=== PATIENT | female | born 1955 | race Caucasian/White ===

== ENCOUNTER 2018-02-28 07:09 | Observation (INO) | payer OTHER ==
[2018-02-28 08:32] LABS: Absolute Lymphocytes (CBC) 0.6 K/uL (0.7-4.9); Absolute Monocytes 0.5 K/uL (0.1-1.3); Absolute Neutrophil 13.1 K/uL (1.8-8.0); Basophils % 0.2 % (0-1.3); Eosinophils % 0.7 % (0-4.4); Hematocrit 32.8 % (36.0-45.0); MCH 29.2 pg (27.0-35.0); MCV 86.3 fL (80-100); MPV 8.9 fL (7.6-11.3); Monocytes % 3.3 % (3.3-12.3)
[2018-02-28] MEDS ORDERED: HYDROCODONE/APAP 10/325 TAB ONE (08:35)
[2018-02-28] MEDS ORDERED: IBUPROFEN 400 MG TAB ONE (08:35)
[2018-02-28] MEDS ORDERED: ONDANSETRON 4 MG (ODT) TAB ONE (08:35)
[2018-02-28 08:50] LABS: Potassium 3.7 mEq/L (3.6-5.0)
--- NOTE | 2018-02-28 08:51 | RAD REPORT ---
EXAM DESCRIPTION: Dasia Single View02/28/2018 7:57 am CLINICAL HISTORY: Chest pain COMPARISON: February 2017 FINDINGS: A mild patchy opacity is suspected within the mid left lung. The right lung appear clear o f acute infiltrate. The heart is normal size IMPRESSION: Mild patchy opacities suspected within the mid left lung probably indicating a mild pneu monia
[2018-02-28 08:52] LABS: Protime INR 1.06
[2018-02-28 08:56] LABS: Albumin 4.1 g/dL (3.2-5.5); Bilirubin Direct 0.2 mg/dL (0-0.2); Bilirubin Total 0.2 mg/dL (0.3-1.2); Magnesium 1.7 mg/dL (1.8-2.5); Protein, Total 7.4 g/dL (6.0-8.3)
[2018-02-28 08:59] LABS: CKMB Creatine Kinase MB 0.6 ng/ml (0.3-4.0)
[2018-02-28] MEDS ORDERED: IPRATROPIUM BROM 0.5MG/2.5ML ONE (09:20)
[2018-02-28] MEDS ORDERED: ALBUTEROL 2.5 MG/3 ML NEB SOL ONE (09:20)
[2018-02-28] MEDS ORDERED: MAGNESIUM OXIDE 400 MG TAB ONE (09:49)
[2018-02-28] MEDS ORDERED: NA CHLORIDE 0.9% 1,000 ML ONE (09:50)
[2018-02-28] MEDS ORDERED: Levofloxacin500mg IV 500 MG/100 ML BAG IV ONE (09:50)
--- NOTE | 2018-02-28 10:10 | EDPHYS ---
Physician Documentation [facility] Name: Dulce Cerna Age: 62 yrs Sex: Female : 1955 Arrival Date: 02/28/2018 Time: 07:12 Bed 17 Private MD: Brayan Valladares E ED Physician Brad Hernández HPI: 02/28 07:21 This 62 yrs old Female presents to ER via Unassigned with complaints of Fever.kav 07:34 The patient reports fever, that was measured at 103 degrees Fahrenheit, with an kav emergency department temperature of 100.6 degrees Fahrenheit. 07:35 Onset: The symptoms/episode began/occurred acutely, this morning, 4 hour(s) ago. kav Modifying factors: Recent medications: acetaminophen, 640 mg 4 hours ago. Other over the counter cough medication administered approximately 0330 am. Associated signs and symptoms: Pertinent positives: abdominal pain, backache, cough, that is dry, diarrhea, nausea. Severity of symptoms: At their worst the symptoms were mild just prior to arrival. The patient has not experienced similar symptoms in the past. The patient has not recently seen a physician. pmhx: chronic back pain, graciela's disease. 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 07:41 Patient reports back pain \T\ 1010 on physical assessment. She also c/o nausea. kav Historical: - Allergies: 07:21 Sulfa (Sulfonamide Antibiotics); rb1 07:21 PENICILLINS; rb1 - Home Meds: 07:21 amitriptyline 100 mg Oral tab 1 tab once daily [Active]; cyclobenzaprine 10 mg Oral tab rb1 as needed [Active]; fludrocortisone 0.1 mg Oral tab 1 tab once daily [Active]; liothyronine 5 mcg Oral tab 1 tab once daily [Active]; duloxetine 60 mg Oral cpDR 1 cap twice a day [Active]; aspirin 81 mg Oral TbEC 1 tab once daily [Active]; estradiol 2 mg Oral tab 1 tab once daily [Active]; hydrocortisone 10 mg Oral tab 1 tab noon [Active]; clear lax [Active]; clonazepam 2 mg Oral tab 1 tab 2 times per day [Active]; oxycodone 10 mg Oral tab 1 tab three times a day [Active]; Omeprazole Oral once daily [Active]; rosuvastatin 10 mg oral tab 1 tab once daily [Active]; zaleplon 5 mg oral cap 2 caps once daily [Active]; trazodone 50 mg Oral tab 1 tab daily [Active]; melatonin 10 mg Oral tab daily [Active]; valerian root oral oral nightly [Active]; promethazine 25 mg Oral tab 1 tab every 6 hours [Active]; - 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 - Family history:: not pertinent. - Social history:: Smoking status: Patient/guardian denies using tobacco, Patient/guardian denies using alcohol. - Hospitalizations: : No recent hospitalization is reported. - History obtained from: friend, caregiver. ROS: 07:38 Eyes: Negative for injury, pain, redness, and discharge, ENT: Negative for injury, kav pain, and discharge, Neck: Negative for injury, pain, and swelling, Cardiovascular: Negative for chest pain, palpitations, and edema, : Negative for injury, bleeding, discharge, and swelling, MS/Extremity: Negative for injury and deformity, Skin: Negative for injury, rash, and discoloration, Neuro: Negative for headache, weakness, numbness, tingling, and seizure, Psych: Negative for depression, anxiety, suicide ideation, homicidal ideation, and hallucinations, Allergy/Immunology: Negative for hives, rash, and allergies, Endocrine: Negative for neck swelling, polydipsia, polyuria, polyphagia, and marked weight changes, Hematologic/Lymphatic: Negative for swollen nodes, abnormal bleeding, and unusual bruising. 07:38 Constitutional: Positive for chills, fever. 07:38 Respiratory: Positive for cough, with no reported sputum. 07:38 Abdomen/GI: Positive for abdominal pain, of the right upper quadrant, left upper quadrant, right lower quadrant and left lower quadrant. 07:38 Back: Positive for pain at rest, pain with movement, of the lumbar area, left low back and right low back, pmhx: chronic back pain. Exam: 07:38 Head/Face: Normocephalic, atraumatic. Eyes: Pupils equal round and reactive to light, kav extra-ocular motions intact. Lids and lashes normal. Conjunctiva and sclera are non-icteric and not injected. Cornea within normal limits. Periorbital areas with no swelling, redness, or edema. ENT: Nares patent. No nasal discharge, no septal abnormalities noted. Tympanic membranes are normal and external auditory canals are clear. Oropharynx with no redness, swelling, or masses, exudates, or evidence of obstruction, uvula midline. Mucous membranes moist. Neck: Trachea midline, no thyromegaly or masses palpated, and no cervical lymphadenopathy. Supple, full range of motion without nuchal rigidity, or vertebral point tenderness. No Meningismus. Chest/axilla: Normal chest wall appearance and motion. Nontender with no deformity. No lesions are appreciated. Cardiovascular: Regular rate and rhythm with a normal S1 and S2. No gallops, murmurs, or rubs. Normal PMI, no JVD. No pulse deficits. Back: No spinal tenderness. No costovertebral tenderness. Full range of motion. Skin: Warm, dry with normal turgor. Normal color with no rashes, no lesions, and no evidence of cellulitis. MS/ Extremity: Pulses equal, no cyanosis. Neurovascular intact. Full, normal range of motion. Neuro: Awake and alert, GCS 15, oriented to person, place, time, and situation. Cranial nerves II-XII grossly intact. Motor strength 5/5 in all extremities. Sensory grossly intact. Cerebellar exam normal. Normal gait. Psych: Awake, alert, with orientation to person, place and time. Behavior, mood, and affect are within normal limits. 07:38 Constitutional: The patient appears in no acute distress, alert, awake, comfortable, non-diaphoretic, non-toxic, well developed, well hydrated, well groomed, well nourished, anxious, obese, in obvious distress, moderately distressed. 07:38 Respiratory: the patient does not display signs of respiratory distress, Respirations: normal, no acute changes, Breath sounds: decreased breath sounds, that are mild, are scattered. Vital Signs: 07:21 BP 156 / 66; Pulse 91; Resp 20; Temp 100.6(O); Pulse Ox 96% on R/A; Weight 80.29 kg; rb1 Height 5 ft. 3 in. (160.02 cm); Pain 8/10; 08:34 BP 130 / 85; Pulse 90; Resp 18; Temp 99.8(O); Pulse Ox 97% on R/A; hj 09:49 BP 137 / 70; Pulse 85; Resp 18; Pulse Ox 97% on R/A; hj 10:45 BP 127 / 89; Pulse 86; Resp 18; Pulse Ox 97% on R/A; hj 11:30 BP 96 / 39; Pulse 89; Resp 18; Temp 99.1(O); Pulse Ox 97% on R/A; hj 11:54 BP 97 / 37; Pulse 80; Resp 18; Pulse Ox 97% on R/A; hj 11:58 BP 100 / 37; Pulse 84; Resp 18; Pulse Ox 97% on R/A; hj 07:21 Body Mass Index 31.35 (80.29 kg, 160.02 cm) rb1 Procedures: 11:41 Peripheral line: by aseptic technique a peripheral line was placed in the left left mid rn bicep. MDM: 07:21 Patient medically screened. kav 07:38 Differential diagnosis: viral Infection, bacterial infection, URI, bronchitis, kav pneumonia UTI. Data reviewed: vital signs, nurses notes. 09:59 Physician consultation: Siddhartha Son MD was called at 10:00, was contacted at 10:00. ka 10:01 Physician consultation: regarding admission, and will see patient in unit. v 02/28 07:32 Order name: Amylase, Serum; Complete Time: 09:03 v 02/28 09:03 Interpretation: Within normal limits. 02/28 07:32 Order name: Blood Culture Adult (2) 02/28 07:32 Order name: BMP; Complete Time: 09:03 v 02/28 09:04 Interpretation: Normal except: NA 132; CL 97; GFR 75. 02/28 07:32 Order name: BNP; Complete Time: 09:56 v 02/28 09:58 Interpretation: Within normal limits. 02/28 07:32 Order name: CBC with Diff; Complete Time: 11:09 v 02/28 08:49 Interpretation: WBC 14.3; RBC 3.80; HGB 11.1; HCT 32.8; STIVEN% 91.8; LYM% 4.0; NEUT A kav 13.1; LYMA 0.6. 02/28 07:32 Order name: Ckmb; Complete Time: 09:03 kav 02/28 09:03 Interpretation: Within normal limits. kav 02/28 07:32 Order name: CPK; Complete Time: 09:03 kav 02/28 09:03 Interpretation: Within normal limits. kav 02/28 07:32 Order name: Hepatic Function; Complete Time: 09:03 kav 02/28 09:04 Interpretation: BILIT 0.2. kav 02/28 07:32 Order name: Lipase; Complete Time: 09:03 kav 02/28 09:04 Interpretation: Abnormal: LIP 11. kav 02/28 07:32 Order name: Magnesium; Complete Time: 09:03 kav 02/28 09:05 Interpretation: Abnormal: MG 1.7. kav 02/28 07:32 Order name: PT-INR; Complete Time: 09:03 kav 02/28 09:03 Interpretation: Within normal limits. 02/28 07:32 Order name: Ptt, Activated; Complete Time: 09:03 kav 02/28 09:03 Interpretation: Within normal limits. kav 02/28 07:32 Order name: Troponin (emerg Dept Use Only); Complete Time: 09:03 kav 02/28 09:03 Interpretation: Within normal limits. v 02/28 10:31 Order name: CBC Smear Scan; Complete Time: 10:50 EDMS 02/28 10:50 Interpretation: Normal except: Toxic gran. kav 02/28 07:32 Order name: XRAY CXR (1 view); Complete Time: 08:55 kav 02/28 08:56 Interpretation: Abnormal: Patchy apacities mid-left lung. kav 02/28 07:32 Order name: EKG; Complete Time: 07:32 kav 02/28 07:32 Order name: Cardiac monitoring; Complete Time: 07:34 kav 02/28 07:32 Order name: EKG - Nurse/Tech; Complete Time: 08:23 kav 02/28 11:59 Order name: Urine Dipstick--Ancillary (enter results) bd 02/28 07:32 Order name: Labs collected and sent; Complete Time: 08:23 kav 02/28 07:32 Order name: O2 Per Protocol; Complete Time: 07:34 kav 04/08 07:32 Order name: O2 Sat Monitoring; Complete Time: 07:34 kav Administered Medications: 07:35 Drug: Ibuprofen 800 mg Route: PO; hj 08:32 Follow up: Response: Pain is decreased hj 08:10 Drug: [place] 10 mg-325 mg 1 tabs Route: PO; hj 08:32 Follow up: Response: No adverse reaction; Pain is decreased hj 08:10 Drug: Zofran 4 mg Route: PO; hj 08:34 Follow up: Response: Nausea is decreased hj 08:11 Not Given (no iv access): NS 0.9% 1000 ml IV at 125 ml/hr continuous kav 08:11 Not Given (no iv access): Zofran 4 mg IVP once; over 2 minutes kav 08:11 Not Given (no iv access): morphine 4 mg IVP once kav 08:57 Drug: DuoNeb (3:1) (2.5 mg - 0.5 mg) 3 ml Route: Nebulizer; hj 09:28 Follow up: Response: No adverse reaction; Wheezing diminished hj 09:28 Drug: LevaQUIN 500 mg Volume: 100 ml; Route: IVPB; Infused Over: 60 mins; Site: right hj antecubital; 09:28 Drug: Magnesium Oxide 400 mg Route: PO; hj 09:41 Follow up: Response: No adverse reaction hj 09:28 Drug: NS 0.9% 1000 ml Route: IV; Rate: 75 ml/hr; Site: right antecubital; hj 09:41 Follow up: IV Status: Infusion continued upon admission hj Disposition: 16:11 Co-signature as Attending Physician, Brad Hernández MD. rn Disposition: 02/28/18 10:09 Hospitalization ordered by Siddhartha Son for Inpatient Admission. Preliminary diagnosis is Pneumonia in diseases classified elsewhere. - Bed requested for Telemetry/MedSurg (Inpatient). - Status is Inpatient Admission. hj - Condition is Stable. - Problem is new. - Symptoms have improved. UTI on Admission? No Signatures: Dispatcher [employer] EDMS Alisa Godwin Katherine, CURTAIN FELLER BLINDSTITCH CURTAIN FELLER BLINDSTITCH Brad Pompa MD MD rn Joaquin, Henry, RN RN hj Barber, Rebecca, RN RN rb1 Corrections: (The following items were deleted from the chart) 08:49 08:49 Normal except: WBC 14.3; RBC 3.80; HGB 11.1; HCT 32.8; STIVEN% 91.8; LYM% 4.0; NEUT kav A 13.1; LYMA 0.6. adonis 09:04 09:04 Abnormal. adonis lamb
--- NOTE | 2018-02-28 10:10 | ER ---
Nurse's Notes [facility] Name: Dulce Cerna Age: 62 yrs Sex: Female : 1955 Arrival Date: 02/28/2018 Time: 07:12 Bed 17 Private MD: Brayan Valladares E Diagnosis: Pneumonia in diseases classified elsewhere Presentation: 02/28 07:21 Presenting complaint: Patient states: started running a fever at 0330 this morning and rb1 has a headache. Transition of care: patient was not received from another setting of care. Onset of symptoms was February 28, 2018 at 03:30. Care prior to arrival: Medication(s) given: Tylenol, Hydrocortisone, a total of 50 mg since 0330 this morning, and Robitussin. 07:21 Method Of Arrival: Ambulatory rb1 07:21 Acuity: TRACY 3 rb1 Triage Assessment: 07:21 General: Appears in no apparent distress. comfortable, obese, Behavior is calm, rb1 cooperative, Reports chills for fever for 12-24 hours. Pain: Complains of pain in right side of forehead Pain currently is 8 out of 10 on a pain scale. Pain began 0330 this morning. Neuro: Level of Consciousness is awake, alert, obeys commands, Oriented to person, place, time, situation. Cardiovascular: Capillary refill < 3 seconds is brisk in bilateral fingers. Respiratory: Airway is patent Respiratory effort is even, unlabored, Respiratory pattern is regular, symmetrical. GI: Reports constipation, nausea. : No signs and/or symptoms were reported regarding the genitourinary system. Derm: Skin is pink, warm \T\ dry. Musculoskeletal: Range of motion: intact in all extremities. Historical: - Allergies: 07:21 Sulfa (Sulfonamide Antibiotics); rb1 07:21 PENICILLINS; rb1 - Home Meds: 07:21 amitriptyline 100 mg Oral tab 1 tab once daily [Active]; cyclobenzaprine 10 mg Oral tab rb1 as needed [Active]; fludrocortisone 0.1 mg Oral tab 1 tab once daily [Active]; liothyronine 5 mcg Oral tab 1 tab once daily [Active]; duloxetine 60 mg Oral cpDR 1 cap twice a day [Active]; aspirin 81 mg Oral TbEC 1 tab once daily [Active]; estradiol 2 mg Oral tab 1 tab once daily [Active]; hydrocortisone 10 mg Oral tab 1 tab noon [Active]; clear lax [Active]; clonazepam 2 mg Oral tab 1 tab 2 times per day [Active]; oxycodone 10 mg Oral tab 1 tab three times a day [Active]; Omeprazole Oral once daily [Active]; rosuvastatin 10 mg oral tab 1 tab once daily [Active]; zaleplon 5 mg oral cap 2 caps once daily [Active]; trazodone 50 mg Oral tab 1 tab daily [Active]; melatonin 10 mg Oral tab daily [Active]; valerian root oral oral nightly [Active]; promethazine 25 mg Oral tab 1 tab every 6 hours [Active]; - 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 - Family history:: not pertinent. - Social history:: Smoking status: Patient/guardian denies using tobacco, Patient/guardian denies using alcohol. - Hospitalizations: : No recent hospitalization is reported. - History obtained from: friend, caregiver. Screenin:35 Abuse screen: Denies threats or abuse. Denies injuries from another. Nutritional hj screening: No deficits noted. Tuberculosis screening: No symptoms or risk factors identified. Fall Risk None identified. Assessment: 07:35 General: Appears in no apparent distress. comfortable, Behavior is calm, cooperative, hj appropriate for age. General: Appears Reports fever for since 3:30 am today. Pain: Denies pain. Neuro: Level of Consciousness is awake, alert, obeys commands, Oriented to person, place, time, situation, Appropriate for age. Cardiovascular: Capillary refill < 3 seconds Patient's skin is warm and dry. Respiratory: Airway is patent Respiratory effort is even, unlabored, Respiratory pattern is regular, symmetrical. GI: No signs and/or symptoms were reported involving the gastrointestinal system. : No signs and/or symptoms were reported regarding the genitourinary system. EENT: No signs and/or symptoms were reported regarding the EENT system. Derm: No signs and/or symptoms reported regarding the dermatologic system. Musculoskeletal: No signs and/or symptoms reported regarding the musculoskeletal system. 08:30 Reassessment: Patient and/or family updated on plan of care and expected duration. Pain hj level reassessed. Patient is alert, oriented x 3, equal unlabored respirations, skin warm/dry/pink. pending results; still to insert IV;. 09:48 Reassessment: Patient and/or family updated on plan of care and expected duration. Pain hj level reassessed. Patient is alert, oriented x 3, equal unlabored respirations, skin warm/dry/pink. awaiting POC;. 10:45 Reassessment: Patient and/or family updated on plan of care and expected duration. Pain hj level reassessed. Patient is alert, oriented x 3, equal unlabored respirations, skin warm/dry/pink. feels she has fever; still no IV line, have requested ED doc to start one;. 11:51 Reassessment: Patient and/or family updated on plan of care and expected duration. Pain hj level reassessed. Patient is alert, oriented x 3, equal unlabored respirations, skin warm/dry/pink. line is in place;. Vital Signs: 07:21 BP 156 / 66; Pulse 91; Resp 20; Temp 100.6(O); Pulse Ox 96% on R/A; Weight 80.29 kg; rb1 Height 5 ft. 3 in. (160.02 cm); Pain 8/10; 08:34 BP 130 / 85; Pulse 90; Resp 18; Temp 99.8(O); Pulse Ox 97% on R/A; hj 09:49 BP 137 / 70; Pulse 85; Resp 18; Pulse Ox 97% on R/A; hj 10:45 BP 127 / 89; Pulse 86; Resp 18; Pulse Ox 97% on R/A; hj 11:30 BP 96 / 39; Pulse 89; Resp 18; Temp 99.1(O); Pulse Ox 97% on R/A; hj 11:54 BP 97 / 37; Pulse 80; Resp 18; Pulse Ox 97% on R/A; hj 11:58 BP 100 / 37; Pulse 84; Resp 18; Pulse Ox 97% on R/A; hj 07:21 Body Mass Index 31.35 (80.29 kg, 160.02 cm) rb1 ED Course: 07:12 Patient arrived in ED. as 07:12 Brayan Valladares MD is Private Physician. as 07:21 [facility]. kav 07:21 Brad Hernández MD is Attending Physician. kav 07:35 Arm band placed on right wrist. hj 07:35 Patient has correct armband on for positive identification. Placed in gown. Bed in low hj position. Call light in reach. Side rails up X2. Adult w/ patient. 07:53 Marcia Jensen, RN is Primary Nurse. ss 07:56 X-ray completed. Portable x-ray completed in exam room. Patient tolerated procedure la2 well. 07:57 XRAY CXR (1 view) In Process Unspecified. EDMS 07:59 Triage completed. rb1 08:21 Amylase, Serum Sent. hj 08:22 Blood Culture Adult (2) Sent. hj 08:22 BMP Sent. hj 08:22 BNP Sent. hj 08:22 CBC with Diff Sent. hj 08:22 Ckmb Sent. hj 08:22 CPK Sent. hj 08:22 Hepatic Function Sent. hj 08:22 Lipase Sent. hj 08:22 Magnesium Sent. hj 08:22 PT-INR Sent. hj 08:22 Ptt, Activated Sent. hj 08:23 Troponin (emerg Dept Use Only) Sent. hj 09:28 Inserted saline lock: 18 gauge in right antecubital area, using aseptic technique. hj 10:03 Siddhartha Son MD is Hospitalizing Provider. kav 11:30 Inserted saline lock: 16 gauge in left antecubital area, using aseptic technique. hj ,using aseptic technique. Dr. Hernández. 12:17 No provider procedures requiring assistance completed. Patient admitted, IV remains in hj place. intact. Administered Medications: 07:35 Drug: Ibuprofen 800 mg Route: PO; hj 08:32 Follow up: Response: Pain is decreased hj 08:10 Drug: [place] 10 mg-325 mg 1 tabs Route: PO; hj 08:32 Follow up: Response: No adverse reaction; Pain is decreased hj 08:10 Drug: Zofran 4 mg Route: PO; hj 08:34 Follow up: Response: Nausea is decreased hj 08:11 Not Given (no iv access): NS 0.9% 1000 ml IV at 125 ml/hr continuous kav 08:11 Not Given (no iv access): Zofran 4 mg IVP once; over 2 minutes kav 08:11 Not Given (no iv access): morphine 4 mg IVP once kav 08:57 Drug: DuoNeb (3:1) (2.5 mg - 0.5 mg) 3 ml Route: Nebulizer; : Follow up: Response: No adverse reaction; Wheezing diminished hj : Drug: LevaQUIN 500 mg Volume: 100 ml; Route: IVPB; Infused Over: 60 mins; Site: right antecubital; : Drug: Magnesium Oxide 400 mg Route: PO; 09:41 Follow up: Response: No adverse reaction hj : Drug: NS 0.9% 1000 ml Route: IV; Rate: 75 ml/hr; Site: right antecubital; hj 09:41 Follow up: IV Status: Infusion continued upon admission Outcome: 10:09 Decision to Hospitalize by Provider. adonis 12:17 Admitted to Med/surg accompanied by tech, via wheelchair, room 211, with chart, Report hj called to Linsey Flores RN 12:17 Condition: stable 12:17 Instructed on the need for admit, Demonstrated understanding of instructions. 12:25 Patient left the ED. Signatures: Dispatcher [employer] EDMS Cori Cavazos, HOSPITAL CHIEF EXECUTIVE OFFICER HOSPITAL CHIEF EXECUTIVE OFFICER Jaleesa Benítez Shelby, RN RN Bill Dougherty RN RN hj Barber, Rebecca, ROYAL RN Brii Esparza Corrections: (The following items were deleted from the chart) 09:49 08:34 BP 130 / 85; Pulse 90bpm; Resp 18bpm; Pulse Ox 100% RA; Temp 99.8F Oral; [facility]
--- NOTE | 2018-02-28 10:19 | EKG ---
Test Date: 2018-02-28 Test Time: 08:28:09 Renal Medicine Specialist: DOMENICA MEASUREMENT RESULTS: Intervals: Rate: 86 NV: 166 QRSD: 86 QT: 362 QTc: 433 [place]: P: 26 NV: 166 QRS: -7 T: 79 INTERPRETIVE STATEMENTS: Normal sinus rhythm Moderate voltage criteria for LVH, may be normal variant Borderline ECG Compared to ECG 02/25/2017 18:08:14 Sinus arrhythmia no longer present Electronically Signed On 02-28-18 10:19:02 CDT by Doug Kee
[2018-02-28 10:30] LABS: Blood Morphology Comment NOT SEEN (NOT SEEN); Platelet Estimate ADEQ; Toxic Granulation PRESENT; Urine White Blood Cell Casts OK
[2018-02-28 12:35] LABS: Urine Blood NEGATIVE (NEG); Urine Glucose NEGATIVE (NEG); Urine Protein NEGATIVE (NEG)
[2018-02-28 12:55] LABS: Potassium 3.8 mEq/L (3.6-5.0)
[2018-02-28 13:16] LABS: Albumin 4.1 g/dL (3.2-5.5); Bilirubin Total 0.3 mg/dL (0.3-1.2); Protein, Total 7.6 g/dL (6.0-8.3)
--- NOTE | 2018-02-28 14:09 | P.HP ---
Certification for Inpatient Patient admitted to: Observation With expected LOS: <2 Midnights Patient will require the following post-hospital care: None Practitioner: I am a practitioner with admitting privileges, knowledge of patient current condition, hospital course, and medical plan of care. Services: Services provided to patient in accordance with Admission requirements found in Title 42 Section 412.3 of the Code of Federal Regulations Patient History Date of Service: 02/28/18 Reason for admission: High fever History of Present Illness: Patient is 62 years of age admitted with sudden onset of high fever over 103 has some chest discomfort shortness of breath and slight cough admitted to the hospital with a diagnosis of pneumonia patient has a recurrent pneumonia is in the past has never smoked and no history of any cardiac problems Allergies Penicillins Allergy (Verified 02/28/18 10:52) Anaphylaxis Sulfa (Sulfonamide Antibiotics) [Sulfa(Sulfonamide Antibiotics)] Allergy ( Verified 02/28/18 10:52) Anaphylaxis NSAIDS Adverse Reaction (Uncoded 02/28/18 10:52) Nausea/Vomiting Home Medications: Amitriptyline HCl 100 mg PO DAILY 09/07/16 Aspirin [Aspir-Low] 81 mg PO DAILY 09/07/16 Duloxetine HCl 60 mg PO BID 09/07/16 Estradiol 2 mg PO DAILY 09/07/16 Fludrocortisone [Florinef *] 0.1 mg PO DAILY 09/07/16 Liothyronine Sodium [Cytomel] 5 mcg PO DAILY 09/07/16 Clonazepam 2 mg PO BID 02/28/18 Cyclobenzaprine [Flexeril*] 10 mg PO PRN 02/28/18 Hydrocortisone [Cortef*] 10 mg PO NOON 02/28/18 Melatonin 10 mg PO BEDTIME 02/28/18 Omeprazole 10 mg PO DAILY 02/28/18 Oxycodone HCl 10 mg PO TID 02/28/18 Polyethylene Glycol 3350 [Clearlax] 17 gm PO PRN 02/28/18 Promethazine HCl 25 mg PO Q6HR 02/28/18 Rosuvastatin [Crestor*] 10 mg PO DAILY 02/28/18 Trazodone [Desyrel*] 50 mg PO DAILY 02/28/18 Valerian Root Extract [Valerian] 150 mg PO BEDTIME 02/28/18 Zaleplon 10 mg PO DAILY 02/28/18 - Past Medical/Surgical History Diabetic: No -: Addisons -: Irritable Bowel Syndrome -: Cholecystectomy -: Appy -: -: Hysterectomy - Social History Smoking Status: Former smoker Alcohol use: No CD- Drugs: No Caffeine use: No Review of Systems 10-point ROS is otherwise unremarkable General: Fever, Weakness Respiratory: Cough, Shortness of Breath Physical Examination - Vital Signs Temperature: 99.1 F Blood Pressure: 100/37 Pulse: 84 Respirations: 18 - Physical Exam General: Alert, Oriented x3 HEENT: Atraumatic Neck: Supple Respiratory: Crackles/rales (Patient has some crackles on the left side right lung is clear) Cardiovascular: No edema, Regular rate/rhythm, Normal S1 S2 Gastrointestinal: Normal bowel sounds, Soft and benign Musculoskeletal: No clubbing, No swelling Integumentary: No rashes, No breakdown Neurological: Normal speech, Normal strength at 5/5 x4 extr - Studies Laboratory Data (last 24 hrs) 02/28/18 08:07: Sodium 134 L, Potassium 3.8, BUN 8, Creatinine 0.85, Glucose 116 , Total Bilirubin 0.3, AST 43 H, ALT 28, Alkaline Phosphatase 97 02/28/18 08:07: PT 12.5, INR 1.06, APTT 30.0 02/28/18 08:07: WBC 14.3 H, Hgb 11.1 L, Hct 32.8 L, Plt Count 230 02/28/18 08:07: B-Natriuretic Peptide 28 02/28/18 08:07: Sodium 132 L, Potassium 3.7, BUN 8, Creatinine 0.78, Glucose 118 , Magnesium 1.7 L, Total Bilirubin 0.2 L, AST 42, ALT 28, Alkaline Phosphatase 97, Amylase 44, Lipase 11 L Assessment and Plan - Problems (Diagnosis) (1) Pneumonia Current Visit: Yes Status: Acute Plan: Patient is 62 years of age admitted with sudden onset of fever some chest discomfort cough she appears to have a left mid-zone infiltrate white count is mildly elevated most likely she has a pneumonia patient can be discharged home tomorrow on antibiotics for community-acquired pneumonia labs x-rays reviewed all medications reviewed patient has a slight fever resume regular diet patient has Walford's disease Qualifiers: Pneumonia type: due to unspecified organism - Advance Directives Does patient have a Living Will: No Does patient have a Durable POA for Healthcare: No
[2018-02-28] MEDS ORDERED: POLYETHYLENE GLYCOL 17 GM PO SCH (14:15)
[2018-02-28] MEDS ORDERED: clonazePAM 1 MG TAB PO SCH (15:00)
[2018-02-28] MEDS ORDERED: HYDROCORTISONE 10 MG TAB PO SCH (15:00)
[2018-02-28] MEDS ORDERED: CYCLOBENZAPRINE 10 MG TAB PO SCH (15:00)
[2018-02-28] MEDS ORDERED: PROMETHAZINE 25 MG TABLET PO PRN (15:25)
[2018-02-28 15:59] VITALS: BMI 31.3
[2018-02-28] MEDS: PROMETHAZINE 25 MG TABLET PO SCH (17:23)
[2018-02-28] MEDS ORDERED: PROMETHAZINE 25 MG TABLET PO SCH (18:00)
[2018-02-28] MEDS ORDERED: AMITRIPTYLINE HCL 100 MG PO SCH (21:00)
[2018-02-28] MEDS ORDERED: CLONAZEPAM 2 MG PO SCH (21:00)
[2018-02-28] MEDS ORDERED: ROSUVASTATIN 10 MG TAB PO SCH ×2 (21:00)
[2018-02-28] MEDS: CYCLOBENZAPRINE 10 MG TAB PO SCH (21:22)
[2018-02-28] MEDS: DULOXETINE HCL 60 MG PO SCH (21:23)
[2018-02-28] MEDS: CLONAZEPAM 2 MG PO SCH (21:25)
[2018-02-28] MEDS: OXYCODONE HCL 10 MG PO SCH (21:25)
[2018-03-01 05:09] VITALS: O2SAT 95
[2018-03-01] MEDS: PROMETHAZINE 25 MG TABLET PO SCH ×2 (05:36)
[2018-03-01] MEDS ORDERED: LIOTHYRONINE SOD 5 MCG TAB PO SCH ×2 (06:00)
[2018-03-01] MEDS ORDERED: FLUDROCORTISONE 0.1 MG TAB PO SCH ×2 (08:00)
[2018-03-01 08:06] LABS: Absolute Lymphocytes (CBC) 2.4 K/uL (0.7-4.9); Absolute Monocytes 0.6 K/uL (0.1-1.3); Absolute Neutrophil 7.4 K/uL (1.8-8.0); Basophils % 0.5 % (0-1.3); Eosinophils % 2.3 % (0-4.4); Hematocrit 32.4 % (36.0-45.0); Lymphocytes % 22.3 % (15.3-44.8); MCH 28.9 pg (27.0-35.0); MCV 88.7 fL (80-100); MPV 8.4 fL (7.6-11.3); Monocytes % 5.2 % (3.3-12.3); RBC Red Blood Cell Count 3.66 M/uL (3.86-4.86)
[2018-03-01] MEDS: DULOXETINE HCL 60 MG PO SCH (08:29)
[2018-03-01] MEDS: CYCLOBENZAPRINE 10 MG TAB PO SCH (08:31)
[2018-03-01] MEDS: CLONAZEPAM 2 MG PO SCH (08:32)
[2018-03-01] MEDS: OXYCODONE HCL 10 MG PO SCH (08:33)
[2018-03-01 08:40] VITALS: BP 130/70; TEMP 98.5
[2018-03-01] MEDS ORDERED: DULOXETINE 30 MG PO SCH (09:00)
[2018-03-01] MEDS ORDERED: ASPIRIN EC 81 MG TAB PO SCH (09:00)
[2018-03-01] MEDS ORDERED: levoFLOXacin 500 MG TAB PO SCH (09:00)
[2018-03-01] MEDS ORDERED: TRAZODONE 50 MG TABLET PO SCH ×3 (09:00→21:00)
[2018-03-01] MEDS ORDERED: HOME MED 1 EA UNK (Amitriptyline Hcl [Amitriptyline Hcl] 100 MG) PO SCH (09:00)
[2018-03-01] MEDS ORDERED: POLYETHYL GLY 3350 17 GM/DOSE PO SCH (09:00)
[2018-03-01] MEDS ORDERED: ZALEPLON 5 MG PO PRN (09:00)
[2018-03-01] MEDS ORDERED: POLYETHYL GLY 3350 17 GM/DOSE PO PRN (09:00)
--- NOTE | 2018-03-01 09:54 | P.DS ---
Admission Date: 02/28/18 Discharge Date: 03/01/18 Primary Care Provider: Dr. Valladares Disposition: ROUTINE DISCHARGE Discharge Condition: GOOD Reason for Admission: High fever - Problems (1) Hyperlipidemia Current Visit: Yes Status: Chronic Qualifiers: Hyperlipidemia type: unspecified Qualified Code(s): E78.5 - Hyperlipidemia , unspecified (2) GERD (gastroesophageal reflux disease) Current Visit: Yes Status: Chronic Qualifiers: Esophagitis presence: esophagitis presence not specified Qualified Code(s) : K21.9 - Gastro-esophageal reflux disease without esophagitis (3) Depression with anxiety Current Visit: Yes Status: Chronic (4) Irritable bowel disease Current Visit: Yes Status: Chronic Qualifiers: Irritable bowel syndrome type: unspecified Qualified Code(s): K58.9 - Irritable bowel syndrome without diarrhea (5) Chronic pain Current Visit: Yes Status: Chronic Qualifiers: Chronic pain type: chronic pain syndrome Qualified Code(s): G89.4 - Chronic pain syndrome (6) Pneumonia Current Visit: Yes Status: Acute Qualifiers: Pneumonia type: due to unspecified organism Laterality: left Lung location: lower lobe of lung Qualified Code(s): J18.1 - Lobar pneumonia, unspecified organism (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 Patient was evaluated in the emergency room. She was found to have pneumonia on the left side. Patient had mild elevation in her white count. The patient was admitted for observation. Hospital Course: Patient presented with cough and shortness of breath. Patient found to have left lobe pneumonia. Patient did well during her stay. The patient did not require any oxygen at discharge. At discharge she was without any significant shortness of breath. Oxygen saturations were above 90% on room air. At discharge patient will continue with Levaquin 500 mg 1 pill daily for 7 days. Tessalon Perles 100 mg 1 pill 3 times a day as needed for cough will be provided. Recommendation is to recheck chest x-ray in 2-4 weeks to monitor resolution. This can be done by her PCP. Patient has chronic pain. She will continue with her medication. Further adjustment can be done by her PCP. 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 She will continue with her medication. Patient has depression with anxiety. She will continue with her medication. Further adjustment can be done by her PCP. Patient has hyperlipidemia. She will continue with her medication. Patient has GERD and Irritable bowel syndrome. She will continue with her medication. Vital Signs/Physical Exam: Temp Pulse Resp BP Pulse Ox 98.5 F 78 16 130/70 94 03/01/18 08:00 03/01/18 08:00 03/01/18 08:00 03/01/18 08:00 03/01/18 08:00 General: Alert, In no apparent distress, Oriented x3, Cooperative HEENT: Atraumatic, Mucous membr. moist/pink Neck: Supple Respiratory: Clear to auscultation bilaterally, Normal air movement Cardiovascular: Normal pulses, Regular rate/rhythm Gastrointestinal: Normal bowel sounds, Soft and benign, Non-distended, No tenderness, No masses, No rebound, No guarding Musculoskeletal: No erythema, No tenderness, No warmth Integumentary: No tenderness/swelling, No erythema, No warmth, No cyanosis Neurological: Normal speech, Normal strength at 5/5 x4 extr, Normal tone, Normal affect Laboratory Data at Discharge: WBC 10.6 K/uL (4.3-10.9) D 03/01/18 07:55 Hgb 10.6 g/dL (12.0-15.0) L 03/01/18 07:55 Hct 32.4 % (36.0-45.0) L 03/01/18 07:55 Plt Count 231 K/uL (152-406) 03/01/18 07:55 PT 12.5 SECONDS (9.5-12.5) 02/28/18 08:07 INR 1.06 02/28/18 08:07 APTT 30.0 SECONDS (24.3-36.9) 02/28/18 08:07 Sodium 134 mEq/L (135-145) L 02/28/18 08:07 Potassium 3.8 mEq/L (3.6-5.0) 02/28/18 08:07 BUN 8 mg/dL (6-20) 02/28/18 08:07 Creatinine 0.85 mg/dL (0.44-1.00) 02/28/18 08:07 Glucose 116 mg/dL (65-120) 02/28/18 08:07 Magnesium 1.7 mg/dL (1.8-2.5) L 02/28/18 08:07 Total Bilirubin 0.3 mg/dL (0.3-1.2) 02/28/18 08:07 AST 43 IU/L (10-42) H 02/28/18 08:07 ALT 28 IU/L (10-60) 02/28/18 08:07 Alkaline Phosphatase 97 IU/L (42-121) 02/28/18 08:07 B-Natriuretic Peptide 28 pg/ml (<=100) 02/28/18 08:07 Amylase 44 U/L (28-100) 02/28/18 08:07 Lipase 11 U/L (22-51) L 02/28/18 08:07 Home Medications: Amitriptyline HCl 100 mg PO DAILY 09/07/16 Aspirin [Aspir-Low] 81 mg PO DAILY 09/07/16 Duloxetine HCl 60 mg PO BID 09/07/16 Estradiol 2 mg PO DAILY 09/07/16 Fludrocortisone [Florinef *] 0.1 mg PO DAILY 09/07/16 Liothyronine Sodium [Cytomel] 5 mcg PO DAILY 09/07/16 Clonazepam 2 mg PO BID 02/28/18 Cyclobenzaprine [Flexeril*] 10 mg PO PRN 02/28/18 Hydrocortisone [Cortef*] 10 mg PO NOON 02/28/18 Melatonin 10 mg PO BEDTIME 02/28/18 Omeprazole 10 mg PO DAILY 02/28/18 Oxycodone HCl 10 mg PO TID 02/28/18 Polyethylene Glycol 3350 [Clearlax] 17 gm PO PRN 02/28/18 Promethazine HCl 25 mg PO Q6HR 02/28/18 Rosuvastatin [Crestor*] 10 mg PO DAILY 02/28/18 Trazodone [Desyrel*] 50 mg PO DAILY 02/28/18 Valerian Root Extract [Valerian] 150 mg PO BEDTIME 02/28/18 Zaleplon 10 mg PO DAILY 02/28/18 Benzonatate [Tessalon Perle] 100 mg PO TID PRN #15 cap 03/01/18 Levofloxacin [Levaquin*] 500 mg PO DAILY #7 tab 03/01/18 New Medications: Benzonatate [Tessalon Perle] 100 mg PO TID PRN #15 cap PRN Reason: Cough Levofloxacin [Levaquin*] 500 mg PO DAILY #7 tab Patient Discharge Instructions: 1. Patient will need to follow up with her PCP in 1 week to follow up this hospitalization. 2. Patient presented with cough and shortness of breath. Patient found to have left lobe pneumonia. At discharge patient will continue with Levaquin 500 mg 1 pill daily for 7 days. Tessalon Perles 100 mg 1 pill 3 times a day as needed for cough will be provided. Recommendation is to recheck chest x-ray in 2-4 weeks to monitor resolution. This can be done by her PCP. 3. Patient has chronic pain. She will continue with her medication. Further adjustment can be done by her PCP. 4. 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 She will continue with her medication. 5. Patient has depression with anxiety. She will continue with her medication. Further adjustment can be done by her PCP. 6. Patient has hyperlipidemia. She will continue with her medication. 7. Patient has GERD and Irritable bowel syndrome. She will continue with her medication. Diet: AHA Activity: Fall precautions Time spent managing pt's care (in minutes): 55
[2018-03-01] MEDS ORDERED: Levofloxacin500mg IV 500 MG/100 ML BAG IV SCH (10:00)
[2018-03-01] MEDS ORDERED: HYDROCORTISONE 10 MG TAB PO SCH ×2 (12:00)
== END 2018-03-01 11:30 | disposition home or self-care (01) ==
LOC: ER 07:09 → ERHOLD 10:33 → INTOOBSV 10:33 → ERHOLD 10:34 → 2ND 12:10
PROVIDERS: ADMIT Internal Medicine Sleep Medicine; ATTEND Family Medicine
DX: J18.9 Pneumonia, unspecified organism (principal); E27.1 Primary adrenocortical insufficiency; K58.9 Irritable bowel syndrome, unspecified; E78.5 Hyperlipidemia, unspecified; K21.9 Gastro-esophageal reflux disease without esophagitis; G89.29 Other chronic pain; Z87.891 Personal history of nicotine dependence
CPT/HCPCS: 93005; 87040 ×2; 85025 ×2; 80048; 36415 ×2; 82150; 83735; 82550; 87205; 85610; 80076; 85730; 81003; 84484; 82553; 83690; 80053; 83880; 71045; 94640; 96374; 99285; J7030; G0378 ×2

== ENCOUNTER 2018-04-07 15:03 | Observation (INO) | payer OTHER ==
--- NOTE | 2018-04-07 17:14 | RAD REPORT ---
EXAM DESCRIPTION: CT - Head Brain Wo Cont - 04/07/2018 5:07 pm CLINICAL HISTORY: Syncope COMPARISON: February 2017 TECHNIQUE: Axial 5 mm thick images of the head were obtained without IV contrast. All CT scans are performed using dose optimization technique as appropriate and may include automated exposure control or mA/KV adjustment according to patient size. FINDINGS: No intracranial hemorrhage, mass, edema or shift of mid-line structures. No acute cortical based infarction. Atrophy is minimal. Moderate chronic ischemic changes are present. No abnormal ext ra-axial fluid collections. Ventricles are in proportion to any volume loss. Physiologic calcificatio ns are present. Mastoid air cells and visualized portions of the paranasal sinuses are clear. No acute bony findings. IMPRESSION: No acute intracranial finding. Minimal atrophy and more moderate chronic ischemic change present and similar to comparison.
--- NOTE | 2018-04-07 17:20 | EKG ---
Test Date: 2018-04-07 Test Time: 16:59:02 Literacy Education Professor: RAYMON MEASUREMENT RESULTS: Intervals: Rate: 70 SC: 148 QRSD: 88 QT: 400 QTc: 432 Burgess: P: 56 SC: 148 QRS: 11 T: 45 INTERPRETIVE STATEMENTS: Normal sinus rhythm Normal ECG Compared to ECG 02/28/2018 08:28:09 Left ventricular hypertrophy no longer present Electronically Signed On 04-07-18 17:19:40 CDT by Doug Kee
[2018-04-07 17:23] LABS: Urine Blood NEGATIVE (NEG); Urine Glucose NEGATIVE (NEG); Urine Protein NEGATIVE (NEG)
[2018-04-07] MEDS ORDERED: MORPHINE 4 MG/ML SYR ONE (17:29)
[2018-04-07] MEDS ORDERED: ONDANSETRON 4 MG/2 ML VIAL ONE ×2 (17:30→20:31)
--- NOTE | 2018-04-07 17:45 | RAD REPORT ---
EXAM DESCRIPTION: RAD - Chest Single View - 04/07/2018 5:15 pm CLINICAL HISTORY: Syncope, shortness of breath COMPARISON: February 28 TECHNIQUE: AP portable chest image was obtained 1710 hours . FINDINGS: Lungs are clear. Ill-defined opacification in the left midlung field on the February examinat ion has resolved. Trachea is midline. Heart and vasculature are normal. No measurable pleural effusio n and no pneumothorax. No gross bony abnormality seen. No acute aortic findings suspected. IMPRESSION: No acute cardiopulmonary process.
[2018-04-07 19:27] LABS: Absolute Lymphocytes (CBC) 1.3 K/uL (0.7-4.9); Absolute Monocytes 0.3 K/uL (0.1-1.3); Absolute Neutrophil 5.4 K/uL (1.8-8.0); Basophils % 0.3 % (0-1.3); Eosinophils % 0.8 % (0-4.4); Hematocrit 32.6 % (36.0-45.0); Lymphocytes % 18.1 % (15.3-44.8); MCH 28.1 pg (27.0-35.0); MCV 85.4 fL (80-100); MPV 8.6 fL (7.6-11.3); RBC Red Blood Cell Count 3.81 M/uL (3.86-4.86)
[2018-04-07 19:31] LABS: Protime INR 1.01
[2018-04-07 19:40] LABS: Bicarbonate 33 mEq/L (21-31); Glucose Level 101 mg/dL (65-120); Sodium Level 138 mEq/L (135-145)
[2018-04-07 19:46] LABS: ALT/SGPT 22 IU/L (10-60); AST/SGOT 23 IU/L (10-42); Albumin 3.9 g/dL (3.2-5.5); Alkaline Phosphatase 102 IU/L (42-121); BUN Blood Urea Nitrogen 9 mg/dL (6-20); Bilirubin Direct < 0.1 mg/dL (0-0.2); Bilirubin Total 0.3 mg/dL (0.3-1.2); Creatine Phosphokinase 38 IU/L (22-269); Magnesium 1.8 mg/dL (1.8-2.5); Protein, Total 7.3 g/dL (6.0-8.3)
[2018-04-07 19:48] LABS: CKMB Creatine Kinase MB 0.7 ng/ml (0.3-4.0)
--- NOTE | 2018-04-07 20:15 | ER ---
Nurse's Notes [facility] Name: Dulce Cerna Age: 62 yrs Sex: Female : 1955 Arrival Date: 04/07/2018 Time: 15:07 Bed 24 Private MD: Brayan Valladares E Diagnosis: Syncope and collapse;Weakness;Abdominal tenderness Presentation: 04/07 15:44 Presenting complaint: Presenting complaint: Patient states: Reports syncope when aj standing or moving too quickly. Patient was sent by Dr Valladares office after syncope in office. Also reports RUQ abdominal pain. Patient told she needed to come to ER to be admitted. 15:44 Transition of care: patient was not received from another setting of care. Onset of aj symptoms was April 07, 2018. Care prior to arrival: None. 15:44 Method Of Arrival: Wheelchair aj 15:44 Acuity: TRACY 3 aj 18:04 Initial Sepsis Screen: Does the patient meet any 2 criteria? No. Patient's initial tl3 sepsis screen is negative. Does the patient have a suspected source of infection? No. Patient's initial sepsis screen is negative. Triage Assessment: 15:47 General: Appears in no apparent distress. comfortable, Behavior is calm, cooperative, aj appropriate for age. Pain: Complains of pain in right upper quadrant. Neuro: Level of Consciousness is awake, alert, obeys commands, Oriented to person, place, time, situation, Appropriate for age Reports headache. Respiratory: Airway is patent Respiratory effort is even, unlabored, Respiratory pattern is regular, symmetrical. GI: Reports upper abdominal pain, nausea. Derm: Skin is intact, is healthy with good turgor, Skin is pink, warm \T\ dry. normal. Historical: - Allergies: 15:47 PENICILLINS; aj 15:47 Sulfa (Sulfonamide Antibiotics); aj - Home Meds: 15:47 aspirin 81 mg Oral TbEC 1 tab once daily [Active]; clear lax [Active]; clonazepam 2 mg aj Oral tab 1 tab 2 times per day [Active]; estradiol 2 mg Oral tab 1 tab once daily [Active]; melatonin 10 mg Oral tab daily [Active]; liothyronine 5 mcg Oral tab 1 tab once daily [Active]; oxycodone 10 mg Oral tab 1 tab three times a day [Active]; rosuvastatin 10 mg Oral tab 1 tab once daily [Active]; promethazine 25 mg Oral tab 1 tab every 6 hours [Active]; trazodone 50 mg Oral tab 1 tab daily [Active]; valerian root Oral nightly [Active]; zaleplon 5 mg Oral cap 2 caps once daily [Active]; 21:27 amitriptyline 100 mg Oral tab 1 tab once daily [Active]; cyclobenzaprine 10 mg Oral tab tl3 1 tab 2 times per day [Active]; duloxetine 90mg Oral cpDR 1 cap once daily [Active]; fludrocortisone 0.1 mg Oral tab 2 tabs once daily [Active]; hydrocortisone 10 mg Oral tab 2 tabs take two tablets in the am and one tablet at 2pm [Active]; omeprazole 40 mg oral cpDR 1 cap once daily [Active]; - PMHx: 15:47 addisons; Irritable bowel syndrome; TIA; aj - PSHx: 15:47 Hysterectomy; Appendectomy; Cholecystectomy; ; aj - Immunization history:: Adult Immunizations up to date. - Social history:: Smoking status: Patient/guardian denies using tobacco. Screenin:00 Abuse screen: Denies threats or abuse. Nutritional screening: No deficits noted. tl3 Tuberculosis screening: No symptoms or risk factors identified. Fall Risk Fall in past 12 months (25 points). Assessment: 16:00 General: Appears uncomfortable, well groomed, well developed, well nourished, Behavior tl3 is calm, cooperative, appropriate for age. Pain: Complains of pain in abdomen and right upper quadrant. Neuro: Level of Consciousness is awake, alert, obeys commands, Oriented to person, place, time, situation, Appropriate for age. Neuro: Reports dizziness, a syncopal episode. Cardiovascular: Heart tones S1 S2 present Rhythm is regular. Respiratory: Airway is patent Trachea midline Respiratory effort is even, unlabored, Respiratory pattern is regular, symmetrical, Breath sounds are clear bilaterally. GI: Abdomen is round Abdomen is tender to palpation in abdomen and right upper quadrant. : No signs and/or symptoms were reported regarding the genitourinary system. EENT: No signs and/or symptoms were reported regarding the EENT system. Derm: No signs and/or symptoms reported regarding the dermatologic system. Musculoskeletal: No signs and/or symptoms reported regarding the musculoskeletal system. 17:40 Reassessment: Patient appears in no apparent distress at this time. No changes from tl3 previously documented assessment. Patient and/or family updated on plan of care and expected duration. Pain level reassessed. Patient is alert, oriented x 3, equal unlabored respirations, skin warm/dry/pink. 17:43 Reassessment: Patient appears in no apparent distress at this time. No changes from tl3 previously documented assessment. Patient and/or family updated on plan of care and expected duration. Pain level reassessed. Patient is alert, oriented x 3, equal unlabored respirations, skin warm/dry/pink. ROYAL Trujillo placed IV, not able to draw blood. 18:05 Reassessment:. tl3 18:54 Reassessment: Patient appears in no apparent distress at this time. No changes from tl3 previously documented assessment. Patient and/or family updated on plan of care and expected duration. Pain level reassessed. Patient is alert, oriented x 3, equal unlabored respirations, skin warm/dry/pink. pt stuck multiple times for blood by RN's and twice by Lab unsuccessfully, Ultra sound requested. 21:16 Reassessment: pt in radiology for CT and ultra sound. tl3 21:30 Reassessment: Patient appears in no apparent distress at this time. No changes from tl3 previously documented assessment. Patient and/or family updated on plan of care and expected duration. Pain level reassessed. Patient is alert, oriented x 3, equal unlabored respirations, skin warm/dry/pink. Vital Signs: 15:47 BP 134 / 78; Pulse 76; Resp 18; Temp 97.8; Pulse Ox 96% on R/A; Weight 79.38 kg; Height aj 5 ft. 3 in. (160.02 cm); 18:54 BP 125 / 65; Pulse 68; Resp 18; Pulse Ox 100% on 2 lpm NC; tl3 21:30 BP 136 / 102; Pulse 68; Resp 18; Temp 97.7(O); Pulse Ox 97% on R/A; tl3 23:16 BP 166 / 89; Pulse 64; Resp 18; Pulse Ox 99% on R/A; tl3 15:47 Body Mass Index 31.00 (79.38 kg, 160.02 cm) ED Course: 15:07 Patient arrived in ED. rg4 15:07 Brayan Valladares MD is Private Physician. rg4 15:15 Jesus Butt MD is Attending Physician. kdr 15:46 Triage completed. aj 15:47 Arm band placed on right wrist. Patient placed in an exam room. aj 16:00 Aubree Guerra, RN is Primary Nurse. tl3 16:00 Patient has correct armband on for positive identification. Placed in gown. Bed in low tl3 position. Call light in reach. Side rails up X2. Pulse ox on. NIBP on. 16:00 No provider procedures requiring assistance completed. tl3 16:59 EKG done, by dialysis biomed technician. reviewed by Jesus Butt MD. at1 17:07 CT Head Brain wo Cont In Process Unspecified. EDMS 17:12 X-ray completed. Portable x-ray completed in exam room. Patient tolerated procedure bb2 well. 17:13 XRAY Chest (1 view) In Process Unspecified. EDMS 17:40 Inserted saline lock: 24 gauge in right forearm, using aseptic technique. tl3 19:53 Attending Physician role handed off by Jesus Butt MD christ 19:53 Fletcher Pruitt MD is Attending Physician. christ 20:08 Alicia Esquivel MD is Hospitalizing Provider. christ 20:25 Radiology exam delayed due to patient getting meds before coming to CT. nj 20:[address] via stretcher. nj 20:51 to ultrasound. nj 20:53 CT completed. Patient tolerated procedure well. nj 21:20 Ultrasound completed. Patient tolerated well. cy 23:39 Patient admitted, IV remains in place. tl3 04/08 14:28 Basic Metabolic Panel Sent. tl3 14:28 BNP Sent. tl3 14:28 CBC with Diff Sent. tl3 Administered Medications: 04/07 20:45 Drug: morphine 4 mg Route: IVP; Site: left antecubital; bb 21:16 Follow up: Response: No adverse reaction; Pain is decreased tl3 20:45 Drug: Zofran 4 mg Route: IVP; Site: left antecubital; bb 21:16 Follow up: Response: No adverse reaction; Nausea is decreased tl3 20:46 Not Given (Other Intervention Used): Pepcid 20 mg IVP once bb 20:46 Drug: Solu-CORTEF 100 mg Route: IVP; Site: left antecubital; bb 04/08 14:27 Follow up: Response: No adverse reaction tl3 04/07 21:36 Drug: ProTONIX 40 mg Route: IVP; Infused Over: 3 mins; Site: left antecubital; tl3 22:14 Follow up: Response: No adverse reaction tl3 Point of Care Testing: Blood Glucose: 23:20 Blood Glucose: 101 mg/dL; tl3 Ranges: Outcome: 20:14 Decision to Hospitalize by Provider. christ 23:39 Admitted to Med/surg accompanied by tech, via stretcher, with chart, Report called to tl3 Hallie PAIGE 23:39 Condition: stable 23:39 Instructed on the need for admit, Demonstrated understanding of instructions. 04/08 00:16 Patient left the ED. tl3 Signatures: Dispatcher [employer] EDElodia Murillo RN Fletcher Interiano MD MD cha Rittger, Kevin, MD MD kdr Ballard, Brenda, RN RN bb gonzales, Amanda, shroudman EKG Tat1 Noemy Rucker rg4 Efren Davis Brittany bb2 Saira Parsons Tammy, RN RN tl3 Corrections: (The following items were deleted from the chart) 04/07 15:46 15:44 Presenting [facility]: [facility] 15:47 Home Meds: amitriptyline 100 mg Oral tab 1 tab once daily; [facility] 15:47 Home Meds: cyclobenzaprine 10 mg Oral tab as needed; [facility] 15:47 Home Meds: duloxetine 60 mg Oral cpDR 1 cap twice a day; [facility] 15:47 Home Meds: fludrocortisone 0.1 mg Oral tab 1 tab once daily; [facility] 15:47 Home Meds: hydrocortisone 10 mg Oral tab 1 tab Noon; 2 tabs in the morning; [email or web address] 15:47 Home Meds: Omeprazole Oral once daily; [facility]
--- NOTE | 2018-04-07 20:15 | EDPHYS ---
Physician Documentation [facility] Name: Dulce Cerna Age: 62 yrs Sex: Female : 1955 Arrival Date: 04/07/2018 Time: 15:07 Bed 24 Private MD: Brayan Valladares E ED Physician Fletcher Pruitt HPI: 04/07 18:24 This 62 yrs old Female presents to ER via Wheelchair with complaints of kdr Syncope. 18:24 The patient has experienced syncope, became unresponsive, collapsed, lost kdr consciousness. Onset: The symptoms/episode began/occurred suddenly, The patient has been having intermittent episodes for the last 1 - 2 weeks. States that sometimes when she gets up and walks a few steps, she will become faint and collapse to the floor. She indicates that she has a history of falling but the fainting is new. She believes that she is only out for a few seconds. Today, she had an episode when entering Dr. Tarango office and was then sent to the ED for eval and possible admission. Duration: The patient has had multiple episodes, that last an unknown period of time. The patient presents to the emergency department with weakness of the difficulty standing, Stands and then falls. Context: occurred at home, at an office, occurred while the patient was standing, Stood then walked a few feet and then fell. Associated signs and symptoms: The patient has no apparent associated signs or symptoms. Severity of symptoms: At their worst the symptoms were mild just prior to arrival, in the emergency department the symptoms have resolved. Context: the episode(s) was witnessed, by a bystander, occurred at home, at an office, occurred while the patient was standing, Just prior to the episode the patient experienced dizziness, weakness. Patient's baseline: Neuro: alert and fully oriented, Motor: no deficits, Ambulation: walks without assistance, Speech: normal, The patient has a previous history of vertigo, Chronic back pain. Current symptoms: Currently, the patient is not experiencing any symptoms, the patient feels back to baseline. Associated injury: The patient did not suffer any apparent associated injury. Associated signs and symptoms: The patient has no apparent associated signs or symptoms, Pertinent positives: The patient has been having multiple falls and contusions with exacerbation of her chronic back pain. The patient has experienced similar episodes in the past, a few times. The patient has been recently seen by a physician: the patient's primary care provider. Historical: - Allergies: 15:47 PENICILLINS; aj 15:47 Sulfa (Sulfonamide Antibiotics); aj - Home Meds: 15:47 aspirin 81 mg Oral TbEC 1 tab once daily [Active]; clear lax [Active]; clonazepam 2 mg aj Oral tab 1 tab 2 times per day [Active]; estradiol 2 mg Oral tab 1 tab once daily [Active]; melatonin 10 mg Oral tab daily [Active]; liothyronine 5 mcg Oral tab 1 tab once daily [Active]; oxycodone 10 mg Oral tab 1 tab three times a day [Active]; rosuvastatin 10 mg Oral tab 1 tab once daily [Active]; promethazine 25 mg Oral tab 1 tab every 6 hours [Active]; trazodone 50 mg Oral tab 1 tab daily [Active]; valerian root Oral nightly [Active]; zaleplon 5 mg Oral cap 2 caps once daily [Active]; 21:27 amitriptyline 100 mg Oral tab 1 tab once daily [Active]; cyclobenzaprine 10 mg Oral tab tl3 1 tab 2 times per day [Active]; duloxetine 90mg Oral cpDR 1 cap once daily [Active]; fludrocortisone 0.1 mg Oral tab 2 tabs once daily [Active]; hydrocortisone 10 mg Oral tab 2 tabs take two tablets in the am and one tablet at 2pm [Active]; omeprazole 40 mg oral cpDR 1 cap once daily [Active]; - PMHx: 15:47 addisons; Irritable bowel syndrome; TIA; aj - PSHx: 15:47 Hysterectomy; Appendectomy; Cholecystectomy; ; aj - Immunization history:: Adult Immunizations up to date. - Social history:: Smoking status: Patient/guardian denies using tobacco. ROS: 18:24 Constitutional: Negative for fever, chills, and weight loss, Eyes: Negative for injury, kdr pain, redness, and discharge, Neck: Negative for injury, pain, and swelling, Cardiovascular: Negative for chest pain, palpitations, and edema, Respiratory: Negative for shortness of breath, cough, wheezing, and pleuritic chest pain, Abdomen/GI: Negative for abdominal pain, nausea, vomiting, diarrhea, and constipation, : Negative for injury, bleeding, discharge, and swelling, MS/Extremity: Negative for injury and deformity, Skin: Negative for injury, rash, and discoloration, Psych: Negative for depression, anxiety, suicide ideation, homicidal ideation, and hallucinations, Allergy/Immunology: Negative for hives, rash, and allergies, Endocrine: Negative for neck swelling, polydipsia, polyuria, polyphagia, and marked weight changes, Hematologic/Lymphatic: Negative for swollen nodes, abnormal bleeding, and unusual bruising. 18:24 Back: Positive for decreased range of motion, pain at rest, pain with movement, Negative for injury or acute deformity, radiated pain. 18:24 Neuro: Positive for syncope, near syncope, weakness. Exam: 18:24 Constitutional: This is a well developed, well nourished patient who is awake, alert, kdr and in no acute distress. Head/Face: Normocephalic, atraumatic. Eyes: Pupils equal round and reactive to light, extra-ocular motions intact. Lids and lashes normal. Conjunctiva and sclera are non-icteric and not injected. Cornea within normal limits. Periorbital areas with no swelling, redness, or edema. Neck: Trachea midline, no thyromegaly or masses palpated, and no cervical lymphadenopathy. Supple, full range of motion without nuchal rigidity, or vertebral point tenderness. No Meningismus. Chest/axilla: Normal chest wall appearance and motion. Nontender with no deformity. No lesions are appreciated. Cardiovascular: Regular rate and rhythm with a normal S1 and S2. No gallops, murmurs, or rubs. Normal PMI, no JVD. No pulse deficits. Respiratory: Lungs have equal breath sounds bilaterally, clear to auscultation and percussion. No rales, rhonchi or wheezes noted. No increased work of breathing, no retractions or nasal flaring. Abdomen/GI: Soft, non-tender, with normal bowel sounds. No distension or tympany. No guarding or rebound. No evidence of tenderness throughout. Skin: Warm, dry with normal turgor. Normal color with no rashes, no lesions, and no evidence of cellulitis. MS/ Extremity: Pulses equal, no cyanosis. Neurovascular intact. Full, normal range of motion. Neuro: Awake and alert, GCS 15, oriented to person, place, time, and situation. Cranial nerves II-XII grossly intact. Motor strength 5/5 in all extremities. Sensory grossly intact. Cerebellar exam normal. Normal gait. Psych: Awake, alert, with orientation to person, place and time. Behavior, mood, and affect are within normal limits. 18:24 Back: pain, that is mild, of the lumbar area, ROM is painful, with all movement, normal spinal alignment noted, CVA tenderness, is absent, vertebral tenderness, is appreciated at T12, L1, L2, L3 and L4. Vital Signs: 15:47 BP 134 / 78; Pulse 76; Resp 18; Temp 97.8; Pulse Ox 96% on R/A; Weight 79.38 kg; Height aj 5 ft. 3 in. (160.02 cm); 18:54 BP 125 / 65; Pulse 68; Resp 18; Pulse Ox 100% on 2 lpm NC; tl3 21:30 BP 136 / 102; Pulse 68; Resp 18; Temp 97.7(O); Pulse Ox 97% on R/A; tl3 23:16 BP 166 / 89; Pulse 64; Resp 18; Pulse Ox 99% on R/A; tl3 15:47 Body Mass Index 31.00 (79.38 kg, 160.02 cm) aj MDM: 18:24 Data reviewed: vital signs, nurses notes. kdr 19:53 Patient medically screened. christ 04/07 16:31 Order name: Basic Metabolic Panel kdr 04/07 16:31 Order name: BNP kdr 04/07 16:31 Order name: CBC with Diff kdr 04/07 16:31 Order name: Ckmb; Complete Time: 20:05 [facility] 04/07 16:31 Order name: CPK; Complete Time: 20:05 [facility] 04/07 16:31 Order name: LFT's; Complete Time: 20:05 [facility] 04/07 16:31 Order name: Magnesium; Complete Time: 20:05 kdr 04/07 16:31 Order name: PT-INR; Complete Time: 20:05 [facility] 04/07 16:31 Order name: Ptt, Activated; Complete Time: 20:05 [facility] 04/07 16:31 Order name: Troponin (emerg Dept Use Only); Complete Time: 20:05 kdr 04/07 16:31 Order name: Basic Metabolic Panel; Complete Time: 20:05 EDMS 04/07 16:31 Order name: BNP B-Type Natriuretic Peptide; Complete Time: 20:05 EDMS 04/07 16:31 Order name: CBC with Automated Diff; Complete Time: 20:05 EDMS 04/07 16:54 Order name: Urine Dipstick--Ancillary (enter results); Complete Time: 18:07 em1 04/07 16:31 Order name: XRAY Chest (1 view); Complete Time: 18:07 kdr 04/07 16:31 Order name: EKG; Complete Time: 16:31 kdr 04/07 16:31 Order name: Cardiac monitoring; Complete Time: 17:54 kdr 04/07 16:31 Order name: EKG - Nurse/Tech; Complete Time: 19:13 kdr 04/07 16:45 Order name: CT Head Brain wo Cont; Complete Time: 18:07 kdr 04/07 20:08 Order name: CT Abd/Pelvis - W/Contrast: no oral christ 04/07 20:21 Order name: Echo with Doppler EDMS 04/07 20:21 Order name: Carotid Artery Bilateral; Complete Time: 12:11 EDMS 04/07 21:08 Order name: CT; Complete Time: 12:11 EDMS 04/07 23:18 Order name: Amylase Level; Complete Time: 12:11 EDMS 04/07 23:18 Order name: Lipase; Complete Time: 12:11 EDMS 04/07 16:31 Order name: IV Saline Lock; Complete Time: 17:54 kdr 04/07 16:31 Order name: Labs collected and sent; Complete Time: 19:13 kdr 04/07 16:31 Order name: O2 Per Protocol; Complete Time: 17:54 kdr 04/07 16:31 Order name: O2 Sat Monitoring; Complete Time: 17:54 kdr 04/07 16:31 Order name: Urine Dipstick-Ancillary (obtain specimen); Complete Time: 16:53 kdr 04/07 16:45 Order name: Orthostatic Blood Pressure; Complete Time: 14:27 kdr Administered Medications: 20:45 Drug: morphine 4 mg Route: IVP; Site: left antecubital; bb 21:16 Follow up: Response: No adverse reaction; Pain is decreased tl3 20:45 Drug: Zofran 4 mg Route: IVP; Site: left antecubital; bb 21:16 Follow up: Response: No adverse reaction; Nausea is decreased tl3 20:46 Not Given (Other Intervention Used): Pepcid 20 mg IVP once bb 20:46 Drug: Solu-CORTEF 100 mg Route: IVP; Site: left antecubital; bb 04/08 14:27 Follow up: Response: No adverse reaction tl3 04/07 21:36 Drug: ProTONIX 40 mg Route: IVP; Infused Over: 3 mins; Site: left antecubital; tl3 22:14 Follow up: Response: No adverse reaction tl3 Point of Care Testing: Blood Glucose: 23:20 Blood Glucose: 101 mg/dL; tl3 Ranges: Critical Glucose Levels:Adult <50 mg/dl or >400 mg/dl <40 mg/dl or >180 mg/dl Disposition: 04/07/18 20:14 Hospitalization ordered by Alicia Esquivel for Observation. Preliminary diagnosis are Syncope and collapse, Weakness, Abdominal tenderness. - Bed requested for Telemetry/MedSurg (observation). - Status is Observation. tl3 - Condition is Fair. - Problem is new. - Symptoms have improved. UTI on Admission? No Signatures: Dispatcher [employer] EDNasreen Chadwick RN RN kl Myers, Amanda, RN RN aj Anderson, Corey, MD MD cha Rittger, Kevin, MD MD kdr Ballard, Brenda, RN RN bb Lowrey, Tammy, RN RN tl3 Corrections: (The following items were deleted from the chart) 21:30 15:47 Home Meds: amitriptyline 100 mg Oral tab 1 tab once daily; [facility] 21:30 15:47 Home Meds: cyclobenzaprine 10 mg Oral tab as needed; [facility] 21:30 15:47 Home Meds: duloxetine 60 mg Oral cpDR 1 cap twice a day; [facility] 21:30 15:47 Home Meds: fludrocortisone 0.1 mg Oral tab 1 tab once daily; [facility] 21:30 15:47 Home Meds: hydrocortisone 10 mg Oral tab 1 tab Noon; 2 tabs in the morning; [facility] 21:30 15:47 Home Meds: Omeprazole Oral once daily; [facility] 22:43 20:14 Hospitalization Ordered by Alicia Esquivel MD for Observation. Preliminary kl diagnosis is Syncope and collapse; Weakness; Abdominal tenderness. Bed requested for Telemetry/MedSurg (observation). Status is Observation. Condition is Fair. Problem is new. Symptoms have improved. UTI on Admission? No. christ 04/08 00:16 04/07 22:43 04/07/2018 20:14 Hospitalization Ordered by Alicia Esquivel MD for tl3 Observation. Preliminary diagnosis is Syncope and collapse; Weakness; Abdominal tenderness. Bed requested for Telemetry/MedSurg (observation). Status is Observation. Condition is Fair. Problem is new. Symptoms have improved. UTI on Admission? No. kl
[2018-04-07] MEDS ORDERED: HYDROCORTISONE SUC 100 MG INJ ONE (20:31)
[2018-04-07] MEDS ORDERED: Morphine 2 MG/2 ML SYR ONE (20:33)
[2018-04-07] MEDS ORDERED: WATER FOR INJ,STERILE 10 ML ONE (20:35)
--- NOTE | 2018-04-07 21:08 | RAD REPORT ---
EXAM DESCRIPTION: CT - Abdomen Pelvis W Contrast - 04/07/2018 8:54 pm CLINICAL HISTORY: Abdominal pain. Right upper quadrant pain COMPARISON: December 2016 TECHNIQUE: Computed axial tomography of the abdomen and pelvis was obtained. 100 cc Isovue-300 is ad ministered intravenously. Oral contrast was given. All CT scans are performed using dose optimization technique as appropriate and may include automated exposure control or mA/KV adjustment according to patient size. FINDINGS: The gallbladder has been removed. Chronic pneumobilia is unchanged. Prominence of the biliary tree is stable Otherwise the liver is unremarkable. The spleen, adrenals and left kidney are unremarkable. 18 millimeter right renal calculus is present. There is no hydronephrosis. Minimal stranding is present adjacent to pancreatic head. There is no evidence of diverticulitis. A moderate amount of stool is present within the transverse a nd right colon. A hysterectomy has been performed IMPRESSION: Minimal stranding adjacent to the pancreatic head may indicate a minimal pancreatitis Moderate amount of stool within the transverse and right colon Nonobstructing right renal calculus
[2018-04-07] MEDS ORDERED: PANTOPRAZOLE 40 MG INJ ONE (21:33)
--- NOTE | 2018-04-07 22:40 | RAD REPORT ---
EXAM DESCRIPTION: VASCarotid Artery Bilateral04/07/2018 9:19 pm CLINICAL HISTORY: Syncope COMPARISON: None FINDINGS: The velocity of the right internal carotid artery equals 117 cm/sec. The right ICA/CCA rat io 2.4. The velocity of the left internal carotid artery equals 91 cm/sec. The left ICA/CCA ratio 1.1 Mild plaque is present within the carotid arteries. The vertebral arteries demonstrate antegrade flow IMPRESSION: Mild plaque within the carotid arteries without evidence of a hemodynamically significan t stenosis
--- NOTE | 2018-04-07 22:46 | P.HP ---
Certification for Inpatient Patient admitted to: Observation With expected LOS: <2 Midnights Practitioner: I am a practitioner with admitting privileges, knowledge of patient current condition, hospital course, and medical plan of care. Services: Services provided to patient in accordance with Admission requirements found in Title 42 Section 412.3 of the Code of Federal Regulations Patient History Date of Service: 04/07/18 Reason for admission: syncope History of Present Illness: Ms Cerna is a 62 years old woman with multiple medical problems including addisons disease, IBS, TIA, who complaint of weakness and RUQ pain for the last week. For that reason, she went to see her PCP today. While she was in her PCP office, had a syncopal episode. Once she recover, was transfer to the hospital and was told that she needs to be admitted. No history of fever or chills. She states that has had nausea but is not new, but denied vomiting or diarrhea. The patient said that before past out, she start feeling lightheadedness. Denied any chest pain, SOB or palpitations prior syncope. In ED she is in non-distress , BP WNL, WBC normal, no fever. Allergies Penicillins Allergy (Verified 02/28/18 10:52) Anaphylaxis Sulfa (Sulfonamide Antibiotics) [Sulfa(Sulfonamide Antibiotics)] Allergy ( Verified 02/28/18 10:52) Anaphylaxis NSAIDS Adverse Reaction (Uncoded 02/28/18 10:52) Nausea/Vomiting Home Medications: Amitriptyline HCl 100 mg PO DAILY 09/07/16 Aspirin [Aspir-Low] 81 mg PO DAILY 09/07/16 Duloxetine HCl 60 mg PO BID 09/07/16 Estradiol 2 mg PO DAILY 09/07/16 Fludrocortisone [Florinef *] 0.1 mg PO DAILY 09/07/16 Liothyronine Sodium [Cytomel] 5 mcg PO DAILY 09/07/16 Clonazepam 2 mg PO BID 02/28/18 Cyclobenzaprine [Flexeril*] 10 mg PO PRN 02/28/18 Hydrocortisone [Cortef*] 10 mg PO NOON 02/28/18 Melatonin 10 mg PO BEDTIME 02/28/18 Omeprazole 10 mg PO DAILY 02/28/18 Oxycodone HCl 10 mg PO TID 02/28/18 Polyethylene Glycol 3350 [Clearlax] 17 gm PO PRN 02/28/18 Promethazine HCl 25 mg PO Q6HR 02/28/18 Rosuvastatin [Crestor*] 10 mg PO DAILY 02/28/18 Trazodone [Desyrel*] 50 mg PO DAILY 02/28/18 Valerian Root Extract [Valerian] 150 mg PO BEDTIME 02/28/18 Zaleplon 10 mg PO DAILY 02/28/18 Benzonatate [Tessalon Perle] 100 mg PO TID PRN #15 cap 03/01/18 Levofloxacin [Levaquin*] 500 mg PO DAILY #7 tab 03/01/18 - Past Medical/Surgical History Diabetic: No -: Addisons -: Irritable Bowel Syndrome -: TIA -: Cholecystectomy -: Appy -: -: Hysterectomy - Family History Family History: Reviewed- Non-Contributory - Social History Smoking Status: Never smoker Alcohol use: No CD- Drugs: No Caffeine use: No Place of Residence: Home Review of Systems 10-point ROS is otherwise unremarkable Physical Examination - Physical Exam General: Alert, In no apparent distress HEENT: Atraumatic, PERRLA, Mucous membr. moist/pink, EOMI, Sclerae nonicteric Neck: Supple, 2+ carotid pulse no bruit, No LAD, Without JVD or thyroid abnormality Respiratory: Clear to auscultation bilaterally, Normal air movement Cardiovascular: Regular rate/rhythm, Normal S1 S2 Gastrointestinal: Normal bowel sounds, Tenderness (diffuse with palpation.) Musculoskeletal: No tenderness Integumentary: No rashes Neurological: Normal speech, Normal strength at 5/5 x4 extr, Normal tone, Normal affect Lymphatics: No axilla or inguinal lymphadenopathy - Studies Laboratory Data (last 24 hrs) 04/07/18 19:10: PT 11.9, INR 1.01, APTT 29.3 04/07/18 19:10: WBC 7.0, Hgb 10.7 L, Hct 32.6 L, Plt Count 285 04/07/18 19:10: B-Natriuretic Peptide 38 04/07/18 19:10: Sodium 138, Potassium 4.0, BUN 9, Creatinine 0.77, Glucose 101, Magnesium 1.8, Total Bilirubin 0.3, AST 23, ALT 22, Alkaline Phosphatase 102 Assessment and Plan - Problems (Diagnosis) (1) Syncope Current Visit: Yes Status: Acute Qualifiers: Syncope type: unspecified Qualified Code(s): R55 - Syncope and collapse (2) [place] disease Onset Date: 09/08/16 Current Visit: No Status: Chronic (3) Irritable bowel disease Current Visit: No Status: Chronic Qualifiers: Irritable bowel syndrome type: unspecified Qualified Code(s): K58.9 - Irritable bowel syndrome without diarrhea - Plan Ms Cerna will be admitted to the hospital under observation due to syncopal episode. CT head unremarkable. EKG normal SR without ST-T abnormalities. She had also a CT abd/pelvis due to abdominal beebe and shows some stranding around pancreatic head suggesting pancreatitis. No lipase or amylase done, will order them now. Check orthostatic vital signs. - Advance Directives Does patient have a Living Will: Yes Does patient have a Durable POA for Healthcare: No - Code Status/Comfort Care Code Status Assessed: Yes Code Status: Full Code
[2018-04-07 23:18] LABS: Amylase Level 30 U/L (28-100); Lipase 17 U/L (22-51)
[2018-04-08 00:30] VITALS: BMI 30.4
[2018-04-08] MEDS: TRAMADOL HCL 50 MG TAB PO PRN ×4 (01:51→21:28)
[2018-04-08] MEDS: NA CHLORIDE 0.9% 1,000 ML IV SCH ×3 (01:51→20:30)
[2018-04-08 05:26] LABS: Absolute Monocytes 0.3 K/uL (0.1-1.3); Absolute Neutrophil 8.3 K/uL (1.8-8.0); Basophils % 0.4 % (0-1.3); Eosinophils % 0.1 % (0-4.4); Hematocrit 32.5 % (36.0-45.0); Lymphocytes % 10.4 % (15.3-44.8); MCH 28.3 pg (27.0-35.0); MCV 85.9 fL (80-100); MPV 8.8 fL (7.6-11.3); Monocytes % 2.8 % (3.3-12.3); RBC Red Blood Cell Count 3.79 M/uL (3.86-4.86)
[2018-04-08 05:54] LABS: Potassium 3.9 mEq/L (3.6-5.0)
[2018-04-08] MEDS ORDERED: POTASSIUM CL SA 10 MEQ TAB PO ONE (07:00)
[2018-04-08 07:23] LABS: Blood Morphology Comment NOT SEEN (NOT SEEN); Platelet Estimate ADEQ; Platelets, Giant FEW
[2018-04-08] MEDS ORDERED: HOME MED 1 EA UNK (Duloxetine Hcl [Duloxetine Hcl] 60 MG) PO SCH (09:00)
[2018-04-08] MEDS: FLUDROCORTISONE 0.1 MG TAB PO SCH (09:00)
[2018-04-08] MEDS ORDERED: LIOTHYRONINE SOD 5 MCG TAB PO SCH (09:00)
[2018-04-08] MEDS ORDERED: MELATONIN 5 MG TABLET PO PRN (09:15)
[2018-04-08] MEDS: ENOXAPARIN 40 MG/0.4 ML SQ SCH (10:52)
[2018-04-08] MEDS: DULOXETINE 30 MG CAP PO SCH (10:52)
[2018-04-08] MEDS: POLYETHYL GLY 3350 17 GM/DOSE PO SCH (10:52)
[2018-04-08] MEDS: ASPIRIN EC 81 MG TAB PO SCH (10:52)
[2018-04-08] MEDS: HYDROCORTISONE 10 MG TAB PO SCH ×2 (11:27)
[2018-04-08] MEDS: ONDANSETRON 4 MG/2 ML VIAL IV PRN ×2 (12:22→17:55)
--- NOTE | 2018-04-08 12:37 | ECHO ---
HEIGHT: 5 ft 3 in WEIGHT: 171 lb 14.4 oz DATE OF STUDY: 04/08/[address]: Fletcher Pruitt MD 2-DIMENSIONAL: YES M.MODE: YES DOPPLER: YES COLOR FLOW: YES TDS: NO PORTABLE: NO DEFINITY: NO BUBBLE STUDY: NO DIAGNOSIS: SYNCOPE CARDIAC HISTORY: CATHERIZATION: NO SURGERY: NO PROSTHETIC VALVE: NO PACEMAKER: NO MEASUREMENTS (cm) DIASTOLIC (NORMALS) SYSTOLIC (NORMALS) IVSd 1.0 (0.6-1.2) LA Diam 3.8 (1.9-4.0) LVEF 66% LVIDd 3.8 (3.5-5.7) LVIDs 2.5 (2.0-3.5) %FS 36% LVPWd 1.0 (0.6-1.2) Ao Diam 2.6 (2.0-3.7) 2 DIMENSIONAL ASSESSMENT: RIGHT ATRIUM: NORMAL LEFT ATRIUM: NORMAL RIGHT VENTRICLE: NORMAL LEFT VENTRICLE: NORMAL TRICUSPID VALVE: NORMAL MITRAL VALVE: NORMAL PULMONIC VALVE: NORMAL AORTIC VALVE: NORMAL PERICARDIAL EFFUSION: NONE AORTIC ROOT: NORMAL LEFT VENTRICULAR WALL MOTION: NORMAL. DOPPLER/COLOR FLOW: MILD TRICUSPID REGURGITATION AND MITRAL REGURGITATION. MILD PULMONARY HYPERTENSION. ESTIMATED RIGHT VENTRICULAR SYSTOLIC PRESSURE 40mmHg. COMMENTS: NORMAL 2D ECHO. MILD MITRAL AND TRICUSPID REGURGITATION. MILD PULMONARY HYPERTENSION. TECHNOLOGIST: MEGHNA CRUZ
--- NOTE | 2018-04-08 14:32 | PN ---
Date of Progress Note: 04/08/2018 Subjective: The patient is seen and examined. Chart reviewed and case discussed with RN. The patie nt states she feels better. Has not had any further syncopal episodes. Review of Systems: Negative except as above. Medications: Reviewed. Physical Examination: Vital Signs: Temperature 98.3, heart rate 59, blood pressure 140/67, respirations 16, O2 96% on room air. General: Awake, alert, oriented x3. Elderly female, obese, BMI 30. CV: S1, S2. No murmurs. Peripheral pulses present. Regular rate and rhythm. Respiratory: Clear to auscultation bilaterally. No wheezing. No stridor. No use of accessory musc les. Gastrointestinal: Abdomen is soft, nontender, nondistended. Positive bowel sounds. Extremities: No clubbing, cyanosis, or edema. Neuro: Nonfocal. Laboratory Data: Sodium 137, potassium 3.9, chloride 99, CO2 30, BUN 10, creatinine 0.74, glucose 15 6, and calcium 9.2. WBC 9.6, H and H 10.7 and 32.5, platelets 274, neutrophils 86%. Echocardiogram shows EF of 66%, mild pulmonary hypertension, right ventricular systolic pressure is 40, mild tricusp id and mitral regurg. Assessment And Plan: A 62-year-old female with: 1.Syncopal episode, may be neurogenic versus cardiogenic in nature. We will obtain orthostatic wanda l signs. Consult Neurology. No arrhythmias noted on telemetry. Echocardiogram is normal. 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 We will resume home medications. 3.Irritable bowel syndrome without diarrhea. 4.Mild pulmonary hypertension. 5.Chronic pain syndrome. The patient is on multiple sedated medications, which have been held. The patient takes promethazine every 6 hours as needed, is on Flexeril 10 mg as needed, trazodone at bed time, takes 2 mg of clonazepam twice a day, is on 10 mg 3 times a day of oxycodone and takes Zaleplon 10 mg at bedtime for sleep. All the sedative medications have been held to see if there is any impr ovement in her condition. The patient has been counseled. She needs to have her medications re-eval uated. At this time, we will discontinue benzos and sleep aids at night. Use of Flexeril only as ne eded. The patient to go back to PCP or chronic pain specialist for adjustment in her narcotics, whic h are high dose. The patient at risk for overdose. /[email or web address] Voice ID: [id number] Report ID: [id number]
[2018-04-08] MEDS ORDERED: ESTRADIOL 2 MG PO SCH (21:00)
[2018-04-08] MEDS ORDERED: ROSUVASTATIN 10 MG TAB PO SCH (21:00)
[2018-04-08] MEDS ORDERED: AMITRIPTYLINE 50 MG TAB PO SCH (21:00)
[2018-04-09] MEDS: ACETAMINOPHEN 500 MG TAB PO PRN ×2 (00:27→14:22)
[2018-04-09 01:32] VITALS: O2SAT 95
[2018-04-09 05:28] LABS: Potassium 3.6 mEq/L (3.6-5.0)
[2018-04-09 05:36] VITALS: TEMP 98.2
[2018-04-09] MEDS: NA CHLORIDE 0.9% 1,000 ML IV SCH ×2 (05:42→15:16)
[2018-04-09] MEDS ORDERED: LIOTHYRONINE SOD 5 MCG TAB PO SCH (06:30)
[2018-04-09] MEDS ORDERED: PANTOPRAZOLE 40MG TABLET PO SCH (06:30)
[2018-04-09] MEDS ORDERED: POTASSIUM CL SA 10 MEQ TAB PO ONE (07:30)
[2018-04-09 08:55] VITALS: BP 156/76
[2018-04-09] MEDS: DULOXETINE 30 MG CAP PO SCH (09:01)
[2018-04-09] MEDS: FLUDROCORTISONE 0.1 MG TAB PO SCH (09:01)
[2018-04-09] MEDS: HYDROCORTISONE 10 MG TAB PO SCH ×2 (09:02→13:14)
[2018-04-09] MEDS: ENOXAPARIN 40 MG/0.4 ML SQ SCH (09:02)
[2018-04-09] MEDS: ASPIRIN EC 81 MG TAB PO SCH (09:02)
[2018-04-09] MEDS: TRAMADOL HCL 50 MG TAB PO PRN (09:02)
[2018-04-09] MEDS: POLYETHYL GLY 3350 17 GM/DOSE PO SCH (09:02)
--- NOTE | 2018-04-09 15:37 | DS ---
Date of Discharge: 04/09/2018 Consultants: Dr. Gallo, Neurology. Admitting Diagnoses: 1.Syncopal episode. 2.Bruce's disease. 3.Irritable bowel disease. Discharge Diagnoses: 1.Syncopal episode, likely related to sedative medication side effect. 2.Bruce's disease, stable. 3.Irritable bowel syndrome without diarrhea. 4.Mild pulmonary hypertension. 5.Chronic pain syndrome on multiple sedative medications, medications adjusted. 6.Obesity, body mass index 30. Hospital Course: The patient is a 62-year-old female, who came in with syncopal episode at her PCP's office. She was sent to the hospital for further workup and evaluation. CT scan of the head was do ne, which was negative for any acute changes. Did show some mild atrophy and moderate chronic ischem ic change present and similar to comparison. CT abdomen and pelvis was done, which did not show any acute changes, showed some mild stranding adjacent to the pancreatic head, may indicate a minimal beebe creatitis. Nonobstructing right renal calculus. The patient had no abdominal pain or symptoms consi stent with pancreatitis. The patient otherwise did well. Echocardiogram was done, which showed EF o f 66%, did show mild pulmonary hypertension and mild tricuspid and mitral regurg. The patient did no t have any further syncopal episode. This was thought to be due to her sedative medications, the valencia ority of which were held. The patient is on promethazine, Flexeril, trazodone, clonazepam, oxycodone , zaleplon, which were all held due to the patient's somnolence. Orthostatic vital signs were also o btained. The patient was then seen by Neurology, Dr. Gallo. EEG was done. The patient was then cleared for discharge and was sent home in a stable condition. Activity: Fall precautions. Medications: As per medication reconciliation list. The patient was informed that she is on multipl e sedative medications, which needs to be adjusted. For now, we will hold her sedative medications. The patient needs to go back to her PCP and have her doses reduced or completely stopped. The patie nt is at risk for possible overdose. Explained the risks to the patient. She voiced understanding. Willing to speak to her primary doctor. Understand that she needs to stop these medications for now . Physical Examination: General: Awake, alert, oriented, no acute distress CV: S1, S2. No murmurs. Respiratory: Moving air well bilaterally. No wheezing. Gastrointestinal: Abdomen is soft, nontender, nondistended. Positive bowel sounds. Extremities: No clubbing, cyanosis, or edema. Neurologic: Nonfocal. Diet: Heart healthy. Followup: 1.Follow up with primary care physician in 2-3 days. 2.Follow up with neurologist, Dr. Gallo in 1 week. Return to ER for worsening condition. /RUPALI Voice ID: [id number] Report ID: [id number]
--- NOTE | 2018-04-12 08:59 | CON ---
Reason For Consultation: Consultation called because of syncope. History Of Present Illness: Ms. Cerna is a 62-year-old patient, whom I have seen in clinic for mild cognitive impairment 1 month previously and who was admitted with syncope. The patient has had multiple near syncopal episodes, which typically occur after she gets up and ambulates for a short distance. The event that precipitated this admission occurred in Dr. Israel's office on the 07 of April. While in the office, she apparently got up, walk a few steps and collapsed to the floor. The patient reports that she was out only for a few seconds and then came back to awareness. She was sent over to [facility] for further evaluation. During the event, she did not have tonic or clonic activity, tongue biting, or loss of urine control. She did not have head deviation to one side or the other. Then only remained unresponsive for short period, perhaps several seconds. She was sent [facility] as indicated in emergency room, head CT scan was negative for any acute ischemic or hemorrhagic change. She was seen in my office a few weeks earlier and had already brain MRI which showed small vessel ischemic disease with moderate brain atrophy with no focal abnormalities. She did have a carotid artery ultrasound, which showed no evidence of hemodynamically significant stenosis, but mild plaque in the carotid arteries. She also had an echocardiogram, which showed an ejection fraction of 66%, essentially an unremarkable study. Blood work was not remarkable. Her complete blood count with differential showed a mild anemia of 10.7, and otherwise essentially unremarkable. She had a mildly elevated neutrophil count with normal white blood cell count. Coagulation panel is normal. Chemistries essentially unremarkable except for mildly low chloride of 97, slightly elevated carbon dioxide of 33. She did have repeat blood work which did show that there was some fluid. Her calcium which was normal at 9.5 at admission, it was earlier today 8.2. Liver function studies were normal. Urinalysis unremarkable. Since hospitalization, she has not had additional syncopal episodes. She did have an EEG done earlier. The study is not complete yet and the evaluation initial review shows the study to be normal. Past Medical History: Irritable bowel syndrome, [place] disease, transient ischemic attacks, and syncopal episode. Past Surgical History: Hysterectomy, appendectomy, cholecystectomy, . Allergies: PENICILLIN AND SULFA DRUGS. Medications: At home, aspirin 81 mg daily, clonazepam 2 mg one tablet twice daily as needed, estradiol 2 mg daily, melatonin 10 mg at bedtime, liothyronine 5 mcg daily, oxycodone 10 mg 3 times a day, promethazine 25 mg every 6 hours as needed, trazodone 50 mg at night, valerian root nightly, zaleplon 5 mg two tablets once daily, amitriptyline 100 mg daily, cyclobenzaprine 10 mg twice daily, duloxetine 90 mg daily, fludrocortisone 0.1 mg daily, hydrocortisone 10 mg two tablets in the morning and one in the 2 p.m., omeprazole 40 mg daily. Family History: Noncontributory. Review of Systems: She denies any recent fevers, chills, nausea, vomiting, weight loss, weight gain , myalgias, arthralgias, headache, weight change, rash. No cardiovascular issues. No pulmonary issues. No genitourinary issues. No gastrointestinal issues. No dermatological issues. Otherwise negative on a 10-point systems review. Physical Examination: Vital Signs: Blood pressure 156/76, pulse 71, respiratory rate 18, temperature 98.2, oxygen saturation 95% room air, weight 171 pounds, height 5 feet 3 inches , BMI 30.5. General: Ms. Cerna is resting comfortably in bed. She is in no acute distress. HEENT: She is normocephalic and atraumatic. Sclerae anicteric. Oropharynx is pink and moist. Neck: Supple. Chest: Clear. Heart: Regular. Extremities: Show no edema, cyanosis or clubbing. Neurologic: She is alert and oriented to person, place, and situation. She has no expressive or receptive aphasias. Cranial nerves 2 thorough 12 are intact by exam. Motor examination in the arms and legs, 5/5 strength proximally and distally with normal tone and bulk. Reflexes 1+ upper and lower extremities symmetrically. Sensation intact to light touch temperature in arms and legs. Coordination intact in upper and lower extremities. Gait good stance , right arm swing. Assessment: Ms. Cerna is a 62-year-old patient with multiple syncopal episodes of unclear etiology. She has no focal neurologic deficits. Her head CT scan is unremarkable except for small-vessel disease. Her cardiovascular workup has been negative. Plan: After discharge the patient should have prolonged monitoring by ambulatory video EEG evaluation to rule out the possibility of an epileptic reason for her events. She may be discharged home and maintain a diary of events. No other neurological workup is required prior to discharge. DIANE Voice ID: [id number] Report ID: [id number] JOHN
== END 2018-04-09 15:52 | disposition home or self-care (01) ==
LOC: ER 15:03 → ERHOLD 20:18 → 2ND 22:51
PROVIDERS: ADMIT Internal Medicine; ATTEND Internal Medicine
DX: R55 Syncope and collapse (principal); E27.1 Primary adrenocortical insufficiency; K58.9 Irritable bowel syndrome, unspecified; I27.20 Pulmonary hypertension, unspecified; G89.4 Chronic pain syndrome; E66.9 Obesity, unspecified; Z68.30 Body mass index [BMI] 30.0-30.9, adult; Z88.0 Allergy status to penicillin; Z88.2 Allergy status to sulfonamides; Z86.73 Personal history of transient ischemic attack (TIA), and cerebral infarction without residual deficits
CPT/HCPCS: 36415 ×2; 70450; 71045; 74177; 80048 ×3; 80076; 81003; 82150; 82550; 82553; 83690; 83735; 83880; 84484; 85025 ×2; 85610; 85730; 93005; 93306; 93880; 96374; 96375; 99285; C9113; G0378 ×2; J1650 ×2; J1720; J2270; J2405 ×4; J7030 ×4; Q9966

== ENCOUNTER 2018-08-28 11:04 | Emergency (ER) | payer OTHER ==
[2018-08-28] MEDS ORDERED: ONDANSETRON 4 MG/2 ML VIAL ONE (13:13)
[2018-08-28 14:23] LABS: Absolute Lymphocytes (CBC) 1.3 K/uL (0.7-4.9); Absolute Monocytes 0.4 K/uL (0.1-1.3); Absolute Neutrophil 9.7 K/uL (1.8-8.0); Basophils % 0.8 % (0-1.3); Hematocrit 33.7 % (36.0-45.0); Lymphocytes % 10.9 % (15.3-44.8); MCH 28.5 pg (27.0-35.0); MCV 84.4 fL (80-100); MPV 9.2 fL (7.6-11.3)
[2018-08-28 14:54] LABS: Blood Morphology Comment NOT SEEN (NOT SEEN); Platelet Estimate ADEQ; Urine White Blood Cell Casts OK
--- NOTE | 2018-08-28 15:39 | RAD REPORT ---
EXAM DESCRIPTION: CT - Abdomen Pelvis Wo Contrast - 08/28/2018 2:57 pm CLINICAL HISTORY: Abdominal pain vomiting for 1 week COMPARISON: March 2018 TECHNIQUE: Computed axial tomography of the abdomen and pelvis was obtained. IV contrast was not req uested. Oral contrast was given. All CT scans are performed using dose optimization technique as appropriate and may include automated exposure control or mA/KV adjustment according to patient size. FINDINGS: The evaluation of solid organs, and vessels is limited secondary to the lack of contrast administration. The gallbladder has been removed. Chronic pneumobilia is seen. Liver, pancreas, adrenals and left kidney appear grossly normal 20 millimeter nonobstructing right renal calculus is seen. Moderate amount of stool is present within the colon. Right and transverse colon measure up to 7 cent imeters. There is no evidence of diverticulitis. IMPRESSION: Nonobstructing right renal calculus Moderate amount of stool within the colon. Mild dilatation of transverse and right colon
[2018-08-28] MEDS ORDERED: FLEET ENEMA ADULT PR ONE (15:57)
[2018-08-28 16:23] LABS: Albumin 3.5 g/dL (3.4-5.0); Bilirubin Direct 0.1 mg/dL (0-0.2); Bilirubin Total 0.2 mg/dL (0.2-1.0); Potassium 4.4 mmol/L (3.5-5.1); Protein, Total 7.5 g/dL (6.4-8.2)
--- NOTE | 2018-08-28 17:40 | EDPHYS ---
Physician Documentation [facility] Name: Dulce Cerna Age: 62 yrs Sex: Female : 1955 Arrival Date: 08/28/2018 Time: 11:05 Bed 17 Private MD: Brayan Valladares E ED Physician Brad Hernández HPI: 08/28 12:50 This 62 yrs old Female presents to ER via Ambulatory with complaints of jmm Constipation. 12:50 The patient presents with abdominal distention. Onset: The symptoms/episode jmm began/occurred 3 week(s) ago. The symptoms do not radiate. Associated signs and symptoms: Pertinent positives: constipation. Modifying factors: The symptoms are alleviated by nothing, the symptoms are aggravated by. This is a 62 year old female with a history of Mobile's disease that presents to the ED with abdominal distension and constipation for the past 3 weeks. Patient denies pain. States she has taken Miralax and magnesium citrate with no relief. . Historical: - Allergies: 11:23 PENICILLINS; aa5 11:23 Sulfa (Sulfonamide Antibiotics); aa5 - Home Meds: 11:23 amitriptyline 100 mg Oral tab 1 tab once daily [Active]; aspirin 81 mg Oral TbEC 1 tab aa5 once daily [Active]; clear lax [Active]; clonazepam 2 mg Oral tab 1 tab 2 times per day [Active]; cyclobenzaprine 10 mg Oral tab 1 tab 2 times per day [Active]; duloxetine 90mg Oral cpDR 1 cap once daily [Active]; 11:23 estradiol 2 mg Oral tab 1 tab once daily [Active]; fludrocortisone 0.1 mg Oral tab 2 aa5 tabs once daily [Active]; hydrocortisone 10 mg Oral tab 2 tabs take two tablets in the am and one tablet at 2pm [Active]; liothyronine 5 mcg Oral tab 1 tab once daily [Active]; melatonin 10 mg Oral tab daily [Active]; omeprazole 40 mg Oral cpDR 1 cap once daily [Active]; oxycodone 10 mg Oral tab 1 tab three times a day [Active]; promethazine 25 mg Oral tab 1 tab every 6 hours [Active]; rosuvastatin 10 mg Oral tab 1 tab once daily [Active]; trazodone 50 mg Oral tab 1 tab daily [Active]; valerian root Oral nightly [Active]; zaleplon 5 mg Oral cap 2 caps once daily [Active]; - 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 - Social history:: Smoking status: Patient/guardian denies using tobacco. - Ebola Screening: : No symptoms or risks identified at this time. ROS: 12:50 Constitutional: Negative for fever, chills, and weight loss, Cardiovascular: Negative jmm for chest pain, palpitations, and edema, Respiratory: Negative for shortness of breath, cough, wheezing, and pleuritic chest pain. 12:50 Back: Negative for injury and pain, : Negative for injury, bleeding, discharge, and swelling, MS/Extremity: Negative for injury and deformity, Skin: Negative for injury, rash, and discoloration, Neuro: Negative for headache, weakness, numbness, tingling, and seizure, Psych: Negative for depression, anxiety, suicide ideation, homicidal ideation, and hallucinations. 12:50 Abdomen/GI: Positive for constipation. 12:50 All other systems are negative. Exam: 12:50 Head/Face: atraumatic. Chest/axilla: Normal chest wall appearance and motion. jmm Cardiovascular: Regular rate and rhythm. No edema appreciated Respiratory: Normal respirations, no respiratory distress appreciated 12:50 Constitutional: The patient appears in no acute distress, alert, awake. 12:50 Abdomen/GI: Inspection: distension, that is moderate, Palpation: abdomen is soft and non-tender, in all quadrants. 12:50 Skin: Appearance: Color: normal in color. 12:50 Neuro: Orientation: is normal, Mentation: is normal, Memory: is normal. 12:50 Psych: Behavior/mood is pleasant, cooperative. Vital Signs: 11:22 BP 125 / 64; Pulse 86; Resp 18 S; Temp 98.3(TE); Pulse Ox 96% on R/A; Weight 79.83 kg aa5 (R); Height 5 ft. 2 in. (157.48 cm) (R); Pain 9/10; 13:10 BP 122 / 77; Pulse 77; Resp 18; Pulse Ox 100% on R/A; Pain 9/10; em 14:30 BP 128 / 84; Pulse 77; Resp 18; Pulse Ox 100% on R/A; em 15:20 BP 118 / 57; Pulse 76; Resp 16; Pulse Ox 98% on R/A; em 16:30 BP 118 / 67; Pulse 73; Resp 15; Pulse Ox 99% on R/A; Pain 9/10; em 17:28 BP 131 / 80; Pulse 80; Resp 18; Temp 97.8(O); Pulse Ox 99% on R/A; Pain 7/10; em 11:22 Body Mass Index 32.19 (79.83 kg, 157.48 cm) aa5 MDM: 12:44 Patient medically screened. [facility] 17:38 Data reviewed: vital signs, nurses notes. Counseling: I had a detailed discussion with [facility] the patient and/or guardian regarding: the historical points, exam findings, and any diagnostic results supporting the discharge/admit diagnosis, radiology results, the need for outpatient follow up, to return to the emergency department if symptoms worsen or persist or if there are any questions or concerns that arise at home. 17:38 Data reviewed: lab test result(s), radiologic studies, CT scan. [facility] 17:38 ED course: The patient had a large bowel movement in the ED. Patient states feeling [facility] much better. Patient is advised to follow up with GI for further evaluation. Patient otherwise given strict return precautions. Labs/CT imaging reveal no acute findings. . 08/28 12:45 Order name: Basic Metabolic Panel; Complete Time: 16:29 [facility] 08/28 12:45 Order name: CBC with Diff; Complete Time: 15:44 [facility] 08/28 12:45 Order name: Creatinine for Radiology; Complete Time: 16:29 [facility] 08/28 12:45 Order name: Hepatic Function; Complete Time: 16:29 [facility] 08/28 12:45 Order name: Lipase; Complete Time: 16:29 [facility] 08/28 14:32 Order name: CBC Smear Scan; Complete Time: 15:44 [facility] 08/28 12:45 Order name: IV Saline Lock; Complete Time: 15:24 [facility] 08/28 12:45 Order name: Labs collected and sent; Complete Time: 14:35 [facility] 08/28 14:42 Order name: Abdomen ; Complete Time: 15:44 [facility] 08/28 14:43 Order name: Labs - recollect needed; Complete Time: 15:24 Administered Medications: 15:27 Drug: Zofran 4 mg Route: PO; hb 16:22 Follow up: Response: No adverse reaction; Nausea is decreased em 16:03 Drug: Fleet Enema 133 ml Route: AR; em 16:15 Follow up: Response: No adverse reaction; No change in condition em 16:20 Drug: Fleet Enema 133 ml Route: AR; em 17:59 Follow up: Response: Marked relief of symptoms em Disposition: 18:52 Co-signature as Attending Physician, Brad Hernández MD. rn Disposition: 08/28/18 17:39 Discharged to Home. Impression: Constipation, unspecified. - Condition is Stable. - Discharge Instructions: Constipation, Adult. - Medication Reconciliation Form, Thank You Letter, Antibiotic Education, Prescription Opioid Use form. - Follow up: Brayan Mitchell MD; When: 2 - 3 days; Reason: Recheck today's complaints, Continuance of care, Re-evaluation by your physician. Signatures: Dispatcher [employer] [facility] Alex Jason PA PA [facility] Enrique Younger, [employer] Brad Boo MD MD rn Calderon, Audri, RN RN aa5 Humaira King RN RN Kayce Hernandez Corrections: (The following items were deleted from the chart) 14:42 12:45 Abdomen Pelvis W Con+CT.RAD.BRZ ordered. [facility] 18:03 17:39 08/28/2018 17:39 Discharged to Home. Impression: Constipation, unspecified. em Condition is Stable. Forms are Medication Reconciliation Form, Thank You Letter, Antibiotic Education, Prescription Opioid Use. Follow up: Brayan Mitchell; When: 2 - 3 days; Reason: Recheck today's complaints, Continuance of care, Re-evaluation by your physician. ozize
--- NOTE | 2018-08-28 17:40 | ER ---
Nurse's Notes [facility] Name: Dulce Cerna Age: 62 yrs Sex: Female : 1955 Arrival Date: 08/28/2018 Time: 11:05 Bed 17 Private MD: Brayan Valladares E Diagnosis: Constipation, unspecified Presentation: 08/28 11:17 Presenting complaint: Patient states: abd pain, nausea, and vomiting x 1 week ago. Pt aa5 states "My last bowel movement was about 2 1/2 weeks ago". Transition of care: patient was not received from another setting of care. Onset of symptoms was July 2018. Risk Assessment: Do you want to hurt yourself or someone else? Patient reports no desire to harm self or others. Initial Sepsis Screen: Does the patient meet any 2 criteria? No. Patient's initial sepsis screen is negative. Does the patient have a suspected source of infection? No. Patient's initial sepsis screen is negative. Care prior to arrival: None. 11:17 Method Of Arrival: Ambulatory aa5 11:17 Acuity: TRACY 3 aa5 Historical: - Allergies: 11:23 PENICILLINS; aa5 11:23 Sulfa (Sulfonamide Antibiotics); aa5 - Home Meds: 11:23 amitriptyline 100 mg Oral tab 1 tab once daily [Active]; aspirin 81 mg Oral TbEC 1 tab aa5 once daily [Active]; clear lax [Active]; clonazepam 2 mg Oral tab 1 tab 2 times per day [Active]; cyclobenzaprine 10 mg Oral tab 1 tab 2 times per day [Active]; duloxetine 90mg Oral cpDR 1 cap once daily [Active]; 11:23 estradiol 2 mg Oral tab 1 tab once daily [Active]; fludrocortisone 0.1 mg Oral tab 2 aa5 tabs once daily [Active]; hydrocortisone 10 mg Oral tab 2 tabs take two tablets in the am and one tablet at 2pm [Active]; liothyronine 5 mcg Oral tab 1 tab once daily [Active]; melatonin 10 mg Oral tab daily [Active]; omeprazole 40 mg Oral cpDR 1 cap once daily [Active]; oxycodone 10 mg Oral tab 1 tab three times a day [Active]; promethazine 25 mg Oral tab 1 tab every 6 hours [Active]; rosuvastatin 10 mg Oral tab 1 tab once daily [Active]; trazodone 50 mg Oral tab 1 tab daily [Active]; valerian root Oral nightly [Active]; zaleplon 5 mg Oral cap 2 caps once daily [Active]; - 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 - Social history:: Smoking status: Patient/guardian denies using tobacco. - Ebola Screening: : No symptoms or risks identified at this time. Screenin:20 Abuse screen: Denies threats or abuse. Nutritional screening: No deficits noted. em Tuberculosis screening: No symptoms or risk factors identified. Fall Risk None identified. Assessment: 13:10 General: Appears in no apparent distress. uncomfortable, Behavior is calm, cooperative. em Pain: Complains of pain in abdomen Pain currently is 9 out of 10 on a pain scale. Pain began 3 weeks ago. Neuro: Level of Consciousness is awake, alert, obeys commands, Oriented to person, place, time, situation. Cardiovascular: Denies chest pain, Capillary refill < 3 seconds Patient's skin is warm and dry. Respiratory: Airway is patent Respiratory effort is even, unlabored, Respiratory pattern is regular, symmetrical, Breath sounds are clear bilaterally. GI: Abdomen is distended, Last BM was August 07, 2018. Bowel sounds present X 4 quads. Abd is rigid X 4 quads. Reports constipation, since 3 weeks. : No signs and/or symptoms were reported regarding the genitourinary system. EENT: No signs and/or symptoms were reported regarding the EENT system. Derm: Skin is intact, Skin is pink, warm \\T\\ dry. Musculoskeletal: Range of motion: intact in all extremities. 13:20 Reassessment: I agree with previous assessment. 14:10 Reassessment: Patient appears in no apparent distress at this time. 2 unsuccessful em ultrasound guided IV attempts, pt has no IV access at this time, provider notified. 14:53 Reassessment: Patient appears in no apparent distress at this time. Patient and/or em family updated on plan of care and expected duration. Pain level reassessed. Patient is alert, oriented x 3, equal unlabored respirations, skin warm/dry/pink. pt has no IV access at this time, provider notified, lab will attempt to recollect labs. 16:04 Reassessment: Patient appears in no apparent distress at this time. Patient and/or em family updated on plan of care and expected duration. Pain level reassessed. Patient is alert, oriented x 3, equal unlabored respirations, skin warm/dry/pink. 16:55 Reassessment: Patient appears in no apparent distress at this time. Patient and/or em family updated on plan of care and expected duration. Pain level reassessed. Patient is alert, oriented x 3, equal unlabored respirations, skin warm/dry/pink. given two fleet enemas, pt on bedside commode, minimal stool noted, provide notified. 17:28 Reassessment: Patient appears in no apparent distress at this time. Patient and/or em family updated on plan of care and expected duration. Pain level reassessed. Patient is alert, oriented x 3, equal unlabored respirations, skin warm/dry/pink. passed some mild stool, provider at bedside. Vital Signs: 11:22 BP 125 / 64; Pulse 86; Resp 18 S; Temp 98.3(TE); Pulse Ox 96% on R/A; Weight 79.83 kg aa5 (R); Height 5 ft. 2 in. (157.48 cm) (R); Pain 9/10; 13:10 BP 122 / 77; Pulse 77; Resp 18; Pulse Ox 100% on R/A; Pain 9/10; em 14:30 BP 128 / 84; Pulse 77; Resp 18; Pulse Ox 100% on R/A; em 15:20 BP 118 / 57; Pulse 76; Resp 16; Pulse Ox 98% on R/A; em 16:30 BP 118 / 67; Pulse 73; Resp 15; Pulse Ox 99% on R/A; Pain 9/10; em 17:28 BP 131 / 80; Pulse 80; Resp 18; Temp 97.8(O); Pulse Ox 99% on R/A; Pain 7/10; em 11:22 Body Mass Index 32.19 (79.83 kg, 157.48 cm) aa5 ED Course: 11:05 Patient arrived in ED. sb2 11:05 Brayan Valladares MD is Private Physician. sb2 11:18 Triage completed. aa5 11:19 Arm band placed on. aa5 12:34 Alex Jason PA is PHCP. [facility] 12:34 Brad Hernández MD is Attending Physician. [facility] 12:46 Enrique Younger LVN is Primary Nurse. em 14:20 Patient has correct armband on for positive identification. Bed in low position. Call em light in reach. Side rails up X2. 14:57 Abdomen In Process Unspecified. EDMS 14:58 CT completed. Patient tolerated procedure well. Patient moved back from CT. bq 15:15 Missed attempt(s): 24 gauge in right hand. Bleeding controlled, band aid applied, dh3 catheter tip intact. 15:23 Initial lab(s) drawn, by me, sent to lab. Inserted saline lock: 24 gauge in right dh3 wrist, using aseptic technique. Blood collected. 17:39 Brayan Mitchell MD is Referral Physician. [facility] 18:01 No provider procedures requiring assistance completed. IV discontinued, intact, em bleeding controlled, No redness/swelling at site. Pressure dressing applied. Administered Medications: 15:27 Drug: Zofran 4 mg Route: PO; hb 16:22 Follow up: Response: No adverse reaction; Nausea is decreased em 16:03 Drug: Fleet Enema 133 ml Route: ND; em 16:15 Follow up: Response: No adverse reaction; No change in condition em 16:20 Drug: Fleet Enema 133 ml Route: ND; em 17:59 Follow up: Response: Marked relief of symptoms em Outcome: 17:39 Discharge ordered by MD. [facility] 18:01 Discharged to home ambulatory. em 18:01 Condition: good 18:01 Discharge instructions given to patient, Instructed on discharge instructions, follow up and referral plans. Demonstrated understanding of instructions, follow-up care. 18:03 Patient left the ED. em Signatures: Dispatcher [employer] EDMS Alex Jason PA PA jmm Quilty, Betty bq Munoz, Edgar, LVN LVN em Cherise Trevino, RN RN 5 Humaira King, ROYAL RN Mei Mora [facility] Nay Giles [facility]
[2018-08-28 18:19] VITALS: O2SAT 99
[2018-08-28 18:21] VITALS: BP 131/80; TEMP 97.8
== END 2018-08-28 18:03 | disposition home or self-care (01) ==
LOC: ER 11:04
DX: K59.00 Constipation, unspecified (principal); Z79.82 Long term (current) use of aspirin; Z86.73 Personal history of transient ischemic attack (TIA), and cerebral infarction without residual deficits; Z88.0 Allergy status to penicillin; Z88.2 Allergy status to sulfonamides
CPT/HCPCS: 36415; 74176; 80048; 80076; 83690; 85025; 99284; J2405

== ENCOUNTER 2018-09-12 12:43 | Emergency (ER) | payer OTHER ==
[2018-09-12] MEDS ORDERED: HYDROCODONE/APAP 10/325 TAB ONE (14:33)
[2018-09-12] MEDS ORDERED: ONDANSETRON 4 MG/2 ML VIAL ONE (14:38)
[2018-09-12] MEDS ORDERED: MEPERIDINE HCL 50 MG/ML AMP ONE (14:38)
[2018-09-12] MEDS ORDERED: ONDANSETRON 4 MG (ODT) TAB ONE (14:47)
--- NOTE | 2018-09-12 15:43 | EDPHYS ---
Physician Documentation [facility] Name: Dulce Cerna Age: 62 yrs Sex: Female : 1955 Arrival Date: 09/12/2018 Time: 12:55 Bed 14 Private MD: ED Physician Jesus Butt HPI: 09/12 14:32 This 62 yrs old Female presents to ER via EMS with complaints of Fall Injury. jr8 14:32 Details of fall: The patient fell from an upright position, while standing. Onset: The jr8 symptoms/episode began/occurred acutely, today. Associated injuries: The patient sustained injury to the low back, pain, pain with movement, tenderness. Severity of symptoms: At their worst the symptoms were moderate, in the emergency department the symptoms are unchanged. The patient has not experienced similar symptoms in the past. The patient has not recently seen a physician. stated that while at the gym exercising. Got her foot caught causing her to fall to buttocks. Hit back of head but denies LOC. Currently without head or neck pain. Only complaint is low back . Historical: - Allergies: 12:45 PENICILLINS; rb1 12:45 Sulfa (Sulfonamide Antibiotics); rb1 - Home Meds: 12:45 amitriptyline 100 mg Oral tab 1 tab once daily [Active]; aspirin 81 mg Oral TbEC 1 tab rb1 once daily [Active]; clear lax [Active]; clonazepam 2 mg Oral tab 1 tab 2 times per day [Active]; fludrocortisone 0.1 mg Oral tab 1 tab once daily [Active]; liothyronine 5 mcg Oral tab 1 tab once daily [Active]; duloxetine 90mg Oral cpDR 1 cap once daily [Active]; hydrocortisone 10 mg Oral tab 2 tabs take two tablets in the am and one tablet at 2pm [Active]; oxycodone 10 mg Oral tab 1 tab three times a day [Active]; omeprazole 40 mg Oral cpDR 1 cap once daily [Active]; rosuvastatin 10 mg Oral tab 1 tab once daily [Active]; estradiol 2 mg Oral tab 1 tab once daily [Active]; zaleplon 5 mg Oral cap 2 caps once daily [Active]; trazodone 50 mg Oral tab 1 tab daily [Active]; melatonin 10 mg Oral tab daily [Active]; valerian root Oral nightly [Active]; cyclobenzaprine 10 mg Oral tab 1 tab 2 times per day [Active]; promethazine 25 mg Oral tab 1 tab every 6 hours [Active]; - 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 - Social history:: Smoking status: Patient/guardian denies using tobacco. - Ebola Screening: : Patient negative for fever greater than or equal to 101.5 degrees Fahrenheit, and additional compatible Ebola Virus Disease symptoms. ROS: 14:32 Eyes: Negative for injury, pain, redness, and discharge, ENT: Negative for injury, jr8 pain, and discharge, Neck: Negative for injury, pain, and swelling, Cardiovascular: Negative for chest pain, palpitations, and edema, Respiratory: Negative for shortness of breath, cough, wheezing, and pleuritic chest pain, Abdomen/GI: Negative for abdominal pain, nausea, vomiting, diarrhea, and constipation, MS/Extremity: Negative for injury and deformity, Skin: Negative for injury, rash, and discoloration, Neuro: Negative for headache, weakness, numbness, tingling, and seizure. 14:32 Back: Positive for pain at rest, pain with movement, of the low back area. Exam: 14:32 Head/Face: Normocephalic, atraumatic. Eyes: Pupils equal round and reactive to light, jr8 extra-ocular motions intact. Lids and lashes normal. Conjunctiva and sclera are non-icteric and not injected. Cornea within normal limits. Periorbital areas with no swelling, redness, or edema. ENT: Nares patent. No nasal discharge, no septal abnormalities noted. Tympanic membranes are normal and external auditory canals are clear. Oropharynx with no redness, swelling, or masses, exudates, or evidence of obstruction, uvula midline. Mucous membranes moist. Chest/axilla: Normal chest wall appearance and motion. Nontender with no deformity. No lesions are appreciated. Cardiovascular: Regular rate and rhythm with a normal S1 and S2. No gallops, murmurs, or rubs. Normal PMI, no JVD. No pulse deficits. Respiratory: Lungs have equal breath sounds bilaterally, clear to auscultation and percussion. No rales, rhonchi or wheezes noted. No increased work of breathing, no retractions or nasal flaring. Abdomen/GI: Soft, non-tender, with normal bowel sounds. No distension or tympany. No guarding or rebound. No evidence of tenderness throughout. Skin: Warm, dry with normal turgor. Normal color with no rashes, no lesions, and no evidence of cellulitis. MS/ Extremity: Pulses equal, no cyanosis. Neurovascular intact. Full, normal range of motion. Neuro: Awake and alert, GCS 15, oriented to person, place, time, and situation. Cranial nerves II-XII grossly intact. Motor strength 5/5 in all extremities. Sensory grossly intact. 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 Nexus Criteria: there is no tenderness to the posterior midline, the patient is not clinically intoxicated, the patient displays normal alertness, no focal neurologic deficit is appreciated, no distracting injury is present, Nexus criteria: no cervical midline tenderness, patient is not intoxicated, mental status is normal, no focal/neurologic deficits, and no painful distracting injuries are present, vertebral tenderness, is not appreciated, crepitus, is not appreciated, Thyroid: appears normal, Trachea: is midline with no obvious abnormalities, ROM/movement: is normal, is supple, without pain, no range of motions limitations, Lymph nodes: no appreciated lymphadenopathy. 14:32 Back: pain, that is moderate, of the low back area, ROM is painful, normal spinal alignment noted, CVA tenderness, is absent, vertebral tenderness, is appreciated at L4 and L5. Vital Signs: 12:45 BP 141 / 79; Pulse 81; Resp 20; Temp 98.1(O); Pulse Ox 98% on R/A; Weight 80.29 kg (R); rb1 Height 5 ft. 2 in. (157.48 cm) (R); Pain 10/10; 13:30 BP 123 / 91; Pulse 77; Resp 19; Pulse Ox 98% on R/A; rb1 14:27 BP 125 / 78; Pulse 81; Resp 19; Pulse Ox 99% on R/A; rb1 15:27 BP 121 / 60; Pulse 76; Resp 18; Pulse Ox 100% on R/A; rb1 16:10 BP 107 / 93; Pulse 72; Resp 17; Pulse Ox 100% on R/A; rb1 12:45 Body Mass Index 32.37 (80.29 kg, 157.48 cm) rb1 MDM: 12:55 Patient medically screened. jr8 15:41 Data reviewed: vital signs, nurses notes, radiologic studies, plain films, and as a jr8 result, I will discharge patient. Data interpreted: Pulse oximetry: on room air is 100 %. Interpretation: normal. 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 09/12 13:55 Order name: XRAY Pelvis jr8 09/12 13:55 Order name: XRAY Lumbar Spine (3 Views) jr8 Administered Medications: 14:32 Not Given (Provider changed order): [place] 10 mg-325 mg 1 tabs PO once rb1 14:50 Drug: Demerol 50 mg Route: IM; Site: right deltoid; rb1 15:10 Follow up: Response: No adverse reaction; Pain is decreased rb1 14:56 Drug: Zofran 4 mg Route: PO; rb1 15:20 Follow up: Response: No adverse reaction rb1 Disposition: 16:48 Co-signature as Attending Physician, Jesus Butt MD I agree with the assessment and kdr plan of care. Disposition: 09/12/18 15:42 Discharged to Home. Impression: Low back pain. - Condition is Stable. - Discharge Instructions: Back Pain, Adult, Musculoskeletal Pain, Heat Therapy. - Medication Reconciliation Form, Thank You Letter, Antibiotic Education, Prescription Opioid Use form. - Follow up: Private Physician; When: 2 - 3 days; Reason: Recheck today's complaints, Continuance of care, Re-evaluation by your physician. - Problem is new. - Symptoms have improved. Signatures: Dispatcher [employer] EDMS Jesus Butt MD MD kdr Roszak, Josh, PA PA jr8 Sara Ann RN RN rb1 Corrections: (The following items were deleted from the chart) 16:11 15:42 09/12/2018 15:42 Discharged to Home. Impression: Low back pain. Condition is rb1 Stable. Forms are Medication Reconciliation Form, Thank You Letter, Antibiotic Education, Prescription Opioid Use. Follow up: Private Physician; When: 2 - 3 days; Reason: Recheck today's complaints, Continuance of care, Re-evaluation by your physician. Problem is new. Symptoms have improved. jr8
--- NOTE | 2018-09-12 15:43 | ER ---
Nurse's Notes [facility] Name: Dulce Cerna Age: 62 yrs Sex: Female : 1955 Arrival Date: 09/12/2018 Time: 12:55 Bed 14 Private MD: Diagnosis: Low back pain Presentation: 09/12 12:45 Presenting complaint: EMS states: Pt. is A \T\ O x 4, was at the gym when she feel and rb1 hit her head on a machine, denies LOC. Pt. normally wears a back brace but was not wearing it. C/o pain on the top of her head, bilateral hips, and lower back, Pain 09/01. BS 102, BP 138/77, 140/70. History of Bruce's and back pain. Sister will bring a list of medications. Allergy to PCN and Sulfa. Pt. arrived with C-collar in place and on a back board. Transition of care: patient was not received from another setting of care. Onset of symptoms was September 12, 2018 at 12:20. Risk Assessment: Do you want to hurt yourself or someone else? Patient reports no desire to harm self or others. Initial Sepsis Screen: Does the patient meet any 2 criteria? No. Patient's initial sepsis screen is negative. Does the patient have a suspected source of infection? No. Patient's initial sepsis screen is negative. Care prior to arrival: None. 12:45 Method Of Arrival: EMS: [facility] rb1 12:45 Acuity: TRCAY 3 rb1 Triage Assessment: 12:45 General: See nurses notes. rb1 Historical: - Allergies: 12:45 PENICILLINS; rb1 12:45 Sulfa (Sulfonamide Antibiotics); rb1 - Home Meds: 12:45 amitriptyline 100 mg Oral tab 1 tab once daily [Active]; aspirin 81 mg Oral TbEC 1 tab rb1 once daily [Active]; clear lax [Active]; clonazepam 2 mg Oral tab 1 tab 2 times per day [Active]; fludrocortisone 0.1 mg Oral tab 1 tab once daily [Active]; liothyronine 5 mcg Oral tab 1 tab once daily [Active]; duloxetine 90mg Oral cpDR 1 cap once daily [Active]; hydrocortisone 10 mg Oral tab 2 tabs take two tablets in the am and one tablet at 2pm [Active]; oxycodone 10 mg Oral tab 1 tab three times a day [Active]; omeprazole 40 mg Oral cpDR 1 cap once daily [Active]; rosuvastatin 10 mg Oral tab 1 tab once daily [Active]; estradiol 2 mg Oral tab 1 tab once daily [Active]; zaleplon 5 mg Oral cap 2 caps once daily [Active]; trazodone 50 mg Oral tab 1 tab daily [Active]; melatonin 10 mg Oral tab daily [Active]; valerian root Oral nightly [Active]; cyclobenzaprine 10 mg Oral tab 1 tab 2 times per day [Active]; promethazine 25 mg Oral tab 1 tab every 6 hours [Active]; - 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 - Social history:: Smoking status: Patient/guardian denies using tobacco. - Ebola Screening: : Patient negative for fever greater than or equal to 101.5 degrees Fahrenheit, and additional compatible Ebola Virus Disease symptoms. Screenin:45 Abuse screen: Denies threats or abuse. Nutritional screening: No deficits noted. rb1 Tuberculosis screening: No symptoms or risk factors identified. Fall Risk Fall in past 12 months (25 points). No secondary diagnosis (0 pts). No IV (0 pts). Ambulatory Aid- None/Bed Rest/Nurse Assist (0 pts). Gait- Normal/Bed Rest/Wheelchair (0 pts) Mental Status- Oriented to own ability (0 pts). Total Vásquez Fall Scale indicates Low Risk Score (25-44 pts). Fall prevention measures have been instituted. Side Rails Up X 2 Placed close to Nursing Station 1:1 attendant Assigned to Pt. Frequent Obs/Assesments occuring As available Patient and Family Educated on Fall Prevention Program and strategies. Assessment: 12:45 General: Appears uncomfortable, Behavior is calm, cooperative. Pain: Complains of pain rb1 in Top of head, lower back, bilateral hips Pain currently is 10 out of 10 on a pain scale. Neuro: Level of Consciousness is awake, alert, obeys commands, Oriented to person, place, time, situation. Cardiovascular: Capillary refill < 3 seconds is brisk in bilateral fingers. Respiratory: Airway is patent Respiratory effort is even, unlabored, Respiratory pattern is regular, symmetrical. GI: No signs and/or symptoms were reported involving the gastrointestinal system. : No signs and/or symptoms were reported regarding the genitourinary system. Derm: Skin is pink, warm \T\ dry. Musculoskeletal: Range of motion: intact in all extremities. 13:40 Reassessment: Patient appears in no apparent distress at this time. No changes from rb1 previously documented assessment. 14:38 Reassessment: Patient appears in no apparent distress at this time. Patient and/or rb1 family updated on plan of care and expected duration. Pain level reassessed. Patient is alert, oriented x 3, equal unlabored respirations, skin warm/dry/pink. 15:30 Reassessment: Patient appears in no apparent distress at this time. Patient and/or rb1 family updated on plan of care and expected duration. Pain level reassessed. Patient is alert, oriented x 3, equal unlabored respirations, skin warm/dry/pink. Pain 6/10. 16:00 Reassessment: Patient appears in no apparent distress at this time. No changes from rb1 previously documented assessment. Vital Signs: 12:45 BP 141 / 79; Pulse 81; Resp 20; Temp 98.1(O); Pulse Ox 98% on R/A; Weight 80.29 kg (R); rb1 Height 5 ft. 2 in. (157.48 cm) (R); Pain 10/10; 13:30 BP 123 / 91; Pulse 77; Resp 19; Pulse Ox 98% on R/A; rb1 14:27 BP 125 / 78; Pulse 81; Resp 19; Pulse Ox 99% on R/A; rb1 15:27 BP 121 / 60; Pulse 76; Resp 18; Pulse Ox 100% on R/A; rb1 16:10 BP 107 / 93; Pulse 72; Resp 17; Pulse Ox 100% on R/A; rb1 12:45 Body Mass Index 32.37 (80.29 kg, 157.48 cm) rb1 ED Course: 12:45 Arm band placed on right wrist. rb1 12:45 Patient has correct armband on for positive identification. Bed in low position. Call rb1 light in reach. Side rails up X2. Pulse ox on. NIBP on. Warm blanket given. 12:55 Patient arrived in ED. rb1 12:55 Kaushal Camarena PA is PHCP. jr8 12:55 Jesus Butt MD is Attending Physician. jr8 12:56 Sara Ann, RN is Primary Nurse. rb1 13:04 Triage completed. rb1 14:49 XRAY Pelvis In Process Unspecified. EDMS 14:49 XRAY Lumbar Spine (3 Views) In Process Unspecified. EDMS 16:11 No provider procedures requiring assistance completed. Patient did not have IV access rb1 during this emergency room visit. Administered Medications: 14:32 Not Given (Provider changed order): [place] 10 mg-325 mg 1 tabs PO once rb1 14:50 Drug: Demerol 50 mg Route: IM; Site: right deltoid; rb1 15:10 Follow up: Response: No adverse reaction; Pain is decreased rb1 14:56 Drug: Zofran 4 mg Route: PO; rb1 15:20 Follow up: Response: No adverse reaction rb1 Outcome: 15:42 Discharge ordered by MD. jr8 16:11 Patient left the ED. rb1 16:11 Discharged to home ambulatory, with family. rb1 16:11 Condition: stable 16:11 Discharge instructions given to patient, Instructed on discharge instructions, follow up and referral plans. Demonstrated understanding of instructions, follow-up care. Signatures: Dispatcher [employer] EDPR Kaushal Camarena PA PA jr8 Sara Ann, RN RN rb1
[2018-09-12 16:17] VITALS: TEMP 98.1
[2018-09-12 16:20] VITALS: BP 121/60; O2SAT 100
--- NOTE | 2018-09-12 18:18 | RAD REPORT ---
EXAM DESCRIPTION: RAD - Lumbar Spine 3 Views - 09/12/2018 2:49 pm CLINICAL HISTORY: Back pain COMPARISON: February 2017 FINDINGS: A three-view lumbar spine examination was performed. Lumbar bodies are normal in height an d normal in AP alignment. Left lateral tilt of the lower thoracic and upper lumbar spine may be posit ional. This was not present the prior study. No compression fracture or acute vertebral body finding. Lower lumbar facet joint degenerative changes are present most pronounced at L5-S1. No disc space na rrowing. No pars defects identified. Arterial tree calcifications are present. IMPRESSION: No compression fracture or acute lumbar finding. Lower lumbar facet degenerative change not substantially different from comparison.
--- NOTE | 2018-09-12 18:19 | RAD REPORT ---
EXAM DESCRIPTION: RAD - Pelvis - 09/12/2018 2:49 pm CLINICAL HISTORY: Fall, pelvic pain COMPARISON: None. TECHNIQUE: AP imaging of the pelvis was obtained. FINDINGS: No fracture of the bony pelvis. No fracture, dislocation or other acute hip joint finding. No significant SI joint findings. No joint effusion or periarticular soft tissue abnormality. Benign calcifications seen in the lateral soft tissues. IMPRESSION: Negative pelvis for acute or significant findings.
== END 2018-09-12 16:11 | disposition home or self-care (01) ==
LOC: ER 12:43
DX: M54.5 Low back pain (principal); W18.30XA Fall on same level, unspecified, initial encounter; Y93.9 Activity, unspecified; Y92.39 Other specified sports and athletic area as the place of occurrence of the external cause; Y99.8 Other external cause status; Z88.0 Allergy status to penicillin; Z88.2 Allergy status to sulfonamides
CPT/HCPCS: 72100; 72170; 96372; 99284; J2175; J2405

== ENCOUNTER 2018-10-31 11:38 | Observation (INO) | payer OTHER ==
--- NOTE | 2018-10-31 13:13 | RAD REPORT ---
EXAM DESCRIPTION: RAD - Chest Pa And Lat (2 Views) - 10/31/2018 1:07 pm CLINICAL HISTORY: COUGH Chest pain. COMPARISON: Chest Single View dated 04/07/2018; Chest Single View dated 02/28/2018; Chest Single View d ated 02/25/2017; Chest Pa And Lat (2 Views) dated 10/14/2016 FINDINGS: Linear opacities are present in the lingula, likely representing developing pneumonia. The heart is normal in size. No displaced fractures. IMPRESSION: Developing lingular pneumonia.
[2018-10-31] MEDS ORDERED: Levofloxacin500mg IV 500 MG/100 ML BAG IV ONE (14:09)
[2018-10-31 14:18] LABS: Urine Bacteria >50 /HPF (<20); Urine Culture Reflex Order REFLEXED; Urine RBC NONE SEEN /HPF (NONE SEEN)
[2018-10-31 14:54] LABS: Absolute Monocytes 0.5 K/uL (0.1-1.3); Basophils % 0.3 % (0-1.3); Eosinophils % 0.2 % (0-4.4); Hematocrit 31.4 % (36.0-45.0); Lymphocytes % 6.6 % (15.3-44.8); MCH 28.1 pg (27.0-35.0); MPV 8.3 fL (7.6-11.3); Monocytes % 3.2 % (3.3-12.3); RBC Red Blood Cell Count 3.73 M/uL (3.86-4.86)
[2018-10-31 14:56] LABS: Protime INR 1.04
[2018-10-31 15:01] LABS: Albumin 3.4 g/dL (3.4-5.0); Bilirubin Direct 0.1 mg/dL (0-0.2); Bilirubin Total 0.3 mg/dL (0.2-1.0); Protein, Total 7.2 g/dL (6.4-8.2)
[2018-10-31 15:32] LABS: Urine Blood TRACE (NEG); Urine Glucose NEGATIVE (NEG); Urine Protein NEGATIVE (NEG); Urine pH 5.5 (5.0-7.0)
--- NOTE | 2018-10-31 15:37 | ER ---
Nurse's Notes [facility] Name: Dulce Cerna Age: 62 yrs Sex: Female : 1955 Arrival Date: 10/31/2018 Time: 11:41 Bed 16 Private MD: Brayan Valladares E Diagnosis: Pneumonia, unspecified organism;Urinary tract infection, site not specified Presentation: 10/31 11:47 Presenting complaint: Patient states: Cough and fever that started last night. Report aj taking Tylenol at 0730 this AM. Transition of care: patient was not received from another setting of care. Onset of symptoms was October 31, 2018. Risk Assessment: Do you want to hurt yourself or someone else? Patient reports no desire to harm self or others. Initial Sepsis Screen: Does the patient meet any 2 criteria? No. Patient's initial sepsis screen is negative. Does the patient have a suspected source of infection? No. Patient's initial sepsis screen is negative. Care prior to arrival: None. 11:47 Method Of Arrival: Ambulatory aj 11:47 Acuity: TRACY 3 aj Triage Assessment: 11:50 General: Appears in no apparent distress. comfortable, Behavior is calm, cooperative, aj appropriate for age. Pain: Denies pain. Neuro: Level of Consciousness is awake, alert, obeys commands, Oriented to person, place, time, situation, Appropriate for age. Respiratory: Reports shortness of breath cough that is pain with cough. Derm: Skin is intact, is healthy with good turgor, Skin is pink, warm \\T\\ dry. normal. Historical: - Allergies: 11:50 PENICILLINS; aj 11:50 Sulfa (Sulfonamide Antibiotics); aj - Home Meds: 11:50 amitriptyline 100 mg Oral tab 1 tab once daily [Active]; aspirin 81 mg Oral TbEC 1 tab aj once daily [Active]; clonazepam 2 mg Oral tab 1 tab 2 times per day [Active]; cyclobenzaprine 10 mg Oral tab 1 tab 2 times per day [Active]; duloxetine 90mg Oral cpDR 1 cap once daily [Active]; estradiol 2 mg Oral tab 1 tab once daily [Active]; fludrocortisone 0.1 mg Oral tab 1 tab once daily [Active]; hydrocortisone 10 mg Oral tab 2 tabs take two tablets in the am and one tablet at 2pm [Active]; melatonin 10 mg Oral tab daily [Active]; liothyronine 5 mcg Oral tab 1 tab once daily [Active]; omeprazole 40 mg Oral cpDR 1 cap once daily [Active]; oxycodone 10 mg Oral tab 1 tab three times a day [Active]; promethazine 25 mg Oral tab 1 tab every 6 hours [Active]; rosuvastatin 10 mg Oral tab 1 tab once daily [Active]; trazodone 50 mg Oral tab 1 tab daily [Active]; valerian root Oral nightly [Active]; clear lax [Active]; zaleplon 5 mg Oral cap 2 caps once daily [Active]; - PMHx: 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 - Social history:: Smoking status: Patient/guardian denies using tobacco. - Ebola Screening: : Patient negative for fever greater than or equal to 101.5 degrees Fahrenheit, and additional compatible Ebola Virus Disease symptoms Patient denies exposure to infectious person Patient denies travel to an Ebola-affected area in the 21 days before illness onset No symptoms or risks identified at this time. Screenin:42 Abuse screen: Denies threats or abuse. Denies injuries from another. Nutritional jl7 screening: No deficits noted. Tuberculosis screening: No symptoms or risk factors identified. Fall Risk None identified. Assessment: 12:42 General: Appears in no apparent distress. uncomfortable, Behavior is calm, cooperative, jl7 appropriate for age. Pain: Denies pain. Neuro: Level of Consciousness is awake, alert, obeys commands, Oriented to person, place, time, situation. Cardiovascular: Heart tones S1 S2 present Patient's skin is warm and dry. Respiratory: Airway is patent Respiratory effort is even, unlabored, Respiratory pattern is regular, symmetrical, Breath sounds are clear bilaterally. GI: No signs and/or symptoms were reported involving the gastrointestinal system. : No signs and/or symptoms were reported regarding the genitourinary system. EENT: No signs and/or symptoms were reported regarding the EENT system. Derm: Skin is pink, warm \\T\\ dry. 14:00 Reassessment: Patient appears in no apparent distress at this time. Patient and/or jl7 family updated on plan of care and expected duration. Pain level reassessed. Patient is alert, oriented x 3, equal unlabored respirations, skin warm/dry/pink. 15:30 Reassessment: Patient appears in no apparent distress at this time. No changes from jl7 previously documented assessment. Patient and/or family updated on plan of care and expected duration. Pain level reassessed. Patient is alert, oriented x 3, equal unlabored respirations, skin warm/dry/pink. 17:45 Reassessment: Pt c/o nausea, reports "I take Phenergan at home." ERP notified, see MAR jl7 for orders. 19:40 Reassessment: Patient appears in no apparent distress at this time. No changes from jd3 previously documented assessment. Patient and/or family updated on plan of care and expected duration. Pain level reassessed. Patient is alert, oriented x 3, equal unlabored respirations, skin warm/dry/pink. Vital Signs: 11:50 BP 118 / 69; Pulse 58; Resp 22; Temp 98.8(O); Pulse Ox 97% on R/A; Weight 80.29 kg; aj Height 5 ft. 2 in. (157.48 cm); 13:30 BP 120 / 70; Pulse 60; Resp 16 S; Pulse Ox 98% on R/A; jl7 16:45 BP 141 / 73; Pulse 75; Resp 16 S; Pulse Ox 98% on R/A; jl7 18:07 BP 150 / 80; Pulse 89; Resp 16 S; Temp 99(O); Pulse Ox 98% on R/A; Pain 0/10; jl7 19:04 BP 128 / 77; Pulse 85; Resp 16 S; Pulse Ox 97% on R/A; jl7 11:50 Body Mass Index 32.37 (80.29 kg, 157.48 cm) aj ED Course: 11:41 Patient arrived in ED. as 11:41 Brayan Valladares MD is Private Physician. as 11:48 Triage completed. aj 11:50 Arm band placed on left wrist. Patient placed in waiting room, Patient notified of wait aj time. Labs ordered per protocol. Drawn by ED staff. X-ray ordered. 12:14 José Wilson NP is PHCP. pm1 12:14 Fletcher Pruitt MD is Attending Physician. pm1 12:17 Renetta Padilla, RN is Primary Nurse. jl7 12:42 Patient has correct armband on for positive identification. Placed in gown. Bed in low jl7 position. Call light in reach. Side rails up X 1. senior mechanical estimator on. Pulse ox on. NIBP on. 13:03 X-ray completed. Patient tolerated procedure well. la2 13:04 Chest Pa And Lat (2 Views) XRAY In Process Unspecified. EDMS 15:21 Flu Sent. jl7 15:21 EKG done, by ED staff, reviewed by Fletcher Pruitt MD. em 15:35 Cecilia Vital MD is Hospitalizing Provider. pm1 19:03 No provider procedures requiring assistance completed. Inserted saline lock: 18 gauge ak1 in left EJ, using aseptic technique. ,using aseptic technique. placed by Elodia Piper RN Patient admitted, IV remains in place. Administered Medications: 14:30 Drug: LevaQUIN 500 mg Volume: 100 ml; Route: IVPB; Infused Over: 60 mins; Site: left jl7 jugular; 15:30 Follow up: Response: No adverse reaction; IV Status: Completed infusion jl7 17:57 Drug: Phenergan 25 mg Route: PO; jl7 18:45 Follow up: Response: No adverse reaction; Nausea is decreased jl7 19:05 Follow up: Response: No adverse reaction ak1 Outcome: 15:36 Decision to Hospitalize by Provider. pm1 19:03 Condition: stable ak1 19:03 Instructed on the need for admit. 19:33 Admitted to Med/surg accompanied by tech, via wheelchair, room 402, with chart, Report ak1 called to kevin 19:42 Patient left the ED. jd3 Signatures: Dispatcher [employer] EDElodia Murillo, RN Enrique Rocha, RESEARCH AND DEVELOPMENT ENGINEER RESEARCH AND DEVELOPMENT ENGINEER Jaleesa Richmond Amber, RN RN ak1 José Wilson, HVAC PROJECT ENGINEER HVAC PROJECT ENGINEER pm1 Renetta Padilla, ROYAL RN jl7 Brii Willett la2 Waqas Sutton RN RN jd3
--- NOTE | 2018-10-31 15:38 | EDPHYS ---
Physician Documentation [facility] Name: Dulce Cerna Age: 62 yrs Sex: Female : 1955 Arrival Date: 10/31/2018 Time: 11:41 Bed 16 Private MD: Brayan Valladares E ED Physician Fletcher Pruitt HPI: 10/31 13:30 This 62 yrs old Female presents to ER via Ambulatory with complaints of pm1 Fever, Cough, Congestion. 13:30 The patient or guardian reports cough, with no sputum, Feels congested. Onset: The pm1 symptoms/episode began/occurred last night. Severity of symptoms: in the emergency department the symptoms are actually worse. Modifying factors: The symptoms are alleviated by Fever improved with Tylenol this AM the symptoms are aggravated by. Associated signs and symptoms: Pertinent positives: chest pain, with cough, fever, sore throat, Sinus congestion, Pertinent negatives: diarrhea, ear ache, vomiting. The patient has experienced similar episodes in the past, a few times, today's symptoms are similar, to previous Pneumonia and sepsis. The patient has not recently seen a physician, the patient's primary care provider is Dr. Valladares. Historical: - Allergies: 11:50 PENICILLINS; aj 11:50 Sulfa (Sulfonamide Antibiotics); aj - Home Meds: 11:50 amitriptyline 100 mg Oral tab 1 tab once daily [Active]; aspirin 81 mg Oral TbEC 1 tab aj once daily [Active]; clonazepam 2 mg Oral tab 1 tab 2 times per day [Active]; cyclobenzaprine 10 mg Oral tab 1 tab 2 times per day [Active]; duloxetine 90mg Oral cpDR 1 cap once daily [Active]; estradiol 2 mg Oral tab 1 tab once daily [Active]; fludrocortisone 0.1 mg Oral tab 1 tab once daily [Active]; hydrocortisone 10 mg Oral tab 2 tabs take two tablets in the am and one tablet at 2pm [Active]; melatonin 10 mg Oral tab daily [Active]; liothyronine 5 mcg Oral tab 1 tab once daily [Active]; omeprazole 40 mg Oral cpDR 1 cap once daily [Active]; oxycodone 10 mg Oral tab 1 tab three times a day [Active]; promethazine 25 mg Oral tab 1 tab every 6 hours [Active]; rosuvastatin 10 mg Oral tab 1 tab once daily [Active]; trazodone 50 mg Oral tab 1 tab daily [Active]; valerian root Oral nightly [Active]; clear lax [Active]; zaleplon 5 mg Oral cap 2 caps once daily [Active]; - PMHx: 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 - Social history:: Smoking status: Patient/guardian denies using tobacco. - Ebola Screening: : Patient negative for fever greater than or equal to 101.5 degrees Fahrenheit, and additional compatible Ebola Virus Disease symptoms Patient denies exposure to infectious person Patient denies travel to an Ebola-affected area in the 21 days before illness onset No symptoms or risks identified at this time. ROS: 13:30 Eyes: Negative for injury, pain, redness, and discharge, ENT: Negative for injury, pm1 pain, and discharge, Neck: Negative for injury, pain, and swelling, Cardiovascular: Negative for chest pain, palpitations, and edema. 13:30 Abdomen/GI: Negative for abdominal pain, nausea, vomiting, diarrhea, and constipation, Back: Negative for injury and pain, : Negative for injury, bleeding, discharge, and swelling, MS/Extremity: Negative for injury and deformity, Skin: Negative for injury, rash, and discoloration, Neuro: Negative for headache, weakness, numbness, tingling, and seizure. 13:30 Constitutional: Positive for fever. 13:30 Respiratory: Positive for cough, Negative for shortness of breath, sputum production, wheezing. Exam: 13:30 Constitutional: This is a well developed, well nourished patient who is awake, alert, pm1 and in no acute distress. Eyes: Pupils equal round and reactive to light, extra-ocular motions intact. Lids and lashes normal. Conjunctiva and sclera are non-icteric and not injected. Cornea within normal limits. Periorbital areas with no swelling, redness, or edema. ENT: Nares patent. No nasal discharge, no septal abnormalities noted. Tympanic membranes are normal and external auditory canals are clear. Oropharynx with no redness, swelling, or masses, exudates, or evidence of obstruction, uvula midline. Mucous membranes moist. Neck: Trachea midline, no thyromegaly or masses palpated, and no cervical lymphadenopathy. Supple, full range of motion without nuchal rigidity, or vertebral point tenderness. No Meningismus. Chest/axilla: Normal chest wall appearance and motion. Nontender with no deformity. No lesions are appreciated. Cardiovascular: Regular rate and rhythm with a normal S1 and S2. No gallops, murmurs, or rubs. Normal PMI, no JVD. No pulse deficits. Respiratory: Lungs have equal breath sounds bilaterally, clear to auscultation and percussion. No rales, rhonchi or wheezes noted. No increased work of breathing, no retractions or nasal flaring. Abdomen/GI: Soft, non-tender, with normal bowel sounds. No distension or tympany. No guarding or rebound. No evidence of tenderness throughout. Back: No spinal tenderness. No costovertebral tenderness. Full range of motion. Skin: Warm, dry with normal turgor. Normal color with no rashes, no lesions, and no evidence of cellulitis. MS/ Extremity: Pulses equal, no cyanosis. Neurovascular intact. Full, normal range of motion. 13:30 Head/face: Sinus tenderness, that is moderate, is located over the right frontal sinus and left frontal sinus. 13:30 Neuro: Orientation: is normal, Motor: is normal, moves all fours. Vital Signs: 11:50 BP 118 / 69; Pulse 58; Resp 22; Temp 98.8(O); Pulse Ox 97% on R/A; Weight 80.29 kg; aj Height 5 ft. 2 in. (157.48 cm); 13:30 BP 120 / 70; Pulse 60; Resp 16 S; Pulse Ox 98% on R/A; jl7 16:45 BP 141 / 73; Pulse 75; Resp 16 S; Pulse Ox 98% on R/A; jl7 18:07 BP 150 / 80; Pulse 89; Resp 16 S; Temp 99(O); Pulse Ox 98% on R/A; Pain 0/10; jl7 19:04 BP 128 / 77; Pulse 85; Resp 16 S; Pulse Ox 97% on R/A; jl7 11:50 Body Mass Index 32.37 (80.29 kg, 157.48 cm) MDM: 12:14 Patient medically screened. christ 13:30 ED course: Reaction to PCN and sulfa is respiratory distress. Levaquin ordered. pm1 15:04 Data reviewed: vital signs. Data interpreted: Pulse oximetry: on room air is 97 %. pm1 Interpretation: normal. Counseling: I had a detailed discussion with the patient and/or guardian regarding: the historical points, exam findings, and any diagnostic results supporting the discharge/admit diagnosis, lab results, radiology results, the need for further work-up and treatment in the hospital. 15:34 Physician consultation: Cecilia Vital MD was contacted at 15:34, regarding admission, pm1 patient's condition, and will see patient in ED, in the emergency department to see patient at 15:34. 10/31 11:52 Order name: Flu; Complete Time: 12:49 snw 10/31 11:52 Order name: Strep; Complete Time: 12:21 aj 10/31 11:52 Order name: Flu aj 10/31 12:22 Order name: Throat Culture EDRI 10/31 12:55 Order name: Basic Metabolic Panel; Complete Time: 15:03 pm1 10/31 12:55 Order name: Blood Culture Adult (2) pm1 10/31 12:55 Order name: CBC with Diff; Complete Time: 18:09 pm1 10/31 12:55 Order name: Lactate; Complete Time: 15:03 pm1 10/31 12:55 Order name: LFT's; Complete Time: 15:03 pm1 10/31 12:55 Order name: Lipase; Complete Time: 15:03 pm1 10/31 12:55 Order name: Procalcitonin; Complete Time: 16:32 pm1 10/31 12:55 Order name: Protime (+inr); Complete Time: 15:06 pm1 10/31 12:55 Order name: Ptt, Activated; Complete Time: 15:06 pm1 10/31 12:55 Order name: Urine Microscopic Only; Complete Time: 14:32 pm1 10/31 11:52 Order name: Chest Pa And Lat (2 Views) XRAY; Complete Time: 13:14 aj 10/31 13:23 Order name: Ckmb pm1 10/31 13:23 Order name: CPK pm1 10/31 13:23 Order name: Troponin (emerg Dept Use Only) pm1 10/31 14:11 Order name: Urine Dipstick--Ancillary (enter results); Complete Time: 15:37 bd 10/31 14:20 Order name: Urine Culture EDMS 10/31 16:02 Order name: CBC with Automated Diff EDMS 10/31 16:02 Order name: CBC with Automated Diff EDMS 10/31 16:02 Order name: CBC with Automated Diff EDMS 10/31 16:02 Order name: CBC with Automated Diff EDMS 10/31 16:02 Order name: Comprehensive Metabolic Panel EDMS 10/31 16:02 Order name: Comprehensive Metabolic Panel EDMS 10/31 16:02 Order name: Comprehensive Metabolic Panel EDMS 10/31 16:02 Order name: Comprehensive Metabolic Panel EDMS 10/31 17:34 Order name: CBC Smear Scan; Complete Time: 18:09 EDMS 10/31 12:55 Order name: IV Saline Lock - Large Bore; Complete Time: 15:07 pm1 10/31 12:55 Order name: Labs collected and sent; Complete Time: 15:07 pm1 10/31 12:55 Order name: O2 Per Protocol; Complete Time: 14:04 pm1 10/31 12:55 Order name: O2 Sat Monitoring; Complete Time: 14:04 pm1 10/31 12:55 Order name: Urine Dipstick-Ancillary (obtain specimen); Complete Time: 15:21 pm1 10/31 13:23 Order name: Cardiac monitoring; Complete Time: 15:21 pm1 10/31 13:23 Order name: EKG - Nurse/Tech; Complete Time: 15:20 pm1 10/31 16:02 Order name: Heart Healthy EDMS Administered Medications: 14:30 Drug: LevaQUIN 500 mg Volume: 100 ml; Route: IVPB; Infused Over: 60 mins; Site: left jl7 jugular; 15:30 Follow up: Response: No adverse reaction; IV Status: Completed infusion jl7 17:57 Drug: Phenergan 25 mg Route: PO; jl7 18:45 Follow up: Response: No adverse reaction; Nausea is decreased jl7 19:05 Follow up: Response: No adverse reaction ak1 Disposition: 11/01 06:42 Co-signature as Attending Physician, Fletcher Pruitt MD I agree with the assessment and christ plan of care. Disposition: 10/31/18 15:36 Hospitalization ordered by Cecilia Vital for Observation. Preliminary diagnosis are Pneumonia, unspecified organism, Urinary tract infection, site not specified. - Bed requested for Telemetry/MedSurg (observation). - Status is Observation. jd3 - Condition is Stable. - Problem is new. - Symptoms have improved. UTI on Admission? Yes Signatures: Dispatcher [employer] EDMS Elodia Stovall, RN RN Fletcher Gonzales MD MD cha Garcia, Cindy RN RN cg José Wilson, PORTER LUGGAGE PORTER LUGGAGE pm1 Renetta Padilla RN RN jl7 Waqas Sutton RN RN jd3 Jenae Harley RN ak1 Corrections: (The following items were deleted from the chart) 10/31 18:48 15:36 Hospitalization Ordered by Cecilia Vital MD for Observation. Preliminary cg diagnosis is Pneumonia, unspecified organism; Urinary tract infection, site not specified. Bed requested for Telemetry/MedSurg (observation). Status is Observation. Condition is Stable. Problem is new. Symptoms have improved. UTI on Admission? Yes. pm1 19:42 18:48 10/31/2018 15:36 Hospitalization Ordered by Cecilia Vital MD for Observation. jd3 Preliminary diagnosis is Pneumonia, unspecified organism; Urinary tract infection, site not specified. Bed requested for Telemetry/MedSurg (observation). Status is Observation. Condition is Stable. Problem is new. Symptoms have improved. UTI on Admission? Yes. cg
[2018-10-31] MEDS ORDERED: ACETAMINOPHEN 500 MG TAB PO PRN (15:55)
[2018-10-31 17:33] LABS: Blood Morphology Comment NOT SEEN (NOT SEEN); Platelet Estimate ADEQ; Urine White Blood Cell Casts OK
[2018-10-31] MEDS ORDERED: PROMETHAZINE 25 MG TABLET ONE (17:57)
[2018-10-31 20:11] LABS: CKMB Creatine Kinase MB < 1.0 ng/mL (0.3-3.6); Creatine Phosphokinase 28 U/L (26-192); Troponin (Emerg Dept Use Only) < 0.02 ng/mL (0.0-0.045)
[2018-10-31 20:27] VITALS: BMI 32.3
[2018-10-31] MEDS: NA CHLORIDE 0.9% 1,000 ML IV SCH (21:34)
[2018-10-31] MEDS: ONDANSETRON 4 MG/2 ML VIAL IV PRN (21:35)
[2018-11-01] MEDS ORDERED: [UNRECOGNIZED DRUG - OTHER] PO PRN (01:28)
--- NOTE | 2018-11-01 01:36 | P.HP ---
Certification for Inpatient Patient admitted to: Inpatient Patient will require the following post-hospital care: None Practitioner: I am a practitioner with admitting privileges, knowledge of patient current condition, hospital course, and medical plan of care. Services: Services provided to patient in accordance with Admission requirements found in Title 42 Section 412.3 of the Code of Federal Regulations Patient History Date of Service: 10/31/18 Reason for admission: UTI/Pneumonia History of Present Illness: Patient is a 62yo who was admitted to the hospital with lingular pneumonia and a UTI. Patient has been having fever, shakes, and chills. Patient states she has not been feeling like herself. She has been run down and feeling lethargic. She came into the ER for further evaluation. Her workup in the emergency room revealed a pneumonia along with urinary tract infection. Patient was started on antibiotics and IV hydration. Patient will be admitted to the hospital for further evaluation. Allergies Penicillins Allergy (Verified 10/31/18 22:01) Shortness of breath Sulfa (Sulfonamide Antibiotics) [Sulfa(Sulfonamide Antibiotics)] Allergy ( Verified 10/31/18 22:01) Shortness of breath NSAIDS Adverse Reaction (Uncoded 10/31/18 22:01) Shortness of breath Home Medications: Amitriptyline HCl 100 mg PO BEDTIME 09/07/16 Aspirin [Aspir-Low] 81 mg PO DAILY 09/07/16 Duloxetine HCl 30 mg PO DAILY 09/07/16 Estradiol 2 mg PO BEDTIME 09/07/16 Fludrocortisone [Florinef *] 0.1 mg PO DAILY 09/07/16 Hydrocortisone [Cortef*] 10 mg PO NOON 02/28/18 Melatonin 10 mg PO BEDTIME 02/28/18 Oxycodone HCl 10 mg PO TID 02/28/18 Polyethylene Glycol 3350 [Clearlax] 17 gm PO DAILY 02/28/18 Rosuvastatin [Crestor*] 10 mg PO BEDTIME 02/28/18 Valerian Root Extract [Valerian] 150 mg PO PRN PRN 02/28/18 Duloxetine [Cymbalta *] 60 mg PO DAILY 04/08/18 Hydrocortisone [Cortef*] 20 mg PO DAILY 04/08/18 Omeprazole [Prilosec] 40 mg PO DAILY 04/08/18 Promethazine HCl 1 tab PO Q6H PRN 10/31/18 Zaleplon 2 cap PO BEDTIME 10/31/18 clonazePAM [Clonazepam] 1 tab PO BID 10/31/18 Trazodone [Desyrel*] 1 tab PO BEDTIME 11/01/18 - Past Medical/Surgical History Has patient received pneumonia vaccine in the past: No Diabetic: No -: Cleveland's -: Irritable Bowel Syndrome -: TIA -: Chronic back pain -: Cholecystectomy -: Appy -: -: Hysterectomy - Family History Mother History Unknown: Yes Medical History: Other (see notes) Notes: asthma - Social History Smoking Status: Never smoker Alcohol use: No CD- Drugs: No Caffeine use: Yes Place of Residence: Home Review of Systems 10-point ROS is otherwise unremarkable Physical Examination - Vital Signs Temperature: 98 F Blood Pressure: 121/56 Pulse: 88 Respirations: 19 Pulse Ox (%): 95 - Physical Exam General: Alert, In no apparent distress, Oriented x3 HEENT: Atraumatic, PERRLA, Mucous membr. moist/pink, EOMI, Sclerae nonicteric Neck: Supple, 2+ carotid pulse no bruit, No LAD, Without JVD or thyroid abnormality Respiratory: Clear to auscultation bilaterally, Normal air movement Cardiovascular: Regular rate/rhythm, Normal S1 S2, No murmurs Gastrointestinal: Normal bowel sounds, Soft and benign, Non-distended, No tenderness Musculoskeletal: No clubbing, No swelling, No tenderness Integumentary: No rashes Neurological: Normal gait, Normal speech, Normal strength at 5/5 x4 extr, Normal tone, Sensation intact, Cranial nerves 3-12 intact, Normal affect Lymphatics: No axilla or inguinal lymphadenopathy - Studies Laboratory Data (last 24 hrs) 10/31/18 14:30: PT 12.3, INR 1.04, APTT 32.9 10/31/18 14:30: WBC 15.7 H D, Hgb 10.5 L, Hct 31.4 L, Plt Count 282 D 10/31/18 14:30: Sodium 139, Potassium 4.0, BUN 10, Creatinine 0.80, Glucose 104 , Total Bilirubin 0.3, AST 12 L, ALT 24, Alkaline Phosphatase 100, Lipase 46 L Microbiology Data (last 24 hrs): 10/31/18 11:46 Nasopharnyx Influenza Type A Antigen Screen - Final 10/31/18 11:46 Nasopharnyx Influenza Type B Antigen Screen - Final 10/31/18 11:46 Throat Group A Streptococcus Rapid Screen - Final Assessment & Plan - Problems (Diagnosis) (1) Fever Onset Date: 09/08/16 Current Visit: No Status: Acute Qualifiers: Fever type: drug-induced Qualified Code(s): R50.2 - Drug induced fever (2) LLL pneumonia Onset Date: 09/08/16 Current Visit: No Status: Acute Qualifiers: (3) UTI (urinary tract infection) Current Visit: No Status: Acute Qualifiers: (4) Weakness Onset Date: 09/08/16 Current Visit: No Status: Acute (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 Continue with IV antibiotics 2. Awaiting culture results 3. Repeat chest x-ray 4. Will proceed with CT scan of the chest 5. Continue with nebs as needed 6. O2 per protocol 7. Continue with gentle hydration 8. Repeat labs including CBC and renal function in a.m. 9. Patient on multiple anxiolytics and pain medication. Will continue 10. GI and DVT prophylaxis - Advance Directives Does patient have a Living Will: Yes Does patient have a Durable POA for Healthcare: Yes - Code Status/Comfort Care Code Status Assessed: Yes Code Status: Full Code Critical Care: No Time Spent Managing PTS Care (In Minutes): 50
[2018-11-01] MEDS: OXYCODONE HCL 5 MG TAB PO PRN ×3 (02:26→18:22)
[2018-11-01] MEDS: NA CHLORIDE 0.9% 1,000 ML IV SCH ×3 (02:27→20:00)
[2018-11-01] MEDS: AMITRIPTYLINE 50 MG TAB PO SCH ×2 (02:27→20:00)
[2018-11-01 05:51] LABS: Absolute Lymphocytes (CBC) 1.7 K/uL (0.7-4.9); Absolute Monocytes 0.8 K/uL (0.1-1.3); Absolute Neutrophil 10.6 K/uL (1.8-8.0); Basophils % 0.5 % (0-1.3); Eosinophils % 1.7 % (0-4.4); Hematocrit 28.7 % (36.0-45.0); Lymphocytes % 12.7 % (15.3-44.8); MCH 28.1 pg (27.0-35.0); MCV 84.3 fL (80-100); MPV 8.3 fL (7.6-11.3); Monocytes % 6.2 % (3.3-12.3)
[2018-11-01] MEDS: ZALEPLON PO SCH ×2 (06:00→21:00)
[2018-11-01 06:06] LABS: Bilirubin Total 0.3 mg/dL (0.2-1.0); Magnesium 2.2 mg/dL (1.8-2.4); Phosphorus 3.1 mg/dL (2.5-4.9); Potassium 4.3 mmol/L (3.5-5.1); Protein, Total 6.6 g/dL (6.4-8.2)
[2018-11-01] MEDS: PANTOPRAZOLE 40MG TABLET PO SCH (06:23)
[2018-11-01] MEDS: DULOXETINE 30 MG CAP PO SCH (09:06)
[2018-11-01] MEDS: ASPIRIN EC 81 MG TAB PO SCH (09:06)
[2018-11-01] MEDS: Levofloxacin 750mg IV 750 MG/150 ML BAG IV SCH (09:07)
[2018-11-01] MEDS: POLYETHYL GLY 3350 17 GM/DOSE PO SCH (09:07)
[2018-11-01] MEDS: clonazePAM 1 MG TAB PO SCH ×2 (09:07→20:00)
[2018-11-01] MEDS: FLUDROCORTISONE 0.1 MG TAB PO SCH (09:17)
[2018-11-01] MEDS: HYDROCORTISONE 10 MG TAB PO SCH ×2 (09:20→12:54)
--- NOTE | 2018-11-01 11:36 | EKG ---
Test Date: 2018-10-31 Test Time: 15:15:17 Sas Analyst: VANNESA MEASUREMENT RESULTS: Intervals: Rate: 78 NE: 168 QRSD: 88 QT: 382 QTc: 435 [place]: P: 42 NE: 168 QRS: -5 T: 66 INTERPRETIVE STATEMENTS: Normal sinus rhythm Moderate voltage criteria for LVH, may be normal variant Borderline ECG Compared to ECG 04/07/2018 16:59:02 Left ventricular hypertrophy now present Electronically Signed On 11-01-18 11:35:14 MANAGER [employer] by Doug Kee
--- NOTE | 2018-11-01 13:28 | P.PN ---
Subjective Date of Service: 11/01/18 Chief Complaint: UTI/Pneumonia Patient seen and examined at bedside with RN. Chart reviewed. Patient is doing much better than before. Assisted patient to get out of bed and sit on the chair. Did well overall. Pending urine culture at this time. Review of Systems 10-point ROS is otherwise unremarkable Physical Examination - Vital Signs Temperature: 99.8 F Blood Pressure: 131/62 Pulse: 82 Respirations: 16 Pulse Ox (%): 91 - Physical Exam General: Alert, In no apparent distress HEENT: Atraumatic, PERRLA, EOMI Neck: Supple, JVD not distended Respiratory: Clear to auscultation bilaterally, Normal air movement Cardiovascular: Regular rate/rhythm, Normal S1 S2 Gastrointestinal: Normal bowel sounds, No tenderness Musculoskeletal: No tenderness Integumentary: No rashes Neurological: Normal speech, Normal tone, Normal affect Lymphatics: No axilla or inguinal lymphadenopathy - Studies Laboratory Data (last 24 hrs) 10/31/18 14:30: PT 12.3, INR 1.04, APTT 32.9 10/31/18 14:30: WBC 15.7 H D, Hgb 10.5 L, Hct 31.4 L, Plt Count 282 D 10/31/18 14:30: Sodium 139, Potassium 4.0, BUN 10, Creatinine 0.80, Glucose 104 , Total Bilirubin 0.3, AST 12 L, ALT 24, Alkaline Phosphatase 100, Lipase 46 L Microbiology Data (last 24 hrs): 10/31/18 11:46 Nasopharnyx Influenza Type A Antigen Screen - Final 10/31/18 11:46 Nasopharnyx Influenza Type B Antigen Screen - Final 10/31/18 11:46 Throat Group A Streptococcus Rapid Screen - Final Medications List Reviewed: Yes Assessment And Plan - Current Problems (Diagnosis) (1) LLL pneumonia Onset Date: 11/01/18 Current Visit: Yes Status: Acute Plan: LLL PNA on xray -On IV Levaquin -Will continue -Sputum culture and Blood culture pending Qualifiers: Pneumonia type: due to unspecified organism Qualified Code(s): J18.1 - Lobar pneumonia, unspecified organism (2) UTI (urinary tract infection) Onset Date: 11/01/18 Current Visit: Yes Status: Acute Plan: Acute cystitis. 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 Does appear to have generalized weakness. Urine cultures pending as well. Will follow up with culture and PT recommendations at this time. Discharge Plan: Home Plan to discharge in: 48 Hours - Code Status/Comfort Care Code Status Assessed: Yes Critical Care: No
[2018-11-01] MEDS: PROMETHAZINE 25 MG TABLET PO PRN (18:21)
[2018-11-01] MEDS ORDERED: ESTRADIOL 2 MG PO SCH (21:00)
[2018-11-01] MEDS ORDERED: MELATONIN 5 MG TABLET PO SCH (21:00)
[2018-11-01] MEDS ORDERED: ROSUVASTATIN 10 MG TAB PO SCH (21:00)
[2018-11-01] MEDS: CALCIUM CARBONATE CHEW 500MG TAB PO PRN (21:58)
[2018-11-02] MEDS: OXYCODONE HCL 5 MG TAB PO PRN ×2 (03:24→09:45)
[2018-11-02] MEDS: ONDANSETRON 4 MG/2 ML VIAL IV PRN (03:24)
[2018-11-02] MEDS: CALCIUM CARBONATE CHEW 500MG TAB PO PRN (03:24)
[2018-11-02 06:28] LABS: Absolute Lymphocytes (CBC) 1.5 K/uL (0.7-4.9); Absolute Monocytes 0.5 K/uL (0.1-1.3); Absolute Neutrophil 7.2 K/uL (1.8-8.0); Basophils % 0.4 % (0-1.3); Eosinophils % 2.8 % (0-4.4); Hematocrit 36.8 % (36.0-45.0); Lymphocytes % 15.7 % (15.3-44.8); MCH 28.6 pg (27.0-35.0); MCV 85.6 fL (80-100); MPV 8.3 fL (7.6-11.3); Monocytes % 5.3 % (3.3-12.3)
[2018-11-02 06:43] LABS: Albumin 2.9 g/dL (3.4-5.0); Bilirubin Total 0.3 mg/dL (0.2-1.0); Potassium 3.8 mmol/L (3.5-5.1); Protein, Total 6.7 g/dL (6.4-8.2)
[2018-11-02] MEDS ORDERED: POTASSIUM CL SA 10 MEQ TAB PO ONE (06:49)
[2018-11-02] MEDS: PANTOPRAZOLE 40MG TABLET PO SCH (06:57)
[2018-11-02] MEDS: NA CHLORIDE 0.9% 1,000 ML IV SCH (08:00)
[2018-11-02] MEDS: Levofloxacin 750mg IV 750 MG/150 ML BAG IV SCH (09:00)
--- NOTE | 2018-11-02 09:16 | RAD REPORT ---
EXAM DESCRIPTION: Dasia Pa And Lat (2 Views)11/02/2018 6:47 am CLINICAL HISTORY: Cough COMPARISON: October 31 FINDINGS: No change in mild lingular opacities. A few areas of subsegmental atelectasis have develo ped within right base. The heart is normal size IMPRESSION: No change in a mild lingular pneumonia
[2018-11-02] MEDS ORDERED: POLYETHYL GLY 3350 17 GM/DOSE PO ONE (09:21)
[2018-11-02] MEDS: FLUDROCORTISONE 0.1 MG TAB PO SCH (09:47)
[2018-11-02] MEDS: ASPIRIN EC 81 MG TAB PO SCH (09:47)
[2018-11-02] MEDS: clonazePAM 1 MG TAB PO SCH (09:47)
[2018-11-02] MEDS: HYDROCORTISONE 10 MG TAB PO SCH ×2 (09:47→12:59)
[2018-11-02] MEDS: POLYETHYL GLY 3350 17 GM/DOSE PO SCH (09:47)
[2018-11-02] MEDS: DULOXETINE 30 MG CAP PO SCH (09:48)
[2018-11-02] MEDS ORDERED: NITROFURAN MACRO 100 MG CAP PO SCH (11:30)
--- NOTE | 2018-11-02 11:35 | RAD REPORT ---
EXAM DESCRIPTION: RAD - Abdomen 1 View (KUB) - 11/02/2018 11:18 am CLINICAL HISTORY: Abdominal pain, constipation COMPARISON: CT study October 20, KUB August 2014 FINDINGS: Similar to the CT study, the patient has a large stool volume distending the colon. This e xtends from cecum to the proximal sigmoid colon. Rectum and cecum are not distended. On the CT study there is an abrupt transition between the distended colon and the decompressed colon without mass raji ntifiable. A stricture at this site is possible. Stool volume in the descending colon appears to be d iminished somewhat from October 20. No small bowel dilatation. No free air or pneumatosis. No suspicious calcifications. No significant bony findings IMPRESSION: Large stool volume in the colon from cecum through descending colon. Descending colon st ool volume appears to have decreased since October 20 CT study. No abnormal rectum or sigmoid stool volume on this study. This matches the CT study. On the CT imagin g there was no mass or focal abnormality at the transition point between stool distended descending c olon and the decompressed sigmoid colon. No free air, pneumatosis or surgically emergent finding.
[2018-11-02 12:01] VITALS: O2SAT 92
[2018-11-02 12:52] VITALS: BP 110/49; TEMP 97.9
--- NOTE | 2018-11-02 14:39 | P.DS ---
Admission Date: 10/31/18 Discharge Date: 11/02/18 Primary Care Provider: Dr. Valladares; GI-Dr. Mitchell Disposition: ROUTINE DISCHARGE Discharge Condition: GOOD Reason for Admission: UTI/Pneumonia Consultations: None Procedures: CXR: COMPARISON: October 31 FINDINGS: No change in mild lingular opacities. A few areas of subsegmental atelectasis have developed within right base. The heart is normal size IMPRESSION: No change in a mild lingular pneumonia KUB: COMPARISON: CT study October 20, KUB August 2014 FINDINGS: Similar to the CT study, the patient has a large stool volume distending the colon. This extends from cecum to the proximal sigmoid colon. Rectum and cecum are not distended. On the CT study there is an abrupt transition between the distended colon and the decompressed colon without mass identifiable. A stricture at this site is possible. Stool volume in the descending colon appears to be diminished somewhat from October 20. No small bowel dilatation. No free air or pneumatosis. No suspicious calcifications. No significant bony findings IMPRESSION: Large stool volume in the colon from cecum through descending colon. Descending colon stool volume appears to have decreased since October 20 CT study. No abnormal rectum or sigmoid stool volume on this study. This matches the CT study. On the CT imaging there was no mass or focal abnormality at the transition point between stool distended descending colon and the decompressed sigmoid colon. No free air, pneumatosis or surgically emergent finding. Medical problem list: Left lingular pneumonia UTI, urine culture positive for E coli Chronic constipation Shoshone's disease Depression GERD Hyperlipidemia Urinary incontinence Chronic pain Chronic insomnia Brief History of Present Illness: 62-year-old female presented emergency room with shortness of breath. Patient found to have pneumonia. She was also identified to having a UTI. Patient was admitted for treatment. Hospital Course: Patient presented with shortness of breath. Patient found to have left lingular pneumonia. Patient was admitted for treatment. Patient did well in her stay. Patient did not require oxygen at discharge. At discharge she will continue with Levaquin 500 mg daily for 7 days. Recommendation to recheck chest x-ray in 2-4 weeks to monitor resolution. Patient also identified in having UTI. Urine culture positive for E coli. Patient with multiple allergies. At discharge she will continue with Macrobid 100 mg 1 pill twice daily for 7 days. UTI prevention will be provided. Patient has Bruce's disease. At discharge she will continue with her medication including Florinef 0.1 mg daily, Cortef 10 mg at noon and 10 mg daily. Recommendation is to follow up with her specialist. Patient has depression. Patient will continue with her medications including Cymbalta 60 mg daily and clonazepam 2 mg 1 pill twice daily. Further adjustment can be done by her PCP. Patient with chronic insomnia. Patient will continue with her medication. Patient with chronic pain 10 mg 1 pill 3 times a day. Patient will follow up with her chronic pain specialist to further monitor and address. Patient has GERD. Patient will continue with Prilosec 40 mg daily. Patient has hyperlipidemia. Patient will continue with Crestor 10 mg daily. Patient with chronic constipation. She is on a medication regimen of Miralax and docusate. KUB xray shows improvement from recent CT scan. Recommendation to follow up with her GI specialist to further monitor and address. Patient with chronic constipation likely related to her chronic pain medication. Vital Signs/Physical Exam: Temp Pulse Resp BP Pulse Ox 97.9 F 69 16 110/49 L 90 L 11/02/18 12:00 11/02/18 12:11/02/18 12:00 11/02/18 12:00 11/02/18 12:00 General: Alert, In no apparent distress, Cooperative HEENT: Atraumatic, Mucous membr. moist/pink Neck: Supple Respiratory: Clear to auscultation bilaterally, Normal air movement Cardiovascular: Normal pulses, Regular rate/rhythm Gastrointestinal: Normal bowel sounds, Soft and benign, No masses, No rebound, No guarding, Other (Patient with chronic constipation), Distended (Mild distention but soft without tenderness) Musculoskeletal: No erythema, No tenderness, No warmth Integumentary: No erythema, No warmth, No cyanosis Neurological: Normal speech, Normal strength at 5/5 x4 extr, Normal tone, Normal affect Laboratory Data at Discharge: WBC 9.5 K/uL (4.3-10.9) D 11/02/18 06:02 Hgb 12.3 g/dL (12.0-15.0) D 11/02/18 06:02 Hct 36.8 % (36.0-45.0) D 11/02/18 06:02 Plt Count 223 K/uL (152-406) 11/02/18 06:02 PT 12.3 SECONDS (9.5-12.5) 10/31/18 14:30 INR 1.04 10/31/18 14:30 APTT 32.9 SECONDS (24.3-36.9) 10/31/18 14:30 Sodium 140 mmol/L (136-145) 11/02/18 06:02 Potassium 3.8 mmol/L (3.5-5.1) 11/02/18 06:02 BUN 8 mg/dL (7-18) 11/02/18 06:02 Creatinine 0.70 mg/dL (0.55-1.3) 11/02/18 06:02 Glucose 76 mg/dL (74-106) 11/02/18 06:02 Phosphorus 3.1 mg/dL (2.5-4.9) 11/01/18 05:28 Magnesium 2.2 mg/dL (1.8-2.4) 11/01/18 05:28 Total Bilirubin 0.3 mg/dL (0.2-1.0) 11/02/18 06:02 AST 16 U/L (15-37) 11/02/18 06:02 ALT 20 U/L (12-78) 11/02/18 06:02 Alkaline Phosphatase 101 U/L (45-117) 11/02/18 06:02 Lipase 46 U/L (73-393) L 10/31/18 14:30 Home Medications: Amitriptyline HCl 100 mg PO BEDTIME 09/07/16 Aspirin [Aspir-Low] 81 mg PO DAILY 09/07/16 Estradiol 2 mg PO BEDTIME 09/07/16 Fludrocortisone [Florinef *] 0.1 mg PO DAILY 09/07/16 Hydrocortisone [Cortef*] 10 mg PO NOON 02/28/18 Melatonin 10 mg PO BEDTIME 02/28/18 Oxycodone HCl 10 mg PO TID 02/28/18 Polyethylene Glycol 3350 [Clearlax] 17 gm PO DAILY 02/28/18 Rosuvastatin [Crestor*] 10 mg PO BEDTIME 02/28/18 Valerian Root Extract [Valerian] 150 mg PO PRN PRN 02/28/18 Duloxetine [Cymbalta *] 60 mg PO DAILY 04/08/18 Hydrocortisone [Cortef*] 20 mg PO DAILY 04/08/18 Omeprazole [Prilosec] 40 mg PO DAILY 04/08/18 Promethazine HCl 1 tab PO Q6H PRN 10/31/18 Zaleplon 2 cap PO BEDTIME 10/31/18 clonazePAM [Clonazepam] 1 tab PO BID 10/31/18 Levofloxacin [Levaquin] 500 mg PO DAILY #7 tablet 11/02/18 Nitrofuran Macro [Macrobid*] 100 mg PO BID #14 cap 11/02/18 New Medications: Levofloxacin [Levaquin] 500 mg PO DAILY #7 tablet Nitrofuran Macro [Macrobid*] 100 mg PO BID #14 cap Patient Discharge Instructions: 1. Follow up with PCP in one week to followup this hospitalization. 2. Patient presented with shortness of breath. Patient found to have left lingular pneumonia. Patient was admitted for treatment. Patient did well in her stay. Patient did not require oxygen at discharge. At discharge she will continue with Levaquin 500 mg daily for 7 days. Recommendation to recheck chest x-ray in 2-4 weeks to monitor resolution. 3. Patient also identified in having UTI. Urine culture positive for E coli. Patient with multiple allergies. At discharge she will continue with Macrobid 100 mg 1 pill twice daily for 7 days. UTI prevention will be provided. 4. Patient has Shoshone's disease. At discharge she will continue with her medication including Florinef 0.1 mg daily, Cortef 10 mg at noon and 10 mg daily. Recommendation is to follow up with her specialist. 5. Patient has depression. Patient will continue with her medications including Cymbalta 60 mg daily and clonazepam 2 mg 1 pill twice daily. Further adjustment can be done by her PCP. 6. Patient with chronic insomnia. Patient will continue with her medication. 7. Patient with chronic pain 10 mg 1 pill 3 times a day. Patient will follow up with her chronic pain specialist to further monitor and address. 8. Patient has GERD. Patient will continue with Prilosec 40 mg daily. 9. Patient has hyperlipidemia. Patient will continue with Crestor 10 mg daily. 10. Patient with chronic constipation. She is on a medication regimen of Miralax and docusate. KUB xray shows improvement from recent CT scan. Recommendation to follow up with her GI specialist to further monitor and address. Patient with chronic constipation likely related to her chronic pain medication. Diet: AHA Activity: Ad hossein Time spent managing pt's care (in minutes): 55
[2018-11-02] MEDS: PROMETHAZINE 25 MG TABLET PO PRN (15:06)
[2018-11-03] MEDS ORDERED: DOCUSATE NA 100 MG CAP PO SCH (09:00)
== END 2018-11-02 16:48 | disposition home or self-care (01) ==
LOC: ER 11:38 → ERHOLD 15:56 → 4TH 19:37
PROVIDERS: ADMIT Family Medicine; ATTEND Hospitalist
DX: J18.9 Pneumonia, unspecified organism (principal); N39.0 Urinary tract infection, site not specified; B96.20 Unspecified Escherichia coli [E. coli] as the cause of diseases classified elsewhere; E27.1 Primary adrenocortical insufficiency; F32.9 Major depressive disorder, single episode, unspecified; F51.04 Psychophysiologic insomnia; K21.9 Gastro-esophageal reflux disease without esophagitis; G89.29 Other chronic pain; E78.5 Hyperlipidemia, unspecified; K59.09 Other constipation; Z88.0 Allergy status to penicillin; Z88.2 Allergy status to sulfonamides
CPT/HCPCS: 36415 ×2; 71046 ×2; 74018; 80048; 80053 ×2; 80076; 82550; 82553; 83605; 83690; 83735; 84100; 84145; 84484; 85025 ×3; 85610; 85730; 87040 ×2; 87070; 87077; 87081; 87086; 87088; 87186; 87804 ×2; 93005; 94760 ×3; 96365; 97162; 99285; G0378 ×2; J2405 ×3; J7030 ×4; 81003; 81015

== ENCOUNTER 2019-01-17 17:03 | Emergency (ER) | payer OTHER ==
--- OUTSIDE RECORDS SUMMARY | 2019-01-17 17:05 | XMS REPORT ---
:1955 [facility] Address [address] [place]hu [address] [place] [id number] Care Team Providers Name Role Phone Unavailable Unavailable Unavailable Problems This patient has no known problems. Allergies, Adverse Reactions, Alerts This patient has no known allergies or adverse reactions. Medications This patient has no known medications.
--- NOTE | 2019-01-17 18:44 | ER ---
Nurse's Notes [facility] Name: Dulce Cerna Age: 63 yrs Sex: Female : 1955 Arrival Date: 01/17/2019 Time: 17:06 Bed 5 Private MD: Brayan Valladares E Diagnosis: Contusion of middle finger without damage to nail-right Presentation: 01/17 17:06 Presenting complaint: Patient states: "my middle finger got caught between the gas hook aa5 up and a truck". Pt c/o pain, bruising, and swelling to right middle finger. 17:06 Transition of care: patient was not received from another setting of care. Risk aa5 Assessment: Do you want to hurt yourself or someone else? Patient reports no desire to harm self or others. Care prior to arrival: None. 17:06 Method Of Arrival: Ambulatory aa5 17:06 Acuity: TRACY 4 aa5 17:23 Onset of symptoms was January 17, 2019 at 14:14. Initial Sepsis Screen: Does the pc1 patient meet any 2 criteria?. Initial Sepsis Screen: Does the patient have a suspected source of infection? No. Patient's initial sepsis screen is negative. Triage Assessment: 17:24 General: Appears uncomfortable, well groomed, Behavior is calm, cooperative. Injury pc1 Description: Bruise sustained to Right third didget Crush injury sustained to Right third didget. Historical: - Allergies: 17:08 PENICILLINS; aa5 17:08 Sulfa (Sulfonamide Antibiotics); aa5 - PMHx: 17:08 addisons; Chronic pain; Irritable bowel syndrome; TIA; aa5 - PSHx: 17:08 Hysterectomy; Appendectomy; Cholecystectomy; ; aa5 - Immunization history:: Adult Immunizations unknown. - Social history:: Smoking status: Patient/guardian denies using tobacco, never smoked. - Ebola Screening: : No symptoms or risks identified at this time. - Family history:: not pertinent. Screenin:23 Abuse screen: Denies threats or abuse. Denies injuries from another. Nutritional pc1 screening: No deficits noted. Tuberculosis screening: No symptoms or risk factors identified. Fall Risk None identified. Assessment: 17:21 Pain: Complains of pain in right third didget Pain does not radiate. Pain currently is pc1 6 out of 10 on a pain scale. Pain began 1 hour ago. Alleviated by rest, Aggravated by increased activity. Musculoskeletal: No deficits noted. 18:20 Reassessment: Patient and/or family updated on plan of care and expected duration. Pain hj level reassessed. Patient is alert, oriented x 3, equal unlabored respirations, skin warm/dry/pink. XRAY taken; awaiting result and POC;. Vital Signs: 17:18 BP 130 / 62; Pulse 86; Resp 17; Temp 98.1; Pulse Ox 99% on R/A; pc1 18:33 BP 128 / 60; Pulse 85; Resp 18; Pulse Ox 100% on R/A; hj ED Course: 17:06 Patient arrived in ED. mr 17:06 Brayan Valladares MD is Private Physician. mr 17:06 Arm band placed on Patient placed in an exam room, on a stretcher. aa5 17:10 Bill Dougherty, ROYAL is Primary Nurse. 17:13 Fletcher Pruitt MD is Attending Physician. [facility] 17:13 Triage completed. aa5 17:26 Patient has correct armband on for positive identification. Bed in low position. Call pc1 light in reach. Side rails up X 1. 18:05 Hand Right 3 View XRAY In Process Unspecified. EDMS 18:43 Brayan Valladares MD is Referral Physician. [facility] 18:44 Dimas Meng MD is Referral Physician. [facility] 18:51 No provider procedures requiring assistance completed. Patient did not have IV access hj during this emergency room visit. Administered Medications: No medications were administered Outcome: 18:44 Discharge ordered by . [facility] 18:51 Discharged to home ambulatory, with family. 18:51 Condition: stable 18:51 Discharge instructions given to patient, family, Instructed on discharge instructions, follow up and referral plans. medication usage, splint care Demonstrated understanding of instructions, follow-up care, splint care, Prescriptions given X 1. 18:52 Attestation : i agree with the assessment and notes of SN Adam. 18:52 Patient left the ED. Signatures: Dispatcher [employer] EDDE Fletcher Pruitt MD MD cha Rivera, Mary mr TrevinoCherise, RN RN aa5 Bill Dougherty, José Villa RN [facility]
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
--- NOTE | 2019-01-17 18:55 | RAD REPORT ---
EXAM DESCRIPTION: RAD - Hand Right 3 View - 01/17/2019 6:05 pm CLINICAL HISTORY: Hand pain primarily middle finger COMPARISON: None. FINDINGS: No fracture is identified. There is no dislocation or periosteal reaction noted. Mild elia nt space narrowing at the first MCP joint. The remaining MCP joints and IP joints show no significant joint space narrowing, spurring or erosion change. Radiocarpal joint space is minimally narrowed. No air or foreign body in the soft tissues. No soft tissue abnormality at the third digit. IMPRESSION: Mild degenerative change as detailed. No acute bone or soft tissue finding seen.
[2019-01-17 19:00] VITALS: TEMP 98.1
[2019-01-17 19:02] VITALS: BP 128/60; O2SAT 100
== END 2019-01-17 18:52 | disposition home or self-care (01) ==
LOC: ER 17:03
DX: S60.031A Contusion of right middle finger without damage to nail, initial encounter (principal); X58.XXXA Exposure to other specified factors, initial encounter; Y93.9 Activity, unspecified; Y92.9 Unspecified place or not applicable; Z88.0 Allergy status to penicillin; Z88.2 Allergy status to sulfonamides
CPT/HCPCS: 99283

== ENCOUNTER 2019-03-16 17:06 | Observation (INO) | payer OTHER ==
--- OUTSIDE RECORDS SUMMARY | 2019-03-16 17:09 | XMS REPORT ---
:1955 [facility] Address [address] [place] [place] [id number] Care Team Providers Name Role Phone Unavailable Unavailable Unavailable Problems This patient has no known problems. Allergies, Adverse Reactions, Alerts This patient has no known allergies or adverse reactions. Medications This patient has no known medications.
--- NOTE | 2019-03-16 18:37 | RAD REPORT ---
EXAM DESCRIPTION: RAD - Chest Single View - 03/16/2019 6:26 pm CLINICAL HISTORY: Cough COMPARISON: October 2018 TECHNIQUE: AP portable chest image was obtained 1824 hours . FINDINGS: Lungs are clear. Heart and vasculature are normal. No measurable pleural effusion and no p neumothorax. No acute bony abnormality seen. No acute aortic findings suspected. IMPRESSION: No acute cardiopulmonary process.
[2019-03-16 18:58] LABS: Absolute Lymphocytes (CBC) 1.7 K/uL (0.7-4.9); Absolute Monocytes 0.5 K/uL (0.1-1.3); Absolute Neutrophil 6.5 K/uL (1.8-8.0); Basophils % 0.6 % (0-1.3); Eosinophils % 4.2 % (0-4.4); Hematocrit 31.1 % (36.0-45.0); Lymphocytes % 18.8 % (15.3-44.8); MPV 8.6 fL (7.6-11.3); Monocytes % 5.1 % (3.3-12.3); RBC Red Blood Cell Count 3.69 M/uL (3.86-4.86)
[2019-03-16 19:02] LABS: Protime INR 1.05
[2019-03-16 19:17] LABS: ALT/SGPT 22 U/L (12-78); AST/SGOT 16 U/L (15-37); Albumin 3.1 g/dL (3.4-5.0); Alkaline Phosphatase 106 U/L (45-117); BUN Blood Urea Nitrogen 7 mg/dL (7-18); Bicarbonate 29 mmol/L (21-32); Bilirubin Direct 0.1 mg/dL (0-0.2); Bilirubin Total 0.3 mg/dL (0.2-1.0); Glucose Level 66 mg/dL (74-106); Lipase 46 U/L (73-393); Magnesium 1.8 mg/dL (1.8-2.4); NT PRO-BNP 32 pg/mL (<125); Potassium 3.4 mmol/L (3.5-5.1); Protein, Total 6.8 g/dL (6.4-8.2); Sodium Level 142 mmol/L (136-145); Troponin (Emerg Dept Use Only) < 0.02 ng/mL (0.0-0.045)
[2019-03-16] MEDS ORDERED: FAMOTIDINE 20 MG/2 ML VIAL IV ONE (19:31)
[2019-03-16] MEDS ORDERED: NA CHLORIDE 0.9% 1,000 ML ONE (19:31)
[2019-03-16] MEDS ORDERED: HYDROCORTISONE SUC 100 MG INJ ONE (19:31)
[2019-03-16] MEDS ORDERED: ONDANSETRON 4 MG/2 ML VIAL ONE ×2 (19:49→22:32)
--- NOTE | 2019-03-16 20:55 | RAD REPORT ---
EXAM DESCRIPTION: CT - Abdomen Pelvis W Contrast - 03/16/2019 8:31 pm CLINICAL HISTORY: Abdominal pain. COMPARISON: None. TECHNIQUE: Computed axial tomography of the abdomen and pelvis was obtained. 100 cc Isovue-300 is ad ministered intravenously. Oral contrast was given. All CT scans are performed using dose optimization technique as appropriate and may include automated exposure control or mA/KV adjustment according to patient size. FINDINGS: Cholecystectomy. Chronic pneumobilia. The liver, spleen, pancreas, adrenals and left kidney appear unremarkable. Nonobstructing 17 millimet er right renal calculus. Small umbilical hernia contains fat The wall of portions of the transverse, descending and sigmoid colon are mildly to moderately thicken ed consistent with colitis. Pneumatosis intestinalis is not seen. IMPRESSION: Mild to moderate colitis
--- NOTE | 2019-03-16 21:15 | ER ---
Nurse's Notes [facility] Name: Dulce Cerna Age: 63 yrs Sex: Female : 1955 Arrival Date: 03/16/2019 Time: 17:11 Bed 7 Private MD: Diagnosis: Dehydration;Colitis;Adrenal Insufficiency Presentation: 03/16 17:12 Presenting complaint: Patient states: Shakiness, sore throat, confusion and upper abd ss pressure that began at approximately 0800 this morning. PT states that this has happened multiple times in the past, but is unsure what it was. "I believe it's my [place]'s." EMS reports that patient did not take any of her medications besides one steroid tablet today. Transition of care: patient was not received from another setting of care. Onset of symptoms was March 16, 2019. Risk Assessment: Do you want to hurt yourself or someone else? Patient reports no desire to harm self or others. Initial Sepsis Screen: Does the patient meet any 2 criteria? No. Patient's initial sepsis screen is negative. Does the patient have a suspected source of infection? No. Patient's initial sepsis screen is negative. Care prior to arrival: None. 17:12 Method Of Arrival: EMS: [facility] ss 17:12 Acuity: TRACY 3 ss Historical: - Allergies: 17:20 PENICILLINS; ss 17:20 Sulfa (Sulfonamide Antibiotics); ss - Home Meds: 17:20 fludrocort 0.1 mg 1 tab DAILY [Active]; omeprazole 40 mg Oral cpDR 1 cap once daily ss [Active]; rosuvastatin 10 mg oral tab 1 tab once daily [Active]; estradiol 2 mg Oral tab 1 tab once daily [Active]; clonazepam 1 mg Oral tab 1 tab BID PRN [Active]; promethazine 25 mg Oral tab 1 tab BID PRN [Active]; duloxetine DR 60 mg PO in the AM [Active]; amitriptyline 100 mg Oral tab 1 tab "1 or 2 tablets at bedtime" [Active]; zaleplon 5 mg oral cap 1 cap "1 or 2 tablets at bedtime." [Active]; oxycodone 10 mg Oral tab 1 tab three times a day [Active]; tizanidine 2 mg oral tab twice a day [Active]; - PMHx: 17:20 addisons; Chronic pain; Irritable bowel syndrome; TIA; ss - PSHx: 17:20 Hysterectomy; Appendectomy; Cholecystectomy; ; ss - Social history:: Smoking status: Patient/guardian denies using tobacco. - Ebola Screening: : No symptoms or risks identified at this time. Screenin:30 Abuse screen: Denies threats or abuse. Denies injuries from another. Nutritional ph screening: No deficits noted. Tuberculosis screening: No symptoms or risk factors identified. Fall Risk None identified. Assessment: 17:45 General: Appears in no apparent distress. uncomfortable, Behavior is calm, cooperative, ph appropriate for age, Denies fever. Pain: Complains of pain in epigastric area and left upper quadrant and right upper quadrant. Neuro: Level of Consciousness is awake, alert, obeys commands, Oriented to person, place, time, situation, Reports weakness "shakiness". Cardiovascular: Capillary refill < 3 seconds in bilateral fingers Patient's skin is warm and dry. Respiratory: Airway is patent Respiratory effort is even, unlabored, Respiratory pattern is regular, symmetrical, Breath sounds are clear bilaterally. GI: Abdomen is round Bowel sounds present X 4 quads. Abdomen is tender to palpation in epigastric area, right upper quadrant and left upper quadrant Reports nausea, Patient currently denies diarrhea, vomiting. EENT: Throat is reddened has enlarged tonsils Reports pain when swallowing. Derm: Skin is intact, is healthy with good turgor, Skin is pink, warm \\T\\ dry. Musculoskeletal: Circulation, motion, and sensation intact. Range of motion: intact in all extremities. 19:48 General: Appears in no apparent distress. Behavior is calm, cooperative, appropriate ea for age. Pain: Complains of pain in epigastric area. Neuro: Level of Consciousness is awake, alert, obeys commands, Oriented to person, place, time, situation. Cardiovascular: Patient's skin is warm and dry. Respiratory: Airway is patent Respiratory effort is even, unlabored, Respiratory pattern is regular, symmetrical, Breath sounds are clear bilaterally. Derm: Skin is pink, warm \\T\\ dry. Musculoskeletal: Circulation, motion, and sensation intact. 20:30 Reassessment: Patient and/or family updated on plan of care and expected duration. Pain ea level reassessed. Patient is alert, oriented x 3, equal unlabored respirations, skin warm/dry/pink. 21:00 Reassessment: Patient and/or family updated on plan of care and expected duration. Pain ea level reassessed. Patient is alert, oriented x 3, equal unlabored respirations, skin warm/dry/pink. 23:00 Reassessment: Patient and/or family updated on plan of care and expected duration. Pain ea level reassessed. Patient is alert, oriented x 3, equal unlabored respirations, skin warm/dry/pink. 23:13 Reassessment: Report given to Matthew PAIGE on second floor. ea Vital Signs: 17:20 BP 143 / 55; Pulse 79; Resp 19; Temp 98.6(O); Pulse Ox 98% on R/A; Weight 81.65 kg; ss Height 5 ft. 2 in. (157.48 cm); Pain 08/10; 18:20 BP 147 / 57; Pulse 76; Resp 18; Pulse Ox 99% on R/A; ph 19:28 BP 154 / 65; Pulse 70; Resp 18; Pulse Ox 98% on R/A; ph 20:00 BP 129 / 61; Pulse 70; Resp 18; Pulse Ox 97% on R/A; ea 21:00 BP 135 / 66; Pulse 68; Resp 18; Pulse Ox 97% on R/A; ea 22:50 BP 143 / 70; Pulse 66; Resp 18; Pulse Ox 99% on R/A; ea 17:20 Body Mass Index 32.92 (81.65 kg, 157.48 cm) ED Course: 17:11 Patient arrived in ED. ss 17:13 Triage completed. ss 17:16 Cyn Pitts, ROYAL is Primary Nurse. ph 17:20 Arm band placed on right wrist. ss 17:21 Fletcher Pruitt MD is Attending Physician. christ 18:24 XRAY Chest (1 view) In Process Unspecified. EDMS 18:55 Inserted saline lock: 20 gauge in left EJ, using aseptic technique. ,using aseptic ss technique. insertion by CARLYN Erazo Blood collected. Patient maintains SpO2 saturation greater than 95% on room air. 19:31 Patient has correct armband on for positive identification. Bed in low position. Call ph light in reach. Side rails up X 1. Pulse ox on. NIBP on. Warm blanket given. 19:52 Kaushal Camarena PA is PHCP. jr8 20:30 CT Abd/Pelvis - W/Contrast In Process Unspecified. EDMS 21:13 Estella Mcdonnell MD is Hospitalizing Provider. jr8 23:13 Patient admitted, IV remains in place. ea 23:23 No provider procedures requiring assistance completed. ea Administered Medications: 19:26 Drug: Solu-CORTEF 100 mg Route: IVP; Site: left jugular; ph 19:48 Follow up: Response: No adverse reaction ea 20:00 Follow up: Response: No adverse reaction ea 19:27 Drug: Pepcid 20 mg Route: IVP; Site: left jugular; ph 19:47 Follow up: Response: No adverse reaction ea 20:00 Follow up: Response: No adverse reaction ea 19:28 Drug: NS 0.9% 1000 ml Route: IV; Rate: 125 ml/hr; Site: left jugular; ph 23:17 Follow up: IV Status: Infusion continued upon admission; IV Intake: 425ml ea 19:46 Drug: Zofran 4 mg {Note: left EJ.} Route: IVP; Site: Other; ea 20:00 Follow up: Response: No adverse reaction; Marked relief of symptoms ea 20:10 Follow up: Response: No adverse reaction; Nausea is decreased ea 21:36 Drug: Potassium Chloride 20 mEq Route: PO; ea 22:37 Follow up: Response: No adverse reaction ea 21:37 Drug: Cipro 400 mg {Note: left EJ.} Volume: 200 ml; Route: IVPB; Infused Over: 60 mins; ea Site: Other; 22:37 Follow up: Response: No adverse reaction; IV Status: Completed infusion; IV Intake: ea 100ml 21:40 Drug: Flagyl 500 mg {Note: left EJ.} Volume: 100 ml; Route: IVPB; Rate: 200 ml/hr; ea Infused Over: 30 mins; Site: Other; 22:20 Follow up: Response: No adverse reaction; IV Status: Completed infusion; IV Intake: ea 100ml 22:32 Drug: morphine 4 mg {Note: left EJ.} Route: IVP; Site: Other; ea 23:00 Follow up: Response: No adverse reaction; Marked relief of symptoms ea 22:34 Drug: Zofran 4 mg {Note: left EJ.} Route: IVP; Site: Other; ea 23:00 Follow up: Response: No adverse reaction; Marked relief of symptoms ea Point of Care Testing: Blood Glucose: 20:09 Blood Glucose: 78 mg/dL; ea Ranges: Intake: 22:20 IV: 100ml; Total: 100ml. ea 22:37 IV: 100ml; Total: 200ml. ea 23:17 IV: 425ml; Total: 625ml. ea Outcome: 21:14 Decision to Hospitalize by Provider. yobany 21:35 Instructed on the need for admit. ea 23:23 Admitted to Med/surg accompanied by tech, room 209, with chart, Report called to Landon killian RN 23:24 Condition: stable ea 23:25 Patient left the ED. ea Signatures: Dispatcher [employer] EDMS Fletcher Pruitt MD MD cha Smirch, Shelby, RN RN Kaushal Claros PA PA jr8 Hall, Patricia, RN RN Quynh Hale RN RN ea Corrections: (The following items were deleted from the chart) 17:21 17:20 BP 143 / 55; Pulse 79bpm; Resp 19bpm; Pulse Ox 98% RA; 81.65 kg; Height 5 ft. 2 ss in.; BMI: 32.9; Pain 08/10; ss
--- NOTE | 2019-03-16 21:15 | EDPHYS ---
Physician Documentation [facility] Name: Dulce Cerna Age: 63 yrs Sex: Female : 1955 Arrival Date: 03/16/2019 Time: 17:11 Bed 7 Private MD: ED Physician Fletcher Pruitt HPI: 03/16 17:58 This 63 yrs old Female presents to ER via EMS with complaints of Sore Throat, christ SHAKINESS/ CONFUSION. 17:58 The patient presents with sore throat. christ Historical: - Allergies: 17:20 PENICILLINS; ss 17:20 Sulfa (Sulfonamide Antibiotics); ss - Home Meds: 17:20 fludrocort 0.1 mg 1 tab DAILY [Active]; omeprazole 40 mg Oral cpDR 1 cap once daily ss [Active]; rosuvastatin 10 mg oral tab 1 tab once daily [Active]; estradiol 2 mg Oral tab 1 tab once daily [Active]; clonazepam 1 mg Oral tab 1 tab BID PRN [Active]; promethazine 25 mg Oral tab 1 tab BID PRN [Active]; duloxetine DR 60 mg PO in the AM [Active]; amitriptyline 100 mg Oral tab 1 tab "1 or 2 tablets at bedtime" [Active]; zaleplon 5 mg oral cap 1 cap "1 or 2 tablets at bedtime." [Active]; oxycodone 10 mg Oral tab 1 tab three times a day [Active]; tizanidine 2 mg oral tab twice a day [Active]; - PMHx: 17:20 addisons; Chronic pain; Irritable bowel syndrome; TIA; ss - PSHx: 17:20 Hysterectomy; Appendectomy; Cholecystectomy; ; ss - Social history:: Smoking status: Patient/guardian denies using tobacco. - Ebola Screening: : No symptoms or risks identified at this time. ROS: 17:59 Constitutional: Negative for fever, chills, and weight loss, Eyes: Negative for injury, christ pain, redness, and discharge, Neck: Negative for injury, pain, and swelling, Cardiovascular: Negative for chest pain, palpitations, and edema, Respiratory: Negative for shortness of breath, cough, wheezing, and pleuritic chest pain, Back: Negative for injury and pain, : Negative for injury, bleeding, discharge, and swelling, MS/Extremity: Negative for injury and deformity, Neuro: Negative for headache, weakness, numbness, tingling, and seizure, Psych: Negative for depression, anxiety, suicide ideation, homicidal ideation, and hallucinations, Allergy/Immunology: Negative for hives, rash, and allergies, Endocrine: Negative for neck swelling, polydipsia, polyuria, polyphagia, and marked weight changes, Hematologic/Lymphatic: Negative for swollen nodes, abnormal bleeding, and unusual bruising. 17:59 ENT: Positive for sore throat. 17:59 Abdomen/GI: Positive for abdominal pain, of the right upper quadrant and left upper quadrant. Exam: 17:59 Constitutional: This is a well developed, well nourished patient who is awake, alert, christ and in no acute distress. Head/Face: Normocephalic, atraumatic. Eyes: Pupils equal round and reactive to light, extra-ocular motions intact. Lids and lashes normal. Conjunctiva and sclera are non-icteric and not injected. Cornea within normal limits. Periorbital areas with no swelling, redness, or edema. Neck: Trachea midline, no thyromegaly or masses palpated, and no cervical lymphadenopathy. Supple, full range of motion without nuchal rigidity, or vertebral point tenderness. No Meningismus. Chest/axilla: Normal chest wall appearance and motion. Nontender with no deformity. No lesions are appreciated. Cardiovascular: Regular rate and rhythm with a normal S1 and S2. No gallops, murmurs, or rubs. Normal PMI, no JVD. No pulse deficits. Respiratory: Lungs have equal breath sounds bilaterally, clear to auscultation and percussion. No rales, rhonchi or wheezes noted. No increased work of breathing, no retractions or nasal flaring. Back: No spinal tenderness. No costovertebral tenderness. Full range of motion. Female : Normal external genitalia. MS/ Extremity: Pulses equal, no cyanosis. Neurovascular intact. Full, normal range of motion. Neuro: Awake and alert, GCS 15, oriented to person, place, time, and situation. Cranial nerves II-XII grossly intact. Motor strength 5/5 in all extremities. Sensory grossly intact. Cerebellar exam normal. Normal gait. Psych: Awake, alert, with orientation to person, place and time. Behavior, mood, and affect are within normal limits. 17:59 ENT: Posterior pharynx: Airway: normal, no evidence of obstruction, Tonsils: are normal in appearance, Uvula: normal, midline. 17:59 Abdomen/GI: Inspection: distension, Bowel sounds: normal, Palpation: mild abdominal tenderness, in the epigastric area, right upper quadrant and left upper quadrant, Liver: no appreciated palpable abnormalities, Hernia: not appreciated. Vital Signs: 17:20 BP 143 / 55; Pulse 79; Resp 19; Temp 98.6(O); Pulse Ox 98% on R/A; Weight 81.65 kg; ss Height 5 ft. 2 in. (157.48 cm); Pain 08/10; 18:20 BP 147 / 57; Pulse 76; Resp 18; Pulse Ox 99% on R/A; ph 19:28 BP 154 / 65; Pulse 70; Resp 18; Pulse Ox 98% on R/A; ph 20:00 BP 129 / 61; Pulse 70; Resp 18; Pulse Ox 97% on R/A; ea 21:00 BP 135 / 66; Pulse 68; Resp 18; Pulse Ox 97% on R/A; ea 22:50 BP 143 / 70; Pulse 66; Resp 18; Pulse Ox 99% on R/A; ea 17:20 Body Mass Index 32.92 (81.65 kg, 157.48 cm) MDM: 17:21 Patient medically screened. [facility] 18:03 Data reviewed: vital signs, nurses notes, lab test result(s), EKG, radiologic studies, [facility] CT scan, plain films. 19:52 Data interpreted: Pulse oximetry: on room air is 98 %. Interpretation: normal. [facility] 21:09 Counseling: I had a detailed discussion with the patient and/or guardian regarding: the [facility] historical points, exam findings, and any diagnostic results supporting the discharge/admit diagnosis, lab results, radiology results, the need for further work-up and treatment in the hospital. Response to treatment: the patient's symptoms have mildly improved after treatment. 21:13 Physician consultation: Estella Mcdonnell MD was called at 21:13, was contacted at 21:13, [facility] regarding admission, to the medical/surgical unit. consult, patient's condition, and will see patient. 03/16 17:53 Order name: Basic Metabolic Panel [facility] 03/16 17:53 Order name: CBC with Diff [facility] 03/16 17:53 Order name: LFT's [facility] 03/16 17:53 Order name: Magnesium [facility] 03/16 17:53 Order name: NT PRO-BNP [facility] 03/16 17:53 Order name: PT-INR; Complete Time: 19:18 [facility] 03/16 17:53 Order name: Troponin (emerg Dept Use Only); Complete Time: 19:53 [facility] 03/16 17:53 Order name: Lipase; Complete Time: 19:53 [facility] 03/16 17:53 Order name: Urine Culture [facility] 03/16 17:53 Order name: Type And Screen; Complete Time: 19:53 [facility] 03/16 17:54 Order name: Basic Metabolic Panel; Complete Time: 19:53 [facility] 03/16 17:54 Order name: CBC with Automated Diff; Complete Time: 19:18 [facility] 03/16 17:54 Order name: Liver (Hepatic) Function; Complete Time: 19:53 [facility] 03/16 17:54 Order name: Magnesium; Complete Time: 19:53 [facility] 03/16 17:53 Order name: XRAY Chest (1 view); Complete Time: 19:18 [facility] 03/16 17:54 Order name: NT PRO-BNP; Complete Time: 19:53 [facility] 03/16 17:58 Order name: Strep; Complete Time: 19:18 [facility] 03/16 18:04 Order name: CT Abd/Pelvis - W/Contrast; Complete Time: 20:59 [facility] 03/16 19:07 Order name: Throat Culture [facility] 03/16 22:45 Order name: CBC with Automated Diff [facility] 03/16 22:45 Order name: CBC with Automated Diff [facility] 03/16 22:45 Order name: Comprehensive Metabolic Panel [facility] 03/16 22:45 Order name: Comprehensive Metabolic Panel [facility] 03/16 23:11 Order name: Urine Dipstick--Ancillary (enter results) [facility] 03/16 17:53 Order name: EKG; Complete Time: 17:54 [facility] 03/16 17:53 Order name: Cardiac monitoring; Complete Time: 19:04 [facility] 03/16 17:53 Order name: EKG - Nurse/Tech; Complete Time: 19:04 [facility] 03/16 17:53 Order name: IV Saline Lock; Complete Time: 19:04 [facility] 03/16 17:53 Order name: Labs collected and sent; Complete Time: 19:04 [facility] 03/16 17:53 Order name: O2 Per Protocol; Complete Time: 19:04 [facility] 03/16 17:53 Order name: O2 Sat Monitoring; Complete Time: 19:04 [facility] 03/16 17:53 Order name: Urine Dipstick-Ancillary (obtain specimen); Complete Time: 23:17 [facility] 03/16 19:53 Order name: Glucose Level; Complete Time: 20:08 jr8 03/16 22:45 Order name: CONS Pharmacy Consult [facility] 03/16 22:45 Order name: CONS Physician Consult [facility] 03/16 22:45 Order name: Clear Liquid EDMS Administered Medications: 19:26 Drug: Solu-CORTEF 100 mg Route: IVP; Site: left jugular; ph 19:48 Follow up: Response: No adverse reaction ea 20:00 Follow up: Response: No adverse reaction ea 19:27 Drug: Pepcid 20 mg Route: IVP; Site: left jugular; ph 19:47 Follow up: Response: No adverse reaction ea 20:00 Follow up: Response: No adverse reaction ea 19:28 Drug: NS 0.9% 1000 ml Route: IV; Rate: 125 ml/hr; Site: left jugular; ph 23:17 Follow up: IV Status: Infusion continued upon admission; IV Intake: 425ml ea 19:46 Drug: Zofran 4 mg {Note: left EJ.} Route: IVP; Site: Other; ea 20:00 Follow up: Response: No adverse reaction; Marked relief of symptoms ea 20:10 Follow up: Response: No adverse reaction; Nausea is decreased ea 21:36 Drug: Potassium Chloride 20 mEq Route: PO; ea 22:37 Follow up: Response: No adverse reaction ea 21:37 Drug: Cipro 400 mg {Note: left EJ.} Volume: 200 ml; Route: IVPB; Infused Over: 60 mins; ea Site: Other; 22:37 Follow up: Response: No adverse reaction; IV Status: Completed infusion; IV Intake: ea 100ml 21:40 Drug: Flagyl 500 mg {Note: left EJ.} Volume: 100 ml; Route: IVPB; Rate: 200 ml/hr; ea Infused Over: 30 mins; Site: Other; 22:20 Follow up: Response: No adverse reaction; IV Status: Completed infusion; IV Intake: ea 100ml 22:32 Drug: morphine 4 mg {Note: left EJ.} Route: IVP; Site: Other; ea 23:00 Follow up: Response: No adverse reaction; Marked relief of symptoms ea 22:34 Drug: Zofran 4 mg {Note: left EJ.} Route: IVP; Site: Other; ea 23:00 Follow up: Response: No adverse reaction; Marked relief of symptoms ea Point of Care Testing: Blood Glucose: 20:09 Blood Glucose: 78 mg/dL; ea Ranges: Critical Glucose Levels:Adult <50 mg/dl or >400 mg/dl <40 mg/dl or >180 mg/dl Disposition: 03/16/19 21:14 Hospitalization ordered by Estella Mcdonnell for Inpatient Admission. Preliminary diagnosis are Dehydration, Colitis, Adrenal Insufficiency. - Bed requested for Telemetry/MedSurg (Inpatient). - Status is Inpatient Admission. ea - Condition is Stable. - Problem is new. - Symptoms have improved. UTI on Admission? No Addendum: 03/23/2019 06:18 Co-signature as Attending Physician, Fletcher Pruitt MD I agree with the assessment and c garibay plan of care. Signatures: Dispatcher [employer] EDAL Brenda Arias RN RN mw Anderson, Corey, MD MD cha Smirch, Shelby, RN RN ss Roszak, Josh, PA PA [id number] Cyn Pitts RN RN ph Antunez, Elena, RN RN ea Corrections: (The following items were deleted from the chart) 03/16 22:47 21:14 Hospitalization Ordered by Estella Mcdonnell MD for Inpatient Admission. Preliminary diagnosis is Dehydration; Colitis; Adrenal Insufficiency. Bed requested for Telemetry/MedSurg (Inpatient). Status is Inpatient Admission. Condition is Stable. Problem is new. Symptoms have improved. UTI on Admission? No. [email or web address] 23:25 22:47 03/16/2019 21:14 Hospitalization Ordered by Estella Mcdonnell MD for Inpatient ea Admission. Preliminary diagnosis is Dehydration; Colitis; Adrenal Insufficiency. Bed requested for Telemetry/MedSurg (Inpatient). Status is Inpatient Admission. Condition is Stable. Problem is new. Symptoms have improved. UTI on Admission? No. jenni
[2019-03-16] MEDS ORDERED: CIPROFLOXACIN 400mg IV 400 MG/200 ML BAG IV ONE (21:34)
[2019-03-16] MEDS ORDERED: POTASSIUM CL SA 10 MEQ TAB PO ONE (21:34)
[2019-03-16] MEDS ORDERED: METRONIDAZOLE 500mg IVPB 500 MG/100 ML BAG IV ONE (21:35)
[2019-03-16] MEDS ORDERED: MORPHINE 4 MG/ML SYR ONE (22:32)
[2019-03-16] MEDS ORDERED: ACETAMINOPHEN 500 MG TAB PO PRN (22:41)
[2019-03-16] MEDS: NA CHLORIDE 0.9% 1,000 ML IV SCH (23:00)
[2019-03-16 23:18] LABS: Urine Blood NEGATIVE (NEG); Urine Glucose NEGATIVE (NEG); Urine Protein NEGATIVE (NEG)
[2019-03-16 23:41] VITALS: BMI 30.3
[2019-03-17] MEDS ORDERED: AMITRIPTYLINE 50 MG TAB PO PRN (02:04)
[2019-03-17] MEDS: ONDANSETRON 4 MG/2 ML VIAL IV PRN ×3 (03:36→20:05)
[2019-03-17] MEDS: MORPHINE 2 MG/ML SYR IV PRN ×2 (03:36→08:26)
[2019-03-17] MEDS: NA CHLORIDE 0.9% 1,000 ML IV SCH ×2 (05:35→20:07)
[2019-03-17 06:19] LABS: Absolute Lymphocytes (CBC) 1.7 K/uL (0.7-4.9); Absolute Monocytes 0.4 K/uL (0.1-1.3); Basophils % 0.9 % (0-1.3); Eosinophils % 0.8 % (0-4.4); Hematocrit 29.8 % (36.0-45.0); Lymphocytes % 16.5 % (15.3-44.8); MPV 9.1 fL (7.6-11.3); Monocytes % 4.1 % (3.3-12.3); RBC Red Blood Cell Count 3.56 M/uL (3.86-4.86)
[2019-03-17 06:28] LABS: Bilirubin Total 0.2 mg/dL (0.2-1.0); Potassium 3.8 mmol/L (3.5-5.1); Protein, Total 6.6 g/dL (6.4-8.2)
[2019-03-17 07:00] LABS: Blood Morphology Comment NOT SEEN (NOT SEEN); Platelet Estimate ADEQ; Urine White Blood Cell Casts OK
[2019-03-17] MEDS: Levofloxacin500mg IV 500 MG/100 ML BAG IV SCH (08:24)
[2019-03-17] MEDS: METRONIDAZOLE 500mg IVPB 500 MG/100 ML BAG IV SCH ×2 (08:25→16:44)
--- NOTE | 2019-03-17 10:44 | P.PN ---
Subjective Date of Service: 03/17/19 Subjective: Tolerating diet (Liquid Diet for now), Ambulating, Improving, Working w/ PT, Doing well Review of Systems 10-point ROS is otherwise unremarkable Physical Examination - Vital Signs Temperature: 97.6 F Blood Pressure: 137/65 Pulse: 63 Respirations: 18 Pulse Ox (%): 95 - Physical Exam General: Alert, In no apparent distress HEENT: Atraumatic, PERRLA, EOMI Neck: Supple, JVD not distended Respiratory: Clear to auscultation bilaterally, Normal air movement Cardiovascular: Regular rate/rhythm, Normal S1 S2 Gastrointestinal: Normal bowel sounds, Tenderness (Generalized tenderness worse on the LLQ ) Musculoskeletal: No tenderness Integumentary: No rashes Neurological: Normal speech, Normal tone, Normal affect Lymphatics: No axilla or inguinal lymphadenopathy - Studies Laboratory Data (last 24 hrs) 03/16/19 18:47: PT 12.4, INR 1.05 03/16/19 18:47: WBC 9.1, Hgb 10.3 L, Hct 31.1 L, Plt Count 238 03/16/19 18:47: Sodium 142, Potassium 3.4 L, BUN 7, Creatinine 0.65, Glucose 66 L, Magnesium 1.8, Total Bilirubin 0.3, AST 16, ALT 22, Alkaline Phosphatase 106 , Lipase 46 L Microbiology Data (last 24 hrs): 03/16/19 18:47 Throat Group A Streptococcus Rapid Screen - Final Medications List Reviewed: Yes Assessment And Plan - Current Problems (Diagnosis) (1) Colitis Current Visit: Yes Status: Acute Plan: Pt with abdominal Pain and Nausea. Abd CT with Colitis. Pt with H.o IBS -IV levaquin and flagyl for now -GI consulted. Awaiting reccs -Continue IV abx for next 24hrs and then switch to PO -FLD advance as directed (2) [place] disease Onset Date: 09/08/16 Current Visit: No Status: Chronic Plan: Restarted on home medication of Flurocortisone and steriods (3) GERD (gastroesophageal reflux disease) Current Visit: No Status: Chronic Qualifiers: Esophagitis presence: without esophagitis Qualified Code(s): K21.9 - Gastro -esophageal reflux disease without esophagitis (4) Hyperlipidemia Onset Date: 11/01/18 Current Visit: No Status: Chronic Qualifiers: Hyperlipidemia type: mixed hyperlipidemia Qualified Code(s): E78.2 - Mixed hyperlipidemia - Plan Pending Clinical Improvement and GI consultation. continue with IV abx for now Discharge Plan: Home Plan to discharge in: 24 Hours - Code Status/Comfort Care Code Status Assessed: Yes Critical Care: No
--- NOTE | 2019-03-17 11:05 | P.HP ---
Certification for Inpatient Patient admitted to: Inpatient With expected LOS: >2 Midnights Practitioner: I am a practitioner with admitting privileges, knowledge of patient current condition, hospital course, and medical plan of care. Services: Services provided to patient in accordance with Admission requirements found in Title 42 Section 412.3 of the Code of Federal Regulations Patient History Date of Service: 03/16/19 Reason for admission: abdominal pain History of Present Illness: Patient is a 63-year-old female who came to the hospital with abdominal pain. Patient has been having nausea and vomiting for the last 24 hr. Patient states her symptoms started with severe abdominal discomfort. Pain was mainly in the lower abdominal quadrants. Her patient had a large bowel movement which was purely diarrhea about 24 hr ago. Shortly after this her abdominal symptoms started. She has not had any other diarrhea since that time. She does have a history of irritable bowel syndrome. She had a colonoscopy done a couple years ago which did not reveal any abnormality except a colon polyp. She has been having fever. At this time will keep her NPO and reassess her in a.m.. She follows up with Gastroenterology, Dr. Mitchell who will be consulted. She will be admitted to the hospital for further workup. Allergies Penicillins Allergy (Verified 03/16/19 23:40) Shortness of breath Sulfa (Sulfonamide Antibiotics) [Sulfa(Sulfonamide Antibiotics)] Allergy ( Verified 03/16/19 23:40) Shortness of breath NSAIDS Adverse Reaction (Uncoded 03/16/19 23:40) Kidney Problems Home Medications: Amitriptyline [Elavil] 100 mg PO BEDTIME 03/17/19 Duloxetine HCl [Cymbalta] 90 mg PO DAILY 03/17/19 Estradiol [Estrace] 2 mg PO BEDTIME 03/17/19 Fludrocortisone [Florinef] 0.1 mg PO DAILY 03/17/19 Hydrocortisone [Cortef] 20 mg PO BIDL 03/17/19 Omeprazole [Prilosec] 40 mg PO DAILY 03/17/19 Oxycodone HCl [Oxycodone HCl ER] 10 mg PO TID 03/17/19 Promethazine HCl 25 mg PO BIDP PRN 03/17/19 Rosuvastatin [Crestor] 10 mg PO BEDTIME 03/17/19 Tizanidine HCl 2 mg PO BIDP PRN 03/17/19 Zaleplon 10 mg PO BEDTIME 03/17/19 clonazePAM [Clonazepam] 1 mg PO BIDP PRN 03/17/19 - Past Medical/Surgical History Has patient received pneumonia vaccine in the past: Yes Diabetic: No -: [place]'s -: Irritable Bowel Syndrome -: TIA -: Chronic back pain -: Cholecystectomy -: Appy -: -: Hysterectomy -: Explore Lap - Family History Mother Medical History: Cancer, Other (see notes) Notes: Asthma. Rheumatoid Arthritis - Social History Smoking Status: Former smoker Alcohol use: No CD- Drugs: Yes Caffeine use: No Place of Residence: Home Review of Systems 10-point ROS is otherwise unremarkable Physical Examination - Vital Signs Temperature: 97.6 F Blood Pressure: 137/65 Pulse: 63 Respirations: 18 Pulse Ox (%): 95 - Physical Exam General: Alert, In no apparent distress, Oriented x3 HEENT: Atraumatic, PERRLA, Mucous membr. moist/pink, EOMI, Sclerae nonicteric Neck: Supple, 2+ carotid pulse no bruit, No LAD, Without JVD or thyroid abnormality Respiratory: Clear to auscultation bilaterally, Normal air movement Cardiovascular: Regular rate/rhythm, Normal S1 S2, No murmurs Gastrointestinal: Normal bowel sounds, Soft and benign, No rebound, No guarding , Distended, Tenderness Musculoskeletal: No clubbing, No swelling, No tenderness Integumentary: No rashes Neurological: Normal gait, Normal speech, Normal strength at 5/5 x4 extr, Normal tone, Sensation intact, Cranial nerves 3-12 intact, Normal affect Lymphatics: No axilla or inguinal lymphadenopathy - Studies Laboratory Data (last 24 hrs) 03/16/19 18:47: PT 12.4, INR 1.05 03/16/19 18:47: WBC 9.1, Hgb 10.3 L, Hct 31.1 L, Plt Count 238 03/16/19 18:47: Sodium 142, Potassium 3.4 L, BUN 7, Creatinine 0.65, Glucose 66 L, Magnesium 1.8, Total Bilirubin 0.3, AST 16, ALT 22, Alkaline Phosphatase 106 , Lipase 46 L Microbiology Data (last 24 hrs): 03/16/19 18:47 Throat Group A Streptococcus Rapid Screen - Final Assessment & Plan - Problems (Diagnosis) (1) Colitis Current Visit: Yes Status: Acute (2) [place] disease Onset Date: 09/08/16 Current Visit: No Status: Chronic (3) Chronic pain Onset Date: 11/01/18 Current Visit: No Status: Chronic Qualifiers: (4) Depression with anxiety Current Visit: No Status: Chronic (5) GERD (gastroesophageal reflux disease) Current Visit: No Status: Chronic Qualifiers: Esophagitis presence: without esophagitis Qualified Code(s): K21.9 - Gastro -esophageal reflux disease without esophagitis (6) Hyperlipidemia Onset Date: 11/01/18 Current Visit: No Status: Chronic Qualifiers: Hyperlipidemia type: mixed hyperlipidemia Qualified Code(s): E78.2 - Mixed hyperlipidemia (7) Irritable bowel disease Onset Date: 04/08/18 Current Visit: No Status: Chronic Qualifiers: - Plan Plan: 1. IV fluids and IV antibiotics 2. Stool studies 3. GI consultation 4. Pain control 5. Outpatient colonoscopy 6. Repeat abdominal film if pain worsens 7. GI and DVT prophylaxis Discharge Plan: Home Plan to discharge in: Greater than 2 days - Advance Directives Does patient have a Living Will: Yes Does patient have a Durable POA for Healthcare: Yes - Code Status/Comfort Care Code Status Assessed: Yes Code Status: Full Code Critical Care: No Time Spent Managing PTS Care (In Minutes): 45
[2019-03-17] MEDS: HYDROCORTISONE 10 MG TAB PO SCH (16:42)
[2019-03-17] MEDS ORDERED: TRAMADOL HCL 50 MG TAB PO ONE (19:00)
[2019-03-17] MEDS ORDERED: ROSUVASTATIN 10 MG TAB PO SCH (21:00)
[2019-03-17] MEDS ORDERED: ESTRADIOL 2 MG PO SCH (21:00)
[2019-03-17] MEDS ORDERED: AMITRIPTYLINE 50 MG TAB PO SCH (21:00)
[2019-03-17 23:58] VITALS: O2SAT 94
[2019-03-18] MEDS: METRONIDAZOLE 500mg IVPB 500 MG/100 ML BAG IV SCH ×2 (00:51→09:03)
[2019-03-18] MEDS: ONDANSETRON 4 MG/2 ML VIAL IV PRN ×2 (04:45→11:46)
[2019-03-18] MEDS: NA CHLORIDE 0.9% 1,000 ML IV SCH (04:47)
[2019-03-18] MEDS ORDERED: clonazePAM 1 MG TAB PO PRN (05:28)
[2019-03-18] MEDS ORDERED: OXYCODONE *CR* 10 MG TAB PO PRN (05:29)
[2019-03-18] MEDS ORDERED: OXYCODONE *CR* 10 MG TAB PO SCH ×2 (07:00→09:00)
[2019-03-18] MEDS ORDERED: DULOXETINE 30 MG CAP PO SCH (09:00)
[2019-03-18] MEDS ORDERED: FLUDROCORTISONE 0.1 MG TAB PO SCH (09:00)
[2019-03-18] MEDS: HYDROCORTISONE 10 MG TAB PO SCH (09:04)
[2019-03-18 09:15] VITALS: BP 160/74; TEMP 98.2
[2019-03-18] MEDS: Levofloxacin500mg IV 500 MG/100 ML BAG IV SCH (10:15)
--- NOTE | 2019-03-18 12:42 | P.SSS ---
Patient History Date of Service: 03/18/19 Reason for admission: abdominal pain History of Present Illness: Patient is a 63-year-old female who came to the hospital with abdominal pain. Patient has been having nausea and vomiting for the last 24 hr. Patient states her symptoms started with severe abdominal discomfort. Pain was mainly in the lower abdominal quadrants. Her patient had a large bowel movement which was purely diarrhea about 24 hr ago. Shortly after this her abdominal symptoms started. She has not had any other diarrhea since that time. She does have a history of irritable bowel syndrome. She had a colonoscopy done a couple years ago which did not reveal any abnormality except a colon polyp. She has been having fever. At this time will keep her NPO and reassess her in a.m.. She follows up with Gastroenterology, Dr. Mitchell who will be consulted. She will be admitted to the hospital for further workup. Allergies Penicillins Allergy (Verified 03/16/19 23:40) Shortness of breath Sulfa (Sulfonamide Antibiotics) [Sulfa(Sulfonamide Antibiotics)] Allergy ( Verified 03/16/19 23:40) Shortness of breath NSAIDS Adverse Reaction (Uncoded 03/16/19 23:40) Kidney Problems Home Medications: Amitriptyline [Elavil*] 100 mg PO BEDTIME 03/17/19 Duloxetine HCl [Cymbalta] 90 mg PO DAILY 03/17/19 Estradiol [Estrace] 2 mg PO BEDTIME 03/17/19 Fludrocortisone [Florinef *] 0.1 mg PO DAILY 03/17/19 Hydrocortisone [Cortef*] 20 mg PO BIDL 03/17/19 Omeprazole [Prilosec] 40 mg PO DAILY 03/17/19 Promethazine HCl 25 mg PO BIDP PRN 03/17/19 Rosuvastatin [Crestor*] 10 mg PO BEDTIME 03/17/19 Tizanidine HCl 2 mg PO BIDP PRN 03/17/19 Zaleplon 10 mg PO BEDTIME 03/17/19 clonazePAM [Clonazepam] 1 mg PO BIDP PRN 03/17/19 Ciprofloxacin/Ciprofloxa HCl [Ciprofloxacin 500 mg ER Tablet] 500 mg PO DAILY # 10 tbmp.24hr 03/18/19 metroNIDAZOLE [Flagyl] 500 mg PO Q6H #40 tablet 03/18/19 - Past Medical/Surgical History Has patient received pneumonia vaccine in the past: Yes 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 Rheumatoid Arthritis - Social History Smoking Status: Former smoker Alcohol use: No CD- Drugs: Yes Caffeine use: No Place of Residence: Home Review of Systems 10-point ROS is otherwise unremarkable Physical Examination - Vital Signs Temperature: 98.2 F Blood Pressure: 160/74 Pulse: 70 Respirations: 17 Pulse Ox (%): 96 - Physical Exam General: Alert, In no apparent distress HEENT: Atraumatic, PERRLA, Mucous membr. moist/pink, EOMI, Sclerae nonicteric Neck: Supple, 2+ carotid pulse no bruit, No LAD, Without JVD or thyroid abnormality Respiratory: Clear to auscultation bilaterally, Normal air movement Cardiovascular: Regular rate/rhythm, Normal S1 S2 Gastrointestinal: Normal bowel sounds, No tenderness Musculoskeletal: No tenderness Integumentary: No rashes Neurological: Normal gait, Normal speech, Normal strength at 5/5 x4 extr, Normal tone, Normal affect Lymphatics: No axilla or inguinal lymphadenopathy - Studies Microbiology Data (last 24 hrs): 03/16/19 18:47 Throat Culture & Sensitivity - Final 03/16/19 22:55 Clean Catch Urine Overton Count - Final 03/16/19 22:55 Clean Catch Urine - Final - Diagnosis (Problem(s)) (1) Colitis Current Visit: Yes Status: Acute (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 Patient was started on IV antibiotics with Cipro and Flagyl and had marked improvement in her symptoms in 1st 24 hr. The patient does have history recurrent colitis secondary to IBS. Patient does follow up with GI outpatient. GI was consulted here in the hospital who agreed with the plan. Patient initially was kept NPO and was eventually advanced to a clear liquid diet and then to GI soft. Both of which patient tolerated well without having any abdominal pain, nausea or vomiting. At that time patient was then discharged home under stable condition was switched over to oral antibiotics to be continued at home. Patient was asked to take Cipro and Flagyl for a total of 10 days after discharge and to follow up with GI primary care doctor in about 1-2 days post discharge. Patient a misunderstanding and this was discharged home under stable condition - Disposition Disposition: ROUTINE DISCHARGE Condition: GOOD Diet: Regular Activity: Ad hossein
== END 2019-03-18 13:50 | disposition home or self-care (01) ==
LOC: ER 17:06 → INTOOBSV 23:13 → ERHOLD 23:13 → 2ND 23:14
PROVIDERS: ADMIT Hospitalist; ATTEND Hospitalist
DX: K52.9 Noninfective gastroenteritis and colitis, unspecified (principal); E27.1 Primary adrenocortical insufficiency; F41.8 Other specified anxiety disorders; K58.9 Irritable bowel syndrome, unspecified; K21.9 Gastro-esophageal reflux disease without esophagitis; E78.5 Hyperlipidemia, unspecified; Z88.0 Allergy status to penicillin; Z88.2 Allergy status to sulfonamides; Z86.73 Personal history of transient ischemic attack (TIA), and cerebral infarction without residual deficits
CPT/HCPCS: 36415; 71045; 74177; 80048; 80053; 80076; 81003; 82962; 83690; 83735; 83880; 84484; 85025; 85610; 86850; 86900; 86901; 87070; 87081; 87086; 87088; 97116; 97163; 97530; 99285; G0378; J0744; J1720; J2270; J2405; J7030; Q9967

== ENCOUNTER 2019-03-19 09:52 | Inpatient (IN) | payer OTHER ==
--- OUTSIDE RECORDS SUMMARY | 2019-03-19 09:53 | XMS REPORT ---
:1955 [facility] Address [address] Sidhu [address] [place] [id number] Care Team Providers Name Role Phone Unavailable Unavailable Unavailable Problems This patient has no known problems. Allergies, Adverse Reactions, Alerts This patient has no known allergies or adverse reactions. Medications This patient has no known medications.
[2019-03-19] MEDS ORDERED: IBUPROFEN 400 MG TAB ONE (10:46)
[2019-03-19] MEDS ORDERED: IBUPROFEN 200 MG TAB PO ONE (10:46)
[2019-03-19 11:15] LABS: Absolute Lymphocytes (CBC) 0.6 K/uL (0.7-4.9); Absolute Monocytes 0.5 K/uL (0.1-1.3); Absolute Neutrophil 14.1 K/uL (1.8-8.0); Basophils % 0.2 % (0-1.3); Eosinophils % 1.2 % (0-4.4); Hematocrit 32.6 % (36.0-45.0); Lymphocytes % 3.7 % (15.3-44.8); MPV 8.7 fL (7.6-11.3); Monocytes % 3.3 % (3.3-12.3); RBC Red Blood Cell Count 3.84 M/uL (3.86-4.86)
[2019-03-19] MEDS ORDERED: NA CHLORIDE 0.9% 1,000 ML ONE (11:20)
[2019-03-19 11:29] LABS: Potassium 3.2 mmol/L (3.5-5.1)
[2019-03-19 12:11] LABS: Blood Morphology Comment NOT SEEN (NOT SEEN); Platelet Estimate ADEQ; Urine White Blood Cell Casts OK
[2019-03-19 12:32] LABS: Urine Blood NEGATIVE (NEG); Urine Glucose NEGATIVE (NEG); Urine Protein NEGATIVE (NEG); Urine Specific Gravity 1.015 (1.005-1.030)
[2019-03-19] MEDS ORDERED: ONDANSETRON 4 MG/2 ML VIAL ONE (13:00)
[2019-03-19] MEDS ORDERED: MORPHINE 4 MG/ML SYR ONE (13:00)
--- NOTE | 2019-03-19 13:29 | RAD REPORT ---
EXAM DESCRIPTION: CT - Abdomen Pelvis Wo Contrast - 03/19/2019 1:14 pm CLINICAL HISTORY: Abdominal pain COMPARISON: March 16, 2019 TECHNIQUE: Computed axial tomography of the abdomen and pelvis was obtained. IV was not requested. O ral contrast was given. Coronal reconstructions performed. All CT scans are performed using dose optimization technique as appropriate and may include automated exposure control or mA/KV adjustment according to patient size. FINDINGS: The evaluation of solid organs and vessels is limited secondary to the lack of contrast a dministration. Mild to moderate tree-in-bud opacities have developed within the lower lobes Mild thickening of portions of the descending colon wall. Sigmoid colonic wall normal caliber. No other significant change IMPRESSION: Mild to moderate tree-in-bud opacities within the lower lobes may indicate an atypical i nfection Improvement in the colitis which is now mild
--- NOTE | 2019-03-19 13:44 | ER ---
Nurse's Notes [facility] Name: Dulce Cerna Age: 63 yrs Sex: Female : 1955 Arrival Date: 03/19/2019 Time: 09:52 Bed 7 Private MD: Brayan Valladares E Diagnosis: Pneumonia, unspecified organism Presentation: 03/19 10:11 Presenting complaint: Significant other states: d/c from hospital yesterday, dx with iw colitis and was prescribed with antibiotics, started running fever this morning, also wa more disoriented and weak this morning, increased epigastric and abd pain this morning. Transition of care: patient was not received from another setting of care. Onset of symptoms was March 19, 2019. Risk Assessment: Do you want to hurt yourself or someone else? Patient reports no desire to harm self or others. Initial Sepsis Screen: Does the patient meet any 2 criteria? RR > 20 per min. Temp <36.0*C (96.8*F)) or > 38.3*C (100.9*F). Yes Does the patient have a suspected source of infection? No. Patient's initial sepsis screen is negative. Care prior to arrival: Medication(s) given: Tylenol, 1000 mg, at 0830. 10:11 Method Of Arrival: Wheelchair iw 10:11 Acuity: TRACY 2 iw Triage Assessment: 10:20 General: Appears in no apparent distress. uncomfortable, obese, Behavior is bp cooperative, appropriate for age, anxious. Pain: Complains of pain in abdomen diffusely. EENT: No deficits noted. Neuro: Reports headache. Cardiovascular: Rhythm is sinus rhythm. Respiratory: Airway is patent Respiratory effort is even, unlabored, Respiratory pattern is regular, symmetrical. GI: Reports lower abdominal pain, upper abdominal pain. : No signs and/or symptoms were reported regarding the genitourinary system. Derm: No deficits noted. Musculoskeletal: Circulation, motion, and sensation intact. Range of motion: intact in all extremities. Historical: - Allergies: 10:19 PENICILLINS; iw 10:19 Sulfa (Sulfonamide Antibiotics); iw - Home Meds: 10:19 amitriptyline 100 mg Oral tab 1 tab "1 or 2 tablets at bedtime" [Active]; clonazepam 1 iw mg Oral tab 1 tab BID PRN [Active]; duloxetine DR 60 mg PO in the AM [Active]; estradiol 2 mg Oral tab 1 tab once daily [Active]; fludrocort 0.1 mg 1 tab DAILY [Active]; omeprazole 40 mg Oral cpDR 1 cap once daily [Active]; oxycodone 10 mg Oral tab 1 tab three times a day [Active]; promethazine 25 mg Oral tab 1 tab BID PRN [Active]; rosuvastatin 10 mg Oral tab 1 tab once daily [Active]; tizanidine 2 mg Oral tab twice a day [Active]; zaleplon 5 mg Oral tab 1 cap "1 or 2 tablets at bedtime." [Active]; - PMHx: 10:19 addisons; Chronic pain; Irritable bowel syndrome; TIA; iw - PSHx: 10:19 Hysterectomy; Appendectomy; Cholecystectomy; ; iw - Immunization history:: Adult Immunizations up to date. - Ebola Screening: : Patient negative for fever greater than or equal to 101.5 degrees Fahrenheit, and additional compatible Ebola Virus Disease symptoms Patient denies exposure to infectious person Patient denies travel to an Ebola-affected area in the 21 days before illness onset No symptoms or risks identified at this time. - Social history:: Smoking status: Patient/guardian denies using tobacco. Screenin:45 Abuse screen: Denies threats or abuse. Denies injuries from another. Nutritional bp screening: No deficits noted. Tuberculosis screening: No symptoms or risk factors identified. Fall Risk None identified. Assessment: 10:20 General: SEE TRIAGE NOTE. bp 11:19 Reassessment: PT DRINKING PO CONTRAST. bp 11:52 Reassessment: PO CONTRAST COMPLETE, CT NOTIFIED. bp 12:53 Reassessment: CT PENDING, PT OUT OF BED TO B/S COMMODE. bp Vital Signs: 10:10 BP 104 / 84; Pulse 98; Resp 22 S; Temp 103.2(O); Pulse Ox 91% on R/A; Weight 81.65 kg; iw Height 5 ft. 2 in. (157.48 cm); Pain 9/10; 11:15 BP 126 / 54; Pulse 86; Resp 18; Temp 100(O); Pulse Ox 92% ; bp 11:53 BP 129 / 50; Pulse 87; Resp 18; Pulse Ox 92% ; bp 12:53 BP 122 / 52; Pulse 87; Resp 14; Pulse Ox 90% ; bp 10:10 Body Mass Index 32.92 (81.65 kg, 157.48 cm) iw ED Course: 09:52 Patient arrived in ED. as 09:52 Brayan Valladares MD is Private Physician. as 09:55 Jillian Banda FNP-C [facility]. kb 09:55 Brad Hernández MD is Attending Physician. kb 10:12 Moustapha Gomez, ROYAL is Primary Nurse. bp 10:15 Arm band placed on. bp 10:18 Triage completed. iw 10:27 Radiology exam delayed due to lab results not completed at this time. bq 10:45 Patient has correct armband on for positive identification. Bed in low position. Call bp light in reach. Side rails up X2. Adult w/ patient. 11:15 Inserted saline lock: 18 gauge in right EJ, using aseptic technique. Blood collected. bp 13:[address] mw3 13:12 CT completed. Patient tolerated procedure well. Patient moved back from CT. mw3 13:14 CT Abd/Pelvis - Without Cont In Process Unspecified. EDMS 13:43 Cecilia Vital MD is Hospitalizing Provider. kb 13:55 No provider procedures requiring assistance completed. Patient admitted, IV remains in bp place. 14:00 CT completed. Patient tolerated procedure well. Patient moved to CT. kw1 14:10 Patient moved back from CT. kw1 Administered Medications: 10:36 Drug: Ibuprofen 600 mg Route: PO; hj 11:21 Follow up: Response: Temperature is decreased bp 11:15 Drug: NS 0.9% 1000 ml Route: IV; Rate: 1000 ml; Site: right jugular; bp 13:36 Follow up: IV Status: Completed infusion; IV Intake: 1000ml bp 12:47 Drug: morphine 4 mg Route: IVP; Site: right jugular; bp 13:35 Follow up: Response: Pain is decreased bp 12:47 Drug: Zofran 4 mg Route: IVP; Site: right jugular; bp 13:35 Follow up: Response: Pain is decreased bp 14:36 Drug: Rocephin 1 grams Route: IV; Rate: calculated rate; Site: right jugular; bp 15:24 Follow up: IV Status: Completed infusion; IV Intake: 20ml bp Intake: 13:36 IV: 1000ml; Total: 1000ml. bp 15:24 IV: 20ml; Total: 1020ml. bp Outcome: 13:43 Decision to Hospitalize by Provider. kb 15:23 Admitted to Med/surg accompanied by tech, via wheelchair, room 207, with chart, Report bp called to SAMARA RN 15:23 Condition: stable 15:23 Instructed on the need for admit. 15:25 Patient left the ED. bp Signatures: Dispatcher [employer] EDMS Jillian Banda, KALEB-Kd LABORATORY MECHANICAL TECHNICIAN-Cely Blanchard Amelia as Williams, Irene, RN RN iw Bill Dougherty RN RN hj Peltier, Brian, ROYAL RN bp Nasreen Rangel kw1 Jesusita Foster mw3 Corrections: (The following items were deleted from the chart) 11:16 11:15 Temp 100F Oral; hj bp
--- NOTE | 2019-03-19 13:44 | EDPHYS ---
Physician Documentation [facility] Name: Dulce Cerna Age: 63 yrs Sex: Female : 1955 Arrival Date: 03/19/2019 Time: 09:52 Bed 7 Private MD: Brayan Valladares E ED Physician Brad Hernández HPI: 03/19 11:18 This 63 yrs old Female presents to ER via Wheelchair with complaints of Fever.kb 11:18 The patient reports fever, that was measured at 102 degrees Fahrenheit, with an kb emergency department temperature of 103.2 degrees Fahrenheit. Onset: The symptoms/episode began/occurred this morning. Modifying factors: there are no obvious modifying factors. Associated signs and symptoms: Pertinent positives: abdominal pain. Severity of symptoms: At their worst the symptoms were moderate in the emergency department the symptoms are unchanged. The patient has not experienced similar symptoms in the past. The patient has been recently been admitted at [facility], was discharged yesterday, for similar complaints. Pt reports she was admitted for colitis and discharged yesterday. States she felt great yesterday, but this morning woke up with fever. Pt had not had fever prior to now. 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 Denies cough, congestion, chest pain, shortness of breath. . Historical: - Allergies: 10:19 PENICILLINS; iw 10:19 Sulfa (Sulfonamide Antibiotics); iw - Home Meds: 10:19 amitriptyline 100 mg Oral tab 1 tab "1 or 2 tablets at bedtime" [Active]; clonazepam 1 iw mg Oral tab 1 tab BID PRN [Active]; duloxetine DR 60 mg PO in the AM [Active]; estradiol 2 mg Oral tab 1 tab once daily [Active]; fludrocort 0.1 mg 1 tab DAILY [Active]; omeprazole 40 mg Oral cpDR 1 cap once daily [Active]; oxycodone 10 mg Oral tab 1 tab three times a day [Active]; promethazine 25 mg Oral tab 1 tab BID PRN [Active]; rosuvastatin 10 mg Oral tab 1 tab once daily [Active]; tizanidine 2 mg Oral tab twice a day [Active]; zaleplon 5 mg Oral tab 1 cap "1 or 2 tablets at bedtime." [Active]; - PMHx: 10:19 addisons; Chronic pain; Irritable bowel syndrome; TIA; iw - PSHx: 10:19 Hysterectomy; Appendectomy; Cholecystectomy; ; iw - Immunization history:: Adult Immunizations up to date. - Ebola Screening: : Patient negative for fever greater than or equal to 101.5 degrees Fahrenheit, and additional compatible Ebola Virus Disease symptoms Patient denies exposure to infectious person Patient denies travel to an Ebola-affected area in the 21 days before illness onset No symptoms or risks identified at this time. - Social history:: Smoking status: Patient/guardian denies using tobacco. ROS: 11:14 ENT: Negative for injury, pain, and discharge, Neck: Negative for injury, pain, and kb swelling, Cardiovascular: Negative for chest pain, palpitations, and edema, Respiratory: Negative for shortness of breath, cough, wheezing, and pleuritic chest pain, Back: Negative for injury and pain, MS/Extremity: Negative for injury and deformity, Skin: Negative for injury, rash, and discoloration, Neuro: Negative for headache, weakness, numbness, tingling, and seizure. 11:14 Constitutional: Positive for fever, Negative for body aches, chills, fatigue, malaise, poor PO intake, weight loss. 11:14 Abdomen/GI: Positive for abdominal pain, abdominal distension. Exam: 11:17 Constitutional: This is a well developed, well nourished patient who is awake, alert, kb and in no acute distress. Head/Face: Normocephalic, atraumatic. ENT: Nares patent. No nasal discharge, no septal abnormalities noted. Tympanic membranes are normal and external auditory canals are clear. Oropharynx with no redness, swelling, or masses, exudates, or evidence of obstruction, uvula midline. Mucous membranes moist. Neck: Trachea midline, no thyromegaly or masses palpated, and no cervical lymphadenopathy. Supple, full range of motion without nuchal rigidity, or vertebral point tenderness. No Meningismus. Chest/axilla: Normal chest wall appearance and motion. Nontender with no deformity. No lesions are appreciated. Cardiovascular: Regular rate and rhythm with a normal S1 and S2. No gallops, murmurs, or rubs. Normal PMI, no JVD. No pulse deficits. Respiratory: Lungs have equal breath sounds bilaterally, clear to auscultation and percussion. No rales, rhonchi or wheezes noted. No increased work of breathing, no retractions or nasal flaring. Skin: Warm, dry with normal turgor. Normal color with no rashes, no lesions, and no evidence of cellulitis. MS/ Extremity: Pulses equal, no cyanosis. Neurovascular intact. Full, normal range of motion. Neuro: Awake and alert, GCS 15, oriented to person, place, time, and situation. Cranial nerves II-XII grossly intact. Motor strength 5/5 in all extremities. Sensory grossly intact. Cerebellar exam normal. Normal gait. 11:17 Abdomen/GI: Inspection: distension, that is moderate, in the abdomen diffusely, Bowel sounds: normal, in all quadrants, Palpation: soft, in all quadrants, mild abdominal tenderness, in all quadrants. Vital Signs: 10:10 BP 104 / 84; Pulse 98; Resp 22 S; Temp 103.2(O); Pulse Ox 91% on R/A; Weight 81.65 kg; iw Height 5 ft. 2 in. (157.48 cm); Pain 9/10; 11:15 BP 126 / 54; Pulse 86; Resp 18; Temp 100(O); Pulse Ox 92% ; bp 11:53 BP 129 / 50; Pulse 87; Resp 18; Pulse Ox 92% ; bp 12:53 BP 122 / 52; Pulse 87; Resp 14; Pulse Ox 90% ; bp 10:10 Body Mass Index 32.92 (81.65 kg, 157.48 cm) iw MDM: 10:20 Patient medically screened. kb 11:13 Data reviewed: vital signs, nurses notes. kb 11:17 Data interpreted: Pulse oximetry: on room air is 93 %. Interpretation: borderline. kb 13:42 Counseling: I had a detailed discussion with the patient and/or guardian regarding: the kb historical points, exam findings, and any diagnostic results supporting the discharge/admit diagnosis, lab results, radiology results, the need for further work-up and treatment in the hospital. Physician consultation: Cecilia Vital MD was contacted at 13:42, regarding admission, to the telemetry unit. patient's condition, and will see patient shortly, razas alejandrina and zithromax started. 03/19 10:18 Order name: Basic Metabolic Panel bp 03/19 10:19 Order name: CBC with Diff; Complete Time: 12:12 kb 03/19 10:19 Order name: Basic Metabolic Panel; Complete Time: 11:30 kb 03/19 10:19 Order name: Flu; Complete Time: 11:30 kb 03/19 10:19 Order name: Lactate; Complete Time: 11:51 kb 03/19 10:19 Order name: Procalcitonin; Complete Time: 11:51 kb 03/19 11:01 Order name: CT Abd/Pelvis - Without Cont; Complete Time: 13:34 kb 03/19 11:25 Order name: CBC Smear Scan; Complete Time: 12:12 EDWV 03/19 11:46 Order name: Urine Dipstick--Ancillary (enter results); Complete Time: 12:38 eb 03/19 13:47 Order name: Thorax Wo Con; Complete Time: 14:28 EDWV 03/19 13:49 Order name: Blood Culture EDWV 03/19 13:49 Order name: Influenza Screen (A EDWV 03/19 14:12 Order name: Blood Culture Adult (2) kb 03/19 15:02 Order name: Lactate Sepsis 2 HR Follow-up; Complete Time: 15:03 EDWV 03/19 10:19 Order name: Urine Dipstick-Ancillary (obtain specimen); Complete Time: 11:54 kb 03/19 10:19 Order name: IV Start; Complete Time: 11:54 kb 03/19 13:43 Order name: Heart Healthy EDMS Administered Medications: 10:36 Drug: Ibuprofen 600 mg Route: PO; hj 11:21 Follow up: Response: Temperature is decreased bp 11:15 Drug: NS 0.9% 1000 ml Route: IV; Rate: 1000 ml; Site: right jugular; bp 13:36 Follow up: IV Status: Completed infusion; IV Intake: 1000ml bp 12:47 Drug: morphine 4 mg Route: IVP; Site: right jugular; bp 13:35 Follow up: Response: Pain is decreased bp 12:47 Drug: Zofran 4 mg Route: IVP; Site: right jugular; bp 13:35 Follow up: Response: Pain is decreased bp 14:36 Drug: Rocephin 1 grams Route: IV; Rate: calculated rate; Site: right jugular; bp 15:24 Follow up: IV Status: Completed infusion; IV Intake: 20ml bp Disposition: 16:55 Co-signature as Attending Physician, Brad Hernández MD. rn Disposition: 03/19/19 13:43 Hospitalization ordered by Cecilia Vital for Inpatient Admission. Preliminary diagnosis is Pneumonia, unspecified organism. - Bed requested for Telemetry/MedSurg (Inpatient). - Status is Inpatient Admission. bp - Condition is Stable. - Problem is new. - Symptoms are unchanged. UTI on Admission? No Signatures: Dispatcher [employer] EDWV Jillian Banda, PANEL LAY UP WORKER-C PANEL LAY UP WORKER-CkSimona Vila, RN Cassandra Mijares RN RN iw Nieto, Roman, MD MD rn Joaquin, Henry, RN RN hj Peltier, Brian, ROYAL RN bp Corrections: (The following items were deleted from the chart) 10:22 10:18 Cardiac monitoring ordered. bp bp 10:22 10:18 EKG - Nurse/Tech ordered. bp bp 10:22 10:18 Urine Dipstick-Ancillary ordered. bp bp 10:23 10:18 IV Saline Lock - Large Bore ordered. bp bp 10:23 10:18 Labs collected and sent ordered. bp bp 10:23 10:18 Oxygen Per Protocol ordered. bp bp 10:23 10:18 O2 Sat Monitoring ordered. bp bp 10:38 10:19 Chest Single View+RAD.RAD.BRZ ordered. [facility] EDMS 11:16 10:19 CBC+H.LAB.BRZ ordered. EDWV EDWV 11:17 10:19 Basic Metabolic Panel ordered. [facility] EDWV 11:17 10:19 CKMB+C.LAB.BRZ ordered. [facility] EDMS 11:17 10:19 CREATINE PHOSPHOKINASE+C.LAB.BRZ ordered. ED[facility] EDMS 11:17 10:19 HEPATIC FUNCTION+C.LAB.BRZ ordered. [facility] EDMS 11:17 10:19 LIPASE+C.LAB.BRZ ordered. [facility] EDMS 11:17 10:19 Procalcitonin+C.LAB.BRZ ordered. [facility] EDMS 11:17 10:19 PROTIME (+INR)+COAG.LAB.BRZ ordered. [facility] EDMS 11:17 10:19 PTT, ACTIVATED+COAG.LAB.BRZ ordered. EDWV EDMS 11:17 10:19 TROPONIN (EMERG DEPT USE ONLY)+C.LAB.BRZ ordered. EDMS EDMS 11:18 10:19 BLOOD CULTURE*+BA.LAB.BRZ ordered. EDWV EDMS 11:18 10:19 LACTATE+C.LAB.BRZ ordered. [facility] EDMS 11:19 10:19 UA MICROSCOPIC+U.LAB.BRZ ordered. EDWV EDMS 11:31 10:19 Abdomen Pelvis W Con+CT.RAD.BRZ ordered. EDWV EDWV 13:54 13:43 Hospitalization Ordered by Cecilia Vital MD for Inpatient Admission. Preliminary dw diagnosis is Pneumonia, unspecified organism. Bed requested for Telemetry/MedSurg (Inpatient). Status is Inpatient Admission. Condition is Stable. Problem is new. Symptoms are unchanged. UTI on Admission? No. kb 15:25 13:54 03/19/2019 13:43 Hospitalization Ordered by Cecilia Vital MD for Inpatient bp Admission. Preliminary diagnosis is Pneumonia, unspecified organism. Bed requested for Telemetry/MedSurg (Inpatient). Status is Inpatient Admission. Condition is Stable. Problem is new. Symptoms are unchanged. UTI on Admission? No. dw
--- NOTE | 2019-03-19 13:55 | P.HP ---
Certification for Inpatient Patient admitted to: Inpatient With expected LOS: >2 Midnights Patient will require the following post-hospital care: None Practitioner: I am a practitioner with admitting privileges, knowledge of patient current condition, hospital course, and medical plan of care. Services: Services provided to patient in accordance with Admission requirements found in Title 42 Section 412.3 of the Code of Federal Regulations Patient History Date of Service: 03/19/19 Primary Care Provider: Dr Valladares Reason for admission: Fever and Chills History of Present Illness: 63 y/o F with Pmhx of TIA, Addisons, IBS and Depression presented to the ER with c/o of abdominal Pain, N.V and fever. Pt was recently DC from the hospital after being treated with colitis. Pt states when she went home she was doing well until this AM when she wokeup and started having fever, abd pain along with n/v. Temp at home was 100.6 and thus patient decided to come to the ER. Pt denies cough, congestion, CP or SOB. In the ER pt was seen and evaluated. lab work and imaging was done. Pt was found to have sepsis most likely 2.2 to PNA and thus was admitted to the hospital for further care. Allergies Penicillins Allergy (Verified 03/16/19 23:40) Shortness of breath Sulfa (Sulfonamide Antibiotics) [Sulfa(Sulfonamide Antibiotics)] Allergy ( Verified 03/16/19 23:40) Shortness of breath NSAIDS Adverse Reaction (Uncoded 03/16/19 23:40) Kidney Problems Home Medications: Amitriptyline [Elavil*] 100 mg PO BEDTIME 03/17/19 Duloxetine HCl [Cymbalta] 90 mg PO DAILY 03/17/19 Estradiol [Estrace] 2 mg PO BEDTIME 03/17/19 Fludrocortisone [Florinef *] 0.1 mg PO DAILY 03/17/19 Hydrocortisone [Cortef*] 20 mg PO BIDL 03/17/19 Omeprazole [Prilosec] 40 mg PO DAILY 03/17/19 Promethazine HCl 25 mg PO BIDP PRN 03/17/19 Rosuvastatin [Crestor*] 10 mg PO BEDTIME 03/17/19 Tizanidine HCl 2 mg PO BIDP PRN 03/17/19 Zaleplon 10 mg PO BEDTIME 03/17/19 clonazePAM [Clonazepam] 1 mg PO BIDP PRN 03/17/19 Ciprofloxacin/Ciprofloxa HCl [Ciprofloxacin 500 mg ER Tablet] 500 mg PO DAILY # 10 tbmp.24hr 03/18/19 metroNIDAZOLE [Flagyl] 500 mg PO Q6H #40 tablet 03/18/19 - Past Medical/Surgical History Diabetic: No -: Fentress's -: Irritable Bowel Syndrome -: TIA -: Chronic back pain -: Cholecystectomy -: Appy -: -: Hysterectomy -: Explore Lap - Family History Mother -: Cancer, Other (see notes) Notes: Asthma. Rheumatoid Arthritis - Social History Alcohol use: No CD- Drugs: Yes Caffeine use: No Review of Systems 10-point ROS is otherwise unremarkable Physical Examination - Physical Exam General: Mild distress, Other (Lethargic ) HEENT: PERRLA Neck: Supple, 2+ carotid pulse no bruit, No LAD, Without JVD or thyroid abnormality Respiratory: Normal air movement, Crackles/rales, Rhonchi/gurgles Cardiovascular: Regular rate/rhythm, Normal S1 S2 Gastrointestinal: Normal bowel sounds, No tenderness Musculoskeletal: No tenderness Integumentary: No rashes Neurological: Normal speech, Normal tone, Abnormal strength Lymphatics: No axilla or inguinal lymphadenopathy - Studies Laboratory Data (last 24 hrs) 03/19/19 11:00: Sodium 142, Potassium 3.2 L, BUN 5 L, Creatinine 0.87, Glucose 118 H 03/19/19 11:00: WBC 15.4 H D, Hgb 10.4 L, Hct 32.6 L, Plt Count 237 03/19/19 10:18: PT Cancelled, INR Cancelled, APTT Cancelled 03/19/19 10:18: WBC Cancelled, Hgb Cancelled, Hct Cancelled, Plt Count Cancelled 03/19/19 10:18: Sodium Cancelled, Potassium Cancelled, BUN Cancelled, Creatinine Cancelled, Glucose Cancelled, Total Bilirubin Cancelled, AST Cancelled, ALT Cancelled, Alkaline Phosphatase Cancelled, Lipase Cancelled Microbiology Data (last 24 hrs): 03/19/19 11:00 Nasopharnyx Influenza Type A Antigen Screen - Final 03/19/19 11:00 Nasopharnyx Influenza Type B Antigen Screen - Final Assessment and Plan - Problems (Diagnosis) (1) Toxic encephalitis Current Visit: Yes Status: Acute Plan: Most Likely secondary to Sepsis. -Currently AAOx2 but does appear to be lethargic. -Will monitor closely, If no change then will get Head CT (2) Sepsis Current Visit: No Status: Acute Plan: Sepsis with unknown Etiology possibly BL LL PNA. -LA elevated with WBC. CT chest pending. Ct abd with BL LL PNA and improvement in Colitis -Will order Blood, Urine and sputum culture. Influenza panel ordered as well -Started on Azithromycin and rocephin at this time -Started on IV fluids as well. 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 Advice to bring the bottle to verify and restart here in hospital Qualifiers: Chronic pain type: chronic pain syndrome Qualified Code(s): G89.4 - Chronic pain syndrome (5) Depression with anxiety Current Visit: No Status: Chronic Plan: Stable for now. Restart home medication (6) GERD (gastroesophageal reflux disease) Current Visit: No Status: Chronic Plan: Protonix 40mg BID Qualifiers: Esophagitis presence: without esophagitis Qualified Code(s): K21.9 - Gastro -esophageal reflux disease without esophagitis (7) Hyperlipidemia Onset Date: 11/01/18 Current Visit: No Status: Chronic Plan: Restart home medication Qualifiers: Hyperlipidemia type: mixed hyperlipidemia Qualified Code(s): E78.2 - Mixed hyperlipidemia - Plan Admit to Med surg for Sepsis. F.u with Culture and Started on IV fluids and abx. - Advance Directives Does patient have a Living Will: Yes Does patient have a Durable POA for Healthcare: Yes
[2019-03-19] MEDS ORDERED: CEFTRIAXONE/SWI 1gm 1 GM/10 ML SYR ONE (14:06)
--- NOTE | 2019-03-19 14:24 | RAD REPORT ---
EXAM DESCRIPTION: CT - Thorax Wo Con - 03/19/2019 2:04 pm CLINICAL HISTORY: sob COMPARISON: March 16, 2019 TECHNIQUE: Computed axial tomography of the chest was obtained. Contrast was not requested. All CT scans are performed using dose optimization technique as appropriate and may include automated exposure control or mA/KV adjustment according to patient size. FINDINGS: The evaluation of mediastinum, yen and vessels is limited secondary to lack of IV contras t administration. Moderate patchy alveolar and tree-in-bud opacities right lung. Mild tree-in-bud opacities left lung. No mediastinal or hilar lymphadenopathy is seen. A pleural effusion is not present. IMPRESSION: Bilateral alveolar and tree-in-bud opacities consistent with pneumonia
[2019-03-19 16:10] VITALS: BMI 32.0
[2019-03-19] MEDS ORDERED: TRAMADOL HCL 50 MG TAB PO ONE (16:44)
[2019-03-19] MEDS: AZITHROMYCIN IV 500 MG in NA CHLORIDE 0.9% 250 ML IVPB SCH (17:16)
[2019-03-19] MEDS: NA CHLORIDE 0.9% 1,000 ML IV SCH (17:16)
[2019-03-19 18:41] LABS: Urine Appearance CLEAR; Urine Bilirubin NEGATIVE (NEG); Urine Blood NEGATIVE (NEG); Urine Color YELLOW; Urine Glucose NEGATIVE (NEG); Urine Protein NEGATIVE (NEG); Urine Specific Gravity <=1.005 (1.005-1.030); Urine Urobilinogen 0.2 mg/dL (0.2-1.0)
[2019-03-19 18:43] LABS: Urine Microscopic Reflex NO UMIC
[2019-03-19] MEDS: MORPHINE 2 MG/ML SYR IV PRN (20:52)
[2019-03-19] MEDS: ONDANSETRON 4 MG/2 ML VIAL IV PRN (20:52)
[2019-03-19] MEDS ORDERED: POTASSIUM 25 MEQ EFFERV TAB PO ONE (21:00)
[2019-03-19] MEDS ORDERED: PROMETHAZINE 25 MG TABLET PO PRN (23:04)
[2019-03-19] MEDS ORDERED: OXYCODONE *CR* 10 MG TAB PO PRN (23:04)
[2019-03-19] MEDS ORDERED: HYDROCORTISONE SUC 100 MG INJ IV ONE (23:07)
[2019-03-19] MEDS ORDERED: ALBUTEROL 2.5 MG/3 ML NEB SOL NEB ONE (23:07)
[2019-03-19] MEDS ORDERED: FUROSEMIDE 20 MG/ 2ML VIAL IV ONE (23:10)
[2019-03-19] MEDS: AMITRIPTYLINE 50 MG TAB PO SCH (23:50)
[2019-03-20] MEDS: ONDANSETRON 4 MG/2 ML VIAL IV PRN ×3 (01:09→17:43)
[2019-03-20] MEDS: MORPHINE 2 MG/ML SYR IV PRN ×4 (01:09→15:50)
[2019-03-20] MEDS: NA CHLORIDE 0.9% 1,000 ML IV SCH ×5 (04:05→20:00)
[2019-03-20] MEDS: PANTOPRAZOLE 40MG TABLET PO SCH (05:33)
[2019-03-20 05:47] LABS: ALT/SGPT 23 U/L (12-78); AST/SGOT 19 U/L (15-37); Albumin 2.9 g/dL (3.4-5.0); Alkaline Phosphatase 100 U/L (45-117); BUN Blood Urea Nitrogen 5 mg/dL (7-18); Bicarbonate 30 mmol/L (21-32); Bilirubin Total 0.2 mg/dL (0.2-1.0); Glucose Level 115 mg/dL (74-106); Magnesium 1.6 mg/dL (1.8-2.4); Phosphorus 2.2 mg/dL (2.5-4.9); Potassium 3.4 mmol/L (3.5-5.1); Protein, Total 6.5 g/dL (6.4-8.2); Sodium Level 143 mmol/L (136-145)
[2019-03-20 06:13] LABS: Absolute Lymphocytes (CBC) 0.7 K/uL (0.7-4.9); Absolute Monocytes 0.3 K/uL (0.1-1.3); Absolute Neutrophil 14.3 K/uL (1.8-8.0); Eosinophils % 0.4 % (0-4.4); Hematocrit 31.5 % (36.0-45.0); Lymphocytes % 4.3 % (15.3-44.8); MPV 9.1 fL (7.6-11.3); Monocytes % 1.9 % (3.3-12.3); RBC Red Blood Cell Count 3.74 M/uL (3.86-4.86)
[2019-03-20] MEDS ORDERED: POTASSIUM CL SA 10 MEQ TAB PO ONE (06:18)
[2019-03-20] MEDS: ALBUTEROL 2.5 MG/3 ML NEB SOL NEB SCH ×4 (07:30→19:43)
[2019-03-20] MEDS: DULOXETINE 30 MG CAP PO SCH (08:13)
[2019-03-20] MEDS: HYDROCORTISONE 10 MG TAB PO SCH ×2 (08:14→15:51)
[2019-03-20] MEDS: POTASS/SODIUM PHOSPHATE 1 PKT POWD.PACK PO SCH ×3 (08:14→10:56)
[2019-03-20] MEDS: CEFTRIAXONE/SWI 1gm 1 GM/10 ML SYR IV SCH (08:14)
[2019-03-20] MEDS: FLUDROCORTISONE 0.1 MG TAB PO SCH (08:15)
[2019-03-20] MEDS: OXYCODONE IR 10 MG PO PRN ×2 (08:15→20:45)
[2019-03-20] MEDS: clonazePAM 1 MG TAB PO PRN ×2 (08:15→17:42)
[2019-03-20] MEDS ORDERED: MAGNESIUM SULFATE 1 gm IVPB 1 GM/100 ML BAG IV ONE (09:00)
--- NOTE | 2019-03-20 09:43 | P.PN ---
Subjective Date of Service: 03/20/19 Primary Care Provider: Dr Valladares Chief Complaint: Fever and Chills Subjective: Tolerating diet, Ambulating, Improving, Working w/ PT, Doing well, Other (Denies having Fever, chills, N/V or SOB. States feels much better than before) Review of Systems 10-point ROS is otherwise unremarkable Physical Examination - Vital Signs Temperature: 98.4 F Blood Pressure: 140/65 Pulse: 77 Respirations: 20 Pulse Ox (%): 95 - Physical Exam General: Alert, In no apparent distress HEENT: Atraumatic, PERRLA, EOMI Neck: Supple, JVD not distended Respiratory: Normal air movement, Crackles/rales, Rhonchi/gurgles Cardiovascular: Regular rate/rhythm, Normal S1 S2 Gastrointestinal: Normal bowel sounds, No tenderness Musculoskeletal: No tenderness Integumentary: No rashes Neurological: Normal speech, Normal tone, Normal affect Lymphatics: No axilla or inguinal lymphadenopathy - Studies Laboratory Data (last 24 hrs) 03/19/19 11:00: Sodium 142, Potassium 3.2 L, BUN 5 L, Creatinine 0.87, Glucose 118 H 03/19/19 11:00: WBC 15.4 H D, Hgb 10.4 L, Hct 32.6 L, Plt Count 237 03/19/19 10:18: PT Cancelled, INR Cancelled, APTT Cancelled 03/19/19 10:18: WBC Cancelled, Hgb Cancelled, Hct Cancelled, Plt Count Cancelled 03/19/19 10:18: Sodium Cancelled, Potassium Cancelled, BUN Cancelled, Creatinine Cancelled, Glucose Cancelled, Total Bilirubin Cancelled, AST Cancelled, ALT Cancelled, Alkaline Phosphatase Cancelled, Lipase Cancelled Microbiology Data (last 24 hrs): 03/19/19 11:00 Nasopharnyx Influenza Type A Antigen Screen - Final 03/19/19 11:00 Nasopharnyx Influenza Type B Antigen Screen - Final Medications List Reviewed: Yes Assessment And Plan - Current Problems (Diagnosis) (1) Toxic encephalitis Current Visit: Yes Status: Acute Plan: Most Likely secondary to Sepsis. Now resolved -Currently AAOx3 (2) Sepsis Current Visit: No Status: Acute Plan: Sepsis 2.2 to possible BL LL PNA. -CT chest with PNA. LA WNL now and WBC trending down -Blood culture and sputum culture pending. 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 Advice to bring the bottle to verify and restart here in hospital Qualifiers: Chronic pain type: chronic pain syndrome Qualified Code(s): G89.4 - Chronic pain syndrome (5) Depression with anxiety Current Visit: No Status: Chronic Plan: Stable for now. Restart home medication (6) GERD (gastroesophageal reflux disease) Current Visit: No Status: Chronic Plan: Protonix 40mg BID Qualifiers: Esophagitis presence: without esophagitis Qualified Code(s): K21.9 - Gastro -esophageal reflux disease without esophagitis (7) Hyperlipidemia Onset Date: 11/01/18 Current Visit: No Status: Chronic Plan: Restart home medication Qualifiers: Hyperlipidemia type: mixed hyperlipidemia Qualified Code(s): E78.2 - Mixed hyperlipidemia - Plan Pending Clinical Improvement. F.u with Culture. Continue with IV abx. Discharge Plan: Home Plan to discharge in: 24 Hours - Code Status/Comfort Care Code Status Assessed: Yes Critical Care: No
--- NOTE | 2019-03-20 10:48 | RAD REPORT ---
EXAM DESCRIPTION: RAD - Chest Pa And Lat (2 Views) - 03/20/2019 10:42 am CLINICAL HISTORY: SOB Chest pain. COMPARISON: Chest Single View dated 03/16/2019; Abdomen 1 View (KUB) dated 11/02/2018; Chest Pa And L at (2 Views) dated 11/02/2018; Chest Pa And Lat (2 Views) dated 10/31/2018; Thorax Wo Con dated 019 FINDINGS: Bibasilar lung opacities are present, greatest in both medial lung bases and on the left, likely representing pneumonia. The heart is normal in size. No displaced fractures. IMPRESSION: Moderate bibasilar pneumonia pattern is seen, greater on the left.
[2019-03-20] MEDS: AZITHROMYCIN IV 500 MG in NA CHLORIDE 0.9% 250 ML IVPB SCH (15:56)
[2019-03-20] MEDS ORDERED: POLYETHYL GLY 3350 17 GM/DOSE PO ONE (18:03)
[2019-03-20] MEDS: AMITRIPTYLINE 50 MG TAB PO SCH (20:44)
[2019-03-20] MEDS ORDERED: HOME MED 1 EA UNK (Zaleplon [Zaleplon] 10 MG) PO SCH (21:00)
[2019-03-20] MEDS ORDERED: ROSUVASTATIN 10 MG TAB PO SCH (21:00)
[2019-03-20] MEDS ORDERED: ESTRADIOL 2 MG PO SCH (21:00)
[2019-03-20] MEDS: BENZONATATE 100 MG CAP PO PRN (21:40)
[2019-03-20] MEDS: NACHLORIDE 0.45% 1,000 ML IV SCH (21:41)
[2019-03-21] MEDS: ALBUTEROL 2.5 MG/3 ML NEB SOL NEB SCH ×2 (02:00→08:30)
[2019-03-21] MEDS: MORPHINE 2 MG/ML SYR IV PRN (04:43)
[2019-03-21] MEDS: ONDANSETRON 4 MG/2 ML VIAL IV PRN ×2 (04:44→11:36)
[2019-03-21] MEDS: BENZONATATE 100 MG CAP PO PRN (04:44)
[2019-03-21] MEDS: PANTOPRAZOLE 40MG TABLET PO SCH (06:00)
[2019-03-21 06:11] LABS: Absolute Monocytes 0.5 K/uL (0.1-1.3); Absolute Neutrophil 8.1 K/uL (1.8-8.0); Basophils % 0.3 % (0-1.3); Eosinophils % 2.4 % (0-4.4); Hematocrit 27.6 % (36.0-45.0); Lymphocytes % 18.1 % (15.3-44.8); MPV 8.9 fL (7.6-11.3); Monocytes % 4.8 % (3.3-12.3); RBC Red Blood Cell Count 3.26 M/uL (3.86-4.86)
[2019-03-21 06:23] LABS: ALT/SGPT 21 U/L (12-78); AST/SGOT 15 U/L (15-37); Albumin 2.7 g/dL (3.4-5.0); Alkaline Phosphatase 97 U/L (45-117); BUN Blood Urea Nitrogen 4 mg/dL (7-18); Bicarbonate 30 mmol/L (21-32); Bilirubin Total 0.2 mg/dL (0.2-1.0); Glucose Level 99 mg/dL (74-106); Phosphorus 2.1 mg/dL (2.5-4.9); Potassium 3.1 mmol/L (3.5-5.1); Protein, Total 6.3 g/dL (6.4-8.2); Sodium Level 144 mmol/L (136-145)
[2019-03-21] MEDS ORDERED: POTASSIUM PHOS IN 0.9 % NACL 15 MMOL/250 ML BAG IV ONE (07:48)
[2019-03-21] MEDS ORDERED: POTASSIUM CL SA 10 MEQ TAB PO ONE (07:48)
[2019-03-21] MEDS: CEFTRIAXONE/SWI 1gm 1 GM/10 ML SYR IV SCH (08:33)
[2019-03-21] MEDS: DULOXETINE 30 MG CAP PO SCH (08:34)
[2019-03-21] MEDS: FLUDROCORTISONE 0.1 MG TAB PO SCH (08:34)
[2019-03-21] MEDS: HYDROCORTISONE 10 MG TAB PO SCH (08:34)
[2019-03-21] MEDS: OXYCODONE IR 10 MG PO PRN (08:34)
[2019-03-21] MEDS: NACHLORIDE 0.45% 1,000 ML IV SCH (10:16)
--- NOTE | 2019-03-21 11:47 | P.DS ---
Admission Date: 03/19/19 Discharge Date: 03/21/19 Primary Care Provider: Dr. Valladares Disposition: ROUTINE DISCHARGE Discharge Condition: GOOD Reason for Admission: Fever and Chills Consultations: none Procedures: CT scan AB: COMPARISON: March 16, 2019 TECHNIQUE: Computed axial tomography of the abdomen and pelvis was obtained. IV was not requested. Oral contrast was given. Coronal reconstructions performed. All CT scans are performed using dose optimization technique as appropriate and may include automated exposure control or mA/KV adjustment according to patient size. FINDINGS: The evaluation of solid organs and vessels is limited secondary to the lack of contrast administration. Mild to moderate tree-in-bud opacities have developed within the lower lobes Mild thickening of portions of the descending colon wall. Sigmoid colonic wall normal caliber. No other significant change IMPRESSION: Mild to moderate tree-in-bud opacities within the lower lobes may indicate an atypical infection Improvement in the colitis which is now mild CT chest: COMPARISON: March 16, 2019 TECHNIQUE: Computed axial tomography of the chest was obtained. Contrast was not requested. All CT scans are performed using dose optimization technique as appropriate and may include automated exposure control or mA/KV adjustment according to patient size. FINDINGS: The evaluation of mediastinum, yen and vessels is limited secondary to lack of IV contrast administration. Moderate patchy alveolar and tree-in-bud opacities right lung. Mild tree-in-bud opacities left lung. No mediastinal or hilar lymphadenopathy is seen. A pleural effusion is not present. IMPRESSION: Bilateral alveolar and tree-in-bud opacities consistent with pneumonia CXR: COMPARISON: Chest Single View dated 03/16/2019; Abdomen 1 View (KUB) dated 11/02; Chest Pa And Lat (2 Views) dated 11/02/2018; Chest Pa And Lat (2 Views) dated 10/31/2018; Thorax Wo Con dated 03/19/2019 FINDINGS: Bibasilar lung opacities are present, greatest in both medial lung bases and on the left, likely representing pneumonia. The heart is normal in size. No displaced fractures. IMPRESSION: Moderate bibasilar pneumonia pattern is seen, greater on the left. Medical Problem List: Sepsis secondary to bilateral lower lobe pneumonia Pondera's disease Chronic pain Depression with anxiety GERD Hyperlipidemia Recent colitis Brief History of Present Illness: 63-year-old female presented to the emergency room with fever. She was recently hospitalized for colitis. Patient was evaluated in the emergency room. She was found to have sepsis with bilateral pneumonia. Patient was admitted for treatment. Hospital Course: Patient presented with sepsis secondary to bilateral lower lobe pneumonia. During the course of her stay her condition improved. At discharge she is without any significant shortness of breath. Room-air saturations within normal range. White count within normal range. Pro calcitonin negative. X- ray shows mild improvement. At discharge she will continue with Levaquin 500 mg 1 pill daily for 7 days. Patient will also continue with Pro air 2 puffs 3 times a day as needed for shortness of breath, Tessalon Perles 100 mg 3 times a day as needed for cough and Mucinex 600 mg 1 pill twice daily for congestion. Recommend to recheck lab-BMP, CBC and chest x-ray in 2-4 weeks to monitor resolution. Recommend to follow up with PCP within 1 week. Patient with history of Bruce's disease. Patient will continue with her medication of Florinef 0.1 mg daily and Cortef 20 mg 1 pill twice daily. Patient with hyperlipidemia. Patient will continue with Crestor 10 mg daily. Patient with depression and anxiety. Patient will continue with Elavil 10 mg at bedtime, Cymbalta 90 mg 1 pill daily, and clonazepam 1 mg 1 pill twice daily as needed for anxiety. Patient with chronic pain. Patient will continue with her chronic pain medication. Recommend to follow up with chronic pain management to further monitor and address. Patient with GERD. Patient will continue with Prilosec 20 mg daily. Patient with recent colitis. CT scan showed improvement. No significant abdominal pain noted at discharge. Vital Signs/Physical Exam: Temp Pulse Resp BP Pulse Ox 97.3 F 80 18 128/60 90 L 03/21/19 08:00 03/21/19 08:00 03/21/19 08:00 03/21/19 08:00 03/21/19 08:00 General: Alert, In no apparent distress, Oriented x3, Cooperative HEENT: Atraumatic Neck: Supple Respiratory: Clear to auscultation bilaterally, Normal air movement Cardiovascular: Normal pulses, Regular rate/rhythm Gastrointestinal: Normal bowel sounds, Soft and benign, Non-distended, No masses , No rebound, No guarding Musculoskeletal: No erythema, No tenderness, No warmth Integumentary: No tenderness/swelling, No erythema, No warmth, No cyanosis Neurological: Normal speech, Normal strength at 5/5 x4 extr, Normal tone, Normal affect Laboratory Data at Discharge: WBC 10.9 K/uL (4.3-10.9) D 03/21/19 05:28 Hgb 9.4 g/dL (12.0-15.0) L 03/21/19 05:28 Hct 27.6 % (36.0-45.0) L 03/21/19 05:28 Plt Count 212 K/uL (152-406) 03/21/19 05:28 PT Cancelled 03/19/19 10:18 INR Cancelled 03/19/19 10:18 APTT Cancelled 03/19/19 10:18 Sodium 144 mmol/L (136-145) 03/21/19 05:28 Potassium 3.1 mmol/L (3.5-5.1) L 03/21/19 05:28 BUN 4 mg/dL (7-18) L 03/21/19 05:28 Creatinine 0.61 mg/dL (0.55-1.3) 03/21/19 05:28 Glucose 99 mg/dL (74-106) 03/21/19 05:28 Phosphorus 2.1 mg/dL (2.5-4.9) L 03/21/19 05:28 Magnesium 2.0 mg/dL (1.8-2.4) 03/21/19 05:28 Total Bilirubin 0.2 mg/dL (0.2-1.0) 03/21/19 05:28 AST 15 U/L (15-37) 03/21/19 05:28 ALT 21 U/L (12-78) 03/21/19 05:28 Alkaline Phosphatase 97 U/L (45-117) 03/21/19 05:28 Lipase Cancelled 03/19/19 10:18 Home Medications: Amitriptyline [Elavil*] 100 mg PO BEDTIME 03/17/19 Duloxetine HCl [Cymbalta] 90 mg PO DAILY 03/17/19 Estradiol [Estrace] 2 mg PO BEDTIME 03/17/19 Fludrocortisone [Florinef *] 0.1 mg PO DAILY 03/17/19 Hydrocortisone [Cortef*] 20 mg PO BIDL 03/17/19 Omeprazole [Prilosec] 40 mg PO DAILY 03/17/19 Promethazine HCl 25 mg PO BIDP PRN 03/17/19 Rosuvastatin [Crestor*] 10 mg PO BEDTIME 03/17/19 Zaleplon 10 mg PO BEDTIME 03/17/19 clonazePAM [Clonazepam] 1 mg PO BIDP PRN 03/17/19 Oxycodone HCl [Oxyir] 10 mg PO TID PRN 03/20/19 Albuterol Sulfate [Proair Hfa] 8.5 gm IH TID PRN #1 hfa.aer.ad 03/21/19 Benzonatate [Tessalon Perle*] 200 mg PO TID PRN #15 cap 03/21/19 Guaifenesin [Mucinex] 600 mg PO BID #15 tab.er.12h 03/21/19 Levofloxacin [Levaquin] 500 mg PO DAILY #7 tablet 03/21/19 New Medications: Albuterol Sulfate [Proair Hfa] 8.5 gm IH TID PRN #1 hfa.aer.ad PRN Reason: Shortness Of Breath Benzonatate [Tessalon Perle*] 200 mg PO TID PRN #15 cap PRN Reason: Cough Guaifenesin [Mucinex] 600 mg PO BID #15 tab.er.12h Levofloxacin [Levaquin] 500 mg PO DAILY #7 tablet Patient Discharge Instructions: 1. Recommend to follow up with her PCP within 1 week to follow up this hospitalization. 2. Patient presented with sepsis secondary to bilateral lower lobe pneumonia. During the course of her stay her condition improved. At discharge she is without any significant shortness of breath. Room-air saturations within normal range. White count within normal range. Pro calcitonin negative. X-ray shows mild improvement. At discharge she will continue with Levaquin 500 mg 1 pill daily for 7 days. Patient will also continue with Pro air 2 puffs 3 times a day as needed for shortness of breath, Tessalon Perles 100 mg 3 times a day as needed for cough and Mucinex 600 mg 1 pill twice daily for congestion. Recommend to recheck lab-BMP, CBC and chest x-ray in 2-4 weeks to monitor resolution. Recommend to follow up with PCP within 1 week. 3. Patient with history of Pondera's disease. Patient will continue with her medication of Florinef 0.1 mg daily and Cortef 20 mg 1 pill twice daily. 4. Patient with hyperlipidemia. Patient will continue with Crestor 10 mg daily. 5. Patient with depression and anxiety. Patient will continue with Elavil 10 mg at bedtime, Cymbalta 90 mg 1 pill daily , and clonazepam 1 mg 1 pill twice daily as needed for anxiety. 6. Patient with chronic pain. Patient will continue with her chronic pain medication. Recommend to follow up with chronic pain management to further monitor and address. 7. Patient with GERD. Patient will continue with Prilosec 20 mg daily. 8. Patient with recent colitis. CT scan showed improvement. No significant abdominal pain noted at discharge. Diet: AHA Activity: Fall precautions Time spent managing pt's care (in minutes): 55
[2019-03-21 13:02] VITALS: BP 136/63; TEMP 98.2
[2019-03-21 13:31] VITALS: O2SAT 92
== END 2019-03-21 15:00 | disposition home or self-care (01) | DRG 871 ==
LOC: ER 09:52 → ERHOLD 13:42 → 2ND 15:18
PROVIDERS: ADMIT Family Medicine; ATTEND Family Medicine
DX: A41.9 Sepsis, unspecified organism (principal); J18.9 Pneumonia, unspecified organism; G92 Toxic encephalopathy; E27.1 Primary adrenocortical insufficiency; K58.9 Irritable bowel syndrome, unspecified; F41.8 Other specified anxiety disorders; G89.4 Chronic pain syndrome; K21.9 Gastro-esophageal reflux disease without esophagitis; E78.5 Hyperlipidemia, unspecified; Z88.6 Allergy status to analgesic agent; Z88.0 Allergy status to penicillin; Z88.2 Allergy status to sulfonamides
CPT/HCPCS: 36415; 71045; 71046; 71250; 74176; 74177; 80048; 80053; 80076; 81003; 82962; 83605; 83690; 83735; 83880; 84100; 84132; 84145; 84484; 85025; 85610; 86850; 86900; 86901; 87040; 87070; 87081; 87086; 87088; 87804; 96361; 96365; 96375; 97116; 97163; 97530; 99285; G0378; J0456; J0696; J0744; J1720; J1940; J2270; J2405; J3475; J7030; Q9967

== ENCOUNTER 2019-05-08 19:35 | Observation (INO) | payer OTHER ==
--- OUTSIDE RECORDS SUMMARY | 2019-05-08 19:37 | XMS REPORT ---
:1955 [facility] Address [address] [place] [address] Dr. Sidhu [address] [place] [id number] Care Team Providers Name Role Phone Unavailable Unavailable Unavailable Problems This patient has no known problems. Allergies, Adverse Reactions, Alerts This patient has no known allergies or adverse reactions. Medications This patient has no known medications.
[2019-05-08 20:40] LABS: Absolute Lymphocytes (CBC) 1.3 K/uL (0.7-4.9); Basophils % 0.4 % (0-1.3); Eosinophils % 1.3 % (0-4.4); Hematocrit 34.5 % (36.0-45.0); Lymphocytes % 17.9 % (15.3-44.8); MPV 8.4 fL (7.6-11.3); Monocytes % 4.9 % (3.3-12.3); RBC Red Blood Cell Count 4.07 M/uL (3.86-4.86)
[2019-05-08 20:47] LABS: Protime INR 1.02
--- NOTE | 2019-05-08 20:51 | RAD REPORT ---
EXAM DESCRIPTION: CT - Ct Stroke Brain Wo Cont - 05/08/2019 8:39 pm CLINICAL HISTORY: expressive aphasia unable to walk COMPARISON: March 2018 TECHNIQUE: Computed axial tomography of the head was obtained. All CT scans are performed using dose optimization technique as appropriate and may include automated exposure control or mA/KV adjustment according to patient size. FINDINGS: An intracranial bleed is not seen . The ventricles are normal in caliber. No extra-axial fluid collection is noted. Mild to moderate low-density within periventricular, deep and subcortical white matter likely ischemi c changes secondary to small vessel disease Fluid within the sinuses/ mastoids is not seen. IMPRESSION: No acute intracranial abnormality is seen. If patient's symptoms persist MRI of the bra in would be recommended. José of the emergency room was notified 845PM. May 08, 2019
[2019-05-08 20:54] LABS: Potassium 3.4 mmol/L (3.5-5.1)
--- NOTE | 2019-05-08 21:57 | RAD REPORT ---
EXAM DESCRIPTION: Dasia Single View05/08/2019 9:20 pm CLINICAL HISTORY: Chest pain COMPARISON: March 2019 FINDINGS: The lungs appear clear of acute infiltrate. The heart is normal size IMPRESSION: No acute abnormalities displayed
[2019-05-08 22:40] LABS: Urine Blood TRACE (NEG); Urine Glucose NEGATIVE (NEG); Urine Protein NEGATIVE (NEG); Urine pH 7.5 (5.0-7.0)
[2019-05-08] MEDS ORDERED: HYDROCORTISONE SUC 100 MG INJ ONE (23:11)
--- NOTE | 2019-05-08 23:29 | ER ---
Nurse's Notes [facility] Name: Dulce Cerna Age: 63 yrs Sex: Female : 1955 Arrival Date: 05/08/2019 Time: 19:39 Bed 28 Private MD: Brayan Valladares E Diagnosis: Weakness-non ambulatory;Addisonian crisis-history;Hypokalemia Presentation: 05/08 20:15 Presenting complaint: Patient's sister said "She have difficulty walking since an hour cc3 ago. And I noticed that she has difficulty expressing what she has to say, she's been like that before but today's worst" Patient denies arm weakness but noticed to have shakiness on her bilateral upper extremities, patient's sister said she's been like that since before but today's worst. No visual disturbance, no neglect but noticed to have expressive aphasia. Transition of care: patient was not received from another setting of care. Onset of symptoms was May 08, 2019. Risk Assessment: Do you want to hurt yourself or someone else? Patient reports no desire to harm self or others. Initial Sepsis Screen: Does the patient meet any 2 criteria? No. Patient's initial sepsis screen is negative. Does the patient have a suspected source of infection? No. Patient's initial sepsis screen is negative. Care prior to arrival: None. 20:15 Method Of Arrival: Wheelchair cc3 20:15 Acuity: TRACY 2 cc3 20:15 An acute neurological deficit is present. The charge nurse has been notified. cc3 Pre-hospital glucose is not applicable to this patient. Triage Assessment: 20:15 General: Appears in no apparent distress. uncomfortable, Behavior is calm, cooperative, cc3 appropriate for age. Pain: Denies pain. EENT: No signs and/or symptoms were reported regarding the EENT system. Neuro: Level of Consciousness is awake, alert, obeys commands, Oriented to person, place, time, situation, Appropriate for age Knurling Machine Operator are equal bilaterally Moves all extremities. Gait is patient states she has difficulty walking that started an hour ago. Speech with expressive aphasia noted, Facial symmetry appears normal, Pupils are PERRLA, Intact Denies blurred vision dizziness, difficulty swallowing, paresthesias numbness headache photophobia diplopia. Cardiovascular: Denies chest pain, Patient's skin is warm and dry. Respiratory: Airway is patent Trachea midline Respiratory effort is even, unlabored, Respiratory pattern is regular, symmetrical. GI: Abdomen is round non-distended. : No signs and/or symptoms were reported regarding the genitourinary system. Derm: Skin is intact, is healthy with good turgor, Skin is pink, warm \\T\\ dry. normal. Musculoskeletal: Range of motion: intact in all extremities, patient states she suddenly have difficulty walking started an hour ago. 20:15 The onset of the patients symptoms was less than three hours ago. Neuro: Reports cc3 difficulty walking and expressive aphasia. 20:15 The onset of the patients symptoms was May 08, 2019 at 18:00. cc3 Stroke Activation: Symptom onset < 3 hours Physician: Stroke Attending; Name: ; Notified At: 20:17; Arrived At: Physician: Chief Stroke Resident; Name: ; Notified At: 20:17; Arrived At: Physician: Stroke Resident; Name: ; Notified At: 20:17; Arrived At: Physician: ED Attending; Name: Fletcher Pruitt; Notified At: 20:17; Arrived At: 20:17 Physician: ED Resident; Name: ; Notified At: 20:17; Arrived At: Historical: - Allergies: 20:00 PENICILLINS; cc3 20:00 Sulfa (Sulfonamide Antibiotics); cc3 - Home Meds: 20:00 amitriptyline 100 mg Oral tab 1 tab "1 or 2 tablets at bedtime" [Active]; clonazepam 1 cc3 mg Oral tab 1 tab BID PRN [Active]; duloxetine DR 60 mg PO in the AM [Active]; estradiol 2 mg Oral tab 1 tab once daily [Active]; fludrocort 0.1 mg 1 tab DAILY [Active]; omeprazole 40 mg Oral cpDR 1 cap once daily [Active]; oxycodone 10 mg Oral tab 1 tab three times a day [Active]; promethazine 25 mg Oral tab 1 tab BID PRN [Active]; rosuvastatin 10 mg Oral tab 1 tab once daily [Active]; tizanidine 2 mg Oral tab twice a day [Active]; zaleplon 5 mg Oral tab 1 cap "1 or 2 tablets at bedtime." [Active]; - PMHx: 20:00 addisons; Chronic pain; Irritable bowel syndrome; TIA; cc3 - PSHx: 20:00 Hysterectomy; Cholecystectomy; cc3 - Immunization history:: Adult Immunizations up to date. - Social history:: Smoking status: Patient/guardian denies using tobacco, but has a distant history of tobacco abuse. - Ebola Screening: : No symptoms or risks identified at this time. - Family history:: not pertinent. Screenin:20 Abuse screen: Denies threats or abuse. Denies injuries from another. Nutritional cc3 screening: No deficits noted. Tuberculosis screening: No symptoms or risk factors identified. Patient has been NPO before screening. The patient is alert, able to follow commands. The patient does not exhibit slurred or garbled speech can speak but has difficulty expressing all of what she has to say The patient does not exhibit difficulty understanding words. The patient is able to swallow own secretions with no drooling or need for suction. Patient tolerated one teaspoon of water. No drooling, immediate coughing, gurgling, or clearing of the throat was noted. The patient tolerated 90mL of water. No drooling, immediate coughing, gurgling, or clearing of the throat was noted. The patient passed the bedside swallow screening. Oral medications may be given as ordered. Contact Physician for further diet orders. Provider notified of bedside swallow screening results: Fletcher Pruitt MD. Fall Risk Ambulatory Aid- None/Bed Rest/Nurse Assist (0 pts). Gait- Weak (10 pts.). Mental Status- Oriented to own ability (0 pts). Assessment: 20:15 VAN Scoring: Arm Drift: Patients demonstrates NO arm weakness. Patient is VAN Negative. cc3 Visual Disturbance: No visual disturbance noted. Aphasia: Expressive aphasia noted. Provider notified of +VAN scoring. Neglect: No neglect noted. 20:20 Patient has been NPO before screening. The patient is alert, and able to follow cc3 commands. The patient does not exhibit slurred or garbled speech. patient can speak but has difficulty telling all she wants to say The patient does not exhibit difficulty understanding words. The patient is able to swallow own secretions with no drooling or need for suction. Patient tolerated one teaspoon of water. No drooling, immediate coughing, gurgling, or clearing of the throat was noted. The patient tolerated 90mL of water. No drooling, immediate coughing, gurgling, or clearing of the throat was noted. The patient passed the bedside swallow screening. Oral medications may be given as ordered. Contact Physician for further diet orders. Provider notified of bedside swallow screening results: Fletcher Pruitt MD. 20:25 Reassessment: Patient moved to CT department for CT scan stroke procedure by stretcher. cc3 20:45 T-PA (Activase) Screening: Contraindications: Other: CT scan result. cc3 20:45 Reassessment: Informed Dr. Pruitt that patient is difficult to cannulate he said [facility] he'll try to do an external jugular vein IV access. Charge nurse Tawny informed as well. 21:18 Reassessment: Patient appears in no apparent distress at this time. Patient and/or cc3 family updated on plan of care and expected duration. Pain level reassessed. Patient is alert, oriented x 3, equal unlabored respirations, skin warm/dry/pink. 21:40 Reassessment: Dr. Pruitt said he'll not do an external jugular vein IV access on the cc3 patient, logistics tech Yaima tried to cannulate the patient but missed it, charge nurse Tawny informed that patient still needs an IV access she said she'll do it ultrasound guided. 22:12 Reassessment: Patient appears in no apparent distress at this time. Patient and/or cc3 family updated on plan of care and expected duration. Pain level reassessed. Patient is alert, oriented x 3, equal unlabored respirations, skin warm/dry/pink. 23:28 Reassessment: Patient appears in no apparent distress at this time. Patient and/or cc3 family updated on plan of care and expected duration. Pain level reassessed. Patient is alert, oriented x 3, equal unlabored respirations, skin warm/dry/pink. Patient for admission, awaiting admission orders. 05/09 00:30 Reassessment: Patient appears in no apparent distress at this time. Patient and/or cc3 family updated on plan of care and expected duration. Pain level reassessed. Patient is alert, oriented x 3, equal unlabored respirations, skin warm/dry/pink. Dr. Esquivel at bedside assessing the patient. Patient denies pain at this time. Patient states feeling better. 01:18 Reassessment: Patient appears in no apparent distress at this time. Patient and/or cc3 family updated on plan of care and expected duration. Pain level reassessed. Patient is alert, oriented x 3, equal unlabored respirations, skin warm/dry/pink. 02:20 Reassessment: Patient appears in no apparent distress at this time. Patient and/or cc3 family updated on plan of care and expected duration. Pain level reassessed. Patient is alert, oriented x 3, equal unlabored respirations, skin warm/dry/pink. 03:30 Reassessment: Patient appears in no apparent distress at this time. Patient and/or cc3 family updated on plan of care and expected duration. Pain level reassessed. Patient is alert, oriented x 3, equal unlabored respirations, skin warm/dry/pink. Patient's on ER hold, [facility] Transferred the patient to room 28 and handed over to ROYAL Gama for continuity of care. Patient denies pain at this time. Patient states feeling better. Vital Signs: 05/08 20:01 BP 161 / 82; Pulse 80; Resp 22; Temp 99.1; Pulse Ox 98% on R/A; Weight 76.2 kg; Height mw2 5 ft. 3 in. (160.02 cm); 21:16 BP 154 / 73; Pulse 70; Resp 15 S; Pulse Ox 97% on R/A; cc3 22:15 BP 100 / 63; Pulse 72; Resp 16 S; Pulse Ox 97% on R/A; cc3 23:00 BP 157 / 74; Pulse 75; Resp 13 S; Pulse Ox 96% on R/A; cc3 06 00:30 BP 151 / 84; Pulse 71; Resp 15 S; Pulse Ox 97% on R/A; cc3 01:15 BP 153 / 93; Pulse 71; Resp 14 S; Pulse Ox 96% on R/A; cc3 02:45 BP 157 / 81; Pulse 71; Resp 20 S; Pulse Ox 95% on R/A; cc3 03:15 BP 166 / 83; Pulse 71; Resp 16 S; Pulse Ox 96% on R/A; cc3 04:19 BP 127 / 69; Pulse 68; Resp 11; Temp 98.4; Pulse Ox 97% on R/A; 2 05/08 20:01 Body Mass Index 29.76 (76.20 kg, 160.02 cm) 2 NIH Stroke Scale Scores: 05/08 20:15 NIHSS Score: 1 cc3 ED Course: 19:39 Patient arrived in ED. am2 19:39 Brayan Valladares MD is Private Physician. am2 20:15 Patient has correct armband on for positive identification. Placed in gown. Bed in low cc3 position. Call light in reach. Side rails up X2. equipment monitor phototypesetting on. Pulse ox on. NIBP on. 20:15 Arm band placed on right wrist. EKG completed in triage. Results shown to MD. cc3 20:23 Shelly Cunningham is Primary Nurse. cc3 20:39 CT completed. Patient tolerated procedure well. Patient moved back from CT. mw3 20:39 CT Stroke Brain w/o Contrast In Process Unspecified. EDMS 20:54 Fletcher Pruitt MD is Attending Physician. christ 21:01 Triage completed. cc3 21:21 Stroke CXR 1 View In Process Unspecified. EDMS 21:22 X-ray completed. Portable x-ray completed in exam room. Patient tolerated procedure mh1 well. 23:26 Alicia Esquivel MD is Hospitalizing Provider. [facility] 23:40 Inserted saline lock: 20 gauge in right antecubital area, using aseptic technique. 05/09 03:30 Report given to ROYAL Gama. cc3 Administered Medications: 05/08 23:42 Drug: Solu-CORTEF 100 mg Route: IVP; Site: right antecubital; 05/09 00:00 Follow up: Response: No adverse reaction cc3 00:00 Drug: Potassium Effervescent Tablet 25 mEq Route: PO; cc3 01:30 Follow up: Response: No adverse reaction cc3 02:25 Drug: Zofran 4 mg Route: IVP; Site: right antecubital; cc3 03:02 Follow up: Response: No adverse reaction; Nausea is decreased cc3 Point of Care Testing: Blood Glucose: 05/08 20:33 Blood Glucose: 83 mg/dL; cc3 Ranges: Outcome: 23:28 Decision to Hospitalize by Provider. [facility] 05/09 07:59 Patient left the ED. bd NIH Stroke Scale - NIH Stroke Score Date: 05/08/2019 Time: 20:15 Total Score = 1 1a. Level of Consciousness (LOC) - 0(Alert) 1b. Level of Consciousness (LOC) (Year \\T\\ Age) - 0(Both) 1c. LOC Commands (Open \\T\\ Closes Eyes/Combination Saw Operator) - 0(Both) 2. Best Gaze (Lateral Gaze Paresis) - 0(Normal) 3. Visual Field Loss - 0(No visual loss) 4. Facial Palsy - 0(Normal) 5a. Left Arm: Motor (10-second hold) - 0(No drift) 5b. Right Arm: Motor (10-second hold) - 0(No drift) 6a. Left Leg: Motor (5-second hold - always test supine) - 0(No drift) 6b. Right Leg: Motor (5-second hold - always test supine) - 0(No drift) 7. Limb Ataxia (finger/nose \\T\\ heel/castillo - test with eyes open) - 0(Absent) 8. Sensory Loss (pinprick arms/legs/face) - 0(Normal) 9. Best Language: Aphasia (description/naming/reading) - 1(Mild to moderate aphasia) 10. Dysarthria (speech clarity - read or repeat words) - 0(Normal) 11. Extinction and Inattention (visual/tactile/auditory/spatial/personal) - 0(No abnormality) Initials: cc3 Signatures: Dispatcher [employer] Alisa Pierre Corey, MD MD cha Harvey, Martha 1 Tawny Worley RN RN Elodia Harrell am2 Katharine Ha mw2 Jesusita Foster mw3 Shelly Cunningham cc3 Corrections: (The following items were deleted from the chart) 05/08 23: 20:00 General: Appears in no apparent distress. uncomfortable, Behavior is cc3 calm, cooperative, appropriate for age, cc3 23: 20:00 Pain: Denies pain. cc3 cc3 23: 20:00 EENT: No signs and/or symptoms were reported regarding the EENT system. cc3 cc3 23: 20:00 Neuro: Level of Consciousness is awake, alert, obeys commands, Oriented cc3 to person, place, time, situation, Appropriate for age Knurling Machine Operator are equal bilaterally Moves all extremities. Gait is patient states she has difficulty walking that started an hour ago. Speech with expressive aphasia noted, Facial symmetry appears normal, Pupils are PERRLA, Intact Denies blurred vision dizziness, difficulty swallowing, paresthesias numbness headache photophobia diplopia, cc3 : 20:00 Cardiovascular: Denies chest pain, Patient's skin is warm and dry. cc3 cc3 : 20:00 Respiratory: Airway is patent Trachea midline Respiratory effort is even, cc3 unlabored, Respiratory pattern is regular, symmetrical, 3 : 20:00 GI: Abdomen is round non-distended, cc3 cc3 : 20:00 : No signs and/or symptoms were reported regarding the genitourinary cc3 system. 3 : 20:00 Derm: Skin is intact, is healthy with good turgor, Skin is pink, warm \\T\\ cc3 dry. normal, 3 : 20:00 Musculoskeletal: Range of motion: intact in all extremities, patient cc3 states she suddenly have difficulty walking started an hour ago 3 05/09 03:02 05/08 20:15 T-PA (Activase) Screening: Contraindications: cc3 cc3 05/09 03:15 06/ 20:15 Presenting complaint: Patient's sister said "She have difficulty cc3 walking since an hour ago. And I noticed that she has difficulty expressing what she has to say, she's been like that before but today's worst" Patient denies weakness but noticed to have shakiness on her bilateral upper extremities, patient's sister said she's been like that since before but today's worst. No visual disturbance, no neglect but noticed to have expressive aphasia. 3 05/09 03:32 05/08 21:40 Reassessment: Dr. Pruitt said he'll not do an external jugular cc3 vein IV access on the patient, logistics techkeely Erwin tried to cannulate the patient but missed it, charge nurse Tawny informed that patient still needs an IV access. cc3
--- NOTE | 2019-05-08 23:29 | EDPHYS ---
Physician Documentation [facility] Name: Dulce Cerna Age: 63 yrs Sex: Female : 1955 Arrival Date: 05/08/2019 Time: 19:39 Bed 28 Private MD: Brayan Valladares E ED Physician Fletcher Pruitt HPI: 05/08 21:11 This 63 yrs old Female presents to ER via Wheelchair with complaints of Can't christ walk, decreased motor skills. 21:11 The patient's problem is reported as difficulty walking, off balance, weakness, that is christ generalized. Onset: The symptoms/episode began/occurred just prior to arrival. Duration: This was a single incident, The episode is continuous. Context: the episode(s) was witnessed, by family. The symptoms are alleviated by nothing. The symptoms are aggravated by nothing. Associated signs and symptoms: The patient has no apparent associated signs or symptoms. Severity of symptoms: At their worst the symptoms were mild. Patient's baseline: Neuro: alert and fully oriented. The patient has not experienced similar symptoms in the past. Historical: - Allergies: 20:00 PENICILLINS; cc3 20:00 Sulfa (Sulfonamide Antibiotics); cc3 - Home Meds: 20:00 amitriptyline 100 mg Oral tab 1 tab "1 or 2 tablets at bedtime" [Active]; clonazepam 1 cc3 mg Oral tab 1 tab BID PRN [Active]; duloxetine DR 60 mg PO in the AM [Active]; estradiol 2 mg Oral tab 1 tab once daily [Active]; fludrocort 0.1 mg 1 tab DAILY [Active]; omeprazole 40 mg Oral cpDR 1 cap once daily [Active]; oxycodone 10 mg Oral tab 1 tab three times a day [Active]; promethazine 25 mg Oral tab 1 tab BID PRN [Active]; rosuvastatin 10 mg Oral tab 1 tab once daily [Active]; tizanidine 2 mg Oral tab twice a day [Active]; zaleplon 5 mg Oral tab 1 cap "1 or 2 tablets at bedtime." [Active]; - PMHx: 20:00 addisons; Chronic pain; Irritable bowel syndrome; TIA; cc3 - PSHx: 20:00 Hysterectomy; Cholecystectomy; cc3 - Immunization history:: Adult Immunizations up to date. - Social history:: Smoking status: Patient/guardian denies using tobacco, but has a distant history of tobacco abuse. - Ebola Screening: : No symptoms or risks identified at this time. - Family history:: not pertinent. ROS: 21:11 Constitutional: Negative for fever, chills, and weight loss, Eyes: Negative for injury, christ pain, redness, and discharge, ENT: Negative for injury, pain, and discharge, Neck: Negative for injury, pain, and swelling, Cardiovascular: Negative for chest pain, palpitations, and edema, Respiratory: Negative for shortness of breath, cough, wheezing, and pleuritic chest pain, Abdomen/GI: Negative for abdominal pain, nausea, vomiting, diarrhea, and constipation, Back: Negative for injury and pain, : Negative for injury, bleeding, discharge, and swelling, MS/Extremity: Negative for injury and deformity, Skin: Negative for injury, rash, and discoloration, Psych: Negative for depression, anxiety, suicide ideation, homicidal ideation, and hallucinations, Allergy/Immunology: Negative for hives, rash, and allergies, Endocrine: Negative for neck swelling, polydipsia, polyuria, polyphagia, and marked weight changes, Hematologic/Lymphatic: Negative for swollen nodes, abnormal bleeding, and unusual bruising. 21:11 Neuro: Positive for weakness, of the right leg and left leg. Exam: 21:11 Constitutional: This is a well developed, well nourished patient who is awake, alert, christ and in no acute distress. Head/Face: Normocephalic, atraumatic. Eyes: Pupils equal round and reactive to light, extra-ocular motions intact. Lids and lashes normal. Conjunctiva and sclera are non-icteric and not injected. Cornea within normal limits. Periorbital areas with no swelling, redness, or edema. ENT: Nares patent. No nasal discharge, no septal abnormalities noted. Tympanic membranes are normal and external auditory canals are clear. Oropharynx with no redness, swelling, or masses, exudates, or evidence of obstruction, uvula midline. Mucous membranes moist. Neck: Trachea midline, no thyromegaly or masses palpated, and no cervical lymphadenopathy. Supple, full range of motion without nuchal rigidity, or vertebral point tenderness. No Meningismus. Chest/axilla: Normal chest wall appearance and motion. Nontender with no deformity. No lesions are appreciated. Cardiovascular: Regular rate and rhythm with a normal S1 and S2. No gallops, murmurs, or rubs. Normal PMI, no JVD. No pulse deficits. Respiratory: Lungs have equal breath sounds bilaterally, clear to auscultation and percussion. No rales, rhonchi or wheezes noted. No increased work of breathing, no retractions or nasal flaring. Abdomen/GI: Soft, non-tender, with normal bowel sounds. No distension or tympany. No guarding or rebound. No evidence of tenderness throughout. Back: No spinal tenderness. No costovertebral tenderness. Full range of motion. Female : Normal external genitalia. Skin: Warm, dry with normal turgor. Normal color with no rashes, no lesions, and no evidence of cellulitis. MS/ Extremity: Pulses equal, no cyanosis. Neurovascular intact. Full, normal range of motion. Neuro: Awake and alert, GCS 15, oriented to person, place, time, and situation. Cranial nerves II-XII grossly intact. Motor strength 5/5 in all extremities. Sensory grossly intact. Cerebellar exam normal. Normal gait. Psych: Awake, alert, with orientation to person, place and time. Behavior, mood, and affect are within normal limits. 23:29 Radiologist reports: neg, nad christ Vital Signs: 20:01 BP 161 / 82; Pulse 80; Resp 22; Temp 99.1; Pulse Ox 98% on R/A; Weight 76.2 kg; Height mw2 5 ft. 3 in. (160.02 cm); 21:16 BP 154 / 73; Pulse 70; Resp 15 S; Pulse Ox 97% on R/A; cc3 22:15 BP 100 / 63; Pulse 72; Resp 16 S; Pulse Ox 97% on R/A; cc3 23:00 BP 157 / 74; Pulse 75; Resp 13 S; Pulse Ox 96% on R/A; cc3 06 00:30 BP 151 / 84; Pulse 71; Resp 15 S; Pulse Ox 97% on R/A; cc3 01:15 BP 153 / 93; Pulse 71; Resp 14 S; Pulse Ox 96% on R/A; cc3 02:45 BP 157 / 81; Pulse 71; Resp 20 S; Pulse Ox 95% on R/A; cc3 03:15 BP 166 / 83; Pulse 71; Resp 16 S; Pulse Ox 96% on R/A; 3 04:19 BP 127 / 69; Pulse 68; Resp 11; Temp 98.4; Pulse Ox 97% on R/A; [facility] 05/08 20:01 Body Mass Index 29.76 (76.20 kg, 160.02 cm) [facility] NIH Stroke Scale Scores: 05/08 20:15 NIHSS Score: 1 3 MDM: 20:54 Patient medically screened. [facility] 23:29 Data reviewed: vital signs, nurses notes, lab test result(s), EKG, radiologic studies, [facility] CT scan, plain films. 05/08 20:30 Order name: Basic Metabolic Panel [facility] 05/08 20:30 Order name: CBC with Diff; Complete Time: 21:12 [facility] 05/08 20:30 Order name: Glucose, Ancillary Testing; Complete Time: 21:12 [facility] 05/08 20:30 Order name: Protime (+inr); Complete Time: 21:12 [facility] 05/08 20:30 Order name: Ptt, Activated; Complete Time: 21:12 [facility] 05/08 20:31 Order name: Basic Metabolic Panel; Complete Time: 21:12 [facility] 05/08 20:30 Order name: CT Stroke Brain w/o Contrast; Complete Time: 21:12 [facility] 05/08 20:30 Order name: Stroke CXR 1 View; Complete Time: 23:25 [facility] 05/08 21:11 Order name: Urine Culture [facility] 05/08 22:36 Order name: Urine Dipstick--Ancillary (enter results); Complete Time: 23:25 ar5 05/09 06:11 Order name: CBC with Automated Diff [facility] 05/09 06:19 Order name: Basic Metabolic Panel [facility] 05/09 06:30 Order name: Magnesium [facility] 05/09 07:16 Order name: CBC Smear Scan [facility] 05/08 20:30 Order name: EKG; Complete Time: 20:32 [facility] 05/08 20:30 Order name: Accucheck; Complete Time: 20:30 [facility] 05/08 20:30 Order name: Cardiac monitoring; Complete Time: 20:30 [facility] 05/08 20:30 Order name: EKG - Nurse/Tech; Complete Time: 21:05 [facility] 05/08 20:30 Order name: IV Saline Lock; Complete Time: 20:30 3 05/08 20:30 Order name: Labs collected and sent; Complete Time: 21:05 3 05/08 20:30 Order name: NPO; Complete Time: 20:31 3 05/08 20:30 Order name: O2 Per Protocol; Complete Time: 20:31 3 05/08 20:30 Order name: O2 Sat Monitoring; Complete Time: 20:30 [facility] 05/08 20:30 Order name: Stroke Swallow Screen; Complete Time: 21:09 3 05/08 21:11 Order name: Urine Dipstick-Ancillary (obtain specimen); Complete Time: 22:52 christ Administered Medications: 23:42 Drug: Solu-CORTEF 100 mg Route: IVP; Site: right antecubital; bb 05/09 00:00 Follow up: Response: No adverse reaction cc3 00:00 Drug: Potassium Effervescent Tablet 25 mEq Route: PO; cc3 01:30 Follow up: Response: No adverse reaction cc3 02:25 Drug: Zofran 4 mg Route: IVP; Site: right antecubital; cc3 03:02 Follow up: Response: No adverse reaction; Nausea is decreased cc3 Point of Care Testing: Blood Glucose: 05/08 20:33 Blood Glucose: 83 mg/dL; cc3 Ranges: Critical Glucose Levels:Adult <50 mg/dl or >400 mg/dl <40 mg/dl or >180 mg/dl Disposition: 05/08/19 23:28 Hospitalization ordered by Alicia Esquivel for Inpatient Admission. Preliminary diagnosis are Weakness - non ambulatory, Addisonian crisis - history, Hypokalemia. - Bed requested for Telemetry/MedSurg (Inpatient). - Status is Inpatient Admission. bd - Condition is Fair. - Problem is new. - Symptoms have improved. UTI on Admission? No NIH Stroke Scale - NIH Stroke Score Date: 05/08/2019 Time: 20:15 Total Score = 1 1a. Level of Consciousness (LOC) - 0(Alert) 1b. Level of Consciousness (LOC) (Year \\T\\ Age) - 0(Both) 1c. LOC Commands (Open \\T\\ Closes Eyes/Health Promoter) - 0(Both) 2. Best Gaze (Lateral Gaze Paresis) - 0(Normal) 3. Visual Field Loss - 0(No visual loss) 4. Facial Palsy - 0(Normal) 5a. Left Arm: Motor (10-second hold) - 0(No drift) 5b. Right Arm: Motor (10-second hold) - 0(No drift) 6a. Left Leg: Motor (5-second hold - always test supine) - 0(No drift) 6b. Right Leg: Motor (5-second hold - always test supine) - 0(No drift) 7. Limb Ataxia (finger/nose \\T\\ heel/castillo - test with eyes open) - 0(Absent) 8. Sensory Loss (pinprick arms/legs/face) - 0(Normal) 9. Best Language: Aphasia (description/naming/reading) - 1(Mild to moderate aphasia) 10. Dysarthria (speech clarity - read or repeat words) - 0(Normal) 11. Extinction and Inattention (visual/tactile/auditory/spatial/personal) - 0(No abnormality) Initials: cc3 Signatures: Dispatcher [employer] EDMS Alisa Godwin Corey, MD MD cha Sanford, Demi ds1 Tawny Worley, RN RN Dawn Calabrese RN RN Shelly Roth cc3 Corrections: (The following items were deleted from the chart) 05/09 03:43 05/08 23:28 Hospitalization Ordered by Alicia Esquivel MD for Inpatient ds1 Admission. Preliminary diagnosis is Weakness - non ambulatory; Addisonian crisis - history; Hypokalemia. Bed requested for Telemetry/MedSurg (Inpatient). Status is Inpatient Admission. Condition is Fair. Problem is new. Symptoms have improved. UTI on Admission? No. christ 05/09 03:44 03:43 05/08/2019 23:28 Hospitalization Ordered by Alicia Esquivel MD for ds1 Inpatient Admission. Preliminary diagnosis is Weakness - non ambulatory; Addisonian crisis - history; Hypokalemia. Bed requested for [facility] ER HOLD. Status is Inpatient Admission. Condition is Fair. Problem is new. Symptoms have improved. UTI on Admission? No. ds1 06:10 03:44 05/08/2019 23:28 Hospitalization Ordered by Alicia Esquivel MD for cg Inpatient Admission. Preliminary diagnosis is Weakness - non ambulatory; Addisonian crisis - history; Hypokalemia. Bed requested for [facility] ER HOLD. Status is Inpatient Admission. Condition is Fair. Problem is new. Symptoms have improved. UTI on Admission? No. ds1 07:59 06:10 05/08/2019 23:28 Hospitalization Ordered by Alicia Esquivel MD for bd Inpatient Admission. Preliminary diagnosis is Weakness - non ambulatory; Addisonian crisis - history; Hypokalemia. Bed requested for Telemetry/MedSurg (Inpatient). Status is Inpatient Admission. Condition is Fair. Problem is new. Symptoms have improved. UTI on Admission? No. cg
[2019-05-09] MEDS ORDERED: POTASSIUM 25 MEQ EFFERV TAB ONE (00:19)
--- NOTE | 2019-05-09 01:24 | P.HP ---
Certification for Inpatient Patient admitted to: Observation With expected LOS: <2 Midnights Practitioner: I am a practitioner with admitting privileges, knowledge of patient current condition, hospital course, and medical plan of care. Services: Services provided to patient in accordance with Admission requirements found in Title 42 Section 412.3 of the Code of Federal Regulations Patient History Date of Service: 05/09/19 Reason for admission: addisonina crisis History of Present Illness: Ms Cerna is a 63 years old woman with history of Davie's disease, IBS, chronic pain, who start last evening with progressive generalized weakness. The patient states that she was not able to stand up or walk. No history of fever, chills, nausea, vomiting or diarrhea. Lab work shows normal WBC count. CT brain no acute abnormalities. The patient is afebrile, BP 151/70. She states that has been feeling like that previously when she had addisonina crisis. She usually take extra hydrocortisone pills when she feels weak, but did not take it today. Allergies Penicillins Allergy (Verified 03/16/19 23:40) Shortness of breath Sulfa (Sulfonamide Antibiotics) [Sulfa(Sulfonamide Antibiotics)] Allergy ( Verified 03/16/19 23:40) Shortness of breath NSAIDS Adverse Reaction (Uncoded 03/16/19 23:40) Kidney Problems Home medications list reviewed: Yes Home Medications: Amitriptyline [Elavil*] 100 mg PO BEDTIME 03/17/19 Duloxetine HCl [Cymbalta] 90 mg PO DAILY 03/17/19 Estradiol [Estrace] 2 mg PO BEDTIME 03/17/19 Fludrocortisone [Florinef *] 0.1 mg PO DAILY 03/17/19 Hydrocortisone [Cortef*] 20 mg PO BIDL 03/17/19 Omeprazole [Prilosec] 40 mg PO DAILY 03/17/19 Promethazine HCl 25 mg PO BIDP PRN 03/17/19 Rosuvastatin [Crestor*] 10 mg PO BEDTIME 03/17/19 Zaleplon 10 mg PO BEDTIME 03/17/19 clonazePAM [Clonazepam] 1 mg PO BIDP PRN 03/17/19 Oxycodone HCl [Oxyir] 10 mg PO TID PRN 03/20/19 Albuterol Sulfate [Proair Hfa] 8.5 gm IH TID PRN #1 hfa.aer.ad 03/21/19 Benzonatate [Tessalon Perle*] 200 mg PO TID PRN #15 cap 03/21/19 Guaifenesin [Mucinex] 600 mg PO BID #15 tab.er.12h 03/21/19 Levofloxacin [Levaquin] 500 mg PO DAILY #7 tablet 03/21/19 - Past Medical/Surgical History Diabetic: No -: Davie's -: Irritable Bowel Syndrome -: TIA -: Chronic back pain -: Cholecystectomy -: Appy -: -: Hysterectomy -: Explore Lap - Family History Mother -: Cancer, Other (see notes) Notes: Asthma. Rheumatoid Arthritis - Social History Smoking Status: Never smoker Alcohol use: No CD- Drugs: Yes Caffeine use: No Place of Residence: Home Review of Systems 10-point ROS is otherwise unremarkable Physical Examination - Physical Exam General: Alert, In no apparent distress HEENT: Atraumatic, PERRLA, Mucous membr. moist/pink, EOMI, Sclerae nonicteric Neck: Supple, 2+ carotid pulse no bruit, No LAD, Without JVD or thyroid abnormality Respiratory: Clear to auscultation bilaterally, Normal air movement Cardiovascular: Regular rate/rhythm, Normal S1 S2 Gastrointestinal: Normal bowel sounds, No tenderness Musculoskeletal: No tenderness Integumentary: No rashes Neurological: Normal speech, Normal tone, Normal affect Lymphatics: No axilla or inguinal lymphadenopathy - Studies Laboratory Data (last 24 hrs) 05/08/19 20:31: PT 12.0, INR 1.02, APTT 33.8 05/08/19 20:31: WBC 7.3, Hgb 11.1 L, Hct 34.5 L, Plt Count 255 05/08/19 20:31: Sodium 141, Potassium 3.4 L, BUN 11, Creatinine 0.73, Glucose 77 Assessment and Plan - Problems (Diagnosis) (1) Addisonian crisis Current Visit: Yes Status: Acute (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 Will continue with IV hydrocortisone. Will try to contact Dr Lund in AM for evaluation and recommendations. - Advance Directives Does patient have a Living Will: Yes Does patient have a Durable POA for Healthcare: Yes - Code Status/Comfort Care Code Status Assessed: Yes Code Status: Full Code
[2019-05-09] MEDS ORDERED: ONDANSETRON 4 MG/2 ML VIAL ONE (02:37)
[2019-05-09 05:43] VITALS: BMI 27.4
[2019-05-09 06:07] LABS: Absolute Lymphocytes (CBC) 0.8 K/uL (0.7-4.9); Basophils % 0.5 % (0-1.3); Eosinophils % 0.2 % (0-4.4); Hematocrit 32.3 % (36.0-45.0); Lymphocytes % 10.3 % (15.3-44.8); MPV 8.6 fL (7.6-11.3); Monocytes % 1.8 % (3.3-12.3); RBC Red Blood Cell Count 3.86 M/uL (3.86-4.86)
[2019-05-09 06:18] LABS: Potassium 3.7 mmol/L (3.5-5.1)
[2019-05-09 06:30] LABS: Magnesium 2.1 mg/dL (1.8-2.4)
[2019-05-09 07:12] LABS: Blood Morphology Comment NOT SEEN (NOT SEEN); Platelet Estimate ADEQ; Urine White Blood Cell Casts OK
[2019-05-09] MEDS ORDERED: POTASSIUM CL SA 10 MEQ TAB PO ONE (09:00)
[2019-05-09] MEDS ORDERED: HYDROCORTISONE SUC 100 MG INJ IV ONE (09:00)
--- NOTE | 2019-05-09 09:08 | EKG ---
Test Date: 2019-05-08 Test Time: 20:56:13 Instrument Fitter: SHABNAM MEASUREMENT RESULTS: Intervals: Rate: 73 RI: 148 QRSD: 88 QT: 426 QTc: 469 Sheldon: P: 51 RI: 148 QRS: -10 T: 78 INTERPRETIVE STATEMENTS: Normal sinus rhythm Left ventricular hypertrophy with repolarization abnormality Abnormal ECG Compared to ECG 10/31/2018 15:15:17 Early repolarization now present Electronically Signed On 05-09-19 09:07:22 CDT by Doug Kee
[2019-05-09] MEDS: ENOXAPARIN 40 MG/0.4 ML SQ SCH (09:24)
[2019-05-09] MEDS: ONDANSETRON 4 MG/2 ML VIAL IV PRN ×3 (09:24→20:28)
--- NOTE | 2019-05-09 11:07 | RAD REPORT ---
EXAM DESCRIPTION: MRI - Brain Wo Cont - 05/09/2019 10:24 am CLINICAL HISTORY: AMS Headache, drowsiness, CVA symptomology COMPARISON: Ct Stroke Brain Wo Cont dated 05/08/2019 TECHNIQUE: Multi-sequence, multiplanar MR imaging of the brain was performed without contrast. FINDINGS: No intracranial hemorrhage, hydrocephalus or extra-axial fluid collections.Moderate conflu ent T2/FLAIR hyperintensity in the periventricular and deep white matter is present compatible with c hronic microvascular ischemic changes. No edema or shift of midline structures. No findings to suspec t brain mass. DWI is negative for acute CVA. Midline structures are normally formed. Mastoid air cells and paranasal sinuses are clear. IMPRESSION: No acute or concerning intracranial abnormalities.
[2019-05-09] MEDS: OXYCODONE HCL 5 MG TAB PO PRN ×2 (15:07→22:08)
[2019-05-09] MEDS ORDERED: AMITRIPTYLINE 50 MG TAB PO SCH (21:00)
[2019-05-09] MEDS ORDERED: ESTRADIOL 2 MG PO SCH (21:00)
[2019-05-09] MEDS ORDERED: ROSUVASTATIN 10 MG TAB PO SCH (21:00)
[2019-05-10] MEDS ORDERED: TRAMADOL HCL 50 MG TAB PO ONE (02:14)
[2019-05-10 04:55] LABS: Absolute Lymphocytes (CBC) 2.5 K/uL (0.7-4.9); Basophils % 0.4 % (0-1.3); Hematocrit 31.7 % (36.0-45.0); Lymphocytes % 30.4 % (15.3-44.8); MPV 8.4 fL (7.6-11.3); Monocytes % 7.6 % (3.3-12.3); RBC Red Blood Cell Count 3.75 M/uL (3.86-4.86)
[2019-05-10 05:15] LABS: Potassium 3.6 mmol/L (3.5-5.1)
[2019-05-10 05:52] VITALS: O2SAT 97
[2019-05-10] MEDS ORDERED: POTASSIUM CL SA 10 MEQ TAB PO ONE (06:11)
[2019-05-10] MEDS: OXYCODONE HCL 5 MG TAB PO PRN (06:27)
[2019-05-10] MEDS ORDERED: PANTOPRAZOLE 40MG TABLET PO SCH (06:30)
[2019-05-10] MEDS: ONDANSETRON 4 MG/2 ML VIAL IV PRN (06:52)
[2019-05-10] MEDS ORDERED: DULOXETINE 30 MG CAP PO SCH (09:00)
[2019-05-10] MEDS ORDERED: FLUDROCORTISONE 0.1 MG TAB PO SCH (09:00)
[2019-05-10] MEDS: ENOXAPARIN 40 MG/0.4 ML SQ SCH (09:13)
[2019-05-10 10:30] VITALS: BP 140/79; TEMP 97.7
--- NOTE | 2019-05-10 10:57 | P.SSS ---
Patient History Date of Service: 05/10/19 Reason for admission: addisonina crisis History of Present Illness: Ms Cerna is a 63 years old woman with history of Bruce's disease, IBS, chronic pain, who start last evening with progressive generalized weakness. The patient states that she was not able to stand up or walk. No history of fever, chills, nausea, vomiting or diarrhea. Lab work shows normal WBC count. CT brain no acute abnormalities. The patient is afebrile, BP 151/70. She states that has been feeling like that previously when she had addisonina crisis. She usually take extra hydrocortisone pills when she feels weak, but did not take it today. Allergies Penicillins Allergy (Verified 03/16/19 23:40) Shortness of breath Sulfa (Sulfonamide Antibiotics) [Sulfa(Sulfonamide Antibiotics)] Allergy ( Verified 03/16/19 23:40) Shortness of breath NSAIDS Adverse Reaction (Uncoded 03/16/19 23:40) Kidney Problems Home Medications: Amitriptyline [Elavil*] 200 mg PO BEDTIME 03/17/19 Estradiol [Estrace] 2 mg PO BEDTIME 03/17/19 Fludrocortisone [Florinef *] 0.1 mg PO DAILY 03/17/19 Hydrocortisone [Cortef*] 20 mg PO DAILY 03/17/19 Omeprazole [Prilosec] 40 mg PO DAILY 03/17/19 Promethazine HCl 25 mg PO BIDP PRN 03/17/19 Rosuvastatin [Crestor*] 10 mg PO BEDTIME 03/17/19 Zaleplon 10 mg PO BEDTIME 03/17/19 clonazePAM [Clonazepam] 1 mg PO BIDP PRN 03/17/19 Oxycodone HCl [Oxyir] 10 mg PO TID PRN 03/20/19 Duloxetine HCl [Cymbalta] 90 mg PO DAILY 05/09/19 Hydrocortisone [Cortef*] 10 mg PO DAILY 05/09/19 - Past Medical/Surgical History Has patient received pneumonia vaccine in the past: Yes 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 Rheumatoid Arthritis - Social History Smoking Status: Former smoker Alcohol use: No CD- Drugs: No Caffeine use: Yes Place of Residence: Home Review of Systems 10-point ROS is otherwise unremarkable Physical Examination - Vital Signs Temperature: 97.7 F Blood Pressure: 140/79 Pulse: 66 Respirations: 18 Pulse Ox (%): 93 - Physical Exam General: Alert, In no apparent distress HEENT: Atraumatic, PERRLA, Mucous membr. moist/pink, EOMI, Sclerae nonicteric Neck: Supple, 2+ carotid pulse no bruit, No LAD, Without JVD or thyroid abnormality Respiratory: Clear to auscultation bilaterally, Normal air movement Cardiovascular: Regular rate/rhythm, Normal S1 S2 Gastrointestinal: Normal bowel sounds, No tenderness Musculoskeletal: No tenderness Integumentary: No rashes Neurological: Normal gait, Normal speech, Normal strength at 5/5 x4 extr, Normal tone, Normal affect Lymphatics: No axilla or inguinal lymphadenopathy - Diagnosis (Problem(s)) (1) Addisonian crisis Current Visit: Yes Status: Resolved Plan: Crisis resolved after IV steroids here in the hospital and monitoring for 24 hr. 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2 - Mixed hyperlipidemia (7) Irritable bowel disease Onset Date: 04/08/18 Current Visit: No Status: Chronic Qualifiers: Irritable bowel syndrome type: unspecified Treatment Summary: Patient initially started on IV steroids here in the hospital for Brogue crisis. Did well overall. And thus discharged home under stable condition - Disposition Disposition: ROUTINE DISCHARGE Condition: GOOD Diet: Regular Activity: Ad hossein
== END 2019-05-10 11:29 | disposition home or self-care (01) ==
LOC: ER 19:35 → ERHOLD 05-09 01:33 → 4TH 05-09 07:46
PROVIDERS: ADMIT Internal Medicine; ATTEND Internal Medicine
DX: E27.2 Addisonian crisis (principal); K58.9 Irritable bowel syndrome, unspecified; G89.4 Chronic pain syndrome; F41.8 Other specified anxiety disorders; K21.9 Gastro-esophageal reflux disease without esophagitis; E78.2 Mixed hyperlipidemia; Z88.0 Allergy status to penicillin; Z88.2 Allergy status to sulfonamides; Z86.73 Personal history of transient ischemic attack (TIA), and cerebral infarction without residual deficits
CPT/HCPCS: 93005; 87088; 85025 ×3; 87086; 80048 ×3; 36415 ×2; 83735; 85610; 82962; 85730; 81003; 70450; 71045; 70551; 97161; 96375; 96374; 99285; J1650 ×2; J1720 ×2; J2405 ×4; G0378 ×2

== ENCOUNTER 2019-05-23 19:09 | Observation (INO) | payer OTHER ==
--- OUTSIDE RECORDS SUMMARY | 2019-05-23 19:12 | XMS REPORT ---
:1955 [facility] Address [address] Sidhu [address] [place] [id number] Care Team Providers Name Role Phone Unavailable Unavailable Unavailable Problems This patient has no known problems. Allergies, Adverse Reactions, Alerts This patient has no known allergies or adverse reactions. Medications This patient has no known medications.
--- NOTE | 2019-05-23 19:43 | ER ---
Nurse's Notes [facility] Name: Dulce Cerna Age: 63 yrs Sex: Female : 1955 Arrival Date: 05/23/2019 Time: 19:11 Bed 7 Private MD: Diagnosis: Fall due to bumping against object;Weakness;Abdominal tenderness;Other chronic pain;Altered mental status, unspecified;Addisonian crisis;Anemia, unspecified;Multiple fractures of ribs, left side-7 and 8, anterior Presentation: 05/23 19:12 Presenting complaint: EMS states: Patient fell today from standing and family was aj unable to get her up. Family requested patient be transported to ER as they did not feel they would be able to pick the patient up the next time she falls. No LOC denies pain. Care prior to arrival: None. Mechanism of Injury: Fall from standing position. Trauma event details: Injury occurred in the [facility], Injury occurred: at home. Injury occurred: May 23, 2019 Injury occurred at: 18:50. 19:12 Method Of Arrival: EMS: [facility] aj 19:12 Acuity: TRACY 3 aj 19:17 Transition of care: patient was not received from another setting of care. Onset of aj symptoms was May 23, 2019 at 18:50. Risk Assessment: Do you want to hurt yourself or someone else? Patient reports no desire to harm self or others. Initial Sepsis Screen: Does the patient meet any 2 criteria? No. Patient's initial sepsis screen is negative. Does the patient have a suspected source of infection? No. Patient's initial sepsis screen is negative. Trauma Activation: Not Applicable Physician: ED Physician; Name: ; Notified At: ; Arrived At: Physician: General Surgeon; Name: ; Notified At: ; Arrived At: Physician: Radiology; Name: ; Notified At: ; Arrived At: Physician: Respiratory; Name: ; Notified At: ; Arrived At: Physician: Lab; Name: ; Notified At: ; Arrived At: Historical: - Allergies: 19:20 PENICILLINS; aj 19:20 Sulfa (Sulfonamide Antibiotics); aj 19:20 "Pain Pills"; aj - Home Meds: 19:20 amitriptyline 100 mg Oral tab 1 tab "1 or 2 tablets at bedtime" [Active]; clonazepam 1 aj mg Oral tab 1 tab BID PRN [Active]; duloxetine DR 60 mg PO in the AM [Active]; estradiol 2 mg Oral tab 1 tab once daily [Active]; fludrocort 0.1 mg 1 tab DAILY [Active]; omeprazole 40 mg Oral cpDR 1 cap once daily [Active]; oxycodone 10 mg Oral tab 1 tab three times a day [Active]; promethazine 25 mg Oral tab 1 tab BID PRN [Active]; rosuvastatin 10 mg Oral tab 1 tab once daily [Active]; tizanidine 2 mg Oral tab twice a day [Active]; zaleplon 5 mg Oral tab 1 cap "1 or 2 tablets at bedtime." [Active]; - PMHx: 19:20 addisons; Chronic pain; Irritable bowel syndrome; TIA; aj - PSHx: 19:20 Hysterectomy; Cholecystectomy; aj - Immunization history: Last tetanus immunization: - up to date. - Social history:: Smoking status: Patient/guardian denies using tobacco. - Ebola Screening: : Patient negative for fever greater than or equal to 101.5 degrees Fahrenheit, and additional compatible Ebola Virus Disease symptoms Patient denies exposure to infectious person Patient denies travel to an Ebola-affected area in the 21 days before illness onset No symptoms or risks identified at this time. Screenin:12 Abuse screen: Denies threats or abuse. Denies injuries from another. Tuberculosis aj screening: No symptoms or risk factors identified. 19:30 Nutritional screening: No deficits noted. Fall Risk Fall in past 12 months (25 points). tl2 IV access (20 points). Mental Status- Overestimates/Forgets Limitations (15 pts.). Primary Survey: 19:12 NO uncontrolled hemorrhage observed. Breathing/Chest: Respiratory pattern: regular, aj Respiratory effort: spontaneous, unlabored. Circulation: Skin color: pink, Skin temperature: warm, dry. Disability Alert. Exposure/Environment: All clothing and personal items were removed. Forensic evidence collection is not deemed to be indicated at this time. Items placed in patient belonging bag. 20:00 Reassessment Airway Airway Patent Oxygen No O2 Breathing/Chest Respiratory pattern tl2 Regular Respiratory effort Spontaneous Unlabored Breath sounds Clear Chest inspection Symmetrical Circulation Heart rhythm Sinus rhythm Disability Verbal stimuli. Assessment: 19:12 General: Appears in no apparent distress. comfortable, Behavior is calm, cooperative, aj drowsy. Pain: Denies pain. Neuro: Level of Consciousness is obeys commands, obtunded, Patient responds to verbal stimuli. Oriented to person, place, time, situation. Respiratory: Airway is patent Respiratory effort is even, unlabored, Respiratory pattern is regular, symmetrical. Derm: Skin is intact, is healthy with good turgor, Skin is pink, warm \\T\\ dry. normal. 19:30 General: Appears in no apparent distress. comfortable, Behavior is drowsy, listless. tl2 Pain: Denies pain. Neuro: Level of Consciousness is obeys commands, lethargic, listless, responds to voice. Oriented to person, place, time, situation. Cardiovascular: Denies chest pain. Respiratory: Airway is patent Respiratory effort is even, unlabored, Respiratory pattern is regular, symmetrical. GI: No signs and/or symptoms were reported involving the gastrointestinal system. : No signs and/or symptoms were reported regarding the genitourinary system. Derm: Skin is pale. 20:30 Reassessment: Patient appears in no apparent distress at this time. Patient and/or tl2 family updated on plan of care and expected duration. Pain level reassessed. pt continues to remain drowsy and falls asleep easily. Vitals are stable. 22:00 Reassessment: Patient appears in no apparent distress at this time. pt sleeping, RR tl2 even and unlabored. VSS. 23:30 Reassessment: pt stable for transport to floor. tl2 Vital Signs: 19:12 BP 138 / 71; Pulse 76; Resp 14; Temp 99.0(O); Pulse Ox 96% ; Weight 77.11 kg; Height 5 aj ft. 2 in. (157.48 cm); 20:00 BP 152 / 81; Pulse 70; Resp 14; Pulse Ox 94% on R/A; tl2 21:00 BP 132 / 83; Pulse 72; Resp 14; Pulse Ox 95% on R/A; tl2 22:24 BP 174 / 84; Pulse 66; Resp 13; Pulse Ox 94% on R/A; tl2 23:00 BP 154 / 93; Pulse 64; Resp 14; Pulse Ox 96% on R/A; tl2 05/24 00:00 BP 173 / 86; Pulse 64; Resp 14; Pulse Ox 96% on R/A; tl2 05/23 19:12 Body Mass Index 31.09 (77.11 kg, 157.48 cm) aj Fisk Coma Score: 05/23 19:12 Eye Response: spontaneous(4). Verbal Response: oriented(5). Motor Response: obeys aj commands(6). Total: 15. 20:00 Eye Response: spontaneous(4). Verbal Response: oriented(5). Motor Response: obeys tl2 commands(6). Total: 15. Trauma Score (Adult): 19:12 Eye Response: spontaneous(1); Verbal Response: oriented(1); Motor Response: obeys aj commands(2); Systolic BP: > 89 mm Hg(4); Respiratory Rate: 10 to 29 per min(4); Fisk Score: 15; Trauma Score: 12 20:00 Eye Response: spontaneous(1); Verbal Response: oriented(1); Motor Response: obeys tl2 commands(2); Systolic BP: > 89 mm Hg(4); Respiratory Rate: 10 to 29 per min(4); Mariana Score: 15; Trauma Score: 12 ED Course: 19:11 Patient arrived in ED. aj 19:12 Patient has correct armband on for positive identification. aj 19:12 Patient maintains SpO2 saturation greater than 95% on room air. aj 19:14 Triage completed. aj 19:20 Arm band placed on left wrist. Patient placed in an exam room, on a stretcher, on pulse aj oximetry. 19:23 Fletcher Pruitt MD is Attending Physician. christ 19:41 Estella Mcdonnell MD is Hospitalizing Provider. christ 20:00 Thermoregulation: warm blanket given to patient. tl2 20:10 Initial lab(s) drawn, by me, sent to lab. First set of blood cultures drawn by me. fc Inserted 18 gauge 10 cm midline to right upper brachial vein on first attempt. Line with good blood return and flushes well. Blood collected. 20:18 Kaleigh Coon, ROYAL is Primary Nurse. tl2 20:40 XRAY Chest (1 view) In Process Unspecified. EDMS 20:46 CT Traumagram (Head C Spine CAP wo con) In Process Unspecified. EDMS 21:56 Straight cath inserted, using sterile technique, 18 Fr. Specimen obtained. Returned tl2 clear yellow urine. Patient tolerated well. 05/24 00:00 No provider procedures requiring assistance completed. Patient admitted, IV remains in tl2 place. Administered Medications: 05/23 20:22 Drug: NS 0.9% 250 ml Route: IV; Rate: bolus; Site: right upper arm; tl2 23:00 Follow up: IV Status: Completed infusion; IV Intake: 250ml tl2 20:23 Drug: NS 0.9% 1000 ml Route: IV; Rate: 125 ml/hr; Site: right upper arm; tl2 05/24 00:09 Follow up: IV Status: Infusion continued upon admission tl2 05/23 20:27 Drug: Pepcid 20 mg Route: IVP; Site: right upper arm; tl2 05/24 00:09 Follow up: Response: No adverse reaction tl2 05/23 20:28 Drug: Solu-CORTEF 100 mg Route: IVP; Site: right upper arm; tl2 05/24 00:09 Follow up: Response: No adverse reaction tl2 05/23 21:23 Drug: ProTONIX 40 mg Route: IVP; Site: right upper arm; tl2 05/24 00:08 Follow up: Response: No adverse reaction tl2 Intake: 05/23 23:00 IV: 250ml; Total: 250ml. tl2 05/24 00:07 IV: 300ml (IV Fluid); Total: 550ml. tl2 Output: 00:07 Urine: 500ml (Straight Cath); Total: 500ml. tl2 Outcome: 05/23 19:42 Decision to Hospitalize by Provider. christ 05/24 00:00 Admitted to Tele accompanied by [facility], via stretcher, room 402, with chart, Report tl2 called to ROYAL Zabala Condition: stable Discharge instructions given to family, Instructed on the need for admit. 00:07 Patient's length of stay in the Emergency Department was greater than 2 hours. tl2 00:10 Patient left the ED. tl2 Signatures: Dispatcher [employer] EDElodia Murillo RN RN aj Anderson, Corey, MD MD cha Chretien, Felicia, RN RN fc Knox, Taylor, RN RN tl2 Corrections: (The following items were deleted from the chart) 05/23 22:27 21:56 Straight cath inserted, using sterile technique, 16 Fr. Specimen obtained. tl2 Returned clear yellow urine. Patient tolerated well. valerie
--- NOTE | 2019-05-23 19:44 | EDPHYS ---
Physician Documentation [facility] Name: Dulce Cerna Age: 63 yrs Sex: Female : 1955 Arrival Date: 05/23/2019 Time: 19:11 Bed 7 Private MD: ED Physician Fletcher Pruitt HPI: 05/23 19:37 This 63 yrs old Female presents to ER via EMS with complaints of Fall Injury. christ 19:37 Details of fall: The patient fell from an upright position, while standing, while christ walking. Onset: The symptoms/episode began/occurred. Associated injuries: The patient sustained injury to the abdomen. Severity of symptoms: At their worst the symptoms were mild, moderate, in the emergency department the symptoms are unchanged. The patient has not experienced similar symptoms in the past. Historical: - Allergies: 19:20 PENICILLINS; aj 19:20 Sulfa (Sulfonamide Antibiotics); aj 19:20 "Pain Pills"; aj - Home Meds: 19:20 amitriptyline 100 mg Oral tab 1 tab "1 or 2 tablets at bedtime" [Active]; clonazepam 1 aj mg Oral tab 1 tab BID PRN [Active]; duloxetine DR 60 mg PO in the AM [Active]; estradiol 2 mg Oral tab 1 tab once daily [Active]; fludrocort 0.1 mg 1 tab DAILY [Active]; omeprazole 40 mg Oral cpDR 1 cap once daily [Active]; oxycodone 10 mg Oral tab 1 tab three times a day [Active]; promethazine 25 mg Oral tab 1 tab BID PRN [Active]; rosuvastatin 10 mg Oral tab 1 tab once daily [Active]; tizanidine 2 mg Oral tab twice a day [Active]; zaleplon 5 mg Oral tab 1 cap "1 or 2 tablets at bedtime." [Active]; - PMHx: 19:20 addisons; Chronic pain; Irritable bowel syndrome; TIA; aj - PSHx: 19:20 Hysterectomy; Cholecystectomy; aj - Immunization history: Last tetanus immunization: - up to date. - Social history:: Smoking status: Patient/guardian denies using tobacco. - Ebola Screening: : Patient negative for fever greater than or equal to 101.5 degrees Fahrenheit, and additional compatible Ebola Virus Disease symptoms Patient denies exposure to infectious person Patient denies travel to an Ebola-affected area in the 21 days before illness onset No symptoms or risks identified at this time. ROS: 19:38 Constitutional: Negative for fever, chills, and weight loss, Eyes: Negative for injury, christ pain, redness, and discharge, ENT: Negative for injury, pain, and discharge, Neck: Negative for injury, pain, and swelling, Cardiovascular: Negative for chest pain, palpitations, and edema, Respiratory: Negative for shortness of breath, cough, wheezing, and pleuritic chest pain, Back: Negative for injury and pain, : Negative for injury, bleeding, discharge, and swelling, MS/Extremity: Negative for injury and deformity, Skin: Negative for injury, rash, and discoloration, Psych: Negative for depression, anxiety, suicide ideation, homicidal ideation, and hallucinations, Allergy/Immunology: Negative for hives, rash, and allergies, Endocrine: Negative for neck swelling, polydipsia, polyuria, polyphagia, and marked weight changes, Hematologic/Lymphatic: Negative for swollen nodes, abnormal bleeding, and unusual bruising. 19:38 Abdomen/GI: Positive for abdominal pain. 19:38 Skin: Positive for pallor. 19:38 Neuro: Positive for weakness. Exam: 19:39 Constitutional: This is a well developed, well nourished patient who is awake, alert, christ and in no acute distress. Head/Face: Normocephalic, atraumatic. Eyes: Pupils equal round and reactive to light, extra-ocular motions intact. Lids and lashes normal. Conjunctiva and sclera are non-icteric and not injected. Cornea within normal limits. Periorbital areas with no swelling, redness, or edema. ENT: Nares patent. No nasal discharge, no septal abnormalities noted. Tympanic membranes are normal and external auditory canals are clear. Oropharynx with no redness, swelling, or masses, exudates, or evidence of obstruction, uvula midline. Mucous membranes moist. Neck: Trachea midline, no thyromegaly or masses palpated, and no cervical lymphadenopathy. Supple, full range of motion without nuchal rigidity, or vertebral point tenderness. No Meningismus. Chest/axilla: Normal chest wall appearance and motion. Nontender with no deformity. No lesions are appreciated. Cardiovascular: Regular rate and rhythm with a normal S1 and S2. No gallops, murmurs, or rubs. Normal PMI, no JVD. No pulse deficits. Respiratory: Lungs have equal breath sounds bilaterally, clear to auscultation and percussion. No rales, rhonchi or wheezes noted. No increased work of breathing, no retractions or nasal flaring. Back: No spinal tenderness. No costovertebral tenderness. Full range of motion. Female : Normal external genitalia. Skin: Warm, dry with normal turgor. Normal color with no rashes, no lesions, and no evidence of cellulitis. Psych: Awake, alert, with orientation to person, place and time. Behavior, mood, and affect are within normal limits. 19:39 Abdomen/GI: Inspection: distension, Bowel sounds: normal, Palpation: mild abdominal tenderness, in all quadrants, Liver: no appreciated palpable abnormalities, Hernia: not appreciated. Vital Signs: 19:12 BP 138 / 71; Pulse 76; Resp 14; Temp 99.0(O); Pulse Ox 96% ; Weight 77.11 kg; Height 5 aj ft. 2 in. (157.48 cm); 20:00 BP 152 / 81; Pulse 70; Resp 14; Pulse Ox 94% on R/A; tl2 21:00 BP 132 / 83; Pulse 72; Resp 14; Pulse Ox 95% on R/A; tl2 22:24 BP 174 / 84; Pulse 66; Resp 13; Pulse Ox 94% on R/A; tl2 23:00 BP 154 / 93; Pulse 64; Resp 14; Pulse Ox 96% on R/A; tl2 05/24 00:00 BP 173 / 86; Pulse 64; Resp 14; Pulse Ox 96% on R/A; tl2 05/23 19:12 Body Mass Index 31.09 (77.11 kg, 157.48 cm) aj Mariana Coma Score: 05/23 19:12 Eye Response: spontaneous(4). Verbal Response: oriented(5). Motor Response: obeys aj commands(6). Total: 15. 20:00 Eye Response: spontaneous(4). Verbal Response: oriented(5). Motor Response: obeys tl2 commands(6). Total: 15. Trauma Score (Adult): 19:12 Eye Response: spontaneous(1); Verbal Response: oriented(1); Motor Response: obeys aj commands(2); Systolic BP: > 89 mm Hg(4); Respiratory Rate: 10 to 29 per min(4); Mariana Score: 15; Trauma Score: 12 20:00 Eye Response: spontaneous(1); Verbal Response: oriented(1); Motor Response: obeys tl2 commands(2); Systolic BP: > 89 mm Hg(4); Respiratory Rate: 10 to 29 per min(4); Mariana Score: 15; Trauma Score: 12 MDM: 19:23 Patient medically screened. [facility] 19:40 Data reviewed: vital signs, nurses notes, lab test result(s), EKG, radiologic studies, [facility] CT scan, plain films. 05/23 19:37 Order name: Basic Metabolic Panel [facility] 05/23 19:37 Order name: CBC with Diff [facility] 05/23 19:37 Order name: LFT's [facility] 05/23 19:37 Order name: Magnesium [facility] 05/23 19:37 Order name: NT PRO-BNP [facility] 05/23 19:37 Order name: PT-INR [facility] 05/23 19:37 Order name: Troponin (emerg Dept Use Only) [facility] 05/23 19:37 Order name: Blood Culture Adult (2) [facility] 05/23 19:37 Order name: Procalcitonin [facility] 05/23 19:37 Order name: Lactate [facility] 05/23 19:37 Order name: Urine Culture [facility] 05/23 19:37 Order name: Acetaminophen [facility] 05/23 19:37 Order name: ETOH Level; Complete Time: 22:33 [facility] 05/23 19:37 Order name: Ptt, Activated; Complete Time: 20:39 [facility] 05/23 19:37 Order name: Salicylate; Complete Time: 22:33 [facility] 05/23 19:37 Order name: Urine Drug Screen; Complete Time: 22:33 [facility] 05/23 19:38 Order name: Basic Metabolic Panel; Complete Time: 22:33 EDCT 05/23 19:39 Order name: CBC with Automated Diff [facility] 05/23 19:39 Order name: Liver (Hepatic) Function; Complete Time: 22:33 EDCT 05/23 19:39 Order name: Magnesium; Complete Time: 22:33 EDCT 05/23 19:39 Order name: NT PRO-BNP; Complete Time: 22:33 EDCT 05/23 19:39 Order name: Protime (+INR); Complete Time: 20:39 EDMS 05/23 19:39 Order name: Troponin (Emerg Dept Use Only); Complete Time: 22:33 [facility] 05/23 19:39 Order name: Blood Culture [facility] 05/23 19:39 Order name: Procalcitonin; Complete Time: 22:33 [facility] 05/23 19:39 Order name: Lactate; Complete Time: 22:33 [facility] 05/23 19:39 Order name: Urine Culture [facility] 05/23 19:39 Order name: Acetaminophen Level; Complete Time: 22:33 [facility] 05/23 20:39 Order name: Type And Screen; Complete Time: 22:33 [facility] 05/23 20:40 Order name: Manual Differential [facility] 05/23 19:37 Order name: XRAY Chest (1 view); Complete Time: 22:33 [facility] 05/23 19:37 Order name: EKG; Complete Time: 19:40 [facility] 05/23 19:37 Order name: Cardiac monitoring; Complete Time: 19:49 [facility] 05/23 19:37 Order name: EKG - Nurse/Tech; Complete Time: 19:46 [facility] 05/23 19:37 Order name: IV Saline Lock; Complete Time: 20:19 [facility] 05/23 19:37 Order name: Labs collected and sent; Complete Time: 20:19 [facility] 05/23 19:37 Order name: O2 Per Protocol; Complete Time: 19:49 [facility] 05/23 19:37 Order name: O2 Sat Monitoring; Complete Time: 19:49 [facility] 05/23 19:37 Order name: Urine Dipstick-Ancillary (obtain specimen); Complete Time: 21:54 [facility] 05/23 19:37 Order name: CT Traumagram (Head C Spine CAP wo con) [facility] 05/23 20:41 Order name: CBC w/o diff; Complete Time: 22:33 [facility] 05/23 21:05 Order name: Troponin I [facility] 05/23 21:55 Order name: Straight Cath; Complete Time: 21:56 05/23 22:00 Order name: Urine Dipstick--Ancillary (enter results) [facility] 05/23 22:07 Order name: Urine Dipstick-Ancillary; Complete Time: 22:33 [facility] 05/23 22:32 Order name: INCENTIVE SPIROMETRY [facility] Administered Medications: 20:22 Drug: NS 0.9% 250 ml Route: IV; Rate: bolus; Site: right upper arm; tl2 23:00 Follow up: IV Status: Completed infusion; IV Intake: 250ml tl2 20:23 Drug: NS 0.9% 1000 ml Route: IV; Rate: 125 ml/hr; Site: right upper arm; tl2 05/24 00:09 Follow up: IV Status: Infusion continued upon admission tl2 05/23 20:27 Drug: Pepcid 20 mg Route: IVP; Site: right upper arm; tl2 05/24 00:09 Follow up: Response: No adverse reaction tl2 05/23 20:28 Drug: Solu-CORTEF 100 mg Route: IVP; Site: right upper arm; tl2 05/24 00:09 Follow up: Response: No adverse reaction 2 05/23 21:23 Drug: ProTONIX 40 mg Route: IVP; Site: right upper arm; tl2 05/24 00:08 Follow up: Response: No adverse reaction 2 Disposition: 05/23/19 19:42 Hospitalization ordered by Estella Mcdonnell for Inpatient Admission. Preliminary diagnosis are Fall due to bumping against object, Weakness, Abdominal tenderness, Other chronic pain, Altered mental status, unspecified, Addisonian crisis, Anemia, unspecified, Multiple fractures of ribs, left side - 7 and 8, anterior. - Bed requested for Telemetry/MedSurg (Inpatient). - Status is Inpatient Admission. tl2 - Condition is Fair. - Problem is new. - Symptoms have improved. UTI on Admission? No Signatures: Dispatcher [employer] EDMS Elodia Stovall RN RN aj Anderson, Corey, MD MD cha Garcia, Cindy, RN RN Kaleigh Coon RN RN tl2 Corrections: (The following items were deleted from the chart) 05/23 20:41 19:42 Hospitalization Ordered by Estella Mcdonnell MD for Inpatient Admission. Preliminary christ diagnosis is Fall due to bumping against object; Weakness; Abdominal tenderness; Other chronic pain; Altered mental status, unspecified; Addisonian crisis. Bed requested for Telemetry/MedSurg (Inpatient). Status is Inpatient Admission. Condition is Fair. Problem is new. Symptoms have improved. UTI on Admission? No. christ 21:13 20:41 05/23/2019 19:42 Hospitalization Ordered by Estella Mcdonnell MD for Inpatient cg Admission. Preliminary diagnosis is Fall due to bumping against object; Weakness; Abdominal tenderness; Other chronic pain; Altered mental status, unspecified; Addisonian crisis; Anemia, unspecified. Bed requested for Telemetry/MedSurg (Inpatient). Status is Inpatient Admission. Condition is Fair. Problem is new. Symptoms have improved. UTI on Admission? No. christ 22:35 21:13 05/23/2019 19:42 Hospitalization Ordered by Estella Mcdonnell MD for Inpatient christ Admission. Preliminary diagnosis is Fall due to bumping against object; Weakness; Abdominal tenderness; Other chronic pain; Altered mental status, unspecified; Addisonian crisis; Anemia, unspecified. Bed requested for Telemetry/MedSurg (Inpatient). Status is Inpatient Admission. Condition is Fair. Problem is new. Symptoms have improved. UTI on Admission? No. cg 05/24 00:10 05/23 22:35 05/23/2019 19:42 Hospitalization Ordered by Estella Mcdonnell MD for Inpatient tl2 Admission. Preliminary diagnosis is Fall due to bumping against object; Weakness; Abdominal tenderness; Other chronic pain; Altered mental status, unspecified; Addisonian crisis; Anemia, unspecified; Multiple fractures of ribs, left side - 7 and 8, anterior. Bed requested for Telemetry/MedSurg (Inpatient). Status is Inpatient Admission. Condition is Fair. Problem is new. Symptoms have improved. UTI on Admission? No. christ
[2019-05-23] MEDS ORDERED: FAMOTIDINE 20 MG/2 ML VIAL IV ONE (20:08)
[2019-05-23] MEDS ORDERED: HYDROCORTISONE SUC 100 MG INJ ONE (20:08)
[2019-05-23] MEDS ORDERED: NA CHLORIDE 0.9% 1,000 ML ONE (20:08)
[2019-05-23 20:33] LABS: Basophils % 0.3 % (0-1.3); Eosinophils % 0.6 % (0-4.4); Hematocrit 23.3 % (36.0-45.0); Lymphocytes % 8.8 % (15.3-44.8); MPV 9.1 fL (7.6-11.3); Monocytes % 4.7 % (3.3-12.3); RBC Red Blood Cell Count 2.78 M/uL (3.86-4.86)
[2019-05-23 20:34] LABS: Protime INR 1.01
[2019-05-23 20:44] LABS: ALT/SGPT 23 U/L (12-78); AST/SGOT 18 U/L (15-37); Albumin 3.2 g/dL (3.4-5.0); Alkaline Phosphatase 102 U/L (45-117); BUN Blood Urea Nitrogen 15 mg/dL (7-18); Bicarbonate 33 mmol/L (21-32); Bilirubin Direct < 0.1 mg/dL (0-0.2); Bilirubin Total 0.2 mg/dL (0.2-1.0); Glucose Level 103 mg/dL (74-106); Magnesium 2.1 mg/dL (1.8-2.4); NT PRO-BNP 98 pg/mL (<125); Potassium 3.8 mmol/L (3.5-5.1); Protein, Total 6.9 g/dL (6.4-8.2); Sodium Level 142 mmol/L (136-145); Troponin (Emerg Dept Use Only) < 0.02 ng/mL (0.0-0.045)
--- NOTE | 2019-05-23 20:46 | RAD REPORT ---
EXAM DESCRIPTION: Dasia Single View05/23/2019 8:39 pm CLINICAL HISTORY: Chest pain COMPARISON: May 08, 2019 FINDINGS: The lungs appear clear of acute infiltrate. The heart is normal size IMPRESSION: No acute abnormalities displayed
[2019-05-23] MEDS ORDERED: ACETAMINOPHEN 500 MG TAB PO PRN (20:57)
[2019-05-23] MEDS ORDERED: ALBUTEROL 2.5 MG/3 ML NEB SOL NEB PRN (20:57)
[2019-05-23] MEDS ORDERED: ONDANSETRON 4 MG/2 ML VIAL IV PRN (20:57)
[2019-05-23] MEDS ORDERED: IPRATROPIUM BROM 0.5MG/2.5ML NEB PRN (20:57)
[2019-05-23] MEDS ORDERED: ALPRAZOLAM 0.25 MG TABLET PO PRN (20:57)
[2019-05-23 21:01] LABS: Blood Morphology Comment NOT SEEN (NOT SEEN); Platelet Estimate ADEQ
[2019-05-23] MEDS ORDERED: PANTOPRAZOLE 40 MG INJ ONE (21:07)
[2019-05-23 21:16] LABS: MPV 9.1 fL (7.6-11.3); RBC Red Blood Cell Count 3.65 M/uL (3.86-4.86)
[2019-05-23 22:05] LABS: Barbiturates NEGATIVE (NEGATIVE); Benzodiazepines NEGATIVE (NEGATIVE); Cocaine NEGATIVE (NEGATIVE); METHAMPHETAM NEGATIVE (NEGATIVE); Methadone NEGATIVE (NEGATIVE); Opiates NEGATIVE (NEGATIVE); Phencyclidine NEGATIVE (NEGATIVE); THC Cannibis NEGATIVE (NEGATIVE)
[2019-05-23 22:06] LABS: Urine Blood NEGATIVE (NEG); Urine Glucose NEGATIVE (NEG); Urine Protein NEGATIVE (NEG); Urine Specific Gravity 1.015 (1.005-1.030); Urine pH 8.5 (5.0-7.0)
[2019-05-24] MEDS: NA CHLORIDE 0.9% 1,000 ML IV SCH ×2 (00:43→10:20)
[2019-05-24] MEDS: MORPHINE 4 MG/ML SYR IV PRN ×2 (04:14→13:26)
[2019-05-24 05:23] LABS: Absolute Lymphocytes (CBC) 0.8 K/uL (0.7-4.9); Basophils % 0.1 % (0-1.3); Eosinophils % 0.1 % (0-4.4); Hematocrit 31.2 % (36.0-45.0); Lymphocytes % 9.9 % (15.3-44.8); MPV 8.7 fL (7.6-11.3); RBC Red Blood Cell Count 3.71 M/uL (3.86-4.86)
[2019-05-24 05:34] LABS: Protime INR 1.04
[2019-05-24 05:44] LABS: Albumin 3.1 g/dL (3.4-5.0); Bilirubin Total 0.2 mg/dL (0.2-1.0); Magnesium 1.9 mg/dL (1.8-2.4); Potassium 3.4 mmol/L (3.5-5.1)
[2019-05-24] MEDS ORDERED: clonazePAM 1 MG TAB PO PRN (06:03)
[2019-05-24] MEDS ORDERED: HYDROCORTISONE SUC 100 MG INJ IV ONE (07:30)
[2019-05-24] MEDS ORDERED: POTASSIUM 25 MEQ EFFERV TAB PO ONE (08:34)
[2019-05-24] MEDS ORDERED: HYDROCORTISONE 10 MG TAB PO SCH ×3 (09:00→17:00)
[2019-05-24] MEDS ORDERED: ENOXAPARIN 40 MG/0.4 ML SQ SCH (09:00)
[2019-05-24] MEDS ORDERED: FLUDROCORTISONE 0.1 MG TAB PO SCH (09:00)
[2019-05-24] MEDS ORDERED: OXYCODONE HCL 5 MG TAB PO PRN (09:00)
--- NOTE | 2019-05-24 10:58 | EKG ---
Test Date: 2019-05-23 Test Time: 19:42:51 Buckle Stringer: AG3 MEASUREMENT RESULTS: Intervals: Rate: 72 WY: 158 QRSD: 92 QT: 376 QTc: 411 [place]: P: 58 WY: 158 QRS: 12 T: 58 INTERPRETIVE STATEMENTS: Normal sinus rhythm Minimal voltage criteria for LVH, may be normal variant Borderline ECG Compared to ECG 05/08/2019 20:56:13 Early repolarization no longer present Electronically Signed On 05-24-19 10:55:05 CDT by Michael Chávez
--- NOTE | 2019-05-24 11:38 | RAD REPORT ---
EXAM DESCRIPTION: Head C Spine Cap Wo Con ADDENDUM #1 EXAM: CT Chest Without Intravenous Contrast. CT Abdomen and Pelvis Without Intravenous Contrast. CLINICAL HISTORY: 63 years old and is Female; Pain;Weakness TECHNIQUE: Axial computed tomography images of the chest, abdomen and pelvis without intravenous con trast. Sagittal and coronal reformatted images were created and reviewed. This CT exam was perfor med using one or more of the following dose reduction techniques: automated exposure control, adjus tment of the mA and/or kV according to patient size, and/or use of iterative reconstruction technique . Coronal and sagittal reformatted images were created and reviewed. COMPARISON: No relevant prior studies available. FINDINGS: Limitations: There is a history of trauma, assessment is limited in the absence of IV co ntrast. CHEST: Lungs: Mild bilateral atelectasis present. Pleural space: Trace left pleural effusion. No pneumothorax. Heart: Unremarkable. No cardiomegaly. No significant pericardial effusion. ABDOMEN: Liver: Unremarkable. Gallbladder and bile ducts: Cholecystectomy. Postoperative pneumobilia present. No ductal dilation. Pancreas: Unremarkable. No ductal dilation. Spleen: Unremarkable. No splenomegaly. Adrenals: Unremarkable. No mass. Kidneys and ureters: There is a 1.8 x 0.8 2.0 cm nonobstructing right kidney stone. Stomach and bowel: The colon is redundant particularly the transverse segment. Large amounts of stool noted in the right and proximal half of the transverse colon. No obstruction. No mucosal thickening. PELVIS: Appendix: No findings to suggest acute appendicitis. Bladder: The bladder is slightly distended. No stones. Reproductive: Hysterectomy. CHEST, ABDOMEN and PELVIS: Intraperitoneal space: Unremarkable. No significant fluid collection. No free air. Bones/joints: There are nondisplaced fractures of the anterior left seventh and eighth ribs. Soft tissues: Unremarkable. Vasculature: Mild atherosclerosis of the aorta and branches. No aneurysm. Lymph nodes: Unremarkable. No enlarged lymph nodes. IMPRESSION: 1. There are nondisplaced fractures of the anterior left seventh and eighth ribs. 2. Suboptimal assessment if there is a history of trauma. No aortic or intra-abdominal and pelvic org an abnormality is identified. 3. Nonobstructing right kidney stone. Electronically signed by: Alisa Hung MD 05/23/2019 10:03 PM CDT End of Addendum EXAM DESCRIPTION: CT Head Without Intravenous Contrast. CT Cervical Spine Without Intravenous Cont rast. CLINICAL HISTORY: 63 years old and is Female; Pain;Weakness TECHNIQUE: Axial computed tomography images of the head/brain and cervical spine without intravenous contrast. Sagittal and coronal reformatted images were created and reviewed. This CT exam was pe rformed using one or more of the following dose reduction techniques: automated exposure control, a djustment of the mA and/or kV according to patient size, and/or use of iterative reconstruction techn ique. COMPARISON: No relevant prior studies available. FINDINGS: Limitations: None. Brain: There is age related cortical atrophy and periventricular white matter hypodensity most c onsistent with chronic small ischemic change. No acute infarct, hemorrhage or mass. Ventricles: Unremarkable. No ventriculomegaly. Skull: There is very minimal facet hypertrophic change. No acute fracture. Sinuses: Trace chronic maxillary sinus thickening noted. Mastoid air cells: Unremarkable as visualized. No mastoid effusion. Vertebrae: Vertebral body heights maintained. Discs/spinal canal/neural foramina: No significant abnormality noted. No spinal canal stenosis . Soft tissues: Unremarkable. IMPRESSION: CT head and cervical spine without acute change. Electronically signed by: Alisa Hung MD 05/23/2019 9:13 PM CDT Due to temporary technical issues with the PACS/Fluency reporting system, reports are being signed by the in house radiologist as a courtesy to ensure prompt reporting. The interpreting radiologist is f ully responsible for the content of the report.
--- NOTE | 2019-05-24 11:49 | P.SSS ---
Patient History Date of Service: 05/24/19 Reason for admission: Fall History of Present Illness: 63-year-old female with significant past medical history of Barrington's disease presented to the ED complaining of having a fall x2 at home. Stated that her legs gave out and she just fell to the ground. Was admitted to the hospital for PT evaluation and observation. Allergies Penicillins Allergy (Verified 03/16/19 23:40) Shortness of breath Sulfa (Sulfonamide Antibiotics) [Sulfa(Sulfonamide Antibiotics)] Allergy ( Verified 03/16/19 23:40) Shortness of breath NSAIDS Adverse Reaction (Uncoded 03/16/19 23:40) Kidney Problems Home Medications: Amitriptyline [Elavil*] 200 mg PO BEDTIME 03/17/19 Estradiol [Estrace] 2 mg PO BEDTIME 03/17/19 Fludrocortisone [Florinef *] 0.1 mg PO DAILY 03/17/19 Hydrocortisone [Cortef*] 20 mg PO DAILY 03/17/19 Omeprazole [Prilosec] 40 mg PO DAILY 03/17/19 Promethazine HCl 25 mg PO BIDP PRN 03/17/19 Rosuvastatin [Crestor*] 10 mg PO BEDTIME 03/17/19 Zaleplon 10 mg PO BEDTIME 03/17/19 clonazePAM [Clonazepam] 1 mg PO BIDP PRN 03/17/19 Oxycodone HCl [Oxyir] 10 mg PO TID PRN 03/20/19 Duloxetine HCl [Cymbalta] 90 mg PO DAILY 05/09/19 Hydrocortisone [Cortef*] 10 mg PO DAILY 05/09/19 - Past Medical/Surgical History 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 Rheumatoid Arthritis - Social History Smoking Status: Former smoker Alcohol use: No CD- Drugs: No Caffeine use: Yes Place of Residence: Home Review of Systems 10-point ROS is otherwise unremarkable Physical Examination - Vital Signs Temperature: 97.5 F Blood Pressure: 164/78 Pulse: 71 Respirations: 17 Pulse Ox (%): 96 - Physical Exam General: Alert, In no apparent distress HEENT: Atraumatic, PERRLA, Mucous membr. moist/pink, EOMI, Sclerae nonicteric Neck: Supple, 2+ carotid pulse no bruit, No LAD, Without JVD or thyroid abnormality Respiratory: Clear to auscultation bilaterally, Normal air movement Cardiovascular: Regular rate/rhythm, Normal S1 S2 Gastrointestinal: Normal bowel sounds, No tenderness Musculoskeletal: No tenderness Integumentary: No rashes Neurological: Normal gait, Normal speech, Normal strength at 5/5 x4 extr, Normal tone, Normal affect Lymphatics: No axilla or inguinal lymphadenopathy - Studies Laboratory Data (last 24 hrs) 05/23/19 20:10: PT 11.9, INR 1.01, APTT 29.1 05/23/19 20:10: WBC 11.4 H D, Hgb 7.9 L*, Hct 23.3 L D, Plt Count 305 05/23/19 20:10: Sodium 142, Potassium 3.8, BUN 15, Creatinine 0.90, Glucose 103 , Magnesium 2.1, Total Bilirubin 0.2, AST 18, ALT 23, Alkaline Phosphatase 102 - Diagnosis (Problem(s)) (1) Fall Current Visit: Yes Status: Chronic Qualifiers: Encounter type: subsequent encounter Qualified Code(s): W19.XXXD - Unspecified fall, subsequent encounter (2) Bruce disease Onset Date: 09/08/16 Current Visit: No Status: Chronic (3) Chronic pain Onset Date: 11/01/18 Current Visit: No Status: Chronic Qualifiers: Chronic pain type: chronic pain syndrome Qualified Code(s): G89.4 - Chronic pain syndrome (4) Depression with anxiety Current Visit: No Status: Chronic (5) GERD (gastroesophageal reflux disease) Current Visit: No Status: Chronic Qualifiers: Esophagitis presence: without esophagitis Qualified Code(s): K21.9 - Gastro -esophageal reflux disease without esophagitis (6) Hyperlipidemia Onset Date: 11/01/18 Current Visit: No Status: Chronic Qualifiers: Hyperlipidemia type: mixed hyperlipidemia Qualified Code(s): E78.2 - Mixed hyperlipidemia Treatment Summary: Overall during the hospital stay patient main stable Patient was initially admitted to the hospital for fall. Patient has history of Bruce's disease and chronic pain. Patient does take a lot of pain medications at home after which she noted that she was having falls at the house. Patient was advised to not take pain medication and only take pain medication as prescribed by her PCP for pain management doctor. Patient was also asked to be compliant with her Barrington's disease overall was set up with physical therapy for her at the house. Once patient was feeling better and ambulating well with physical therapy here in the hospital patient was discharged home under stable condition. - Disposition Disposition: ROUTINE DISCHARGE Condition: FAIR Diet: Regular Activity: Ad hossein
--- NOTE | 2019-05-24 13:56 | P.HP ---
Certification for Inpatient Patient admitted to: Observation With expected LOS: <2 Midnights Patient will require the following post-hospital care: Home Health Services Practitioner: I am a practitioner with admitting privileges, knowledge of patient current condition, hospital course, and medical plan of care. Services: Services provided to patient in accordance with Admission requirements found in Title 42 Section 412.3 of the Code of Federal Regulations Patient History Date of Service: 05/23/19 Reason for admission: Fall History of Present Illness: Patient is female who came to the hospital after multiple falls. She fell on 2 different occasions and then when her sister was trying to lift her back up she fell again. Patient has been gradually feeling weaker over the last few months. He has a history of Platte's disease but she has been on the same dose of hydrocortisone as well as fludrocortisone. Otherwise, she has not gone to see a physician. She does have some muscle weakness with some myopathy. Will give her increased dose of hydrocortisone at this time will see how she responds. Patient is a high fall risk at this time and she will at least need home health with physical therapy and nursing care going forward. She will need at least 24-48 hours of hospitalization to see if we can get her strength built up so she will be safe to go home. Patient also has some confusion according to the sister. This has improved. Patient has some abdominal pain and back pain as well after falling. We will see how she does with physical therapy and proceed from there. Allergies Penicillins Allergy (Verified 03/16/19 23:40) Shortness of breath Sulfa (Sulfonamide Antibiotics) [Sulfa(Sulfonamide Antibiotics)] Allergy ( Verified 03/16/19 23:40) Shortness of breath NSAIDS Adverse Reaction (Uncoded 03/16/19 23:40) Kidney Problems Home Medications: Amitriptyline [Elavil*] 200 mg PO BEDTIME 03/17/19 Estradiol [Estrace] 2 mg PO BEDTIME 03/17/19 Fludrocortisone [Florinef *] 0.1 mg PO DAILY 03/17/19 Hydrocortisone [Cortef*] 20 mg PO DAILY 03/17/19 Omeprazole [Prilosec] 40 mg PO DAILY 03/17/19 Promethazine HCl 25 mg PO BIDP PRN 03/17/19 Rosuvastatin [Crestor*] 10 mg PO BEDTIME 03/17/19 Zaleplon 10 mg PO BEDTIME 03/17/19 clonazePAM [Clonazepam] 1 mg PO BIDP PRN 03/17/19 Oxycodone HCl [Oxyir] 10 mg PO TID PRN 03/20/19 Duloxetine HCl [Cymbalta] 90 mg PO DAILY 05/09/19 Hydrocortisone [Cortef*] 10 mg PO DAILY 05/09/19 - Past Medical/Surgical History Diabetic: No -: Bruce's -: Irritable Bowel Syndrome -: TIA -: Chronic back pain -: Cholecystectomy -: Appy -: -: Hysterectomy -: Explore Lap - Family History Mother Medical History: Cancer, Other (see notes) Notes: Asthma. Rheumatoid Arthritis - Social History Smoking Status: Former smoker Alcohol use: No CD- Drugs: No Caffeine use: Yes Place of Residence: Home Review of Systems 10-point ROS is otherwise unremarkable Physical Examination - Vital Signs Temperature: 96.6 F Blood Pressure: 165/70 Pulse: 77 Respirations: 17 Pulse Ox (%): 97 - Physical Exam General: Alert, In no apparent distress, Oriented x3 HEENT: Atraumatic, PERRLA, Mucous membr. moist/pink, EOMI, Sclerae nonicteric Neck: Supple, 2+ carotid pulse no bruit, No LAD, Without JVD or thyroid abnormality Respiratory: Clear to auscultation bilaterally, Normal air movement Cardiovascular: Regular rate/rhythm, Normal S1 S2, No murmurs Gastrointestinal: Normal bowel sounds, Soft and benign, Non-distended, No tenderness Musculoskeletal: No clubbing, No swelling, No tenderness Integumentary: No rashes Neurological: Normal gait, Normal speech, Normal strength at 5/5 x4 extr, Normal tone, Sensation intact, Cranial nerves 3-12 intact, Normal affect Lymphatics: No axilla or inguinal lymphadenopathy - Studies Laboratory Data (last 24 hrs) 05/23/19 20:10: PT 11.9, INR 1.01, APTT 29.1 05/23/19 20:10: WBC 11.4 H D, Hgb 7.9 L*, Hct 23.3 L D, Plt Count 305 05/23/19 20:10: Sodium 142, Potassium 3.8, BUN 15, Creatinine 0.90, Glucose 103 , Magnesium 2.1, Total Bilirubin 0.2, AST 18, ALT 23, Alkaline Phosphatase 102 Assessment & Plan - Problems (Diagnosis) (1) Fall Current Visit: Yes Status: Chronic Qualifiers: Encounter type: subsequent encounter Qualified Code(s): W19.XXXD - Unspecified fall, subsequent encounter (2) Near syncope Current Visit: Yes Status: Acute (3) Abdominal pain Current Visit: Yes Status: Acute (4) Altered mental status Current Visit: Yes Status: Acute (5) Generalized weakness Current Visit: Yes Status: Acute (6) Myopathy Current Visit: Yes Status: Acute (7) Addisonian crisis Current Visit: No Status: Resolved - Plan Plan: 1. Physical therapy evaluation 2. Out of bed and ambulate 3. Diet as tolerated 4. Monitor labs and electrolytes 5. May need other lab testing including CPK and aldolase level and his strength continues to worsen will need further workup 6. GI and DVT prophylaxis Discharge Plan: Home Plan to discharge in: 48 Hours - Advance Directives Does patient have a Living Will: Yes Does patient have a Durable POA for Healthcare: No - Code Status/Comfort Care Code Status Assessed: Yes Code Status: Full Code Critical Care: No Time Spent Managing PTS Care (In Minutes): 45
[2019-05-24] MEDS ORDERED: ZOLPIDEM TARTRATE 5 MG TABLET PO PRN (14:25)
[2019-05-24] MEDS ORDERED: ESTRADIOL 2 MG PO SCH (21:00)
[2019-05-24] MEDS ORDERED: AMITRIPTYLINE 50 MG TAB PO SCH (21:00)
[2019-05-24] MEDS ORDERED: HOME MED 1 EA UNK (Zaleplon [Zaleplon] 10 MG) PO SCH (21:00)
[2019-05-25 18:09] VITALS: BP 165/70; TEMP 96.6; O2SAT 96; BMI 31.1
== END 2019-05-24 15:25 | disposition home health service (06) ==
LOC: ER 19:09 → INTOOBSV 20:57 → ERHOLD 20:57 → 4TH 23:26
PROVIDERS: ADMIT Hospitalist; ATTEND Hospitalist
DX: R55 Syncope and collapse (principal); R10.9 Unspecified abdominal pain; R41.82 Altered mental status, unspecified; E27.1 Primary adrenocortical insufficiency; R53.1 Weakness; F41.8 Other specified anxiety disorders; E78.2 Mixed hyperlipidemia; G72.9 Myopathy, unspecified; G89.29 Other chronic pain; K21.9 Gastro-esophageal reflux disease without esophagitis; Z88.0 Allergy status to penicillin; Z88.2 Allergy status to sulfonamides; Z86.73 Personal history of transient ischemic attack (TIA), and cerebral infarction without residual deficits; Z87.891 Personal history of nicotine dependence; Z91.81 History of falling
CPT/HCPCS: 96365; 96361; 93005; 87040 ×2; 87088; 85025 ×2; 80048; 36415; 80320; 86900; 83735 ×2; 86850; 80329 ×2; 84100; 85610 ×2; 80061; 86901; 80076; 80307 ×8; 83605 ×2; 85730 ×2; 81003; 85027; 84484 ×3; 80053; 84145; 83880 ×2; 70450; 71250; 72125; 71045; 97161; 51702; 96375; 99285; 96366; C9113; J1650; J7030 ×2; J1720; J2405; G0378 ×2; 87086

== ENCOUNTER 2019-06-24 18:16 | Emergency (ER) | payer OTHER ==
--- OUTSIDE RECORDS SUMMARY | 2019-06-24 18:18 | XMS REPORT ---
:1955 [facility] Address [address] [place] [id number] Care Team Providers Name Role Phone Unavailable Unavailable Unavailable Problems This patient has no known problems. Allergies, Adverse Reactions, Alerts This patient has no known allergies or adverse reactions. Medications This patient has no known medications.
[2019-06-24 19:41] LABS: Urine Blood NEGATIVE (NEG); Urine Glucose NEGATIVE (NEG); Urine Protein NEGATIVE (NEG); Urine Specific Gravity 1.015 (1.005-1.030)
[2019-06-24 19:52] LABS: Absolute Lymphocytes (CBC) 0.6 K/uL (0.7-4.9); Basophils % 0.6 % (0-1.3); Hematocrit 29.8 % (36.0-45.0); Lymphocytes % 5.1 % (15.3-44.8); MPV 9.2 fL (7.6-11.3)
[2019-06-24 20:00] LABS: Urine Bacteria NONE SEEN /HPF (<20); Urine Culture Reflex Order NOT NEEDED; Urine RBC NONE SEEN /HPF (NONE SEEN)
--- NOTE | 2019-06-24 20:10 | RAD REPORT ---
EXAM DESCRIPTION: CT - [id number] - 06/24/2019 7:46 pm CLINICAL HISTORY: Fall, head and neck injury COMPARISON: None. TECHNIQUE: Axial 5 mm thick images of the head were obtained. Axial 2 mm thick images of the cervic al spine were obtained with sagittal and coronal reconstruction images generated and reviewed. All CT scans are performed using dose optimization technique as appropriate and may include automated exposure control or mA/KV adjustment according to patient size. FINDINGS: No intracranial hemorrhage, mass, edema or acute intracranial finding. No acute cortical based infarc tion. No cortical edema or sulcal effacement. Atrophy changes are minimal. Moderate chronic ischemic change present. No extra-axial fluid collections. Mastoid air cells and paranasal sinuses are clear. No globe or orbit abnormality seen. Cervical body height and alignment are normal. No disk space narrowing. No fracture or acute bony abn ormality. Central canal detail is inherently limited. No paraspinal mass or hematoma. IMPRESSION: No hemorrhage, edema or acute intracranial finding. Patient has minimal atrophy change w ith moderate chronic ischemic change. Negative CT cervical spine examination for acute or significant finding.
[2019-06-24 20:12] LABS: ALT/SGPT 12 U/L (12-78); AST/SGOT 9 U/L (15-37); Albumin 3.6 g/dL (3.4-5.0); Alkaline Phosphatase 91 U/L (45-117); BUN Blood Urea Nitrogen 16 mg/dL (7-18); Bicarbonate 30 mmol/L (21-32); Bilirubin Direct < 0.1 mg/dL (0-0.2); Bilirubin Total 0.3 mg/dL (0.2-1.0); Glucose Level 143 mg/dL (74-106); Magnesium 2.2 mg/dL (1.8-2.4); NT PRO-BNP 118 pg/mL (<125); Potassium 3.6 mmol/L (3.5-5.1); Protein, Total 7.4 g/dL (6.4-8.2); Sodium Level 141 mmol/L (136-145); Troponin (Emerg Dept Use Only) < 0.02 ng/mL (0.0-0.045)
[2019-06-24] MEDS ORDERED: HYDROCORTISONE SUC 100 MG INJ ONE (20:39)
[2019-06-24 20:59] LABS: Protime INR 0.99
[2019-06-24] MEDS ORDERED: KETOROLAC 30 MG/ML INJ ONE (21:08)
[2019-06-24 21:22] LABS: Platelet Estimate ADEQ; Urine White Blood Cell Casts OK
[2019-06-24 21:23] LABS: Anisocytosis 1+; Blood Morphology Comment NOTED (NOT SEEN)
--- NOTE | 2019-06-24 22:58 | EDPHYS ---
Physician Documentation [facility] Name: Dulce Cerna Age: 63 yrs Sex: Female : 1955 Arrival Date: 06/24/2019 Time: 18:23 Bed 6 Private MD: Fletcher Bright HPI: 06/24 19:25 This 63 yrs old Female presents to ER via Wheelchair with complaints of Fall cp Injury, Weakness, Confusion. 19:25 Details of fall: The patient fell from an upright position, while walking. Onset: The cp symptoms/episode began/occurred today. 19:25 Associated injuries: The patient sustained injury to the low back, pain. cp 19:25 Patient reports 2 episodes of losing her balance today while walking. Patient reports cp falling to ground each time but denies LOC. Patient c/o general weakness and being confused earlier today. Historical: - Allergies: 18:32 Sulfa (Sulfonamide Antibiotics); bp 18:32 PENICILLINS; bp 18:32 "pain pills"; bp - Home Meds: 18:32 amitriptyline 100 mg Oral tab 1 tab "1 or 2 tablets at bedtime" [Active]; clonazepam 1 bp mg Oral tab 1 tab BID PRN [Active]; duloxetine DR 60 mg PO in the AM [Active]; estradiol 2 mg Oral tab 1 tab once daily [Active]; fludrocort 0.1 mg 1 tab DAILY [Active]; omeprazole 40 mg Oral cpDR 1 cap once daily [Active]; oxycodone 10 mg Oral tab 1 tab three times a day [Active]; zaleplon 5 mg Oral tab 1 cap "1 or 2 tablets at bedtime." [Active]; tizanidine 2 mg Oral tab twice a day [Active]; rosuvastatin 10 mg Oral tab 1 tab once daily [Active]; promethazine 25 mg Oral tab 1 tab BID PRN [Active]; - PMHx: 18:32 addisons; Chronic pain; Irritable bowel syndrome; TIA; bp - Immunization history:: Adult Immunizations up to date. - Social history:: Smoking status: Patient/guardian denies using tobacco. - Ebola Screening: : No symptoms or risks identified at this time. ROS: 19:30 Constitutional: Negative for body aches, chills, fever, poor PO intake. cp 19:30 Eyes: Negative for injury, pain, redness, and discharge. cp 19:30 ENT: Negative for drainage from ear(s), ear pain, sore throat, difficulty swallowing, difficulty handling secretions. 19:30 Cardiovascular: Negative for chest pain, edema, palpitations. 19:30 Respiratory: Negative for cough, shortness of breath, wheezing. 19:30 Abdomen/GI: Positive for abdominal pain, Negative for vomiting, diarrhea, constipation, black/tarry stool, rectal bleeding. 19:30 Back: Positive for pain at rest, pain with movement, of the low back. 19:30 : Negative for urinary symptoms. 19:30 Skin: Negative for cellulitis, rash. 19:30 Neuro: Positive for altered mental status, weakness, Negative for dizziness, headache, loss of consciousness, syncope. 19:30 All other systems are negative. Exam: 19:40 Constitutional: The patient appears in no acute distress, alert, awake, cp non-diaphoretic, non-toxic, well developed, well nourished. 19:40 Head/Face: Normocephalic, atraumatic. cp 19:40 Eyes: Periorbital structures: appear normal, Pupils: equal, round, and reactive to cp light and accomodation, Extraocular movements: intact throughout, Conjunctiva: normal, no exudate, no injection, Lids and lashes: appear normal, bilaterally. 19:40 ENT: External ear(s): are unremarkable, Ear canal(s): are normal, clear, TM's: dullness, bilaterally, Nose: is normal, Mouth: Lips: moist, Oral mucosa: pink and intact, moist, Posterior pharynx: is normal, airway is patent, no erythema, no exudate. 19:40 Neck: C-spine: vertebral tenderness, that is mild, crepitus, is not appreciated, cp ROM/movement: limited range of motion, is not appreciated, nuchal rigidity, is not appreciated. 19:40 Chest/axilla: Inspection: normal, Palpation: is normal, no crepitus, no tenderness. 19:40 Cardiovascular: Rate: normal, Rhythm: regular. 19:40 Respiratory: the patient does not display signs of respiratory distress, Respirations: normal, no use of accessory muscles, labored breathing, is not present, Breath sounds: are clear throughout, no decreased breath sounds, no stridor, no wheezing. 19:40 Abdomen/GI: Inspection: abdomen appears normal, Bowel sounds: active, all quadrants, Palpation: soft, in all quadrants, mild abdominal tenderness, in the right lower quadrant and left lower quadrant. 19:40 Back: pain, that is mild, of the lumbar area, ROM is painful. 19:40 Musculoskeletal/extremity: Exam is negative for decreased range of motion, deformity, injury. 19:40 Neuro: Orientation: to person, place, situation, Not oriented to time, Mentation: slow to respond, Cerebellar function: Romberg testing is negative, normal finger to nose testing, heel to castillo testing is normal, Motor: moves all fours, strength is normal, Sensation: no obvious gross deficits. 20:05 ECG was reviewed by the Attending Physician. cp Vital Signs: 18:30 BP 159 / 79; Pulse 72; Resp 16 S; Temp 98.3(O); Pulse Ox 98% on R/A; Pain 9/10; aa5 20:56 BP 163 / 79; Pulse 77; Resp 15; Pulse Ox 96% on R/A; aj 22:16 BP 164 / 63; Pulse 63; Resp 13; Pulse Ox 97% on R/A; aj 23:19 BP 168 / 80; Pulse 66; Resp 14 S; Pulse Ox 96% on R/A; Pain 0/10; jd3 MDM: 19:12 Patient medically screened. cp 22:00 Data reviewed: vital signs, nurses notes, lab test result(s), EKG, radiologic studies, cp CT scan, plain films. 22:00 Test interpretation: by ED physician or midlevel provider: ECG. cp 23:35 ED course: VSS. Patient evaluated by DR Mcdonnell after request for admission. Dr Mcdonnell cp recommends discharge to home after patient declined admission for transfer to rehab or log-term care facility. Patient felt to be at baseline. Recommend increasing steroids to double for next 5 days. 06/24 19:13 Order name: Urine Dipstick--Ancillary (enter results); Complete Time: 19:44 cm6 06/24 19:29 Order name: Basic Metabolic Panel cp 06/24 19:29 Order name: CBC with Diff cp 06/24 19:29 Order name: LFT's; Complete Time: 20:13 cp 06/24 21:16 Interpretation: Normal except: AST 9; GLOB 3.8; A/G 0.9. / 19:29 Order name: Magnesium; Complete Time: 20:59 cp / 19:29 Order name: NT PRO-BNP; Complete Time: 20:13 cp 08/ 19:29 Order name: PT-INR; Complete Time: 21:15 / 19:29 Order name: Troponin (emerg Dept Use Only); Complete Time: 20:13 06/24 19:29 Order name: Urine Microscopic Only; Complete Time: 20:13 cp / 19:29 Order name: Lactate; Complete Time: 21:15 cp / 19:29 Order name: Procalcitonin; Complete Time: 20:59 / 19:29 Order name: Blood Culture Adult (2) / 19:30 Order name: Basic Metabolic Panel; Complete Time: 20:13 EDFL 08 21:16 Interpretation: Normal except: GLUC 143; GFR 74. 06/24 19:30 Order name: CBC with Automated Diff; Complete Time: 21:28 EDFL 08/ 20:14 Interpretation: Normal except: WBC 10.9; RBC 3.60; HGB 10.1; HCT 29.8; RDW 17.0; STIVEN% cp 91.8; LYM% 5.1; MN% 2.4; NEUT A 10.0; LYMA 0.6. 06/24 19:29 Order name: EKG; Complete Time: 19:30 06/24 19:29 Order name: Cardiac monitoring; Complete Time: 20:21 06/24 19:29 Order name: EKG - Nurse/Tech; Complete Time: 21:34 / 19:29 Order name: IV Saline Lock; Complete Time: 20:21 06/24 19:29 Order name: Labs collected and sent; Complete Time: 20:21 06/24 19:29 Order name: O2 Per Protocol; Complete Time: 20:22 cp / 19:29 Order name: O2 Sat Monitoring; Complete Time: 20:22 cp 06/24 19:29 Order name: Urine Dipstick-Ancillary (obtain specimen); Complete Time: 19:48 06/24 19:29 Order name: CT Head C Spine; Complete Time: 20:13 cp 08/02 19:55 Order name: CBC Smear Scan; Complete Time: 21:28 EDFL 06/24 21:31 Order name: CT Chest, Abdomen, Pelvis - W/Contrast: fall cp EC:05 Rate is 70 beats/min. Rhythm is regular. NV interval is normal. QRS interval is normal. cp QT interval is normal. T waves are Flattened in lead aVL. Interpreted by me. Reviewed by me. Administered Medications: 20:50 Drug: Solu-CORTEF 100 mg Route: IVP; Site: right antecubital; aj 22:00 Follow up: Response: No adverse reaction jd3 21:16 Drug: TORadol - Ketorolac 15 mg Route: IVP; Site: right antecubital; aj 22:00 Follow up: Response: No adverse reaction jd3 Disposition: 06/24/19 23:39 Discharged to Home. Impression: Fall on same level from slipping, tripping and stumbling, Weakness - general. - Condition is Stable. - Discharge Instructions: Fall Prevention in the Home, Weakness. - Medication Reconciliation Form, Thank You Letter, Antibiotic Education, Prescription Opioid Use form. - Follow up: Private Physician; When: 2 - 3 days; Reason: Recheck today's complaints. - Problem is an ongoing problem. - Symptoms have improved. - Notes: Increase oral steroids to twice prescribed dosage for next 5 days and resume regular prescribed dosage Addendum: 06/27/2019 09:19 Co-signature as Attending Physician, Fletcher Pruitt MD I agree with the assessment and c garibay plan of care. Signatures: Dispatcher [employer] [facility] Elodia Stovall RN RN aj Anderson, Corey, MD MD cha Page, Corey, PA PA Waqas Sutton RN RN jMoustapha Ludwig RN RN bp Roque, Raymond RN RN rr5 Corrections: (The following items were deleted from the chart) 06/24 19:48 19:29 Gonzales ordered. [facility] 23:10 22:56 Hospitalization Ordered by Estella Mcdonnell MD for Observation. Preliminary rr5 diagnosis is Fall on same level from slipping, tripping and stumbling; Altered mental status, unspecified; Weakness; Addisonian crisis. Bed requested for Telemetry/MedSurg (observation). Status is Observation. Condition is Stable. Problem is an acute exacerbation. Symptoms have improved. UTI on Admission? No. cp 23:37 23:10 06/24/2019 22:56 Hospitalization Ordered by Estella Mcdonnell MD for Observation. cp Preliminary diagnosis is Fall on same level from slipping, tripping and stumbling; Altered mental status, unspecified; Weakness; Addisonian crisis. Bed requested for Telemetry/MedSurg (observation). Status is Observation. Condition is Stable. Problem is an acute exacerbation. Symptoms have improved. UTI on Admission? No. rr5 06/25 00:07 06/24 23:39 06/24/2019 23:39 Discharged to Home. Impression: Fall on same level from jd3 slipping, tripping and stumbling; Weakness - general. Condition is Stable. Forms are Medication Reconciliation Form, Thank You Letter, Antibiotic Education, Prescription Opioid Use. Follow up: Private Physician; When: 2 - 3 days; Reason: Recheck today's complaints. Problem is an ongoing problem. Symptoms have improved. cp
--- NOTE | 2019-06-24 22:58 | ER ---
Nurse's Notes [facility] Name: Dulce Cerna Age: 63 yrs Sex: Female : 1955 Arrival Date: 06/24/2019 Time: 18:23 Bed 6 Private MD: Diagnosis: Fall on same level from slipping, tripping and stumbling;Weakness-general Presentation: 06/24 18:30 Presenting complaint: Patient states: "I fell twice today and one of the times I hit my aa5 head on the coffee table". Denies LOC. Pt also states "I think I am sick with addisons again because I was talking nonsense to my sister and I do that whenever I am sick". Pt also c/o nausea and lower abd pain, pt states "I know my stomach hurts because I am constipated". 18:30 Transition of care: patient was not received from another setting of care. Onset of aa5 symptoms was June 24, 2019. Risk Assessment: Do you want to hurt yourself or someone else? Patient reports no desire to harm self or others. Initial Sepsis Screen: Does the patient meet any 2 criteria? No. Patient's initial sepsis screen is negative. Does the patient have a suspected source of infection? No. Patient's initial sepsis screen is negative. Care prior to arrival: None. 18:30 Acuity: TRACY 3 aa5 18:30 Method Of Arrival: Wheelchair aa5 Triage Assessment: 18:32 General: Appears in no apparent distress. comfortable, obese, Behavior is cooperative, bp appropriate for age, anxious. Pain: Denies pain. EENT: No deficits noted. Neuro: Level of Consciousness is awake, alert, obeys commands, Oriented to person, place, time, situation, Appropriate for age. Cardiovascular: No deficits noted. Respiratory: No deficits noted. GI: Reports constipation. : No signs and/or symptoms were reported regarding the genitourinary system. Derm: No deficits noted. Musculoskeletal: No deficits noted. Historical: - Allergies: 18:32 Sulfa (Sulfonamide Antibiotics); bp 18:32 PENICILLINS; bp 18:32 "pain pills"; bp - Home Meds: 18:32 amitriptyline 100 mg Oral tab 1 tab "1 or 2 tablets at bedtime" [Active]; clonazepam 1 bp mg Oral tab 1 tab BID PRN [Active]; duloxetine DR 60 mg PO in the AM [Active]; estradiol 2 mg Oral tab 1 tab once daily [Active]; fludrocort 0.1 mg 1 tab DAILY [Active]; omeprazole 40 mg Oral cpDR 1 cap once daily [Active]; oxycodone 10 mg Oral tab 1 tab three times a day [Active]; zaleplon 5 mg Oral tab 1 cap "1 or 2 tablets at bedtime." [Active]; tizanidine 2 mg Oral tab twice a day [Active]; rosuvastatin 10 mg Oral tab 1 tab once daily [Active]; promethazine 25 mg Oral tab 1 tab BID PRN [Active]; - PMHx: 18:32 addisons; Chronic pain; Irritable bowel syndrome; TIA; bp - Immunization history:: Adult Immunizations up to date. - Social history:: Smoking status: Patient/guardian denies using tobacco. - Ebola Screening: : No symptoms or risks identified at this time. Screenin:34 Abuse screen: Denies threats or abuse. Denies injuries from another. Nutritional bp screening: No deficits noted. Tuberculosis screening: No symptoms or risk factors identified. Fall Risk Fall in past 12 months (25 points). Secondary diagnosis (15 points) TIA, No IV (0 pts). Ambulatory Aid- None/Bed Rest/Nurse Assist (0 pts). Gait- Normal/Bed Rest/Wheelchair (0 pts) Mental Status- Oriented to own ability (0 pts). Total Vásquez Fall Scale indicates Low Risk Score (25-44 pts). Fall prevention measures have been instituted. Side Rails Up X 2 Placed close to Nursing Station Frequent Obs/Assesments occuring As available Patient and Family Educated on Fall Prevention Program and strategies. Assessment: 18:34 General: SEE TRIAGE NOTE. bp 19:01 General: Appears in no apparent distress. comfortable, Behavior is calm, cooperative, aj appropriate for age. Pain: Complains of pain in right lower quadrant and left lower quadrant. Neuro: Level of Consciousness is awake, alert, obeys commands, Oriented to person, place, time, situation, Appropriate for age. Respiratory: Airway is patent Respiratory effort is even, unlabored, Respiratory pattern is regular, symmetrical. GI: Reports lower abdominal pain. Derm: Skin is intact, is healthy with good turgor, Skin is pink, warm \\T\\ dry. normal. Musculoskeletal: Reports weakness in general. 22:20 General: Appears in no apparent distress. comfortable, Behavior is calm, cooperative, jd3 appropriate for age. Pain: Denies pain. Neuro: Level of Consciousness is awake, alert, obeys commands, Oriented to person, place, time, situation. Cardiovascular: Capillary refill < 3 seconds Patient's skin is warm and dry. Respiratory: Airway is patent Respiratory effort is even, unlabored, Respiratory pattern is regular, symmetrical. GI: Abdomen is round Abd is soft and non tender X 4 quads. : No signs and/or symptoms were reported regarding the genitourinary system. EENT: No signs and/or symptoms were reported regarding the EENT system. Derm: Skin is intact, Skin is dry, Skin is normal, Skin temperature is warm. Musculoskeletal: Reports continued general weakness. 23:19 Reassessment: Patient appears in no apparent distress at this time. No changes from jd3 previously documented assessment. Patient and/or family updated on plan of care and expected duration. Pain level reassessed. Patient is alert, oriented x 3, equal unlabored respirations, skin warm/dry/pink. 06/25 00:06 Reassessment: Patient appears in no apparent distress at this time. Patient and/or jd3 family updated on plan of care and expected duration. Pain level reassessed. Patient is alert, oriented x 3, equal unlabored respirations, skin warm/dry/pink. pt reported understanding of discharge instructions. Vital Signs: 06/24 18:30 BP 159 / 79; Pulse 72; Resp 16 S; Temp 98.3(O); Pulse Ox 98% on R/A; Pain 9/10; aa5 20:56 BP 163 / 79; Pulse 77; Resp 15; Pulse Ox 96% on R/A; aj 22:16 BP 164 / 63; Pulse 63; Resp 13; Pulse Ox 97% on R/A; aj 23:19 BP 168 / 80; Pulse 66; Resp 14 S; Pulse Ox 96% on R/A; Pain 0/10; jd3 ED Course: 18:23 Patient arrived in ED. rg4 18:29 Moustapha Gomez, RN is Primary Nurse. bp 18:30 Arm band placed on Patient placed in an exam room, on a stretcher. aa5 18:34 Patient has correct armband on for positive identification. Placed in gown. Bed in low bp position. Call light in reach. Side rails up X2. 18:36 Triage completed. aa5 18:49 Primary Nurse role handed off by Moustapha Gomez RN aj 18:49 Elodia Stovall, RN is Primary Nurse. aj 19:11 Fletcher Lerma PA is PHCP. cp 19:11 Jesus Butt MD is Attending Physician. cp 19:22 Fletcher Pruitt MD is Attending Physician. cp 19:45 Missed attempt(s): 24 gauge in right antecubital area. Bleeding controlled, band aid aj applied, catheter tip intact. 19:46 CT Head C Spine In Process Unspecified. EDMS 20:40 Inserted 18 gauge 10 cm midline to right upper brachial vein on first attempt. Line fc with good blood return and flushes well. 22:[address] via stretcher. nj 22:06 CT completed. Patient tolerated procedure well. Patient moved back from CT. nj 22:21 CT Chest, Abdomen, Pelvis - W/Contrast: fall In Process Unspecified. EDMS 22:55 Estella Mcdonnell MD is Hospitalizing Provider. cp 23:24 No provider procedures requiring assistance completed. IV discontinued, intact, jd3 bleeding controlled, No redness/swelling at site. Pressure dressing applied. Administered Medications: 20:50 Drug: Solu-CORTEF 100 mg Route: IVP; Site: right antecubital; aj 22:00 Follow up: Response: No adverse reaction jd3 21:16 Drug: TORadol - Ketorolac 15 mg Route: IVP; Site: right antecubital; aj 22:00 Follow up: Response: No adverse reaction jd3 Outcome: 22:56 Decision to Hospitalize by Provider. cp 23:35 Condition: stable jd3 23:39 Discharge ordered by . cp 06/25 00:06 Discharged to home via wheelchair, with family. jd3 Discharge instructions given to patient, family, Instructed on discharge instructions, follow up and referral plans. Demonstrated understanding of instructions, follow-up care. 00:07 Patient left the ED. jd3 Signatures: Dispatcher [employer] [facility] Elodia Stovall, Angy Frank RN, RN RN Cherise Trevino RN RN aa Fletcher Lerma PA PA cp Garcia, Rubi rg4 Efren Davis Jonathon, RN RN Moustapha Haddad RN RN bp Corrections: (The following items were deleted from the chart) 00:06/24 23:24 Patient admitted, IV remains in place. francisco singh 06/25 00:06/24 23:35 Admitted to Med/surg accompanied by tech, via stretcher, room 401, with francisco chart, Report called to Tavia singh 06/25 00:06/24 23:35 Instructed on the need for admit, Demonstrated understanding of jlisseth instructions, francisco
[2019-06-25 01:42] VITALS: TEMP 98.3
[2019-06-25 01:46] VITALS: BP 168/80; O2SAT 96
--- NOTE | 2019-06-25 06:47 | EKG ---
Test Date: 2019-06-24 Test Time: 19:54:37 Learning Developer: RIKY MEASUREMENT RESULTS: Intervals: Rate: 70 CT: 158 QRSD: 88 QT: 420 QTc: 453 [place]: P: 62 CT: 158 QRS: 12 T: 42 INTERPRETIVE STATEMENTS: Normal sinus rhythm Minimal voltage criteria for LVH, may be normal variant Nonspecific ST and T wave abnormality Abnormal ECG Compared to ECG 05/23/2019 19:42:51 ST (T wave) deviation now present Electronically Signed On 06-25-19 06:46:03 CDT by Michael Chávez
--- NOTE | 2019-06-27 14:15 | RAD REPORT ---
EXAM DESCRIPTION: CT - Chest Abdomen Pelvis W Cont - 06/25/2019 3:39 am CLINICAL HISTORY: Fall with pain. TECHNIQUE: CT scan of the chest, abdomen and pelvis was performed with intravenous contrast. 5 mm arterial phase axial images of the thorax and abdomen were obtained along with coronal and sagit kayy reformatted images. 5 mm venous phase axial images of the abdomen and pelvis were obtained along with coronal and sagitta l reformatted images. DOSE OPTIMIZATION: This facility uses dose optimization techniques as appropriate to perform exams, including at least one of the following techniques: 1. Automated exposure control. 2. Adjustment of the mA and/or kV according to patient size (this includes techniques or standardized protocols for targeted exams where dose is matched to the indication/reason for exam, i.e. extremiti es or head). 3. Use of iterative reconstructive technique. INTRAVENOUS CONTRAST: Not documented. Please refer to medical record. COMPARISON: None. FINDINGS: Lung Hoffman: Normal. Mediastinal Structures: No acute abnormalities. There is very mild atherosclerosis about the aortic arch. Pleural Space: Normal. Axillae: Normal. Chest Wall: Normal. Liver: There is a moderate amount of intrahepatic and extra hepatic biliary ductal gas likely seconda ry to sphincter of Oddi manipulation. Spleen: Normal. Pancreas: Normal. Gallbladder: Surgically absent. Adrenal Glands: Normal. Kidneys: There is a large staghorn calculus in the upper pole of the right kidney which is nonobstructing. This measures 0.9 x 2.0 cm. There are small bilateral cortical renal cysts. The largest cyst is in the lower pole the right kidney measuring 0.6 x 0.6 cm. Retroperitoneal Structures: There is moderately severe atherosclerotic disease about the abdominal ao rta. Bowel Survey: There is a large amount of residual stool identified within the ascending and the transverse colon. The transverse colon. Redundant extending into the pelvis to just superior to the urinary bladder. These portions of the colon are distended measuring 6 cm in AP diameter. Fecal impaction should be considered. The distal ileum is unremarkable. Of The appendix is not identified. Uterus and Adnexa: Absent Urinary Bladder: Normal. Peritoneal Cavity: Normal. Mesenteric Structures: Normal. Abdominal Wall: There is a small umbilical hernia containing fat. Bony Structures: No suspicious lesions. There are old fractures identified involving the left fifth through eighth ribs anteriorly. IMPRESSION: 1. Large amount residual stool within the ascending and transverse colon suspicious for fecal impaction. 2. The transverse colon is redundant extending into the pelvis. 3. There is a large staghorn calculus in the upper pole right kidney which is nonobstructing. Electronically signed by: Carlos Marmolejo MD 06/24/2019 10:59 PM CDT Due to temporary technical issues with the PACS/Fluency reporting system, reports are being signed by the in house radiologist as a courtesy to ensure prompt reporting. The interpreting radiologist is f ully responsible for the content of the report.
== END 2019-06-25 00:07 | disposition home or self-care (01) ==
LOC: ER 18:16
DX: R53.1 Weakness (principal); W01.0XXA Fall on same level from slipping, tripping and stumbling without subsequent striking against object, initial encounter; Y93.01 Activity, walking, marching and hiking; Y92.9 Unspecified place or not applicable; Z88.0 Allergy status to penicillin; Z88.2 Allergy status to sulfonamides; Z88.6 Allergy status to analgesic agent; Z86.73 Personal history of transient ischemic attack (TIA), and cerebral infarction without residual deficits
CPT/HCPCS: 93005; 87040 ×2; 85025; 80048; 36415; 83735; 87205; 85610; 80076; 83605; 84484; 84145; 83880; 70450; 72125; 71260; 74177; 96375; 96374; 99284; Q9967; J1720; 81003; 81015

== ENCOUNTER 2019-08-02 12:00 | Emergency (ER) | payer OTHER ==
--- OUTSIDE RECORDS SUMMARY | 2019-08-02 12:03 | XMS REPORT ---
:1955 [facility] Address [address] Sidhu [address] [place] [id number] Care Team Providers Name Role Phone Unavailable Unavailable Unavailable Problems This patient has no known problems. Allergies, Adverse Reactions, Alerts This patient has no known allergies or adverse reactions. Medications This patient has no known medications.
--- OUTSIDE RECORDS SUMMARY | 2019-08-02 12:03 | XMS REPORT | Summary of Care ---
:1955 Author Organization [facility] - Health Address [address] [place] [address] Care Team Providers Name Role Phone Gianluca Wolfe Primary Care Provider Encounter Details Date Type Department Care Team Description 07/26/2019 Orders Only [facility] Doctor Unassigned, No [address] [facility] Name [place] [id number] [address] [place] [address] Allergies Active Allergy Reactions Severity Noted Date Comments Penicillins Anaphylaxis 09/21/2007 Sulfa (Sulfonamide Antibiotics) Anaphylaxis 09/21/2007 documented as of this encounter (statuses as of 07/26/2019) Medications Medication Sig Dispensed Refills Start Date End Date Status omeprazole 20 mg capsule Take 20 mg by 0 05/07/2017 Active mouth daily. cyclobenzaprine 10 mg Take 10 mg by 0 05/23/2017 Active tablet mouth as needed. amitriptyline 100 mg Take 200 mg by 0 05/23/2017 Active tablet mouth at bedtime. proMETHazine 25 mg Take 25 mg by 0 06/04/2017 Active tablet mouth every 6 (six) hours. meclizine 25 mg tablet Take 25 mg by 0 05/07/2017 Active mouth every 6 (six) hours. ALPRAZolam 1 mg tablet Take 1 mg by 0 03/17/2017 Active mouth daily. fludrocortisone 0.1 mg One tablet 45 tablet 3 06/09/2017 Active tabletIndications: three times a [place] disease week Oxycodone 10 mg Tab 0 12/31/2017 Active traZODONE 50 mg tablet 50 mg at 0 12/25/2017 Active bedtime. zaleplon 5 mg capsule 0 12/03/2017 Active azithromycin 250 mg One tablet once 4 tablet 0 01/12/2018 Active tablet daily BABY ASPIRIN ORAL Take 81 mg by 0 Active mouth. rosuvastatin 10 mg Take 10 mg by 0 Active tablet mouth at bedtime. DULoxetine 60 mg capsule Take 60 mg by 0 Active mouth daily. estradiol 2 mg tablet Take 2 mg by 0 Active mouth daily. melatonin 10 mg Tab Take 10 mg by 0 Active mouth. clonazePAM 2 mg tablet Take 2 mg by 0 Active mouth 3 (three) times daily. VALERIAN ROOT ORAL Take by mouth. 0 Active fludrocortisone 0.1 mg Take 1 tablet 30 tablet 0 02/03/2019 Active tablet by mouth daily. 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 documented as of this encounter Last Filed Vital Signs Not on filedocumented in this encounter Plan of Treatment Date Type Specialty Care Team Description 07/26/2019 Office Visit Endocrinology Diabetes & Chasidy Schmitz MD Metabolism [address] [place] [address] [phone] 12/06/2019 Record Keeper Visit Endocrinology Diabetes & Joyce Irizarry RD Metabolism [address] [place] [address] [phone] Health Maintenance Due Date Last Done Comments DTaP,Tdap,and Td Vaccines (1 - 1975 Tdap) PAP SMEAR 1977 MAMMOGRAM 1996 COLONOSCOPY 2006 Zoster Recombinant Vaccine 2006 (SHINGRIX) (1 of 2) LUNG CANCER SCREEN: Recommended 2011 for age 55-80 with 30 + pack year history INFLUENZA VACCINE (#1) 2019 01/12/2018 HEPATITIS C (HCV) SCREEN Completed 07/30/2006 PNEUMOCOCCAL 0-64 YEARS COMBINED Aged Out No longer eligible based on SERIES patient's age to complete this topic documented as of this encounter Procedures Procedure Name Priority Date/Time Associated Diagnosis Comments ASSIGNMENT OF BENEFITS Routine 07/26/2019 1:12 PM CDT documented in this encounter Results Not on filedocumented in this encounter Insurance Payer Benefit Plan / Subscriber ID Effective Phone Address Type Group Dates [employer] MEDICARE [id number] 2019-Prese Medicare Adv HEALTHCARE COMPLETE nt PPO MEDICARE CHOICE ADVANTAGE documented as of this encounter
--- OUTSIDE RECORDS SUMMARY | 2019-08-02 12:04 | XMS REPORT | Summary of Care ---
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 Abnormal thyroid blood test; Professional Office [place], [place] Osteopenia of hip, unspecified laterality; [place] [phone] Drug-induced Debbie's syndrome [address] [place] [address] [address] [place] [address] Allergies Active Allergy Reactions Severity Noted Date Comments Penicillins Anaphylaxis 09/21/2007 Sulfa (Sulfonamide Antibiotics) Anaphylaxis 09/21/2007 documented as of this encounter (statuses as of 07/26/2019) Medications Medication Sig Dispensed Refills Start Date End Date Status omeprazole 20 mg Take 20 mg by 0 05/07/2017 Active capsule mouth daily. cyclobenzaprine 10 mg Take 10 mg by 0 05/23/2017 Active tablet mouth as needed. amitriptyline 100 mg Take 200 mg 0 05/23/2017 Active tablet by mouth at bedtime. proMETHazine 25 mg Take 25 mg by 0 06/04/2017 Active tablet mouth every 6 (six) hours. meclizine 25 mg Take 25 mg by 0 05/07/2017 Active tablet mouth every 6 (six) hours. ALPRAZolam 1 mg Take 1 mg by 0 03/17/2017 Active tablet mouth daily. fludrocortisone 0.1 One tablet 45 tablet 3 06/09/2017 Active mg tabletIndications: three times a Graciela disease week Oxycodone 10 mg Tab 0 12/31/2017 Active traZODONE 50 mg 50 mg at 0 12/25/2017 Active tablet bedtime. zaleplon 5 mg capsule 0 12/03/2017 Active azithromycin 250 mg One tablet 4 tablet 0 01/12/2018 Active tablet once daily BABY ASPIRIN ORAL Take 81 mg by 0 Active mouth. rosuvastatin 10 mg Take 10 mg by 0 Active tablet mouth at bedtime. DULoxetine 60 mg Take 60 mg by 0 Active capsule mouth daily. estradiol 2 mg tablet Take 2 mg by 0 Active mouth daily. melatonin 10 mg Tab Take 10 mg by 0 Active mouth. clonazePAM 2 mg Take 2 mg by 0 Active tablet mouth 3 (three) times daily. VALERIAN ROOT ORAL Take by 0 Active mouth. fludrocortisone 0.1 Take 1 tablet 30 tablet 0 02/03/2019 Active mg tablet by mouth daily. 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 Chest pain 01/11/2018 Obesity (BMI 30-39.9) 01/11/2018 Elevated alkaline phosphatase level 06/09/2017 Abnormal thyroid blood test 06/09/2017 Graciela disease 06/09/2017 documented as of this encounter [...] of this encounter Last Filed Vital Signs Vital Sign Reading Time Taken Comments Blood Pressure 135/78 07/26/2019 1:21 PM CDT Pulse 81 07/26/2019 1:21 PM CDT Temperature - - Respiratory Rate 18 07/26/2019 1:21 PM CDT Oxygen Saturation - - Inhaled Oxygen Concentration - - Weight 77.1 kg (170 lb) 07/26/2019 1:21 PM CDT Height 158.8 cm (5' 2.5") 07/26/2019 1:21 PM CDT Body Mass Index 30.6 07/26/2019 1:21 PM CDT documented in this encounter Progress Notes Chasidy Schmitz MD - 07/26/2019 1:30 PM CDT chief complaint: Graciela disease, Positive TPO AB- follow up HPI Patient is a 63 year old /White female here for graciela disease. 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 H/o ? Hypothyroidism: Cytomel 5 mcg bid on her list but had not been taking that. TPO AB were elevated however TFT's at goal. Normal pituitary on MRI [address] adrenals No h/o steroids or oral thrush. H/o asthma- not on treatment. Denies chronic steroid use prior to adrenal insufficiency diagnosis H/o IBS ( on medications), excess sleep, nausea ( takes medications). 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 Peak coprtisol at 5. Current medications: Hydrocortisone 20 mg in morning and 10 mg at 2 PM. Florinef 0.1 mg 3 times a week Medical alert: No, was advised Sick day rules: Patient aware and following instruction TPO AB positive:TFT's have been normal. Dr Valladares started Cytomel 5 mcg that was stopped in 06/2018 Osteopenia: FRAX not high as below Last vit D normal 12/2018 Patient reports worsening fatigue in last 2-3 months. She had nutrition visit in 05/2019 and reportscompliance with diet instruction. She achieved 9lbs weight loss since HISTORY Past Medical History: Diagnosis Date [place]'s disease 2010 Sepsis 11/2016 Past Surgical History: Procedure Laterality Date APPENDECTOMY CHOLECYSTECTOMY EGD (ENDO) HYSTERECTOMY Total Family History Problem Relation Age of Onset Thyroid Mother Thyroid Daughter Social History Socioeconomic History Marital status: Spouse name: Not on file Number of children: Not on file Years of education: Not on file Highest education level: Not on file Occupational History Not on file Social Needs Financial resource strain: Not on file Food insecurity: Worry: Not on file Inability: Not on file Transportation needs: Medical: Not on file Non-medical: Not on file Tobacco Use Smoking status: Former Smoker Substance and Sexual Activity Alcohol use: Not on file Drug use: Not on file Sexual activity: Not on file Lifestyle Physical activity: Days per week: Not on file Minutes per session: Not on file Stress: Not on file Relationships Social connections: Talks on phone: Not on file Gets together: Not on file Attends adventist service: Not on file Active member of club or organization: Not on file Attends meetings of clubs or organizations: Not on file Relationship status: Not on file Intimate partner violence: Fear of current or ex partner: Not on file Emotionally abused: Not on file Physically abused: Not on file Forced sexual activity: Not on file Other Topics Concern Not on file Social History Narrative Not on file REVIEW OF SYSTEMS Constitutional: + weight loss- 9 Lb, + fatigue Eyes: denies blurry vision, denies decreased vision and denies diplopia. Nose/Sinuses: denies congestion and denies rhinorrhea . Mouth/Throat: denies dysphagia and denies hoarseness. Cardiovascular: denies chest pain and denies palpitations. Respiratory: denies chest congestion and denies shortness of breath. Gastrointestinal: denies abdominal pain,+ chronic constipation ( IBS), denies diarrhea and + chronicnausea. Genitourinary: denies dysuria. Musculoskeletal: Denies myalgias Skin:no pigmentation or rashes Psych: + feels depressed. NO suicidal ideations Neuro: denies headache and denies tremor. Endocrine: Denies intolerance to cold or heat PHYSICAL EXAM No results found for: POCGLU CREATININE (MG/DL) Date Value 09/21/2007 0.78 CREATININE-Q (mg/dL) Date Value 01/12/2019 0.81 HEMOGLOBIN A1c-Q (% of total Hgb) Date Value 01/12/2019 5.6 BP 135/78 | Pulse 81 | Resp 18 | Ht 5' 2.5" (1.588 m) | Wt 170 lb (77.1 kg) | BMI 30.60 kg/m General: alert, oriented times three, no apparent distress, appearing age appropriate. Skin: skin color and turgor are normal, no hyperpigmentation Head: normocephalic, no masses, lesions, tenderness or abnormalities. Eyes: anicteric sclera, pupils are equally round and reactive to light. Neck: No acanthosis nigricans Thyroid: normal size and consistency to palaption Lungs: good diaphragmatic excursion, lungs clear to auscultation bilaterally. Heart: regular rate and rhythm, no murmurs, gallops or rubs. Abdomen: abdomen soft, non-tender, normal active bowel sounds, + obese. Neuro: unremarkable without focal findings. Extremities/Musculoskeletal: no cyanosis, no edema . Component Latest Ref Rng & Units 06/09/2017 06/09/2017 06/09/2017 10:25 AM 10:25 AM 10:25 AM TPO Ab 0.0 - 100.0 WHO Units 294.8 (H) Component Latest Ref Rng & Units 02/23/2019 06/09/2017 11:42 AM 10:25 AM TSH 0.45 - 4.70 mIU/L 1.60 1.85 Component Latest Ref Rng & Units 02/23/2019 06/09/2017 11:42 AM 10:25 AM FREE T4 0.78 - 2.20 ng/dL 1.01 0.94 Component Latest Ref Rng & Units 08/13/2018 08/13/2018 08/13/2018 08/13/2018 9:30 AM 9:00 AM 8:28 AM 8:28 AM DANNY 0 4.5 - 23.0 ug/dL 2.2 (L) DANNY 30 ug/dL 5.2 DANNY 60 ug/dL 5.9 ACTH 6 - 58 pg/mL 12 Component Latest Ref Rng & Units 01/12/2019 12:06 PM VITAMIN D, 25-OH, TOTAL-Q 30 - 100 ng/mL 47 ASSESSMENT Graciela disease Comment: stable and compliance with steroid replacement Sick day rules discussed again Medical alert advised again Plan: Patient needs IV Hydrocortisone - stress doses 100 mg q 8 when acutely ill or hospitalized Continue Florinef to 0.1 mg 3 times a week ( patient's preference). BP normal Continue HC 20 mg am and 10 mg at 2 PM - COMP. METABOLIC PANEL (25025); Future - ADRENOCORTICOTROPIC HORMONE; Future - THYROID STIMULATING HORMONE; Future - T4 FREE; Future - FREE T3; Future - DEXA AXIAL (HIP AND SPINE); Future - hydrocortisone 10 mg tablet; TAKE TWO TABLETS BY MOUTH IN THE MORNING AND ONE TABLET AT 2:00PM, take extra on sick days Dispense: 140 tablet; Refill: 6 2. Anti-TPO antibodies present 3. Abnormal thyroid blood test At risk for hypothyroid. Reports worsening fatigue Plan repeat TFTs for screening - THYROID STIMULATING HORMONE; Future - T4 FREE; Future - FREE T3; Future 4. Osteopenia of hip, unspecified laterality 5. Drug-induced Munson's syndrome Comment: FRAX not high and VITAMIN D, 25-OH was normal. However, she has risk factor of chronic steroid use Plan Repeat DEXA now - DEXA AXIAL (HIP AND SPINE); Future Leilani Parada RN - 07/26/2019 1:30 PM CDT Dulce Cerna is a 63 year old female seen for a follow up visit for thyroid; Patient Active Problem List Diagnosis Elevated alkaline phosphatase level Abnormal thyroid blood test Graciela disease Anti-TPO antibodies present Chest pain Obesity (BMI 30-39.9) Current Outpatient Medications on File Prior to Visit Medication Sig Dispense Refill hydrocortisone 10 mg tablet TAKE TWO TABLETS BY MOUTH IN THE MORNING AND ONE TABLET AT 2:00PM, take extra on sick days 140 tablet 3 fludrocortisone 0.1 mg tablet Take 1 tablet by mouth daily. 30 tablet 0 BABY ASPIRIN ORAL Take 81 mg by mouth. clonazePAM 2 mg tablet Take 2 mg by mouth 3 (three) times daily. DULoxetine 60 mg capsule Take 60 mg by mouth daily. estradiol 2 mg tablet Take 2 mg by mouth daily. melatonin 10 mg Tab Take 10 mg by mouth. rosuvastatin 10 mg tablet Take 10 mg by mouth at bedtime. VALERIAN ROOT ORAL Take by mouth. azithromycin 250 mg tablet One tablet once daily 4 tablet 0 Oxycodone 10 mg Tab traZODONE 50 mg tablet 50 mg at bedtime. zaleplon 5 mg capsule ALPRAZolam 1 mg tablet Take 1 mg by mouth daily. amitriptyline 100 mg tablet Take 200 mg by mouth at bedtime. cyclobenzaprine 10 mg tablet Take 10 mg by mouth as needed. fludrocortisone 0.1 mg tablet One tablet three times a week 45 tablet 3 meclizine 25 mg tablet Take 25 mg by mouth every 6 (six) hours. omeprazole 20 mg capsule Take 20 mg by mouth daily. proMETHazine 25 mg tablet Take 25 mg by mouth every 6 (six) hours. No current facility-administered medications on file prior to visit. Level of pain is 7 out of 10 Location of pain is back, right leg and right hip Appearance: healthy,alert,cooperative. This patient is accompanied in the office by her self. Medications and allergies reviewed with patient by ROYAL Dong. documented in this encounter Plan of Treatment Date Type Specialty Care Team Description 12/06/2019 Skimmer Visit Endocrinology Diabetes & Joyce Irizarry RD Metabolism [address] [place] [address] [phone] 01/24/2020 Office Visit Endocrinology Diabetes & Chasidy Schmitz MD Metabolism [address] [place] [address] [phone] Name Type Priority Associated Diagnoses Order Schedule COMP. METABOLIC PANEL LAB Routine [place] disease 1 Occurrences (58750) starting 07/26/2019 until 09/25/2019 ADRENOCORTICOTROPIC HORMONE LAB Routine [place] disease 1 Occurrences starting 07/26/2019 until 09/25/2019 THYROID STIMULATING HORMONE LAB Routine Graciela disease 1 Occurrences Anti-TPO antibodies starting 07/26/2019 present until 09/25/2019 T4 FREE LAB Routine Graciela disease 1 Occurrences Anti-TPO antibodies starting 07/26/2019 present until 09/25/2019 FREE T3 LAB Routine [place] disease 1 Occurrences Anti-TPO antibodies starting 07/26/2019 present until 09/25/2019 DEXA AXIAL (HIP AND SPINE) IMAGING Routine Drug-induced Expected: Munson's syndrome 07/26/2019, Expires: Graciela disease 07/26/2020 Osteopenia of hip, unspecified laterality Health Maintenance Due Date Last Done Comments [...] this topic documented as of this encounter Results Not on filedocumented in this encounter Visit Diagnoses Diagnosis [place] disease - Primary Glucocorticoid deficiency Anti-TPO antibodies present Other and unspecified nonspecific immunological findings Abnormal thyroid blood test Nonspecific abnormal results of thyroid function study Osteopenia of hip, unspecified laterality Drug-induced Munson's syndrome Debbie's syndrome documented in this encounter Insurance Payer Benefit Plan / Subscriber ID Effective Phone Address Type Group Dates [employer] MEDICARE [id number] 2019-Prese Medicare Adv HEALTHCARE COMPLETE nt PPO MEDICARE CHOICE ADVANTAGE documented as of this encounter
--- OUTSIDE RECORDS SUMMARY | 2019-08-02 12:04 | XMS REPORT | Summary of Care ---
:1955 Author Organization [facility] - [facility] Address [address] [place] [address] Care Team Providers Name Role Phone Gianluca Wolfe Primary Care Provider Reason for Referral Radiology Services (Routine) Status Reason Specialty Diagnoses / Referred By Referred To Procedures Contact Contact New Request Diagnostic Diagnoses Drug-induced [place]'s syndrome [place] disease Osteopenia of hip, unspecified laterality Chasidy Schmitz, Radiology Procedures DEXA AXIAL (HIP AND SPINE) [facility] [place] [address] Reason for Visit Reason Comments Follow-up Thyroid Problem Encounter Details Date Type Department Care Team Description 07/26/2019 Office Visit [facility] Chasidy Schmitz MD Graciela disease (Primary Dx); Endocrinology- [address] [place] [address] Anti-TPO antibodies present; [facility] Abnormal thyroid blood test; Professional Office [place], [place] Osteopenia of hip, unspecified laterality; [place] [phone] Drug-induced Debbie's syndrome [address] [place] [address] [address] [place] [address] Allergies Active Allergy Reactions Severity [...] tablet 6 07/26/2019 Active tabletIndications: TABLETS BY [place] disease MOUTH IN THE MORNING AND ONE [...] since HISTORY Past Medical History: Diagnosis Date [place]an[place]'s disease 2010 Sepsis 11/2016 Past Surgical History: [...] file Gets together: Not on file Attends voodoo service: Not on file Active member of [...] at 2 PM - COMP. METABOLIC PANEL (17213); Future - ADRENOCORTICOTROPIC HORMONE; Future - THYROID [...] Osteopenia of hip, unspecified laterality 5. 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 METABOLIC PANEL LAB Routine [place] disease 1 Occurrences (27797) starting 07/26/2019 until 09/25/2019 ADRENOCORTICOTROPIC HORMONE LAB Routine [place] disease 1 Occurrences starting 07/26/2019 until 09/25/2019 THYROID STIMULATING HORMONE LAB Routine Graciela disease 1 Occurrences Anti-TPO antibodies starting 07/26/2019 present until 09/25/2019 T4 FREE LAB Routine Graciela disease 1 Occurrences Anti-TPO antibodies starting 07/26/2019 present until 09/25/2019 FREE T3 LAB Routine [place] disease 1 Occurrences Anti-TPO antibodies starting 07/26/2019 present until 09/25/2019 DEXA AXIAL (HIP AND SPINE) IMAGING Routine Drug-induced Expected: [place]'s syndrome 07/26/2019, Expires: Graciela disease 07/26/2020 Osteopenia [...] filedocumented in this encounter Visit Diagnoses Diagnosis [place]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
--- NOTE | 2019-08-02 13:42 | RAD REPORT ---
EXAM DESCRIPTION: RAD - Chest Single View - 08/02/2019 1:32 pm CLINICAL HISTORY: Fall, chest pain COMPARISON: May 23 TECHNIQUE: AP portable chest image was obtained 1311 hours . FINDINGS: Lungs are clear. Heart and vasculature are normal. No measurable pleural effusion and no p neumothorax. No acute bony abnormality seen. No acute aortic findings suspected. IMPRESSION: No acute cardiopulmonary process. No significant change from comparison.
[2019-08-02 13:48] LABS: Urine Blood NEGATIVE (NEG); Urine Glucose NEGATIVE (NEG); Urine Protein NEGATIVE (NEG)
[2019-08-02 14:02] LABS: Urine RBC <5 /HPF (NONE SEEN)
[2019-08-02 14:03] LABS: Urine Bacteria <20 /HPF (<20); Urine Culture Reflex Order NOT NEEDED
[2019-08-02] MEDS ORDERED: HYDROCORTISONE SUC 100 MG INJ ONE (14:23)
[2019-08-02] MEDS ORDERED: NA CHLORIDE 0.9% 1,000 ML ONE (14:27)
[2019-08-02 14:32] LABS: Absolute Lymphocytes (CBC) 0.6 K/uL (0.7-4.9); Basophils % 0.6 % (0-1.3); Lymphocytes % 6.6 % (15.3-44.8); RBC Red Blood Cell Count 3.78 M/uL (3.86-4.86)
[2019-08-02 14:50] LABS: Potassium 5.4 mmol/L (3.5-5.1)
[2019-08-02 14:51] LABS: Blood Morphology Comment NOT SEEN (NOT SEEN); Platelet Estimate ADEQ; Urine White Blood Cell Casts OK
--- NOTE | 2019-08-02 16:07 | RAD REPORT ---
EXAM DESCRIPTION: CT - Abdomen Pelvis W Contrast - 08/02/2019 3:26 pm CLINICAL HISTORY: Abdominal pain . COMPARISON: June 2019 TECHNIQUE: Computed axial tomography of the abdomen pelvis was obtained. 100 cc Isovue-300 was admin istered intravenously. Oral contrast was not requested which limits evaluation of bowel. All CT scans are performed using dose optimization technique as appropriate and may include automated exposure control or mA/KV adjustment according to patient size. FINDINGS: Pneumobilia unchanged. Liver is otherwise unremarkable. Spleen, pancreas, adrenals left kidney are unremarkable [place]aghorn right renal calculus unchanged. No hydronephrosis. Cholecystectomy Mild dilatation of the transverse and right colon is present. Large amount of stool is present within the transverse and right colon as well. IMPRESSION: Mild dilatation of the transverse and right colon is present. Large amount of stool is p resent within the transverse and right colon as well.
--- NOTE | 2019-08-02 17:34 | ER ---
Nurse's Notes [facility] Name: Dulce Cerna Age: 63 yrs Sex: Female : 1955 Arrival Date: 08/02/2019 Time: 12:03 Bed 3 Private MD: Brayan Valladares E Diagnosis: Dehydration;Weakness Presentation: 08/02 12:17 Presenting complaint: Patient states: Last night I slid off the bed and hit my but on la1 the floor. I am very shaky and have a history of Addisons. Transition of care: patient was not received from another setting of care. Onset of symptoms was August 02, 2019. Risk Assessment: Do you want to hurt yourself or someone else? Patient reports no desire to harm self or others. Initial Sepsis Screen: Does the patient meet any 2 criteria? No. Patient's initial sepsis screen is negative. Does the patient have a suspected source of infection? No. Patient's initial sepsis screen is negative. Care prior to arrival: None. 12:17 Method Of Arrival: Wheelchair la1 12:17 Acuity: TRACY 3 la1 Historical: - Allergies: 12:16 "pain pills"; la1 12:16 PENICILLINS; la1 12:16 Sulfa (Sulfonamide Antibiotics); la1 - PMHx: 12:16 addisons; Chronic pain; Irritable bowel syndrome; TIA; la1 - Immunization history:: Adult Immunizations up to date. - Social history:: Smoking status: Patient/guardian denies using tobacco. - Ebola Screening: : No symptoms or risks identified at this time. - Family history:: not pertinent. - Hospitalizations: : No recent hospitalization is reported. Screenin:57 Abuse screen: Denies threats or abuse. Denies injuries from another. Nutritional rv screening: No deficits noted. Tuberculosis screening: No symptoms or risk factors identified. Fall Risk None identified. Assessment: 12:10 General: Appears in no apparent distress. comfortable, Behavior is calm, cooperative, aj1 appropriate for age. Pain: Complains of pain in back Pain currently is 8 out of 10 on a pain scale. Neuro: Level of Consciousness is awake, alert, obeys commands, Oriented to person, place, time, situation, Speech is normal, Facial symmetry appears normal, Reports feeling shaky and generalized weakness. Cardiovascular: Heart tones S1 S2 present Patient's skin is warm and dry. Respiratory: Airway is patent Respiratory effort is even, unlabored, Respiratory pattern is regular, symmetrical, Breath sounds are clear bilaterally. GI: Abdomen is non-distended, Reports poor appetite\\E\\ Patient currently denies diarrhea, nausea, vomiting. : No signs and/or symptoms were reported regarding the genitourinary system. EENT: No signs and/or symptoms were reported regarding the EENT system. Derm: No signs and/or symptoms reported regarding the dermatologic system. Skin is pink, warm \\T\\ dry. normal. Musculoskeletal: No signs and/or symptoms reported regarding the musculoskeletal system. Circulation, motion, and sensation intact. 13:10 Reassessment: Patient appears in no apparent distress at this time. No changes from aj1 previously documented assessment. Patient and/or family updated on plan of care and expected duration. Pain level reassessed. Patient is alert, oriented x 3, equal unlabored respirations, skin warm/dry/pink. 14:10 Reassessment: Patient appears in no apparent distress at this time. No changes from aj1 previously documented assessment. Patient and/or family updated on plan of care and expected duration. Pain level reassessed. Patient is alert, oriented x 3, equal unlabored respirations, skin warm/dry/pink. 14:56 General: Appears in no apparent distress. comfortable, Behavior is calm, cooperative. rv Pain: Denies pain. Neuro: Level of Consciousness is awake, alert, obeys commands, Oriented to person, place, time, situation. Cardiovascular: Patient's skin is warm and dry. Respiratory: Airway is patent. GI: No signs and/or symptoms were reported involving the gastrointestinal system. : No signs and/or symptoms were reported regarding the genitourinary system. EENT: No signs and/or symptoms were reported regarding the EENT system. Derm: Skin is intact. Musculoskeletal: No signs and/or symptoms reported regarding the musculoskeletal system. 15:06 Reassessment: AWAITING MANUFACTURING SYSTEMS ENGINEER TO GET ADDITIONAL BLOOD WORKS. rv 16:55 Reassessment: valet attendant got the blood from the right foot. specimen sent to lab. rv awaiting result. Vital Signs: 12:16 BP 130 / 106; Pulse 88; Resp 16; Temp 97.7; Pulse Ox 98% on R/A; Weight 63.5 kg; Height la1 5 ft. 3 in. (160.02 cm); 15:03 BP 150 / 77; Pulse 68; Resp 10; Pulse Ox 95% on R/A; rv 16:54 BP 171 / 82; Pulse 64; Resp 17; Pulse Ox 99% on R/A; rv 17:50 BP 146 / 86; Pulse 66; Resp 15; Pulse Ox 98% on R/A; rv 12:16 Body Mass Index 24.80 (63.50 kg, 160.02 cm) la1 ED Course: 12:03 Patient arrived in ED. rg4 12:03 Brayan Valladares MD is Private Physician. rg4 12:15 Arm band placed on right wrist. la1 12:18 Triage completed. la1 12:38 Brad Hernández MD is Attending Physician. rn 12:39 Pat Chen RN is Primary Nurse. aj1 13:31 X-ray completed. Portable x-ray completed in exam room. Patient tolerated procedure jb2 well. 13:48 EKG done, by automotive exhaust emissions technician. reviewed by Brad Hernández MD. tc 14:15 Report given to ROYAL Hutton. aj1 14:20 Inserted saline lock: 24 gauge in right forearm, using aseptic technique. Blood rv collected. 14:57 Patient has correct armband on for positive identification. Placed in gown. Bed in low rv position. Call light in reach. Side rails up X 1. Pulse ox on. NIBP on. 15:53 CT Abd/Pelvis - IV Contrast Only In Process Unspecified. EDMS 17:51 No provider procedures requiring assistance completed. IV discontinued, intact, rv bleeding controlled, No redness/swelling at site. Pressure dressing applied. Administered Medications: 14:28 Drug: HydroCORTISONE 100 mg Route: IVP; Site: right forearm; rv 14:32 Drug: NS 0.9% 1000 ml Route: IV; Rate: 1000 ml; Site: right antecubital; rv Outcome: 17:33 Discharge ordered by . rn 17:51 Discharged to home via wheelchair, with family. rv 17:51 Condition: improved 17:51 Discharge instructions given to patient, Instructed on discharge instructions, follow up and referral plans. Demonstrated understanding of instructions, follow-up care. 17:51 Patient left the ED. rv Signatures: Dispatcher [employer] EDMS Pat Chen RN RN aj1 Antonino Yang2 Brad Hernández MD MD rn Callis, Tiffany, industrial relations worker EKG Ttc Donte Abdalla RN RN [email or web address] Noemy Rucker 4 Jah Alfredo, RN RN rv
--- NOTE | 2019-08-02 17:35 | EDPHYS ---
Physician Documentation [facility] Name: Dulce Cerna Age: 63 yrs Sex: Female : 1955 Arrival Date: 08/02/2019 Time: 12:03 Bed 3 Private MD: Brayan Valladares E ED Physician Brad Hernández HPI: 08/02 13:17 This 63 yrs old Female presents to ER via Wheelchair with complaints of rn Weakness. 13:17 The patient presents to the emergency department with weakness of the entire body, rn generalized weakness. Onset: The symptoms/episode began/occurred yesterday. Associated signs and symptoms: Pertinent positives: weakness, Pertinent negatives: altered mental status, fever, neck stiffness, paresthesias, seizure, syncope, blurred vision, double vision, visual field changes, loss of vision. Severity of symptoms: At their worst the symptoms were moderate in the emergency department the symptoms are unchanged. Current symptoms:. The patient has experienced similar episodes in the past. Reports generalized weakness, began yesterday, decreased PO intake lately, no headache/syncope/cough/sob/vomiting/diarrhea. + vague abd pain. NO blood in stool. Reports took extra dose of steroids this AM because has graciela's. NO urinary symptoms. . Historical: - Allergies: 12:16 "pain pills"; la1 12:16 PENICILLINS; la1 12:16 Sulfa (Sulfonamide Antibiotics); la1 - PMHx: 12:16 addisons; Chronic pain; Irritable bowel syndrome; TIA; la1 - Immunization history:: Adult Immunizations up to date. - Social history:: Smoking status: Patient/guardian denies using tobacco. - Ebola Screening: : No symptoms or risks identified at this time. - Family history:: not pertinent. - Hospitalizations: : No recent hospitalization is reported. ROS: 13:17 Constitutional: Negative for fever, and weight loss, Eyes: Negative for injury, pain, rn redness, and discharge, Neck: Negative for injury, pain, and swelling, Cardiovascular: Negative for chest pain, palpitations, and edema, Respiratory: Negative for shortness of breath, cough, wheezing, and pleuritic chest pain, Abdomen/GI: Negative for nausea, vomiting, diarrhea, and constipation, MS/Extremity: Negative for injury and deformity, Skin: Negative for injury, rash, and discoloration, Neuro: Negative for headache, numbness, tingling, and seizure. Exam: 13:17 Constitutional: This is a well developed, well nourished patient who is awake, alert, rn tremulous Head/Face: Normocephalic, atraumatic. Eyes: Pupils equal round and reactive to light, extra-ocular motions intact. Lids and lashes normal. Conjunctiva and sclera are non-icteric and not injected. Cornea within normal limits. Periorbital areas with no swelling, redness, or edema. ENT: dry MM Neck: Trachea midline, no thyromegaly or masses palpated, and no cervical lymphadenopathy. Supple, full range of motion without nuchal rigidity, or vertebral point tenderness. No Meningismus. Cardiovascular: Regular rate and rhythm. No pulse deficits. Respiratory: Lungs have equal breath sounds bilaterally, clear to auscultation. No increased work of breathing, no retractions or nasal flaring. Abdomen/GI: soft, mild left sided tenderness, no rebound MS/ Extremity: Pulses equal, no cyanosis. Neurovascular intact. Full, normal range of motion. Equal circumference. Neuro: Awake and alert, GCS 15. Cranial nerves II-XII grossly intact. Motor strength 4/5, with tremors, able to ambulate to bed with minor assistance. Vital Signs: 12:16 BP 130 / 106; Pulse 88; Resp 16; Temp 97.7; Pulse Ox 98% on R/A; Weight 63.5 kg; Height la1 5 ft. 3 in. (160.02 cm); 15:03 BP 150 / 77; Pulse 68; Resp 10; Pulse Ox 95% on R/A; rv 16:54 BP 171 / 82; Pulse 64; Resp 17; Pulse Ox 99% on R/A; rv 17:50 BP 146 / 86; Pulse 66; Resp 15; Pulse Ox 98% on R/A; rv 12:16 Body Mass Index 24.80 (63.50 kg, 160.02 cm) la1 MDM: 12:38 Patient medically screened. rn 17:30 Data reviewed: vital signs, nurses notes, lab test result(s), EKG, radiologic studies, rn CT scan, plain films, and as a result, I will discharge patient. Counseling: I had a detailed discussion with the patient and/or guardian regarding: the historical points, exam findings, and any diagnostic results supporting the discharge/admit diagnosis, lab results, radiology results, the need for outpatient follow up, to return to the emergency department if symptoms worsen or persist or if there are any questions or concerns that arise at home. Response to treatment: the patient's symptoms have markedly improved after treatment, sleeping comfortably, not shaking as much, normal HR. . Special discussion: I discussed with the patient/guardian in detail that at this point there is no indication for admission to the hospital. It is understood, however, that if the symptoms persist or worsen the patient needs to return immediately for re-evaluation. 17:31 ED course: Cortisol level good, is not hypotensive, feels better and family member rn states looks better, neg UA, neg cxr, no acute findings on CT, just constipation likely due to dehydration and chronic pain meds. Recommend dc home with hydration and pcp f/u. Return precautions given and understood.. 08/02 12:54 Order name: CBC with Diff; Complete Time: 15:17 08/02 12:54 Order name: Basic Metabolic Panel; Complete Time: 15:17 08/02 12:54 Order name: Urine Microscopic Only; Complete Time: 14:35 08/02 12:54 Order name: Flu; Complete Time: 15:17 08/02 12:54 Order name: Crook Screen Profile; Complete Time: 17:20 08/02 12:54 Order name: Cortisol; Complete Time: 17:20 08/02 12:54 Order name: XRAY Chest (1 view) 08/02 12:55 Order name: CT Abd/Pelvis - IV Contrast Only; Complete Time: 17:20 08/02 13:43 Order name: Urine Dipstick--Ancillary (enter results) 08/02 13:50 Order name: Urine Dipstick-Ancillary; Complete Time: 14:05 EDSC 08/02 14:54 Order name: CBC Smear Scan; Complete Time: 15:17 EDSC 08/02 15:41 Order name: RAD; Complete Time: 16:29 EDSC 08/02 12:54 Order name: IV Start; Complete Time: 14:33 rn 08/02 12:54 Order name: Urine Dipstick-Ancillary (obtain specimen); Complete Time: 16:56 08/02 12:54 Order name: EKG; Complete Time: 12:57 rn 08/02 12:54 Order name: EKG - Nurse/Tech; Complete Time: 14:59 rn Administered Medications: 14:28 Drug: HydroCORTISONE 100 mg Route: IVP; Site: right forearm; rv 14:32 Drug: NS 0.9% 1000 ml Route: IV; Rate: 1000 ml; Site: right antecubital; rv Disposition: 08/02/19 17:33 Discharged to Home. Impression: Dehydration, Weakness. - Condition is Stable. - Discharge Instructions: Dehydration, Adult, Weakness. - Medication Reconciliation Form, Thank You Letter, Antibiotic Education, Prescription Opioid Use form. - Follow up: Private Physician; When: As needed; Reason: Recheck today's complaints, Re-evaluation by your physician. - Problem is new. - Symptoms have improved. Signatures: Dispatcher [employer] EDMS Brad Hernández MD MD rn Attema, Lee, RN RN la1 Jah Alfredo RN RN rv Corrections: (The following items were deleted from the chart) 17:51 17:33 08/02/2019 17:33 Discharged to Home. Impression: Dehydration; Weakness. Condition rv is Stable. Forms are Medication Reconciliation Form, Thank You Letter, Antibiotic Education, Prescription Opioid Use. Follow up: Private Physician; When: As needed; Reason: Recheck today's complaints, Re-evaluation by your physician. Problem is new. Symptoms have improved. rn
[2019-08-02 18:28] VITALS: TEMP 97.7
--- NOTE | 2019-08-02 18:31 | EKG ---
Test Date: 2019-08-02 Test Time: 13:23:58 Cena: ZOE MEASUREMENT RESULTS: Intervals: Rate: 74 WV: 152 QRSD: 90 QT: 438 QTc: 486 Keller: P: 47 WV: 152 QRS: -2 T: 91 INTERPRETIVE STATEMENTS: Normal sinus rhythm with sinus arrhythmia Left ventricular hypertrophy with repolarization abnormality Abnormal ECG Compared to ECG 06/24/2019 19:54:37 Early repolarization now present ST (T wave) deviation no longer present Electronically Signed On 08-02-19 18:29:25 CDT by Michael Chávez
[2019-08-02 18:32] VITALS: BP 146/86; O2SAT 98
== END 2019-08-02 17:51 | disposition home or self-care (01) ==
LOC: ER 12:00
DX: E86.0 Dehydration (principal); K58.9 Irritable bowel syndrome, unspecified; Z88.0 Allergy status to penicillin; Z88.2 Allergy status to sulfonamides; Z88.6 Allergy status to analgesic agent
CPT/HCPCS: 93005; 85025; 80048; 36415; 86308; 82533; 87804 ×2; 74177; 71045; Q9967; J7030; J1720; 81003; 81015; 96374; 99284

== ENCOUNTER 2020-03-04 21:25 | Inpatient (IN) | payer OTHER ==
--- OUTSIDE RECORDS SUMMARY | 2020-03-04 21:27 | XMS REPORT ---
:1955 Author Organization [facility] t Address [address] Sidhu [address] [place] [address] Care Team Providers Name Role Phone Unavailable Unavailable Unavailable Problems This patient has no known problems. Allergies, Adverse Reactions, Alerts This patient has no known allergies or adverse reactions. Medications This patient has no known medications.
--- OUTSIDE RECORDS SUMMARY | 2020-03-04 21:30 | XMS REPORT | Summary of Care ---
:1955 Author Organization [facility] Address [address] [place] [id number] Care Team Providers Name Role Phone Yaneth Primary Care Provider Reason for Visit Reason Comments Refill Request Encounter Details Date Type Department Care Team Description 08/02/[address] [facility] Endocrinology- Marychuy Mcdonnell MD Refill Request [place] [facility] [address] [place] [address] Allergies Active Allergy Reactions Severity Noted Date Comments Penicillins Anaphylaxis 09/21/2007 Sulfa (Sulfonamide Antibiotics) Anaphylaxis 7 documented as of this encounter (statuses as of 08/02/2019) Medications Medication Sig Dispensed Refills Start Date [...] 3 06/09/2017 Active tabletIndications: three times a [place] disease week Oxycodone 10 mg Tab 0 [...] 0 02/03/2019 Active tablet by mouth daily. 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 Chest pain 01/11/2018 Obesity (BMI 30-39.9) 01/11/2018 Elevated alkaline phosphatase level 06/09/2017 Abnormal thyroid blood test 06/09/2017 [place] disease 06/09/2017 documented as of this encounter (statuses as of 08/02/2019) Immunizations Name Administration Dates Next Due Influenza [...] Treatment Date Type Specialty Care Team Description 08/03/2019 Appointment Radiology Chasidy Schmitz MD [address] [place] [address] [phone] 12/06/2019 Superintendent Operations Division Visit Endocrinology Diabetes & Joyce Irizarry, HANK Metabolism [address] [place] [address] [phone] 01/24/2020 Office Visit Endocrinology Diabetes & Schmitz, Wiliam salinas MD Metabolism [address] [place] [address] [phone] Health Maintenance Due Date Last Done Comments [...] filedocumented in this encounter 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
--- OUTSIDE RECORDS SUMMARY | 2020-03-04 21:30 | XMS REPORT | Summary of Care ---
:1955 Author Organization [facility] Address [address] [place] [address] Care Team Providers Name Role Phone Yaneth Primary Care Provider Reason for Visit Reason Comments Refill Request Encounter Details Date Type Department Care Team Description 02/28/2020 Refill [facility] Endocrinology- Chasidy Schmitz MD Refill Request [address] Professional Office [address] [place] [address] Allergies Active Allergy Reactions Severity Noted Date Comments Penicillins Anaphylaxis 09/21/2007 Sulfa (Sulfonamide Antibiotics) Anaphylaxis 7 documented as of this encounter (statuses as of 02/28/2020) Medications Medication Sig Dispensed Refills Start Date End Date Status omeprazole 20 mg capsule Take 20 mg by 0 05/07/2017 Active mouth daily. cyclobenzaprine 10 mg Take 10 mg by 0 05/23/2017 Active tablet mouth as needed. amitriptyline 100 mg Take 200 mg by 0 05/23/2017 Active tablet mouth at bedtime. proMETHazine 25 mg tablet Take 25 mg by 0 06/04/2017 Active mouth every 6 (six) hours. ALPRAZolam 1 mg tablet Take 1 mg by 0 03/17/2017 Active mouth daily. fludrocortisone 0.1 mg One tablet 45 tablet 3 06/09/2017 Active tabletIndications: three times a [place] disease week Additional information Patient taking differently: 0.2 mg DAILY, One tablet three times a week, Reported on 09/28/2019 1:26 PM Oxycodone 10 mg Tab 0 12/31/2017 Active zaleplon 5 mg capsule 0 12/03/2017 Active azithromycin 250 mg tablet One tablet once daily 4 tablet 0 0 01/12/2018 Active BABY ASPIRIN ORAL Take 81 mg by mouth. 0 Active rosuvastatin 10 mg tablet Take 10 mg by mouth at 0 Active bedtime. DULoxetine 60 mg capsule Take 60 mg by mouth 0 Active daily. estradiol 2 mg tablet Take 2 mg by mouth 0 Active daily. melatonin 10 mg Tab Take 10 mg by mouth. 0 Active clonazePAM 2 mg tablet Take 2 mg by mouth 3 0 Active (three) times daily. VALERIAN ROOT ORAL Take by mouth. 0 Active tiZANidine 2 mg tablet 0 06/10/2019 Active hydrocortisone 10 mg TAKE TWO TABLETS BY 140 tablet 6 07/26/20 Active tabletIndications: [place] MOUTH IN THE MORNING disease AND ONE TABLET AT 2:00PM, take extra on sick days levothyroxine 25 mcg Take 1 tablet by mouth 90 tablet 1 2018 Active tabletIndications: Subclinical every morning. 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 Chest pain 01/11/2018 Obesity (BMI 30-39.9) 01/11/2018 Elevated alkaline phosphatase level 06/09/2017 Abnormal thyroid blood test 06/09/2017 [place] disease 06/09/2017 documented as of this encounter (statuses as of 02/28/2020) Immunizations Name Administration Dates Next Due Influenza [...] filedocumented in this encounter Plan of Treatment Health Maintenance Due Date Last Done Comments DTaP,Tdap,and Td Vaccines (1 - 1967 Tdap) PAP SMEAR 1977 Breast Cancer Screening 1996 (MAMMOGRAM) COLONOSCOPY 2006 Zoster Recombinant Vaccine 2006 (SHINGRIX) [...] filedocumented in this encounter Visit Diagnoses Diagnosis Subclinical hypothyroidism Other specified acquired hypothyroidism documented in this encounter Insurance Payer Benefit Plan / Subscriber ID Effective Phone Address T ype Group Dates [facility] MEDICARE [id number] 2019-Silke velazquez [facility] HEALTHCARE COMPLETE nt PPO MEDICARE CHOICE ADVANTAGE documented as of this encounter
--- OUTSIDE RECORDS SUMMARY | 2020-03-04 21:30 | XMS REPORT | Summary of Care ---
:1955 Author Organization [facility] Address [address] [place] [address] Care Team Providers Name Role Phone Yaneth Primary Care Provider Reason for Visit Reason Comments Follow-up Encounter Details Date Type Department Care Team Description 01/24/2020 Office Visit [facility] Chasidy Schmitz MD ERRONEOUS Endocrinology- [facility] R--DISREGARD [facility] (Primary Dx) Professional Office [address] [place] [address] Allergies Active Allergy Reactions Severity Noted Date Comments Penicillins Anaphylaxis 09/21/2007 Sulfa (Sulfonamide Antibiotics) Anaphylaxis 7 documented as of this encounter (statuses as of 02/07/2020) Medications Medication Sig Dispensed Refills Start Date [...] 3 06/09/2017 Active tabletIndications: three times a Bruce disease week Additional information Patient taking differently: [...] TWO TABLETS BY 140 tablet 6 07/26/20 19 Active tabletIndications: [place] MOUTH IN THE MORNING disease AND ONE TABLET AT 2:00PM, take extra on sick days levothyroxine 25 mcg Take 1 tablet by mouth 90 tablet 1 2018 Active tabletIndications: Subclinical every morning. 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 documented as of this encounter (statuses as of 02/07/2020) Immunizations Name Administration Dates Next Due Influenza [...] Signs Not on filedocumented in this encounter Progress Notes Chasidy Schmitz MD - 01/24/2020 11:00 AM CSTNo show documented in this encounter Plan of Treatment Health [...] filedocumented in this encounter Visit Diagnoses Diagnosis ERRONEOUS ENCOUNTER--DISREGARD - Primary documented in this encounter Insurance Payer Benefit Plan / Subscriber ID Effective Phone Address T ype Group Dates [facility] MEDICARE [id number] 2019-Silke velazquez Adv HEALTHCARE COMPLETE nt PPO MEDICARE CHOICE ADVANTAGE documented as of this encounter
--- OUTSIDE RECORDS SUMMARY | 2020-03-04 21:30 | XMS REPORT | Summary of Care ---
:1955 Author Organization [facility] Address [address] [place] [address] Care Team Providers Name Role Phone Yaneth Primary Care Provider Reason for Visit Reason Comments Follow-up Encounter Details Date Type Department Care Team Description 01/24/2020 Office Visit [facility] Chasidy Schmitz MD ERRONEOUS Endocrinology- [facility] R--DISREGARD [facility] (Primary Dx) Professional Office [address] [place] [address] Allergies Active Allergy Reactions Severity [...] 140 tablet 6 07/26/20 19 Active tabletIndications: [place] MOUTH IN THE MORNING disease AND ONE [...] level 06/09/2017 Abnormal thyroid blood test 06/09/2017 [place] disease 06/09/2017 documented as of this encounter [...] Effective Phone Address T ype Group Dates [facility] MEDICARE [id number] 2019-Silke velazquez Adv HEALTHCARE COMPLETE nt PPO MEDICARE CHOICE ADVANTAGE documented as of this encounter
[2020-03-04] MEDS ORDERED: NA CHLORIDE 0.9% 1,000 ML ONE (21:55)
[2020-03-04] MEDS ORDERED: ACETAMINOPHEN 500 MG TAB ONE (21:55)
--- NOTE | 2020-03-04 23:02 | RAD REPORT ---
EXAM DESCRIPTION: Dasia Single View03/04/2020 10:21 pm CLINICAL HISTORY: cough COMPARISON: 2019 FINDINGS: Moderate alveolar opacities left lung. Right lung appears clear of acute infiltrate The heart is normal size IMPRESSION: Moderate left pneumonia
[2020-03-04] MEDS ORDERED: AZITHROMYCIN 500 MG INJ IVPB ONE (23:47)
[2020-03-04] MEDS ORDERED: Levofloxacin 750mg IV 750 MG/150 ML BAG IV ONE (23:47)
[2020-03-04] MEDS ORDERED: NA CHLORIDE 0.9% 250 ML ONE (23:47)
[2020-03-05 00:11] LABS: Absolute Lymphocytes (CBC) 1.3 K/uL (0.7-4.9)
[2020-03-05 00:14] LABS: Basophils % 0.2 % (0-1.3); Hematocrit 33.8 % (36.0-45.0); Lymphocytes % 10.3 % (15.3-44.8); MPV 9.4 fL (7.6-11.3); RBC Red Blood Cell Count 3.95 M/uL (3.86-4.86)
[2020-03-05] MEDS ORDERED: KETOROLAC 30 MG/ML INJ ONE (00:29)
[2020-03-05] MEDS ORDERED: LEVALBUTEROL 1.25 MG/3 ML NEB ONE (00:29)
[2020-03-05 00:33] LABS: ALT/SGPT 31 U/L (12-78); AST/SGOT 46 U/L (15-37); Alkaline Phosphatase 89 U/L (45-117); Amylase Level 29 U/L (25-115); BUN Blood Urea Nitrogen 17 mg/dL (7-18); Bicarbonate 31 mmol/L (21-32); Bilirubin Direct 0.2 mg/dL (0-0.2); Bilirubin Total 0.3 mg/dL (0.2-1.0); CKMB Creatine Kinase MB 1.7 ng/mL (0.3-3.6); Creatine Phosphokinase 579 U/L (26-192); Glucose Level 67 mg/dL (74-106); Lipase 44 U/L (73-393); Potassium 3.5 mmol/L (3.5-5.1); Protein, Total 6.7 g/dL (6.4-8.2); Protime INR 0.95; Sodium Level 141 mmol/L (136-145); Troponin (Emerg Dept Use Only) < 0.02 ng/mL (0.0-0.045)
[2020-03-05] MEDS ORDERED: MORPHINE 2 MG/ML SYR ONE (02:13)
[2020-03-05] MEDS ORDERED: NA CHLORIDE 0.9% 500 ML ONE (02:14)
--- NOTE | 2020-03-05 02:30 | ER ---
Nurse's Notes [facility] Name: Dulce Cerna Age: 64 yrs Sex: Female : 1955 Arrival Date: 03/04/2020 Time: 21:26 Bed 30 Private MD: Diagnosis: Pneumonia, unspecified organism;Streptococcal pharyngitis Presentation: 03/04 21:27 Chief complaint: EMS states: Called for patient with shortness of breath, fever, lp1 chills, cough, generalized abdominal pain that began at 1500 today; Temp of 100.8 per EMS, O2 in 80's on RA, improved with NRB. Coronavirus screen: Patient reports a cough. Patient reports shortness of breath or difficulty breathing. Patient reports a measured and/or subjective temperature greater than 100.4F. Patient denies travel on a cruise ship or to a country the [facility] currently lists as an affected area. Patient denies contact with known and/or suspected case of COVID-19. Ebola Screen: No symptoms or risks identified at this time. Initial Sepsis Screen: Does the patient meet any 2 criteria? RR > 20 per min. HR > 90 bpm. Does the patient have a suspected source of infection? Yes: Other: unknown. Risk Assessment: Do you want to hurt yourself or someone else? Patient reports no desire to harm self or others. Onset of symptoms was March 04, 2020. Care prior to arrival: Oxygen administered. via a non-rebreather mask. 21:27 Method Of Arrival: EMS: [facility] lp1 21:27 Acuity: TRACY 2 lp1 Historical: - Allergies: 21:31 "pain pills"; lp1 21:31 PENICILLINS; lp1 21:31 Sulfa (Sulfonamide Antibiotics); lp1 - Home Meds: 22:10 Oxycodone HCl Oral [Active]; duloxetine oral oral [Active]; Hydrocortisone Oral lp1 [Active]; aspirin 81 mg Oral TbEC 1 tab once daily [Active]; Crestor oral oral [Active]; Amitriptyline Oral [Active]; Estradiol Oral [Active]; Miralax Oral [Active]; - PMHx: 21:31 addisons; Chronic pain; Irritable bowel syndrome; TIA; lp1 22:10 early dementia; Hyperlipidemia; Depression; lp1 - PSHx: 22:10 Cholecystectomy; Hysterectomy; Appendectomy; lp1 - Immunization history:: Adult Immunizations unknown. - Social history:: Smoking status: Patient denies any tobacco usage or history of. Screenin:38 Abuse screen: Denies threats or abuse. Denies injuries from another. Nutritional rv screening: No deficits noted. Tuberculosis screening: No symptoms or risk factors identified. Fall Risk None identified. Assessment: 21:35 Reassessment: Spoke with patient's sister, Yashira Buitrago, for patient history; number lp1 given for any concerns or updates [phone]. 22:36 General: Appears in no apparent distress. Behavior is restless. Pain: Complains of pain rv in abdomen. Neuro: Level of Consciousness is confused. Cardiovascular: Patient's skin is warm and dry. Respiratory: Airway is patent Breath sounds are clear bilaterally. GI: Abdomen is round non-distended, Abdomen is tender to palpation in left upper quadrant and left lower quadrant. Derm: Skin is intact. 23:14 Reassessment: missed midline attempt to RUE, a pressure dressing has been applied, see sg IV insertion/missed attempt documentation, ERP notified no IV access established at this tamia. 03/05 08:57 Reassessment: [facility]# [id number]. iw Vital Signs: 03/04 21:20 BP 139 / 77; Pulse 102; Resp 21; Pulse Ox 87% on R/A; rv 21:27 BP 139 / 77; Pulse 104; Resp 24; Temp 103.2(O); Pulse Ox 90% on R/A; Weight 74.84 kg lp1 (R); 21:30 BP 137 / 84; Pulse 100; Resp 21; Pulse Ox 90% on 2 lpm NC; rv 22:30 BP 120 / 109; Pulse 96; Resp 21; Pulse Ox 91% on 2 lpm NC; rv 03/05 00:00 BP 95 / 52; Pulse 90; Resp 19; Pulse Ox 96% on 2 lpm NC; rv 00:30 BP 102 / 81; Pulse 89; Resp 20; Pulse Ox 97% on 2 lpm NC; rv 01:00 BP 108 / 57; Pulse 88; Resp 22; Temp 100.9(O); Pulse Ox 97% on 2 lpm NC; rv 02:00 BP 136 / 56; Pulse 85; Resp 19; Pulse Ox 99% on 2 lpm NC; rv 02:30 BP 147 / 69; Pulse 88; Resp 21; Temp 99.7(O); Pulse Ox 96% on 2 lpm NC; rv 03:00 BP 129 / 52; Pulse 84; Resp 20; Pulse Ox 99% on 2 lpm NC; rv ED Course: 03/04 21:26 Patient arrived in ED. lp1 21:28 José Wilson NP is PHCP. pm1 21:28 Eliceo Fox MD is Attending Physician. pm1 21:30 Triage completed. lp1 21:30 Arm band placed on. lp1 21:32 Patient has correct armband on for positive identification. Placed in gown. Side rails lp1 up X2. quality assurance monitor chassis on. Pulse ox on. NIBP on. 21:33 Airborne precautions initiated. Patient placed in negative pressure room. Droplet lp1 isolation initiated. 22:22 Chest Single View XRAY In Process Unspecified. EDMS 22:36 Jah Alfredo RN is Primary Nurse. rv 22:39 Missed attempt(s): 20 gauge in left antecubital area. rv 23:14 Missed attempt(s): 20 gauge in right upper arm. Bleeding controlled, band aid applied, sg catheter tip intact. 23:50 Inserted saline lock: 22 gauge in right ,using aseptic technique. shoulder Blood ll1 collected. 04 00:14 Missed attempt(s): 22 gauge in left shoulder. Bleeding controlled, band aid applied, ll1 catheter tip intact. 00:59 Notified Nurse Practitioner and/or Physician Blending Operator of a critical lab result(s), lp1 Lactate 2.2. 01:49 Abdomen In Process Unspecified. EDMS 02:29 Estella Mcdonnell MD is Hospitalizing Provider. pm1 03:36 No provider procedures requiring assistance completed. IV is patent, with fluids rv infusing freely, Patient admitted, IV remains in place. Administered Medications: 03/04 22:15 Drug: Tylenol 1000 mg Route: PO; rv 03/05 01:05 Follow up: Response: No adverse reaction; Temperature is decreased rv 00:00 Drug: NS 0.9% 1000 ml Route: IV; Rate: 1000 ml; Site: right upper arm; rv 01:05 Follow up: IV Status: Completed infusion; IV Intake: 1000ml rv 00:00 Drug: AZITHromycin 500 mg Route: IVPB; Infused Over: 1 hrs; Site: right upper arm; rv 01:04 Follow up: IV Status: Completed infusion; IV Intake: 250ml rv 01:00 Drug: TORadol - Ketorolac 15 mg Route: IVP; Site: right upper arm; rv 03:00 Follow up: Response: No adverse reaction rv 01:04 Drug: LevaQUIN 750 mg Volume: 150 ml; Route: IVPB; Infused Over: 90 mins; Site: right rv upper arm; 03:00 Follow up: IV Status: Completed infusion; IV Intake: 150ml rv 01:42 CANCELLED (Physician Discretion): morphine 4 mg IVP once; RASS on ADMIN: Combtv4, Very pm1 Agttd3, Agttd2, Rstlss1, AlertClm0, Drwsy-1, Lt Sdtn-2, Mod Sdtn-3, Dp Sdtn-4, UnArsble-5 02:30 Drug: Zofran (Ondansetron) 4 mg Route: IVP; Site: right upper arm; rv 03:01 Follow up: Response: No adverse reaction rv 02:30 Drug: morphine 2 mg Route: IVP; Site: right upper arm; rv 03:01 Follow up: Response: No adverse reaction; Marked relief of symptoms; Pain is decreased; rv RASS: Alert and Calm (0) 03:00 Drug: HydroCORTISONE 100 mg Route: IVP; Site: right upper arm; rv Intake: 01:04 IV: 250ml; Total: 250ml. rv 01:05 IV: 1000ml; Total: 1250ml. rv 03:00 IV: 150ml; Total: 1400ml. rv Outcome: 02:29 Decision to Hospitalize by Provider. pm1 03:37 Admitted to Tele accompanied by nurse, via stretcher, room 412, with oxygen, Report rv called to BA PAIGE 03:37 Condition: stable 03:37 Instructed on the need for admit, Demonstrated understanding of instructions. 03:38 Patient left the ED. rv Signatures: Dispatcher [employer] EDMS Avery Guevara RN RN sg Williams, Irene, RN RN iw Lupe Myrick RN RN lp1 José Wilson, OUTSIDE SOLAR SALES CONSULTANT OUTSIDE SOLAR SALES CONSULTANT pm1 Jah Alfredo RN RN rv Epifanio, Lynsay, RN RN ll1 Corrections: (The following items were deleted from the chart) 03/04 21:32 21:27 BP 139 / 77; Pulse 104bpm; Resp 24bpm; Pulse Ox 90% RA; 74.84 kg Reported; lp1 lp1 21:48 21:31 Allergies: Tylenol; lp1 lp1 23:41 23:14 Missed attempt(s): 20 gauge in right upper arm. Bleeding controlled, band aid sg applied, catheter tip intact. sg
--- NOTE | 2020-03-05 02:30 | EDPHYS ---
Physician Documentation [facility] Name: Dulce Cerna Age: 64 yrs Sex: Female : 1955 Arrival Date: 03/04/2020 Time: 21:26 Bed 30 Private MD: ED Physician Eliceo Fox HPI: 03/04 21:56 This 64 yrs old Female presents to ER via EMS with complaints of Fever, pm1 Shortness Of Breath, Cough. 21:56 The patient or guardian reports cough, with no sputum, shortness of breath and fever pm1 that started today. Abdominal pain onset 1 week ago. Severity of symptoms: in the emergency department the symptoms are actually worse. Modifying factors: The symptoms are alleviated by nothing, the symptoms are aggravated by nothing. Associated signs and symptoms: Pertinent positives: fever, sore throat, Pertinent negatives: chest pain, diarrhea, ear ache, rhinorrhea, vomiting. The patient has experienced similar episodes in the past, multiple times, and the symptoms today are exactly the same, to previous pneumonia. 21:56 Patient with O2 saturation in the 80s on EMS arrival. pm1 Historical: - Allergies: 21:31 "pain pills"; lp1 21:31 PENICILLINS; lp1 21:31 Sulfa (Sulfonamide Antibiotics); lp1 - Home Meds: 22:10 Oxycodone HCl Oral [Active]; duloxetine oral oral [Active]; Hydrocortisone Oral lp1 [Active]; aspirin 81 mg Oral TbEC 1 tab once daily [Active]; Crestor oral oral [Active]; Amitriptyline Oral [Active]; Estradiol Oral [Active]; Miralax Oral [Active]; - PMHx: 21:31 addisons; Chronic pain; Irritable bowel syndrome; TIA; lp1 22:10 early dementia; Hyperlipidemia; Depression; lp1 - PSHx: 22:10 Cholecystectomy; Hysterectomy; Appendectomy; lp1 - Immunization history:: Adult Immunizations unknown. - Social history:: Smoking status: Patient denies any tobacco usage or history of. ROS: 21:56 Cardiovascular: Negative for chest pain, palpitations, and edema. pm1 21:56 Back: Negative for injury and pain, : Negative for injury, bleeding, discharge, and swelling, MS/Extremity: Negative for injury and deformity, Skin: Negative for injury, rash, and discoloration, Neuro: Negative for headache, weakness, numbness, tingling, and seizure. 21:56 Constitutional: Positive for fever. 21:56 ENT: Positive for sore throat. 21:56 Respiratory: Positive for cough, shortness of breath, Negative for sputum production. 21:56 Abdomen/GI: Positive for abdominal pain, Negative for nausea, vomiting, and diarrhea, constipation. 21:56 All other systems are negative. Exam: 21:56 Constitutional: This is a well developed, well nourished patient who is awake, alert, pm1 and in no acute distress. Head/Face: Normocephalic, atraumatic. 21:56 Chest/axilla: Normal chest wall appearance and motion. Nontender with no deformity. No lesions are appreciated. Cardiovascular: Regular rate and rhythm with a normal S1 and S2. No gallops, murmurs, or rubs. Normal PMI, no JVD. No pulse deficits. 21:56 Back: No spinal tenderness. No costovertebral tenderness. Full range of motion. Skin: Warm, dry with normal turgor. Normal color with no rashes, no lesions, and no evidence of cellulitis. MS/ Extremity: Pulses equal, no cyanosis. Neurovascular intact. Full, normal range of motion. 21:56 ENT: External ear(s): are unremarkable, Ear canal(s): are normal, TM's: are normal. 21:56 Respiratory: the patient does not display signs of respiratory distress, Respirations: tachypnea, that is mild. 21:56 Abdomen/GI: Inspection: obese Palpation: abdomen is soft and non-tender, in all quadrants, mass, is not appreciated, rebound tenderness, is not appreciated. 21:56 Neuro: Exam negative for acute changes, Orientation: is normal, Mentation: is normal, Motor: moves all fours. Vital Signs: 21:20 BP 139 / 77; Pulse 102; Resp 21; Pulse Ox 87% on R/A; rv 21:27 BP 139 / 77; Pulse 104; Resp 24; Temp 103.2(O); Pulse Ox 90% on R/A; Weight 74.84 kg lp1 (R); 21:30 BP 137 / 84; Pulse 100; Resp 21; Pulse Ox 90% on 2 lpm NC; rv 22:30 BP 120 / 109; Pulse 96; Resp 21; Pulse Ox 91% on 2 lpm NC; rv 03/05 00:00 BP 95 / 52; Pulse 90; Resp 19; Pulse Ox 96% on 2 lpm NC; rv 00:30 BP 102 / 81; Pulse 89; Resp 20; Pulse Ox 97% on 2 lpm NC; rv 01:00 BP 108 / 57; Pulse 88; Resp 22; Temp 100.9(O); Pulse Ox 97% on 2 lpm NC; rv 02:00 BP 136 / 56; Pulse 85; Resp 19; Pulse Ox 99% on 2 lpm NC; rv 02:30 BP 147 / 69; Pulse 88; Resp 21; Temp 99.7(O); Pulse Ox 96% on 2 lpm NC; rv 03:00 BP 129 / 52; Pulse 84; Resp 20; Pulse Ox 99% on 2 lpm NC; rv MDM: 03/04 21:28 Patient medically screened. pm1 22:37 ED course: Patient reports respiratory problems with PCN. Will give macrolide for strep pm1 pharyngitis. 03/05 00:01 Data reviewed: vital signs. Data interpreted: Pulse oximetry: on 2L(s) per nasal pm1 canula, is 90 %. 00:06 Counseling: I had a detailed discussion with the patient and/or guardian regarding: the pm1 historical points, exam findings, and any diagnostic results supporting the discharge/admit diagnosis, lab results, radiology results, the need for further work-up and treatment in the hospital. 02:28 Physician consultation: Estella Mcdonnell MD was contacted at 02:28, regarding admission, pm1 patient's condition, and will see patient in ED. 03/04 21:46 Order name: Amylase, Serum; Complete Time: 00:46 pm1 03/04 21:46 Order name: Basic Metabolic Panel; Complete Time: 00:46 pm1 03/04 21:46 Order name: Blood Culture Adult (2) pm1 03/04 21:46 Order name: CBC with Diff; Complete Time: 00:27 pm1 03/04 21:46 Order name: Ckmb; Complete Time: 00:46 pm1 03/04 21:46 Order name: CPK; Complete Time: 00:46 pm1 03/04 21:46 Order name: Lactate; Complete Time: 01:04 pm1 03/04 21:46 Order name: LFT's; Complete Time: 00:46 pm03/04 21:46 Order name: Lipase; Complete Time: 00:46 pm03/04 21:46 Order name: Procalcitonin; Complete Time: 00:46 pm03/04 21:46 Order name: Protime (+inr); Complete Time: 00:46 pm03/04 21:46 Order name: Troponin (emerg Dept Use Only); Complete Time: 00:46 pm03/04 21:46 Order name: Urine Microscopic Only 03/04 21:46 Order name: Strep; Complete Time: 22:33 pm03/04 21:46 Order name: Flu; Complete Time: 22:33 pm03/04 21:46 Order name: COVID-19 pm03/04 21:47 Order name: UDS pm03/05 03:22 Order name: CBC with Automated Diff EDMS 03/05 03:22 Order name: CBC with Automated Diff EDMS 03/05 03:22 Order name: Comprehensive Metabolic Panel EDMS 03/05 03:22 Order name: Comprehensive Metabolic Panel EDMS 03/05 03:22 Order name: Lactate EDMS 03/05 03:22 Order name: Lactate EDMS 03/05 03:22 Order name: Lipid Profile EDMS 03/05 03:22 Order name: Lipid Profile EDMS 03/05 03:22 Order name: Magnesium EDMS 03/05 03:22 Order name: Magnesium EDMS 03/05 03:22 Order name: NT PRO-BNP EDMS 03/05 03:22 Order name: NT PRO-BNP EDMS 03/04 21:46 Order name: Chest Single View XRAY; Complete Time: 23:07 pm03/04 21:46 Order name: Accucheck; Complete Time: 22:40 pm03/04 21:46 Order name: Cardiac monitoring; Complete Time: 22:13 pm03/04 21:46 Order name: EKG - Nurse/Tech; Complete Time: 22:13 pm03/04 21:46 Order name: IV Saline Lock - Large Bore; Complete Time: 00:19 pm03/04 21:46 Order name: Labs collected and sent; Complete Time: 00:19 pm03/04 21:46 Order name: O2 Per Protocol; Complete Time: 22:13 pm1 03/04 21:46 Order name: O2 Sat Monitoring; Complete Time: 22:13 pm1 03/05 00:38 Order name: Abdomen EDMS 03/05 03:22 Order name: Regular EDMS 03/05 03:22 Order name: Phosphorus EDMS 03/05 03:22 Order name: Phosphorus EDMS Administered Medications: 03/04 22:15 Drug: Tylenol 1000 mg Route: PO; rv 03/05 01:05 Follow up: Response: No adverse reaction; Temperature is decreased rv 00:00 Drug: NS 0.9% 1000 ml Route: IV; Rate: 1000 ml; Site: right upper arm; rv 01:05 Follow up: IV Status: Completed infusion; IV Intake: 1000ml rv 00:00 Drug: AZITHromycin 500 mg Route: IVPB; Infused Over: 1 hrs; Site: right upper arm; rv 01:04 Follow up: IV Status: Completed infusion; IV Intake: 250ml rv 01:00 Drug: TORadol - Ketorolac 15 mg Route: IVP; Site: right upper arm; rv 03:00 Follow up: Response: No adverse reaction rv 01:04 Drug: LevaQUIN 750 mg Volume: 150 ml; Route: IVPB; Infused Over: 90 mins; Site: right rv upper arm; 03:00 Follow up: IV Status: Completed infusion; IV Intake: 150ml rv 01:42 CANCELLED (Physician Discretion): morphine 4 mg IVP once; RASS on ADMIN: Combtv4, Very pm1 Agttd3, Agttd2, Rstlss1, AlertClm0, Drwsy-1, Lt Sdtn-2, Mod Sdtn-3, Dp Sdtn-4, UnArsble-5 02:30 Drug: Zofran (Ondansetron) 4 mg Route: IVP; Site: right upper arm; rv 03:01 Follow up: Response: No adverse reaction rv 02:30 Drug: morphine 2 mg Route: IVP; Site: right upper arm; rv 03:01 Follow up: Response: No adverse reaction; Marked relief of symptoms; Pain is decreased; rv RASS: Alert and Calm (0) 03:00 Drug: HydroCORTISONE 100 mg Route: IVP; Site: right upper arm; rv Disposition: 03:45 Co-signature as Attending Physician, Eliceo Fox MD. pkl Disposition: 04/13/20 02:29 Hospitalization ordered by Estella Mcdonnell for Inpatient Admission. Preliminary diagnosis are Pneumonia, unspecified organism, Streptococcal pharyngitis. - Bed requested for Telemetry/MedSurg (Inpatient). - Status is Inpatient Admission. rv - Condition is Stable. - Problem is new. - Symptoms have improved. Signatures: Dispatcher [employer] EDRI Eliceo Fox MD MD pkl Lupe Myrick, RN RN lp1 José Wilson, GPS NAVIGATION INSTALLER GPS NAVIGATION INSTALLER pm1 Jah Alfredo, RN RN rv Corrections: (The following items were deleted from the chart) 04 21:48 21:31 Allergies: Tylenol; lp1 lp1 22:13 21:47 Urine Test ordered. pm1 lp 03/05 00:33 04 21:47 PTT, ACTIVATED+COAG.LAB.[facility]. [facility] 00:38 03/04 21:47 Abdomen Pelvis W Con+CT.RAD.BRZ ordered. [facility] 03/05 01:42 01:42 morphine 4 mg IVP once; RASS on ADMIN: Combtv4, Very Agttd3, Agttd2, Rstlss1, pm1 AlertClm0, Drwsy-1, Lt Sdtn-2, Mod Sdtn-3, Dp Sdtn-4, UnArsble-5 ordered. pm1 03:09 02:29 Hospitalization Ordered by Estella Mcdonnell MD for Inpatient Admission. Preliminary rv diagnosis is Pneumonia, unspecified organism; Streptococcal pharyngitis. Bed requested for Telemetry/MedSurg (Inpatient). Status is Inpatient Admission. Condition is Stable. Problem is new. Symptoms have improved. pm1 03:38 03:09 03/05/2020 02:29 Hospitalization Ordered by Estella Mcdonnell MD for Inpatient rv Admission. Preliminary diagnosis is Pneumonia, unspecified organism; Streptococcal pharyngitis. Bed requested for Telemetry/MedSurg (Inpatient). Status is Inpatient Admission. Condition is Stable. Problem is new. Symptoms have improved. rv
[2020-03-05] MEDS ORDERED: HYDROCORTISONE SUC 100 MG INJ ONE (02:56)
[2020-03-05] MEDS ORDERED: ALBUTEROL INHALER 60 PUFF/8 GM IH PRN (03:21)
[2020-03-05 04:46] VITALS: BMI 29.9
[2020-03-05] MEDS: clonazePAM 1 MG TAB PO PRN ×2 (05:42→20:11)
[2020-03-05] MEDS: NA CHLORIDE 0.9% 1,000 ML IV SCH ×2 (05:53→12:38)
[2020-03-05 06:11] LABS: Barbiturates NEGATIVE (NEGATIVE); Benzodiazepines NEGATIVE (NEGATIVE); Cocaine NEGATIVE (NEGATIVE); METHAMPHETAM NEGATIVE (NEGATIVE); Methadone NEGATIVE (NEGATIVE); Opiates NEGATIVE (NEGATIVE); Phencyclidine NEGATIVE (NEGATIVE); THC Cannibis NEGATIVE (NEGATIVE)
[2020-03-05 06:50] LABS: Urine Appearance CLEAR; Urine Bilirubin NEGATIVE (NEG); Urine Blood NEGATIVE (NEG); Urine Color YELLOW; Urine Glucose NEGATIVE (NEG); Urine Protein NEGATIVE (NEG); Urine Urobilinogen 0.2 mg/dL (0.2-1.0)
[2020-03-05 06:54] LABS: Urine Microscopic Reflex NO UMIC
--- NOTE | 2020-03-05 07:01 | P.HP ---
Certification for Inpatient Patient admitted to: Inpatient With expected LOS: >2 Midnights Patient will require the following post-hospital care: None Practitioner: I am a practitioner with admitting privileges, knowledge of patient current condition, hospital course, and medical plan of care. Services: Services provided to patient in accordance with Admission requirements found in Title 42 Section 412.3 of the Code of Federal Regulations Patient History Date of Service: 03/05/20 Reason for admission: pneumonia History of Present Illness: Patient is a 64-year-old female who came to the hospital with fever and congestion. She had a temperature of a 103 in the emergency room. She has been little short of breath and not feeling like herself so she finally decided to come into the hospital further evaluation. In the emergency room she had extensive workup performed on her which revealed that she had a pneumonia in the lower bases. She also had a leukocytosis. Patient also was hypoxic with O2 sats in the 80's on RA. Patient had a test swab performed as well for influenza the and strep. The patient has strep screen was positive. Patient was started on antibiotics to cover the pneumonia as well as a strep. At this time patient denies any sick contacts. Will admit patient to the hospital for further evaluation. Allergies Penicillins Allergy (Verified 03/16/19 23:40) Shortness of breath Sulfa (Sulfonamide Antibiotics) [Sulfa(Sulfonamide Antibiotics)] Allergy (Verified 03/16/19 23:40) Shortness of breath NSAIDS Adverse Reaction (Uncoded 03/16/19 23:40) Kidney Problems Home Medications: Amitriptyline [Elavil*] 200 mg PO BEDTIME 03/17/19 Estradiol [Estrace] 2 mg PO BEDTIME 03/17/19 Fludrocortisone [Florinef *] 0.1 mg PO DAILY 03/17/19 Hydrocortisone [Cortef*] 20 mg PO DAILY 03/17/19 Omeprazole [Prilosec] 40 mg PO DAILY 03/17/19 Promethazine HCl 25 mg PO BIDP PRN 03/17/19 Rosuvastatin [Crestor*] 10 mg PO BEDTIME 03/17/19 Zaleplon 10 mg PO BEDTIME 03/17/19 clonazePAM [Clonazepam] 1 mg PO BIDP PRN 03/17/19 Oxycodone HCl [Oxyir] 10 mg PO TID PRN 03/20/19 Duloxetine HCl [Cymbalta] 90 mg PO DAILY 05/09/19 Hydrocortisone [Cortef*] 10 mg PO DAILY 05/09/19 - Past Medical/Surgical History Has patient received pneumonia vaccine in the past: Yes 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 Rheumatoid Arthritis - Social History Smoking Status: Former smoker Alcohol use: No CD- Drugs: No Caffeine use: Yes Place of Residence: Home Review of Systems 10-point ROS is otherwise unremarkable Physical Examination - Vital Signs Temperature: 103 F Blood Pressure: 156/68 Pulse: 85 Respirations: 21 Pulse Ox (%): 98 - Physical Exam General: Alert, In no apparent distress, Oriented x3 HEENT: Atraumatic, PERRLA, Mucous membr. moist/pink, EOMI, Sclerae nonicteric Neck: Supple, 2+ carotid pulse no bruit, No LAD, Without JVD or thyroid abnormality Respiratory: Diminished, Rhonchi/gurgles Cardiovascular: Regular rate/rhythm, Normal S1 S2, No murmurs Gastrointestinal: Normal bowel sounds, Soft and benign, Non-distended, No tenderness Musculoskeletal: No clubbing, No swelling, No tenderness Integumentary: No rashes Neurological: Normal gait, Normal speech, Normal strength at 5/5 x4 extr, Normal tone, Sensation intact, Cranial nerves 3-12 intact, Normal affect Lymphatics: No axilla or inguinal lymphadenopathy - Studies Laboratory Data (last 24 hrs) 03/04/20 23:50: PT 11.2, INR 0.95, APTT Cancelled 03/04/20 23:50: WBC 12.6 H, Hgb 10.8 L, Hct 33.8 L, Plt Count 206 03/04/20 23:50: Sodium 141, Potassium 3.5, BUN 17, Creatinine 1.07, Glucose 67 L, Total Bilirubin 0.3, AST 46 H, ALT 31, Alkaline Phosphatase 89, Amylase 29, Lipase 44 L Microbiology Data (last 24 hrs): 03/04/20 05:25 Blood - Blood Anaerobic Blood Culture - Final 03/04/20 21:45 Nasopharnyx Influenza Type A Antigen Screen - Final 03/04/20 21:45 Nasopharnyx Influenza Type B Antigen Screen - Final 03/04/20 21:45 Throat Group A Streptococcus Rapid Screen - Final Assessment & Plan - Problems (Diagnosis) (1) Fever Onset Date: 11/01/18 Current Visit: No Status: Acute (2) Generalized weakness Current Visit: No Status: Acute (3) LLL pneumonia Onset Date: 09/08/16 Current Visit: No Status: Acute Qualifiers: (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 (5) Depression with anxiety Current Visit: No Status: Chronic (6) GERD (gastroesophageal reflux disease) Current Visit: No Status: Chronic Qualifiers: Esophagitis presence: without esophagitis Qualified Code(s): K21.9 - Gastro-esophageal reflux disease without esophagitis (7) Hyperlipidemia Onset Date: 11/01/18 Current Visit: No Status: Chronic Qualifiers: Hyperlipidemia type: mixed hyperlipidemia Qualified Code(s): E78.2 - Mixed hyperlipidemia (8) Irritable bowel disease Onset Date: 04/08/18 Current Visit: No Status: Chronic Qualifiers: Irritable bowel syndrome type: unspecified (9) Hypoxemia Current Visit: Yes Status: Acute - Plan Plan: 1. Continue with IV antibiotics 2. Awaiting sputum and blood culture; procalcitonin level; COVID-19 testing 3. Repeat chest x-ray in AM 4. Respiratory isolation 5. Continue with MDI as needed 6. O2 per protocol 7. Continue with gentle hydration 8. Repeat labs including CBC and renal function in a.m. 9. Outpt follow-up with Pulmonary 10. GI and DVT prophylaxis Discharge Plan: Home Plan to discharge in: Greater than 2 days - Advance Directives Does patient have a Living Will: Yes Does patient have a Durable POA for Healthcare: No - Code Status/Comfort Care Code Status Assessed: Yes Code Status: Full Code Critical Care: No Time Spent Managing PTS Care (In Minutes): 45
[2020-03-05] MEDS: CEFTRIAXONE/SWI 1gm 1 GM/10 ML SYR IV SCH ×2 (07:24→20:12)
[2020-03-05] MEDS: ENOXAPARIN 40 MG/0.4 ML SQ SCH (07:24)
[2020-03-05] MEDS: HYDROCORTISONE SUC 100 MG INJ IV SCH ×2 (07:25→20:12)
[2020-03-05] MEDS: DULOXETINE 30 MG CAP PO SCH (07:25)
[2020-03-05] MEDS: OXYCODONE HCL 5 MG TAB PO PRN ×2 (07:59→16:05)
--- NOTE | 2020-03-05 10:11 | RAD REPORT ---
EXAM DESCRIPTION: RAD - Chest Single View - 03/05/2020 6:53 am CLINICAL HISTORY: The patient is 64 years old and is Female; S/P PICC Insertion TECHNIQUE: Frontal view of the chest. COMPARISON: No relevant prior studies available. FINDINGS: LUNGS: Patchy opacity within the left lower lobe and lingula is present. The right lung is tess ar. PLEURAL SPACE: Unremarkable. No pneumothorax. HEART: Unremarkable. No cardiomegaly. MEDIASTINUM: Unremarkable. BONES/JOINTS: Unremarkable. TUBES, LINES AND DEVICES: A right upper extremity PICC is present with the tip in the SVC. IMPRESSION: 1. A right upper extremity PICC is present with the tip in the SVC. 2. Left-sided pneumonia. Electronically signed by: Katherine Leyva MD 03/05/2020 6:29 AM CDT Due to temporary technical issues with the PACS/Fluency reporting system, reports are being signed by the in house radiologist as a courtesy to ensure prompt reporting. The interpreting radiologist is f ully responsible for the content of the report.
--- NOTE | 2020-03-05 10:21 | RAD REPORT ---
EXAM DESCRIPTION: CT - Abdomen Pelvis Wo Contrast - 03/05/2020 1:48 am CLINICAL HISTORY: ABD PAIN TECHNIQUE: Contiguous axial images obtained through the abdomen and pelvis without IV contrast. Pilo nal and sagittal reformatted images were provided. This exam was performed according to our departmental dose-optimization program, which includes autom ated exposure control, adjustment of the mA and/or kV according to patient size and/or use of iterati ve reconstruction technique. COMPARISON: 08/02/2019 FINDINGS: Lung bases: Lingular and left lower lobe and to a lesser extent right lower lobe reticular nodular and patchy opacification. Liver: The liver is enlarged. Gallbladder and biliary system: Prior cholecystectomy. Pneumobilia again demonstrated. Pancreas: Moderate pancreatic parenchymal atrophy again demonstrated. Spleen: Grossly unremarkable Adrenals: Unremarkable Kidneys: 2.1 cm staghorn calculus again demonstrated on the right. Punctate left renal calculus. Subc entimeter exophytic hypodensity which is too small to characterize. No hydronephrosis. Bowel: Copious stool throughout the majority of the large bowel. No obstruction. Appendix: There has been an appendectomy. Urinary bladder: The urinary bladder is distended. Reproductive: There has been a hysterectomy. No adnexal cysts or masses are identified. Lymph nodes: No pathologically enlarged lymph nodes. Peritoneum: No focal fluid collection. No free air. Vessels: Mild to moderate atherosclerotic disease. No abdominal aortic aneurysm. Abdominal wall: Small fat-containing umbilical hernia. Bones: Mild multilevel spondylosis. No acute fracture. IMPRESSION: 1. Copious stool. No obstruction. 2. Lingular and left lower lobe and to a lesser extent right lower lobe infiltrates. 3. Other findings as above. Electronically signed by: Sunil Manuel MD 03/05/2020 2:02 AM CDT Due to temporary technical issues with the PACS/Fluency reporting system, reports are being signed by the in house radiologist as a courtesy to ensure prompt reporting. The interpreting radiologist is f ully responsible for the content of the report.
[2020-03-05 10:46] LABS: Absolute Lymphocytes (CBC) 0.5 K/uL (0.7-4.9); Basophils % 0.2 % (0-1.3); Hematocrit 32.4 % (36.0-45.0); Lymphocytes % 3.2 % (15.3-44.8); MPV 9.1 fL (7.6-11.3); RBC Red Blood Cell Count 3.79 M/uL (3.86-4.86)
[2020-03-05 10:56] LABS: Magnesium 1.6 mg/dL (1.8-2.4); Potassium 3.3 mmol/L (3.5-5.1)
[2020-03-05 11:03] LABS: Blood Morphology Comment NOT SEEN (NOT SEEN); Platelet Estimate ADEQ; Platelets, Giant FEW
[2020-03-05] MEDS ORDERED: POTASSIUM CL SA 10 MEQ TAB PO ONE (11:26)
[2020-03-05] MEDS ORDERED: MAGNESIUM SULFATE 1 gm IVPB 1 GM/100 ML BAG IV ONE (11:27)
[2020-03-05] MEDS: AMITRIPTYLINE 50 MG TAB PO SCH (20:11)
[2020-03-05] MEDS: GUAIFENESIN 600 MG SA TAB PO SCH (20:11)
[2020-03-05] MEDS: AZITHROMYCIN IV 500 MG in NA CHLORIDE 0.9% 250 ML IVPB SCH (20:12)
[2020-03-05] MEDS: ONDANSETRON 4 MG/2 ML VIAL IV PRN (21:58)
[2020-03-06] MEDS: NA CHLORIDE 0.9% 1,000 ML IV SCH ×3 (00:19→18:15)
[2020-03-06] MEDS: CEPACOL LOZENGES PO PRN ×3 (00:20→20:34)
[2020-03-06 04:28] LABS: Absolute Lymphocytes (CBC) 0.9 K/uL (0.7-4.9); Basophils % 0.2 % (0-1.3); Lymphocytes % 6.9 % (15.3-44.8); MPV 9.1 fL (7.6-11.3); RBC Red Blood Cell Count 2.97 M/uL (3.86-4.86)
[2020-03-06 04:32] LABS: ALT/SGPT 23 U/L (12-78); AST/SGOT 22 U/L (15-37); Albumin 2.1 g/dL (3.4-5.0); Alkaline Phosphatase 77 U/L (45-117); BUN Blood Urea Nitrogen 9 mg/dL (7-18); Bicarbonate 28 mmol/L (21-32); Bilirubin Total 0.2 mg/dL (0.2-1.0); Glucose Level 95 mg/dL (74-106); HDL Cholesterol 83 mg/dL (40-60); LDL Cholesterol, Calculated 36 (<130); Magnesium 1.8 mg/dL (1.8-2.4); NT PRO-BNP 1049 pg/mL (<125); Phosphorus 1.9 mg/dL (2.5-4.9); Potassium 3.2 mmol/L (3.5-5.1); Protein, Total 5.4 g/dL (6.4-8.2); Sodium Level 145 mmol/L (136-145)
[2020-03-06] MEDS ORDERED: MAGNESIUM SULFATE 1 gm IVPB 1 GM/100 ML BAG IV ONE (05:08)
[2020-03-06] MEDS ORDERED: POTASSIUM PHOS IN 0.9 % NACL 15 MMOL/250 ML BAG IV ONE (05:09)
[2020-03-06] MEDS: ONDANSETRON 4 MG/2 ML VIAL IV PRN (05:50)
[2020-03-06] MEDS: OXYCODONE HCL 5 MG TAB PO PRN ×2 (05:50→18:00)
[2020-03-06] MEDS: CEFTRIAXONE/SWI 1gm 1 GM/10 ML SYR IV SCH ×2 (08:26→20:36)
[2020-03-06] MEDS: DULOXETINE 30 MG CAP PO SCH (08:26)
[2020-03-06] MEDS: ENOXAPARIN 40 MG/0.4 ML SQ SCH (08:26)
[2020-03-06] MEDS: HYDROCORTISONE SUC 100 MG INJ IV SCH (08:26)
[2020-03-06] MEDS: GUAIFENESIN 600 MG SA TAB PO SCH ×2 (08:27→20:35)
[2020-03-06] MEDS: clonazePAM 1 MG TAB PO PRN ×2 (09:59→20:35)
[2020-03-06] MEDS ORDERED: POTASSIUM CL SA 10 MEQ TAB PO ONE (16:00)
[2020-03-06] MEDS ORDERED: POLYETHYL GLY 3350 17 GM/DOSE PO PRN (16:28)
[2020-03-06] MEDS: ACETAMINOPHEN 500 MG TAB PO PRN (16:32)
[2020-03-06] MEDS: AZITHROMYCIN IV 500 MG in NA CHLORIDE 0.9% 250 ML IVPB SCH (20:35)
[2020-03-06] MEDS: AMITRIPTYLINE 50 MG TAB PO SCH (20:35)
[2020-03-06] MEDS: ENSURE HIGH PROTEIN 237 ML CAN PO SCH (20:39)
--- NOTE | 2020-03-06 21:54 | PN ---
Date of Progress Note: 03/06/2020 Subjective: Patient states that she is feeling better than yesterday. Case discussed with RN. All questions answered. Patient encounter was done via secured interactive real-time audio and video based on the current COVID-19 outbreak, current CDC state, local, and [facility] guidance for social distancing and self isolation of at-risk persons have identified the need for tele health service for Dulce Cerna, date of 1955, . [facility] has offered the patient tele health medicine services. The risks, benefits, and alternatives to the virtually video visit were explained to the patient and the patient consented to this modality of care. Visit was carried out on a secured line and all parties in the room were identified and approved by the patient prior to the consult. No technical issues were experienced. Level of care equivalent in-person care was achieved. The patient's location is [place], [place]. Provider location is also [place], [place]. Visit type is secured interactive real-time video. Medications: List reviewed. Physical Examination:Direct physical exam was deferred due to concern for COVID to minimize exposure and spread of the virus and preserve PPE. General: Patient does not appear to be in any acute distress. No respiratory distress. Mildly ill-appearing. Respiratory: Patient does not seem to be in any distress. There is no visible use of accessory muscles. Extremities: Patient is able to move all 4 extremities. Neurologic: Speech is normal. Psych: Cooperative normal affect. Laboratory Data: Sodium 145, potassium 3.2, chloride 110, CO2 of 28, BUN 9, creatinine 0.52, glucose 95, lactate 0.6, calcium 7.1, phosphorus 1.9, magnesium 1.8, AST 22, ALT 23, BNP 1049, albumin 2.1, repeat potassium is 3.6. WBC 12.7, H and H 8.5 and 26, platelets 145, neutrophils 89%, lymphocytes 0.9. Group A strep screen is positive. Blood cultures, no growth to date. Chest x-ray shows right upper extremity PICC line present with tip in the SVC, left-sided pneumonia, personally reviewed. Assessment: 1. Fever, likely secondary to streptococcus pneumoniae. 2. Left lower lobe pneumonia. White count is trending down. Continue with IV antibiotics. 3. Streptococcus pharyngitis infection. We will continue antibiotics. 4. Generalized weakness, improving. 5. Bruce disease. We will switch back to patient's p.o. dose of hydrocortisone and switch from IV in a.m. 6. Person under investigation for COVID-19. Patient does have fever, pneumonia, generalized weakness, may be related to coronavirus disease 2018. Testing is still currently pending. 7. Gastroesophageal reflux disease without esophagitis. We will continue PPI. 8. Mixed hyperlipidemia. We will hold statin due to possible coronavirus disease. 9. Hypoxemia. The supplemental oxygen. Likely secondary to pneumonia 10. Irritable bowel disease. 11. Depression with anxiety, stable. Continue SSRI Plan: We will continue with deep venous thrombosis prophylaxis. Repeat labs in a.m. Monitor electrolytes and replace as needed. Continue weaning off O2, currently on 1 L. Continue inhalers and respiratory isolation. Likely discharge home in a.m. if continues to improve and weaned off O2. Patient seen virtually. The above assessment and plan is based on chart review history of present illness and physical exam findings virtually during this encounter. Every effort has been made to make this encounter comprehensive to the best of our abilities ABBEY Voice ID: [id number] Report ID: [id number] JOHN
[2020-03-07 05:16] LABS: BUN Blood Urea Nitrogen 8 mg/dL (7-18); Bicarbonate 31 mmol/L (21-32); Glucose Level 87 mg/dL (74-106); Magnesium 2.2 mg/dL (1.8-2.4); Phosphorus 1.2 mg/dL (2.5-4.9); Potassium 3.8 mmol/L (3.5-5.1); Sodium Level 144 mmol/L (136-145)
[2020-03-07] MEDS: OXYCODONE HCL 5 MG TAB PO PRN ×2 (05:18→21:32)
[2020-03-07] MEDS: CEPACOL LOZENGES PO PRN ×2 (05:21→12:16)
[2020-03-07] MEDS: NA CHLORIDE 0.9% 1,000 ML IV SCH (05:22)
[2020-03-07] MEDS ORDERED: HOME MED 1 EA UNK (Omeprazole [Prilosec] 40 MG) PO SCH (09:00)
[2020-03-07] MEDS ORDERED: POTASSIUM PHOS IN 0.9 % NACL 15 MMOL/250 ML BAG IV ONE (09:00)
[2020-03-07] MEDS: ENSURE HIGH PROTEIN 237 ML CAN PO SCH ×2 (09:00→21:35)
[2020-03-07] MEDS: ENOXAPARIN 40 MG/0.4 ML SQ SCH (09:27)
[2020-03-07] MEDS: FLUDROCORTISONE 0.1 MG TAB PO SCH (09:28)
[2020-03-07] MEDS: ASPIRIN 81 MG CHEWABLE TABLET PO SCH (09:28)
[2020-03-07] MEDS: PANTOPRAZOLE 40MG TABLET PO SCH (09:28)
[2020-03-07] MEDS: HYDROCORTISONE 10 MG TAB PO SCH ×2 (09:28→12:13)
[2020-03-07] MEDS: DULOXETINE 30 MG CAP PO SCH (09:28)
[2020-03-07] MEDS: GUAIFENESIN 600 MG SA TAB PO SCH ×2 (09:28→21:32)
[2020-03-07] MEDS: CEFTRIAXONE/SWI 1gm 1 GM/10 ML SYR IV SCH (09:29)
[2020-03-07] MEDS: clonazePAM 1 MG TAB PO PRN (09:32)
[2020-03-07] MEDS: ONDANSETRON 4 MG/2 ML VIAL IV PRN (10:20)
[2020-03-07] MEDS: ACETAMINOPHEN 500 MG TAB PO PRN (13:18)
[2020-03-07] MEDS: ALBUTEROL 2.5 MG/3 ML NEB SOL NEB PRN (13:46)
--- NOTE | 2020-03-07 16:09 | P.PN ---
Subjective Date of Service: 03/07/20 Chief Complaint: pneumonia Subjective: Improving Still reports some shortness of breath Review of Systems 10-point ROS is otherwise unremarkable Respiratory: As per HPI Physical Examination - Vital Signs Temperature: 99.1 F Blood Pressure: 143/65 Pulse: 86 Respirations: 20 Pulse Ox (%): 96 - Physical Exam General: Alert, Oriented x3, Mild distress, Obese, Other (Ill-appearing female) HEENT: Atraumatic, PERRLA, EOMI Neck: Supple, JVD not distended Respiratory: Diminished, Other (Left base. No wheezing or stridor no use of accessory muscles) Cardiovascular: No edema, Normal pulses, Regular rate/rhythm, Normal S1 S2 Gastrointestinal: Normal bowel sounds, Soft and benign, Non-distended, No tenderness Musculoskeletal: No tenderness Integumentary: No rashes, No erythema Neurological: Normal speech, Normal strength at 5/5 x4 extr, Normal tone, Normal affect - Studies Laboratory Last Values WBC 12.6 K/uL (4.3-10.9) H 03/04/20 23:50 RBC 3.95 M/uL (3.86-4.86) 03/04/20 23:50 Hgb 10.8 g/dL (12.0-15.0) L 03/04/20 23:50 Hct 33.8 % (36.0-45.0) L 03/04/20 23:50 MCV 85.6 fL (80-100) D 03/04/20 23:50 MCH 27.5 pg (27.0-35.0) 03/04/20 23:50 MCHC 32.1 g/dL (32.0-36.0) 03/04/20 23:50 RDW 17.4 % (12.1-15.2) H 03/04/20 23:50 Plt Count 206 K/uL (152-406) 03/04/20 23:50 MPV 9.4 fL (7.6-11.3) 03/04/20 23:50 Neutrophils % 84.9 % (41.7-73.7) H 03/04/20 23:50 Lymphocytes % 10.3 % (15.3-44.8) L 03/04/20 23:50 Monocytes % 4.4 % (3.3-12.3) 03/04/20 23:50 Eosinophils % 0.2 % (0-4.4) 03/04/20 23:50 Basophils % 0.2 % (0-1.3) 03/04/20 23:50 Absolute Neutrophils 10.7 K/uL (1.8-8.0) H 03/04/20 23:50 Absolute Lymphocytes 1.3 K/uL (0.7-4.9) 03/04/20 23:50 Absolute Monocytes 0.6 K/uL (0.1-1.3) 03/04/20 23:50 Absolute Eosinophils 0.0 K/uL (0-0.5) 03/04/20 23:50 Absolute Basophils 0.0 K/uL (0-0.5) 03/04/20 23:50 PT 11.2 SECONDS (9.5-12.5) 03/04/20 23:50 INR 0.95 03/04/20 23:50 APTT Cancelled 03/04/20 23:50 Sodium 141 mmol/L (136-145) 03/04/20 23:50 Potassium 3.5 mmol/L (3.5-5.1) 03/04/20 23:50 Chloride 100 mmol/L (98-107) 03/04/20 23:50 Carbon Dioxide 31 mmol/L (21-32) 03/04/20 23:50 BUN 17 mg/dL (7-18) 03/04/20 23:50 Creatinine 1.07 mg/dL (0.55-1.3) 03/04/20 23:50 Estimated GFR 52 mL/min (=/>90) L 03/04/20 23:50 Glucose 67 mg/dL (74-106) L 03/04/20 23:50 POC Glucose 103 mg/dl (65-120) 03/04/20 22:29 Lactic Acid 1.2 mmol/L (0.4-2.0) 03/05/20 04:20 Calcium 8.7 mg/dL (8.5-10.1) 03/04/20 23:50 Total Bilirubin 0.3 mg/dL (0.2-1.0) 03/04/20 23:50 Direct Bilirubin 0.2 mg/dL (0-0.2) 03/04/20 23:50 AST 46 U/L (15-37) H 03/04/20 23:50 ALT 31 U/L (12-78) 03/04/20 23:50 Alkaline Phosphatase 89 U/L (45-117) 03/04/20 23:50 Creatine Kinase 579 U/L (26-192) H 03/04/20 23:50 CK-MB (CK-2) 1.7 ng/mL (0.3-3.6) 03/04/20 23:50 Rapid Troponin I < 0.02 ng/mL (0.0-0.045) 03/04/20 23:50 Serum Total Protein 6.7 g/dL (6.4-8.2) 03/04/20 23:50 Albumin 3.0 g/dL (3.4-5.0) L 03/04/20 23:50 Globulin 3.7 g/dL (2.3-3.5) H 03/04/20 23:50 Albumin/Globulin Ratio 0.8 (1.1-1.8) L 03/04/20 23:50 Amylase 29 U/L (25-115) 03/04/20 23:50 Lipase 44 U/L (73-393) L 03/04/20 23:50 Procalcitonin 1.72 ng/mL (<0.50) H 03/04/20 23:50 Urine Color Yellow 03/05/20 05:30 Urine Appearance Clear 03/05/20 05:30 Urine pH 7.0 (5.0-7.0) 03/05/20 05:30 Ur Specific [place] 1.010 (1.005-1.030) 03/05/20 05:30 Glucose (UA)(Auto) Negative (NEG) 03/05/20 05:30 Urine Ketones Negative (NEG) 03/05/20 05:30 Urine Blood Negative (NEG) 03/05/20 05:30 Urine Nitrite Negative (NEG) 03/05/20 05:30 Urine Bilirubin Negative (NEG) 03/05/20 05:30 Urine Urobilinogen 0.2 mg/dL (0.2-1.0) 03/05/20 05:30 Ur Leukocyte Esterase Negative (NEG) 03/05/20 05:30 Urine RBC Cancelled 03/05/20 05:30 Urine WBC Cancelled 03/05/20 05:30 Ur Squamous Epith Cells Cancelled 03/05/20 05:30 Ur Urothelial Cells Cancelled 03/05/20 05:30 Calcium Oxalate Crystal Cancelled 03/05/20 05:30 Uric Acid Crystals Cancelled 03/05/20 05:30 Triple Phos Crystals Cancelled 03/05/20 05:30 Other Crystals Cancelled 03/05/20 05:30 Amorphous Sediment Cancelled 03/05/20 05:30 Glitter Cells Cancelled 03/05/20 05:30 Urine Bacteria Cancelled 03/05/20 05:30 Hyaline Casts Cancelled 03/05/20 05:30 Fine Granular Casts Cancelled 03/05/20 05:30 Coarse Granular Casts Cancelled 03/05/20 05:30 Waxy Casts Cancelled 03/05/20 05:30 RBC Casts Cancelled 03/05/20 05:30 WBC Casts Cancelled 03/05/20 05:30 Urine Mucus Cancelled 03/05/20 05:30 Urine Other Cancelled 03/05/20 05:30 Urine Trichomonas Cancelled 03/05/20 05:30 Urine Yeast Cancelled 03/05/20 05:30 Ur Yeast w Hyphae Cancelled 03/05/20 05:30 Urine Yeast (Budding) Cancelled 03/05/20 05:30 Urine Sperm Cancelled 03/05/20 05:30 Urine Culture Reflexed Cancelled 03/05/20 05:30 Urine Total Volume Cancelled 03/05/20 05:30 Urine Total Protein Negative (NEG) 03/05/20 05:30 Opiates Screen Negative (NEGATIVE) 03/05/20 05:30 Methadone Screen Negative (NEGATIVE) 03/05/20 05:30 Ur Barbiturates Screen Negative (NEGATIVE) 03/05/20 05:30 Ur Phencyclidine Scrn Negative (NEGATIVE) 03/05/20 05:30 Amphetamines Screen Negative (NEGATIVE) 03/05/20 05:30 Benzodiazepines Screen Negative (NEGATIVE) 03/05/20 05:30 Cocaine Screen Negative (NEGATIVE) 03/05/20 05:30 Ur THC Screen Negative (NEGATIVE) 03/05/20 05:30 Microbiology Data (last 24 hrs): 03/04/20 05:25 Blood - Blood Anaerobic Blood Culture - Final Medications List Reviewed: Yes Assessment And Plan - Plan 1. Fever, likely secondary to streptococcus pneumoniae. Improving currently afebrile for greater than 24 hr.COVID- 19 has been ruled out. 2. Left lower lobe pneumonia. White count is trending down. Continue with IV antibiotics. Repeat CBC in a.m. follow up on culture results. Consult pulmonology. Patient is still hypoxic requiring 2 L of oxygen. 3. Streptococcus infection. We will continue antibiotics. 4. Person under investigation for COVID19. Patient does have fever, pneumonia, generalized weakness, hypoxia. Testing came back negative. 5. Upson disease. Back on p.o. dose of hydrocortisone. 6. Hypophosphatemia. Replace and monitor 7. Gastroesophageal reflux disease without esophagitis. We will continue PPI. 8. Mixed hyperlipidemia. We will hold statin due to possible coronavirus disease. 9. Hypoxemia. 10. Irritable bowel disease. 11. Generalized weakness, improving. 12. Depression with anxiety, stable. DVT prophylaxis addressed
[2020-03-07] MEDS ORDERED: METOPROLOL TARTRATE 5 MG/5 ML INJ IV STA (16:24)
[2020-03-07] MEDS ORDERED: clonazePAM 1 MG TAB PO ONE (16:25)
[2020-03-07] MEDS ORDERED: METOPROLOL TARTRATE 5 MG/5 ML INJ IV ONE (16:30)
[2020-03-07] MEDS: POLYETHYL GLY 3350 17 GM/DOSE PO SCH (16:57)
[2020-03-07] MEDS: DOCUSATE NA 100 MG CAP PO SCH ×2 (16:57→21:32)
[2020-03-07] MEDS: METOPROLOL TAR 50 MG TAB PO SCH (17:52)
[2020-03-07] MEDS ORDERED: METOPROLOL TAR 25 MG TAB PO SCH (18:00)
[2020-03-07] MEDS ORDERED: VANCOMYCIN 2 GM in NA CHLORIDE 0.9% 500 ML IVPB ONE (18:00)
[2020-03-07] MEDS: POTASS/SODIUM PHOSPHATE 1 PKT POWD.PACK PO SCH ×3 (21:32→23:55)
[2020-03-07] MEDS: AMITRIPTYLINE 50 MG TAB PO SCH (21:32)
[2020-03-08] MEDS: clonazePAM 1 MG TAB PO PRN ×3 (00:29→20:20)
[2020-03-08 04:53] LABS: Absolute Lymphocytes (CBC) 1.7 K/uL (0.7-4.9); Basophils % 0.4 % (0-1.3); Hematocrit 25.7 % (36.0-45.0); Lymphocytes % 17.5 % (15.3-44.8); RBC Red Blood Cell Count 2.94 M/uL (3.86-4.86)
[2020-03-08 05:07] LABS: BUN Blood Urea Nitrogen 6 mg/dL (7-18); Bicarbonate 32 mmol/L (21-32); Glucose Level 82 mg/dL (74-106); Phosphorus 2.3 mg/dL (2.5-4.9); Sodium Level 141 mmol/L (136-145)
[2020-03-08] MEDS: METOPROLOL TAR 50 MG TAB PO SCH ×2 (06:44→17:43)
[2020-03-08] MEDS: VANCOMYCIN 1.25 GM in NA CHLORIDE 0.9% 250 ML IVPB SCH ×2 (06:44→17:44)
[2020-03-08] MEDS: PANTOPRAZOLE 40MG TABLET PO SCH (07:47)
[2020-03-08] MEDS: DOCUSATE NA 100 MG CAP PO SCH ×2 (07:47→20:19)
[2020-03-08] MEDS: GUAIFENESIN 600 MG SA TAB PO SCH ×2 (07:47→20:19)
[2020-03-08] MEDS: POLYETHYL GLY 3350 17 GM/DOSE PO SCH (07:47)
[2020-03-08] MEDS: HYDROCORTISONE 10 MG TAB PO SCH ×2 (07:47→12:09)
[2020-03-08] MEDS: ASPIRIN 81 MG CHEWABLE TABLET PO SCH (07:47)
[2020-03-08] MEDS: ENOXAPARIN 40 MG/0.4 ML SQ SCH (07:48)
[2020-03-08] MEDS: FLUDROCORTISONE 0.1 MG TAB PO SCH (07:48)
[2020-03-08] MEDS: DULOXETINE 30 MG CAP PO SCH (07:48)
[2020-03-08] MEDS: POTASS/SODIUM PHOSPHATE 1 PKT POWD.PACK PO SCH ×3 (07:52→10:27)
[2020-03-08] MEDS: ENSURE HIGH PROTEIN 237 ML CAN PO SCH ×2 (07:53→20:21)
[2020-03-08] MEDS: FUROSEMIDE 20 MG/ 2ML VIAL IV SCH (08:20)
--- NOTE | 2020-03-08 08:29 | CON ---
Date of Consultation: 03/07/2020 Patient admitted on 03/05/[address] Andino. I saw the patient on 03/07/2020. Reason For Consultation: New onset atrial fibrillation. History Of Present Illness: Ms. Cerna is a 64-year-old white woman, has a history of dementia, depre ssion, dyslipidemia, irritable bowel syndrome, previous TIAs, and history of Roosevelt disorder. She c dolores in with pneumonia on 03/05/2020, elevated D-dimer at 1940 with negative CTA. Her creatinine was normal. Hemoglobin was 8.5. She had a white count of 13,000. While she was being treated for her p neumonia, she developed a rapid atrial fibrillation, rate of 140. Dr. Andino had initiated IV Lopress or. I increased her metoprolol to 50 b.i.d. She was not symptomatic with her atrial fibrillation. She denied any chest pain. Denied PND, orthopnea, pedal edema. She did have some palpitations. Den ied any fever or chills. Her potassium was 3.8 and her phosphate was 1.2 and both of those were bein g supplemented. Her magnesium was 2.2. Past Medical History: As stated above. Allergies: SULFA, PENICILLIN, AND PAIN PILLS. Review of Systems: Negative. Social History: Negative. Family History: Negative. Medications: At home include Elavil, aspirin, and Crestor. Physical Examination: General: She was pleasant, in no acute distress. Vital Signs: Stable. Afebrile. Atrial fibrillation, rate of 140. HEENT: Negative. Neck: Supple. No bruits. Chest: Crackles at both bases. Cardiac: Atrial fibrillation. Abdomen: Benign. EXTREMITIES: No clubbing, cyanosis. She had trace edema. Diagnostic Data: As stated earlier. Also included was in 2018, she had a normal EKG, normal carotid Doppler, and normal echocardiogram. Impression And Plan: New onset atrial fibrillation, may be secondary to low phosphate and low potass ium and pneumonia. I think we need to repeat an echocardiogram, check a TSH, continue beta-blockers, continue Lovenox. If she does not convert, we will consider Betapace or direct current cardioversio n. We will see what her echocardiogram shows tomorrow. Rest of her problems appear to be stable at this point. I will discuss the case further with Dr. Andino. YOANDY/RUPALI Voice ID: [id number] Report ID: [id number]
--- NOTE | 2020-03-08 08:47 | PN ---
Date of Progress Note: 03/08/2020 Ms. Cerna was seen yesterday for new onset atrial fibrillation, rapid ventricular response, rate in t he 140s with palpitations. No other symptoms. She has been in the hospital, being treated for pneum onia. She has other issues including history of TIA, dyslipidemia, dementia. Yesterday, her electro lytes included a low potassium and phosphate both of those were supplemented. She received IV Lopres sor. She was placed on metoprolol 50 b.i.d., and Lovenox. Today, she is in normal sinus rhythm. TS H is normal continued and we will continue the beta-blockers and Lovenox for now. We will see what t he echocardiogram shows, decide whether to put her on anticoagulants or just aspirin. I will discuss the case further with Dr. Andino after the echocardiogram. YOANDY/RUPALI Voice ID: [id number] Report ID: [id number]
[2020-03-08] MEDS ORDERED: POTASSIUM 25 MEQ EFFERV TAB PO ONE ×2 (09:00→17:00)
[2020-03-08] MEDS: ACETAMINOPHEN 500 MG TAB PO PRN (10:28)
--- NOTE | 2020-03-08 11:21 | RAD REPORT ---
EXAM DESCRIPTION: RAD - Chest Pa And Lat (2 Views) - 03/08/2020 9:53 am CLINICAL HISTORY: pneumonia Chest pain. COMPARISON: Chest Single View dated 03/05/2020; Chest Single View dated 03/04/2020; Chest Single View dated 08/02/2019; Chest Single View dated 05/23/2019 FINDINGS: Since 03/05/2020 there has been significant improvement in left-sided pneumonia. Mild infi ltrate with trace left pleural effusion persists in the region. The heart is normal in size. Right PI CC line is unchanged with tip in SVC. IMPRESSION: Significant improvement in left-sided pneumonia since comparative study. Mild infiltrate persists.
--- NOTE | 2020-03-08 12:30 | P.CNS ---
Date of Consult: 03/08/20 Reason for Consult: Abnormal chest x-ray Chief Complaint: pneumonia History of Present Illness: Patient is 64 years of age admitted with sudden onset of fever and sick for the past 2 or 3 days some left-sided chest pain dry cough coronal why rest test is negative he has had dyspnea for quite some time has never smoked abnormal chest x-ray left-sided infiltrate patient has no fever now Allergies Penicillins Allergy (Verified 03/16/19 23:40) Shortness of breath Sulfa (Sulfonamide Antibiotics) [Sulfa(Sulfonamide Antibiotics)] Allergy (Verified 03/16/19 23:40) Shortness of breath NSAIDS Adverse Reaction (Uncoded 03/16/19 23:40) Kidney Problems Home Medications: Amitriptyline [Elavil*] 100 mg PO BEDTIME 03/17/19 Estradiol [Estrace] 2 mg PO BEDTIME 03/17/19 Fludrocortisone [Florinef *] 2 mg PO DAILY 03/17/19 Hydrocortisone [Cortef*] 20 mg PO DAILY 03/17/19 Omeprazole [Prilosec] 40 mg PO DAILY 03/17/19 Promethazine HCl 25 mg PO BIDP PRN 03/17/19 Rosuvastatin [Crestor*] 10 mg PO BEDTIME 03/17/19 clonazePAM [Clonazepam] 1 mg PO BIDP PRN 03/17/19 Oxycodone HCl [Oxyir] 10 mg PO TID PRN 03/20/19 Duloxetine HCl [Cymbalta] 120 mg PO DAILY 05/09/19 Hydrocortisone [Cortef*] 10 mg PO LUNCH 05/09/19 Aspirin Chewable [Aspirin Chewable*] 1 tab PO DAILY 03/05/20 Polyethylene Glycol 3350 [Clearlax] 1 fred PO DAILY 03/05/20 Tizanidine [Zanaflex*] 2 mg PO BIDP PRN 03/05/20 Zaleplon [Sonata] 1 tab PO BEDTIME 03/05/20 - Past Medical/Surgical History Diabetic: No -: [place] -: Irritable Bowel Syndrome -: TIA -: Chronic back pain -: hyperlipidemia -: CVA -: hypothyroidism -: Cholecystectomy -: Appy -: -: Hysterectomy -: Explore Lap - Family History Mother Medical History: Cancer, Other (see notes) Notes: Asthma. Rheumatoid Arthritis - Social History Smoking Status: Former smoker Alcohol use: No CD- Drugs: No Caffeine use: Yes Place of Residence: Home Review of Systems Unremarkable Physical Examination Temp Pulse Resp BP Pulse Ox 96.9 F 65 20 139/63 95 03/08/20 12:00 03/08/20 12:00 03/08/20 12:00 03/08/20 12:00 03/08/20 12:00 General: Alert, Oriented x3 Neck: Supple Respiratory: Clear to auscultation bilaterally Cardiovascular: No edema Gastrointestinal: Normal bowel sounds, Soft and benign - Problems (1) Abnormal chest x-ray Current Visit: Yes Status: Acute Plan: Patient is 64 years of age admitted with fever mildly elevated white count pro calcitonin patient is now afebrile blood cultures sotalol for hemolytic strep possible contaminant patient's saturation is satisfactory start her on some Lasix the BNP was very elevated may have underlying heart failure symptoms are atypical of pneumonia await 2D echo possible discharge tomorrow on levofloxacin for now the patient has never smoked history of [place]'s disease chest x-ray shows a significant improvement today
[2020-03-08] MEDS: OXYCODONE HCL 5 MG TAB PO PRN ×2 (14:53→20:20)
[2020-03-08] MEDS ORDERED: Levofloxacin500mg IV 500 MG/100 ML BAG IV SCH (17:00)
--- NOTE | 2020-03-08 17:03 | P.PN ---
Subjective Date of Service: 03/08/20 Chief Complaint: pneumonia Subjective: Improving Patient seen and examined chart reviewed and case discussed with RN and Dr. Chávez. Still reports some shortness of breath. Was able to be weaned off of oxygen. Chest x-ray significantly better today. Has remained in sinus rhythm Review of Systems 10-point ROS is otherwise unremarkable Respiratory: As per HPI Physical Examination - Vital Signs Temperature: 97.5 F Blood Pressure: 161/74 Pulse: 69 Respirations: 20 Pulse Ox (%): 93 - Physical Exam General: Alert, Oriented x3, Mild distress, Obese, Other (Ill-appearing female) HEENT: Atraumatic, PERRLA, EOMI Neck: Supple, JVD not distended Respiratory: Diminished (Left base), Other (No wheezing or stridor. No use of a ccessory muscles) Cardiovascular: No edema, Normal pulses, Regular rate/rhythm, Normal S1 S2 Gastrointestinal: Normal bowel sounds, Soft and benign, Non-distended, No tenderness Musculoskeletal: No tenderness Integumentary: No rashes Neurological: Normal speech, Normal tone, Normal affect Lymphatics: No axilla or inguinal lymphadenopathy - Studies Laboratory Last Values WBC 12.6 K/uL (4.3-10.9) H 03/04/20 23:50 RBC 3.95 M/uL (3.86-4.86) 03/04/20 23:50 Hgb 10.8 g/dL (12.0-15.0) L 03/04/20 23:50 Hct 33.8 % (36.0-45.0) L 03/04/20 23:50 MCV 85.6 fL (80-100) D 03/04/20 23:50 MCH 27.5 pg (27.0-35.0) 03/04/20 23:50 MCHC 32.1 g/dL (32.0-36.0) 03/04/20 23:50 RDW 17.4 % (12.1-15.2) H 03/04/20 23:50 Plt Count 206 K/uL (152-406) 03/04/20 23:50 MPV 9.4 fL (7.6-11.3) 03/04/20 23:50 Neutrophils % 84.9 % (41.7-73.7) H 03/04/20 23:50 Lymphocytes % 10.3 % (15.3-44.8) L 03/04/20 23:50 Monocytes % 4.4 % (3.3-12.3) 03/04/20 23:50 Eosinophils % 0.2 % (0-4.4) 03/04/20 23:50 Basophils % 0.2 % (0-1.3) 03/04/20 23:50 Absolute Neutrophils 10.7 K/uL (1.8-8.0) H 03/04/20 23:50 Absolute Lymphocytes 1.3 K/uL (0.7-4.9) 03/04/20 23:50 Absolute Monocytes 0.6 K/uL (0.1-1.3) 03/04/20 23:50 Absolute Eosinophils 0.0 K/uL (0-0.5) 03/04/20 23:50 Absolute Basophils 0.0 K/uL (0-0.5) 03/04/20 23:50 PT 11.2 SECONDS (9.5-12.5) 03/04/20 23:50 INR 0.95 03/04/20 23:50 APTT Cancelled 03/04/20 23:50 Sodium 141 mmol/L (136-145) 03/04/20 23:50 Potassium 3.5 mmol/L (3.5-5.1) 03/04/20 23:50 Chloride 100 mmol/L (98-107) 03/04/20 23:50 Carbon Dioxide 31 mmol/L (21-32) 03/04/20 23:50 BUN 17 mg/dL (7-18) 03/04/20 23:50 Creatinine 1.07 mg/dL (0.55-1.3) 03/04/20 23:50 Estimated GFR 52 mL/min (=/>90) L 03/04/20 23:50 Glucose 67 mg/dL (74-106) L 03/04/20 23:50 POC Glucose 103 mg/dl (65-120) 03/04/20 22:29 Lactic Acid 1.2 mmol/L (0.4-2.0) 03/05/20 04:20 Calcium 8.7 mg/dL (8.5-10.1) 03/04/20 23:50 Total Bilirubin 0.3 mg/dL (0.2-1.0) 03/04/20 23:50 Direct Bilirubin 0.2 mg/dL (0-0.2) 03/04/20 23:50 AST 46 U/L (15-37) H 03/04/20 23:50 ALT 31 U/L (12-78) 03/04/20 23:50 Alkaline Phosphatase 89 U/L (45-117) 03/04/20 23:50 Creatine Kinase 579 U/L (26-192) H 03/04/20 23:50 CK-MB (CK-2) 1.7 ng/mL (0.3-3.6) 03/04/20 23:50 Rapid Troponin I < 0.02 ng/mL (0.0-0.045) 03/04/20 23:50 Serum Total Protein 6.7 g/dL (6.4-8.2) 03/04/20 23:50 Albumin 3.0 g/dL (3.4-5.0) L 03/04/20 23:50 Globulin 3.7 g/dL (2.3-3.5) H 03/04/20 23:50 Albumin/Globulin Ratio 0.8 (1.1-1.8) L 03/04/20 23:50 Amylase 29 U/L (25-115) 03/04/20 23:50 Lipase 44 U/L (73-393) L 03/04/20 23:50 Procalcitonin 1.72 ng/mL (<0.50) H 03/04/20 23:50 Urine Color Yellow 03/05/20 05:30 Urine Appearance Clear 03/05/20 05:30 Urine pH 7.0 (5.0-7.0) 03/05/20 05:30 Ur Specific [employer] 1.010 (1.005-1.030) 03/05/20 05:30 Glucose (UA)(Auto) Negative (NEG) 03/05/20 05:30 Urine Ketones Negative (NEG) 03/05/20 05:30 Urine Blood Negative (NEG) 03/05/20 05:30 Urine Nitrite Negative (NEG) 03/05/20 05:30 Urine Bilirubin Negative (NEG) 03/05/20 05:30 Urine Urobilinogen 0.2 mg/dL (0.2-1.0) 03/05/20 05:30 Ur Leukocyte Esterase Negative (NEG) 03/05/20 05:30 Urine RBC Cancelled 03/05/20 05:30 Urine WBC Cancelled 03/05/20 05:30 Ur Squamous Epith Cells Cancelled 03/05/20 05:30 Ur Urothelial Cells Cancelled 03/05/20 05:30 Calcium Oxalate Crystal Cancelled 03/05/20 05:30 Uric Acid Crystals Cancelled 03/05/20 05:30 Triple Phos Crystals Cancelled 03/05/20 05:30 Other Crystals Cancelled 03/05/20 05:30 Amorphous Sediment Cancelled 03/05/20 05:30 Glitter Cells Cancelled 03/05/20 05:30 Urine Bacteria Cancelled 03/05/20 05:30 Hyaline Casts Cancelled 03/05/20 05:30 Fine Granular Casts Cancelled 03/05/20 05:30 Coarse Granular Casts Cancelled 03/05/20 05:30 Waxy Casts Cancelled 03/05/20 05:30 RBC Casts Cancelled 03/05/20 05:30 WBC Casts Cancelled 03/05/20 05:30 Urine Mucus Cancelled 03/05/20 05:30 Urine Other Cancelled 03/05/20 05:30 Urine Trichomonas Cancelled 03/05/20 05:30 Urine Yeast Cancelled 03/05/20 05:30 Ur Yeast w Hyphae Cancelled 03/05/20 05:30 Urine Yeast (Budding) Cancelled 03/05/20 05:30 Urine Sperm Cancelled 03/05/20 05:30 Urine Culture Reflexed Cancelled 03/05/20 05:30 Urine Total Volume Cancelled 03/05/20 05:30 Urine Total Protein Negative (NEG) 03/05/20 05:30 Opiates Screen Negative (NEGATIVE) 03/05/20 05:30 Methadone Screen Negative (NEGATIVE) 03/05/20 05:30 Ur Barbiturates Screen Negative (NEGATIVE) 03/05/20 05:30 Ur Phencyclidine Scrn Negative (NEGATIVE) 03/05/20 05:30 Amphetamines Screen Negative (NEGATIVE) 03/05/20 05:30 Benzodiazepines Screen Negative (NEGATIVE) 03/05/20 05:30 Cocaine Screen Negative (NEGATIVE) 03/05/20 05:30 Ur THC Screen Negative (NEGATIVE) 03/05/20 05:30 Microbiology Data (last 24 hrs): 03/04/20 05:25 Blood - Blood Aerobic Blood Culture - Final 03/04/20 05:25 Blood - Blood Blood Culture Gram Stain - Final 03/04/20 05:25 Blood - Blood Anaerobic Blood Culture - Final Imagings Data: IMPRESSION: Significant improvement in left-sided pneumonia since comparative study. Mild infiltrate persists. Medications List Reviewed: Yes Assessment And Plan - Plan 1. Fever, likely secondary to streptococcus pneumoniae. Improving currently afebrile for greater than 48 hr.COVID- 19 has been ruled out. 2. Left lower lobe pneumonia. White count is trending down. Continue with IV antibiotics. WBC count normalized. No growth blood culture. Appreciate pulmonology input. 3. Streptococcus infection. We will continue antibiotics. 4. Atrial fibrillation with rapid ventricular rate. Patient is on beta blocke rs and full-dose Lovenox, aspirin. Echo pending. Appreciate cardiology input. 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 6. Hypophosphatemia. Replace and monitor. Improved now at 2.3 7. Gastroesophageal reflux disease without esophagitis. We will continue PPI. 8. Mixed hyperlipidemia. We will hold statin due to possible coronavirus disease. 9. Hypoxemia. Secondary to pneumonia and possible CHF. Echocardiogram has been obtained. Started on Lasix 10. Irritable bowel disease. 11. Generalized weakness, improving. 12. Depression with anxiety, stable. 13. Person under investigation for COVID19. Patient does have fever, pneumonia, generalized weakness, hypoxia. Testing came back negative. DVT prophylaxis addressed. Discharge Plan: Home Plan to discharge in: 24 Hours
[2020-03-08] MEDS: CEPACOL LOZENGES PO PRN (20:18)
[2020-03-08] MEDS: AMITRIPTYLINE 50 MG TAB PO SCH (20:19)
[2020-03-08] MEDS: ENOXAPARIN 80 MG/0.8 ML SQ SCH (20:20)
[2020-03-08] MEDS: ALBUTEROL 2.5 MG/3 ML NEB SOL NEB PRN (21:15)
[2020-03-09] MEDS: ACETAMINOPHEN 500 MG TAB PO PRN ×2 (00:46→11:02)
[2020-03-09] MEDS: KCL 20 MEQ/100 mL IVPB 20 MEQ/100 ML BAG IV SCH ×3 (03:05→08:58)
[2020-03-09] MEDS ORDERED: ONDANSETRON 4 MG/2 ML VIAL IV PRN (04:57)
[2020-03-09] MEDS: METOPROLOL TAR 50 MG TAB PO SCH (05:08)
[2020-03-09 05:17] LABS: Absolute Lymphocytes (CBC) 2.4 K/uL (0.7-4.9); Basophils % 0.7 % (0-1.3); Hematocrit 26.5 % (36.0-45.0); Lymphocytes % 24.8 % (15.3-44.8); RBC Red Blood Cell Count 3.11 M/uL (3.86-4.86)
[2020-03-09 05:58] LABS: ALT/SGPT 21 U/L (12-78); AST/SGOT 18 U/L (15-37); Albumin 2.5 g/dL (3.4-5.0); Alkaline Phosphatase 93 U/L (45-117); BUN Blood Urea Nitrogen 8 mg/dL (7-18); Bicarbonate 34 mmol/L (21-32); Bilirubin Total 0.2 mg/dL (0.2-1.0); Glucose Level 85 mg/dL (74-106); Magnesium 1.7 mg/dL (1.8-2.4); Phosphorus 2.3 mg/dL (2.5-4.9); Potassium 3.1 mmol/L (3.5-5.1); Protein, Total 6.4 g/dL (6.4-8.2); Sodium Level 143 mmol/L (136-145)
[2020-03-09] MEDS: VANCOMYCIN 1.25 GM in NA CHLORIDE 0.9% 250 ML IVPB SCH (06:09)
[2020-03-09] MEDS: POTASS/SODIUM PHOSPHATE 1 PKT POWD.PACK PO SCH ×3 (07:14→11:03)
--- NOTE | 2020-03-09 08:37 | P.DS ---
Admission Date: 03/05/20 Discharge Date: 03/09/20 Disposition: ROUTINE DISCHARGE Discharge Condition: FAIR Reason for Admission: pneumonia Consultations: Pulmonology Dr Son Cardiology Dr. Chávez Brief History of Present Illness: From H and P Patient is a 64-year-old female who came to the hospital with fever and congestion. She had a temperature of a 103 in the emergency room. She has been little short of breath and not feeling like herself so she finally decided to come into the hospital further evaluation. In the emergency room she had extensive workup performed on her which revealed that she had a pneumonia in the lower bases. She also had a leukocytosis. Patient also was hypoxic with O2 sats in the 80's on RA. Patient had a test swab performed as well for influenza the and strep. The patient has strep screen was positive. Patient was started on antibiotics to cover the pneumonia as well as a strep. At this time patient denies any sick contacts. Will admit patient to the hospital for further evaluation. Hospital Course: Patient is a 64-year-old female with past medical history of Creswell's disease hyperlipidemia comes in with high fever shortness of breath Looking like sepsis due to pneumonia. Patient was admitted to the COVID unit and testing was sent out to the health department. Her [place] virus testing came back negative. She will step down to the regular floor. Patient had left lower lobe pneumonia which was treated with IV antibiotics. Her white blood cell count improved she was positive for strep throat. Patient has multiple electrolyte abnormalities which were corrected she [place] developed atrial fibrillation. She started on anti coagulation echocardiogram was also done and cardiology was consulted. Patient went back into sinus rhythm was all in atrial fibrillation for a very brief period of time. She did well on beta-blockers. Patient overall did well over the course of hospital stay. She was seen by pulmonology. Her oxygen was weaned off. Patient was then cleared for discharge and was sent home in a stable condition. She will finish up a course of antibiotics with Levaquin. She will need to have close followup with cardiology for her atrial fibrillation. Patient also has some chronic nephrolithiasis which needs to be addressed by neurology as an outpatient. 1. Fever, likely secondary to streptococcus pneumoniae. Improving currently afebrile for greater than 48 hr.COVID- 19 has been ruled out. 2. Left lower lobe pneumonia. White count is trending down. Continue with IV antibiotics. WBC count normalized. No growth blood culture. Appreciate pulmonology input. 3. Streptococcus infection. We will continue antibiotics. 4. Atrial fibrillation with rapid ventricular rate. Patient is on beta blockers and full-dose Lovenox, aspirin. Echo pending. Appreciate cardiology input. 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 6. Hypophosphatemia. Replace and monitor. Improved now at 2.3 7. Gastroesophageal reflux disease without esophagitis. We will continue PPI. 8. Mixed hyperlipidemia. We will hold statin due to possible coronavirus disease. 9. Hypoxemia. Secondary to pneumonia and possible CHF. Echocardiogram has been obtained. Started on Lasix 10. Irritable bowel disease. 11. Generalized weakness, improving. 12. Depression with anxiety, stable. 13. Person under investigation for COVID19. Patient does have fever, pneumonia, generalized weakness, hypoxia. Testing came back negative. Vital Signs/Physical Exam: Temp Pulse Resp BP Pulse Ox 97.1 F 64 18 160/80 H 96 03/09/20 04:00 03/09/20 05:08 03/09/20 04:00 03/09/20 05:08 03/09/20 04:00 General: Alert, In no apparent distress, Oriented x3, Obese HEENT: Atraumatic, PERRLA, EOMI Neck: Supple, JVD not distended Respiratory: Clear to auscultation bilaterally, Normal air movement Cardiovascular: No edema, Normal pulses, Regular rate/rhythm, Normal S1 S2 Gastrointestinal: Normal bowel sounds, Soft and benign, Non-distended, No tenderness Musculoskeletal: No tenderness Integumentary: No rashes Neurological: Normal speech, Normal strength at 5/5 x4 extr, Normal tone, Normal affect Laboratory Data at Discharge: WBC 9.7 K/uL (4.3-10.9) 03/09/20 04:35 Hgb 8.9 g/dL (12.0-15.0) L 03/09/20 04:35 Hct 26.5 % (36.0-45.0) L 03/09/20 04:35 Plt Count 194 K/uL (152-406) 03/09/20 04:35 PT 11.2 SECONDS (9.5-12.5) 03/04/20 23:50 INR 0.95 03/04/20 23:50 APTT Cancelled 03/04/20 23:50 Sodium Cancelled 03/09/20 Unknown Potassium Cancelled 03/09/20 Unknown BUN Cancelled 03/09/20 Unknown Creatinine Cancelled 03/09/20 Unknown Glucose Cancelled 03/09/20 Unknown Phosphorus Cancelled 03/09/20 Unknown Magnesium Cancelled 03/09/20 Unknown Total Bilirubin 0.2 mg/dL (0.2-1.0) 03/09/20 04:35 AST 18 U/L (15-37) 03/09/20 04:35 ALT 21 U/L (12-78) 03/09/20 04:35 Alkaline Phosphatase 93 U/L (45-117) 03/09/20 04:35 Triglycerides 80 mg/dL (<150) 03/06/20 04:00 Cholesterol 135 mg/dL (<200) 03/06/20 04:00 HDL Cholesterol 83 mg/dL (40-60) H 03/06/20 04:00 Cholesterol/HDL Ratio 1.63 03/06/20 04:00 Amylase 29 U/L (25-115) 03/04/20 23:50 Lipase 44 U/L (73-393) L 03/04/20 23:50 Home Medications: Amitriptyline [Elavil*] 100 mg PO BEDTIME 03/17/19 Estradiol [Estrace] 2 mg PO BEDTIME 03/17/19 Fludrocortisone [Florinef *] 2 mg PO DAILY 03/17/19 Hydrocortisone [Cortef*] 20 mg PO DAILY 03/17/19 Omeprazole [Prilosec] 40 mg PO DAILY 03/17/19 Promethazine HCl 25 mg PO BIDP PRN 03/17/19 Rosuvastatin [Crestor*] 10 mg PO BEDTIME 03/17/19 clonazePAM [Clonazepam] 1 mg PO BIDP PRN 03/17/19 Oxycodone HCl [Oxyir] 10 mg PO TID PRN 03/20/19 Duloxetine HCl [Cymbalta] 120 mg PO DAILY 05/09/19 Hydrocortisone [Cortef*] 10 mg PO LUNCH 05/09/19 Aspirin Chewable [Aspirin Chewable*] 1 tab PO DAILY 03/05/20 Polyethylene Glycol 3350 [Clearlax] 1 fred PO DAILY 03/05/20 Zaleplon [Sonata] 1 tab PO BEDTIME 03/05/20 Metoprolol Tartrate [Lopressor*] 50 mg PO BID 6AM 6PM #60 tab 03/09/20 Spironolactone 12.5 mg PO DAILY #30 tablet 03/09/20 levoFLOXacin [Levaquin] 500 mg PO DAILY #5 tab 03/09/20 New Medications: levoFLOXacin [Levaquin] 500 mg PO DAILY #5 tab Metoprolol Tartrate [Lopressor*] 50 mg PO BID 6AM 6PM #60 tab Spironolactone 12.5 mg PO DAILY #30 tablet Patient Discharge Instructions: Follow up with primary care physician in 1 week. Follow up with certified maintenance welder Dr. Chávez in 2 weeks. Follow up with desk lieutenant Dr. Son in 2 weeks. Return to ER for worsening condition Diet: AHA Activity: Ad hossein Time spent managing pt's care (in minutes): 37
[2020-03-09] MEDS: PANTOPRAZOLE 40MG TABLET PO SCH (08:59)
[2020-03-09] MEDS: GUAIFENESIN 600 MG SA TAB PO SCH (08:59)
[2020-03-09] MEDS: HYDROCORTISONE 10 MG TAB PO SCH ×2 (08:59→12:00)
[2020-03-09] MEDS: DULOXETINE 30 MG CAP PO SCH (08:59)
[2020-03-09] MEDS: DOCUSATE NA 100 MG CAP PO SCH (08:59)
[2020-03-09] MEDS: ASPIRIN 81 MG CHEWABLE TABLET PO SCH (09:00)
[2020-03-09] MEDS: POLYETHYL GLY 3350 17 GM/DOSE PO SCH (09:00)
[2020-03-09] MEDS ORDERED: MAGNESIUM SULFATE 1 gm IVPB 1 GM/100 ML BAG IV ONE (09:00)
[2020-03-09] MEDS: ENOXAPARIN 80 MG/0.8 ML SQ SCH (09:00)
[2020-03-09] MEDS: FUROSEMIDE 20 MG/ 2ML VIAL IV SCH (09:00)
[2020-03-09] MEDS: ENSURE HIGH PROTEIN 237 ML CAN PO SCH (09:02)
[2020-03-09] MEDS: OXYCODONE HCL 5 MG TAB PO PRN (09:21)
--- NOTE | 2020-03-09 09:53 | RAD REPORT ---
EXAM DESCRIPTION: RAD - Chest Single View - 03/09/2020 9:35 am CLINICAL HISTORY: pneumonia Chest pain. COMPARISON: Chest Pa And Lat (2 Views) dated 03/08/2020; Chest Single View dated 03/05/2020; Chest Sin gle View dated 03/04/2020; Chest Single View dated 08/02/2019 FINDINGS: Portable technique limits examination quality. No significant change is seen in the mild left-sided infiltrate pattern since 03/08/2020. Right upper lobe mild infiltrate appears slightly more prominent relative to comparative study. The heart is nor mal in size. Right PICC line is unchanged in position.
[2020-03-09] MEDS: FLUDROCORTISONE 0.1 MG TAB PO SCH (11:03)
[2020-03-09 12:02] VITALS: BP 157/73; TEMP 98.4
--- NOTE | 2020-03-09 12:07 | EKG ---
Test Date: 2020-03-07 Test Time: 16:36:10 Construction Safety Manager: JENNIFER MEASUREMENT RESULTS: Intervals: Rate: 147 DE: QRSD: 94 QT: 266 QTc: 416 [place]: P: DE: QRS: 8 T: 202 INTERPRETIVE STATEMENTS: Atrial fibrillation with rapid ventricular response with premature ventricular or aberrantly conducted complexes ST & T wave abnormality, consider inferolateral ischemia or digitalis effect Abnormal ECG Compared to ECG 08/02/2019 13:23:58 Ventricular premature complex(es) now present ST (T wave) deviation now present Possible ischemia now present Sinus rhythm no longer present Sinus arrhythmia no longer present Left ventricular hypertrophy no longer present Early repolarization no longer present Electronically Signed On 03-09-20 12:03:23 CDT by Michael Chávez
--- NOTE | 2020-03-09 12:31 | ECHO ---
HEIGHT: 5 ft 3 in WEIGHT: 169 lb 6.4 oz DATE OF STUDY: 03/08/[address]: Dheeraj Andino MD 2-DIMENSIONAL: YES M.MODE: YES DOPPLER: YES COLOR FLOW: YES TDS: NO PORTABLE: NO DEFINITY: NO BUBBLE STUDY: NO DIAGNOSIS: ATRIAL FIBRILLATION/ CHEST PAIN CARDIAC HISTORY: CATHERIZATION: NO SURGERY: NO PROSTHETIC VALVE: NO PACEMAKER: NO MEASUREMENTS (cm) DIASTOLIC (NORMALS) SYSTOLIC (NORMALS) IVSd 1.0 (0.6-1.2) LA Diam 3.8 (1.9-4.0) LVEF 71% LVIDd 4.4 (3.5-5.7) LVIDs 2.6 (2.0-3.5) %FS 40% LVPWd 1.1 (0.6-1.2) Ao Diam 2.7 (2.0-3.7) 2 DIMENSIONAL ASSESSMENT: RIGHT ATRIUM: NORMAL LEFT ATRIUM: NORMAL RIGHT VENTRICLE: NORMAL LEFT VENTRICLE: NORMAL TRICUSPID VALVE: NORMAL MITRAL VALVE: NORMAL PULMONIC VALVE: NORMAL AORTIC VALVE: NORMAL PERICARDIAL EFFUSION: NONE AORTIC ROOT: NORMAL LEFT VENTRICULAR WALL MOTION: NORMAL. DOPPLER/COLOR FLOW: NORMAL. COMMENTS: NORMAL LEFT VENTRICULAR SIZE AND FUNCTION. NORMAL LEFT VENTRICULAR SIZE. NO WALL MOTION ABNORMALITY. NO THROMBUS. TECHNOLOGIST: CHRISTELLE BARROS
[2020-03-09 13:03] VITALS: O2SAT 92
--- NOTE | 2020-03-09 16:37 | PN ---
Date of Progress Note: 03/09/2020 Ms. Cerna had came in with pneumonia, has a history of TIA, dementia, and hypercholesterolemia. Tony loped atrial fibrillation since she has been in the hospital. She is on beta-blockers and Lovenox no w. She is still having paroxysmal atrial fibrillation. Her magnesium was 1.7, potassium is 2.9, bot h of those need to be supplemented. Her hemoglobin is 8.9. Echocardiogram which was done yesterday showed normal ejection fraction without any wall motion abnormalities. No effusion. I still think s he is at high risk for CVA from atrial fibrillation and when she is ready to go home, she needs to be on a beta-chelo and she needs to be on Eliquis or Xarelto. I leave that up to Dr. Andino. We will follow up with her in the office in the next week or 2. YOANDY/RUPALI Voice ID: [id number] Report ID: [id number]
== END 2020-03-09 14:16 | disposition home or self-care (01) | DRG 871 ==
LOC: ER 21:25 → 4TH 03-05 03:29 → OBSVTOIN 03-05 08:16 → 2ND 03-06 19:16 → UNDODISIN 03-09 12:35
PROVIDERS: ADMIT Hospitalist; ATTEND Family Medicine
PROC: 02HV33Z Insertion of Infusion Device into Superior Vena Cava, Percutaneous Approach (ICD-10-PCS; principal; 2020-03-05)
DX: A41.9 Sepsis, unspecified organism (principal); J13 Pneumonia due to Streptococcus pneumoniae; E27.1 Primary adrenocortical insufficiency; I48.0 Paroxysmal atrial fibrillation; N20.0 Calculus of kidney; E83.39 Other disorders of phosphorus metabolism; K21.9 Gastro-esophageal reflux disease without esophagitis; E78.2 Mixed hyperlipidemia; F41.8 Other specified anxiety disorders; I50.9 Heart failure, unspecified; Z79.82 Long term (current) use of aspirin; Z79.899 Other long term (current) drug therapy; Z88.1 Allergy status to other antibiotic agents; Z88.0 Allergy status to penicillin; Z90.49 Acquired absence of other specified parts of digestive tract; Z90.710 Acquired absence of both cervix and uterus; Z87.891 Personal history of nicotine dependence; E66.9 Obesity, unspecified; Z68.29 Body mass index [BMI] 29.0-29.9, adult; K58.9 Irritable bowel syndrome, unspecified; R06.02 Shortness of breath; R50.9 Fever, unspecified; R09.02 Hypoxemia; Z86.73 Personal history of transient ischemic attack (TIA), and cerebral infarction without residual deficits
CPT/HCPCS: 36415; 36569; 71045; 71046; 74176; 80048; 80053; 80061; 80076; 80202; 80307; 81003; 82150; 82550; 82553; 82947; 83605; 83690; 83735; 83880; 84100; 84132; 84145; 84443; 84484; 85025; 85379; 85610; 87040; 87081; 87205; 87804; 93005; 93306; 94640; 94760; 96365; 96366; 96367; 96375; 99285; G0378; J0456; J0696; J1650; J1720; J1940; J2270; J2405; J3475; J7030; J7040; U0001

== ENCOUNTER 2020-06-25 05:20 | Inpatient (IN) | payer OTHER ==
--- OUTSIDE RECORDS SUMMARY | 2020-06-25 05:23 | XMS REPORT | Summary of Care ---
:1955 Author Organization [facility] Address [address] [place] [id number] Care Team Providers Name Role Phone Yaneth Primary Care Provider Reason for Visit Reason Comments Refill Request Encounter Details Date Type Department Care Team Description 06/15/2020 Refill [facility] Endocrinology- Jesus Fox MD Refill Request [address] [address] [address] [place] [address] [place] [address] [phone] Allergies Active Allergy Reactions Severity Noted Date Comments Penicillins Anaphylaxis 09/21/2007 Sulfa (Sulfonamide Antibiotics) Anaphylaxis 7 documented as of this encounter (statuses as of 06/15/2020) Medications Medication Sig Dispensed Refills Start Date [...] 3 06/09/2017 Active tabletIndications: three times a Lander disease week Additional information Patient taking differently: [...] 2 mg Take 2 mg by 0 A ctive tablet mouth 3 (three) times daily. [place] ORAL Take by 0 A ctive mouth. tiZANidine 2 mg 0 06/10/2019 Act christiana tablet LEVOTHYROXINE 25 mcg TAKE 1 TABLET 90 tablet 1 03/26/2020 Active tabletIndications: BY MOUTH EVERY Subclinical MORNING hypothyroidism hydrocortisone 10 mg TAKE TWO 140 tablet 5 06/15/2020 Active tabletIndications: TABLETS BY Lander disease MOUTH IN THE MORNING AND ONE TABLET AT 2:00PM, take extra on sick days hydrocortisone 10 mg TAKE TWO 140 tablet 6 07/26/2019 Discontinued tabletIndications: TABLETS BY 020 (Reorder) Lander disease MOUTH IN THE MORNING AND ONE TABLET AT 2:00PM, take extra on sick days documented as of this encounter (statuses as of 06/15/2020) Active Problems Problem Noted Date 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 Chest pain 01/11/2018 Obesity (BMI 30-39.9) 01/11/2018 Elevated alkaline phosphatase level 06/09/2017 Abnormal thyroid blood test 06/09/2017 Lander disease 06/09/2017 documented as of this encounter (statuses as of 06/15/2020) Immunizations Name Administration Dates Next Due Influenza [...] Treatment Date Type Specialty Care Team Description 09/28/2020 Office Visit Endocrinology Diabetes & Tia tran, Jesus Jolly MD Metabolism [address] [id number] [phone] Health Maintenance Due Date Last Done Comments DTaP,Tdap,and Td Vaccines (1 - 1967 Tdap) PAP SMEAR 1977 Breast Cancer Screening 1996 (MAMMOGRAM) COLONOSCOPY 2006 Zoster Recombinant Vaccine 2006 (SHINGRIX) (1 of 2) LUNG CANCER SCREEN: Recommended 2011 for age 55-80 with 30 + pack year history INFLUENZA VACCINE (#1) 2020 01/12/2018 Depression Screening 09/28/2020 09/28/2019 HEPATITIS C (HCV) SCREEN Completed 07/30/2006 PNEUMOCOCCAL 0-64 YEARS COMBINED Aged Out No longer eligible based on SERIES patient's age to complete this topic documented as of this encounter Results Not on filedocumented in this encounter Visit Diagnoses Diagnosis Lander disease Glucocorticoid deficiency documented in this encounter Insurance Payer Benefit Plan / Subscriber ID Effective Phone Address T ype Group Dates [facility] MEDICARE [id number] 2019-Silke velazquez [facility] HEALTHCARE COMPLETE nt PPO MEDICARE CHOICE ADVANTAGE documented as of this encounter
--- OUTSIDE RECORDS SUMMARY | 2020-06-25 05:23 | XMS REPORT | Continuity of Care Document ---
:1955 Author Organization [facility] t Address [address] [place] [address] Care Team Providers Name Role Phone Jeanne TREADWELL, H Attending Clinician Nadir TREADWELL Attending Clinician Problems This patient has no known problems. Allergies, Adverse Reactions, Alerts This patient has no known allergies or adverse reactions. Medications This patient has no known medications. Procedures This patient has no known procedures. Encounters Start End Encounter Admission Attending Care Care Encounter Source Date/Time Date/Time Type Type Clinicians Facility Department ID 2020-06-15 2020-06-15 CARLENE Rodriguez [id number] 00:00:00 00:00:00 Jesus Segal [id number] [facility] [id number] [facility] [phone] nal 220 Building 2020-03-25 2020-03-25 CARLENE Amos [id number] 00:00:00 00:00:00 Chasidy Segal [id number] [place] [id number] Professio [phone] nal 220 [facility] Results This patient has no known results.
[2020-06-25] MEDS ORDERED: RSI MEDICATION KIT IV ONE (05:49)
[2020-06-25] MEDS ORDERED: propofoL 1,000 MG/100 ML VIAL IV ONE ×3 (05:50→19:56)
[2020-06-25] MEDS ORDERED: NA CHLORIDE 0.9% 1,000 ML ONE ×3 (05:50→21:27)
--- NOTE | 2020-06-25 06:20 | EDPHYS ---
Physician Documentation [facility] Name: Dulce Cerna Age: 64 yrs Sex: Female : 1955 Arrival Date: 06/25/2020 Time: 05:23 Bed 9 Private MD: ED Physician HPI: 06/25 06:25 This 64 yrs old Female presents to ER via EMS with complaints of Covid. tw4 06:25 The patient has shortness of breath at rest. Onset: The symptoms/episode began/occurred tw4 this morning. Duration: The symptoms are continuous, and are steadily getting worse. The patient's shortness of breath has no apparent modifying factors. Associated signs and symptoms: The patient has no apparent associated signs or symptoms. Severity of symptoms: At their worst the symptoms were moderate in the emergency department the symptoms are unchanged. The patient has not experienced similar symptoms in the past. Historical: - Allergies: 06:28 "pain pills"; wh 06:28 PENICILLINS; 06:28 Sulfa (Sulfonamide Antibiotics); wh - PMHx: 06:28 addisons; Chronic pain; Depression; Early Dementia; Hyperlipidemia; Irritable bowel wh syndrome; TIA; - Immunization history:: Adult Immunizations unknown. - Social history:: Smoking status: Patient/guardian denies using. ROS: 06:25 Constitutional: Negative for fever, chills, and weight loss, Eyes: Negative for injury, tw4 pain, redness, and discharge, Cardiovascular: Negative for chest pain, palpitations, and edema, Abdomen/GI: Negative for abdominal pain, nausea, vomiting, diarrhea, and constipation, Back: Negative for injury and pain, MS/Extremity: Negative for injury and deformity, Skin: Negative for injury, rash, and discoloration, Neuro: Negative for headache, weakness, numbness, tingling, and seizure. 06:25 Respiratory: Positive for shortness of breath. Exam: 06:25 Head/Face: Normocephalic, atraumatic. Chest/axilla: Normal chest wall appearance and tw4 motion. Nontender with no deformity. No lesions are appreciated. Cardiovascular: Regular rate and rhythm with a normal S1 and S2. No gallops, murmurs, or rubs. Normal PMI, no JVD. No pulse deficits. 06:25 Abdomen/GI: Soft, non-tender, with normal bowel sounds. No distension or tympany. No guarding or rebound. No evidence of tenderness throughout. 06:25 Constitutional: The patient appears anxious, diaphoretic, lethargic, listless, in obvious distress, severely distressed, obviously ill. 06:25 Head/face: Noted is 06:25 Respiratory: moderate respiratory distress is noted, Respirations: labored breathing, that is moderate, accessory muscle usage, that is moderate. 06:25 Skin: Appearance: Color: dusky, pale. 06:25 Neuro: Orientation: Mentation: slow to respond. Vital Signs: 05:30 BP 173 / 115; Pulse 87; Resp 24; Pulse Ox 92% 15 lpm ; Weight 80 kg; wh 06:00 BP 176 / 96; Pulse 88; Resp 24; Temp 104; Pulse Ox 95% on 100% FiO2 ETT vent; wh 06:09 BP 148 / 115; Pulse 111; Resp 16; Pulse Ox 99% on 100% FiO2 ETT vent; wh 06:30 BP 191 / 78; Pulse 86; Resp 16; Pulse Ox 97% on 100% FiO2 ETT vent; wh 07:00 BP 200 / 81; Pulse 106; Resp 26; Temp 103.8(C); Pulse Ox 99% on ETT vent; sv 08:05 BP 150 / 68; Pulse 85; Resp 26; Temp 102.6(C); Pulse Ox 100% on ETT vent; sv 09:02 BP 145 / 61; Pulse 81; Resp 18; Temp 100.8(C); Pulse Ox 100% on 60% FiO2 ETT vent; sv 10:02 Height 5 ft. 3 in. (160.02 cm); sv 10:02 BP 139 / 68; Pulse 76; Resp 16; Temp 100.8; Pulse Ox 100% on 60% FiO2 ETT vent; sv 10:02 Body Mass Index 31.24 (80.00 kg, 160.02 cm) sv Mariana Coma Score: 05:35 Eye Response: spontaneous(4). Verbal Response: oriented(5). Motor Response: obeys commands(6). Total: 15. 06:30 Eye Response: none(1). Verbal Response: none(1). Motor Response: none(1). Modifying wh Factors: Intubated. Total: 3. Procedures: 06:27 Intubation: Ventilated with 100% NRB prior to procedure. O2 saturation prior to tw4 procedure was 88 %. Intubated orally using # 4 Claire blade with 7.5 mm ETT. was successful on first attempt. Ventilated with Ambu bag. Tube secured with tape with ETT rodriguez Placement verified by CXR, CO2 detector with (+) color change, auscultating bilateral breath sounds, Patient tolerated well. Peripheral line: by aseptic technique a peripheral line was placed in the left external jugular vein. 08:06 Central Line: the site was prepped with Betadine, in sterile fashion, a triple lumen christ catheter was inserted, in the right femoral vein, in 1 attempts. placement was verified, by blood return, the site was dressed with Tegaderm, using sterile technique, the patient tolerated the procedure, well. MDM: 06:19 Patient medically screened. tw4 06:28 Data reviewed: vital signs, nurses notes. tw4 06:41 Data interpreted: Pulse oximetry:. ED course: adjusted ETT pulled back 2cm. 06/26 03:48 ED course: Called to room by nurse, patient had already self-extubated, holding O2 sats rn 97%, RT called for suctioning and further care, will continue to monitor. Is coughing and does not seem to be in respiratory distress. . 06/25 05:31 Order name: Blood Culture Adult (2) 06/25 05:31 Order name: BMP; Complete Time: 15:11 06/25 05:31 Order name: C-Reactive Protein; Complete Time: 15:11 06/25 05:31 Order name: CBC with Diff; Complete Time: 07:24 06/25 05:31 Order name: COVID-19; Complete Time: 15:11 06/25 05:31 Order name: D-Dimer; Complete Time: 15:11 06/25 05:31 Order name: Ferritin; Complete Time: 15:11 06/25 05:31 Order name: Flu; Complete Time: 15:11 06/25 05:31 Order name: Lactate; Complete Time: 07:24 06/25 05:31 Order name: LFT's; Complete Time: 15:11 06/25 05:32 Order name: Lipase; Complete Time: 15:11 03 05:32 Order name: Procalcitonin; Complete Time: 07:24 tw4 06/25 05:32 Order name: PT-INR; Complete Time: 15:11 tw4 06/25 05:32 Order name: Ptt, Activated; Complete Time: 15:11 tw4 06/25 05:32 Order name: Strep; Complete Time: 15:11 tw4 06/25 05:32 Order name: Troponin (emerg Dept Use Only); Complete Time: 15:11 tw4 06/25 07:05 Order name: ABG Arterial Blood Gas; Complete Time: 07:24 EDMS 06/25 08:43 Order name: CBC with Automated Diff EDMS 06/25 08:43 Order name: CBC with Automated Diff; Complete Time: 15:11 EDMS 06/25 08:43 Order name: Comprehensive Metabolic Panel EDMS 06/25 08:43 Order name: Comprehensive Metabolic Panel; Complete Time: 15:11 EDMS 06/25 08:43 Order name: Lactate EDMS 06/25 08:43 Order name: Lactate; Complete Time: 15:11 EDMS 06/25 08:43 Order name: Magnesium EDMS 06/25 08:43 Order name: Magnesium; Complete Time: 15:11 EDMS 06/25 08:43 Order name: NT PRO-BNP EDMS 06/25 08:43 Order name: NT PRO-BNP; Complete Time: 15:11 EDMS 06/25 08:43 Order name: Phosphorus EDMS 06/25 08:43 Order name: Phosphorus; Complete Time: 15:11 EDMS 06/25 09:20 Order name: Lactate Sepsis 2 HR Follow-up; Complete Time: 15:11 EDMS 06/25 05:32 Order name: CXR XRAY; Complete Time: 07:24 tw4 06/25 06:29 Order name: CXR XRAY; Complete Time: 07:24 tw4 06/25 09:26 Order name: LAB Add On sv 06/25 09:40 Order name: Phosphorus; Complete Time: 15:11 EDMS 06/25 09:51 Order name: Glucose, Ancillary Testing; Complete Time: 15:11 EDMS 06/25 10:07 Order name: Urine Dipstick--Ancillary (enter results) bd 06/25 10:56 Order name: Urine Dipstick-Ancillary; Complete Time: 15:11 EDMS 06/25 16:54 Order name: Potassium; Complete Time: 15:11 EDMS 06/26 09:50 Order name: Throat Culture EDMS 06/26 09:55 Order name: Phosphorus; Complete Time: 15:11 EDMS 06/26 09:55 Order name: Magnesium; Complete Time: 15:11 EDMS 06/26 10:13 Order name: CBC Smear Scan; Complete Time: 15:11 EDMS 06/26 10:53 Order name: Lactate Sepsis 2 HR Follow-up; Complete Time: 15:11 EDMS 06/26 14:10 Order name: CT; Complete Time: 15:11 EDMS 06/26 16:43 Order name: Glucose, Ancillary Testing EDMS 06/25 05:32 Order name: EKG; Complete Time: 05:33 tw4 06/25 05:32 Order name: Cardiac monitoring; Complete Time: 06:51 tw4 06/25 05:32 Order name: Document PUI#; Complete Time: 06:51 tw4 06/25 05:32 Order name: Droplet/Contact Precautions; Complete Time: 06:51 tw4 06/25 05:32 Order name: EKG - Nurse/Tech; Complete Time: 06:51 tw4 06/25 05:32 Order name: Gonzales; Complete Time: 06:51 tw4 06/25 05:32 Order name: IV Start; Complete Time: 06:51 tw4 06/25 05:32 Order name: Labs collected and sent; Complete Time: 06:51 tw4 06/25 05:32 Order name: O2 Per Protocol; Complete Time: 06:51 tw4 06/25 05:32 Order name: O2 Sat Monitoring; Complete Time: 06:51 tw4 06/25 05:32 Order name: Urine Dipstick-Ancillary (obtain specimen); Complete Time: 11:47 tw4 06/25 07:09 Order name: Labs - recollect needed: recollect ddimer; Complete Time: 07:36 bd 06/25 07:32 Order name: Central Line Kit; Complete Time: 08:17 christ 06/25 08:43 Order name: CONS Physician Consult EDIN 06/25 08:43 Order name: Dietitian Consult EDIN 06/25 08:43 Order name: Tube Feeding EDIN Administered Medications: 06/25 05:53 Drug: Etomidate 20 mg {Note: Administered by Tawny LEÓN} Route: IVP; Site: left jugular;wh 07:00 Follow up: Response: No adverse reaction sv 05:55 Drug: Succinylcholine 100 mg {Note: Administered by Tawny LEÓN} Route: IVP; Site: left wh jugular; 07:00 Follow up: Response: No adverse reaction sv 06:00 Drug: Tylenol Suppository 10 mg/kg Route: ID; rv 07:00 Follow up: Response: No adverse reaction sv 06:35 Drug: Versed 4 mg {Note: Administered by David Alfredo RN.} Route: IVP; Site: left wh jugular; 07:00 Follow up: Response: No adverse reaction sv 07:00 Drug: Decadron - Dexamethasone 10 mg Route: IVP; Site: left jugular; rv 08:00 Follow up: Response: No adverse reaction sv 07:00 Drug: Lovenox 1 mg/kg Route: Sub-Q; Site: abdomen; rv 07:30 Follow up: Response: No adverse reaction sv 07:19 Drug: AZITHromycin 500 mg Route: IVPB; Infused Over: 1 hrs; Site: left jugular; rv 09:46 Follow up: Response: No adverse reaction; IV Status: Completed infusion; IV Intake: sv 250ml 07:50 Drug: Pepcid 20 mg Route: IVP; Site: left jugular; sv 09:08 Follow up: Response: No adverse reaction sv 07:53 Drug: Solu-CORTEF 100 mg Route: IVP; Site: left jugular; sv 08:00 Follow up: Response: No adverse reaction sv 08:18 Drug: Midazolam 0.1 mg/kg/h {Note: started at 0.5 mg/hr per Dr Pruitt.} Route: IVP; sv Site: right femoral; 11:47 Follow up: Response: No adverse reaction sv 08:19 Drug: vancoMYCIN 1 grams Route: IVPB; Infused Over: 2 hrs; Site: right femoral; sv 09:46 Follow up: Response: No adverse reaction; IV Status: Completed infusion; IV Intake: sv 250ml 08:23 Drug: NS 0.9% 1000 ml Route: IV; Rate: 1000 ml; Site: right femoral; sv 09:07 Follow up: Response: No adverse reaction; IV Status: Completed infusion; IV Intake: sv 1000ml 08:23 Drug: NS 0.9% 1000 ml Route: IV; Rate: 1000 ml; Site: right femoral; sv 09:07 Follow up: Response: No adverse reaction; IV Status: Completed infusion; IV Intake: sv 1000ml 09:07 Drug: NS 0.9% 1000 ml Route: IV; Rate: 125 ml/hr; Site: right femoral; sv 11:27 Follow up: Response: No adverse reaction; IV Status: Infusion continued upon admission sv 09:26 CANCELLED (Duplicate Order): Potassium Chloride 20 mEq IV at per protocol once; sv administer over 1-2 hours 09:45 Drug: Potassium Chloride 20 mEq Route: IV; Rate: per protocol; Site: right femoral; sv 11:27 Follow up: Response: No adverse reaction; IV Status: Infusion continued upon admission sv 11:27 Not Given (to be given and documented in [employer]): Potassium Chloride 20 mEq IV at sv calculated rate once; administer over 1-2 hours 08 07:25 Drug: Metoprolol 5 mg {Note: as ordered by Dr. Valdez, Hospitalist -phone order.} mg2 Route: IVP; Site: right femoral; 07:35 Drug: Metoprolol 5 mg Route: IVP; Site: right femoral; aa5 07:55 Drug: Metoprolol 5 mg Route: IVP; Site: right femoral; Disposition: 06/25/20 06:19 Hospitalization ordered by Estella Mcdonnell for Inpatient Admission. Preliminary diagnosis are Acute and chronic respiratory failure with hypoxia, Other pneumonia, unspecified organism, Coronavirus infection, unspecified. - Bed requested for [email or web address] ER HOLD. - Status is Inpatient Admission. aa5 - Condition is Guarded. - Problem is new. - Symptoms are unchanged. Signatures: Dispatcher [employer] EDMS Alisa Godwin Stephanie RN Avery Shukla RN RN sg Fletcher Pruitt MD MD cha Waters, Shelly, FIRMWARE MANAGER-C FIRMWARE MANAGER-Csnw Brad Hernández MD MD rn Calderon, Audri, RN RN aa5 Landon Gama Terrence, MD MD tw4 Brandon Noonan RN RN mg2 Jah Alfredo RN RN rv Corrections: (The following items were deleted from the chart) 06/25 08:48 06:19 Hospitalization Ordered by Estella Mcdonnell MD for Inpatient Admission. Preliminary bd diagnosis is Acute and chronic respiratory failure with hypoxia; Other pneumonia, unspecified organism; Coronavirus infection, unspecified. Bed requested for Intensive Care Unit. Status is Inpatient Admission. Condition is Guarded. Problem is new. Symptoms are unchanged. tw4 09:26 09:26 Potassium Chloride 20 mEq IV at per protocol once; administer over 1-2 hours sv ordered. [facility] 11:47 05:32 [facility] [phone]/ ordered. tw4 sv 06/26 18:55 08 08:48 06/25/2020 06:19 Hospitalization Ordered by Estella Mcdonnell MD for Inpatient aa5 Admission. Preliminary diagnosis is Acute and chronic respiratory failure with hypoxia; Other pneumonia, unspecified organism; Coronavirus infection, unspecified. Bed requested for [facility] [[email or web address] ER HOLD. Status is Inpatient Admission. Condition is Guarded. Problem is new. Symptoms are unchanged. bd
--- NOTE | 2020-06-25 06:20 | ER ---
Nurse's Notes [facility] Adeline Name: Dulce Cerna Age: 64 yrs Sex: Female : 1955 Arrival Date: 06/25/2020 Time: 05:23 Bed 9 Private MD: Diagnosis: Acute and chronic respiratory failure with hypoxia;Other pneumonia, unspecified organism;Coronavirus infection, unspecified Presentation: 06/25 05:30 Chief complaint: EMS states: Pt toned for shortness of breath, cough and dyspnea. Pt wh was just swabbed for Covid yesterday. Per EMS Pt kim were low at home but was able to get it to 90's on 4LNC. Coronavirus screen: Client denies travel out of the [place] in the last 14 days. cough unrelated to allergies, difficulty breathing, shortness of breath, Client presents with at least one sign or symptom that may indicate coronavirus-19. Standard/surgical mask placed on the client. Provider contacted for isolation considerations. The client indicates previous COVID test results are pending. Ebola Screen: Patient negative for fever greater than or equal to 101.5 degrees Fahrenheit, and additional compatible Ebola Virus Disease symptoms Patient denies exposure to infectious person. Initial Sepsis Screen: Does the patient meet any 2 criteria? RR > 20 per min. Does the patient have a suspected source of infection? Yes: Productive cough/pneumonia. Risk Assessment: Do you want to hurt yourself or someone else? Patient reports no desire to harm self or others. Onset of symptoms is unknown. 05:30 Method Of Arrival: EMS: [facility] 05:30 Acuity: TRACY 2 wh Historical: - Allergies: 06:28 "pain pills"; 06:28 PENICILLINS; 06:28 Sulfa (Sulfonamide Antibiotics); wh - PMHx: 06:28 addisons; Chronic pain; Depression; Early Dementia; Hyperlipidemia; Irritable bowel wh syndrome; TIA; - Immunization history:: Adult Immunizations unknown. - Social history:: Smoking status: Patient/guardian denies using. Screenin:28 Abuse screen: Denies threats or abuse. Denies injuries from another. Nutritional wh screening: No deficits noted. Tuberculosis screening: No symptoms or risk factors identified. Fall Risk None identified. Assessment: 05:35 General: Appears distressed, Behavior is appropriate for age. Pain: Denies pain. Neuro: wh Level of Consciousness is awake, alert, obeys commands, Oriented to person, place, time, situation, Appropriate for age. Cardiovascular: Heart tones S1 S2 Rhythm is regular. Respiratory: Reports shortness of breath cough that is labored breathing since this morning Airway is patent Respiratory effort is labored, Respiratory pattern is tachypnea Breath sounds are diminished bilaterally. GI: Abdomen is flat, non-distended. : Genitalia appear normal. EENT: No deficits noted. Derm: Skin is intact, is healthy with good turgor, Skin is pink, warm \\T\\ dry. normal. Musculoskeletal: Circulation, motion, and sensation intact. 05:40 Reassessment: Pt was placed on NRB at 15L still dyspneic with sats at 95%, MD was wh notified and Pt was placed on room 3. 05:45 Reassessment: ABG was done, plan for intubation. 05:55 Reassessment: Etomidate 20 and Succ 100 administered. 06:00 Reassessment: Succesful Intubation done By Prasanna TREADWELL. 06:10 Reassessment: NGT and Gonzales was inserted. 06:30 Reassessment: Et tube was pulled back 2 cm from 25 now at 23. 07:00 General: Appears in no apparent distress. well developed, Behavior is restless, pt is sv intubated and sedated. Pain: Unable to use pain scale. FLACC scale score is 0 out of 10. Neuro: Level of Consciousness is unresponsive, intubated. Cardiovascular: Pulses are palpable in right radial artery and left radial artery. Respiratory: Airway via oral intubation Respiratory effort is even, unlabored, Respiratory pattern is symmetrical, tachypnea. GI: Oral gastric tube in place, to suction. : Gonzales in place to gravity drainage Criticore. Derm: Skin is normal, Skin temperature is hot Bruising that is dark purple, on left hand. Musculoskeletal: Swelling present in left hand. 07:30 Respiratory: Ventilator assessment: ET Tube: 7.5 24 teeth Ventilator Mode: Assist sv Control (AC) Tidal Volume: 440 Respiratory Rate: 16 FiO2: 60% PEEP: 5 HOB > 30 degrees. Patient repositioned to supine position. Suction provided. 07:41 Respiratory: Ventilator assessment: ET Tube:. rv 08:00 Reassessment: Patient appears in no apparent distress at this time. Pt remains sv intubated and sedated. Pt appears to be more calm at this time. Will continue to monitor. 08:55 Reassessment: Repeat lactate sent to outside lab. sv 09:02 Reassessment: Yashira Buitrago (sister) [phone]. sv 10:11 Reassessment: Patient appears in no apparent distress at this time. Pt remains sv intubated and sedated. Joy from RT switching pt's vent at this time. 10:30 Respiratory: Ventilator assessment: ET Tube: 7.5 24 teeth Ventilator Mode: Assist sv Control (AC) Tidal Volume: 420 Respiratory Rate: 14 Pressure Support: 45 HOB > 30 degrees. 04 07:25 Reassessment: pt HR remains 150 afib RVR, pt reading a book at this time, complaining sg of only a headache, pt medicated as ordered, see EMAR. 07:35 Reassessment: pt VS remain the same, pt medicated as ordered with 2nd dose of sg Metoprolol, see EMAR. 07:55 Reassessment: pt remains HR 148 afib RVR on bedside monitor, pt medicated with last sg dose of IV metoprolol, see EMAR. Vital Signs: /03 05:30 BP 173 / 115; Pulse 87; Resp 24; Pulse Ox 92% 15 lpm ; Weight 80 kg; wh 06:00 BP 176 / 96; Pulse 88; Resp 24; Temp 104; Pulse Ox 95% on 100% FiO2 ETT vent; wh 06:09 BP 148 / 115; Pulse 111; Resp 16; Pulse Ox 99% on 100% FiO2 ETT vent; wh 06:30 BP 191 / 78; Pulse 86; Resp 16; Pulse Ox 97% on 100% FiO2 ETT vent; wh 07:00 BP 200 / 81; Pulse 106; Resp 26; Temp 103.8(C); Pulse Ox 99% on ETT vent; sv 08:05 BP 150 / 68; Pulse 85; Resp 26; Temp 102.6(C); Pulse Ox 100% on ETT vent; sv 09:02 BP 145 / 61; Pulse 81; Resp 18; Temp 100.8(C); Pulse Ox 100% on 60% FiO2 ETT vent; sv 10:02 Height 5 ft. 3 in. (160.02 cm); sv 10:02 BP 139 / 68; Pulse 76; Resp 16; Temp 100.8; Pulse Ox 100% on 60% FiO2 ETT vent; sv 10:02 Body Mass Index 31.24 (80.00 kg, 160.02 cm) sv Mariana Coma Score: 05:35 Eye Response: spontaneous(4). Verbal Response: oriented(5). Motor Response: obeys commands(6). Total: 15. 06:30 Eye Response: none(1). Verbal Response: none(1). Motor Response: none(1). Modifying wh Factors: Intubated. Total: 3. ED Course: 05:23 Patient arrived in ED. cl3 05:30 Ezekiel Preston MD is Attending Physician. tw4 05:30 Arm band placed on right wrist. wh 05:30 Patient has correct armband on for positive identification. Placed in gown. Bed in low wh position. Call light in reach. Side rails up X 1. ground systems engineer on. Pulse ox on. NIBP on. 05:30 Inserted saline lock: 20 gauge in left EJ, using aseptic technique. ,using aseptic rv technique. by DR PRESTON. 05:50 EKG done, by ED staff, reviewed by Ezekiel Preston MD. wh 05:58 CXR XRAY In Process Unspecified. EDMS 06:00 Triage completed. wh 06:00 Inserted powerglide [id number] right upper arm. rv 06:00 Gonzales cath inserted, using sterile technique, 16 Fr., by wy, balloon inflated, to rv gravity drainage. 06:00 Assisted provider with intubation using via oral route. ET tube secured at 23cm at the lips. Set up intubation tray. Intubated by Ezekiel Preston MD Placement verified by CO2 detector w/ + color change, auscultating bilateral breath sounds, CXR, Patient tolerated well. 06:02 Initial lab(s) drawn, by me, sent to lab. First set of blood cultures drawn by me. wh 06:10 NGT: inserted 16 Fr. via left nare. verified placement of air over stomach, verified wh return of gastric contents, to intermittent suction. Returned gastric contents. Patient tolerated well. 06:19 Estella Mcdonnell MD is Hospitalizing Provider. tw4 06:20 Second set of blood cultures drawn by wy. wh 06:40 Notified ED physician of a critical lab result(s). Lactate elevated. 06:51 CXR XRAY In Process Unspecified. EDMS 07:34 Attending Physician role handed off by Ezekiel Preston MD [facility] 07:34 Fletcher Pruitt MD is Attending Physician. christ 07:36 Barbara Guillaume, RN is Primary Nurse. sv 08:10 Assisted provider with central line placement. Set up central line tray. Triple lumen sv line placed in right femoral. Line placed by Fletcher Pruitt MD Placement verified by blood return, Dressed with Tegaderm, Patient tolerated well. Before procedure, did Practitioner(s) obtain informed consent? No. Patient \\T\\ family education about procedure, CLABSI prevention and S/S of infection? No. Time-out/Briefing performed prior to start of procedure? Yes. Was handwashing/sanitizing done immediately prior to procedure? Yes. Was patient positioned to in a way to prevent air embolism? Yes. Was procedure site sterilized? Yes, with chlorhexidine. Was the site allowed to dry? Yes. Was local anesthetic and/or sedation utilized? Yes. During the procedure, did the Practitioner(s) maintain a sterile field? Yes. Were unused ports clamped during insertion? Yes. Was a 2nd qualified MD obtained after 3 unsuccessful insertion attempts? Yes. Was blood aspirated from each lumen? Yes. After the procedure, did the Practitioner(s) clean the site and apply a sterile dressing? Yes. 08:15 IV discontinued, intact, No redness/swelling at site. Midline to the right upper arm sv d/c'd d/t not flushing. 09:27 LAB Add On Sent. sv 10:51 Report given to Teodora PAIGE. sv 11:46 Urine Dipstick--Ancillary (enter results) Sent. sv 18:50 Primary Nurse role handed off by Barbara Guillaume, ROYAL sv 19:31 Brandon Noonan, ROYAL is Primary Nurse. mg2 Restraints: 07:15 Non-Violent Restraint: Order obtained. Initiated on June 25, 2020 at 07:15 Unable to sv provide Restraint education. Pt intubated and sedated. Not able to follow commands.. Actions/Behavior observed: Confused/disoriented, has difficulty remembering/follow instructions, has impaired decision making, has decreased level of consciousness, unable to follow instructions, repeated attempts to remove/tamper lines/tubes/IV med devices \\T\\ wound dressing, Less restrictive alternatives attempted: decrease environmental stimuli, placed near Nurse station, reoriented to location, medications evaluated, medicated for pain/anxiety, lines/tubes covered, eliminated unnecessary lines/tubes, verbal de-escalation performed, Alternative interventions: Ineffective. Clinical justification for use: airway protection, line protection, patient safety, Mental status: agitated/restless, Cognition: Unable to assess. poor judgement, poor safety awareness, impulsive, poor attention/concentration, unable to follow commands, Circulation: Within defined parameters (based on Cardiovascular assessment) Skin integrity: Within defined parameters (based on Integumentary assessment) Signs of injury related to restraint: No injuries noted. Elimination/Hygiene: with urinary catheter, Restraint status: Side rails up x 4 Started. Soft wrist restraint (Right) Started. Soft wrist restraint (Left) Started. Criteria to discontinue Restraint not met. Restraint continued. 09:15 Non-Violent Restraint: Actions/Behavior observed: Confused/disoriented, has difficulty sv remembering/follow instructions, has impaired decision making, has decreased level of consciousness, unable to follow instructions, repeated attempts to remove/tamper lines/tubes/IV med devices \\T\\ wound dressing, Less restrictive alternatives attempted: decrease environmental stimuli, placed near Nurse station, reoriented to location, medications evaluated, medicated for pain/anxiety, lines/tubes covered, eliminated unnecessary lines/tubes, verbal de-escalation performed, Alternative interventions: Ineffective. Clinical justification for use: airway protection, line protection, patient safety, Mental status: patient asleep, Cognition: Unable to assess. poor judgement, poor safety awareness, impulsive, poor attention/concentration, unable to follow commands, Circulation: Within defined parameters (based on Cardiovascular assessment) Skin integrity: Within defined parameters (based on Integumentary assessment) Signs of injury related to restraint: No injuries noted. Range of Motion (ROM): patient asleep. Hydration/Food: patient asleep. Elimination/Hygiene: Patient asleep. with urinary catheter, Restraint status: Side rails up x 4 Continued. Soft wrist restraint (Right) Continued. Soft wrist restraint (Left) Continued. Criteria to discontinue Restraint not met. Restraint continued. Administered Medications: 05:53 Drug: Etomidate 20 mg {Note: Administered by Tawny LEÓN} Route: IVP; Site: left jugular;wh 07:00 Follow up: Response: No adverse reaction sv 05:55 Drug: Succinylcholine 100 mg {Note: Administered by Tawny LEÓN} Route: IVP; Site: left wh jugular; 07:00 Follow up: Response: No adverse reaction sv 06:00 Drug: Tylenol Suppository 10 mg/kg Route: TX; rv 07:00 Follow up: Response: No adverse reaction sv 06:35 Drug: Versed 4 mg {Note: Administered by David Alfredo RN.} Route: IVP; Site: left wh jugular; 07:00 Follow up: Response: No adverse reaction sv 07:00 Drug: Decadron - Dexamethasone 10 mg Route: IVP; Site: left jugular; rv 08:00 Follow up: Response: No adverse reaction sv 07:00 Drug: Lovenox 1 mg/kg Route: Sub-Q; Site: abdomen; rv 07:30 Follow up: Response: No adverse reaction sv 07:19 Drug: AZITHromycin 500 mg Route: IVPB; Infused Over: 1 hrs; Site: left jugular; rv 09:46 Follow up: Response: No adverse reaction; IV Status: Completed infusion; IV Intake: sv 250ml 07:50 Drug: Pepcid 20 mg Route: IVP; Site: left jugular; sv 09:08 Follow up: Response: No adverse reaction sv 07:53 Drug: Solu-CORTEF 100 mg Route: IVP; Site: left jugular; sv 08:00 Follow up: Response: No adverse reaction sv 08:18 Drug: Midazolam 0.1 mg/kg/h {Note: started at 0.5 mg/hr per Dr Pruitt.} Route: IVP; sv Site: right femoral; 11:47 Follow up: Response: No adverse reaction sv 08:19 Drug: vancoMYCIN 1 grams Route: IVPB; Infused Over: 2 hrs; Site: right femoral; sv 09:46 Follow up: Response: No adverse reaction; IV Status: Completed infusion; IV Intake: sv 250ml 08:23 Drug: NS 0.9% 1000 ml Route: IV; Rate: 1000 ml; Site: right femoral; sv 09:07 Follow up: Response: No adverse reaction; IV Status: Completed infusion; IV Intake: sv 1000ml 08:23 Drug: NS 0.9% 1000 ml Route: IV; Rate: 1000 ml; Site: right femoral; sv 09:07 Follow up: Response: No adverse reaction; IV Status: Completed infusion; IV Intake: sv 1000ml 09:07 Drug: NS 0.9% 1000 ml Route: IV; Rate: 125 ml/hr; Site: right femoral; sv 11:27 Follow up: Response: No adverse reaction; IV Status: Infusion continued upon admission sv 09:26 CANCELLED (Duplicate Order): Potassium Chloride 20 mEq IV at per protocol once; sv administer over 1-2 hours 09:45 Drug: Potassium Chloride 20 mEq Route: IV; Rate: per protocol; Site: right femoral; sv 11:27 Follow up: Response: No adverse reaction; IV Status: Infusion continued upon admission sv 11:27 Not Given (to be given and documented in [facility]): Potassium Chloride 20 mEq IV at sv calculated rate once; administer over 1-2 hours 08 07:25 Drug: Metoprolol 5 mg {Note: as ordered by Dr. Valdez, Hospitalist -phone order.} mg2 Route: IVP; Site: right femoral; 07:35 Drug: Metoprolol 5 mg Route: IVP; Site: right femoral; aa5 07:55 Drug: Metoprolol 5 mg Route: IVP; Site: right femoral; sg Intake: 03 09:07 IV: 1000ml; Total: 1000ml. sv 09:07 IV: 1000ml; Total: 2000ml. sv 09:46 IV: 250ml; Total: 2250ml. sv 09:46 IV: 250ml; Total: 2500ml. sv Output: 07:30 Urine: 1300ml (Gonzales); Total: 1300ml. sv 09:47 Urine: 1700ml (Gonzales); Total: 3000ml. sv Outcome: 06:19 Decision to Hospitalize by Provider. tw4 10:51 Admitted to ER Hold. Please see [facility] for further documentation. sv 10:51 Condition: stable 10:51 Instructed on the need for admit. Signatures: Dispatcher [employer] Barbara Breaux RN RN sv Avery Guevara RN RN sg Anderson, Corey, MD MD cha Calderon, Audri, RN RN aa5 Landon Gama Terrence, MD MD tw4 Brandon Noonan, RN RN mg2 Jah Alfredo RN RN Nirav Godfrey cl3 Corrections: (The following items were deleted from the chart) 06:38 06:37 Reassessment: Pt was placed on NRB at 15L still dyspneic with sats at 95%, MD was notified and Pt was placed on room 3 06:41 06:05 Reassessment: Succesful Intubation done By Prasanna TREADWELL [facility] 06:46 06:00 BP 176 / 96; Pulse 88bpm; Resp 24bpm; Pulse Ox 95% FiO2 100% vent; [facility] 06:47 05:30 BP 173 / 115; Pulse 87bpm; Resp 24bpm; Pulse Ox 92% 15 lpm; [facility] 07:06 05:45 Reassessment: ABD was done, plan for intubation [facility] 06/26 18:58 18:55 Patient left the ED. aa5 aa5
[2020-06-25 06:22] LABS: Absolute Lymphocytes (CBC) 1.9 K/uL (0.7-4.9); Basophils % 0.5 % (0-1.3); Hematocrit 34.4 % (36.0-45.0); Lymphocytes % 13.8 % (15.3-44.8); MPV 9.3 fL (7.6-11.3); RBC Red Blood Cell Count 4.09 M/uL (3.86-4.86)
[2020-06-25] MEDS ORDERED: MIDAZOLAM HCL 2 MG/2 ML INJ ONE (06:45)
[2020-06-25] MEDS ORDERED: ACETAMINOPHEN 650MG/RECT SUPP PR ONE (06:57)
[2020-06-25] MEDS ORDERED: dexAMETHasone 10 MG/ML VIAL ONE (07:05)
[2020-06-25] MEDS ORDERED: AZITHROMYCIN 500 MG INJ IVPB ONE (07:05)
[2020-06-25] MEDS ORDERED: NA CHLORIDE 0.9% 250 ML ONE (07:05)
[2020-06-25] MEDS ORDERED: ENOXAPARIN 80 MG/0.8 ML SQ ONE (07:05)
--- NOTE | 2020-06-25 07:08 | RAD REPORT ---
EXAM DESCRIPTION: RAD - Chest Single View - 06/25/2020 5:57 am CLINICAL HISTORY: SOB, respiratory distress COMPARISON: Portable June 06, 2020 TECHNIQUE: AP portable chest image was obtained 06/25/2020 5:57 am . FINDINGS: Large masslike consolidation has developed in the lower right lung field and right perihil ar region. Lung volumes are low accentuating overall lung pattern. No cavitation identified. Minimal patchy opacification in the mid and lower left lung field is seen far less than present on the right. Heart and vasculature are normal. No measurable pleural effusion and no pneumothorax. No acute bony abnormality seen. No acute aortic findings suspected. IMPRESSION: Large masslike consolidation involving much of the mid and lower right lung field. Patch y left opacification also present. The predominately one sided rapid formation would indicate bacterial pneumonia as the most likely jerilyn ology.
[2020-06-25 07:09] LABS: Arterial Blood Carboxyhemoglob 1.3 % (0-1.5); Blood Gas Oxyhemoglobin 91.9 % (94-97); Blood O2 Saturation 93.9 % (92-98.5)
--- NOTE | 2020-06-25 07:12 | RAD REPORT ---
EXAM DESCRIPTION: RAD - Chest Single View - 06/25/2020 6:51 am CLINICAL HISTORY: POST ETT, respiratory distress COMPARISON: Portable June 25 TECHNIQUE: AP portable chest image was obtained in supine positioning 06/25/2020 6:51 am . FINDINGS: Endotracheal tube has been placed. Tip is at the aortic arch level 1-2 centimeter superior to the julieta. NG tube has been placed. Tip extends below the diaphragm, off the field of view. Right perihilar and right lower lung field masslike consolidation is present. Air bronchograms are se en. Respiratory motion degradation is present. The dense masslike consolidation in the right lung fie ld, new from June 06, is most likely bacterial pneumonia. Pattern is not the usual COVID-19 infection presentation. Heart and vasculature are normal. No measurable pleural effusion and no pneumothorax. No acute bony abnormality seen. No acute aortic findings suspected. IMPRESSION: Endotracheal tube has been placed. Tip is aortic arch level 2 cm above the julieta. NG tu be extends below the diaphragm. Masslike consolidation in the perihilar and lower lung field on the right is most likely bacterial pn eumonia. Malignant etiology is not suspected given the rapid onset. Pattern is not the most common COVID-19 pr esentation. Aspiration pneumonia is lesser in likelihood.
[2020-06-25 07:29] LABS: ALT/SGPT 25 U/L (12-78); AST/SGOT 17 U/L (15-37); Albumin 3.2 g/dL (3.4-5.0); Alkaline Phosphatase 79 U/L (45-117); BUN Blood Urea Nitrogen 14 mg/dL (7-18); Bicarbonate 32 mmol/L (21-32); Bilirubin Direct 0.1 mg/dL (0-0.2); Bilirubin Total 0.3 mg/dL (0.2-1.0); Glucose Level 142 mg/dL (74-106); Lipase 43 U/L (73-393); Protein, Total 6.9 g/dL (6.4-8.2); Sodium Level 139 mmol/L (136-145); Troponin (Emerg Dept Use Only) < 0.02 ng/mL (0.0-0.045)
[2020-06-25 07:30] LABS: Potassium 2.7 mmol/L (3.5-5.1)
[2020-06-25] MEDS ORDERED: MIDAZOLAM HCL 100 MG in NA CHLORIDE 0.9% 80 ML IV PRN (07:30)
[2020-06-25 07:37] LABS: Protime INR 1.13
[2020-06-25] MEDS ORDERED: HYDROCORTISONE SUC 100 MG INJ ONE ×2 (07:49→21:39)
[2020-06-25] MEDS ORDERED: FAMOTIDINE 20 MG/2 ML VIAL IV ONE (07:49)
[2020-06-25] MEDS ORDERED: WATER FOR INJ,STERILE 10 ML ONE (07:49)
[2020-06-25] MEDS ORDERED: VANCOMYCIN/NS 1 gm 1 GM/250 ML BAG IV ONE (08:00)
[2020-06-25] MEDS ORDERED: ONDANSETRON 4 MG/2 ML VIAL IV PRN (08:37)
[2020-06-25] MEDS ORDERED: LORazepam 2 MG/ML VIAL IV PRN (08:42)
[2020-06-25] MEDS ORDERED: FENTANYL CITR 100 MCG/2 ML IV PRN (08:42)
--- NOTE | 2020-06-25 08:50 | P.HP ---
Certification for Inpatient Patient admitted to: Inpatient With expected LOS: >2 Midnights Patient will require the following post-hospital care: None Practitioner: I am a practitioner with admitting privileges, knowledge of patient current condition, hospital course, and medical plan of care. Services: Services provided to patient in accordance with Admission requirements found in Title 42 Section 412.3 of the Code of Federal Regulations Patient History Date of Service: 06/25/20 Reason for admission: RESPIRATORY FAILURE/ RIGHT LOWER LOBE PNEUMO History of Present Illness: Patient is a 64-year-old female who came to the hospital in respiratory distress. She was hypoxic and tachypneic. In the emergency room, emergency room physician intubated the patient. Patient will be admitted to the hospital for further evaluation. Patient was in the hospital about a month ago with pneumonia as well. At that time her COVID-19 test came back negative. Her ABGs on 100% non-rebreather showed hypoxemia. Otherwise no abnormalities noted. Patient may need CT scan for further evaluation of PE. Pulmonary consultation will also be obtained. Unable to get a history from the patient as she is intubated and sedated. Allergies Penicillins Allergy (Verified 03/16/19 23:40) Shortness of breath Sulfa (Sulfonamide Antibiotics) [Sulfa(Sulfonamide Antibiotics)] Allergy (Verified 03/16/19 23:40) Shortness of breath NSAIDS Adverse Reaction (Uncoded 03/16/19 23:40) Kidney Problems Home Medications: Amitriptyline HCl 100 mg PO BEDTIME 06/25/20 Aspirin [Aspirin EC 81 MG] 81 mg PO DAILY 06/25/20 Duloxetine HCl [Cymbalta] 120 mg PO DAILY 06/25/20 Fludrocortisone [Florinef *] 0.2 mg PO DAILY 06/25/20 Hydrocortisone [Cortef*] 10 mg PO SEECOM 06/25/20 Hydrocortisone [Cortef*] 20 mg PO BREAKFAST 06/25/20 Lactobacillus Combination No.4 [Probiotic] 1 cap PO 1400 06/25/20 Levothyroxine Sodium 0.25 mg PO DAILY 06/25/20 Melatonin 10 mg PO BEDTIME PRN PRN 06/25/20 Metoprolol Tartrate [Lopressor*] 50 mg PO BID 06/25/20 Omeprazole 20 mg PO DAILY 06/25/20 Oxycodone HCl [Oxycontin] 10 mg PO TID 06/25/20 Promethazine HCl 25 mg PO BIDP PRN 06/25/20 Rivaroxaban [Xarelto] 20 mg PO 1700 06/25/20 Rosuvastatin [Crestor*] 10 mg PO DAILY 06/25/20 Tizanidine HCl [Zanaflex] 2 mg PO DAILYPRN PRN 06/25/20 Valerian Root Extract [Valerian] 150 mg PO BEDTIME 06/25/20 Zaleplon 10 mg PO BEDTIME 06/25/20 clonazePAM [Clonazepam] 1 mg PO BIDP PRN 06/25/20 estradioL [Estradiol] 2 mg PO BEDTIME 06/25/20 - Past Medical/Surgical History Diabetic: No -: Erath's -: Irritable Bowel Syndrome -: TIA -: Chronic back pain -: hyperlipidemia -: CVA -: hypothyroidism -: Cholecystectomy -: Appy -: -: Hysterectomy -: Explore Lap - Family History Mother Medical History: Stroke, Other (see notes) Notes: Asthma. Rheumatoid Arthritis - Social History Alcohol use: No CD- Drugs: No Caffeine use: Yes Review of Systems is unable to be obtained Physical Examination - Vital Signs Temperature: 99 F Blood Pressure: 140/80 Pulse: 80 Respirations: 18 Pulse Ox (%): 92 - Physical Exam General: Other ( Intubated and sedated) HEENT: Atraumatic, Normocephalic Neck: Supple, 2+ carotid pulse no bruit, JVD not distended, No Thyromegaly Respiratory: Expiratory wheezes Cardiovascular: Regular rate/rhythm, Normal S1 S2, Systolic murmur Gastrointestinal: Normal bowel sounds, Soft and benign, Non-distended, No tenderness Musculoskeletal: No clubbing, No swelling Integumentary: Other ( some bruising noted) Neurological: Other ( patient moving all extremities. Pupils are equal and reactive. Otherwise patient not really able to the follow commands as she is intubated and sedated.) - Studies Laboratory Data (last 24 hrs) 06/25/20 06:30: PT 13.3 H, INR 1.13, APTT 28.8 06/25/20 06:00: WBC 13.6 H, Hgb 11.5 L, Hct 34.4 L, Plt Count 233 06/25/20 06:00: Sodium 139, Potassium 2.7 L*, BUN 14, Creatinine 0.92, Glucose 142 H, Total Bilirubin 0.3, AST 17, ALT 25, Alkaline Phosphatase 79, Lipase 43 L Assessment & Plan - Problems (Diagnosis) (1) Right lower lobe consolidation Current Visit: Yes Status: Acute (2) Right middle lobe pneumonia Current Visit: Yes Status: Acute (3) H/O: CVA (cerebrovascular accident) Current Visit: Yes Status: Acute (4) Hyperlipidemia Current Visit: Yes Status: Acute (5) HTN (hypertension) Current Visit: Yes Status: Acute (6) 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 Continue with IV antibiotics 2. Awaiting sputum and blood culture; procalcitonin level 3. Repeat chest x-ray in AM 4. Will order CT scan of the chest 5. Respiratory isolation 6. Continue with nebs as needed 7. O2 per protocol 8. Continue with gentle hydration 9. Repeat labs including CBC and renal function in a.m. 10. Pulmonary Consultation 11. IV asteroids 10. BP control 11. GI and DVT prophylaxis Discharge Plan: Home Plan to discharge in: Greater than 2 days - Advance Directives Does patient have a Living Will: Yes Does patient have a Durable POA for Healthcare: No - Code Status/Comfort Care Code Status Assessed: Yes Code Status: Full Code Critical Care: No Time Spent Managing PTS Care (In Minutes): 60
[2020-06-25] MEDS: NA CHLORIDE 0.9% 1,000 ML IV SCH ×2 (09:00→22:20)
[2020-06-25] MEDS: ENOXAPARIN 40 MG/0.4 ML SQ SCH (09:00)
[2020-06-25] MEDS ORDERED: HYDROCORTISONE SUC 100 MG INJ IV ONE (09:02)
[2020-06-25] MEDS ORDERED: KCL 20 MEQ/100 mL IVPB 20 MEQ/100 ML BAG IV ONE ×4 (09:38→22:23)
[2020-06-25 09:40] LABS: Phosphorus 3.4 mg/dL (2.5-4.9)
[2020-06-25] MEDS ORDERED: SUCCINYLCHOLINE 20 MG/ML (10 ML) IV ONE (10:25)
[2020-06-25] MEDS ORDERED: ETOMIDATE 20 MG/10 ML VIAL IV ONE (10:25)
[2020-06-25 10:56] LABS: Urine Blood 1+ (NEG); Urine Glucose NEGATIVE (NEG); Urine Protein NEGATIVE (NEG); Urine Specific Gravity 1.015 (1.005-1.030)
[2020-06-25] MEDS ORDERED: VITAL AF 1,000 ML BOT RTH SCH (11:00)
[2020-06-25] MEDS ORDERED: KCL 20 MEQ/100 mL IVPB 20 MEQ/100 ML BAG IV SCH (11:00)
[2020-06-25] MEDS: Levofloxacin 750mg IV 750 MG/150 ML BAG IV SCH (13:00)
[2020-06-25] MEDS ORDERED: Levofloxacin 750mg IV 750 MG/150 ML BAG IV ONE (13:22)
[2020-06-25] MEDS: IPRATROPIUM BROM 0.5MG/2.5ML NEB SCH ×2 (15:50→19:28)
[2020-06-25] MEDS ORDERED: ALBUTEROL 2.5 MG/3 ML NEB SOL ONE ×2 (15:50→19:40)
[2020-06-25] MEDS ORDERED: IPRATROPIUM BROM 0.5MG/2.5ML ONE ×2 (15:50→19:39)
[2020-06-25] MEDS: ALBUTEROL 2.5 MG/3 ML NEB SOL NEB SCH ×2 (15:50→19:28)
--- NOTE | 2020-06-25 16:18 | P.CNS ---
Date of Consult: 06/25/20 Chief Complaint: RESPIRATORY FAILURE/ RIGHT LOWER LOBE PNEUMO History of Present Illness: Early this am .2 days good. W/u this am fever/ Hx of recurrent pneumonia patient has a history of recurrent ammonia was just admitted in May 26 was discharged on a course of antibiotics patient was admitted intubated Allergies Penicillins Allergy (Verified 03/16/19 23:40) Shortness of breath Sulfa (Sulfonamide Antibiotics) [Sulfa(Sulfonamide Antibiotics)] Allergy (Verified 03/16/19 23:40) Shortness of breath NSAIDS Adverse Reaction (Uncoded 03/16/19 23:40) Kidney Problems Home Medications: Amitriptyline HCl 100 mg PO BEDTIME 06/25/20 Aspirin [Aspirin EC 81 MG] 81 mg PO DAILY 06/25/20 Duloxetine HCl [Cymbalta] 120 mg PO DAILY 06/25/20 Fludrocortisone [Florinef *] 0.2 mg PO DAILY 06/25/20 Hydrocortisone [Cortef*] 10 mg PO SEECOM 06/25/20 Hydrocortisone [Cortef*] 20 mg PO BREAKFAST 06/25/20 Lactobacillus Combination No.4 [Probiotic] 1 cap PO 1400 06/25/20 Levothyroxine Sodium 0.25 mg PO DAILY 06/25/20 Metoprolol Tartrate [Lopressor*] 50 mg PO BID 06/25/20 Omeprazole 20 mg PO DAILY 06/25/20 Oxycodone HCl [Oxycontin] 10 mg PO TID 06/25/20 Rivaroxaban [Xarelto] 20 mg PO 1700 06/25/20 Rosuvastatin [Crestor*] 10 mg PO DAILY 06/25/20 clonazePAM [Clonazepam] 1 mg PO BIDP PRN 06/25/20 estradioL [Estradiol] 2 mg PO BEDTIME 06/25/20 - Past Medical/Surgical History Diabetic: No -: Cotton's -: Irritable Bowel Syndrome -: TIA -: Chronic back pain -: hyperlipidemia -: CVA -: hypothyroidism -: Cholecystectomy -: Appy -: -: Hysterectomy -: Explore Lap - Family History Mother Medical History: Stroke, Other (see notes) Notes: Asthma. Rheumatoid Arthritis - Social History Smoking Status: Former smoker Alcohol use: No CD- Drugs: No Caffeine use: Yes Place of Residence: Home Review of Systems is unable to be obtained Physical Examination Temp Pulse Resp BP Pulse Ox 99.3 F 60 14 151/66 H 100 06/25/20 15:00 06/25/20 15:00 06/25/20 15:00 06/25/20 15:00 06/25/20 15:00 General: Unresponsive Neck: Supple Respiratory: Crackles/rales (Crackles on the right side) Cardiovascular: No edema Laboratory Data (last 24 hrs) 06/25/20 06:30: PT 13.3 H, INR 1.13, APTT 28.8 06/25/20 06:00: WBC 13.6 H, Hgb 11.5 L, Hct 34.4 L, Plt Count 233 06/25/20 06:00: Sodium 139, Potassium 2.7 L*, BUN 14, Creatinine 0.92, Glucose 142 H, Phosphorus 3.4, Total Bilirubin 0.3, AST 17, ALT 25, Alkaline Phosphatase 79, Lipase 43 L - Problems (1) Respiratory failure Current Visit: Yes Status: Acute Plan: Patient is 64 years of age admitted with sudden onset of fever she was found to was significant consolidation on the right side the current history of pneumonia she has had on the left side she was recently admitted on May 26 with again right upper lobe pneumonia was discharged home on Levaquin and doxycycline according the sister was doing fine is woke up with fever patient's white count is minimally elevated pro calcitonin level has been repeatedly negative once the gandhi virus test is available will plan to do some sputum cultures patient also has some fever he appears to have a right-sided consolidation at cefepime patient is at risk for resistant infection issues recently treated with levofloxacin continue with vancomycin resume hydrocortisone patient has Cotton's disease
[2020-06-25] MEDS: KCL 20 MEQ/100 mL IVPB 20 MEQ/100 ML BAG IV SCH ×3 (18:00→22:00)
[2020-06-25] MEDS: propofoL 1,000 MG/100 ML VIAL IV PRN (20:00)
[2020-06-25] MEDS: CEFEPIME/SWI 1gm 10 ML IVP SCH (21:00)
[2020-06-25] MEDS: HYDROCORTISONE SUC 100 MG INJ IV SCH (21:00)
[2020-06-25] MEDS ORDERED: CEFEPIME 1 GM/VIAL IV SCH (21:00)
[2020-06-25] MEDS ORDERED: FENTANYL CITR 100 MCG/2 ML ONE (21:39)
[2020-06-26] MEDS: ALBUTEROL 2.5 MG/3 ML NEB SOL NEB SCH ×4 (00:36→19:58)
[2020-06-26] MEDS: IPRATROPIUM BROM 0.5MG/2.5ML NEB SCH ×4 (00:36→19:58)
[2020-06-26] MEDS ORDERED: ALBUTEROL 2.5 MG/3 ML NEB SOL ONE ×3 (00:46→20:03)
[2020-06-26] MEDS ORDERED: IPRATROPIUM BROM 0.5MG/2.5ML ONE ×3 (00:46→20:03)
[2020-06-26] MEDS: propofoL 1,000 MG/100 ML VIAL IV PRN (01:44)
[2020-06-26] MEDS ORDERED: propofoL 1,000 MG/100 ML VIAL IV ONE (01:45)
[2020-06-26 06:07] LABS: Absolute Lymphocytes (CBC) 0.7 K/uL (0.7-4.9); Basophils % 0.1 % (0-1.3); Hematocrit 26.5 % (36.0-45.0); Lymphocytes % 3.6 % (15.3-44.8); MPV 9.3 fL (7.6-11.3); RBC Red Blood Cell Count 3.18 M/uL (3.86-4.86)
[2020-06-26 07:04] LABS: Albumin 2.5 g/dL (3.4-5.0); Bilirubin Total 0.2 mg/dL (0.2-1.0); Magnesium 1.7 mg/dL (1.8-2.4); Phosphorus 1.9 mg/dL (2.5-4.9); Protein, Total 6.1 g/dL (6.4-8.2)
[2020-06-26 07:07] LABS: Potassium 2.6 mmol/L (3.5-5.1)
[2020-06-26] MEDS ORDERED: METOPROLOL TARTRATE 5 MG/5 ML INJ IV ONE (07:34)
--- NOTE | 2020-06-26 07:34 | P.PN ---
Subjective Date of Service: 06/26/20 Chief Complaint: RESPIRATORY FAILURE/ RIGHT LOWER LOBE PNEUMO Patient self extubated in the early hours of this morning. She was put on Ventimask 5% which she has been tolerating. She appear comfortable. She has no complain. Physical Examination - Vital Signs Temperature: 99 F Blood Pressure: 140/80 Pulse: 80 Respirations: 18 Pulse Ox (%): 92 - Physical Exam General: Alert, In no apparent distress, Oriented x3 HEENT: Mucous membr. moist/pink Neck: Supple, JVD not distended Respiratory: Diminished (On the right.), Crackles/rales (Right) Cardiovascular: No edema, Regular rate/rhythm, Normal S1 S2 Capillary refill: <2 Seconds Gastrointestinal: Normal bowel sounds, Soft and benign, Non-distended, No tenderness Integumentary: No rashes, No erythema Neurological: Normal strength at 5/5 x4 extr Urinary: Gonzales catheter - Studies Laboratory Data (last 24 hrs) 06/25/20 06:30: PT 13.3 H, INR 1.13, APTT 28.8 06/25/20 06:00: Sodium 139, Potassium 2.7 L*, BUN 14, Creatinine 0.92, Glucose 142 H, Phosphorus 3.4, Total Bilirubin 0.3, AST 17, ALT 25, Alkaline Phosphatase 79, Lipase 43 L Microbiology Data (last 24 hrs): 06/25/20 07:05 Nasopharnyx Coronavirus COVID-19 PCR - Final 06/25/20 07:05 Nasopharnyx Influenza Type A Antigen Screen - Final 06/25/20 07:05 Nasopharnyx Influenza Type B Antigen Screen - Final 06/25/20 07:05 Throat Group A Streptococcus Rapid Screen - Final Assessment And Plan - Current Problems (Diagnosis) (1) Acute respiratory failure with hypoxia Current Visit: Yes Status: Acute (2) Right lower lobe consolidation Current Visit: Yes Status: Acute (3) Right middle lobe pneumonia Current Visit: Yes Status: Acute (4) LLL pneumonia Onset Date: 09/08/16 Current Visit: No Status: Acute Qualifiers: (5) Sepsis Current Visit: No Status: Acute Qualifiers: Sepsis type: sepsis due to unspecified organism Qualified Code(s): A41.9 - Sepsis, unspecified organism - Plan Patient self extubated. Titrate oxygen. Pulmonary to follow Continue current antibiotics. Chest physiotherapy Patient is on IV steroid.
[2020-06-26] MEDS ORDERED: POTASSIUM CL SA 10 MEQ TAB PO ONE (07:37)
[2020-06-26] MEDS ORDERED: Ringers Lactate 1,000 ML IV ONE (07:49)
[2020-06-26] MEDS ORDERED: DILTIAZEM INJ 125 MG in NA CHLORIDE 0.9% 100 ML IVPB PRN (07:49)
[2020-06-26] MEDS ORDERED: POTASSIUM CL 40 MEQ in NA CHLORIDE 0.9% 500 ML IV SCH (08:00)
[2020-06-26 08:46] VITALS: BMI 30.9
[2020-06-26] MEDS: HYDROCORTISONE SUC 100 MG INJ IV SCH (09:00)
[2020-06-26] MEDS: ENOXAPARIN 40 MG/0.4 ML SQ SCH (09:00)
[2020-06-26] MEDS: CEFEPIME/SWI 1gm 10 ML IVP SCH ×2 (09:00→20:59)
[2020-06-26] MEDS ORDERED: POTASSIUM 25 MEQ EFFERV TAB ONE (09:11)
[2020-06-26] MEDS ORDERED: HYDROCORTISONE SUC 100 MG INJ ONE (09:11)
[2020-06-26] MEDS ORDERED: ENOXAPARIN 40 MG/0.4 ML SQ ONE (09:12)
[2020-06-26 09:55] LABS: Magnesium 1.6 mg/dL (1.8-2.4); Phosphorus 2.1 mg/dL (2.5-4.9)
[2020-06-26 10:12] LABS: Anisocytosis 1+; Blood Morphology Comment NOTED (NOT SEEN); Platelet Estimate ADEQ; Urine White Blood Cell Casts OK
--- NOTE | 2020-06-26 11:05 | EKG ---
Test Date: 2020-06-25 Test Time: 05:39:52 [facility]: MEASUREMENT RESULTS: Intervals: Rate: 102 MO: 146 QRSD: 78 QT: 390 QTc: 508 [place]: P: 48 MO: 146 QRS: 22 T: 97 INTERPRETIVE STATEMENTS: sinus rhythm,pvcLeft ventricular hypertrophy with repolarization abnormality Abnormal ECG Compared to ECG 05/24/2020 08:38:49 [facility] Electronically Signed On 06-26-20 11:03:00 CDT by Michael Chávez
[2020-06-26] MEDS ORDERED: NA CHLORIDE 0.9% 1,000 ML ONE (11:28)
[2020-06-26] MEDS: NA CHLORIDE 0.9% 1,000 ML IV SCH (11:33)
--- NOTE | 2020-06-26 12:36 | P.PN ---
Subjective Date of Service: 06/26/20 Chief Complaint: RESPIRATORY FAILURE/ RIGHT LOWER LOBE PNEUMO Subjective: Improving (Patient self-extubated she is doing well alert oriented responsive cooperative) Review of Systems General: Weakness Respiratory: Shortness of Breath Physical Examination - Vital Signs Temperature: 100.4 F Blood Pressure: 164/79 Pulse: 78 Respirations: 21 Pulse Ox (%): 97 - Physical Exam General: Alert, In no apparent distress, Oriented x3 Respiratory: Crackles/rales (Crackles on the right side) Cardiovascular: No edema, Regular rate/rhythm - Studies Microbiology Data (last 24 hrs): 06/25/20 07:05 Nasopharnyx Coronavirus COVID-19 PCR - Final 06/25/20 07:05 Nasopharnyx Influenza Type A Antigen Screen - Final 06/25/20 07:05 Nasopharnyx Influenza Type B Antigen Screen - Final 06/25/20 07:05 Throat Group A Streptococcus Rapid Screen - Final Assessment & Plan - Problems (Diagnosis) (1) Respiratory failure Current Visit: Yes Status: Acute Plan: Patient admitted with respiratory failure has a large right hilar infiltrate as not appear to have signs of sepsis she completed the course of levofloxacin and doxycycline plan to do a CT scan of the chest with contrast bronchoscopy patient's white count is mildly elevated
[2020-06-26] MEDS ORDERED: OXYCODONE HCL 5 MG TAB PO SCH (13:00)
[2020-06-26] MEDS ORDERED: MAGNESIUM SULFATE 1 gm IVPB 1 GM/100 ML BAG IV ONE ×2 (13:18→13:53)
[2020-06-26] MEDS ORDERED: POTASSIUM PHOS IN 0.9 % NACL 15 MMOL/250 ML BAG IV ONE (13:20)
[2020-06-26] MEDS: OXYCODONE *CR* 10 MG TAB PO SCH ×2 (13:46→20:58)
[2020-06-26] MEDS: OSELTAMIVIR 75 MG CAP PO SCH ×2 (13:47→20:59)
[2020-06-26] MEDS: Levofloxacin 750mg IV 750 MG/150 ML BAG IV SCH (13:47)
[2020-06-26] MEDS ORDERED: OXYCODONE *CR* 10 MG TAB PO ONE ×2 (13:53→20:22)
[2020-06-26] MEDS ORDERED: OSELTAMIVIR 75 MG CAP ONE ×2 (13:53→20:22)
[2020-06-26] MEDS ORDERED: Levofloxacin 750mg IV 750 MG/150 ML BAG IV ONE (13:54)
[2020-06-26] MEDS ORDERED: HOME MED 1 EA UNK (Oxycodone Hcl [Oxycontin] 10 MG) PO SCH (14:00)
[2020-06-26] MEDS ORDERED: KCL 20 MEQ/100 mL IVPB 20 MEQ/100 ML BAG IV SCH (14:00)
--- NOTE | 2020-06-26 14:09 | RAD REPORT ---
EXAM DESCRIPTION: CT - Thorax W/ Con - 06/26/2020 1:28 pm CLINICAL HISTORY: Chest pain COMPARISON: Chest x-rays and CT scan May 2020 TECHNIQUE: Computed axial tomography of the chest was obtained. 100 cc Isovue 300 was administered i ntravenously. All CT scans are performed using dose optimization technique as appropriate and may include automated exposure control or mA/KV adjustment according to patient size. FINDINGS: Mild ground-glass opacities left lung. Mild tree-in-bud opacities lingula Moderate ground-glass opacities right lung with mild to moderate tree-in-bud opacities right lower lo be No mediastinal or hilar lymphadenopathy is seen. Minimal right pleural effusion. . A pericardial effusion is not seen. IMPRESSION: Moderate right and mild left pulmonary opacities likely pneumonia.
[2020-06-26] MEDS: HYDROCORTISONE 10 MG TAB PO SCH (15:42)
[2020-06-26] MEDS: ACETAMINOPHEN 500 MG TAB PO PRN (17:07)
[2020-06-26] MEDS ORDERED: ACETAMINOPHEN 500 MG TAB ONE (17:16)
[2020-06-26] MEDS ORDERED: METOPROLOL TAR 50 MG TAB ONE (20:22)
[2020-06-26] MEDS ORDERED: LABETALOL 20 MG/4ML SYRINGE IV PRN (20:28)
[2020-06-26] MEDS: METOPROLOL TAR 50 MG TAB PO SCH (20:58)
[2020-06-26] MEDS: AMITRIPTYLINE 50 MG TAB PO SCH (20:59)
[2020-06-26] MEDS ORDERED: HYDROCORTISONE SUC 100 MG INJ IV SCH (21:00)
[2020-06-27] MEDS: ACETAMINOPHEN 500 MG TAB PO PRN
[2020-06-27] MEDS ORDERED: ACETAMINOPHEN 500 MG TAB ONE (00:26)
[2020-06-27] MEDS ORDERED: IPRATROPIUM BROM 0.5MG/2.5ML ONE ×3 (00:45→14:15)
[2020-06-27] MEDS ORDERED: ALBUTEROL 2.5 MG/3 ML NEB SOL ONE ×3 (00:45→14:15)
[2020-06-27] MEDS: IPRATROPIUM BROM 0.5MG/2.5ML NEB SCH ×4 (00:59→19:30)
[2020-06-27] MEDS: ALBUTEROL 2.5 MG/3 ML NEB SOL NEB SCH ×4 (00:59→19:30)
[2020-06-27] MEDS ORDERED: KCL 20 MEQ/100 mL IVPB 20 MEQ/100 ML BAG IV SCH ×3 (02:00→06:00)
[2020-06-27] MEDS ORDERED: KCL 20 MEQ/100 mL IVPB 20 MEQ/100 ML BAG IV ONE (03:43)
[2020-06-27] MEDS ORDERED: OXYCODONE *CR* 10 MG TAB PO ONE ×2 (03:44→15:04)
--- NOTE | 2020-06-27 05:11 | P.PN ---
Subjective Date of Service: 06/27/20 Chief Complaint: RESPIRATORY FAILURE/ RIGHT LOWER LOBE PNEUMO Patient states she feels much better today. She is maintained on oxygen by nasal canula. She is coughing occasionally, no hemoptysis. She has low-grade fever. Physical Examination - Vital Signs Temperature: 98.5 F Blood Pressure: 143/65 Pulse: 67 Respirations: 14 Pulse Ox (%): 93 - Physical Exam General: Alert, In no apparent distress HEENT: Mucous membr. moist/pink Respiratory: Diminished (On the right), Crackles/rales (Bilateral) Cardiovascular: No edema, Regular rate/rhythm, Normal S1 S2 Gastrointestinal: Normal bowel sounds, Soft and benign, No tenderness Musculoskeletal: No swelling, No erythema Integumentary: No rashes Neurological: Other (Nonfocal) Assessment And Plan - Current Problems (Diagnosis) (1) Acute respiratory failure with hypoxia Current Visit: Yes Status: Acute (2) Right lower lobe consolidation Current Visit: Yes Status: Acute (3) Right middle lobe pneumonia Current Visit: Yes Status: Acute (4) LLL pneumonia Onset Date: 09/08/16 Current Visit: No Status: Acute Qualifiers: (5) Sepsis Current Visit: No Status: Acute Qualifiers: Sepsis type: sepsis due to unspecified organism Qualified Code(s): A41.9 - Sepsis, unspecified organism (6) Atrial fibrillation Current Visit: Yes Status: Acute (7) HTN (hypertension) Current Visit: Yes Status: Acute - Plan Continue current antibiotics. Chest physiotherapy Patient is on steroid therapy. She is scheduled for bronchoscopy today. Pulmonary to follow. Patient is currently in sinus rhythm. Replete electrolytes as needed. Keep potassium > 4 and Magnesium > 2. Continue home antihypertensives.
[2020-06-27] MEDS: LEVOTHYROXINE SOD 0.025 MG TAB PO SCH ×2 (05:26→15:49)
[2020-06-27] MEDS: OXYCODONE *CR* 10 MG TAB PO SCH ×3 (05:26→21:06)
[2020-06-27 06:45] LABS: Absolute Lymphocytes (CBC) 2.3 K/uL (0.7-4.9); Basophils % 0.2 % (0-1.3); Hematocrit 24.7 % (36.0-45.0); Lymphocytes % 15.4 % (15.3-44.8); MPV 9.4 fL (7.6-11.3); RBC Red Blood Cell Count 2.95 M/uL (3.86-4.86)
[2020-06-27 06:52] LABS: BUN Blood Urea Nitrogen 7 mg/dL (7-18); Bicarbonate 34 mmol/L (21-32); Glucose Level 87 mg/dL (74-106); Magnesium 2.1 mg/dL (1.8-2.4); Sodium Level 143 mmol/L (136-145)
[2020-06-27 06:54] LABS: Potassium 2.6 mmol/L (3.5-5.1)
[2020-06-27] MEDS ORDERED: POTASSIUM PHOS IN 0.9 % NACL 15 MMOL/250 ML BAG IV ONE (08:00)
[2020-06-27] MEDS ORDERED: KCL 20 MEQ/100 mL IVPB 60 MEQ/300 ML BAG IV ONE (08:23)
--- NOTE | 2020-06-27 08:23 | RAD REPORT ---
EXAM DESCRIPTION: Dasia Single View06/27/2020 6:33 am CLINICAL HISTORY: Respiratory failure COMPARISON: June 26 FINDINGS: Moderate to marked improvement in right and no significant change in left pulmonary opacit ies Heart is normal size. Tubes have been removed IMPRESSION: Moderate to marked improvement in the right lung opacities may represent pulmonary jasmyne a given the rapid change
[2020-06-27] MEDS: KCL 20 MEQ/100 mL IVPB 20 MEQ/100 ML BAG IV SCH ×2 (08:53→14:49)
[2020-06-27] MEDS ORDERED: AMIODARONE HCL 200 MG TAB ONE (10:04)
[2020-06-27] MEDS ORDERED: ASPIRIN EC 81 MG TAB PO ONE (10:04)
[2020-06-27] MEDS ORDERED: HYDRALAZINE HCL 10 MG TABLET ONE (10:05)
[2020-06-27] MEDS ORDERED: LIDOCAINE 1% MPF 30 ML VIAL ONE (10:45)
[2020-06-27] MEDS ORDERED: LIDOCAINE VISCOUS 2% SOLN 15 ML UDC ONE (10:46)
[2020-06-27] MEDS: CEFEPIME/SWI 1gm 10 ML IVP SCH (11:08)
[2020-06-27] MEDS ORDERED: Ringers Lactate 1,000 ML IV ONE (11:21)
[2020-06-27] MEDS ORDERED: propofoL 200 MG/20 ML VIAL IV ONE (11:29)
[2020-06-27] MEDS ORDERED: FENTANYL CITR 100 MCG/2 ML ONE (11:29)
[2020-06-27] MEDS ORDERED: LIDOCAINE 2% MPF 5 ML VIAL ONE (11:29)
[2020-06-27] MEDS ORDERED: Phenylephrine HCl 10 MG/ML 1 ML VIAL ONE (11:41)
[2020-06-27] MEDS ORDERED: LIDOCAINE 4% TOP SOLUTION ONE (11:43)
[2020-06-27] MEDS ORDERED: GLYCOPYRROLATE 0.2 MG/ML SYR ONE (11:47)
--- NOTE | 2020-06-27 12:41 | P.OP ---
Date of Service: 06/27/20 (Bronchoscopy with bronchioalveolar lavage from the right upper in the right lower lobe) Findings and Operative Technique Patient is 64 years of age admitted with a recurrent pneumonia as a reason for bronchoscopy narrative report after obtaining informed consent from the patient she was premedicated by anesthesia. Findings normal vocal cords normal trachea normal julieta normal right a left- sided bronchial anatomy no endobronchial lesions visible there was some pus visible in the respiratory tract the both lungs specimens were sent off for Gram stain culture AFB and cytology patient tolerated the procedure very well has some minimal episodes of desaturation that corrected fairly quickly
--- NOTE | 2020-06-27 13:50 | RAD REPORT ---
EXAM DESCRIPTION: RAD - Chest Single View - 06/27/2020 1:22 pm CLINICAL HISTORY: S/P BRONCHOSCOPY; R/O PNEUMO COMPARISON: Portable June 27, CT chest June 26 TECHNIQUE: AP portable chest image was obtained 06/27/2020 1:22 pm . FINDINGS: No pneumothorax is present. Right lung field parenchymal opacification not substantially d ifferent from comparison. Left-side interstitial pattern also stable. Heart and vasculature are good l. No pleural effusions seen. No acute bony abnormality seen. No acute aortic findings suspected. IMPRESSION: No post bronchoscopy pneumothorax identifiable.
[2020-06-27] MEDS: HYDROCORTISONE 10 MG TAB PO SCH ×2 (14:00→15:51)
[2020-06-27] MEDS ORDERED: METOPROLOL TAR 50 MG TAB ONE (14:53)
[2020-06-27] MEDS ORDERED: OSELTAMIVIR 75 MG CAP ONE (14:53)
[2020-06-27] MEDS ORDERED: ENOXAPARIN 40 MG/0.4 ML SQ ONE (14:54)
[2020-06-27] MEDS: OSELTAMIVIR 75 MG CAP PO SCH ×2 (14:55→21:06)
[2020-06-27] MEDS: ENOXAPARIN 40 MG/0.4 ML SQ SCH (14:55)
[2020-06-27] MEDS: METOPROLOL TAR 50 MG TAB PO SCH ×2 (14:56→21:07)
[2020-06-27] MEDS: DULOXETINE 30 MG CAP PO SCH (15:48)
[2020-06-27] MEDS: FLUDROCORTISONE 0.1 MG TAB PO SCH (15:50)
[2020-06-27] MEDS: AMITRIPTYLINE 50 MG TAB PO SCH (21:07)
[2020-06-27] MEDS ORDERED: METOPROLOL TARTRATE 5 MG/5 ML INJ IV STA (21:43)
--- NOTE | 2020-06-27 21:48 | CON ---
Date of Consultation: 06/26/2020 The patient was admitted on 06/25/[address] Resendiz's service. I saw the patient on 06/26/2020. Reason For Consultation: Atrial fibrillation. History Of Present Illness: Ms. Cerna is a 64-year-old woman. She has been seen by us in the past. She has a history of paroxysmal atrial fibrillation, Catahoula's disease, dementia, dyslipidemia, TIA, irritable bowel syndrome, came in with what appears to be a right lower lobe bacterial pneumonia. S he was intubated on mechanical ventilation. She had come in with elevated white count and shortness of breath and hypertension. Had runs of atrial fibrillation while she was intubated, but she extubat ed herself and was sedated by the time she was seen. She had had a normal echocardiogram recently in February of 2020. There was no report of chest pain or syncope. Past Medical History: As stated above. Allergies: INCLUDE PENICILLIN AND SULFA. Review of Systems: Negative. Social History: Negative. Family History: Noncontributory. Physical Examination: General: Ms. Cerna has just been intubated. She is still sedated. O2 saturation is adequate. Vital Signs: Blood pressure is 170/60. She is in sinus rhythm now. HEENT: Negative. Neck: Supple with no bruit. Chest: Reveals crackles at the right base. Cardiac: Revealed sinus rhythm. No murmurs, gallops, or rubs. Abdomen: Obese, but benign. Extremities: Revealed no clubbing, cyanosis, or edema. Diagnostic Data: Stated earlier. Impression And Plan: 1.Paroxysmal atrial fibrillation. The patient is on metoprolol and Xarelto at home and I would cont inue that. 2.Dyslipidemia, on Crestor. 3.Hypothyroidism, on Synthroid. 4.Dementia. 5.Catahoula's. 6.Dyslipidemia. 7.History of transient ischemic attack. 8.Recent pneumonia, status post extubation. Has a right lower lobe bacterial pneumonia. She is on antibiotics. I will continue her present regimen. No cardiac workup is necessary at this point. YOANDY/MODL Voice ID: [id number] Report ID: [id number]
--- NOTE | 2020-06-27 21:54 | PN ---
Date of Progress Note: 06/27/2020 Subjective: Ms. Cerna was seen on 06/26/2020 for paroxysmal atrial fibrillation. She had come in in tubated initially and then extubated. She has right lower lobe bacterial pneumonia. She has multipl e other medical problems including Charlotte's, dementia, dyslipidemia, TIA, irritable bowel syndrome. The patient has been placed back on beta-blockers and her Xarelto, which she normally takes for her atrial fibrillation. She is in sinus rhythm this morning. Objective: Vital Signs: Stable. She is afebrile. She is feeling better. Chest: Her examination still reveals some crackles at the right base. Lungs: Clear. Heart: She is in sinus rhythm. Abdomen: Benign. Extremities: Showed no edema. Plan: I would continue her present regimen for her pneumonia. Continue Crestor for her dyslipidemia . Continue metoprolol and Xarelto for her atrial fibrillation. Continue her Synthroid. We will con tinue to follow her. No cardiac workup is recommended. She has had a normal echocardiogram in February of 2020. YOANDY/RUPALI Voice ID: [id number] Report ID: [id number]
[2020-06-27 22:42] LABS: Magnesium 1.9 mg/dL (1.8-2.4); Potassium 3.1 mmol/L (3.5-5.1)
[2020-06-27] MEDS ORDERED: POTASSIUM CL SA 10 MEQ TAB PO ONE (22:53)
[2020-06-28] MEDS: IPRATROPIUM BROM 0.5MG/2.5ML NEB SCH ×4 (00:50→20:00)
[2020-06-28] MEDS: ALBUTEROL 2.5 MG/3 ML NEB SOL NEB SCH ×4 (00:50→20:00)
[2020-06-28] MEDS ORDERED: TIZANIDINE 4 MG TABLET PO PRN (02:46)
[2020-06-28] MEDS ORDERED: clonazePAM 1 MG TAB PO PRN (02:46)
[2020-06-28] MEDS ORDERED: MELATONIN 5 MG TABLET PO PRN (03:06)
[2020-06-28] MEDS: OXYCODONE *CR* 10 MG TAB PO SCH ×3 (05:20→21:45)
[2020-06-28] MEDS: PANTOPRAZOLE 40MG TABLET PO SCH (05:20)
[2020-06-28 05:37] LABS: Absolute Lymphocytes (CBC) 1.9 K/uL (0.7-4.9); Basophils % 0.4 % (0-1.3); Hematocrit 29.6 % (36.0-45.0); Lymphocytes % 16.3 % (15.3-44.8); MPV 9.2 fL (7.6-11.3); RBC Red Blood Cell Count 3.53 M/uL (3.86-4.86)
[2020-06-28 05:59] LABS: BUN Blood Urea Nitrogen 6 mg/dL (7-18); Bicarbonate 33 mmol/L (21-32); Glucose Level 75 mg/dL (74-106); Phosphorus 2.6 mg/dL (2.5-4.9); Sodium Level 142 mmol/L (136-145); Thyroid Stimulating Hormone 0.927 uIU/mL (0.360-3.740)
--- NOTE | 2020-06-28 07:22 | RAD REPORT ---
EXAM DESCRIPTION: RAD - Chest Single View - 06/28/2020 5:55 am CLINICAL HISTORY: Pneumonia respiratory failure COMPARISON: Portable chest exams June 27, portable chest June 25 TECHNIQUE: AP portable chest image was obtained 06/28/2020 5:55 am . FINDINGS: Patchy pneumonia changes in the lung hathaway, worse on the right, are again noted and show a slight improvement. Differential change from June 27 is small. No progressive lung field finding. Heart and vasculature are normal. No measurable pleural effusion and no pneumothorax. No acute bony abnormality seen. No acute aortic findings suspected. IMPRESSION: Slight improvement in the pneumonia findings since prior day study.
--- NOTE | 2020-06-28 08:47 | P.PN ---
Subjective Date of Service: 06/28/20 Chief Complaint: Pneumonia Subjective: Improving (Patient is doing well no new complaints) Review of Systems General: Weakness Respiratory: Shortness of Breath Physical Examination - Vital Signs Temperature: 99.5 F Blood Pressure: 163/95 Pulse: 145 Respirations: 16 Pulse Ox (%): 91 - Physical Exam General: Alert, Oriented x3 Respiratory: Clear to auscultation bilaterally Cardiovascular: No edema, Normal S1 S2 - Studies Microbiology Data (last 24 hrs): 06/25/20 07:05 Throat Culture & Sensitivity - Final NORMAL UPPER RESPIRATORY KIRSTEN GROWN. Assessment & Plan - Problems (Diagnosis) (1) Respiratory failure Current Visit: Yes Status: Acute Plan: Respiratory failure has resolved bronchoscopy nondiagnostic specimen sent for cu ltures and cytology chest x-ray patient's white count is declining is mild hypokalemia recommend discharge home on levofloxacin and doxycycline I will follow her up as an outpatient so far cultures are all negative chest x-ray still shows some residual changes in the right lung patient has a history of recurrent pneumonia as unknown etiology Qualifiers: Chronicity: acute
[2020-06-28] MEDS ORDERED: POTASSIUM CL SA 10 MEQ TAB PO ONE (09:00)
[2020-06-28] MEDS ORDERED: levoFLOXacin 500 MG TAB PO SCH (09:00)
[2020-06-28] MEDS: OSELTAMIVIR 75 MG CAP PO SCH ×2 (09:13→21:45)
[2020-06-28] MEDS: SOTALOL HCL 80 MG TAB PO SCH ×2 (09:13→17:11)
[2020-06-28] MEDS: ASPIRIN EC 81 MG TAB PO SCH (09:13)
[2020-06-28] MEDS: DULOXETINE 30 MG CAP PO SCH (09:14)
[2020-06-28] MEDS: ROSUVASTATIN 10 MG TAB PO SCH (09:14)
[2020-06-28] MEDS: HYDROCORTISONE 10 MG TAB PO SCH ×2 (09:14→14:22)
--- NOTE | 2020-06-28 09:45 | P.PN ---
Subjective Date of Service: 06/28/20 Chief Complaint: Pneumonia Patient states she feels much better today. She has not been using oxygen. She states she is able to ambulate to and from bathroom without shortness of breath. She developed episodes of AFib with RVR yesterday. Cardiology evaluated her and started her on sotalol this morning. Physical Examination - Vital Signs Temperature: 99.5 F Blood Pressure: 163/95 Pulse: 145 Respirations: 16 Pulse Ox (%): 91 - Physical Exam General: Alert, In no apparent distress Neck: Supple, JVD not distended Respiratory: Diminished (On the right) Cardiovascular: No edema, Regular rate/rhythm, Normal S1 S2 Gastrointestinal: Normal bowel sounds, Soft and benign, Non-distended, No tenderness Musculoskeletal: No swelling, No erythema Integumentary: No rashes Neurological: Other (Nonfocal) - Studies Microbiology Data (last 24 hrs): 06/25/20 07:05 Throat Culture & Sensitivity - Final NORMAL UPPER RESPIRATORY KIRSTEN GROWN. Assessment And Plan - Current Problems (Diagnosis) (1) Acute respiratory failure with hypoxia Current Visit: Yes Status: Acute (2) Right lower lobe consolidation Current Visit: Yes Status: Acute (3) Right middle lobe pneumonia Current Visit: Yes Status: Acute (4) LLL pneumonia Onset Date: 09/08/16 Current Visit: No Status: Acute Qualifiers: (5) Sepsis Current Visit: No Status: Acute Qualifiers: Sepsis type: sepsis due to unspecified organism Qualified Code(s): A41.9 - Sepsis, unspecified organism (6) Atrial fibrillation Current Visit: Yes Status: Acute (7) HTN (hypertension) Current Visit: Yes Status: Acute - Plan Continue current antibiotics. Chest physiotherapy Patient is on steroid therapy. Bronchoscopy unremarkable per pulmonary. Ok to d/C per pulmonary standpoint. Patient started on sotalol by cardiology. Replete electrolytes as needed. Keep potassium > 4 and Magnesium > 2. Continue home antihypertensives. Increase activity as tolerated. Add amlodipine for blood pressure control.
[2020-06-28] MEDS: FLUDROCORTISONE 0.1 MG TAB PO SCH (09:51)
[2020-06-28 10:33] LABS: Magnesium 1.7 mg/dL (1.8-2.4)
[2020-06-28] MEDS: ACETAMINOPHEN 500 MG TAB PO PRN (11:40)
[2020-06-28] MEDS ORDERED: RIVAROXABAN 20 MG TABLET PO SCH (17:00)
--- NOTE | 2020-06-28 17:04 | PN ---
Date of Progress Note: 06/28/2020 Subjective: Ms. Cerna had come in with pneumonia, was intubated and then extubated, and had paroxysm al atrial fibrillation. She today has a heart rate of 145. She is on metoprolol and Lovenox. She d oes take Xarelto at home. Her potassium is 3, which needs to be supplemented. Her O2 saturation 88% on nasal cannula. Her white count is down to 11,000. She does feel palpitation. She has shortness of breath with it, but no chest pain. I discussed the case with Dr. Hamilton. I think we will need t o switch her to Betapace 80 mg 1 p.o. b.i.d. I would like for her to get at least 2 dosages before s he goes home and then continue that upon discharge, and then I would like to see her in the office in the next 2 to 3 weeks. YOANDY/RUPALI Voice ID: [id number] Report ID: [id number]
[2020-06-28] MEDS: AMITRIPTYLINE 50 MG TAB PO SCH (21:46)
[2020-06-29] MEDS: ACETAMINOPHEN 500 MG TAB PO PRN (01:03)
[2020-06-29] MEDS: ALBUTEROL 2.5 MG/3 ML NEB SOL NEB SCH ×2 (01:52→08:00)
[2020-06-29] MEDS: IPRATROPIUM BROM 0.5MG/2.5ML NEB SCH ×2 (01:52→08:00)
[2020-06-29] MEDS: OXYCODONE *CR* 10 MG TAB PO SCH ×2 (05:33→13:13)
[2020-06-29] MEDS: SOTALOL HCL 80 MG TAB PO SCH (05:33)
[2020-06-29] MEDS: PANTOPRAZOLE 40MG TABLET PO SCH (05:33)
[2020-06-29] MEDS: LEVOTHYROXINE SOD 0.025 MG TAB PO SCH (05:33)
[2020-06-29 06:18] LABS: Absolute Lymphocytes (CBC) 2.2 K/uL (0.7-4.9); Basophils % 0.4 % (0-1.3); Hematocrit 25.5 % (36.0-45.0); MPV 9.2 fL (7.6-11.3); RBC Red Blood Cell Count 3.03 M/uL (3.86-4.86)
[2020-06-29 06:24] LABS: Magnesium 1.8 mg/dL (1.8-2.4); Potassium 3.1 mmol/L (3.5-5.1)
[2020-06-29] MEDS ORDERED: MAGNESIUM SULFATE 1 gm IVPB 1 GM/100 ML BAG IV ONE (08:00)
[2020-06-29] MEDS ORDERED: POTASSIUM CL SA 10 MEQ TAB PO ONE (08:00)
--- NOTE | 2020-06-29 08:21 | P.DS ---
Admission Date: 06/25/20 Discharge Date: 06/29/20 Disposition: ROUTINE DISCHARGE Discharge Condition: FAIR Reason for Admission: Pneumonia - Problems (1) Acute respiratory failure with hypoxia Status: Acute (2) Right lower lobe consolidation Status: Acute (3) Right middle lobe pneumonia Status: Acute (4) LLL pneumonia Onset Date: 09/08/16 Status: Acute Qualifiers: (5) Sepsis Status: Acute Qualifiers: Sepsis type: sepsis due to unspecified organism Qualified Code(s): A41.9 - Sepsis, unspecified organism (6) Atrial fibrillation Status: Acute (7) HTN (hypertension) Status: Acute Brief History of Present Illness: 64-year-old woman with a history of proximal atrial fibrillation presented to the emergency department with respiratory distress. Patient's ABG on 100% non- rebreather mask showed hypoxemia. Patient was intubated and put on mechanical ventilation. Chest x-ray demonstrated bilateral pneumonia. She was hospitalized a month ago for pneumonia. She also met criteria for sepsis with leukocytosis and tachycardia. Patient was admitted for further management. Hospital Course: Patient admitted to the intensive care unit, treated with aggressive antibiotic therapy. Patient was seen in consultation by pulmonary-Dr. Son will planned bronchoscopy given recurrent pneumonia. She self extubated within 24 hrs of hospitalization. Patient tolerated oxygen by nasal cannula. She u nderwent bronchoscopy which was reported as unremarkable. No malignant cells identified by biopsy. Patient was eventually weaned off oxygen to room air which she tolerated. She was able to ambulate to and from bathroom without oxygen. She developed intermittent atrial fibrillation and was seen in consultation by cardiology. She has been on metoprolol for rate control which was switched to sotalol. The patient is also on chronic anticoagulation therapy with Xarelto. She is currently deemed stable for discharge. Pulmonary recommended Levaquin and doxycycline. Given multiple medication interactions of sotalol with Levaquin and amitriptyline, it was recommended to change Levaquin to Cefuroxime to reduce drug interactions. She will follow with Dr. Son and Dr. Astorga within 1-2 weeks. Vital Signs/Physical Exam: Temp Pulse Resp BP Pulse Ox 98.0 F 60 16 142/77 H 95 06/29/20 05:00 06/29/20 05:00 06/29/20 05:33 06/29/20 05:00 06/29/20 05:33 General: Alert, In no apparent distress Neck: Supple Respiratory: Clear to auscultation bilaterally, Diminished (On the right) Cardiovascular: No edema, Regular rate/rhythm, Normal S1 S2 Gastrointestinal: Normal bowel sounds, Soft and benign, Non-distended, No te nderness Musculoskeletal: No swelling, No erythema Neurological: Other (Nonfocal) Laboratory Data at Discharge: WBC 9.4 K/uL (4.3-10.9) D 06/29/20 05:34 Hgb 8.5 g/dL (12.0-15.0) L 06/29/20 05:34 Hct 25.5 % (36.0-45.0) L 06/29/20 05:34 Plt Count 237 K/uL (152-406) 06/29/20 05:34 PT 13.3 SECONDS (9.5-12.5) H 06/25/20 06:30 INR 1.13 06/25/20 06:30 APTT 28.8 SECONDS (24.3-36.9) 06/25/20 06:30 Sodium 141 mmol/L (136-145) 06/29/20 05:34 Potassium 3.1 mmol/L (3.5-5.1) L 06/29/20 05:34 BUN 15 mg/dL (7-18) 06/29/20 05:34 Creatinine 0.86 mg/dL (0.55-1.3) 06/29/20 05:34 Glucose 97 mg/dL (74-106) 06/29/20 05:34 Phosphorus 3.0 mg/dL (2.5-4.9) 06/29/20 05:34 Magnesium 1.8 mg/dL (1.8-2.4) 06/29/20 05:34 Total Bilirubin 0.2 mg/dL (0.2-1.0) 06/26/20 05:45 AST 21 U/L (15-37) 06/26/20 05:45 ALT 23 U/L (12-78) 06/26/20 05:45 Alkaline Phosphatase 64 U/L (45-117) 06/26/20 05:45 Lipase 43 U/L (73-393) L 06/25/20 06:00 Home Medications: Amitriptyline HCl 100 mg PO BEDTIME 06/25/20 Aspirin [Aspirin EC 81 MG] 81 mg PO DAILY 06/25/20 Duloxetine HCl [Cymbalta] 120 mg PO DAILY 06/25/20 Fludrocortisone [Florinef *] 0.2 mg PO DAILY 06/25/20 Hydrocortisone [Cortef*] 10 mg PO SEECOM 06/25/20 Hydrocortisone [Cortef*] 20 mg PO BREAKFAST 06/25/20 Lactobacillus Combination No.4 [Probiotic] 1 cap PO 1400 06/25/20 Levothyroxine Sodium 0.25 mg PO DAILY 06/25/20 Melatonin 10 mg PO BEDTIME PRN PRN 06/25/20 Omeprazole 20 mg PO DAILY 06/25/20 Oxycodone HCl [Oxycontin] 10 mg PO TID 06/25/20 Promethazine HCl 25 mg PO BIDP PRN 06/25/20 Rivaroxaban [Xarelto] 20 mg PO 1700 06/25/20 Rosuvastatin [Crestor*] 10 mg PO DAILY 06/25/20 Tizanidine HCl [Zanaflex] 2 mg PO DAILYPRN PRN 06/25/20 Valerian Root Extract [Valerian] 150 mg PO BEDTIME 06/25/20 Zaleplon 10 mg PO BEDTIME 06/25/20 clonazePAM [Clonazepam] 1 mg PO BIDP PRN 06/25/20 estradioL [Estradiol] 2 mg PO BEDTIME 06/25/20 Amlodipine [Norvasc*] 10 mg PO DAILY #30 tab 06/29/20 Cefuroxime Axetil [Cefuroxime] 500 mg PO BID #14 tab 06/29/20 Oseltamivir [Tamiflu*] 75 mg PO BID #10 cap 06/29/20 Sotalol HCl [Betapace*] 80 mg PO BID 6AM 6PM #60 tab 06/29/20 New Medications: Sotalol HCl [Betapace*] 80 mg PO BID 6AM 6PM #60 tab Cefuroxime Axetil [Cefuroxime] 500 mg PO BID #14 tab Amlodipine [Norvasc*] 10 mg PO DAILY #30 tab Oseltamivir [Tamiflu*] 75 mg PO BID #10 cap Diet: AHA Activity: Ad hossein Followup: Siddhartha Son MD [ACTIVE - CAN ADMIT] - 1-2 Weeks (Call to make an appointment. ) Michael Astorga MD [ACTIVE - CAN ADMIT] - 1-2 Weeks (Call to make an appointment) Time spent managing pt's care (in minutes): 40
--- NOTE | 2020-06-29 08:44 | RAD REPORT ---
EXAM DESCRIPTION: RAD - Chest Single View - 06/29/2020 5:36 am CLINICAL HISTORY: Pneumonia respiratory failure Chest pain. COMPARISON: Chest Single View dated 06/28/2020; Chest Single View dated 06/27/2020; Chest Single View da jayce 06/27/2020; Chest Single View dated 06/25/2020 FINDINGS: Portable technique limits examination quality. Moderate bilateral pulmonary opacities are present, unchanged. The heart is upper limit of normal in size. No displaced fractures. IMPRESSION: Stable chest since 06/28/2020.
[2020-06-29] MEDS ORDERED: AMLODIPINE 10 MG TAB PO SCH (09:00)
[2020-06-29 09:32] VITALS: O2SAT 90
[2020-06-29] MEDS: HYDROCORTISONE 10 MG TAB PO SCH ×2 (09:56→13:13)
[2020-06-29] MEDS: DULOXETINE 30 MG CAP PO SCH (09:56)
[2020-06-29] MEDS: ASPIRIN EC 81 MG TAB PO SCH (09:56)
[2020-06-29] MEDS: ROSUVASTATIN 10 MG TAB PO SCH (09:56)
[2020-06-29] MEDS: OSELTAMIVIR 75 MG CAP PO SCH (09:57)
[2020-06-29] MEDS: FLUDROCORTISONE 0.1 MG TAB PO SCH (09:58)
[2020-06-29 14:01] VITALS: BP 129/62; TEMP 97
== END 2020-06-29 13:40 | disposition home or self-care (01) | DRG 871 ==
LOC: ER 05:20 → ERHOLD 08:37 → 2ND 06-27 17:44
PROVIDERS: ADMIT Internal Medicine; ATTEND Internal Medicine
PROC: 5A1935Z Respiratory Ventilation, Less than 24 Consecutive Hours (ICD-10-PCS; principal; 2020-06-25)
PROC: 0BH17EZ Insertion of Endotracheal Airway into Trachea, Via Natural or Artificial Opening (ICD-10-PCS; 2020-06-25)
PROC: 8E0ZXY6 Isolation (ICD-10-PCS; 2020-06-25)
DX: A41.9 Sepsis, unspecified organism (principal); J96.01 Acute respiratory failure with hypoxia; J15.9 Unspecified bacterial pneumonia; E27.1 Primary adrenocortical insufficiency; I48.0 Paroxysmal atrial fibrillation; K58.9 Irritable bowel syndrome, unspecified; E03.9 Hypothyroidism, unspecified; E78.5 Hyperlipidemia, unspecified; I10 Essential (primary) hypertension; F03.90 Unspecified dementia, unspecified severity, without behavioral disturbance, psychotic disturbance, mood disturbance, and anxiety; R05 Cough; Z20.828 Contact with and (suspected) exposure to other viral communicable diseases; Z88.1 Allergy status to other antibiotic agents; Z88.0 Allergy status to penicillin; Z88.8 Allergy status to other drugs, medicaments and biological substances; Z79.82 Long term (current) use of aspirin; Z79.890 Hormone replacement therapy; Z79.899 Other long term (current) drug therapy; Z79.01 Long term (current) use of anticoagulants; Z86.73 Personal history of transient ischemic attack (TIA), and cerebral infarction without residual deficits; Z90.49 Acquired absence of other specified parts of digestive tract; Z90.710 Acquired absence of both cervix and uterus
CPT/HCPCS: 31500; 36415; 51702; 71045; 71260; 80048; 80053; 80076; 81003; 82728; 82805; 82947; 83605; 83690; 83735; 83880; 84100; 84132; 84145; 84443; 84484; 85025; 85379; 85610; 85730; 86140; 87040; 87070; 87081; 87804; 88108; 88305; 88312; 93005; 94002; 94003; 94640; 96365; 96366; 96367; 96368; 96372; 96375; 99285; J0330; J0456; J0692; J1100; J1650; J1720; J2250; J2370; J2704; J3010; J3370; J3475; J3480; J7030; J7040; J7050; J7120; Q9967; U0002

== ENCOUNTER 2020-07-01 06:16 | Emergency (ER) | payer OTHER ==
--- OUTSIDE RECORDS SUMMARY | 2020-07-01 06:21 | XMS REPORT | Continuity of Care Document ---
:1955 Author Organization [facility] t Address [address] [place] [address] Care Team Providers Name Role Phone Jeanne [...] Facility Department ID 2020-06-15 2020-06-15 CARLENE Rodriguez [id number] 00:00:00 00:00:00 eJsus Segal [id number] [place] [id number] Professio [phone] nal 220 Building 2020-03-25 2020-03-25 CARLENE Amos [id number] 00:00:00 00:00:00 Chasidy Segal [id number] [place] [id number] Professio [phone] nal 220 [facility] Results This patient has no known results.
[2020-07-01] MEDS ORDERED: LIDOCAINE 1% W/EPI 1:100,000 MDV 20 ML VIAL ONE (07:03)
[2020-07-01] MEDS ORDERED: Ringers Lactate 1,000 ML IV ONE (07:03)
[2020-07-01 07:40] LABS: Absolute Lymphocytes (CBC) 2.9 K/uL (0.7-4.9); Basophils % 0.6 % (0-1.3); MPV 8.6 fL (7.6-11.3); RBC Red Blood Cell Count 3.76 M/uL (3.86-4.86)
[2020-07-01 07:43] LABS: Protime INR 1.27
[2020-07-01] MEDS ORDERED: DICYCLOMINE HCL 10 MG CAP ONE (08:13)
[2020-07-01 08:26] LABS: Albumin 2.8 g/dL (3.4-5.0); Bilirubin Direct 0.1 mg/dL (0-0.2); Bilirubin Total 0.3 mg/dL (0.2-1.0); Protein, Total 6.8 g/dL (6.4-8.2)
[2020-07-01 08:30] LABS: Potassium 2.7 mmol/L (3.5-5.1)
[2020-07-01] MEDS ORDERED: HYDROCORTISONE SUC 100 MG INJ ONE (09:21)
[2020-07-01] MEDS ORDERED: FENTANYL CITR 100 MCG/2 ML ONE (09:22)
[2020-07-01] MEDS ORDERED: POTASSIUM 25 MEQ EFFERV TAB ONE (09:23)
[2020-07-01] MEDS ORDERED: NA CHLORIDE 0.9% 250 ML ONE (09:23)
[2020-07-01] MEDS ORDERED: KCL 20 MEQ/100 mL IVPB 20 MEQ/100 ML BAG IV ONE (09:23)
--- NOTE | 2020-07-01 11:05 | EDPHYS ---
Physician Documentation [facility] Name: Dulec Cerna Age: 64 yrs Sex: Female : 1955 Arrival Date: 07/01/2020 Time: 06:18 Bed 8 Private MD: Pieter Molina H ED Physician Fletcher Pruitt HPI: 07/01 07:36 This 64 yrs old Female presents to ER via EMS with complaints of Head jr8 Injury-Adult. 07:36 The patient or guardian reports a laceration, pain. The complaints affect the forehead. jr8 Onset: The symptoms/episode began/occurred acutely, today. Associated signs and symptoms: Pertinent positives: generalized weakness. Severity of symptoms: At their worst the symptoms were moderate, in the emergency department the symptoms are unchanged. The patient has not experienced similar symptoms in the past. The patient has been recently seen by a physician:. Patient recently seen and released from hospital for pneumonia. Was sent home on antibiotics. Stated that she now for the past couple of days has had a lot of diarrhea. Stated that she was getting up from the toilet and became dizzy causing her to fall and hit head. Denies LOC. Historical: - Allergies: 06:19 "pain pills"; sg 06:19 PENICILLINS; sg 06:19 Sulfa (Sulfonamide Antibiotics); sg - PMHx: 06:19 addisons; Chronic pain; Depression; Early Dementia; Hyperlipidemia; Irritable bowel sg syndrome; TIA; - Immunization history:: Adult Immunizations up to date. - Social history:: Smoking status: Patient denies any tobacco usage or history of. - Immunization history: Last tetanus immunization: - up to date. ROS: 07:36 Eyes: Negative for injury, pain, redness, and discharge, ENT: Negative for injury, jr8 pain, and discharge, Neck: Negative for injury, pain, and swelling, Cardiovascular: Negative for chest pain, palpitations, and edema, Respiratory: Negative for shortness of breath, cough, wheezing, and pleuritic chest pain, Back: Negative for injury and pain, MS/Extremity: Negative for injury and deformity. 07:36 Abdomen/GI: Positive for diarrhea, abdominal cramps. 07:36 Skin: Positive for laceration(s). 07:36 Neuro: Positive for dizziness. Exam: 07:36 Eyes: Pupils equal round and reactive to light, extra-ocular motions intact. Lids and jr8 lashes normal. Conjunctiva and sclera are non-icteric and not injected. Cornea within normal limits. Periorbital areas with no swelling, redness, or edema. ENT: Nares patent. No nasal discharge, no septal abnormalities noted. Tympanic membranes are normal and external auditory canals are clear. Oropharynx with no redness, swelling, or masses, exudates, or evidence of obstruction, uvula midline. Mucous membranes moist. Neck: Trachea midline, no thyromegaly or masses palpated, and no cervical lymphadenopathy. Supple, full range of motion without nuchal rigidity, or vertebral point tenderness. No Meningismus. Cardiovascular: Regular rate and rhythm with a normal S1 and S2. No gallops, murmurs, or rubs. Normal PMI, no JVD. No pulse deficits. Respiratory: Lungs have equal breath sounds bilaterally, clear to auscultation and percussion. No rales, rhonchi or wheezes noted. No increased work of breathing, no retractions or nasal flaring. Abdomen/GI: Soft, non-tender, with normal bowel sounds. No distension or tympany. No guarding or rebound. No evidence of tenderness throughout. Back: No spinal tenderness. No costovertebral tenderness. Full range of motion. MS/ Extremity: Pulses equal, no cyanosis. Neurovascular intact. Full, normal range of motion. Neuro: Awake and alert, GCS 15, oriented to person, place, time, and situation. Cranial nerves II-XII grossly intact. Motor strength 5/5 in all extremities. Sensory grossly intact. Cerebellar exam normal. 07:36 Skin: injury, laceration(s), the wound is approximately 2.5 cm(s), with a depth of .5 cm(s), of the forehead, that can be described as no foreign body, linear, without bleeding. Vital Signs: 06:18 BP 116 / 63; Pulse 68; Resp 18; Temp 97.8(TE); Pulse Ox 97% ; Weight 68.95 kg; Height 5 ea ft. 2 in. (157.48 cm); 08:00 BP 141 / 100; Pulse 69; Resp 15; Pulse Ox 99% ; bp 09:00 BP 147 / 82; Pulse 71; Resp 16; Pulse Ox 98% ; bp 10:30 BP 138 / 77; Pulse 73; Resp 15; Pulse Ox 94% ; bp 11:30 BP 147 / 58; Pulse 72; Resp 17; Temp 97.5; Pulse Ox 95% ; bp 06:18 Body Mass Index 27.80 (68.95 kg, 157.48 cm) ea Houston Coma Score: 06:19 Eye Response: to voice(3). Verbal Response: oriented(5). Motor Response: obeys sg commands(6). Total: 14. 06:19 Eye Response: spontaneous(4). Verbal Response: oriented(5). Motor Response: obeys ea commands(6). Total: 15. 07:36 Eye Response: spontaneous(4). Verbal Response: oriented(5). Motor Response: obeys jr8 commands(6). Total: 15. Trauma Score (Adult): 06:19 Eye Response: spontaneous(1); Verbal Response: oriented(1); Motor Response: obeys ea commands(2); Systolic BP: > 89 mm Hg(4); Respiratory Rate: 10 to 29 per min(4); Houston Score: 15; Trauma Score: 12 Procedures: 07:40 Peripheral line: by aseptic technique a peripheral line was placed in the left external jr8 jugular vein, 20G placed without complication. Verified with blood return and flushing without infiltration . Laceration: 07:36 Wound Repair of 2.5cm ( 1.0in ) subcutaneous laceration to forehead. Linear shaped.. jr8 Distal neuro/vascular/tendon intact. Anesthesia: Local anesthetic administered with 3 mls of 1% lidocaine w/ Epi. Wound prep: Moderate cleansing with betadine, Wound irrigation with saline, Wound explored extensively. Skin closed with 3 5-0 Prolene using interrupted sutures and sterile technique. Patient tolerated well. MDM: 06:34 Patient medically screened. christ 10:59 Data reviewed: vital signs, nurses notes, lab test result(s), EKG. Data interpreted: jr8 Pulse oximetry: on room air is 95 %. Interpretation: normal. Counseling: I had a detailed discussion with the patient and/or guardian regarding: the historical points, exam findings, and any diagnostic results supporting the discharge/admit diagnosis, lab results, the need for outpatient follow up, a family practitioner, to return to the emergency department if symptoms worsen or persist or if there are any questions or concerns that arise at home. Response to treatment: the patient's symptoms have markedly improved after treatment. ED course: Stopping Abx. Will start on flagyl. Patient could not give diarrhea sample. Replaced potassium as well. Patient knows to come back if worse . 07/01 06:34 Order name: Basic Metabolic Panel 07/01 06:34 Order name: CBC with Diff 07/01 06:34 Order name: Hepatic Function 07/01 06:34 Order name: Protime (+inr) 07/01 06:34 Order name: Ptt, Activated 07/01 07:43 Order name: CBC with Automated Diff; Complete Time: 07:53 EDMS 07/01 06:34 Order name: CT Head Brain wo Cont 07/01 07:44 Order name: Protime (+INR); Complete Time: 07:53 EDMS 07/01 07:44 Order name: PTT, Activated Partial Thromb; Complete Time: 07:53 EDMS 07/01 08:31 Order name: Basic Metabolic Panel; Complete Time: 08:35 EDMS 07/01 08:31 Order name: Liver (Hepatic) Function; Complete Time: 08:35 EDMS 07/01 06:34 Order name: IV Saline Lock; Complete Time: 07:33 07/01 06:34 Order name: Labs collected and sent; Complete Time: 07:33 07/01 06:34 Order name: EKG - Nurse/Tech; Complete Time: 07:41 07/01 06:35 Order name: Prolene, Sutures; Complete Time: 07:40 07/01 06:35 Order name: Dressing - Wound; Complete Time: 07:40 07/01 06:35 Order name: Gloves, Sterile; Complete Time: 07:40 07/01 06:35 Order name: Setup Suture Tray; Complete Time: 07:40 Administered Medications: 07:25 Drug: Lidocaine-Epinephrine -1%: (1:100,000) 1 vials {Note: administered by PA to aa5 forehead for laceration repair. .} Volume: 20 ml; Route: Infiltration; 07:39 Drug: Ringers - Lactated Ringers Solution 1000 ml Route: IV; Rate: bolus; Site: left aa5 jugular; 07:45 Drug: Bentyl 20 mg Route: PO; bp 08:46 Follow up: Response: No adverse reaction bp 09:00 Drug: Potassium Chloride 40 mEq Route: PO; bp 10:54 Follow up: Response: No adverse reaction bp 09:00 Drug: Potassium Chloride 20 mEq Route: IV; Rate: calculated rate; Site: left jugular; bp 11:38 Follow up: IV Status: Completed infusion; IV Intake: 100ml bp 09:00 Drug: HydroCORTISONE 50 mg Route: IVP; Site: left jugular; bp 10:55 Follow up: Response: No adverse reaction bp 09:00 Drug: fentaNYL (PF) 25 mcg Route: IVP; Site: left jugular; bp 10:55 Follow up: Response: Pain is decreased bp Disposition: 07/02 11:07 Co-signature as Attending Physician, Fletcher Pruitt MD I agree with the assessment and christ plan of care. Disposition: 07/01/20 11:03 Discharged to Home. Impression: Hypokalemia, Dehydration, Diarrhea, unspecified, Adverse effect of cephalosporins and other beta-lactam antibiotics. - Condition is Stable. - Discharge Instructions: Diarrhea, Adult, Hypokalemia. - Prescriptions for Bentyl 20 mg Oral Tablet - take 1 tablet by ORAL route every 6 hours As needed; 20 tablet. Flagyl 500 mg Oral Tablet - take 1 tablet by ORAL route every 6 hours for 10 days; 40 tablet. - Medication Reconciliation Form, Thank You Letter, Antibiotic Education, Prescription Opioid Use form. - Follow up: Pieter Molina DO; When: 2 - 3 days; Reason: Recheck today's complaints, Continuance of care, Re-evaluation by your physician. - Problem is new. - Symptoms have improved. Signatures: Dispatcher [employer] EDMS Avery Guevara RN RN sg Anderson, Corey, MD MD cha Calderon, Audri RN RN aa5 Kaushal Camarena PA PA jr8 Quynh Hale RN RN ea Peltier, Brian RN RN bp Corrections: (The following items were deleted from the chart) 07/01 11:39 11:03 07/01/2020 11:03 Discharged to Home. Impression: Hypokalemia; Dehydration; bp Diarrhea, unspecified; Adverse effect of cephalosporins and other beta-lactam antibiotics. Condition is Stable. Forms are Medication Reconciliation Form, Thank You Letter, Antibiotic Education, Prescription Opioid Use. Follow up: Pieter Molina; When: 2 - 3 days; Reason: Recheck today's complaints, Continuance of care, Re-evaluation by your physician. Problem is new. Symptoms have improved. jr8
--- NOTE | 2020-07-01 11:05 | ER ---
Nurse's Notes [facility] Name: Dulce Cerna Age: 64 yrs Sex: Female : 1955 Arrival Date: 07/01/2020 Time: 06:18 Bed 8 Private MD: Pieter Molina H Diagnosis: Hypokalemia;Dehydration;Diarrhea, unspecified;Adverse effect of cephalosporins and other beta-lactam antibiotics Presentation: 07/01 06:18 Chief complaint: EMS states: Reports she had fall while trying to go to the restroom ea and hit her head on the bathtub. Denied LOC. Laceration noted to forehead. Coronavirus screen: At this time, the client does not indicate any symptoms associated with coronavirus-19. Ebola Screen: No symptoms or risks identified at this time. 06:18 Method Of Arrival: EMS: [facility] ea 06:18 Trauma event details: Injury occurred in the [facility], Injury occurred: at home. Injury occurred: July 01, 2020 Injury occurred at: 06:19. 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 Coronavirus screen: Client denies travel out of the [place] in the last 14 days. At this time, the client does not indicate any symptoms associated with coronavirus-19. Ebola Screen: Patient negative for fever greater than or equal to 101.5 degrees Fahrenheit, and additional compatible Ebola Virus Disease symptoms Patient denies exposure to infectious person. Patient denies travel to an Ebola-affected area in the 21 days before illness onset. No symptoms or risks identified at this time. Mechanism of Injury: The problem was sustained at home, resulted from a fall, from a standing position. Initial Sepsis Screen: Does the patient meet any 2 criteria? No. Patient's initial sepsis screen is negative. Does the patient have a suspected source of infection? No. Patient's initial sepsis screen is negative. Risk Assessment: Do you want to hurt yourself or someone else? Patient reports no desire to harm self or others. Onset of symptoms was July 01, 2020. Care prior to arrival: None. Transition of care: patient was not received from another setting of care. 06:19 Method Of Arrival: EMS: [facility] sg 06:19 Acuity: TRAYC 2 sg 06:19 Care prior to arrival: None. ea 06:24 Initial Sepsis Screen: Does the patient meet any 2 criteria? No. Patient's initial ea sepsis screen is negative. Does the patient have a suspected source of infection? No. Patient's initial sepsis screen is negative. Risk Assessment: Do you want to hurt yourself or someone else? Patient reports no desire to harm self or others. Onset of symptoms was July 01, 2020. 06:24 Acuity: TRACY 3 ea Trauma Activation: Alert Physician: ED Physician; Name: ; Notified At: ; Arrived At: Physician: General Surgeon; Name: ; Notified At: ; Arrived At: Physician: Radiology; Name: ; Notified At: ; Arrived At: Physician: Respiratory; Name: ; Notified At: ; Arrived At: Physician: Lab; Name: ; Notified At: ; Arrived At: Historical: - Allergies: 06:19 "pain pills"; sg 06:19 PENICILLINS; sg 06:19 Sulfa (Sulfonamide Antibiotics); sg - PMHx: 06:19 addisons; Chronic pain; Depression; Early Dementia; Hyperlipidemia; Irritable bowel sg syndrome; TIA; - Immunization history:: Adult Immunizations up to date. - Social history:: Smoking status: Patient denies any tobacco usage or history of. - Immunization history: Last tetanus immunization: - up to date. Screenin:23 Abuse screen: Denies threats or abuse. Nutritional screening: No deficits noted. ea Tuberculosis screening: No symptoms or risk factors identified. Fall Risk None identified. Primary Survey: 06:18 NO uncontrolled hemorrhage observed. A: The patient is alert. Airway: patent. ea Breathing/Chest: Respiratory pattern: regular, Respiratory effort: spontaneous. Circulation: Skin color: pale. Disability Alert. Exposure/Environment: Obvious injury(ies) are noted at this time: laceration to forehead. 11:36 Reassessment Airway Airway Patent Breathing/Chest Respiratory pattern Regular bp Respiratory effort Spontaneous Unlabored. Assessment: 06:18 Reassessment: a trauma alert has been activated. sg 06:25 Pain: Complains of pain in forehead. Neuro: Level of Consciousness is awake, alert, ea obeys commands, Oriented to person, place, time, situation. 06:26 General: Appears in no apparent distress. Behavior is appropriate for age. ea Cardiovascular: Patient's skin is warm and dry. Respiratory: Airway is patent Respiratory effort is even, unlabored, Respiratory pattern is regular, symmetrical. Derm: Skin is pink, warm \\T\\ dry. Injury Description: Laceration sustained to forehead is jagged, was sustained less than 30 minutes ago. 07:00 Reassessment: RECD REPORT FROM NAHOMI PAIGE. 64YO WF S/P FALL, NO LOC. TRAUMA ALERT BY bp PREVIOUS SHIFT. 08:04 Reassessment: ALL CURRENT ORDERS COMPLETED, RESULTS PENDING. LAC REPAIRED, NO FURTHER bp BLEEDING. 09:00 Reassessment: LAC REPAIR COMPLETED, KCL REPLETION IN PROCESS. bp 11:00 Reassessment: ALL CURRENT ORDERS COMPLETED, AWAITING FAMILY FOR D/C HOME. bp 11:34 Reassessment: PT D/C HOME VIA W/C WITH FAMILY, DX WITH HYPOKALEMIA AND DEHYDRATION. bp Vital Signs: 06:18 BP 116 / 63; Pulse 68; Resp 18; Temp 97.8(TE); Pulse Ox 97% ; Weight 68.95 kg; Height 5 ea ft. 2 in. (157.48 cm); 08:00 BP 141 / 100; Pulse 69; Resp 15; Pulse Ox 99% ; bp 09:00 BP 147 / 82; Pulse 71; Resp 16; Pulse Ox 98% ; bp 10:30 BP 138 / 77; Pulse 73; Resp 15; Pulse Ox 94% ; bp 11:30 BP 147 / 58; Pulse 72; Resp 17; Temp 97.5; Pulse Ox 95% ; bp 06:18 Body Mass Index 27.80 (68.95 kg, 157.48 cm) ea Mariana Coma Score: 06:19 Eye Response: to voice(3). Verbal Response: oriented(5). Motor Response: obeys sg commands(6). Total: 14. 06:19 Eye Response: spontaneous(4). Verbal Response: oriented(5). Motor Response: obeys ea commands(6). Total: 15. 07:36 Eye Response: spontaneous(4). Verbal Response: oriented(5). Motor Response: obeys jr8 commands(6). Total: 15. Trauma Score (Adult): 06:19 Eye Response: spontaneous(1); Verbal Response: oriented(1); Motor Response: obeys ea commands(2); Systolic BP: > 89 mm Hg(4); Respiratory Rate: 10 to 29 per min(4); [place] Score: 15; Trauma Score: 12 ED Course: 06:18 Patient arrived in ED. sg 06:18 Pieter Molina DO is Private Physician. sg 06:18 Arm band placed on. sg 06:24 Triage completed. ea 06:25 Patient has correct armband on for positive identification. Bed in low position. Call ea light in reach. 06:30 Kaushal Camarena PA is PHCP. jr8 06:30 Fletcher Pruitt MD is Attending Physician. jr8 07:07 Patient maintains SpO2 saturation greater than 95% on room air. Thermoregulation: warm ea blanket given to patient. 07:20 Moustapha Gomez, RN is Primary Nurse. bp 07:25 Initial lab(s) drawn, by ED staff, sent to lab. Inserted saline lock: 20 gauge in left aa5 EJ, using aseptic technique. ,using aseptic technique. Inserted by CARLYN Erazo. 07:30 Assist provider with laceration repair on forehead using 3 sutures. Set up tray. aa5 Performed by Kaushal ALCOCER Patient tolerated well. 11:03 Pieter Molina DO is Referral Physician. jr8 11:30 IV discontinued, intact, bleeding controlled, No redness/swelling at site. Pressure bp dressing applied. Administered Medications: 07:25 Drug: Lidocaine-Epinephrine -1%: (1:100,000) 1 vials {Note: administered by CARLYN to aa5 forehead for laceration repair. .} Volume: 20 ml; Route: Infiltration; 07:39 Drug: Ringers - Lactated Ringers Solution 1000 ml Route: IV; Rate: bolus; Site: left aa5 jugular; 07:45 Drug: Bentyl 20 mg Route: PO; bp 08:46 Follow up: Response: No adverse reaction bp 09:00 Drug: Potassium Chloride 40 mEq Route: PO; bp 10:54 Follow up: Response: No adverse reaction bp 09:00 Drug: Potassium Chloride 20 mEq Route: IV; Rate: calculated rate; Site: left jugular; bp 11:38 Follow up: IV Status: Completed infusion; IV Intake: 100ml bp 09:00 Drug: HydroCORTISONE 50 mg Route: IVP; Site: left jugular; bp 10:55 Follow up: Response: No adverse reaction bp 09:00 Drug: fentaNYL (PF) 25 mcg Route: IVP; Site: left jugular; bp 10:55 Follow up: Response: Pain is decreased bp Intake: 11:36 IV: 350ml; Total: 350ml. bp 11:38 IV: 100ml; Total: 450ml. bp Outcome: 11:03 Discharge ordered by MD. haywood 11:30 Discharged to home ambulatory, with family. bp 11:30 Condition: stable 11:30 Discharge instructions given to patient, Instructed on discharge instructions, follow up and referral plans. medication usage, wound care, Demonstrated understanding of instructions, follow-up care, medications, wound care, Prescriptions given X 2. 11:39 Patient left the ED. bp Signatures: Avery Guevara RN Cherise Billingsley RN RN aa5 Kaushal Camarena PA PA jr8 Antunez, Elena, RN RN ea Peltier, Brian, RN RN bp Corrections: (The following items were deleted from the chart) 06:24 06:18 Chief complaint: EMS states: Reports she had fall while trying to go to the ea restroom and hit her head on the bathtub. Denied LOC ea
[2020-07-01 11:54] VITALS: BP 147/58; TEMP 97.5; O2SAT 95
--- NOTE | 2020-07-02 12:16 | RAD REPORT ---
EXAM DESCRIPTION: CT HEAD WITHOUT CONTRAST CLINICAL HISTORY: Dizziness;Trauma, hit head on bathtub. Forehead laceration. Blood thinners. COMPARISON: None. TECHNIQUE: Axial unenhanced CT imaging of the brain. Reformatted coronal and sagittal images obtaine d. This examination was performed according to our departmental dose optimization program, which include s automated exposure control, adjustment of the mA and/or kV according to patient size and/or use of iterative reconstruction technique. FINDINGS: The ventricles and extra axial fluid spaces are normal for age. There is moderate decrease d white matter attenuation due to chronic microvascular ischemic change. There is no hemorrhage. No m ass or midline shift. No acute major territorial infarction. No edema evident. The cerebellum and gilberto mis appear normal. Fourth ventricle is midline. Prepontine cisterns are not effaced. Sella is empty. Intraorbital contents appear normal. Clear paranasal sinuses. Mastoid air cells are clear. Skull base and calvarium are intact. There is left anterior frontal scalp edema. A small focus of subcutaneous emphysema over the central frontal sinuses. Small focus of hyperdense swelling over the left anterior and lateral frontal scalp soft tissues due to small hematomas. No fracture within the imaged facial bones. IMPRESSION: 1. Left frontal scalp edema with small left frontal scalp hematomas. Minimal subcutaneou s emphysema. No intracranial bleed or skull fracture. 2. Moderate senescent brain changes. Electronically signed by: Lidna Poe DO 07/01/2020 7:15 AM CDT Due to temporary technical issues with the PACS/Fluency reporting system, reports are being signed by the in house radiologist without review as a courtesy to ensure prompt reporting. The interpreting r adiologist is fully responsible for the content of the report.
== END 2020-07-01 11:39 | disposition home or self-care (01) ==
LOC: ER 06:16
PROC: 0JQ10ZZ Repair Face Subcutaneous Tissue and Fascia, Open Approach (ICD-10-PCS; principal; 2020-07-01)
PROC: 05HQ33Z Insertion of Infusion Device into Left External Jugular Vein, Percutaneous Approach (ICD-10-PCS; 2020-07-01)
DX: S01.81XA Laceration without foreign body of other part of head, initial encounter (principal); E87.6 Hypokalemia; R19.7 Diarrhea, unspecified; T36.1X5A Adverse effect of cephalosporins and other beta-lactam antibiotics, initial encounter; F03.90 Unspecified dementia, unspecified severity, without behavioral disturbance, psychotic disturbance, mood disturbance, and anxiety; W18.11XA Fall from or off toilet without subsequent striking against object, initial encounter; Y93.89 Activity, other specified; Y92.9 Unspecified place or not applicable; Z88.0 Allergy status to penicillin; Z88.2 Allergy status to sulfonamides; Z88.6 Allergy status to analgesic agent
CPT/HCPCS: 12011; 36569; 93005; 85025; 80048; 36415; 85610; 80076; 85730; 70450; J3480; J3010; J7120; J7050; J1720; 96365; 96366; 96375; 99284; G0390

== ENCOUNTER 2020-08-27 06:03 | Observation (INO) | payer OTHER ==
[2020-08-27] MEDS ORDERED: Levofloxacin500mg IV 500 MG/100 ML BAG IV ONE (07:19)
[2020-08-27] MEDS ORDERED: MORPHINE 4 MG/ML SYR ONE (07:19)
[2020-08-27] MEDS ORDERED: ACETAMINOPHEN 500 MG TAB ONE (07:19)
[2020-08-27] MEDS ORDERED: ONDANSETRON 4 MG/2 ML VIAL ONE ×2 (07:19→15:34)
[2020-08-27] MEDS ORDERED: FAMOTIDINE 20 MG/2 ML VIAL IV ONE (07:19)
[2020-08-27] MEDS ORDERED: NA CHLORIDE 0.9% 2,000 ML ONE (07:20)
[2020-08-27 07:25] LABS: Absolute Lymphocytes (CBC) 0.9 K/uL (0.7-4.9); Basophils % 0.2 % (0-1.3); Hematocrit 33.2 % (36.0-45.0); Lymphocytes % 8.8 % (15.3-44.8); MPV 8.7 fL (7.6-11.3); RBC Red Blood Cell Count 3.93 M/uL (3.86-4.86)
[2020-08-27 07:43] LABS: ALT/SGPT 19 U/L (12-78); AST/SGOT 22 U/L (15-37); Alkaline Phosphatase 86 U/L (45-117); Amylase 27 U/L (25-115); BUN Blood Urea Nitrogen 18 mg/dL (7-18); Bicarbonate 27 mmol/L (21-32); Bilirubin Direct < 0.1 mg/dL (0-0.2); Bilirubin Total 0.3 mg/dL (0.2-1.0); CKMB Creatine Kinase MB < 1.0 ng/mL (0.3-3.6); Creatine Phosphokinase 26 U/L (26-192); Glucose Level 106 mg/dL (74-106); Lipase 49 U/L (73-393); Protein, Total 6.8 g/dL (6.4-8.2); Sodium Level 138 mmol/L (136-145); Troponin (Emerg Dept Use Only) < 0.02 ng/mL (0.0-0.045)
--- NOTE | 2020-08-27 08:01 | RAD REPORT ---
EXAM DESCRIPTION: RAD - Chest Single View - 08/27/2020 7:02 am CLINICAL HISTORY: COUGH, fever COMPARISON: June 29 ; July 2019 TECHNIQUE: AP portable chest image was obtained 08/27/2020 7:02 am . FINDINGS: Lung volumes are low. Interstitial opacification is present believed to be baseline. Patte rn is less prominent than the most recent comparison and similar to a baseline appearing 2018 study. Heart and vasculature are normal. No measurable pleural effusion and no pneumothorax. No acute bony a bnormality seen. No acute aortic findings suspected. IMPRESSION: No acute cardiopulmonary process.
--- NOTE | 2020-08-27 08:51 | RAD REPORT ---
EXAM DESCRIPTION: CT - Abdomen Pelvis W Contrast - 08/27/2020 8:21 am CLINICAL HISTORY: ABD PAIN COMPARISON: Abdomen Pelvis W Contrast dated 08/02/2019 TECHNIQUE: Biphasic, helical CT imaging of the abdomen and pelvis was performed following 100 ml non -ionic IV contrast. No oral contrast given. All CT scans are performed using dose optimization technique as appropriate and may include automated exposure control or mA/KV adjustment according to patient size. FINDINGS: No suspicious findings in the lung bases. The liver, spleen, and pancreas show no suspicious findings. Cholecystectomy clips are present. Pneum obilia is present. Biliary tree dilatation is present increased over 2019 but not outside of normal r blanquita for a post cholecystectomy patient. This degree of dilatation is likely the reservoir effect trina t can be seen after a cholecystectomy. Correlation is needed with any biliary obstructive clinical or laboratory findings. Symmetric renal function is seen with no hydronephrosis or suspicious renal mass. No pyelonephritis o r acute parenchymal process. A 20 millimeter nonobstructing staghorn calculus is present upper pole o f the right kidney. Mostly contracted urinary bladder shows no suspicious findings. No adrenal abnorm alities. Fluid-filled stomach shows no wall thickening or mass. No small bowel abnormality. No findings for ap pendicitis. Patient has a very tortuous and redundant colon. There is a large amount of stool present mildly dilating the entirety of the colon from cecum through descending colon. Similar pattern was p resent in 2019. No free air, free fluid or inflammatory stranding. No hernia, mass or bulky lymphadenopathy. No suspicious bony findings. IMPRESSION: No obstruction, free air or surgically emergent finding. Biliary tree dilatation is present in this post cholecystectomy patient. This is increased from 2019 but still within normal range for a post cholecystectomy patient. Biliary tree dilatation is likely the reservoir effect that can occur after a cholecystectomy. Correl ation is needed with any clinical findings or laboratory findings for biliary obstruction. Large amount of stool filling and mildly dilating the colon from cecum to descending colon. No focal mass or wall thickening. This large stool volume finding was present on 2019 study as well.
--- NOTE | 2020-08-27 09:38 | ER ---
Nurse's Notes [facility] Name: Dulce Cerna Age: 64 yrs Sex: Female : 1955 Arrival Date: 08/27/2020 Time: 06:05 Bed 14 Private MD: Brayan Valladares E Diagnosis: Fever, unspecified;Dehydration;Dyspnea, unspecified Presentation: 08/27 06:14 Chief complaint: Patient states: Fever x 2 days now, Have headache and nausea and sg vomiting that started over night, worsening this morning. Coronavirus screen: Client denies travel out of the [place] in the last 14 days. At this time, the client does not indicate any symptoms associated with coronavirus-19. Ebola Screen: Patient negative for fever greater than or equal to 101.5 degrees Fahrenheit, and additional compatible Ebola Virus Disease symptoms Patient denies exposure to infectious person. Patient denies travel to an Ebola-affected area in the 21 days before illness onset. No symptoms or risks identified at this time. Initial Sepsis Screen: Does the patient meet any 2 criteria? No. Patient's initial sepsis screen is negative. Does the patient have a suspected source of infection? Yes:. Risk Assessment: Do you want to hurt yourself or someone else? Patient reports no desire to harm self or others. Onset of symptoms was August 27, 2020. Care prior to arrival: None. Mechanism of Injury:. Transition of care: patient was not received from another setting of care. 06:14 Method Of Arrival: Ambulatory sg 06:14 Acuity: TRACY 3 sg Triage Assessment: 06:17 General: Appears uncomfortable, Behavior is appropriate for age. ea 06:18 Neuro: Level of Consciousness is awake, alert, obeys commands. ea Historical: - Allergies: 06:16 "pain pills"; sg 06:16 PENICILLINS; sg 06:16 Sulfa (Sulfonamide Antibiotics); sg - Home Meds: 06:24 levothyroxine 25 mcg tab 1 tab once daily [Active]; fludrocortisone 0.1 mg oral tab 1 sg tab once daily for Symptomatic Orthostatic Hypotension [Active]; duloxetine 60 mg oral cpDR 2 caps once daily [Active]; hydrocortisone 10 mg Oral tab [Active]; oxycodone 10 mg Oral tab 1 tab three times a day [Active]; omeprazole 40 mg Oral cpDR 1 cap once daily [Active]; aspirin 81 mg Oral TbEC 1 tab once daily [Active]; clonazepam 1 mg Oral tab 1 tab 2 times per day [Active]; rosuvastatin 10 mg oral tab 1 tab once daily [Active]; estradiol 2 mg Oral tab 1 tab once daily [Active]; amitriptyline 100 mg Oral tab 1 tab once daily [Active]; zaleplon 5 mg oral cap 1 cap once daily [Active]; promethazine 25 mg Oral tab 1 tab 2 times per day [Active]; - PMHx: 06:16 addisons; Chronic pain; Depression; Early Dementia; Hyperlipidemia; Irritable bowel sg syndrome; TIA; - Immunization history:: Adult Immunizations up to date. - Social history:: Smoking status: Patient denies any tobacco usage or history of. Screenin:18 Abuse screen: Denies threats or abuse. Nutritional screening: No deficits noted. ea Tuberculosis screening: No symptoms or risk factors identified. Fall Risk None identified. Assessment: 07:00 General: Appears in no apparent distress. uncomfortable, ill, Behavior is cooperative, bp appropriate for age, anxious. Pain: Complains of pain in head and umbilical area and epigastric area. Neuro: No deficits noted. Cardiovascular: Rhythm is sinus tachycardia. Respiratory: No deficits noted. GI: Reports nausea, vomiting. : No signs and/or symptoms were reported regarding the genitourinary system. EENT: No deficits noted. Derm: No deficits noted. Musculoskeletal: No deficits noted. 08:33 Reassessment: PT RETURNED FROM CT. bp 10:32 Reassessment: Called Dr Mcdonnell to get admission orders placed. sv Vital Signs: 06:17 BP 141 / 87; Pulse 115; Resp 19; Temp 103.3; Pulse Ox 97% on R/A; Weight 74.84 kg; ea Height 5 ft. 2 in. (157.48 cm); 07:12 BP 113 / 76; Pulse 92; Resp 16; Pulse Ox 94% ; bp 08:47 BP 127 / 47; Pulse 91; Resp 16; Pulse Ox 97% ; bp 09:15 BP 116 / 95; Pulse 91; Resp 14; Pulse Ox 96% ; sv 10:00 BP 130 / 66; Pulse 91; Resp 18; Pulse Ox 97% ; sv 12:00 BP 124 / 68; Pulse 81; Resp 15; Pulse Ox 96% ; sv 13:00 BP 118 / 98; Pulse 79; Resp 17; Pulse Ox 96% ; sv 14:00 BP 102 / 45; Pulse 79; Resp 17; Pulse Ox 99% ; sv 14:45 BP 109 / 57; Pulse 76; Pulse Ox 96% on R/A; vg1 06:17 Body Mass Index 30.18 (74.84 kg, 157.48 cm) ea ED Course: 06:05 Patient arrived in ED. am2 06:06 Brayan Valladares MD is Private Physician. am2 06:14 Arm band placed on. sg 06:15 Triage completed. sg 06:18 Patient has correct armband on for positive identification. Bed in low position. Call ea light in reach. Side rails up X 1. Pulse ox on. NIBP on. 06:39 Gopal Joshi MD is Attending Physician. [facility] 07:03 Chest Single View XRAY In Process Unspecified. EDMS 07:03 Moustapha Gomez RN is Primary Nurse. bp 07:10 Inserted saline lock: 20 gauge in left EJ, using aseptic technique. Blood collected. bp 07:31 Attending Physician role handed off by Gopal Joshi MD rn 07:31 Brad Hernández MD is Attending Physician. rn 08:21 CT Abd/Pelvis - IV Contrast Only In Process Unspecified. EDMS 09:36 Estella Mcdonnell MD is Hospitalizing Provider. rn 10:20 Repeat lab(s) drawn. by ca, sent to lab. vg1 14:48 No provider procedures requiring assistance completed. Patient admitted, IV remains in sv place. intact. Administered Medications: 07:10 Drug: NS 0.9% (30 ml/kg) 30 ml/kg Route: IV; Rate: bolus; Site: left jugular; bp 07:10 Drug: Tylenol 1000 mg Route: PO; bp 07:10 Drug: Zofran (Ondansetron) 4 mg Route: IVP; Site: left jugular; bp 07:10 Drug: Pepcid 20 mg Route: IVP; Site: left jugular; bp 07:10 Drug: morphine 4 mg Route: IVP; Site: left jugular; bp 07:10 Drug: LevaQUIN 500 mg Volume: 100 ml; Route: IVPB; Infused Over: 60 mins; Site: left bp jugular; Outcome: 09:37 Decision to Hospitalize by Provider. rn 13:49 Patient left the ED. ll1 14:47 Admitted to ICU accompanied by tech, via stretcher, room ER #9, with chart, Report sv called to Teodora RN 14:47 Condition: stable 14:47 Instructed on the need for admit. 15:14 Patient left the ED. vg1 Signatures: Dispatcher [employer] EDMS Barbara Guillaume, RN RN Avery Vela, RN RN Brad French MD MD rn Moreno, Amanda am2 Antunez, Elena RN Moustapha Pena ea, RN RN Ana Phillip RN RN vg1 Michael Godfrey, RN RN ll1 Gopal Joshi MD MD [id number]
--- NOTE | 2020-08-27 09:38 | EDPHYS ---
Physician Documentation [facility] Name: Dulce Cerna Age: 64 yrs Sex: Female : 1955 Arrival Date: 08/27/2020 Time: 06:05 Bed 14 Private MD: Brayan Valladares E ED Physician Brad Hernández HPI: 08/27 06:43 This 64 yrs old Female presents to ER via Ambulatory with complaints of mh7 Fever, Abdominal Pain. Nausea/Vomiting. 06:54 The patient presents with abdominal pain in the upper abdomen. Onset: The mh7 symptoms/episode began/occurred last night, at 22:00. The symptoms do not radiate. Associated signs and symptoms: Pertinent positives: nausea and vomiting, fever, Pertinent negatives: anorexia, blood in stools, chest pain, constipation, diarrhea, dysuria, headache, hematuria, palpitations, shortness of breath, vaginal discharge, vomiting blood. Associated signs and symptoms: Pertinent negatives: Cough. The symptoms are described as intermittent, vague, waxing/waning. Modifying factors: The symptoms are alleviated by nothing, the symptoms are aggravated by nothing. Severity of pain: At its worst the pain was moderate last night, in the emergency department the pain is unchanged. Historical: - Allergies: 06:16 "pain pills"; sg 06:16 PENICILLINS; sg 06:16 Sulfa (Sulfonamide Antibiotics); sg - Home Meds: 06:24 levothyroxine 25 mcg tab 1 tab once daily [Active]; fludrocortisone 0.1 mg oral tab 1 sg tab once daily for Symptomatic Orthostatic Hypotension [Active]; duloxetine 60 mg oral cpDR 2 caps once daily [Active]; hydrocortisone 10 mg Oral tab [Active]; oxycodone 10 mg Oral tab 1 tab three times a day [Active]; omeprazole 40 mg Oral cpDR 1 cap once daily [Active]; aspirin 81 mg Oral TbEC 1 tab once daily [Active]; clonazepam 1 mg Oral tab 1 tab 2 times per day [Active]; rosuvastatin 10 mg oral tab 1 tab once daily [Active]; estradiol 2 mg Oral tab 1 tab once daily [Active]; amitriptyline 100 mg Oral tab 1 tab once daily [Active]; zaleplon 5 mg oral cap 1 cap once daily [Active]; promethazine 25 mg Oral tab 1 tab 2 times per day [Active]; - PMHx: 06:16 addisons; Chronic pain; Depression; Early Dementia; Hyperlipidemia; Irritable bowel sg syndrome; TIA; - Immunization history:: Adult Immunizations up to date. - Social history:: Smoking status: Patient denies any tobacco usage or history of. ROS: 06:54 Eyes: Negative for injury, pain, redness, and discharge, ENT: Negative for injury, mh7 pain, and discharge, Neck: Negative for injury, pain, and swelling, Cardiovascular: Negative for chest pain, palpitations, and edema, Back: Negative for injury and pain, : Negative for injury, bleeding, discharge, and swelling, MS/Extremity: Negative for injury and deformity, Skin: Negative for injury, rash, and discoloration, Neuro: Negative for headache, weakness, numbness, tingling, and seizure, Psych: Negative for depression, anxiety, suicide ideation, homicidal ideation, and hallucinations, Allergy/Immunology: Negative for hives, rash, and allergies, Endocrine: Negative for neck swelling, polydipsia, polyuria, polyphagia, and marked weight changes, Hematologic/Lymphatic: Negative for swollen nodes, abnormal bleeding, and unusual bruising. Exam: 06:54 Head/Face: Normocephalic, atraumatic. Eyes: Pupils equal round and reactive to light, mh7 extra-ocular motions intact. Lids and lashes normal. Conjunctiva and sclera are non-icteric and not injected. Cornea within normal limits. Periorbital areas with no swelling, redness, or edema. Neck: Trachea midline, no thyromegaly or masses palpated, and no cervical lymphadenopathy. Supple, full range of motion without nuchal rigidity, or vertebral point tenderness. No Meningismus. Chest/axilla: Normal chest wall appearance and motion. Nontender with no deformity. No lesions are appreciated. 06:54 Back: No spinal tenderness. No costovertebral tenderness. Full range of motion. Skin: Warm, dry with normal turgor. Normal color with no rashes, no lesions, and no evidence of cellulitis. MS/ Extremity: Pulses equal, no cyanosis. Neurovascular intact. Full, normal range of motion. Neuro: Awake and alert, GCS 15, oriented to person, place, time, and situation. Cranial nerves II-XII grossly intact. Motor strength 5/5 in all extremities. Sensory grossly intact. Cerebellar exam normal. Normal gait. Psych: Awake, alert, with orientation to person, place and time. Behavior, mood, and affect are within normal limits. 06:54 Constitutional: The patient appears in no acute distress, alert, awake, uncomfortable. 06:54 Cardiovascular: Rate: tachycardic, Rhythm: regular, Pulses: no pulse deficits are appreciated, Heart sounds: normal, normal S1and S2, Edema: is not appreciated, JVD: is not appreciated. 06:54 Respiratory: the patient does not display signs of respiratory distress, Respirations: normal, Breath sounds: rhonchi, that are mild, are scattered, Respiratory rate: 19 06:54 Abdomen/GI: Inspection: distension, that is mild, Bowel sounds: normal, in all quadrants, Palpation: moderate abdominal tenderness, in the epigastric area and umbilical area, Rectal exam: the exam is deferred, because of patient request, Indicators: McBurney's point is not tender, Perkins's sign is negative, Rovsing's sign is negative, Obturator sign is negative, Psoas sign is negative, Liver: no appreciated palpable abnormalities, Hernia: not appreciated. 08:10 ECG was reviewed by the Attending Physician. rn Vital Signs: 06:17 BP 141 / 87; Pulse 115; Resp 19; Temp 103.3; Pulse Ox 97% on R/A; Weight 74.84 kg; ea Height 5 ft. 2 in. (157.48 cm); 07:12 BP 113 / 76; Pulse 92; Resp 16; Pulse Ox 94% ; bp 08:47 BP 127 / 47; Pulse 91; Resp 16; Pulse Ox 97% ; bp 09:15 BP 116 / 95; Pulse 91; Resp 14; Pulse Ox 96% ; sv 10:00 BP 130 / 66; Pulse 91; Resp 18; Pulse Ox 97% ; sv 12:00 BP 124 / 68; Pulse 81; Resp 15; Pulse Ox 96% ; sv 13:00 BP 118 / 98; Pulse 79; Resp 17; Pulse Ox 96% ; sv 14:00 BP 102 / 45; Pulse 79; Resp 17; Pulse Ox 99% ; sv 14:45 BP 109 / 57; Pulse 76; Pulse Ox 96% on R/A; vg1 06:17 Body Mass Index 30.18 (74.84 kg, 157.48 cm) ea MDM: 06:44 Patient medically screened. [facility] 07:05 Differential diagnosis: bowel obstruction, diverticulitis, non-specific abd pain, mh7 pancreatitis, Peptic Ulcer Disease, Perf. Duodenal Ulcer, Perf. Gastric Ulcer, Pyelonephritis, Ureterolithiasis, urinary tract infection. Transition of care: After a detail discussion of the patient's case, care is transferred to Brad Hernández MD. 09:35 Data reviewed: vital signs, nurses notes, lab test result(s), radiologic studies, CT rn scan, plain films, and as a result, I will admit patient. Counseling: I had a detailed discussion with the patient and/or guardian regarding: the historical points, exam findings, and any diagnostic results supporting the discharge/admit diagnosis, lab results, radiology results, the need for further work-up and treatment in the hospital. Response to treatment: There is no appreciated change of the patient's symptoms at this time, and as a result, I will admit patient. Admission orders: after a detailed discussion of the patient's condition and case, the admit orders are written by me. ED course: Pt still doesn't feel well, elevated lactate and procalcitonin, no clear etiology of infection source on cxr and ct abdomen, admitted to Dr. Mcdonnell for further evaluation and treatment, urine still pending. . 08/27 06:39 Order name: Amylase, Serum; Complete Time: 08:07 [facility] 08/27 06:39 Order name: Basic Metabolic Panel; Complete Time: 08:07 [facility] 08/27 06:39 Order name: Blood Culture Adult (2) [facility] 08/27 06:39 Order name: CBC with Diff; Complete Time: 08:07 [facility] 08/27 06:39 Order name: Ckmb; Complete Time: 08:07 [facility] 08/27 06:39 Order name: CPK; Complete Time: 08:07 [facility] 08/27 06:39 Order name: Lactate; Complete Time: 08:07 [facility] 08/27 06:39 Order name: LFT's; Complete Time: 08:07 [facility] 08/27 06:39 Order name: Lipase; Complete Time: 08:07 [facility] 08/27 06:39 Order name: Procalcitonin; Complete Time: 08:52 [facility] 08/27 06:39 Order name: Protime (+inr); Complete Time: 08:07 7 08/27 06:39 Order name: Ptt, Activated; Complete Time: 08:07 7 08/27 06:39 Order name: Troponin (emerg Dept Use Only); Complete Time: 08:07 7 08/27 06:39 Order name: Urine Microscopic Only; Complete Time: 21:26 7 08/27 06:39 Order name: Chest Single View XRAY; Complete Time: 08:07 7 08/27 07:04 Order name: CT Abd/Pelvis - IV Contrast Only; Complete Time: 08:52 7 08/27 07:32 Order name: COVID-19 rn 08/27 07:32 Order name: Flu; Complete Time: 21:26 rn 08/27 10:22 Order name: Urine Dipstick--Ancillary (enter results); Complete Time: 21:26 bd 08/27 10:45 Order name: CBC with Automated Diff EDMS 08/27 10:45 Order name: CBC with Automated Diff EDMS 08/27 10:45 Order name: Comprehensive Metabolic Panel EDMS 08/27 10:45 Order name: Comprehensive Metabolic Panel EDMS 08/27 11:02 Order name: Lactate Sepsis 2 HR Follow-up; Complete Time: 21:26 EDMS 08/27 13:28 Order name: SARS-COV-2 RT PCR; Complete Time: 21:26 EDMS 08/27 06:39 Order name: Accucheck; Complete Time: 07:14 7 08/27 06:39 Order name: Cardiac monitoring; Complete Time: 07:14 7 08/27 06:39 Order name: EKG - Nurse/Tech; Complete Time: 07:14 7 08/27 06:39 Order name: IV Saline Lock - Large Bore; Complete Time: 07:14 7 08/27 06:39 Order name: Labs collected and sent; Complete Time: 07:14 7 08/27 06:39 Order name: O2 Per Protocol; Complete Time: 07:14 7 08/27 06:39 Order name: O2 Sat Monitoring; Complete Time: 07:14 7 08/27 06:39 Order name: Urine Dipstick-Ancillary (obtain specimen); Complete Time: 10:31 7 08/27 08:30 Order name: EKG Electrocardiogram; Complete Time: 10:16 EDMS 08/27 10:02 Order name: Labs collected and sent: collect lactate; Complete Time: 10:16 bd 08/27 10:45 Order name: CONS Pharmacy Consult EDTX 08/27 10:45 Order name: Clear Liquid EDTX EC:10 Rate is 95 beats/min. Rhythm is regular. QRS [place] is Normal. [place] interval is normal. QRS rn interval is normal. QT interval is normal. No Q waves. T waves are Normal. No ST changes noted. Clinical impression: NSR w/ Non-specific ST/T Changes. Interpreted by me. Reviewed by me. Administered Medications: 07:10 Drug: NS 0.9% (30 ml/kg) 30 ml/kg Route: IV; Rate: bolus; Site: left jugular; bp 07:10 Drug: Tylenol 1000 mg Route: PO; bp 07:10 Drug: Zofran (Ondansetron) 4 mg Route: IVP; Site: left jugular; bp 07:10 Drug: Pepcid 20 mg Route: IVP; Site: left jugular; bp 07:10 Drug: morphine 4 mg Route: IVP; Site: left jugular; bp 07:10 Drug: LevaQUIN 500 mg Volume: 100 ml; Route: IVPB; Infused Over: 60 mins; Site: left bp jugular; Disposition: 08/27/20 09:37 Hospitalization ordered by Estella Mcdonnell for Observation. Preliminary diagnosis are Fever, unspecified, Dehydration, Dyspnea, unspecified. - Bed requested for Telemetry/MedSurg (observation). - Status is Observation. vg1 - Condition is Stable. - Problem is new. - Symptoms are unchanged. Signatures: Dispatcher [employer] EDTX Alisa Godwin Steven, RN RN Brad French MD MD rn Peltier, Brian, RN RN bp Garcia, Victoria, RN RN vg1 Michael Godfrey RN RN ll1 Gopal Joshi MD MD mh7 Corrections: (The following items were deleted from the chart) 13:49 09:37 Hospitalization Ordered by Estella Mcdonnell MD for Observation. Preliminary ll1 diagnosis is Fever, unspecified; Dehydration; Dyspnea, unspecified. Bed requested for Telemetry/MedSurg (observation). Status is Observation. Condition is Stable. Problem is new. Symptoms are unchanged. rn 15:14 13:49 08/27/2020 09:37 Hospitalization Ordered by Estella Mcdonnell MD for Observation. vg1 Preliminary diagnosis is Fever, unspecified; Dehydration; Dyspnea, unspecified. Bed requested for Telemetry/MedSurg (observation). Status is Observation. Condition is Stable. Problem is new. Symptoms are unchanged. ll1
[2020-08-27 10:28] LABS: Urine Blood NEGATIVE (NEG); Urine Glucose NEGATIVE (NEG); Urine Protein NEGATIVE (NEG); Urine pH 6.5 (5.0-7.0)
[2020-08-27] MEDS: NA CHLORIDE 0.9% 1,000 ML IV SCH (11:00)
[2020-08-27] MEDS: MORPHINE 4 MG/ML SYR IV PRN ×2 (15:24→22:46)
[2020-08-27] MEDS: ONDANSETRON 4 MG/2 ML VIAL IV PRN ×2 (15:25→22:47)
[2020-08-27 16:12] VITALS: BMI 30.2
[2020-08-27 17:25] LABS: Urine Bacteria 20-50 /HPF (<20); Urine Culture Reflex Order REFLEXED; Urine RBC <5 /HPF (NONE SEEN)
[2020-08-27] MEDS ORDERED: INFLUENZA VACCINE (for 3y+) 0.5 ML DOSE IMVAC ONE (19:00)
[2020-08-27] MEDS: AMITRIPTYLINE 50 MG TAB PO SCH (23:35)
[2020-08-27] MEDS: clonazePAM 1 MG TAB PO PRN (23:36)
[2020-08-28] MEDS: ACETAMINOPHEN 500 MG TAB PO PRN ×3 (00:03→23:45)
[2020-08-28] MEDS: NA CHLORIDE 0.9% 1,000 ML IV SCH (00:04)
[2020-08-28 04:04] LABS: Absolute Lymphocytes (CBC) 1.7 K/uL (0.7-4.9); Basophils % 0.5 % (0-1.3); Lymphocytes % 26.5 % (15.3-44.8); MPV 9.1 fL (7.6-11.3); RBC Red Blood Cell Count 3.43 M/uL (3.86-4.86)
[2020-08-28 04:22] LABS: ALT/SGPT 22 U/L (12-78); AST/SGOT 24 U/L (15-37); Albumin 2.9 g/dL (3.4-5.0); Alkaline Phosphatase 74 U/L (45-117); BUN Blood Urea Nitrogen 8 mg/dL (7-18); Bicarbonate 28 mmol/L (21-32); Bilirubin Total 0.2 mg/dL (0.2-1.0); Glucose Level 84 mg/dL (74-106); Potassium 3.5 mmol/L (3.5-5.1); Protein, Total 6.4 g/dL (6.4-8.2); Sodium Level 143 mmol/L (136-145)
[2020-08-28] MEDS: PANTOPRAZOLE 40MG TABLET PO SCH (05:09)
[2020-08-28] MEDS: LEVOTHYROXINE SOD 0.025 MG TAB PO SCH (06:01)
[2020-08-28] MEDS: MORPHINE 4 MG/ML SYR IV PRN ×4 (06:02→20:36)
--- NOTE | 2020-08-28 08:01 | P.HP ---
Certification for Inpatient Patient admitted to: Inpatient With expected LOS: >2 Midnights Patient will require the following post-hospital care: None Practitioner: I am a practitioner with admitting privileges, knowledge of patient current condition, hospital course, and medical plan of care. Services: Services provided to patient in accordance with Admission requirements found in Title 42 Section 412.3 of the Code of Federal Regulations Patient History Date of Service: 08/27/20 Reason for admission: Intractable nausea and vomiting; abdominal pain; fever History of Present Illness: Patient is a 64-year-old female who presents to the hospital with fever of 103. She has been lethargic and weak and not feeling like herself. She was having some abdominal discomfort last night. She took some Tylenol and went to sleep. However, when she woke up she was still not feeling well. Her family took her temperature and it was 102. When she got to the hospital it was 103.8. In the emergency room, they did imaging studies and lab workup. Her lactic acid was elevated. Her procalcitonin level was elevated. However, her CT scan of the abdomen and pelvis and chest x-ray did not reveal any abnormalities. She had no meningeal signs. She say she has been constipated. She has some nausea and vomiting as well. At this time, we orally have a diagnosis of the etiology of her high-grade fever. Will go ahead and start her on IV fluids and beebe culture her. We will probably start her on some antibiotics as well. She will be admitted to the hospital as an inpatient. Allergies Penicillins Allergy (Verified 03/16/19 23:40) Shortness of breath Sulfa (Sulfonamide Antibiotics) [Sulfa(Sulfonamide Antibiotics)] Allergy ( Verified 03/16/19 23:40) Shortness of breath NSAIDS Adverse Reaction (Uncoded 03/16/19 23:40) Kidney Problems Home Medications: Amitriptyline HCl 100 mg PO DAILY 08/27/20 Aspirin Chewable [Aspirin Chewable*] 81 mg PO DAILY 08/27/20 Duloxetine HCl 120 mg PO DAILY 08/27/20 Estradiol 2 mg PO DAILY 08/27/20 Fludrocortisone [Florinef *] 0.1 mg PO DAILY 08/27/20 Hydrocortisone [Cortef*] 10 mg PO 1400 08/27/20 Hydrocortisone [Cortef*] 20 mg PO BREAKFAST 08/27/20 Levothyroxine Sodium 25 mcg PO DAILY 08/27/20 Omeprazole [Prilosec] 40 mg PO DAILY 08/27/20 Oxycodone HCl [Oxycontin] 10 mg PO TID 08/27/20 Promethazine HCl 25 mg PO BIDP PRN 08/27/20 Rosuvastatin Calcium 10 mg PO DAILY 08/27/20 Zaleplon 5 mg PO DAILY 08/27/20 clonazePAM [Klonopin*] 1 mg PO BIDP PRN 08/27/20 - Past Medical/Surgical History Has patient received pneumonia vaccine in the past: Yes Diabetic: No -: [place]'s -: Irritable Bowel Syndrome -: TIA -: Chronic back pain -: hyperlipidemia -: CVA -: hypothyroidism -: Cholecystectomy -: Appendectomy -: -: Hysterectomy -: Exploratory laparotomy - Family History Mother Medical History: Stroke, Other (see notes) Notes: Asthma. Rheumatoid Arthritis - Social History Smoking Status: Never smoker Alcohol use: No CD- Drugs: No Caffeine use: No Place of Residence: Home Review of Systems 10-point ROS is otherwise unremarkable Physical Examination - Vital Signs Temperature: 97.7 F Blood Pressure: 153/76 Pulse: 80 Respirations: 18 Pulse Ox (%): 95 - Physical Exam General: Alert, In no apparent distress, Oriented x3 HEENT: Atraumatic, PERRLA, Mucous membr. moist/pink, EOMI, Sclerae nonicteric Neck: Supple, 2+ carotid pulse no bruit, No LAD, Without JVD or thyroid abnormality Respiratory: Clear to auscultation bilaterally, Normal air movement Cardiovascular: Regular rate/rhythm, Normal S1 S2, Systolic murmur Gastrointestinal: Normal bowel sounds, Soft and benign, Non-distended, No rebound, No guarding, Tenderness Musculoskeletal: No clubbing, No swelling, No tenderness Integumentary: No rashes Neurological: Normal gait, Normal speech, Normal strength at 5/5 x4 extr, Normal tone, Sensation intact, Cranial nerves 3-12 intact, Normal affect Lymphatics: No axilla or inguinal lymphadenopathy - Studies Microbiology Data (last 24 hrs): 08/27/20 09:10 Nasopharnyx Influenza Type A Antigen Screen - Final 08/27/20 09:10 Nasopharnyx Influenza Type B Antigen Screen - Final Assessment & Plan - Problems (Diagnosis) (1) Abdominal pain Current Visit: No Status: Acute (2) Fever Onset Date: 09/08/16 Current Visit: No Status: Acute Qualifiers: Fever type: drug-induced Qualified Code(s): R50.2 - Drug induced fever (3) Generalized weakness Current Visit: No Status: Acute (4) H/O: CVA (cerebrovascular accident) Current Visit: No Status: Acute (5) HTN (hypertension) Current Visit: No Status: Acute (6) [place] disease Onset Date: 09/08/16 Current Visit: No Status: Chronic (7) Depression with anxiety Current Visit: No Status: Chronic (8) Hyperlipidemia Onset Date: 11/01/18 Current Visit: No Status: Chronic Qualifiers: Hyperlipidemia type: mixed hyperlipidemia Qualified Code(s): E78.2 - Mixed hyperlipidemia (9) Irritable bowel disease Onset Date: 04/08/18 Current Visit: No Status: Chronic Qualifiers: Irritable bowel syndrome type: unspecified - Plan Plan: 1. Continue with gentle hydration 2. Antipyretics 3. Panculture-blood culture, urine culture, patient may need repeat chest x-ray 4. COVID-19 testing. Flu testing 5. Monitor for any signs of rash and check inflammatory markers 6. GI and DVT prophylaxis Discharge Plan: Home Plan to discharge in: Greater than 2 days - Advance Directives Does patient have a Living Will: No Does patient have a Durable POA for Healthcare: No - Code Status/Comfort Care Code Status Assessed: Yes Code Status: Full Code Critical Care: No Time Spent Managing PTS Care (In Minutes): 45
[2020-08-28] MEDS: ROSUVASTATIN 10 MG TAB PO SCH (08:17)
[2020-08-28] MEDS: AMITRIPTYLINE 50 MG TAB PO SCH (08:17)
[2020-08-28] MEDS: DULOXETINE 30 MG CAP PO SCH (08:17)
[2020-08-28] MEDS: ASPIRIN 81 MG CHEWABLE TABLET PO SCH (08:17)
[2020-08-28] MEDS: ONDANSETRON 4 MG/2 ML VIAL IV PRN ×3 (08:17→20:35)
[2020-08-28] MEDS: FLUDROCORTISONE 0.1 MG TAB PO SCH (08:30)
[2020-08-28] MEDS: HYDROCORTISONE 10 MG TAB PO SCH (08:30)
[2020-08-28] MEDS ORDERED: HOME MED 1 EA UNK (Omeprazole [Prilosec] 40 MG) PO SCH (09:00)
[2020-08-28] MEDS ORDERED: ZALEPLON 5 MG PO SCH (09:00)
[2020-08-28] MEDS: clonazePAM 1 MG TAB PO PRN ×2 (09:01→21:51)
[2020-08-28 09:18] VITALS: O2SAT 94
[2020-08-28] MEDS ORDERED: HYDROCORTISONE 10 MG TAB PO SCH (14:00)
[2020-08-28] MEDS ORDERED: POLYETHYL GLY 3350 17 GM/DOSE PO ONE (17:00)
[2020-08-28] MEDS ORDERED: BISACODYL E.C. 5 MG TAB PO ONE (17:00)
[2020-08-28] MEDS ORDERED: ZOLPIDEM TARTRATE 5 MG TABLET PO SCH (21:00)
[2020-08-28] MEDS ORDERED: DIPHENHYDRAMINE 25 MG TAB/CAP PO ONE (21:07)
[2020-08-29] MEDS: MORPHINE 4 MG/ML SYR IV PRN ×2 (02:13→06:23)
[2020-08-29] MEDS: ONDANSETRON 4 MG/2 ML VIAL IV PRN ×2 (02:14→06:23)
[2020-08-29] MEDS: PANTOPRAZOLE 40MG TABLET PO SCH (05:30)
[2020-08-29 07:57] VITALS: BP 161/80; TEMP 97.9
[2020-08-29] MEDS: DULOXETINE 30 MG CAP PO SCH (07:59)
[2020-08-29] MEDS: ROSUVASTATIN 10 MG TAB PO SCH (07:59)
[2020-08-29] MEDS: ASPIRIN 81 MG CHEWABLE TABLET PO SCH (07:59)
[2020-08-29] MEDS: LEVOTHYROXINE SOD 0.025 MG TAB PO SCH (07:59)
[2020-08-29] MEDS: HYDROCORTISONE 10 MG TAB PO SCH (08:00)
[2020-08-29] MEDS: FLUDROCORTISONE 0.1 MG TAB PO SCH (08:00)
[2020-08-29] MEDS: AMITRIPTYLINE 50 MG TAB PO SCH (08:01)
[2020-08-29] MEDS: ACETAMINOPHEN 500 MG TAB PO PRN (08:04)
--- NOTE | 2020-08-29 08:09 | P.PN ---
Subjective Date of Service: 08/28/20 Patient still having some abdominal discomfort. She did have a large amount of stool on her CT scan and we have given her some laxatives. Her fever has not gone back up to 103. She states she is not feeling any better. However, her workup is been unremarkable. She may need to do further outpatient workup with GI. Will try to get her home later today. Review of Systems 10-point ROS is otherwise unremarkable Physical Examination - Vital Signs Temperature: 97.9 F Blood Pressure: 161/80 Pulse: 80 Respirations: 18 Pulse Ox (%): 94 - Physical Exam General: Alert, In no apparent distress, Oriented x3 Respiratory: Clear to auscultation bilaterally, Normal air movement Cardiovascular: Regular rate/rhythm, Normal S1 S2 Gastrointestinal: Normal bowel sounds, Soft and benign, Non-distended, No rebo und, No guarding, Tenderness Musculoskeletal: No clubbing, No swelling Neurological: Normal strength at 5/5 x4 extr, Normal tone, Sensation intact, Cr anial nerves 3-12 intact Assessment & Plan - Problems (Diagnosis) (1) Abdominal pain Current Visit: No Status: Acute (2) Fever Onset Date: 09/08/16 Current Visit: No Status: Acute Qualifiers: Fever type: drug-induced Qualified Code(s): R50.2 - Drug induced fever (3) Generalized weakness Current Visit: No Status: Acute (4) H/O: CVA (cerebrovascular accident) Current Visit: No Status: Acute (5) HTN (hypertension) Current Visit: No Status: Acute (6) [place] disease Onset Date: 09/08/16 Current Visit: No Status: Chronic (7) Depression with anxiety Current Visit: No Status: Chronic (8) Hyperlipidemia Onset Date: 11/01/18 Current Visit: No Status: Chronic Qualifiers: Hyperlipidemia type: mixed hyperlipidemia Qualified Code(s): E78.2 - Mixed hyperlipidemia (9) Irritable bowel disease Onset Date: 04/08/18 Current Visit: No Status: Chronic Qualifiers: Irritable bowel syndrome type: unspecified - Plan Plan: 1. Continue with gentle hydration; patient still having some abdominal discomfort and because of large amount of stool on CT scan will go ahead and do laxatives and see if that helps her. 2. Antipyretics; patient no longer having fevers. Will monitor closely 3. Panculture-blood culture, urine culture, patient may need repeat chest x-ray; so far cultures have been negative 4. COVID-19 testing. Flu testing; COVID-19 test and flu test were negative 5. Monitor for any signs of rash and check inflammatory markers; inflammatory markers were slightly elevated. No rash. Anticipate discharge today. Most likely viral syndrome. 6. GI and DVT prophylaxis Discharge Plan: Home Plan to discharge in: 48 Hours - Advance Directives Does patient have a Living Will: No Does patient have a Durable POA for Healthcare: No - Code Status/Comfort Care Code Status: Full Code Critical Care: No Time Spent Managing PTS Care (In Minutes): 30
--- NOTE | 2020-08-29 08:13 | P.DS ---
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 She has been lethargic and weak and not feeling like herself. She was having some abdominal discomfort last night. She took some Tylenol and went to sleep. However, when she woke up she was still not feeling well. Her family took her temperature and it was 102. When she got to the hospital it was 103.8. In the emergency room, they did imaging studies and lab workup. Her lactic acid was elevated. Her procalcitonin level was elevated. However, her CT scan of the abdomen and pelvis and chest x-ray did not reveal any abnormalities. She had no meningeal signs. She say she has been constipated. She has some nausea and vomiting as well. At this time, we orally have a diagnosis of the etiology of her high-grade fever. Will go ahead and start her on IV fluids and beebe culture her. We will probably start her on some antibiotics as well. She will be admitted to the hospital as an inpatient. Hospital Course: Patient's symptoms improved remarkably over 24 hr. Patient is doing much better. However with the degree of fever and the pain we decided to keep her an extra night. She has significant stool impaction. We gave her a laxative and she had a bowel movement. Clinically patient is doing better and afebrile and is stable for discharge home. Cultures have been negative. Will follow them over the next 48 hr as well. Vital Signs/Physical Exam: Temp Pulse Resp BP Pulse Ox 97.9 F 80 18 161/80 H 94 08/29/20 08:08 08/29/20 08:08 08/29/20 08:08 08/29/20 08:08 08/29/20 08:08 General: Alert, In no apparent distress, Oriented x3 Laboratory Data at Discharge: WBC 6.4 K/uL (4.3-10.9) D 08/28/20 03:35 Hgb 9.7 g/dL (12.0-15.0) L 08/28/20 03:35 Hct 29.0 % (36.0-45.0) L 08/28/20 03:35 Plt Count 189 K/uL (152-406) 08/28/20 03:35 PT 11.8 SECONDS (9.5-12.5) 08/27/20 07:11 INR 1.00 08/27/20 07:11 APTT 30.0 SECONDS (24.3-36.9) 08/27/20 07:11 Sodium 143 mmol/L (136-145) 08/28/20 03:35 Potassium 3.5 mmol/L (3.5-5.1) 08/28/20 03:35 BUN 8 mg/dL (7-18) 08/28/20 03:35 Creatinine 0.61 mg/dL (0.55-1.3) 08/28/20 03:35 Glucose 84 mg/dL (74-106) 08/28/20 03:35 Total Bilirubin 0.2 mg/dL (0.2-1.0) 08/28/20 03:35 AST 24 U/L (15-37) 08/28/20 03:35 ALT 22 U/L (12-78) 08/28/20 03:35 Alkaline Phosphatase 74 U/L (45-117) 08/28/20 03:35 Amylase 27 U/L (25-115) 08/27/20 07:11 Lipase 49 U/L (73-393) L 08/27/20 07:11 Home Medications: Amitriptyline HCl 100 mg PO DAILY 08/27/20 Aspirin Chewable [Aspirin Chewable*] 81 mg PO DAILY 08/27/20 Duloxetine HCl 120 mg PO DAILY 08/27/20 Estradiol 2 mg PO DAILY 08/27/20 Fludrocortisone [Florinef *] 0.1 mg PO DAILY 08/27/20 Hydrocortisone [Cortef*] 10 mg PO 1400 08/27/20 Hydrocortisone [Cortef*] 20 mg PO BREAKFAST 08/27/20 Levothyroxine Sodium 25 mcg PO DAILY 08/27/20 Omeprazole [Prilosec] 40 mg PO DAILY 08/27/20 Oxycodone HCl [Oxycontin] 10 mg PO TID 08/27/20 Promethazine HCl 25 mg PO BIDP PRN 08/27/20 Rosuvastatin Calcium 10 mg PO DAILY 08/27/20 Zaleplon 5 mg PO DAILY 08/27/20 clonazePAM [Klonopin*] 1 mg PO BIDP PRN 08/27/20 Linaclotide [Linzess] 72 mcg PO DAILY #30 capsule 08/29/20 New Medications: Linaclotide [Linzess] 72 mcg PO DAILY #30 capsule Patient Discharge Instructions: OK TO DC IV AND DC HOME. FOLLOW-UP WITH PRIMARY CARE PROVIDER IN 1-2 WEEKS. FOLLOW-UP WITH GI IN 1-2 WEEKS. RETURN TO THE ER IF symptoms worsen. CALL or TEXT DR. REN AT [phone] IF ANY QUESTIONS REGARDING HOSPITAL STAY. PLEASE CALL THE FLOOR AT [phone] IF ANY MEDICATION OR NURSING QUESTIONS. Diet: AHA Activity: Fall precautions Time spent managing pt's care (in minutes): 30
[2020-08-29] MEDS ORDERED: AMITRIPTYLINE 50 MG TAB PO SCH (21:00)
--- OUTSIDE RECORDS SUMMARY | 2020-08-30 02:34 | XMS REPORT | Continuity of Care Document ---
:1955 Author Organization [facility] t Address [address] [place] [address] Care Team Providers Name Role Phone Jeanne [...] Facility Department ID 2020-06-15 2020-06-15 CARLENE Rodriguez [id number] 00:00:00 00:00:00 Jesus Segal [id number] [place] [id number] Professio [phone] nal [address] 2020-03-25 2020-03-25 CARLENE Amos [id number] 00:00:00 00:00:00 Chasidy Segal [id number] [place] [id number] Professio [phone] nal 220 [facility] Results This patient has no known results.
== END 2020-08-29 09:39 | disposition home or self-care (01) ==
LOC: ER 06:03 → ERHOLD 11:03 → INTOOBSV 11:03 → ERHOLD 16:16 → 4TH 16:58
PROVIDERS: ADMIT Hospitalist; ATTEND Hospitalist
DX: R50.2 Drug induced fever (principal); R10.9 Unspecified abdominal pain; R11.2 Nausea with vomiting, unspecified; Z86.73 Personal history of transient ischemic attack (TIA), and cerebral infarction without residual deficits; Z20.828 Contact with and (suspected) exposure to other viral communicable diseases; R53.1 Weakness; I10 Essential (primary) hypertension; K58.9 Irritable bowel syndrome, unspecified; E27.1 Primary adrenocortical insufficiency; F41.8 Other specified anxiety disorders; E78.5 Hyperlipidemia, unspecified; K56.41 Fecal impaction; Z79.52 Long term (current) use of systemic steroids; M54.9 Dorsalgia, unspecified; G89.29 Other chronic pain
CPT/HCPCS: 36415; 71045; 74177; 80048; 80053; 80076; 81003; 81015; 82150; 82550; 82553; 83605; 83690; 84145; 84484; 85025; 85610; 85730; 87040; 87086; 87088; 87804; 93005; 96374; 96375; 99285; G0378; J2405; J7030; Q9967; U0003

== ENCOUNTER 2021-05-05 17:27 | Emergency (ER) | payer MEDICARE, OTHER ==
[2021-05-05] MEDS ORDERED: NA CHLORIDE 0.9% 1,000 ML ONE (18:31)
--- NOTE | 2021-05-05 19:14 | RAD REPORT ---
EXAM DESCRIPTION: RAD - Chest Single View - 05/05/2021 7:05 pm CLINICAL HISTORY: AMS Chest pain. COMPARISON: Chest Single View dated 08/27/2020; Chest Single View dated 06/29/2020; Chest Single View d ated 06/28/2020; Chest Single View dated 06/27/2020 FINDINGS: Portable technique limits examination quality. The lungs are grossly clear. The heart is normal in size. No displaced fractures. IMPRESSION: No acute intrathoracic process suspected.
[2021-05-05 19:36] LABS: Absolute Lymphocytes (CBC) 0.6 K/uL (0.7-4.9); Basophils % 0.2 % (0-1.3); Hematocrit 34.1 % (36.0-45.0); Lymphocytes % 7.8 % (15.3-44.8); MPV 8.7 fL (7.6-11.3); RBC Red Blood Cell Count 3.85 M/uL (3.86-4.86)
[2021-05-05 19:59] LABS: ALT/SGPT 23 U/L (12-78); AST/SGOT 16 U/L (15-37); Albumin 3.2 g/dL (3.4-5.0); Alkaline Phosphatase 79 U/L (45-117); BUN Blood Urea Nitrogen 18 mg/dL (7-18); Bicarbonate 30 mmol/L (21-32); Bilirubin Direct < 0.1 mg/dL (0-0.2); Bilirubin Total 0.2 mg/dL (0.2-1.0); Creatine Phosphokinase 18 U/L (26-192); Glucose Level 122 mg/dL (74-106); Lipase 43 U/L (73-393); Magnesium 1.9 mg/dL (1.8-2.4); Potassium 3.8 mmol/L (3.5-5.1); Protein, Total 7.1 g/dL (6.4-8.2); Sodium Level 140 mmol/L (136-145); Troponin (Emerg Dept Use Only) < 0.02 ng/mL (0.0-0.045)
[2021-05-05 20:04] LABS: Thyroid Stimulating Hormone 0.381 uIU/mL (0.360-3.740)
[2021-05-05] MEDS ORDERED: KETOROLAC 30 MG/ML INJ ONE (20:48)
[2021-05-05 21:04] LABS: Blood Morphology Comment NOT SEEN (NOT SEEN); Platelet Estimate ADEQ
--- NOTE | 2021-05-05 21:24 | RAD REPORT ---
EXAM DESCRIPTION: CT - Head Brain Wo Cont - 05/05/2021 9:13 pm CLINICAL HISTORY: AMS;Confused Headache, drowsiness COMPARISON: Head Brain Wo Cont dated 07/01/2020; Ct Stroke Brain Wo Cont dated 05/08/2019 TECHNIQUE: All CT scans are performed using dose optimization technique as appropriate and may inclu de automated exposure control or mA/KV adjustment according to patient size. FINDINGS: No intracranial hemorrhage, hydrocephalus or extra-axial fluid collection.Mild periventric ular chronic microvascular ischemic changes, unchanged.No areas of brain edema or evidence of midline shift. The paranasal sinuses and mastoids are clear. The calvarium is intact. IMPRESSION: No acute intracranial abnormality.
--- NOTE | 2021-05-05 21:30 | RAD REPORT ---
EXAM DESCRIPTION: CTAbdomen Pelvis W Contrast - 05/05/2021 9:14 pm CLINICAL HISTORY: Abdominal pain. ABD PAIN COMPARISON: Abdomen Pelvis W Contrast dated 08/27/2020; Abdomen Pelvis W Contrast dated 08/02/2019 ; Abdomen Pelvis W Contrast dated 03/16/2019; Abdomen Pelvis W Contrast dated 10/20/2018 TECHNIQUE: Biphasic CT imaging of the abdomen and pelvis was performed with 100 ml non-ionic IV cont rast. All CT scans are performed using dose optimization technique as appropriate and may include automated exposure control or mA/KV adjustment according to patient size. FINDINGS: The lung bases are clear.Cholecystectomy with mild pneumobilia. The liver, spleen, pancreas, adrenal glands and left kidney are within normal limits. There is a larg e 20 mm stone superior right kidney without hydronephrosis. No bowel obstruction, free air, free fluid or abscess. Moderate stool is present throughout the colon . The appendix is not identified as a discrete structure, however, no secondary findings of appendici tis are identified. No evidence of significant lymphadenopathy. No suspicious bony findings. IMPRESSION: No acute intra-abdominal or pelvic finding. Large right renal stone without hydronephrosis.
[2021-05-05 22:01] LABS: Urine Blood Negative (Negative); Urine Glucose Negative (Negative); Urine Protein Negative (Negative); Urine Specific Gravity >=1.030 (1.005-1.030)
[2021-05-05] MEDS ORDERED: CEFTRIAXONE/SWI 1gm 1 GM/10 ML SYR ONE (22:13)
[2021-05-05 22:29] LABS: Barbiturates NEGATIVE (NEGATIVE); Benzodiazepines NEGATIVE (NEGATIVE); Cocaine NEGATIVE (NEGATIVE); METHAMPHETAM NEGATIVE (NEGATIVE); Methadone NEGATIVE (NEGATIVE); Opiates NEGATIVE (NEGATIVE); Phencyclidine NEGATIVE (NEGATIVE); THC Cannibis NEGATIVE (NEGATIVE)
[2021-05-05 22:34] LABS: Urine Bacteria <20 /HPF (<20); Urine RBC <5 /HPF (NONE SEEN)
--- NOTE | 2021-05-05 22:41 | EDPHYS ---
Physician Documentation [facility] Name: Dulce Cerna Age: 65 yrs Sex: Female : 1955 Arrival Date: 05/05/2021 Time: 17:40 Bed 25 Private MD: ED Physician Estella Ochoa HPI: 05/05 18:02 This 65 yrs old Female presents to ER via Unassigned with complaints of AMS, rn weakness, sleeping alot. 18:03 The patient presents with decreased mental status. Onset: The symptoms/episode rn began/occurred 1 week(s) ago. Possible causes: unknown. Current symptoms: In the emergency department the patient's symptoms are unchanged from the initial presentation. The patient has not experienced similar symptoms in the past. The patient has been recently seen by a physician:. Family reports AMS with increased sleepiness and fatigue for 1 week, given abx by pcp for this problem and diagnosed with UTI this week, taking macrobid. Reports sleeping most of day. Complains of abd pain, but has chronic abd issues. Takes pain medication but denies extra doses. No fever. NO vomiting/diarrhea. Seems more alert currently, but family unsure what to think so brought her in. . Historical: - Allergies: 17:45 "pain pills"; bp 17:45 PENICILLINS; bp 17:45 Sulfa (Sulfonamide Antibiotics); bp - PMHx: 17:45 addisons; Chronic pain; Depression; Early Dementia; Hyperlipidemia; Irritable bowel bp syndrome; TIA; - Immunization history:: Adult Immunizations up to date. - Social history:: Smoking status: Patient denies any tobacco usage or history of. - Family history:: not pertinent. - Hospitalizations: : No recent hospitalization is reported. ROS: 18:03 Constitutional: Negative for fever, chills, and weight loss, Eyes: Negative for injury, rn pain, redness, and discharge, ENT: Negative for injury, pain, and discharge, Neck: Negative for injury, pain, and swelling, Cardiovascular: Negative for chest pain, palpitations, and edema, Respiratory: Negative for shortness of breath, cough, wheezing, and pleuritic chest pain, Abdomen/GI: Negative for nausea, vomiting, diarrhea, and constipation, Back: + chronic back pain : Negative for injury, bleeding, discharge, and swelling, MS/Extremity: Negative for injury and deformity, Skin: Negative for injury, rash, and discoloration, Neuro: Negative for headache, numbness, tingling, and seizure. Exam: 18:03 Constitutional: Disheveled patient, awake, slow to respond. Head/Face: Normocephalic, rn atraumatic. Eyes: Periorbital areas with no swelling, redness, or edema. ENT: dry MM Cardiovascular: Regular rate and rhythm. No pulse deficits. Respiratory: No increased work of breathing, no retractions or nasal flaring. Abdomen/GI: soft, + periumbilical tenderness, no rebound Skin: Warm, dry MS/ Extremity: Pulses equal, no cyanosis. Neuro: Awake and alert, GCS 15, oriented to person, place, and situation, not time. Cranial nerves II-XII grossly intact. Motor strength 4/5 in all extremities. Sensory grossly intact. Vital Signs: 17:45 BP 145 / 77; Pulse 78; Resp 16; Temp 98.2; Pulse Ox 95% ; bp 22:07 BP 135 / 68; Pulse 69; Resp 16; Pulse Ox 99% on R/A; dh4 23:13 BP 178 / 88; Pulse 66; Resp 16; Temp 97.4(O); Pulse Ox 98% on R/A; bb MDM: 17:51 Patient medically screened. rn 22:34 Differential Diagnosis: electrolyte abnormality, alcohol intoxication, hypoglycemia, ma2 UTI, volume depletion. Data reviewed: vital signs, nurses notes. Counseling: I had a detailed discussion with the patient and/or guardian regarding: the historical points, exam findings, and any diagnostic results supporting the discharge/admit diagnosis, the presence of at least one elevated blood pressure reading (>120/80) during this emergency department visit, the need for outpatient follow up. Response to treatment: the patient's symptoms have resolved after treatment. ED course: patient has been more sleepy and she is being treated for uti takes antibiotics does not have it here or know its name.. her workup is unremarkable here including ua, vs wnl, blood cultures and urine cultures sent. i offered observation for 24 hrs. patient would like to go home and see pcp, she has mri brain scheduled in 3 days, she has f/u scheduled as well, i explained need to see pcp in 2 days.. she is back to normal now . 05/05 18:01 Order name: Magnesium 05/05 18:01 Order name: UDS 05/05 18:01 Order name: Basic Metabolic Panel 05/05 18:01 Order name: CBC with Diff 05/05 18:01 Order name: CPK 05/05 18:01 Order name: Hepatic Function; Complete Time: 21:21 05/05 18:01 Order name: Lipase; Complete Time: 21:21 05/05 18:01 Order name: Protime (+inr); Complete Time: 21:21 05/05 18:01 Order name: Ptt, Activated; Complete Time: 21:21 05/05 18:01 Order name: Troponin (emerg Dept Use Only); Complete Time: 21:21 05/05 18:01 Order name: Urine Culture 05/05 18:01 Order name: Urine Microscopic Only 05/05 18:01 Order name: Blood Culture Adult (2) 05/05 18:01 Order name: Procalcitonin; Complete Time: 21:21 05/05 18:01 Order name: CT Head Brain wo Cont; Complete Time: 21:41 05/05 18:01 Order name: CT Abd/Pelvis - IV Contrast Only; Complete Time: 21:41 05/05 18:01 Order name: Magnesium; Complete Time: 21:21 [facility] 05/05 18:01 Order name: Urine Drug Screen [facility] 05/05 18:01 Order name: Basic Metabolic Panel; Complete Time: 20:48 [facility] 05/05 18:01 Order name: CBC with Automated Diff; Complete Time: 21:21 [facility] 05/05 18:02 Order name: Creatine Phosphokinase; Complete Time: 21:21 [facility] 05/05 18:03 Order name: TSH; Complete Time: 21:21 05/05 18:03 Order name: T4 Free; Complete Time: 21:21 05/05 18:08 Order name: XRAY Chest (1 view); Complete Time: 19:51 05/05 20:37 Order name: SARS-COV-2 RT PCR; Complete Time: 21:21 [facility] 05/05 21:02 Order name: Manual Differential; Complete Time: 21:21 [facility] 05/05 22:01 Order name: Urine Dipstick-Ancillary; Complete Time: 22:05 EDMS 05/05 18:01 Order name: Cardiac monitoring; Complete Time: 18:15 rn 05/05 18:01 Order name: EKG - Nurse/Tech; Complete Time: 18:15 rn 05/05 18:01 Order name: IV Saline Lock; Complete Time: 18:54 rn 05/05 18:01 Order name: O2 Per Protocol; Complete Time: 18:54 rn 05/05 18:01 Order name: O2 Sat Monitoring; Complete Time: 18:54 rn 05/05 18:01 Order name: Urine Dipstick-Ancillary (obtain specimen); Complete Time: 22:37 rn Administered Medications: 18:00 Drug: NS 0.9% 1000 ml Route: IV; Rate: 1000 ml; Site: left forearm; bp 20:45 Drug: TORadol (ketorolac) 30 mg Route: IVP; Site: right upper arm; rr5 22:27 Follow up: Response: No adverse reaction bb 21:58 Drug: Rocephin (cefTRIAXone) 1 grams {Note: right upper arm.} Route: IV; Rate: bb calculated rate; Site: Other; 22:05 Follow up: IV Intake: 10ml bb Disposition: 05/05/21 22:40 Discharged to Home. Impression: Dizziness and giddiness. - Condition is Stable. - Discharge Instructions: Dizziness. - Medication Reconciliation Form, Thank You Letter, Antibiotic Education, Prescription Opioid Use form. - Follow up: Private Physician; When: Tomorrow; Reason: Continuance of care. Signatures: Dispatcher [employer] [facility] Tawny Worley RN RN bb Nieto, Roman, MD MD rn Attema, Lee, CUSTOMER LEADER-C CUSTOMER LEADER-Cla1 Moustapha Gomez RN RN bp Estella Ochoa MD MD ma2 Evens Barron RN RN rr5 Corrections: (The following items were deleted from the chart) 18:05 18:03 Constitutional: Negative for fever, chills, and weight loss, Eyes: Negative for rn injury, pain, redness, and discharge, ENT: Negative for injury, pain, and discharge, Neck: Negative for injury, pain, and swelling, Cardiovascular: Negative for chest pain, palpitations, and edema, Respiratory: Negative for shortness of breath, cough, wheezing, and pleuritic chest pain, Abdomen/GI: Negative for nausea, vomiting, diarrhea, and constipation, Back: Negative for injury and pain, : Negative for injury, bleeding, discharge, and swelling, MS/Extremity: Negative for injury and deformity, Skin: Negative for injury, rash, and discoloration, Neuro: Negative for headache, numbness, tingling, and seizure, rn 19:28 18:26 CORONAVIRUS+MR.LAB.BRZ ordered. EDMN EDMS 21:02 19:51 CBC Smear Scan ordered. EDMN EDMS 22:40 22:34 ED course: patient has been more sleepy and she is being treated for uti takes ma2 antibiotics does not have it here or know its name.. her workup is unremarkable here including ua, vs wnl, blood cultures and urine cultures sent. i offered observation for 24 hrs . ma2 23:15 22:40 05/05/2021 22:40 Discharged to Home. Impression: Dizziness and giddiness. bb Condition is Stable. Forms are Medication Reconciliation Form, Thank You Letter, Antibiotic Education, Prescription Opioid Use. Follow up: Private Physician; When: Tomorrow; Reason: Continuance of care. ma2
--- NOTE | 2021-05-05 22:41 | ER ---
Nurse's Notes [facility] Name: Dulce Cerna Age: 65 yrs Sex: Female : 1955 Arrival Date: 05/05/2021 Time: 17:40 Bed 25 Private MD: Diagnosis: Dizziness and giddiness Presentation: 05/05 17:45 Chief complaint: EMS states: "FOGGY" MENTATION AND DYSURIA. Coronavirus screen: At this bp time, the client does not indicate any symptoms associated with coronavirus-19. Ebola Screen: No symptoms or risks identified at this time. Initial Sepsis Screen: Does the patient meet any 2 criteria? No. Patient's initial sepsis screen is negative. Does the patient have a suspected source of infection? No. Patient's initial sepsis screen is negative. Risk Assessment: Do you want to hurt yourself or someone else? Patient reports no desire to harm self or others. Onset of symptoms is unknown. 17:45 Method Of Arrival: EMS: [facility] bp 17:45 Acuity: TRACY 3 bp 17:45 Care prior to arrival: Glucose check: 193. bp Triage Assessment: 17:45 General: Appears in no apparent distress. comfortable, obese, Behavior is cooperative, bp appropriate for age, anxious. Pain: Denies pain. EENT: No deficits noted. Neuro: Reports CONFUSION. Cardiovascular: No deficits noted. Respiratory: No deficits noted. GI: No signs and/or symptoms were reported involving the gastrointestinal system. : Reports urinary frequency. Derm: No deficits noted. Musculoskeletal: No deficits noted. Historical: - Allergies: 17:45 "pain pills"; bp 17:45 PENICILLINS; bp 17:45 Sulfa (Sulfonamide Antibiotics); bp - PMHx: 17:45 addisons; Chronic pain; Depression; Early Dementia; Hyperlipidemia; Irritable bowel bp syndrome; TIA; - Immunization history:: Adult Immunizations up to date. - Social history:: Smoking status: Patient denies any tobacco usage or history of. - Family history:: not pertinent. - Hospitalizations: : No recent hospitalization is reported. Screenin:45 Abuse screen: Denies threats or abuse. Denies injuries from another. Nutritional bp screening: No deficits noted. Tuberculosis screening: No symptoms or risk factors identified. Fall Risk None identified. Assessment: 17:45 General: SEE TRIAGE NOTE. bp 19:11 General: Appears in no apparent distress. Behavior is calm, cooperative, appropriate ea for age. Pain: Denies pain. Neuro: Level of Consciousness is awake, alert, obeys commands, Oriented to person, place, time. Respiratory: Airway is patent Respiratory effort is even, unlabored, Respiratory pattern is regular, symmetrical. 21:30 Reassessment: Patient is alert, oriented x 3, equal unlabored respirations, skin bb warm/dry/pink. IV site intact, patent, no erythema or edema noted. Awaiting lab results. 23:12 Reassessment: Patient is alert, oriented x 3, equal unlabored respirations, skin bb warm/dry/pink. pt verbalized understanding of and agrees to plan of care discharge instructions given pt assisted to exit via wheelchair accompanied by family. Vital Signs: 17:45 BP 145 / 77; Pulse 78; Resp 16; Temp 98.2; Pulse Ox 95% ; bp 22:07 BP 135 / 68; Pulse 69; Resp 16; Pulse Ox 99% on R/A; dh4 23:13 BP 178 / 88; Pulse 66; Resp 16; Temp 97.4(O); Pulse Ox 98% on R/A; bb ED Course: 17:40 Patient arrived in ED. aa5 17:45 Arm band placed on. bp 17:45 Patient has correct armband on for positive identification. Bed in low position. Call bp light in reach. Side rails up X2. Adult w/ patient. 17:50 Inserted saline lock: 22 gauge in left forearm, using aseptic technique. bp 17:51 Brad Hernández MD is Attending Physician. rn 18:08 Moustapha Gomez, ROYAL is Primary Nurse. bp 18:50 Triage completed. bp 19:05 XRAY Chest (1 view) In Process Unspecified. EDMS 19:08 COVID swab sent to lab. rr5 19:21 Primary Nurse role handed off by Moustapha Gomez, ROYAL eb 20:00 IV discontinued, intact, bleeding controlled, No redness/swelling at site. Pressure rr5 dressing applied, infiltrated. 20:13 Evens Barron, RN is Primary Nurse. rr5 20:46 Inserted saline lock: 22 gauge in right upper arm, using aseptic technique. rr5 21:13 CT Head Brain wo Cont In Process Unspecified. EDMS 21:14 CT Abd/Pelvis - IV Contrast Only In Process Unspecified. EDMS 22:34 Attending Physician role handed off by Brad Hernández MD ma2 22:34 Estella Ochoa MD is Attending Physician. ma2 23:14 No provider procedures requiring assistance completed. IV discontinued, intact, bb bleeding controlled, No redness/swelling at site. Pressure dressing applied. Administered Medications: 18:00 Drug: NS 0.9% 1000 ml Route: IV; Rate: 1000 ml; Site: left forearm; bp 20:45 Drug: TORadol (ketorolac) 30 mg Route: IVP; Site: right upper arm; rr5 22:27 Follow up: Response: No adverse reaction bb 21:58 Drug: Rocephin (cefTRIAXone) 1 grams {Note: right upper arm.} Route: IV; Rate: bb calculated rate; Site: Other; 22:05 Follow up: IV Intake: 10ml bb Intake: 22:05 IV: 10ml; Total: 10ml. bb Outcome: 22:40 Discharge ordered by . ma2 23:14 Discharged to home via wheelchair, with family. bb 23:14 Condition: stable 23:14 Discharge instructions given to patient, Instructed on discharge instructions, follow up and referral plans. Demonstrated understanding of instructions, follow-up care. 23:15 Patient left the ED. bb Signatures: Dispatcher [employer] EDTawny Bashir, RN RN bb Brad Hernández MD MD rn Calderon, Audri RN RN aa5 Quynh Hale RN Moustapha Pena ea RN ROYAL Estella Ochoa MD MD [facility] Kayce Hernandez Raymond, RN RN rr5 Richard Upton [facility]
[2021-05-05 23:47] VITALS: BP 178/88; TEMP 97.4; O2SAT 98
== END 2021-05-05 23:15 | disposition home or self-care (01) ==
LOC: ER 17:27
DX: R42 Dizziness and giddiness (principal); Z20.822 Contact with and (suspected) exposure to COVID-19; Z88.0 Allergy status to penicillin; Z88.2 Allergy status to sulfonamides; Z88.6 Allergy status to analgesic agent
CPT/HCPCS: 93005; 87040 ×2; 87088; 85025; 87086; 80048; 36415; 83735; 82550; 85610; 80076; 80307 ×8; 85730; 84443; 84484; 84439; 83690; 84145; 70450; 74177; 71045; 99284; U0003; Q9967; J0696; J7030; 81003; 81015

== ENCOUNTER 2021-06-04 21:22 | Inpatient (IN) | payer MEDICARE ==
--- OUTSIDE RECORDS SUMMARY | 2021-06-04 21:24 | XMS REPORT | Continuity of Care Document ---
:1955 Author Organization [facility] t Address [address] [place] [address] Care Team Providers Name Role Phone Doctor Unassigned, Name Attending Clinician Unavailable Angel MANUEL Attending Clinician Problems This patient has no known problems. Allergies, Adverse Reactions, Alerts This patient has no known allergies or adverse reactions. Medications This patient has no known medications. Procedures This patient has no known procedures. Encounters Start End Encounter Admission Attending Care Care Encounter Source Date/Time Date/Time Type Type Clinicians Facility Department ID 2021-05-15 2021-05-15 Orders Doctor PATT [id number] 00:00:00 00:00:00 Only Unassigned, NIEVES [id number] [place] [facility] [id number] 2021-05-03 2021-05-03 Office CARLENE Ortiz [id number] 13:19:28 14:16:38 Visit Ирина Segal [id number] [place] [id number] essmarii [phone] formerly [facility] [address] Results This patient has no known results.
--- NOTE | 2021-06-04 22:02 | RAD REPORT ---
EXAM DESCRIPTION: RAD - Chest Single View - 06/04/2021 9:56 pm CLINICAL HISTORY: ABDOMINAL DISTENTION COMPARISON: Chest Single View dated 05/05/2021; Chest Single View dated 08/27/2020; Chest Single View dated 06/29/2020; Chest Single View dated 06/28/2020; Abdomen Pelvis W Contrast dated 05/05/2021 FINDINGS: No evidence of edema or pneumonia. The heart size is within normal limits.No acute osseous abnormality. No significant pleural effusions or pneumothorax. IMPRESSION: No acute cardiopulmonary disease.
[2021-06-04 22:27] LABS: Urine Blood Negative (Negative); Urine Glucose Negative (Negative); Urine Protein 2+ (Negative); Urine Specific Gravity 1.025 (1.005-1.030)
[2021-06-04] MEDS ORDERED: FAMOTIDINE 20 MG/2 ML VIAL IV ONE (23:04)
[2021-06-04] MEDS ORDERED: HYDROCORTISONE SUC 100 MG INJ ONE (23:04)
[2021-06-04] MEDS ORDERED: ONDANSETRON 4 MG/2 ML VIAL ONE (23:04)
[2021-06-04 23:37] LABS: Absolute Lymphocytes (CBC) 0.9 K/uL (0.7-4.9); Basophils % 0.3 % (0-1.3); Hematocrit 36.6 % (36.0-45.0); Lymphocytes % 5.5 % (15.3-44.8); MPV 8.9 fL (7.6-11.3); RBC Red Blood Cell Count 4.15 M/uL (3.86-4.86)
[2021-06-05 00:08] LABS: ALT/SGPT 25 U/L (12-78); AST/SGOT 17 U/L (15-37); Albumin 3.4 g/dL (3.4-5.0); Alkaline Phosphatase 96 U/L (45-117); BUN Blood Urea Nitrogen 14 mg/dL (7-18); Bicarbonate 29 mmol/L (21-32); Bilirubin Direct 0.1 mg/dL (0-0.2); Bilirubin Total 0.3 mg/dL (0.2-1.0); Glucose Level 119 mg/dL (74-106); Lipase 26 U/L (73-393); Magnesium 2.1 mg/dL (1.8-2.4); NT PRO-BNP 244 pg/mL (<125); Protein, Total 7.7 g/dL (6.4-8.2); Sodium Level 141 mmol/L (136-145); Troponin (Emerg Dept Use Only) < 0.02 ng/mL (0.0-0.045)
[2021-06-05 00:12] LABS: Potassium 2.6 mmol/L (3.5-5.1)
--- NOTE | 2021-06-05 00:17 | ER ---
Nurse's Notes [facility] Name: Dulce Cerna Age: 65 yrs Sex: Female : 1955 Arrival Date: 06/04/2021 Time: 21:31 Bed 20 Private MD: Diagnosis: Vomiting;Diarrhea, unspecified;Abdominal pain, Generalized;Hypokalemia;Elevated white blood cell count;Other specified disorders of adrenal gland-addisons Presentation: 06/04 21:31 Chief complaint: Patient states: Nausea, vomiting, diarrhea, abdomen pain, bloated, bs2 started yesterday. Coronavirus screen: Client denies travel out of the [place] in the last 14 days. At this time, the client does not indicate any symptoms associated with coronavirus-19. Ebola Screen: Patient negative for fever greater than or equal to 101.5 degrees Fahrenheit, and additional compatible Ebola Virus Disease symptoms Patient denies exposure to infectious person. Patient denies travel to an Ebola-affected area in the 21 days before illness onset. Initial Sepsis Screen: Does the patient meet any 2 criteria? No. Patient's initial sepsis screen is negative. Does the patient have a suspected source of infection? No. Patient's initial sepsis screen is negative. Risk Assessment: Do you want to hurt yourself or someone else? Patient reports no desire to harm self or others. Onset of symptoms was June 03, 2021. 21:31 Method Of Arrival: EMS: [facility] bs2 21:31 Acuity: TRACY 3 bs2 Triage Assessment: 21:34 General: Appears uncomfortable, obese, well groomed, well developed, well nourished, bs2 Behavior is calm, cooperative, appropriate for age. Pain: Complains of pain in abdomen Pain currently is 9 out of 10 on a pain scale. Pain began 1 day ago. GI: Reports lower abdominal pain, upper abdominal pain, diarrhea, flatulence, gaseousness, nausea, vomiting. Historical: - Allergies: 21:34 PENICILLINS; bs2 21:34 Sulfa (Sulfonamide Antibiotics); bs2 - Home Meds: 06/05 06:07 amitriptyline 100 mg Oral tab 1 tab once daily [Active]; aspirin 81 mg Oral TbEC 1 tab bs2 once daily [Active]; clonazepam 1 mg Oral tab 1 tab 2 times per day [Active]; estradiol 2 mg Oral tab 1 tab once daily [Active]; duloxetine 60 mg Oral cpDR 2 caps once daily [Active]; levothyroxine 25 mcg tab 1 tab once daily [Active]; fludrocortisone 0.1 mg Oral tab 1 tab once daily for Symptomatic Orthostatic Hypotension [Active]; oxycodone 10 mg Oral tab 1 tab three times a day [Active]; hydrocortisone 10 mg Oral tab [Active]; zaleplon 5 mg Oral cap 1 cap once daily [Active]; Sonata 5 mg Oral cap 2 caps once daily [Active]; - 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 - Social history:: Smoking status: unknown. - Family history:: not pertinent. Screenin:45 Abuse screen: Denies threats or abuse. Denies injuries from another. Nutritional bs2 screening: No deficits noted. Tuberculosis screening: No symptoms or risk factors identified. Fall Risk None identified. Assessment: 21:45 General: Appears uncomfortable, obese, well groomed, well developed, well nourished, bs2 Behavior is calm, cooperative, appropriate for age. Pain: Complains of pain in abdomen Pain currently is 9 out of 10 on a pain scale. Pain began 1 day ago. Neuro: No deficits noted. Cardiovascular: No deficits noted. Respiratory: No deficits noted. Reports. GI: Bowel sounds present X 4 quads. Abd is soft and non tender X 4 quads. Abd is soft X 4 quads Abdomen is tender to palpation X 4 quads. GI: Reports bloating, nausea, vomiting. : No deficits noted. No signs and/or symptoms were reported regarding the genitourinary system. Vital Signs: 21:31 BP 133 / 73 LA Sitting (auto/lg); Pulse 64 MON; Resp 14 S; Temp 98.3(O); Pulse Ox 100% bs2 on R/A; Weight 75.3 kg (R); Height 5 ft. 2 in. (157.48 cm) (R); Pain 9/10; 22:00 BP 143 / 73; Pulse 62; Resp 16; Pulse Ox 98% ; bs2 06/05 01:00 BP 147 / 67; Pulse 71; Resp 15; Pulse Ox 99% ; bs2 03:00 BP 163 / 73; Pulse 65; Resp 16; Pulse Ox 99% ; bs2 05:00 BP 141 / 70 LA Supine (auto/reg); Pulse 67 MON; Resp 15 S; Pulse Ox 100% on R/A; Pain bs2 01/30; 18:00 BP 102 / 67; Pulse 75; Resp 20; Pulse Ox 97% ; kg 06/04 21:31 Body Mass Index 30.36 (75.30 kg, 157.48 cm) bs2 ED Course: 06/04 21:31 Patient arrived in ED. mw2 21:31 Blanca Walls, ROYAL is Primary Nurse. bs2 21:34 Triage completed. bs2 21:34 Fletcher Pruitt MD is Attending Physician. christ 21:36 Arm band placed on right wrist. bs2 21:45 Patient has correct armband on for positive identification. Placed in gown. Bed in low bs2 position. Call light in reach. Side rails up X2. microfilm equipment inspector on. Pulse ox on. NIBP on. Warm blanket given. 21:45 Inserted saline lock: 18 gauge in left EJ, using aseptic technique. Blood collected. bs2 21:56 XRAY Chest (1 view) In Process Unspecified. EDMS 23:38 Troponin (emerg Dept Use Only) Sent. bs2 23:38 PT-INR Sent. bs2 23:38 NT PRO-BNP Sent. bs2 23:38 Magnesium Sent. bs2 23:38 LFT's Sent. bs2 23:38 CBC with Diff Sent. bs2 23:38 Basic Metabolic Panel Sent. bs2 23:38 Lipase Sent. bs2 23:38 Basic Metabolic Panel Sent. bs2 23:38 Liver (Hepatic) Function Sent. bs2 23:38 CBC with Automated Diff Sent. bs2 23:38 NT PRO-BNP Sent. bs2 23:51 Abdomen In Process Unspecified. EDMS 06/05 00:13 Brain Resendiz is Hospitalizing Provider. christ 03:32 Fecal Leukocyte Stain Sent. bs2 03:32 CDIFF Sent. bs2 03:32 Stool Culture Sent. bs2 06:09 Assisted provider with central line placement. Set up central line tray. in right bs2 femoral. Line placed by Fletcher Pruitt MD Dressed with Tegaderm, Patient tolerated well. 06:10 Patient admitted, IV remains in place. bs2 Administered Medications: 00:12 Discontinued: NS 0.9% 1000 ml IV at 125 ml/hr continuous christ 06/04 23:37 Drug: Pepcid (famotidine) 20 mg Route: IVP; Site: left jugular; bs2 06/05 03:33 Follow up: Response: No adverse reaction bs2 06/04 23:37 Drug: Solu-CORTEF (hyrdoCORTISONE) 100 mg Route: IVP; Site: left jugular; bs2 06/05 03:32 Follow up: Response: No adverse reaction bs2 06/04 23:37 Drug: NS 0.9% 1000 ml Route: IV; Rate: 125 ml/hr; Site: left jugular; bs2 23:38 Drug: Zofran (Ondansetron) 4 mg Route: IVP; Site: left jugular; bs2 06/05 03:33 Follow up: Response: No adverse reaction bs2 01:49 Drug: Flagyl (metroNIDAZOLE) 500 mg Volume: 100 ml; Route: IVPB; Rate: 200 ml/hr; bs2 Infused Over: 30 mins; Site: left jugular; 02:26 Follow up: IV Status: Completed infusion; IV Intake: 50ml bs2 01:49 Drug: morphine 4 mg Route: IVP; Site: Other; bs2 02:26 Follow up: Response: No adverse reaction bs2 01:50 Drug: Potassium Chloride 20 mEq Route: IV; Rate: per protocol; Site: Other; bs2 03:58 Follow up: IV Status: Completed infusion; IV Intake: 100ml bs2 01:50 Drug: Zofran (Ondansetron) 4 mg Route: IVP; Site: Other; bs2 02:25 Follow up: Response: No adverse reaction bs2 02:26 Drug: Cipro (ciprofloxacin) 400 mg Volume: 200 ml; Route: IVPB; Infused Over: 60 mins; bs2 Site: left jugular; 03:32 Follow up: IV Status: Completed infusion; IV Intake: 100ml bs2 02:26 Drug: NS 0.9% with KCl 20 mEq/L 1000 ml Route: IV; Rate: 125 ml/hr; Site: Other; bs2 10:30 Follow up: IV Status: Completed infusion; IV Intake: 1000ml kg 03:59 Drug: Potassium Chloride 20 mEq Route: IV; Rate: per protocol; Site: Other; bs2 06:10 Follow up: IV Status: Completed infusion bs2 Intake: 02:26 IV: 50ml; Total: 50ml. bs2 03:32 IV: 100ml; Total: 150ml. bs2 03:58 IV: 100ml; Total: 250ml. bs2 10:30 IV: 1000ml; Total: 1250ml. kg Outcome: 00:16 Decision to Hospitalize by Provider. christ 20:39 Admitted to Med/surg accompanied by nurse, via wheelchair, with oxygen, Report called haider to Barbara PAIGE 20:39 Condition: good 20:39 Instructed on the need for admit, Demonstrated understanding of instructions. 20:40 Patient left the ED. haider Signatures: Dispatcher [employer] EDPR Fletcher Pruitt MD MD cha Westbrook, MyKena mw2 Brain Eisenberg RN ROYAL [id number] Fany Peck, ROYAL PAIGE Blanca Walls, RN RN bs2
--- NOTE | 2021-06-05 00:17 | EDPHYS ---
Physician Documentation [facility] Name: Dulce Cerna Age: 65 yrs Sex: Female : 1955 Arrival Date: 06/04/2021 Time: 21:31 Bed 20 Private MD: Fletcher Bright HPI: 06/04 23:30 This 65 yrs old Female presents to ER via EMS with complaints of abdominal christ pain , vomiting and diarrhea. 23:30 The patient presents with abdominal pain abdominal distention in the upper abdomen, in christ the lower abdomen. Onset: The symptoms/episode began/occurred 1 day(s) ago. The patient presents to the emergency department with nausea, vomiting, diarrhea, abdominal pain, of the right upper quadrant, left upper quadrant, right lower quadrant and left lower quadrant. Onset: The symptoms/episode began/occurred 2 day(s) ago. Possible causes: unknown. The symptoms are aggravated by nothing. The symptoms are alleviated by nothing. Associated signs and symptoms: The patient has no apparent associated signs or symptoms. Associated signs and symptoms: none. Historical: - Allergies: 21:34 PENICILLINS; bs2 21:34 Sulfa (Sulfonamide Antibiotics); bs2 - Home Meds: 06/05 06:07 amitriptyline 100 mg Oral tab 1 tab once daily [Active]; aspirin 81 mg Oral TbEC 1 tab bs2 once daily [Active]; clonazepam 1 mg Oral tab 1 tab 2 times per day [Active]; estradiol 2 mg Oral tab 1 tab once daily [Active]; duloxetine 60 mg Oral cpDR 2 caps once daily [Active]; levothyroxine 25 mcg tab 1 tab once daily [Active]; fludrocortisone 0.1 mg Oral tab 1 tab once daily for Symptomatic Orthostatic Hypotension [Active]; oxycodone 10 mg Oral tab 1 tab three times a day [Active]; hydrocortisone 10 mg Oral tab [Active]; zaleplon 5 mg Oral cap 1 cap once daily [Active]; Sonata 5 mg Oral cap 2 caps once daily [Active]; - 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 - Social history:: Smoking status: unknown. - Family history:: not pertinent. ROS: 23:30 Constitutional: Negative for fever, chills, and weight loss, Eyes: Negative for injury, christ pain, redness, and discharge, ENT: Negative for injury, pain, and discharge, Neck: Negative for injury, pain, and swelling, Cardiovascular: Negative for chest pain, palpitations, and edema, Respiratory: Negative for shortness of breath, cough, wheezing, and pleuritic chest pain, Back: Negative for injury and pain, : Negative for injury, bleeding, discharge, and swelling, MS/Extremity: Negative for injury and deformity, Skin: Negative for injury, rash, and discoloration, Neuro: Negative for headache, weakness, numbness, tingling, and seizure, Psych: Negative for depression, anxiety, suicide ideation, homicidal ideation, and hallucinations, Allergy/Immunology: Negative for hives, rash, and allergies, Endocrine: Negative for neck swelling, polydipsia, polyuria, polyphagia, and marked weight changes. 23:30 Abdomen/GI: Positive for abdominal pain, nausea and vomiting, nausea, vomiting, and diarrhea, nausea, vomiting, diarrhea, of the right upper quadrant, left upper quadrant, right lower quadrant and left lower quadrant. Exam: 23:30 Constitutional: This is a well developed, well nourished patient who is awake, alert, christ and in no acute distress. Head/Face: Normocephalic, atraumatic. Eyes: Pupils equal round and reactive to light, extra-ocular motions intact. Lids and lashes normal. Conjunctiva and sclera are non-icteric and not injected. Cornea within normal limits. Periorbital areas with no swelling, redness, or edema. ENT: Nares patent. No nasal discharge, no septal abnormalities noted. Tympanic membranes are normal and external auditory canals are clear. Oropharynx with no redness, swelling, or masses, exudates, or evidence of obstruction, uvula midline. Mucous membranes moist. Neck: Trachea midline, no thyromegaly or masses palpated, and no cervical lymphadenopathy. Supple, full range of motion without nuchal rigidity, or vertebral point tenderness. No Meningismus. Chest/axilla: Normal chest wall appearance and motion. Nontender with no deformity. No lesions are appreciated. Cardiovascular: Regular rate and rhythm with a normal S1 and S2. No gallops, murmurs, or rubs. Normal PMI, no JVD. No pulse deficits. Respiratory: Lungs have equal breath sounds bilaterally, clear to auscultation and percussion. No rales, rhonchi or wheezes noted. No increased work of breathing, no retractions or nasal flaring. Back: No spinal tenderness. No costovertebral tenderness. Full range of motion. Skin: Warm, dry with normal turgor. Normal color with no rashes, no lesions, and no evidence of cellulitis. MS/ Extremity: Pulses equal, no cyanosis. Neurovascular intact. Full, normal range of motion. Neuro: Awake and alert, GCS 15, oriented to person, place, time, and situation. Cranial nerves II-XII grossly intact. Motor strength 5/5 in all extremities. Sensory grossly intact. Cerebellar exam normal. Normal gait. Psych: Awake, alert, with orientation to person, place and time. Behavior, mood, and affect are within normal limits. 23:30 ECG was reviewed by the Attending Physician. 23:30 Abdomen/GI: Inspection: distension, Bowel sounds: active, all quadrants, Palpation: mild abdominal tenderness, in all quadrants, Liver: no appreciated palpable abnormalities, Hernia: not appreciated. Vital Signs: 21:31 BP 133 / 73 LA Sitting (auto/lg); Pulse 64 MON; Resp 14 S; Temp 98.3(O); Pulse Ox 100% bs2 on R/A; Weight 75.3 kg (R); Height 5 ft. 2 in. (157.48 cm) (R); Pain 9/10; 22:00 BP 143 / 73; Pulse 62; Resp 16; Pulse Ox 98% ; bs2 06/05 01:00 BP 147 / 67; Pulse 71; Resp 15; Pulse Ox 99% ; bs2 03:00 BP 163 / 73; Pulse 65; Resp 16; Pulse Ox 99% ; bs2 05:00 BP 141 / 70 LA Supine (auto/reg); Pulse 67 MON; Resp 15 S; Pulse Ox 100% on R/A; Pain bs2 3/10; 18:00 BP 102 / 67; Pulse 75; Resp 20; Pulse Ox 97% ; kg 06/04 21:31 Body Mass Index 30.36 (75.30 kg, 157.48 cm) bs2 Procedures: 00:10 Peripheral line: by aseptic technique a peripheral line was placed in the left external christ jugular vein. 01:39 Central Line: the site was prepped with Betadine, in sterile fashion, a triple lumen christ catheter was inserted, in the right femoral vein, in 1 attempts. placement was verified, by blood return, the site was dressed with using sterile technique, the patient tolerated the procedure, well. MDM: 06/04 21:34 Patient medically screened. [facility] 23:43 Differential diagnosis: Nonspecific abd pain, gastritis, cholecystitis, pancreatitis, christ viral gastroenteritis, gastroenteritis, bowel obstruction, coronary artery disease, diverticulitis, gastritis, gastroesophageal reflux disease, GI Bleed, Hepatitis, Irritable bowel syndrome, myocardia ischemia or infarction, non-specific abd pain, pancreatitis, Peptic Ulcer Disease, Peritonitis, urinary tract infection. Data reviewed: vital signs, nurses notes, lab test result(s), EKG, radiologic studies, CT scan, plain films. Data interpreted: nurse monitoring: rate is 64 beats/min, rhythm is regular, Pulse oximetry: on room air is 100 %. Test interpretation: by ED physician or midlevel provider: ECG, plain radiologic studies. Counseling: I had a detailed discussion with the patient and/or guardian regarding: the historical points, exam findings, and any diagnostic results supporting the discharge/admit diagnosis, lab results, radiology results. 06/04 21:36 Order name: Basic Metabolic Panel [facility] 06/04 21:36 Order name: CBC with Diff [facility] 06/04 21:36 Order name: LFT's [facility] 06/04 21:36 Order name: Magnesium [facility] 06/04 21:36 Order name: NT PRO-BNP [facility] 06/04 21:36 Order name: PT-INR; Complete Time: 00:10 [facility] 06/04 21:36 Order name: Troponin (emerg Dept Use Only); Complete Time: 00:13 [facility] 06/04 21:36 Order name: Lipase; Complete Time: 00:13 [facility] 06/04 21:36 Order name: Urine Culture [facility] 06/04 21:36 Order name: Type And Screen; Complete Time: 02:53 [facility] 06/04 21:37 Order name: Basic Metabolic Panel; Complete Time: 00:13 [facility] 06/04 21:37 Order name: CBC with Automated Diff; Complete Time: 00:10 [facility] 06/04 21:37 Order name: Liver (Hepatic) Function; Complete Time: 00:13 [facility] 06/04 21:37 Order name: Magnesium; Complete Time: 00:13 [facility] 06/04 21:37 Order name: NT PRO-BNP; Complete Time: 00:13 [facility] 06/04 22:02 Order name: Glucose, Ancillary Testing; Complete Time: 23:30 [facility] 06/04 22:27 Order name: Urine Dipstick-Ancillary; Complete Time: 23:30 [facility] 06/04 23:06 Order name: SARS-COV-2 RT PCR; Complete Time: 23:30 [facility] 06/04 23:29 Order name: Fecal Leukocyte Stain [facility] 06/04 23:29 Order name: Stool Culture [facility] 06/04 23:29 Order name: CDIFF [facility] 06/05 00:12 Order name: Phosphorus; Complete Time: 02:53 [facility] 06/05 06:49 Order name: Lactate [facility] 06/05 06:49 Order name: T4 Free [facility] 06/05 06:49 Order name: Thyroid Stimulating Hormone [facility] 06/05 06:49 Order name: Comprehensive Metabolic Panel [facility] 06/05 06:55 Order name: Procalcitonin [facility] 06/05 09:41 Order name: CBC with Automated Diff [facility] 06/05 10:13 Order name: Manual Differential [facility] 06/04 21:36 Order name: XRAY Chest (1 view); Complete Time: 23:30 [facility] 06/04 21:36 Order name: EKG; Complete Time: 21:37 [facility] 06/04 21:36 Order name: Cardiac monitoring; Complete Time: 22:26 [facility] 06/04 21:36 Order name: EKG - Nurse/Tech; Complete Time: 22:26 [facility] 06/04 21:36 Order name: IV Saline Lock; Complete Time: 23:38 [facility] 06/04 21:36 Order name: Labs collected and sent; Complete Time: 23:38 [facility] 06/04 21:36 Order name: O2 Per Protocol; Complete Time: 22:26 [facility] 06/04 21:36 Order name: O2 Sat Monitoring; Complete Time: 22:26 [facility] 06/04 21:36 Order name: Urine Dipstick-Ancillary (obtain specimen); Complete Time: 23:38 [facility] 06/04 23:30 Order name: Abdomen [facility] 06/05 01:39 Order name: Central Line Kit; Complete Time: 01:41 [facility] 06/05 13:04 Order name: Urinalysis EDMS EC:30 Rate is 63 beats/min. Rhythm is regular. QRS [place] is Normal. AR interval is normal. QRS christ interval is normal. QT interval is normal. No Q waves. T waves are Normal. T waves are Inverted. ST Segment is depressed in leads I, II, III, aVL, aVF, V4, V5, V6. Clinical impression: NSR w/ Non-specific ST/T Changes. Interpreted by me. Reviewed by me. Administered Medications: 06/05 00:12 Discontinued: NS 0.9% 1000 ml IV at 125 ml/hr continuous [facility] 06/04 23:37 Drug: Pepcid (famotidine) 20 mg Route: IVP; Site: left jugular; 2 06/05 03:33 Follow up: Response: No adverse reaction [facility] 06/04 23:37 Drug: Solu-CORTEF (hyrdoCORTISONE) 100 mg Route: IVP; Site: left jugular; 2 06/05 03:32 Follow up: Response: No adverse reaction [facility] 06/04 23:37 Drug: NS 0.9% 1000 ml Route: IV; Rate: 125 ml/hr; Site: left jugular; bs2 23:38 Drug: Zofran (Ondansetron) 4 mg Route: IVP; Site: left jugular; 2 06/05 03:33 Follow up: Response: No adverse reaction bs2 01:49 Drug: Flagyl (metroNIDAZOLE) 500 mg Volume: 100 ml; Route: IVPB; Rate: 200 ml/hr; bs2 Infused Over: 30 mins; Site: left jugular; 02:26 Follow up: IV Status: Completed infusion; IV Intake: 50ml bs2 01:49 Drug: morphine 4 mg Route: IVP; Site: Other; bs2 02:26 Follow up: Response: No adverse reaction bs2 01:50 Drug: Potassium Chloride 20 mEq Route: IV; Rate: per protocol; Site: Other; bs2 03:58 Follow up: IV Status: Completed infusion; IV Intake: 100ml bs2 01:50 Drug: Zofran (Ondansetron) 4 mg Route: IVP; Site: Other; bs2 02:25 Follow up: Response: No adverse reaction bs2 02:26 Drug: Cipro (ciprofloxacin) 400 mg Volume: 200 ml; Route: IVPB; Infused Over: 60 mins; bs2 Site: left jugular; 03:32 Follow up: IV Status: Completed infusion; IV Intake: 100ml bs2 02:26 Drug: NS 0.9% with KCl 20 mEq/L 1000 ml Route: IV; Rate: 125 ml/hr; Site: Other; bs2 10:30 Follow up: IV Status: Completed infusion; IV Intake: 1000ml kg 03:59 Drug: Potassium Chloride 20 mEq Route: IV; Rate: per protocol; Site: Other; bs2 06:10 Follow up: IV Status: Completed infusion bs2 Disposition Summary: 06/05/21 00:16 Hospitalization Ordered Hospitalization Status: Inpatient Admission christ Provider: Brain Resendiz cha Condition: Fair christ Problem: new christ Symptoms: have improved christ Bed/Room Type: Standard christ Location: Telemetry/MedSurg (Inpatient)(06/05/21 17:41) dw Room Assignment: [facility](06/05/21 17:41) dw Diagnosis - Vomiting christ - Diarrhea, unspecified christ - Abdominal pain, Generalized christ - Hypokalemia christ - Elevated white blood cell count christ - Other specified disorders of adrenal gland - addisons christ Forms: - Medication Reconciliation Form christ - SBAR form christ Signatures: Dispatcher [employer] Simona Sepulveda RN RN dw Anderson, Corey, MD MD cha Westbrook, MyKena mw2 David Chen PA PA ej Smith, Bridget RN RN bs2 Fany Peck RN kg Corrections: (The following items were deleted from the chart) 06/04 22:05 21:38 CORONAVIRUS+MR.LAB.BRZ ordered. EDMS EDMS 23:30 21:37 Abdomen Pelvis W Con+CT.RAD.BRZ ordered. EDIN EDMS 06/05 01:08 00:16 Telemetry/MedSurg (Inpatient) christ mw2 01:08 00:16 christ mw2 17:41 01:08 [facility] ER HOLD mw2 dw 17:41 01:08 ERHOLD- mw2 dw
[2021-06-05] MEDS: NA CHLORIDE 0.9% 1,000 ML IV SCH ×2 (01:00→14:00)
[2021-06-05] MEDS ORDERED: NS KCL 20MEQ 1,000 ML IV ONE (01:50)
[2021-06-05] MEDS ORDERED: CIPROFLOXACIN 400mg IV 400 MG/200 ML BAG IV ONE ×2 (01:51→15:10)
[2021-06-05] MEDS ORDERED: KCL 20 MEQ/100 mL IVPB 40 MEQ/200 ML BAG IV ONE (01:51)
[2021-06-05] MEDS ORDERED: METRONIDAZOLE 500mg IVPB 500 MG/100 ML BAG IV ONE ×3 (01:51→18:35)
[2021-06-05] MEDS ORDERED: MORPHINE 4 MG/ML SYR ONE (02:01)
[2021-06-05] MEDS ORDERED: ONDANSETRON 4 MG/2 ML VIAL ONE (02:01)
--- NOTE | 2021-06-05 03:41 | P.HP ---
Certification for Inpatient Patient admitted to: Inpatient With expected LOS: <2 Midnights Patient will require the following post-hospital care: None Practitioner: I am a practitioner with admitting privileges, knowledge of patient current condition, hospital course, and medical plan of care. Services: Services provided to patient in accordance with Admission requirements found in Title 42 Section 412.3 of the Code of Federal Regulations Patient History Date of Service: 06/05/21 Reason for admission: hypokalemia, diarrhea History of Present Illness: Ms. Cerna is a 65 yo F with Enochs's, IBS, HLD, hypothyroidism here today with 2 days of nausea, vomiting, diarrhea, and intermittent abdominal pain. She reports anorexia. Denies fever, melena. Symptoms worse with eating or drinking. WBC 16.8. K 2.6. CT scan shows nonspecific air fluid levels present within small and large bowel which can be seen in clinical setting of diarrhea, small bowel loops within left abdomen are mildly dilated without discrete transition, underlying ileus or early partial SBO may be considered, rectosigmoid colon appears minimally thicken, may be related to degree of distention. Allergies Penicillins Allergy (Verified 03/16/19 23:40) Shortness of breath Sulfa (Sulfonamide Antibiotics) [Sulfa(Sulfonamide Antibiotics)] Allergy (Verified 03/16/19 23:40) Shortness of breath NSAIDS Adverse Reaction (Uncoded 03/16/19 23:40) Kidney Problems Home Medications: Amitriptyline HCl 100 mg PO DAILY 08/27/20 Aspirin Chewable [Aspirin Chewable*] 81 mg PO DAILY 08/27/20 Duloxetine HCl 120 mg PO DAILY 08/27/20 Estradiol 2 mg PO DAILY 08/27/20 Fludrocortisone [Florinef *] 0.1 mg PO DAILY 08/27/20 Hydrocortisone [Cortef*] 10 mg PO 1400 08/27/20 Hydrocortisone [Cortef*] 20 mg PO BREAKFAST 08/27/20 Levothyroxine Sodium 25 mcg PO DAILY 08/27/20 Omeprazole [Prilosec] 40 mg PO DAILY 08/27/20 Oxycodone HCl [Oxycontin] 10 mg PO TID 08/27/20 Promethazine HCl 25 mg PO BIDP PRN 08/27/20 Rosuvastatin Calcium 10 mg PO DAILY 08/27/20 Zaleplon 5 mg PO DAILY 08/27/20 clonazePAM [Klonopin*] 1 mg PO BIDP PRN 08/27/20 Linaclotide [Linzess] 72 mcg PO DAILY #30 capsule 08/29/20 - Past Medical/Surgical History Diabetic: No -: Enochs's -: Irritable Bowel Syndrome -: TIA -: Chronic back pain -: hyperlipidemia -: CVA -: hypothyroidism -: Cholecystectomy -: Appendectomy -: -: Hysterectomy -: Exploratory laparotomy - Family History Mother -: Stroke, Other (see notes) Notes: Asthma. Rheumatoid Arthritis - Social History Smoking Status: Never smoker Alcohol use: No CD- Drugs: No Caffeine use: No Place of Residence: Home Review of Systems 10-point ROS is otherwise unremarkable Gastrointestinal: Nausea, Vomiting, Abdominal Pain, Diarrhea Physical Examination - Physical Exam General: Alert, In no apparent distress HEENT: Atraumatic, PERRLA, Mucous membr. moist/pink, EOMI, Sclerae nonicteric Neck: Supple, 2+ carotid pulse no bruit, No LAD, Without JVD or thyroid abnorm ality Respiratory: Clear to auscultation bilaterally, Normal air movement Cardiovascular: Regular rate/rhythm, Normal S1 S2 Gastrointestinal: Normal bowel sounds, No ascites, No masses, No rebound, No guarding, Tenderness Musculoskeletal: No tenderness Integumentary: No rashes Neurological: Normal gait, Normal speech, Normal strength at 5/5 x4 extr, Normal tone, Normal affect Lymphatics: No axilla or inguinal lymphadenopathy - Studies Laboratory Data (last 24 hrs) 06/04/21 23:20: Phosphorus 3.6 06/04/21 23:20: PT 11.5, INR 1.00 06/04/21 23:20: WBC 16.80 H, Hgb 12.0, Hct 36.6, Plt Count 285 06/04/21 23:20: Sodium 141, Potassium 2.6 L*, BUN 14, Creatinine 0.87, Glucose 119 H, Magnesium 2.1, Total Bilirubin 0.3, AST 17, ALT 25, Alkaline Phosphatase 96, Lipase 26 L Assessment and Plan - Plan Assessment Diarrhea, possible underlying ileus or early/partial SBO, possible proctocolitis, IBS Hypokalemia Enochs's HLD Hypothyroid Plan Diarrhea, possible underlying ileus or early/partial SBO, possible proctocol itis, IBS - NPO, continue IVF, continue IV antibiotics, stool cultures pending, blood cultures pending, surgery consulted Hypokalemia - received potassium in the ED, repeat K+, potassium replacemnt pr otocol Bruce's - continue stress doses of solucortef HLD - stable, continue home medications Hypothyroid - stable, continue home medications Discharge Plan: Home Plan to discharge in: 48 Hours - Advance Directives Does patient have a Living Will: No Does patient have a Durable POA for Healthcare: No - Code Status/Comfort Care Code Status Assessed: Yes (full code) Critical Care: No Time Spent Managing Pts Care (In Minutes): 70
[2021-06-05] MEDS ORDERED: ACETAMINOPHEN 500 MG TAB PO PRN (03:42)
[2021-06-05 06:19] LABS: Albumin 2.7 g/dL (3.4-5.0); Bilirubin Total 0.2 mg/dL (0.2-1.0); Potassium 3.7 mmol/L (3.5-5.1); Protein, Total 6.1 g/dL (6.4-8.2)
[2021-06-05 06:24] LABS: Thyroid Stimulating Hormone 0.33 uIU/mL (0.360-3.740)
[2021-06-05] MEDS: HYDROCORTISONE SUC 100 MG INJ IV SCH ×2 (08:00→16:00)
[2021-06-05] MEDS: ENOXAPARIN 40 MG/0.4 ML SQ SCH (08:15)
[2021-06-05] MEDS ORDERED: ENOXAPARIN 40 MG/0.4 ML SQ ONE (08:19)
[2021-06-05] MEDS ORDERED: HYDROCORTISONE SUC 100 MG INJ ONE ×2 (08:19→18:35)
[2021-06-05 09:33] LABS: Absolute Lymphocytes (CBC) 0.5 K/uL (0.7-4.9); Basophils % 0.3 % (0-1.3); Hematocrit 28.8 % (36.0-45.0); Lymphocytes % 5.3 % (15.3-44.8); RBC Red Blood Cell Count 3.25 M/uL (3.86-4.86)
[2021-06-05] MEDS ORDERED: MORPHINE 2 MG/ML SYR ONE ×2 (09:33→17:03)
[2021-06-05] MEDS: METRONIDAZOLE 500mg IVPB 500 MG/100 ML BAG IV SCH ×2 (10:00→18:00)
[2021-06-05 10:13] LABS: Blood Morphology Comment NOT SEEN (NOT SEEN); Platelet Estimate ADEQ
[2021-06-05] MEDS: MORPHINE 2 MG/ML SYR IV PRN ×2 (11:23→17:10)
[2021-06-05] MEDS ORDERED: NA CHLORIDE 0.9% 1,000 ML ONE (12:24)
--- NOTE | 2021-06-05 12:40 | EKG ---
Test Date: 2021-06-04 Test Time: 21:47:04 Weeder Thinner: CASEY MEASUREMENT RESULTS: Intervals: Rate: 63 OK: 152 QRSD: 88 QT: 406 QTc: 415 Dalton: P: 61 OK: 152 QRS: 5 T: 187 INTERPRETIVE STATEMENTS: Normal sinus rhythm Left ventricular hypertrophy with repolarization abnormality Abnormal ECG Compared to ECG 05/05/2021 18:24:50 Early repolarization now present T-wave abnormality no longer present Electronically Signed On 06-05-21 12:37:31 CDT by Michael Chávez
[2021-06-05 13:03] LABS: Urine Appearance CLEAR (Clear); Urine Bilirubin NEGATIVE (Negative); Urine Blood NEGATIVE (Negative); Urine Color YELLOW (Yellow); Urine Glucose NEGATIVE (Negative); Urine Protein NEGATIVE (Negative); Urine Specific Gravity <=1.005 (1.005-1.030); Urine Urobilinogen 0.2 mg/dL (0.2-1.0)
[2021-06-05 13:04] LABS: Urine Microscopic Reflex NO UMIC
[2021-06-05] MEDS: CIPROFLOXACIN 400mg IV 400 MG/200 ML BAG IV SCH (14:00)
--- NOTE | 2021-06-05 16:37 | CON ---
Date of Consultation: 06/05/2021 Reason: Diarrhea, vomiting, and distended abdomen. History Of Present Illness: The patient is a 65-year-old female with multiple medical problems, who presented to the emergency room with 2-day history of nausea, vomiting, and diarrhea and intermittent abdominal pain. Today, she feels better as the diarrhea has stopped. She had have 6-8 diarrhea the last couple of days. She does have chills, but no fever. No chest pain. No sore throat, runny nos e, cough, headaches, or dizziness. No blood in her stool that she could see. No dysuria or hematuri a. Review of Systems: Otherwise unremarkable. Past Medical History: Significant for [place] disease, irritable bowel syndrome, TIA, back pain, hyp erlipidemia, stroke, and hypothyroidism. Past Surgical History: Significant for cholecystectomy, appendectomy, , hysterectomy, and e xploratory laparotomy. Allergies: INCLUDE PENICILLIN, SULFA, AND NSAIDS. Social History: The patient does not smoke. Denies drinking. Family History: Noncontributory. Physical Examination: Vital Signs: Stable. She is afebrile. She is awake, alert, and oriented x3. Head and Neck: No masses. Chest: Clear. Heart: S1 and S2. Abdomen: Soft, slightly distended. No tenderness at all. No rebound. No rigidity. No guarding. Extremities: Adequately perfused. Nontender. Neuro: Nonfocal. Laboratory Data: Reviewed. Her potassium on admission was 2.6. It has been corrected, currently is 3.7. Remainder of the electrolytes are without significant change. Her white count on admission wa s 16.8, currently is 10.2 with a left shift which is improving. Stool cultures are pending. CT of t he abdomen and pelvis reviewed and a picture more consistent with gastroenteritis and ileus is presen t. No transition point for an obstruction is seen. Assessment: A 65-year-old female with likely gastroenteritis, dehydration, hypokalemia. Recommendation: Replacement of electrolytes, empiric antibiotics. We will start the patient on judy r liquids. If it is tolerated can be advanced. When she is able to hold fluids down and taking p.o. well, she can be discharged on oral antibiotics to follow up with her GI doctor. There is no need f or any surgical intervention at this time. /MODL Voice ID: [id number] Report ID: [id number]
--- NOTE | 2021-06-05 18:51 | P.PN ---
Subjective Date of Service: 06/05/21 Chief Complaint: hypokalemia, diarrhea Patient states she feels much better today. She reports multiple bowel movements prior to coming to the emergency department and that she is usually constipated from her IBS. No fever. Leukocytosis resolved. Physical Examination - Vital Signs Temperature: 97.9 F Blood Pressure: 155/77 Pulse: 69 Respirations: 16 Pulse Ox (%): 98 - Physical Exam General: Alert, In no apparent distress, Oriented x3 HEENT: Mucous membr. moist/pink Neck: Supple, JVD not distended Respiratory: Clear to auscultation bilaterally, Normal air movement Cardiovascular: No edema, Regular rate/rhythm, Normal S1 S2 Gastrointestinal: Normal bowel sounds, Soft and benign, Non-distended, Other (Abdomen is full) Musculoskeletal: No swelling Integumentary: No rashes, No erythema Neurological: Normal strength at 5/5 x4 extr - Studies Laboratory Data (last 24 hrs) 06/04/21 23:20: Phosphorus 3.6 06/04/21 23:20: PT 11.5, INR 1.00 06/04/21 23:20: WBC 16.80 H, Hgb 12.0, Hct 36.6, Plt Count 285 06/04/21 23:20: Sodium 141, Potassium 2.6 L*, BUN 14, Creatinine 0.87, Glucose 119 H, Magnesium 2.1, Total Bilirubin 0.3, AST 17, ALT 25, Alkaline Phosphatase 96, Lipase 26 L Microbiology Data (last 24 hrs): 06/05/21 02:52 Stool Fecal Leukocyte Stain - Final Assessment And Plan - Current Problems (Diagnosis) (1) Gastroenteritis Current Visit: Yes Status: Acute (2) GERD (gastroesophageal reflux disease) Current Visit: No Status: Chronic Qualifiers: Esophagitis presence: without esophagitis Qualified Code(s): K21.9 - Gastro-esophageal reflux disease without esophagitis (3) Irritable bowel disease Onset Date: 04/08/18 Current Visit: No Status: Chronic Qualifiers: Irritable bowel syndrome type: unspecified Qualified Code(s): K58.9 - Irritable bowel syndrome without diarrhea - Plan Continue supportive measures. Fecal leukocyte stain is negative, making bacterial infection or inflammation less likely. Diarrhea could be related to IBS or viral gastroenteritis. General surgery input appreciated. Start liquid diet Continue antibiotics for now. Diarrhea frequency reduce since admission. Continue IV hydration. Monitor and replete electrolytes. Continue home dose steroid for [place]'s disease. Possible discharge in a.m.
[2021-06-05 18:52] VITALS: BMI 13.7
[2021-06-05] MEDS: ARIPIPRAZOLE 2 MG PO SCH (21:00)
[2021-06-05] MEDS: HYDROCORTISONE 10 MG TAB PO SCH (21:38)
[2021-06-05] MEDS: MELATONIN 5 MG TABLET PO SCH (21:39)
[2021-06-05] MEDS: OXYCODONE *CR* 10 MG TAB PO SCH (21:39)
[2021-06-05] MEDS: ONDANSETRON 4 MG/2 ML VIAL IV PRN (21:39)
[2021-06-05] MEDS: AMITRIPTYLINE 25 MG TAB PO SCH (21:40)
--- NOTE | 2021-06-05 22:13 | RAD REPORT ---
EXAM DESCRIPTION: CT - Abdomen Pelvis Wo Contrast - 06/05/2021 6:53 am CLINICAL HISTORY: ABD PAIN TECHNIQUE: Contiguous axial images obtained through the abdomen and pelvis without IV contrast. Pilo nal and sagittal reformatted images were provided. This exam was performed according to our departmental dose-optimization program, which includes autom ated exposure control, adjustment of the mA and/or kV according to patient size and/or use of iterati ve reconstruction technique. COMPARISON: 05/05/2021 FINDINGS: Lung bases: Clear Liver: Grossly unremarkable. Gallbladder and biliary system: Prior cholecystectomy. Intrahepatic and extrahepatic biliary dilatati on and pneumobilia similar to the prior. Pancreas: Moderate pancreatic parenchymal atrophy and mild fatty replacement. Spleen: Grossly unremarkable Adrenals: Unremarkable Kidneys: 21 mm calculus within the upper pole collecting system on the right. Subcentimeter hypodensi ties bilaterally which are too small to characterize. No hydronephrosis. Bowel: Air-fluid levels throughout the small and large bowel. Small bowel loops within the left abdom en are mildly dilated. No discrete transition. The rectosigmoid colon appears minimally thickened. Appendix: The appendix is not definitively visualized. No findings to suggest acute appendicitis. Urinary bladder: The urinary bladder is decompressed. Reproductive: There has been a hysterectomy. No adnexal cysts or masses are identified. Lymph nodes: No pathologically enlarged lymph nodes. Peritoneum: Small amount of free fluid within the abdomen and pelvis. No free air. Vessels: Mild to moderate atherosclerotic disease. No abdominal aortic aneurysm. Abdominal wall: Small fat-containing umbilical hernia. Bones: Mild multilevel spondylosis. No acute fracture. IMPRESSION: 1. Nonspecific air-fluid levels present within the small and large bowel. This can be seen in the clinical setting of diarrhea. Small bowel loops within the left abdomen are mildly dilate d without discrete transition. The possibility of underlying ileus or early/partial small bowel obstr uction may be considered. 2. The rectosigmoid colon appears minimally thickened. This may be related to degree of distention. If clinical concern for this entity, mild nonspecific proctocolitis may be considered. 3. Other findings as above. Electronically signed by: Sunil Manuel MD 06/05/2021 12:12 AM CDT Due to temporary technical issues with the PACS/Fluency reporting system, reports are being signed by the in house radiologists without review as a courtesy to insure prompt reporting. The interpreting radiologist is fully responsible for the content of the report.
[2021-06-06] MEDS: HYDROCORTISONE SUC 100 MG INJ IV SCH ×2 (00:09→08:00)
[2021-06-06] MEDS: NA CHLORIDE 0.9% 1,000 ML IV SCH ×4 (00:10→21:11)
[2021-06-06] MEDS: CIPROFLOXACIN 400mg IV 400 MG/200 ML BAG IV SCH ×2 (01:33→14:30)
[2021-06-06] MEDS: METRONIDAZOLE 500mg IVPB 500 MG/100 ML BAG IV SCH ×3 (01:33→17:01)
[2021-06-06] MEDS: MORPHINE 2 MG/ML SYR IV PRN ×3 (01:33→11:33)
[2021-06-06] MEDS: clonazePAM 1 MG TAB PO PRN ×2 (04:46→23:24)
[2021-06-06] MEDS: HYDRALAZINE HCL 20 MG/ML VIAL IV PRN ×2 (05:47→17:01)
[2021-06-06 06:51] LABS: ALT/SGPT 22 U/L (12-78); AST/SGOT 16 U/L (15-37); Alkaline Phosphatase 76 U/L (45-117); BUN Blood Urea Nitrogen 6 mg/dL (7-18); Bicarbonate 32 mmol/L (21-32); Bilirubin Total 0.2 mg/dL (0.2-1.0); Glucose Level 129 mg/dL (74-106); Magnesium 1.5 mg/dL (1.8-2.4); Phosphorus 1.8 mg/dL (2.5-4.9); Protein, Total 6.6 g/dL (6.4-8.2); Sodium Level 143 mmol/L (136-145)
[2021-06-06 06:52] LABS: Potassium 2.6 mmol/L (3.5-5.1)
[2021-06-06] MEDS: ASPIRIN 81 MG CHEWABLE TABLET PO SCH (08:53)
[2021-06-06] MEDS: LEVOTHYROXINE SOD 0.025 MG TAB PO SCH (08:53)
[2021-06-06] MEDS: DULOXETINE 30 MG CAP PO SCH (08:53)
[2021-06-06] MEDS: ROSUVASTATIN 10 MG TAB PO SCH (08:53)
[2021-06-06] MEDS: HYDROCORTISONE 10 MG TAB PO SCH ×2 (08:53→21:10)
[2021-06-06] MEDS: OXYCODONE *CR* 10 MG TAB PO SCH ×3 (08:54→21:11)
[2021-06-06] MEDS: ENOXAPARIN 40 MG/0.4 ML SQ SCH (08:55)
[2021-06-06] MEDS: FLUDROCORTISONE 0.1 MG TAB PO SCH (09:00)
[2021-06-06] MEDS ORDERED: Magnesium Sulfate 2gm IVPB 2 G/50 ML BAG IV ONE (09:00)
[2021-06-06] MEDS ORDERED: POTASSIUM PHOS IN 0.9 % NACL 15 MMOL/250 ML BAG IV ONE (09:00)
[2021-06-06] MEDS ORDERED: POTASSIUM CL 40 MEQ in NA CHLORIDE 0.9% 500 ML IV SCH ×2 (10:00→13:00)
--- NOTE | 2021-06-06 11:09 | PN ---
Date of Progress Note: 06/06/2021 Subjective: The patient is awake, alert, tolerating clear liquid diet, passing gas. No diarrhea. N o abdominal pain. Minimal nausea, but no vomiting. Objective: Vital Signs: Stable and afebrile. Abdomen: Completely benign. Assessment: Gastroenteritis, improving slowly. Recommendations: Continue present care. We will advance diet to full liquids, decrease the IV fluid s to KVO. If she tolerates that, she can be discharged home on Cipamrita Flagyl later today or tomorrow . No need for any acute surgical intervention. Follow up with GI doctor on discharge. /MODL Voice ID: [id number] Report ID: [id number]
[2021-06-06] MEDS: ONDANSETRON 4 MG/2 ML VIAL IV PRN (14:29)
--- NOTE | 2021-06-06 15:06 | P.DS ---
Admission Date: 06/05/21 Discharge Date: 06/09/21 Disposition: ROUTINE DISCHARGE Discharge Condition: FAIR Reason for Admission: hypokalemia, diarrhea - Problems (1) Gastroenteritis Current Visit: Yes Status: Acute (2) GERD (gastroesophageal reflux disease) Current Visit: No Status: Chronic Qualifiers: Esophagitis presence: without esophagitis Qualified Code(s): K21.9 - Gastro-esophageal reflux disease without esophagitis (3) Irritable bowel disease Onset Date: 04/08/18 Current Visit: No Status: Chronic Qualifiers: Irritable bowel syndrome type: unspecified Qualified Code(s): K58.9 - Irritable bowel syndrome without diarrhea (4) Atrial fibrillation Current Visit: No Status: Acute Brief History of Present Illness: 65 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 She reported multiple large loose stools. Denied fever or melena. WBC 16.8. K 2.6. CT scan shows nonspecific air fluid levels present within small and large bowel which can be seen in clinical setting of diarrhea, small bowel loops within left abdomen are mildly dilated without discrete transition, which may represent underlying ileus or early partial SBO. Patient started on IV fluid, IV antibiotics and admitted for further management. Hospital Course: Patient admitted to the medical floor and placed on IV fluid. Also treated with IV ciprofloxacin and Flagyl for possible infectious enterocolitis/gastroenteritis. Fecal leukocyte stain was negative suggesting bacterial infection or inflammation unlikely. Patient's symptoms could be related to viral gastroenteritis/enterocolitis. She was given stress doses of IV hydrocortisone and continued on her home dose steroid therapy for [place]'s disease. Patient clinically improved with treatment. No more diarrhea during the hospital stay. Electrolyte abnormalities like hypokalemia and hypophosphatemia were corrected. Patient seen in consultation by general surgery Dr. Fatima who recommended medical management. Patient noted to have colonic ileus. Patient was not able to have a bowel movement over a 3 days. She stated it is a gradual process and has to take stool softener for several days before bowel movement. She is eager to go home. She is tolerating diet. I did not see much fecal retention in the colon. Patient is discharged per her request. Of note she developed atrial fibrillation which lasted briefly. She was seen by cardiology-Dr. Chávez and prescribed metoprolol. Patient is informed to return to the ED if she remained constipated despite stool softeners and stimulants. Vital Signs/Physical Exam: Temp Pulse Resp BP Pulse Ox 97.1 F 73 18 145/64 H 98 06/06/21 12:00 06/06/21 12:00 06/06/21 14:29 06/06/21 12:00 06/06/21 14:29 General: Alert, In no apparent distress, Oriented x3 HEENT: Mucous membr. moist/pink Neck: JVD not distended Respiratory: Clear to auscultation bilaterally, Normal air movement Cardiovascular: No edema, Regular rate/rhythm, Normal S1 S2 Gastrointestinal: Soft and benign, Non-distended, No tenderness Musculoskeletal: No swelling, No tenderness Integumentary: No rashes, No erythema Neurological: Normal strength at 5/5 x4 extr, Cranial nerves 3-12 intact Laboratory Data at Discharge: WBC 10.20 K/uL (4.3-10.9) D 06/05/21 09:17 Hgb 9.6 g/dL (12.0-15.0) L 06/05/21 09:17 Hct 28.8 % (36.0-45.0) L D 06/05/21 09:17 Plt Count 207 K/uL (152-406) D 06/05/21 09:17 PT 11.5 SECONDS (9.5-12.5) 06/04/21 23:20 INR 1.00 06/04/21 23:20 Sodium 143 mmol/L (136-145) 06/06/21 05:50 Potassium 2.6 mmol/L (3.5-5.1) L* 06/06/21 05:50 BUN 6 mg/dL (7-18) L 06/06/21 05:50 Creatinine 0.63 mg/dL (0.55-1.3) 06/06/21 05:50 Glucose 129 mg/dL (74-106) H 06/06/21 05:50 Phosphorus 1.8 mg/dL (2.5-4.9) L 06/06/21 05:50 Magnesium 1.5 mg/dL (1.8-2.4) L D 06/06/21 05:50 Total Bilirubin 0.2 mg/dL (0.2-1.0) 06/06/21 05:50 AST 16 U/L (15-37) 06/06/21 05:50 ALT 22 U/L (12-78) 06/06/21 05:50 Alkaline Phosphatase 76 U/L (45-117) 06/06/21 05:50 Lipase 26 U/L (73-393) L 06/04/21 23:20 Home Medications: Aspirin Chewable [Aspirin Chewable*] 81 mg PO DAILY 08/27/20 Duloxetine HCl 120 mg PO DAILY 08/27/20 Estradiol 2 mg PO DAILY 08/27/20 Fludrocortisone [Florinef *] 0.2 mg PO DAILY 08/27/20 Hydrocortisone [Cortef*] 20 mg PO BID 08/27/20 Levothyroxine Sodium 25 mcg PO DAILY 08/27/20 Oxycodone HCl [Oxycontin] 10 mg PO TID 08/27/20 Rosuvastatin Calcium 10 mg PO DAILY 08/27/20 Zaleplon 10 mg PO BEDTIME 08/27/20 clonazePAM [Klonopin*] 1 mg PO BIDP PRN 08/27/20 ARIPiprazole [Aripiprazole] 2 mg PO BEDTIME 06/05/21 Amitriptyline [Elavil*] 50 mg PO BEDTIME 06/05/21 Melatonin 10 mg PO BEDTIME 06/05/21 Ciprofloxacin HCl [Cipro 500 MG Tablet] 500 mg PO BID #20 tab 06/06/21 Potassium Chloride 20 meq PO DAILY #7 tablet.er 06/06/21 metroNIDAZOLE [Flagyl] 500 mg PO Q8H #30 tablet 06/06/21 Calcium Carbonate [Calcium] 500 mg PO TID #90 tablet 06/09/21 Magnesium Citrate [Citroma*] 300 ml PO 1X PRN #1 btl 06/09/21 Metoprolol Tartrate [Lopressor*] 50 mg PO BID #60 tab 06/09/21 Senosides [Senokot*] 17.2 mg PO BID #120 tab 06/09/21 New Medications: Calcium Carbonate [Calcium] 500 mg PO TID #90 tablet Ciprofloxacin HCl [Cipro 500 MG Tablet] 500 mg PO BID #20 tab Magnesium Citrate [Citroma*] 300 ml PO 1X PRN #1 btl PRN Reason: Constipation metroNIDAZOLE [Flagyl] 500 mg PO Q8H #30 tablet Metoprolol Tartrate [Lopressor*] 50 mg PO BID #60 tab Potassium Chloride 20 meq PO DAILY #7 tablet.er Senosides [Senokot*] 17.2 mg PO BID #120 tab Diet: Regular Activity: Ad hossein Followup: NONE,NONE [Primary Care Provider] - 1 Week Time spent managing pt's care (in minutes): 36
[2021-06-06 17:07] LABS: C.diff Antigen/Toxin Ag neg : Tox neg (NEG : NEG)
--- NOTE | 2021-06-06 17:57 | P.PN ---
Subjective Date of Service: 06/06/21 Chief Complaint: hypokalemia, diarrhea Patient reports feeling much better today. No fever.Potassium level is low. No diarrhea since admission. Patient tolerating full liquid diet. Physical Examination - Vital Signs Temperature: 97.4 F Blood Pressure: 178/84 Pulse: 82 Respirations: 20 Pulse Ox (%): 98 - Physical Exam General: Alert, In no apparent distress, Oriented x3 HEENT: Mucous membr. moist/pink Neck: JVD not distended Respiratory: Clear to auscultation bilaterally, Normal air movement Cardiovascular: No edema, Regular rate/rhythm, Normal S1 S2 Gastrointestinal: Soft and benign, Non-distended, No tenderness Musculoskeletal: No swelling, No tenderness Integumentary: No rashes Neurological: Normal strength at 5/5 x4 extr - Studies Microbiology Data (last 24 hrs): 06/04/21 22:25 Clean Catch Urine Nesbit Count - Final BETWEEN 10,000 & 100,000 CFU/ML 06/04/21 22:25 Clean Catch Urine - Final MIXED KIRSTEN. Assessment And Plan - Current Problems (Diagnosis) (1) Gastroenteritis Current Visit: Yes Status: Acute (2) GERD (gastroesophageal reflux disease) Current Visit: No Status: Chronic Qualifiers: Esophagitis presence: without esophagitis Qualified Code(s): K21.9 - Gastro-esophageal reflux disease without esophagitis (3) Irritable bowel disease Onset Date: 04/08/18 Current Visit: No Status: Chronic Qualifiers: Irritable bowel syndrome type: unspecified Qualified Code(s): K58.9 - Irritable bowel syndrome without diarrhea - Plan Continue supportive measures. Fecal leukocyte stain is negative, making bacterial infection or inflammation less likely. Diarrhea could be related to IBS or viral gastroenteritis. Diarrhea resolved. Advanced diet as tolerated Replete potassium and phosphate IV and orally Continue antibiotics for now. Continue IV hydration. Cortisol level within normal limit. Continue home dose steroid for [place]'s disease.
[2021-06-06] MEDS: ARIPIPRAZOLE 2 MG PO SCH (21:00)
[2021-06-06] MEDS: AMITRIPTYLINE 25 MG TAB PO SCH (21:10)
[2021-06-06] MEDS: MELATONIN 5 MG TABLET PO SCH (21:50)
[2021-06-06] MEDS ORDERED: POTASSIUM CL SA 10 MEQ TAB PO ONE (22:30)
[2021-06-07] MEDS: CIPROFLOXACIN 400mg IV 400 MG/200 ML BAG IV SCH ×2 (01:27→13:38)
[2021-06-07] MEDS: METRONIDAZOLE 500mg IVPB 500 MG/100 ML BAG IV SCH ×3 (01:27→17:18)
[2021-06-07 05:14] LABS: Absolute Lymphocytes (CBC) 1.1 K/uL (0.7-4.9); Basophils % 0.2 % (0-1.3); Hematocrit 27.9 % (36.0-45.0); Lymphocytes % 12.3 % (15.3-44.8); MPV 8.5 fL (7.6-11.3); RBC Red Blood Cell Count 3.12 M/uL (3.86-4.86)
[2021-06-07 05:30] LABS: Phosphorus 1.5 mg/dL (2.5-4.9); Potassium 3.5 mmol/L (3.5-5.1)
[2021-06-07] MEDS ORDERED: CALCIUM GLUC 10% INJ 4.65 MEQ in NA CHLORIDE 0.9% 100 ML IV ONE ×2 (05:58→08:24)
[2021-06-07] MEDS: POTASS/SODIUM PHOSPHATE 1 PKT POWD.PACK PO SCH ×3 (06:41→12:05)
[2021-06-07] MEDS ORDERED: CALCIUM GLUCONATE 1 GM IVPB 1 GM/50 ML BAG IV ONE (06:59)
[2021-06-07] MEDS ORDERED: POTASSIUM PHOS 20 MM in NA CHLORIDE 0.9% 500 ML IV ONE (08:26)
[2021-06-07] MEDS ORDERED: BISACODYL 10 MG RECTAL SUPP PR ONE (08:36)
[2021-06-07] MEDS ORDERED: POTASSIUM CL SA 10 MEQ TAB PO ONE (09:00)
[2021-06-07] MEDS: ENOXAPARIN 40 MG/0.4 ML SQ SCH (09:00)
[2021-06-07] MEDS: DULOXETINE 30 MG CAP PO SCH (09:01)
[2021-06-07] MEDS: ROSUVASTATIN 10 MG TAB PO SCH (09:01)
[2021-06-07] MEDS: OXYCODONE *CR* 10 MG TAB PO SCH ×3 (09:01→22:05)
[2021-06-07] MEDS: HYDROCORTISONE 10 MG TAB PO SCH ×2 (09:02→22:06)
[2021-06-07] MEDS: ASPIRIN 81 MG CHEWABLE TABLET PO SCH (09:02)
[2021-06-07] MEDS: FLUDROCORTISONE 0.1 MG TAB PO SCH (09:03)
[2021-06-07] MEDS: LEVOTHYROXINE SOD 0.025 MG TAB PO SCH (09:03)
[2021-06-07] MEDS: clonazePAM 1 MG TAB PO PRN (09:07)
[2021-06-07] MEDS ORDERED: POTASS/SODIUM PHOSPHATE 1 PKT POWD.PACK PO ONE (11:45)
[2021-06-07] MEDS: MORPHINE 2 MG/ML SYR IV PRN (12:05)
[2021-06-07] MEDS ORDERED: DRISDOL (VITAMIN D=ERGOCALCIFEROL) 50000 UNIT CAP PO ONE ×2 (13:40→14:00)
--- NOTE | 2021-06-07 14:52 | RAD REPORT ---
EXAM DESCRIPTION: RAD - Abdomen 1 View (KUB) - 06/07/2021 2:45 pm CLINICAL HISTORY: Ileus follow up Pain COMPARISON: No comparisons FINDINGS: Diffuse distention of bowel loops is again seen with fecal retention, compatible with ileu s. No evidence of pneumoperitoneum. Right upper quadrant calcification present likely renal stone. No significant bony findings. Right groin venous catheter noted. IMPRESSION: [id number] diffuse colonic ileus pattern is suspected.
[2021-06-07] MEDS: HYDRALAZINE HCL 20 MG/ML VIAL IV PRN (17:30)
--- NOTE | 2021-06-07 18:30 | P.PN ---
Subjective Date of Service: 06/07/21 Chief Complaint: hypokalemia, diarrhea Patient not complaining of constipation Potassium level is better but calcium level and phosphorus levels are low. No diarrhea since admission. Patient tolerating soft diet. Physical Examination - Vital Signs Temperature: 97.8 F Blood Pressure: 188/89 Pulse: 81 Respirations: 16 Pulse Ox (%): 96 - Physical Exam General: Alert, In no apparent distress HEENT: Mucous membr. moist/pink Neck: JVD not distended Respiratory: Clear to auscultation bilaterally, Normal air movement Cardiovascular: No edema, Regular rate/rhythm, Normal S1 S2 Gastrointestinal: Normal bowel sounds, Soft and benign, Non-distended, No tenderness Musculoskeletal: No swelling, No erythema Integumentary: No rashes Neurological: Normal strength at 5/5 x4 extr Assessment And Plan - Current Problems (Diagnosis) (1) Gastroenteritis Current Visit: Yes Status: Acute (2) GERD (gastroesophageal reflux disease) Current Visit: No Status: Chronic Qualifiers: Esophagitis presence: without esophagitis Qualified Code(s): K21.9 - Gastro-esophageal reflux disease without esophagitis (3) Irritable bowel disease Onset Date: 04/08/18 Current Visit: No Status: Chronic Qualifiers: Irritable bowel syndrome type: unspecified Qualified Code(s): K58.9 - Irritable bowel syndrome without diarrhea - Plan KUB results reviewed and reporting colonic ileus. Diarrhea resolved. Now has constipation Dulcolax suppository for constipation today. Bowel stimulants-Senna Fecal leukocyte stain is negative, making bacterial infection or inflammation less likely. Diarrhea could be related to IBS or viral gastroenteritis. Advanced diet as tolerated Replete potassium and phosphate IV. Replete calcium IV Continue antibiotics for now. Continue IV hydration. Cortisol level within normal limit. Continue home dose steroid for [place]'s disease.
[2021-06-07] MEDS ORDERED: METOPROLOL TARTRATE 5 MG/5 ML INJ IV STA ×2 (18:42→19:23)
[2021-06-07] MEDS ORDERED: DIGOXIN 0.25 MG/ML AMP IV ONE (19:08)
[2021-06-07] MEDS ORDERED: METOPROLOL TARTRATE 5 MG/5 ML INJ IV ONE (19:56)
[2021-06-07] MEDS: ARIPIPRAZOLE 2 MG PO SCH (21:00)
[2021-06-07] MEDS: AMITRIPTYLINE 25 MG TAB PO SCH (22:05)
[2021-06-07] MEDS: POTASSIUM CL SA 10 MEQ TAB PO SCH (22:05)
[2021-06-07] MEDS: SENOSIDES 8.6 MG TAB PO SCH (22:06)
[2021-06-07] MEDS: MELATONIN 5 MG TABLET PO SCH (22:38)
[2021-06-07] MEDS: METOPROLOL TAR 50 MG TAB PO SCH (23:23)
[2021-06-08] MEDS: MORPHINE 2 MG/ML SYR IV PRN ×2 (00:56→12:23)
[2021-06-08] MEDS: METRONIDAZOLE 500mg IVPB 500 MG/100 ML BAG IV SCH ×3 (01:12→17:04)
[2021-06-08] MEDS: CIPROFLOXACIN 400mg IV 400 MG/200 ML BAG IV SCH ×2 (01:12→13:56)
[2021-06-08] MEDS: NA CHLORIDE 0.9% 1,000 ML IV SCH (03:53)
[2021-06-08 05:36] LABS: Potassium 3.9 mmol/L (3.5-5.1)
[2021-06-08] MEDS: HYDROCORTISONE 10 MG TAB PO SCH ×2 (08:36→20:27)
[2021-06-08] MEDS: ASPIRIN 81 MG CHEWABLE TABLET PO SCH (08:36)
[2021-06-08] MEDS: POTASSIUM CL SA 10 MEQ TAB PO SCH ×2 (08:36→17:04)
[2021-06-08] MEDS: FLUDROCORTISONE 0.1 MG TAB PO SCH (08:37)
[2021-06-08] MEDS: DULOXETINE 30 MG CAP PO SCH (08:37)
[2021-06-08] MEDS: POTASS/SODIUM PHOSPHATE 1 PKT POWD.PACK PO SCH (08:37)
[2021-06-08] MEDS: LEVOTHYROXINE SOD 0.025 MG TAB PO SCH (08:38)
[2021-06-08] MEDS: ENOXAPARIN 40 MG/0.4 ML SQ SCH (08:38)
[2021-06-08] MEDS: METOPROLOL TAR 50 MG TAB PO SCH ×2 (08:38→20:29)
[2021-06-08] MEDS: SENOSIDES 8.6 MG TAB PO SCH ×2 (08:38→20:28)
[2021-06-08] MEDS: OXYCODONE *CR* 10 MG TAB PO SCH ×3 (08:38→20:27)
[2021-06-08] MEDS: ROSUVASTATIN 10 MG TAB PO SCH (08:39)
[2021-06-08] MEDS: clonazePAM 1 MG TAB PO PRN (08:52)
[2021-06-08] MEDS ORDERED: POLYETHYL GLY 3350 17 GM/DOSE PO ONE (12:20)
--- NOTE | 2021-06-08 12:50 | CON ---
Reason For Consultation: Admitted to Dr. Resendiz on 06/05/2021, with abdominal infection, hypokalemia , and diarrhea and while she was in the hospital being treated with antibiotics and hydration. She d eveloped atrial fibrillation. History Of Present Illness: Eryn is a 65-year-old woman, who has had a history of paroxysmal atrial fibrillation in the past. We took her off medicine a long time ago because she has not had atrial f ibrillation for many years. She had come in and was having abdominal pain and diarrhea. Potassium w as 3.8. Her calcium was 6.8. Her magnesium was 1.5. All of these were supplemented, but neverthele ss, she had an episode of atrial fibrillation with some chest pain with no nausea, vomiting, diaphore sis, PND, orthopnea, pedal edema, or syncope. When they called me about her yesterday, I gave her a dose of digoxin. She got IV metoprolol and p.o. metoprolol at this morning. She has a normal rhythm and she is asymptomatic. Past Medical History: Include a history of [place] disease, chronic pain, depression, early dementia , hyperlipidemia, irritable bowel syndrome as well as TIA. Medications: At home include, Sonata, amitriptyline, aspirin, clonazepam, estradiol, duloxetine, lev othyroxine, Florinef, oxycodone, and hydrocortisone. Review of Systems: Negative. Social History: Negative. Family History: Noncontributory. Physical Examination: Vital Signs: When I saw her this morning, her vital signs were stable. She was afebrile. She was i n sinus rhythm. HEENT: Negative. Neck: Supple with no bruit. Chest: Clear to auscultation and percussion. Cardiac: Revealed a regular rhythm and rate. No murmurs, gallops, or rubs. Abdomen: Benign. Extremities: Revealed no clubbing, cyanosis, or edema. Diagnostic Data: Her initial EKG showed sinus rhythm with LVH. Chest x-ray showed no acute process. Abdominal and pelvic CT scan showed nonspecific fluid levels within the small and large bowel consi stent with diarrhea, possible ileus, nonspecific proctocolitis. Her laboratory evaluations were stat ed earlier. There were corrected. Impression And Plan: Paroxysmal atrial fibrillation. I would send patient home on low-dose metoprol ol 25 b.i.d. and a baby aspirin. She may be a candidate for more serious anticoagulants down the estelle d, but I would like her to follow up in my office at this time. At that time, I will get an echocard iogram and decide. She may need to have an event monitor as well. Her other problems including Lizandro son disease, dementia, depression, chronic pain, hyperlipidemia, irritable bowel syndrome, and histor y of transient ischemic attack are stable at this point. I will continue on her home regimen, had lo w-dose metoprolol and aspirin. She can go home whenever it is okay with Dr. Resendiz. I will see her in the office soon. YOANDY/RUAPLI Voice ID: [id number] Report ID: [id number]
[2021-06-08] MEDS ORDERED: MAGNESIUM CITRATE 300 ML BOT PO SCH (15:00)
[2021-06-08] MEDS: AMITRIPTYLINE 25 MG TAB PO SCH (20:28)
[2021-06-08] MEDS: MELATONIN 5 MG TABLET PO SCH (20:28)
[2021-06-08] MEDS: ARIPIPRAZOLE 2 MG PO SCH (20:29)
[2021-06-09] MEDS: METRONIDAZOLE 500mg IVPB 500 MG/100 ML BAG IV SCH ×2 (01:34→09:49)
[2021-06-09] MEDS: CIPROFLOXACIN 400mg IV 400 MG/200 ML BAG IV SCH (01:34)
[2021-06-09] MEDS: MORPHINE 2 MG/ML SYR IV PRN (01:45)
[2021-06-09 07:26] LABS: BUN Blood Urea Nitrogen 7 mg/dL (7-18); Bicarbonate 31 mmol/L (21-32); Glucose Level 92 mg/dL (74-106); Magnesium 2.2 mg/dL (1.8-2.4); Potassium 4.3 mmol/L (3.5-5.1); Sodium Level 142 mmol/L (136-145)
[2021-06-09] MEDS: ROSUVASTATIN 10 MG TAB PO SCH (08:49)
[2021-06-09] MEDS: HYDROCORTISONE 10 MG TAB PO SCH (08:50)
[2021-06-09] MEDS: SENOSIDES 8.6 MG TAB PO SCH (08:50)
[2021-06-09] MEDS: OXYCODONE *CR* 10 MG TAB PO SCH (08:50)
[2021-06-09] MEDS: METOPROLOL TAR 50 MG TAB PO SCH (08:51)
[2021-06-09] MEDS: LEVOTHYROXINE SOD 0.025 MG TAB PO SCH (08:51)
[2021-06-09] MEDS: DULOXETINE 30 MG CAP PO SCH (08:51)
[2021-06-09] MEDS: ASPIRIN 81 MG CHEWABLE TABLET PO SCH (08:51)
[2021-06-09] MEDS: FLUDROCORTISONE 0.1 MG TAB PO SCH (08:53)
[2021-06-09] MEDS: POTASSIUM CL SA 10 MEQ TAB PO SCH (08:53)
[2021-06-09] MEDS: ENOXAPARIN 40 MG/0.4 ML SQ SCH (08:54)
[2021-06-09] MEDS: POTASS/SODIUM PHOSPHATE 1 PKT POWD.PACK PO SCH (09:48)
[2021-06-09 10:38] VITALS: O2SAT 97
[2021-06-09] MEDS: clonazePAM 1 MG TAB PO PRN (11:02)
[2021-06-09 13:59] VITALS: BP 145/64; TEMP 97.7
[2021-06-12 11:59] LABS: Vitamin D 1,25-Dihydroxy Total 74 pg/mL (18-72); Vitamin D,1,25-OH2, D2 <8 pg/mL
--- NOTE | 2021-06-20 19:27 | P.DS ---
Admission Date: 06/05/21 Discharge Date: 06/09/21 Disposition: ROUTINE DISCHARGE Discharge Condition: FAIR Reason for Admission: hypokalemia, diarrhea - Problems (1) Gastroenteritis Status: Acute (2) GERD (gastroesophageal reflux disease) Status: Chronic Qualifiers: Esophagitis presence: without esophagitis Qualified Code(s): K21.9 - Gastro-esophageal reflux disease without esophagitis (3) Irritable bowel disease Onset Date: 04/08/18 Status: Chronic Qualifiers: Irritable bowel syndrome type: unspecified Qualified Code(s): K58.9 - Irritable bowel syndrome without diarrhea (4) Atrial fibrillation Status: Acute Brief History of Present Illness: 65 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 She reported multiple large loose stools. Denied fever or melena. WBC 16.8. K 2.6. CT scan shows nonspecific air fluid levels present within small and large bowel which can be seen in clinical setting of diarrhea, small bowel loops within left abdomen are mildly dilated without discrete transition, which may represent underlying ileus or early partial SBO. Patient started on IV fluid, IV antibiotics and admitted for further management. Hospital Course: Patient admitted to the medical floor and placed on IV fluid. Also treated with IV ciprofloxacin and Flagyl for possible infectious enterocolitis/gastroenteritis. Fecal leukocyte stain was negative suggesting bacterial infection or inflammation unlikely. Patient's symptoms could be related to viral gastroenteritis/enterocolitis. 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 Patient clinically improved with treatment. No more diarrhea during the hospital stay. Electrolyte abnormalities like hypokalemia and hypophosphatemia were corrected. Patient seen in consultation by general surgery Dr. Fatima who recommended medical management. Patient noted to have colonic ileus. Patient was not able to have a bowel movement over a 3 days. She stated it is a gradual process and has to take stool softener for several days before bowel movement. She is eager to go home. She is tolerating diet. I did not see much fecal retention in the colon. Patient is discharged per her request. Of note she developed atrial fibrillation which lasted briefly. She was seen by cardiology-Dr. Chávez and prescribed metoprolol. Patient is informed to return to the ED if she remained constipated despite stool softeners and stimulants. Vital Signs/Physical Exam: Temp Pulse Resp BP Pulse Ox 97.7 F 70 18 145/64 H 96 06/09/21 12:00 06/09/21 12:00 06/09/21 12:00 06/09/21 12:00 06/09/21 12:00 General: In no apparent distress HEENT: Mucous membr. moist/pink Respiratory: Normal air movement Cardiovascular: Regular rate/rhythm, Normal S1 S2 Gastrointestinal: Soft and benign, Non-distended Musculoskeletal: No swelling Laboratory Data at Discharge: WBC 9.30 K/uL (4.3-10.9) 06/07/21 04:45 Hgb 9.3 g/dL (12.0-15.0) L 06/07/21 04:45 Hct 27.9 % (36.0-45.0) L 06/07/21 04:45 Plt Count 198 K/uL (152-406) 06/07/21 04:45 PT 11.5 SECONDS (9.5-12.5) 06/04/21 23:20 INR 1.00 06/04/21 23:20 Sodium 142 mmol/L (136-145) 06/09/21 06:30 Potassium 4.3 mmol/L (3.5-5.1) 06/09/21 06:30 BUN 7 mg/dL (7-18) 06/09/21 06:30 Creatinine 0.56 mg/dL (0.55-1.3) 06/09/21 06:30 Glucose 92 mg/dL (74-106) 06/09/21 06:30 Phosphorus 2.1 mg/dL (2.5-4.9) L 06/08/21 17:30 Magnesium 2.2 mg/dL (1.8-2.4) 06/09/21 06:30 Total Bilirubin 0.2 mg/dL (0.2-1.0) 06/06/21 05:50 AST 16 U/L (15-37) 06/06/21 05:50 ALT 22 U/L (12-78) 06/06/21 05:50 Alkaline Phosphatase 76 U/L (45-117) 06/06/21 05:50 Lipase 26 U/L (73-393) L 06/04/21 23:20 Home Medications: Aspirin Chewable [Aspirin Chewable*] 81 mg PO DAILY 08/27/20 Duloxetine HCl 120 mg PO DAILY 08/27/20 Estradiol 2 mg PO DAILY 08/27/20 Fludrocortisone [Florinef *] 0.2 mg PO DAILY 08/27/20 Hydrocortisone [Cortef*] 20 mg PO BID 08/27/20 Levothyroxine Sodium 25 mcg PO DAILY 08/27/20 Oxycodone HCl [Oxycontin] 10 mg PO TID 08/27/20 Rosuvastatin Calcium 10 mg PO DAILY 08/27/20 Zaleplon 10 mg PO BEDTIME 08/27/20 clonazePAM [Klonopin*] 1 mg PO BIDP PRN 08/27/20 ARIPiprazole [Aripiprazole] 2 mg PO BEDTIME 06/05/21 Amitriptyline [Elavil*] 50 mg PO BEDTIME 06/05/21 Melatonin 10 mg PO BEDTIME 06/05/21 Ciprofloxacin HCl [Cipro 500 MG Tablet] 500 mg PO BID #20 tab 06/06/21 Potassium Chloride 20 meq PO DAILY #7 tablet.er 06/06/21 metroNIDAZOLE [Flagyl] 500 mg PO Q8H #30 tablet 06/06/21 Calcium Carbonate [Calcium] 500 mg PO TID #90 tablet 06/09/21 Magnesium Citrate [Citroma*] 300 ml PO 1X PRN #1 btl 06/09/21 Metoprolol Tartrate [Lopressor*] 50 mg PO BID #60 tab 06/09/21 Senosides [Senokot*] 17.2 mg PO BID #120 tab 06/09/21 New Medications: Calcium Carbonate [Calcium] 500 mg PO TID #90 tablet Ciprofloxacin HCl [Cipro 500 MG Tablet] 500 mg PO BID #20 tab Magnesium Citrate [Citroma*] 300 ml PO 1X PRN #1 btl PRN Reason: Constipation metroNIDAZOLE [Flagyl] 500 mg PO Q8H #30 tablet Metoprolol Tartrate [Lopressor*] 50 mg PO BID #60 tab Potassium Chloride 20 meq PO DAILY #7 tablet.er Senosides [Senokot*] 17.2 mg PO BID #120 tab Diet: Regular Activity: Ad hossein Followup: NONE,NONE [Primary Care Provider] - 1 Week Time spent managing pt's care (in minutes): 36
--- NOTE | 2021-06-20 19:29 | P.PN ---
Subjective Date of Service: 06/08/21 Chief Complaint: hypokalemia, diarrhea Patient complaining of constipation No diarrhea since admission. Patient tolerating soft diet. Physical Examination - Vital Signs Temperature: 97.7 F Blood Pressure: 145/64 Pulse: 70 Respirations: 18 Pulse Ox (%): 96 - Physical Exam General: In no apparent distress HEENT: Mucous membr. moist/pink Neck: JVD not distended Respiratory: Clear to auscultation bilaterally, Normal air movement Cardiovascular: Regular rate/rhythm Gastrointestinal: Soft and benign, Non-distended Musculoskeletal: No swelling Neurological: Normal strength at 5/5 x4 extr Assessment And Plan - Current Problems (Diagnosis) (1) Gastroenteritis Status: Acute (2) GERD (gastroesophageal reflux disease) Status: Chronic Qualifiers: Esophagitis presence: without esophagitis Qualified Code(s): K21.9 - Gastro-esophageal reflux disease without esophagitis (3) Irritable bowel disease Onset Date: 04/08/18 Status: Chronic Qualifiers: Irritable bowel syndrome type: unspecified Qualified Code(s): K58.9 - Irritable bowel syndrome without diarrhea (4) Atrial fibrillation Status: Acute - Plan KUB results reviewed and reporting colonic ileus. Diarrhea resolved. Dulcolax suppository for constipation today. Bowel stimulants-Senna Fecal leukocyte stain is negative, making bacterial infection or inflammation less likely. Diarrhea could be related to IBS or viral gastroenteritis. Diet as tolerated Monitor and correct electrolytes as needed Continue antibiotics. Continue IV hydration. Cortisol level within normal limit. 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
== END 2021-06-09 12:20 | disposition home or self-care (01) | DRG 392 ==
LOC: ER 21:22 → ERHOLD 06-05 03:18 → 2ND 06-05 20:21
PROVIDERS: ADMIT Internal Medicine; ATTEND Internal Medicine
PROC: 06HY33Z Insertion of Infusion Device into Lower Vein, Percutaneous Approach (ICD-10-PCS; principal; 2021-06-05)
DX: A08.4 Viral intestinal infection, unspecified (principal); E27.1 Primary adrenocortical insufficiency; K56.7 Ileus, unspecified; E87.6 Hypokalemia; E03.9 Hypothyroidism, unspecified; D72.829 Elevated white blood cell count, unspecified; E78.5 Hyperlipidemia, unspecified; K21.9 Gastro-esophageal reflux disease without esophagitis; F32.9 Major depressive disorder, single episode, unspecified; A09 Infectious gastroenteritis and colitis, unspecified; F03.90 Unspecified dementia, unspecified severity, without behavioral disturbance, psychotic disturbance, mood disturbance, and anxiety; K59.00 Constipation, unspecified; E83.39 Other disorders of phosphorus metabolism; I48.0 Paroxysmal atrial fibrillation; E86.0 Dehydration; Z88.0 Allergy status to penicillin; Z88.1 Allergy status to other antibiotic agents; Z79.82 Long term (current) use of aspirin; Z86.73 Personal history of transient ischemic attack (TIA), and cerebral infarction without residual deficits; Z79.890 Hormone replacement therapy; Z79.899 Other long term (current) drug therapy; Z90.49 Acquired absence of other specified parts of digestive tract; Z90.710 Acquired absence of both cervix and uterus; Z20.822 Contact with and (suspected) exposure to COVID-19
CPT/HCPCS: 36415; 71045; 74018; 74176; 80048; 80053; 80076; 81003; 82306; 82310; 82330; 82533; 82652; 82947; 83605; 83690; 83735; 83880; 84100; 84132; 84145; 84439; 84443; 84484; 85025; 85610; 86850; 86900; 86901; 87045; 87046; 87086; 87088; 87324; 87449; 89055; 93005; 94760; 99285; J0360; J0610; J0744; J1160; J1650; J1720; J2270; J2405; J3475; J3480; J7030; J7040; U0003

== ENCOUNTER 2021-08-30 09:30 | Emergency (ER) | payer MEDICARE ==
[2021-08-30] MEDS ORDERED: MORPHINE 4 MG/ML SYR ONE ×2 (10:19→13:44)
[2021-08-30] MEDS ORDERED: ONDANSETRON 4 MG/2 ML VIAL ONE ×2 (10:20→13:44)
[2021-08-30] MEDS ORDERED: ONDANSETRON 4 MG (ODT) TAB ONE (10:55)
--- NOTE | 2021-08-30 11:43 | RAD REPORT ---
EXAM DESCRIPTION: US - Extrem Venous W Compress Carson - 08/30/2021 11:26 am CLINICAL HISTORY: Pain;Swelling Bilateral leg edema and swelling. COMPARISON: No comparisons TECHNIQUE: Real-time sonographic interrogation of the left and right lower extremity deep venous sys tems was performed. FINDINGS: Normal compressibility, flow augmentation, phasic flow and spontaneous flow is identified in both the left and right lower extremity deep venous systems. IMPRESSION: No sonographic evidence of left or right lower extremity deep venous thrombosis.
[2021-08-30 12:14] LABS: Absolute Lymphocytes (CBC) 0.7 K/uL (0.7-4.9); Basophils % 0.6 % (0-1.3); Hematocrit 30.4 % (36.0-45.0); Lymphocytes % 8.6 % (15.3-44.8); MPV 8.6 fL (7.6-11.3); RBC Red Blood Cell Count 3.62 M/uL (3.86-4.86)
[2021-08-30 12:19] LABS: Protime INR 0.99
[2021-08-30 12:32] LABS: Albumin 3.1 g/dL (3.4-5.0); Bilirubin Total 0.2 mg/dL (0.2-1.0); Potassium 4.6 mmol/L (3.5-5.1); Protein, Total 6.7 g/dL (6.4-8.2)
[2021-08-30 13:19] LABS: Blood Morphology Comment NOT SEEN (NOT SEEN); Platelet Estimate ADEQ; White Blood Cell Scan OK (OK)
--- NOTE | 2021-08-30 14:29 | ER ---
Nurse's Notes [facility] Name: Dulce Cerna Age: 65 yrs Sex: Female : 1955 Arrival Date: 08/30/2021 Time: 09:31 Bed 12 Private MD: Diagnosis: Localized swelling, mass and lump, right lower limb;Insect bite (nonvenomous) of lower leg;Eccymoses Presentation: 08/30 09:36 Chief complaint: Patient states: RLE pain, redness, swelling for 2 days. No fever. L ll1 ankle slightly swollen also. Coronavirus screen: Vaccine status: Patient reports receiving the 2nd dose of the covid vaccine. Client denies travel out of the [place] in the last 14 days. At this time, the client does not indicate any symptoms associated with coronavirus-19. Ebola Screen: Patient denies travel to an Ebola-affected area in the 21 days before illness onset. Initial Sepsis Screen: Does the patient meet any 2 criteria? No. Patient's initial sepsis screen is negative. Does the patient have a suspected source of infection? Yes: Other: leg pain/swelling. Risk Assessment: Do you want to hurt yourself or someone else? Patient reports no desire to harm self or others. Onset of symptoms was August 29, 2021. 09:36 Method Of Arrival: Ambulatory ll1 09:36 Acuity: TRACY 3 ll1 Triage Assessment: 09:40 General: Appears in no apparent distress. Behavior is calm, cooperative, appropriate ll1 for age. Pain: Complains of pain in RLE Pain currently is 9 out of 10 on a pain scale. Quality of pain is described as aching, Aggravated by increased activity. Neuro: No deficits noted. Cardiovascular: No deficits noted. Respiratory: No deficits noted. Musculoskeletal: Circulation, motion, and sensation intact. Capillary refill < 3 seconds, Range of motion: intact in all extremities, Swelling present in RLE Reports pain, redness, swelling RLE. Slight ankle swelling LLE. Historical: - Allergies: 09:36 PENICILLINS; ll1 09:36 Sulfa (Sulfonamide Antibiotics); ll1 - PMHx: 09:36 addisons; Early Dementia; Depression; Chronic pain; Hyperlipidemia; Irritable bowel ll1 syndrome; TIA; - Immunization history:: Client reports receiving the 2nd dose of the Covid vaccine, Flu vaccine is up to date. - Social history:: Smoking status: Patient denies any tobacco usage or history of. Screenin:42 Abuse screen: Denies threats or abuse. Nutritional screening: No deficits noted. ll1 Tuberculosis screening: No symptoms or risk factors identified. Fall Risk Total Vásquez Fall Scale indicates No Risk (0-24 pts). Assessment: 10:00 General: Appears in no apparent distress. comfortable, Behavior is calm, cooperative. vg1 Pain: Complains of pain in left lateral ankle and left medial ankle Pain currently is 9 out of 10 on a pain scale. Pain began 2-3 days ago. Aggravated by weight bearing. Neuro: Level of Consciousness is awake, alert, obeys commands, Oriented to person, place, time, situation. Cardiovascular: Patient's skin is warm and dry. Pulses are palpable in right dorsalis pedis artery and left dorsalis pedis artery. Respiratory: Airway is patent Respiratory effort is even, unlabored. GI: No signs and/or symptoms were reported involving the gastrointestinal system. : No signs and/or symptoms were reported regarding the genitourinary system. EENT: No signs and/or symptoms were reported regarding the EENT system. Derm: Skin is intact, is healthy with good turgor. Musculoskeletal: Circulation, motion, and sensation intact. Swelling present in left lateral ankle and left medial ankle. 13:16 Reassessment: Received VO from Katie RICHMOND to administer Morphine 4 mg IVP and Zofran 4 vg1 mg IVP x1. 13:24 Reassessment: Patient appears in no apparent distress at this time. Patient and/or vg1 family updated on plan of care and expected duration. Pain level reassessed. Patient is alert, oriented x 3, equal unlabored respirations, skin warm/dry/pink. rated left ankle pain 8/10. 15:09 Reassessment: Patient appears in no apparent distress at this time. Patient and/or vg1 family updated on plan of care and expected duration. Pain level reassessed. Patient is alert, oriented x 3, equal unlabored respirations, skin warm/dry/pink. Patient states feeling better. Vital Signs: 09:36 BP 120 / 72; Pulse 64; Resp 16; Temp 97.8; Pulse Ox 98% ; Weight 78.93 kg; Height 5 ft. ll1 2 in. (157.48 cm); Pain 9/10; 10:00 BP 111 / 54; Pulse 62; Resp 16; Pulse Ox 98% ; vg1 12:08 BP 122 / 66; Pulse 68; Resp 16; Pulse Ox 100% ; vg1 13:00 BP 126 / 65; Pulse 60; Resp 16; Pulse Ox 100% ; vg1 15:09 BP 115 / 79; Pulse 62; Resp 16; Pulse Ox 100% ; vg1 09:36 Body Mass Index 31.82 (78.93 kg, 157.48 cm) ll1 ED Course: 09:31 Patient arrived in ED. rg4 09:36 Arm band placed on. ll1 09:38 Triage completed. ll1 09:39 José Wilson NP is PHCP. pm1 09:39 Brad Hernández MD is Attending Physician. pm1 09:40 Michael Godfrey RN is Primary Nurse. ll1 09:42 Patient has correct armband on for positive identification. Bed in low position. Call ll1 light in reach. Side rails up X 1. Pulse ox on. NIBP on. 09:42 No provider procedures requiring assistance completed. ll1 10:20 Missed attempt(s): 24 gauge in right hand. Bleeding controlled, band aid applied, ll1 catheter tip intact. 10:21 Missed attempt(s): 22 gauge in right forearm. Bleeding controlled, band aid applied, ll1 catheter tip intact. 11:26 Extrem Venous W Compression Carson US In Process Unspecified. EDMS 11:33 Patient moved back from ultrasound. vg1 12:07 Initial lab(s) drawn, by ED staff, sent to lab. Inserted saline lock: 20 gauge in right vg1 EJ, using aseptic technique. ,using aseptic technique. completed by Katie RICHMOND. 15:11 IV discontinued, intact, bleeding controlled, No redness/swelling at site. Pressure vg1 dressing applied. Administered Medications: 10:33 Not Given (Physician Discretion): Zofran (Ondansetron) 4 mg IVP once; over 2 minutes vg1 10:34 CANCELLED (Physician Discretion): morphine 4 mg IVP once; RASS on ADMIN: Combtv4, Very vg1 Agttd3, Agttd2, Rstlss1, AlertClm0, Drwsy-1, Lt Sdtn-2, Mod Sdtn-3, Dp Sdtn-4, UnArsble-5 10:34 Drug: Ondansetron 4 mg Route: PO; vg1 13:17 Follow up: Response: No adverse reaction vg1 10:34 Drug: morphine 4 mg Route: IM; Site: right deltoid; vg1 11:30 Follow up: Response: No adverse reaction; Pain is decreased vg1 13:20 Drug: Zofran (Ondansetron) 4 mg Route: IVP; Site: right jugular; vg1 15:11 Follow up: Response: No adverse reaction vg1 13:23 Drug: morphine 4 mg Route: IVP; Site: right jugular; vg1 15:12 Follow up: Response: Marked relief of symptoms vg1 Outcome: 14:28 Discharge ordered by MD. pm1 15:11 Discharged to home ambulatory. vg1 15:11 Condition: stable 15:11 Discharge instructions given to patient, Instructed on discharge instructions, follow up and referral plans. Demonstrated understanding of instructions, follow-up care. 15:12 Patient left the ED. vg1 Signatures: Dispatcher [employer] EDMS José Wilson NP REGISTERED REPRESENTATIVE pm1 Noemy Rucker rg4 Ana Rucker RN RN vg1 Michael Godfrey RN RN ll1
--- NOTE | 2021-08-30 14:29 | EDPHYS ---
Physician Documentation [facility] Name: Dulce Cerna Age: 65 yrs Sex: Female : 1955 Arrival Date: 08/30/2021 Time: 09:31 Bed 12 Private MD: ED Physician Brad Hernández HPI: 08/30 09:47 This 65 yrs old Female presents to ER via Ambulatory with complaints of Leg pm1 Swelling. 09:47 The patient presents with pain, that is acute, swelling. The complaints affect the pm1 right castillo and anterior aspect of right ankle and left ankle. Context: The problem was sustained at an unknown site, resulted from an unknown cause, Patient suspect possible insect bite, the patient can fully bear weight, the patient is able to ambulate. Onset: The symptoms/episode began/occurred 2 day(s) ago. Modifying factors: The symptoms are alleviated by nothing. the symptoms are aggravated by nothing. Associated signs and symptoms: Pertinent negatives calf tenderness, fever, numbness, tingling. Treatment prior to arrival includes: no previous treatment. Severity of symptoms: in the emergency department the symptoms are unchanged. The patient has been recently seen by a physician: the patient's primary care provider, with similar presenting complaints, and was sent to the [facility] Emergency Department for further evaluation. Historical: - Allergies: 09:36 PENICILLINS; ll1 09:36 Sulfa (Sulfonamide Antibiotics); ll1 - PMHx: 09:36 addisons; Early Dementia; Depression; Chronic pain; Hyperlipidemia; Irritable bowel ll1 syndrome; TIA; - Immunization history:: Client reports receiving the 2nd dose of the Covid vaccine, Flu vaccine is up to date. - Social history:: Smoking status: Patient denies any tobacco usage or history of. ROS: 09:47 Constitutional: Negative for fever, chills, and weight loss, Cardiovascular: Negative pm1 for chest pain, palpitations, and edema, Respiratory: Negative for shortness of breath, cough, wheezing, and pleuritic chest pain, Abdomen/GI: Negative for abdominal pain, nausea, vomiting, diarrhea, and constipation. 09:47 Neuro: Negative for headache, weakness, numbness, tingling, and seizure. 09:47 MS/extremity: Positive for swelling, of the Left and right ankle, right castillo, Negative for decreased range of motion, deformity. 09:47 Skin: Positive for ecchymosis, of the medial aspect of right calf. 09:47 All other systems are negative. Exam: 09:47 Constitutional: This is a well developed, well nourished patient who is awake, alert, pm1 and in no acute distress. Head/Face: Normocephalic, atraumatic. 09:47 Cardiovascular: Exam negative for acute changes, Rate: normal, Rhythm: regular, Pulses: no pulse deficits are appreciated. 09:47 Respiratory: Exam negative for acute changes, respiratory distress, shortness of breath. 09:47 Musculoskeletal/extremity: Exam is negative for acute changes. 09:47 Skin: Appearance: normal except for affected area, abscess, not appreciated, cellulitis, is not appreciated, Appearance similar to mosquito bite, circular wheal with central dot, to right castillo. 09:47 Neuro: Exam negative for acute changes, Orientation: is normal, Mentation: is normal, Motor: is normal, moves all fours. Vital Signs: 09:36 BP 120 / 72; Pulse 64; Resp 16; Temp 97.8; Pulse Ox 98% ; Weight 78.93 kg; Height 5 ft. ll1 2 in. (157.48 cm); Pain 9/10; 10:00 BP 111 / 54; Pulse 62; Resp 16; Pulse Ox 98% ; vg1 12:08 BP 122 / 66; Pulse 68; Resp 16; Pulse Ox 100% ; vg1 13:00 BP 126 / 65; Pulse 60; Resp 16; Pulse Ox 100% ; vg1 15:09 BP 115 / 79; Pulse 62; Resp 16; Pulse Ox 100% ; vg1 09:36 Body Mass Index 31.82 (78.93 kg, 157.48 cm) ll1 Procedures: 12:08 Peripheral line: by aseptic technique a peripheral line was placed in the right pm1 external jugular vein. MDM: 09:39 Patient medically screened. pm1 14:26 Data reviewed: vital signs. Data interpreted: Pulse oximetry: on room air is 100 %. pm1 Interpretation: normal. 14:26 Counseling: I had a detailed discussion with the patient and/or guardian regarding: the pm1 historical points, exam findings, and any diagnostic results supporting the discharge/admit diagnosis, lab results, radiology results, the need for outpatient follow up, to return to the emergency department if symptoms worsen or persist or if there are any questions or concerns that arise at home. 08/30 09:46 Order name: CBC with Diff; Complete Time: 13:25 pm1 08/30 09:46 Order name: CMP; Complete Time: 12:35 pm1 08/30 09:46 Order name: Extrem Venous W Compression Carson US; Complete Time: 11:47 pm1 08/30 09:46 Order name: PT-INR; Complete Time: 12:44 pm1 08/30 12:18 Order name: CBC Smear Scan; Complete Time: 13:25 EDMS 08/30 09:46 Order name: IV Saline Lock; Complete Time: 12:07 pm1 Administered Medications: 10:33 Not Given (Physician Discretion): Zofran (Ondansetron) 4 mg IVP once; over 2 minutes vg1 10:34 CANCELLED (Physician Discretion): morphine 4 mg IVP once; RASS on ADMIN: Combtv4, Very vg1 Agttd3, Agttd2, Rstlss1, AlertClm0, Drwsy-1, Lt Sdtn-2, Mod Sdtn-3, Dp Sdtn-4, UnArsble-5 10:34 Drug: Ondansetron 4 mg Route: PO; vg1 13:17 Follow up: Response: No adverse reaction vg1 10:34 Drug: morphine 4 mg Route: IM; Site: right deltoid; vg1 11:30 Follow up: Response: No adverse reaction; Pain is decreased vg1 13:20 Drug: Zofran (Ondansetron) 4 mg Route: IVP; Site: right jugular; vg1 15:11 Follow up: Response: No adverse reaction vg1 13:23 Drug: morphine 4 mg Route: IVP; Site: right jugular; vg1 15:12 Follow up: Response: Marked relief of symptoms vg1 Disposition: 17:34 Co-signature as Attending Physician, Brad Hernández MD I agree with the assessment and rn plan of care. Attestation: The patient's history, exam findings, diagnostics, and a summary of any interventions or procedures was reviewed in detail with José Wilson NP. Disposition Summary: 08/30/21 14:28 Discharge Ordered Location: Home pm1 Problem: new pm1 Symptoms: have improved pm1 Condition: Stable pm1 Diagnosis - Localized swelling, mass and lump, right lower limb pm1 - Insect bite (nonvenomous) of lower leg pm1 - Eccymoses pm1 Followup: pm1 - With: Emergency Department - When: As needed - Reason: Worsening of condition Followup: pm1 - With: Private Physician - When: 2 - 3 days - Reason: Recheck today's complaints, Continuance of care, Re-evaluation by your physician Discharge Instructions: - Discharge Summary Sheet pm1 - Insect Bite, Adult pm1 Forms: - Medication Reconciliation Form pm1 - Thank You Letter pm1 - Antibiotic Education pm1 - Prescription Opioid Use pm1 Signatures: Dispatcher [employer] EDMS Brad Hernández MD MD rn José Wilson, TAILORING TEACHER TAILORING TEACHER pm1 Ana Rucker RN RN vg1 Michael Godfrey RN RN ll1 Corrections: (The following items were deleted from the chart) 10:34 09:46 morphine 4 mg IVP once; RASS on ADMIN: Combtv4, Very Agttd3, Agttd2, Rstlss1, vg1 AlertClm0, Drwsy-1, Lt Sdtn-2, Mod Sdtn-3, Dp Sdtn-4, UnArsble-5 ordered. pm1 10:34 10:34 morphine 4 mg IVP once; RASS on ADMIN: Combtv4, Very Agttd3, Agttd2, Rstlss1, vg1 AlertClm0, Drwsy-1, Lt Sdtn-2, Mod Sdtn-3, Dp Sdtn-4, UnArsble-5 ordered. vg1
[2021-08-30 15:18] VITALS: TEMP 97.8
[2021-08-30 15:20] VITALS: O2SAT 100
[2021-08-30 15:23] VITALS: BP 115/79
== END 2021-08-30 15:12 | disposition home or self-care (01) ==
LOC: ER 09:30
PROC: 05HP33Z Insertion of Infusion Device into Right External Jugular Vein, Percutaneous Approach (ICD-10-PCS; principal; 2021-08-30)
DX: S80.861A Insect bite (nonvenomous), right lower leg, initial encounter (principal); R22.41 Localized swelling, mass and lump, right lower limb; R58 Hemorrhage, not elsewhere classified; Z88.0 Allergy status to penicillin; Z88.2 Allergy status to sulfonamides
CPT/HCPCS: 85025; 36415; 85610; 80053; 93970; 96375; 96372; 96374; 99284; 36569; J2405

== ENCOUNTER 2022-01-05 20:31 | Inpatient (IN) | payer OTHER ==
--- OUTSIDE RECORDS SUMMARY | 2022-01-05 20:34 | XMS REPORT | Continuity of Care Document ---
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 2-19 it y of present present 00:00: [address] Chest pain Chest pain Disease Active U nivers 2-19 ity of 00:00: [address] Obesity Obesity Disease Active Univers (BMI (BMI 2-19 ity of 30-39.9) 30-39.9) 00:00: [address] Elevated Elevated Disease Active Unive rs alkaline alkaline 7-18 [place] 00 [facility] Abnormal Abnormal Disease Active Unive rs thyroid thyroid 7-18 [place] blood [place] [facility] Martha Martha Disease Active Univers disease disease 7-18 ity of 00:00: [address] Allergies, Adverse Reactions, Alerts Allergy Allergy Status Severity Reaction(s) Onset Inactive Treating Comm ents Source Name Type Date Date Clinician Penicill Propensi Active Anaphylaxis 2006-11 U nivers ins ty to 0-30 ity of adverse 00:00: [place] reaction 00 [facility] s Branch Sulfa Propensi Active Anaphylaxis 2006-11 Uni vers (Sulfona ty to 0-30 ity of mide adverse 00:00: [place] Antibiot reaction 00 Medica l ics) s Branch PENICILL Drug Active Anaphylaxis 2006-11 Uni vers INS Class 0-30 ity of 00:00: [place] 00 Medical Branch SULFA Drug Active Anaphylaxis 2006-11 Unive rs (SULFONA Class 0-30 ity of MIDE 00:00: [place] ANTIBIOT 00 Medical ICS) Branch Social History Social Habit Start Date Stop Date Quantity Comments Source Exposure to Not sure [facility] SARS-CoV-2 [facility] (event) [place] Alcohol intake 2021-11-22 2021-11-22 Lifetime University of 00:00:00 00:00:00 non-drinker [facility] (finding) [place] Tobacco use and 2017-06-09 2017-06-09 Never used Universit y of exposure 00:00:00 00:00:00 [facility] Sex Ass[birth year] Universit y of 00:00:00 00:00:00 [facility] Smoking Status Start Date Stop Date Source Former smoker 2017-06-09 00:00:00 2017-06-09 00:00:00 Universi ty of [facility] Medications Ordered Filled Start Stop Current Ordering Indication Dosage Frequency Signature Comments Components Source Medication Medication Date Date Medication? Clinician (SIG) Name Name rosuvastati 2020-11 Yes 10mg Take 10 mg Univers n 10 mg 2-31 by mouth ity of tablet 10:28: at [place] 48 bedtime. Medical Branch melatonin 2020-11 Yes 10mg Take 10 mg Un siddharth 10 mg Tab 2-31 by mouth. ity o f 10:28: [place] 00 Medical Branch DULoxetine 2020-11 Yes 60mg Take 60 mg U nivers 60 mg 2-31 by mouth ity of capsule 10:27: daily. [address] Branch estradiol 2 2020-11 Yes 2mg Take 2 mg U nivers mg tablet 2-31 by mouth ity of 10:27: daily. [place] 59 [facility] Branch BABY 2020-11 Yes 81mg Take 81 mg Univers ASPIRIN 2-31 by mouth. ity of ORAL 10:27: [place] 58 Medical Branch clonazePAM 2020-11 Yes 2mg Take 2 mg Un siddharth 2 mg tablet 2-31 by mouth 3 it y of 10:27: (three) [place] 58 times Medical daily. Branch metoprolol 2020-11 Yes 37.5mg Take 37.5 Univers tartrate 2-31 mg by ity of 37.5 mg Tab 00:00: mouth [place] 00 daily. Medical Branch hydrocortis 2020-11 Yes [id number] TAKE TWO Univers one 10 mg 2-31 TABLETS BY ity of tablet 00:00: MOUTH IN [place] 00 THE Medical MORNING Branch AND ONE TABLET AT 2:00PM, take extra on sick days levothyroxi 2020-11 Yes [id number] 25ug Take 1 Univers ne 25 mcg 2-31 tablet by ity o f tablet 00:00: mouth [place] 00 every Medical morning. Branch ALENDRONATE 2020-11 Yes [id number] 70mg TAKE 1 Univers 70 mg 2-03 TABLET BY ity of tablet 00:00: MOUTH [place] 00 WEEKLY Medical Branch fludrocorti 2020- No [id number] .2mg Take 2 Univers sone 0.1 mg 6-11 12-31 tablets by i ty of tablet 00:00: 00:00 mouth [place] 00 :00 daily. Medical Branch hydrocortis 2020- No [id number] TAKE TWO Univers one 10 mg 6-11 12-31 TABLETS BY ity of tablet 00:00: 00:00 MOUTH IN [place] 00 :00 THE Medical MORNING Branch AND ONE TABLET AT 2:00PM, take extra on sick days levothyroxi 2020- No [id number] 25ug Take 1 Univers ne 25 mcg 6-11 12-31 tablet by ity of tablet 00:00: 00:00 mouth [place] 00 :00 every Medical morning. Branch Oxycodone Yes Univers 10 mg Tab 2-08 ity of 00:00: [place] 00 Medical Branch zaleplon 5 2017- Yes Univers mg capsule 1-11 ity of 00:00: [place] 00 Medical Branch amitriptyli 2016-0 Yes 200mg Take 200 U nivers ne 100 mg 7-01 mg by ity of tablet 00:00: mouth at [place] 00 bedtime. Medical Branch omeprazole 2016- Yes 20mg Take 20 mg U nivers 20 mg 6-15 by mouth ity of capsule 00:00: daily. [address] ALPRAZolam Yes 1mg Take 1 mg Un siddharth 1 mg tablet 4-25 by mouth ity of 00:00: daily. [address] Immunizations Ordered Filled Immunization Date Status Comments Sour e Immunization Name Name SARS-COV-2 COVID-19 2021-02-04 Completed Unive rsity of PFIZER VACCINE 00:00:00 [facility] SARS-COV-2 COVID-19 2021-01-14 Completed Unive rsity of PFIZER VACCINE 00:00:00 [facility] Influenza Virus 2018-01-12 Completed Universit y of Vaccine Quad IM 3+ 00:00:00 [facility] Vital Signs Vital Name Observation Time Observation Value Comments Source Systolic blood 2021-11-22 16:08:00 142 mm[Hg] Univer sity [facility] Diastolic blood 2021-11-22 16:08:00 81 mm[Hg] Unive rsity [facility] Heart rate 2021-11-22 16:07:00 93 /min [facility] Body height 2021-11-22 16:07:00 157.5 cm [facility] Body weight 2021-11-22 16:07:00 78.2 kg [facility] BMI 2021-11-22 16:07:00 31.53 kg/m2 [facility] Oxygen saturation 2021-11-22 16:07:00 99 /min [facility] in Arterial blood [facility] by Pulse oximetry Procedures This patient has no known procedures. Encounters Start End Encounter Admission Attending Care Care Encounter Source Date/Time Date/Time Type Type Clinicians Facility Department ID 2021-11-22 2021-11-22 Office CARLENE Ortiz [id number] Univers 10:00:00 10:45:13 Visit Jose Mister [employer] [id number] it y of [place] [id number] Vijay as CULLEN?BLEA [id number] Co hinaal [address] MEDICAL OFFICE BUILDING 2021-11-22 2021-11-22 Outpatient R CARLENE ORTIZ [facility] [id number] Univers 10:00:00 10:45:13 JOSE coello [facility] 2021-05-15 2021-05-15 Orders Doctor PATT [id number] 00:00:00 00:00:00 Only Unassigned, NIEVES [id number] [facility] [id number] 2021-05-03 2021-05-03 Office Angel [facility] [id number] 13:19:28 14:16:38 Visit Jose Segal [id number] [place] [id number] [place] [phone] [facility] [address] Results Test Description Test Time Test Comments Results Result Comments Source SARS-COV2/RT-PCR ([facility]) 2020-06-25 15:01:00 Test Item Value Reference Range Interpretation Comme nts SARS-COV2/RT-PCR (test code = 0711202) Negative Not Detected, N egative, See external report for linked test SARS-COV-2 PERFORMING LAB (test code = [facility] [id number]) Negative results do not preclude SARS-CoV-2 infection and should not be used as the sole basis for patient management decisions. Negative results must be combined with clinical observations, patient history, and epidemiological information. A false negative result may occur if a specimen is improperly collected, transported or handled.The limit of detection for this assay is 250 copies/mL.This SARS CoV-2 test is a rapid, real-time RT-PCR test intended for the qualitative detection of nucleic acid from SARS-CoV-2 in a nasopharyngeal swab specimen collected from individuals suspected of COVID-19 by their healthcare provider.This test has not been Food and Drug Administration (FDA) cleared or approved and has been authorized by FDA under an Emergency Use Authorization (EUA). This EUA will be effective until the declaration that circumstances exist justifying the authorization of the emergency use of in vitro diagnostic tests for detection and/or diagnosis of COVID-19 is terminated under Section 564(b)(2) of the Act or the EUA is revoked under Section 564(g) of the Act.Fact Sheet for Healthcare Pro viders:https://www.[employer].com/Documents/Xpert%20Xpress%20SARS%20CoV-2/Fact%20Sh eets/302-3802%83OLLA-PNN-3%20HEALTHCARE%20PROVIDERS%20FACT%20SHEET.pdfFact Sheet for Healthcare Patients:https://www.[employer]eem[employer]FightMe/Documents/Xpert%20Xpress%20SARS%20CoV-2/Fact%20Sheets/302-3801%20SARS-COV -2%20PATIENT%20FACT%20SHEET.pdfPerforming Laboratory:[facility] [facility].[place], [place] [address]YLFP-SNL6/RT-PCR ([facility]) 2020-05-25 01:10:00 Test Item Value Reference Range Interpretation Comments SARS-COV2/RT-PCR (test code = Negative Not Detected, Negative [id number]) SARS-COV-2 PERFORMING LAB [facility] (test code = [id number]) Negative result for this test determines that SARS-CoV-2 RNA was not present in the specimen above the Limit of Detection (LOD). However, Negative results do not preclude SARS-CoV-2 infection and should not be used as the sole basis for treatment or patient management decisions. Negative results mustbe combined with clinical observations, patient history, and epidemiological information. A false negative result may occur if a specimen is improperly collected, transported or handled. A false negative result should be considered if patient's recent exposures or clinical presentation indicate that COVID-19 (SARS-CoV-2) is likely and diagnostic tests for other causes of illness are negative. Re-testing should be considered in cases of suspected false negatives.The limit of detection for this assay is 800 copies/mL.This SARS CoV-2 test is a real-time RT-PCR test intended for the qualitative detection of nucleic acid from SARS-CoV-2 in a nasopharyngeal swab specimen collected from individuals suspected of COVID-19 by their healthcare provider.This test has not been Food and Drug Administration (FDA) cleared or approved. This is a modified version of an approved Emergency Use Authorization (EUA) and is in the process of review by the FDA. Once authorized by the FDA, the issued EUA will be effective until the declaration that circumstances exist justifying the authorization of the emergency use of in vitro diagnostic tests for detection and/or diagnosis of COVID-19 is terminated under Section 564(b)(2) of the Act or the EUA is revoked under Section 564(g) of the Act.Fact Sheet for Healthcare Providers:https://www.[employer]/sites/default/files/product/documents/Fact_Shee x_EP_Tpdifcqse_Vvlq_PQGF-ReP-0.pdfFact Sheet for Healthcare Patients:https://www.[employer]/sites/default/files/product/ documents/Hfiy_Gyzum_Qxwgdubx_Cggx_LLDH-YtP-0.pdfPerforming Laboratory:[facility] [place] [address]
[2022-01-05] MEDS ORDERED: ALBUTEROL 2.5 MG/3 ML NEB SOL ONE (21:09)
[2022-01-05] MEDS ORDERED: IPRATROPIUM BROM 0.5MG/2.5ML ONE (21:10)
--- NOTE | 2022-01-05 21:40 | RAD REPORT ---
EXAM DESCRIPTION: RAD - Chest Single View - 01/05/2022 9:15 pm CLINICAL HISTORY: DYSPNEA COMPARISON: Portable 06/04/2021 TECHNIQUE: AP portable chest image was obtained 01/05/2022 9:15 pm . FINDINGS: No dense mass or consolidation. Low lung volumes are present accentuating the interstitial pattern. Mild bibasilar interstitial edema or infiltrate cannot be excluded. Upper lobe vasculature within normal limits. Heart size normal. No measurable pleural effusion and no pneumothorax. No acute bony abnormality seen. No acute aortic findings suspected. IMPRESSION: Increased bibasilar interstitial pattern all or mostly due to shallow inspiration. Lung base interstitial edema or infiltrate cannot be excluded.
[2022-01-05 21:45] LABS: Absolute Lymphocytes (CBC) 0.8 K/uL (0.7-4.9); Hematocrit 34.3 % (36.0-45.0); Lymphocytes % 6.3 % (15.3-44.8); MPV 8.7 fL (7.6-11.3); RBC Red Blood Cell Count 4.12 M/uL (3.86-4.86)
[2022-01-05 21:46] LABS: Protime INR 1.01
[2022-01-05 22:07] LABS: Albumin 3.4 g/dL (3.4-5.0); Bilirubin Direct 0.1 mg/dL (0-0.2); Bilirubin Total 0.2 mg/dL (0.2-1.0); Potassium 3.9 mmol/L (3.5-5.1); Protein, Total 7.6 g/dL (6.4-8.2)
[2022-01-05 22:12] LABS: SARS-COV-2 RT PCR NEGATIVE (NEGATIVE)
--- NOTE | 2022-01-05 22:34 | ER ---
Nurse's Notes [facility] Name: Dulce Cerna Age: 66 yrs Sex: Female : 1955 Arrival Date: 01/05/2022 Time: 20:33 Bed 6 Private MD: Diagnosis: Other pneumonia, unspecified organism Presentation: 01/05 20:41 Chief complaint: EMS states: Difficulty breathing since 2pm. Coronavirus screen: st1 Vaccine status: Patient reports receiving the 2nd dose of the covid vaccine. [employer] Client denies travel out of the [place] in the last 14 days. Ebola Screen: No symptoms or risks identified at this time. Initial Sepsis Screen: Does the patient meet any 2 criteria? No. Patient's initial sepsis screen is negative. Risk Assessment: Do you want to hurt yourself or someone else? Patient reports no desire to harm self or others. Onset of symptoms was January 05, 2022 at 14:00. 20:41 Method Of Arrival: EMS: [facility] st1 20:43 Acuity: TRACY 3 st1 21:22 Initial Sepsis Screen: Does the patient have a suspected source of infection? No. al4 Patient's initial sepsis screen is negative. Triage Assessment: 20:44 General: Appears in no apparent distress. uncomfortable, obese, well groomed, Behavior st1 is cooperative, anxious. Pain: Denies pain. Respiratory: Reports shortness of breath at rest on exertion since 2pm. Musculoskeletal: No deficits noted. Historical: - Allergies: 20:43 PENICILLINS; st1 20:43 Sulfa (Sulfonamide Antibiotics); st1 - Home Meds: 20:43 amitriptyline 100 mg Oral tab 1 tab once daily [Active]; aspirin 81 mg Oral TbEC 1 tab st1 once daily [Active]; clonazepam 1 mg Oral tab 1 tab 2 times per day [Active]; duloxetine 60 mg Oral cpDR 2 caps once daily [Active]; estradiol 2 mg Oral tab 1 tab once daily [Active]; fludrocortisone 0.1 mg Oral tab 1 tab once daily for Symptomatic Orthostatic Hypotension [Active]; hydrocortisone 10 mg Oral tab [Active]; levothyroxine 25 mcg tab 1 tab once daily [Active]; oxycodone 10 mg Oral tab 1 tab three times a day [Active]; Sonata 5 mg Oral cap 2 caps once daily [Active]; zaleplon 5 mg Oral cap 1 cap once daily [Active]; - 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 - Social history:: Smoking status: Patient/guardian denies using tobacco, the patient reports quitting approximately 20 years ago. Screenin:21 Abuse screen: Denies threats or abuse. Nutritional screening: No deficits noted. al4 Tuberculosis screening: No symptoms or risk factors identified. Fall Risk No fall in past 12 months (0 pts). Secondary diagnosis (15 points) IV access (20 points). Ambulatory Aid- None/Bed Rest/Nurse Assist (0 pts). Gait- Normal/Bed Rest/Wheelchair (0 pts) Mental Status- Oriented to own ability (0 pts). Total Vásquez Fall Scale indicates Low Risk Score (25-44 pts). Fall prevention measures have been instituted. Side Rails Up X 2 Placed close to Nursing Station Frequent Obs/Assesments occuring As available Patient and Family Educated on Fall Prevention Program and strategies. Assessment: 21:29 General: Appears in no apparent distress. comfortable, Behavior is calm, cooperative. al4 Pain: Denies pain. Neuro: Level of Consciousness is awake, alert, obeys commands, Oriented to person, place, time, situation. Cardiovascular: Capillary refill < 3 seconds Patient's skin is warm and dry. Rhythm is regular. Respiratory: Airway is patent Respiratory effort is even, Respiratory pattern is regular, symmetrical, Breath sounds with wheezes Onset: The symptoms/episode began/occurred today. Respiratory: Respiratory effort is Respiratory pattern is Breath sounds with wheezes bilaterally. the patient has moderate shortness of breath. GI: No signs and/or symptoms were reported involving the gastrointestinal system. : No signs and/or symptoms were reported regarding the genitourinary system. EENT: No signs and/or symptoms were reported regarding the EENT system. Derm: Skin is intact, Skin temperature is warm. Musculoskeletal: Circulation, motion, and sensation intact. Range of motion: intact in all extremities. 22:12 Reassessment: Patient is alert, oriented x 3, equal unlabored respirations, skin al4 warm/dry/pink. warm blanket given.. 22:28 Reassessment: lab contacted to come draw blood cultures. will give antibiotics after al4 blood cultures are drawn. ERP aware. 23:17 Reassessment: blood cultures drawn by lab. patient complains of pain and nausea - al4 verbal order by ERP for Zofran and oxycodone. 23:30 Reassessment: Patient is alert, oriented x 3, equal unlabored respirations, skin al4 warm/dry/pink. 01/06 00:04 Reassessment: patient becoming more labored to breathe while talking. CARLYN Hernandez aware. al4 00:50 Reassessment: Patient and/or family updated on plan of care and expected duration. Pain al4 level reassessed. 01:26 Reassessment: The IV in the patients left AC blew at CT scan. It was removed with the st1 catheter intact. Dressing applied and bleeding controlled. . Vital Signs: 01/05 20:45 BP 120 / 88; Pulse 66; Resp 20; Temp 98.7; Pulse Ox 95% on 2 lpm NC; Weight 77.11 kg; st1 Height 5 ft. 2 in. (157.48 cm); 22:00 BP 152 / 95; Pulse 70; Resp 16; Pulse Ox 100% on 4 lpm NC; al4 23:00 BP 163 / 97; Pulse 81; Resp 22; Pulse Ox 95% on 3 lpm NC; Pain 7/10; al4 01/06 00:00 BP 175 / 83; Pulse 88; Resp 24 S; Pulse Ox 95% on 3 lpm NC; al4 01/05 20:45 Body Mass Index 31.09 (77.11 kg, 157.48 cm) st1 ED Course: 01/05 20:33 Patient arrived in ED. wm 20:36 Melisa Vital MD is Attending Physician. sp3 20:41 Radha Barrera, ROYAL is Primary Nurse. st1 20:43 Triage completed. st1 20:45 Arm band placed on right wrist. st1 21:15 XRAY Chest (1 view) In Process Unspecified. EDMS 21:21 Patient has correct armband on for positive identification. Placed in gown. Bed in low al4 position. Call light in reach. Side rails up X2. 21:21 COVID-19/FLU A+B (Document "Date of Onset" if Symptomatic) Sent. al4 21:28 corn picker on. Pulse ox on. NIBP on. al4 21:36 Lactate Sent. al4 21:37 Inserted saline lock: 20 gauge in left antecubital area, using aseptic technique. st1 21:37 Troponin HS Sent. st1 21:37 Basic Metabolic Panel Sent. st1 21:37 CBC with Diff Sent. st1 21:37 LFT's Sent. st1 21:37 Magnesium Sent. st1 21:37 NT PRO-BNP Sent. st1 21:37 PT-INR Sent. st1 22:33 Evens Hernández MD is Hospitalizing Provider. sp3 23:17 Blood Culture Adult (2) Sent. al4 01/06 00:47 No provider procedures requiring assistance completed. Patient admitted, IV remains in al4 place. 01:26 Inserted saline lock: 22 gauge in right antecubital area, using aseptic technique. st1 Administered Medications: 01/05 21:35 Drug: DuoNeb (albuterol 2.5 mg, ipratropium 0.5 mg) (3:1) (2.5 mg - 0.5 mg) 3 ml Route: al4 Nebulizer; 22:10 Follow up: Response: No adverse reaction al4 23:13 Drug: LevaQUIN (levofloxacin) 500 mg Volume: 100 ml; Route: IVPB; Infused Over: 60 al4 mins; Site: left antecubital; 01/06 00:24 Follow up: Response: No adverse reaction; IV Status: Completed infusion; IV Intake: al4 100ml 01/05 23:24 Drug: oxyCODONE 10 mg {Note: dose and type checked with ROYAL dsouza.} Route: PO; al4 01/06 00:00 Follow up: Response: No adverse reaction; RASS: Alert and Calm (0) al4 01/05 23:24 Drug: Zofran (Ondansetron) 4 mg Route: IVP; Site: left antecubital; al4 01/06 00:00 Follow up: Response: No adverse reaction al4 Intake: 00:24 IV: 100ml; Total: 100ml. al4 Outcome: 01/05 22:34 Decision to Hospitalize by Provider. sp3 01/06 00:47 Admitted to Med/surg room 231, Report called to Kristen, unable to take report - was al4 told she will call me back. Condition: stable Instructed on the need for admit. 01:08 Admitted to Med/surg room 231, Report called to ROYAL Peterson al4 01:48 Patient left the ED. al4 Signatures: Dispatcher [employer] EDMS Adriana Benson Setul, MD MD sp3 Mark Pradhan al4 Radha Barrera RN RN st1 Corrections: (The following items were deleted from the chart) 01/05 20:43 20:41 Acuity: TRACY 3 st1 st1 22:12 22:00 BP 152 / 95; Pulse 70bpm; Resp 16bpm; Pulse Ox 100% 4 lpm Nasal Cannula; al4 al4 22:35 22:28 Reassessment: lab contacted to come draw blood cultures. will give antibiotics al4 after blood cultures are drawn al4 22:49 21:29 Respiratory: Breath sounds with wheezes bilaterally. al4 al4 01/06 00:48 01/05 21:29 Respiratory: Airway is patent Respiratory effort is even, Respiratory al4 pattern is regular, symmetrical, Breath sounds with wheezes al4 01/06 00:49 02 21:29 Respiratory: Respiratory effort is Respiratory pattern is Breath sounds al4 with wheezes bilaterally. al4 01/06 01:44 01/05 22:12 Reassessment: Patient is alert, oriented x 3, equal unlabored respirations, al4 skin warm/dry/pink. warm blanket given.. al4 01/06 01:44 01/05 23:25 Reassessment: Patient is alert, oriented x 3, equal unlabored respirations, al4 skin warm/dry/pink. al4
--- NOTE | 2022-01-05 22:35 | EDPHYS ---
Physician Documentation [facility] Name: Dulce Cerna Age: 66 yrs Sex: Female : 1955 Arrival Date: 01/05/2022 Time: 20:33 Bed 6 Private MD: ED Physician Melisa Vital HPI: 01/05 20:46 This 66 yrs old Female presents to ER via EMS with complaints of Breathing Difficulty. 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 Patient states that she has had a productive cough, malaise, rhinorrhea, subjective wheezing, and finally decided to present to the ED for evaluation. Patient denies headache, neck pain, chest pain, back pain, abdominal pain, nausea, vomiting, diarrhea, neuro symptoms, syncope, near syncope, rash, fever, any other symptoms on ROS at this time.. Historical: - Allergies: 20:43 PENICILLINS; st1 20:43 Sulfa (Sulfonamide Antibiotics); st1 - Home Meds: 20:43 amitriptyline 100 mg Oral tab 1 tab once daily [Active]; aspirin 81 mg Oral TbEC 1 tab st1 once daily [Active]; clonazepam 1 mg Oral tab 1 tab 2 times per day [Active]; duloxetine 60 mg Oral cpDR 2 caps once daily [Active]; estradiol 2 mg Oral tab 1 tab once daily [Active]; fludrocortisone 0.1 mg Oral tab 1 tab once daily for Symptomatic Orthostatic Hypotension [Active]; hydrocortisone 10 mg Oral tab [Active]; levothyroxine 25 mcg tab 1 tab once daily [Active]; oxycodone 10 mg Oral tab 1 tab three times a day [Active]; Sonata 5 mg Oral cap 2 caps once daily [Active]; zaleplon 5 mg Oral cap 1 cap once daily [Active]; - 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 - Social history:: Smoking status: Patient/guardian denies using tobacco, the patient reports quitting approximately 20 years ago. ROS: 21:03 Eyes: Negative for injury, pain, redness, and discharge, ENT: Negative for injury, sp3 pain, and discharge, Neck: Negative for injury, pain, and swelling, Cardiovascular: Negative for chest pain, palpitations, and edema, Abdomen/GI: Negative for abdominal pain, nausea, vomiting, diarrhea, and constipation, Back: Negative for injury and pain, MS/Extremity: Negative for injury and deformity, Skin: Negative for injury, rash, and discoloration, Neuro: Negative for headache, weakness, numbness, tingling, and seizure, Psych: Negative for depression, anxiety, suicide ideation, homicidal ideation, and hallucinations, Allergy/Immunology: Negative for hives, rash, and allergies, Endocrine: Negative for neck swelling, polydipsia, polyuria, polyphagia, and marked weight changes, Hematologic/Lymphatic: Negative for swollen nodes, abnormal bleeding, and unusual bruising. 21:03 All other systems are negative. Exam: 21:03 Constitutional: This is a well developed, well nourished patient who is awake, alert, sp3 and in no acute distress. Head/Face: Normocephalic, atraumatic. Eyes: Pupils equal round and reactive to light, extra-ocular motions intact. Lids and lashes normal. Conjunctiva and sclera are non-icteric and not injected. Cornea within normal limits. Periorbital areas with no swelling, redness, or edema. ENT: Nares patent. No nasal discharge, no septal abnormalities noted. External auditory canals are clear. Oropharynx with no redness, swelling, or masses, exudates, or evidence of obstruction, uvula midline. Mucous membranes moist. Neck: Trachea midline, no thyromegaly or masses palpated, and no cervical lymphadenopathy. Supple, full range of motion without nuchal rigidity, or vertebral point tenderness. No Meningismus. Chest/axilla: Normal chest wall appearance and motion. Nontender with no deformity. No lesions are appreciated. Cardiovascular: Regular rate and rhythm with a normal S1 and S2. No gallops, murmurs, or rubs. Normal PMI, no JVD. No pulse deficits. Abdomen/GI: Soft, non-tender, with normal bowel sounds. No distension or tympany. No guarding or rebound. No evidence of tenderness throughout. Back: No spinal tenderness. No costovertebral tenderness. Full range of motion. Skin: Warm, dry with normal turgor. Normal color with no rashes, no lesions, and no evidence of cellulitis. MS/ Extremity: Pulses equal, no cyanosis. Neurovascular intact. Full, normal range of motion. Neuro: Awake and alert, GCS 15, oriented to person, place, time, and situation. Cranial nerves II-XII grossly intact. Motor strength 5/5 in all extremities. Sensory grossly intact. Cerebellar exam normal. Normal gait. Psych: Awake, alert, with orientation to person, place and time. Behavior, mood, and affect are within normal limits. 21:40 ECG was reviewed by the Attending Physician. EKG demonstrates normal sinus rhythm at 60 sp3 bpm with normal intervals, normal QRS, normal axis, nonspecific ST/T changes inferiorly without evidence of ischemia. Vital Signs: 20:45 BP 120 / 88; Pulse 66; Resp 20; Temp 98.7; Pulse Ox 95% on 2 lpm NC; Weight 77.11 kg; st1 Height 5 ft. 2 in. (157.48 cm); 22:00 BP 152 / 95; Pulse 70; Resp 16; Pulse Ox 100% on 4 lpm NC; al4 23:00 BP 163 / 97; Pulse 81; Resp 22; Pulse Ox 95% on 3 lpm NC; Pain 7/10; al4 01/06 00:00 BP 175 / 83; Pulse 88; Resp 24 S; Pulse Ox 95% on 3 lpm NC; al4 01/05 20:45 Body Mass Index 31.09 (77.11 kg, 157.48 cm) st1 MDM: 01/05 20:36 Patient medically screened. sp3 21:04 Data reviewed: vital signs, nurses notes. ED course: 66-year-old female with upper sp3 respiratory symptoms and hypoxia. Patient's pulse oxygenation on 2 L is 92-93% at this time. Differential diagnosis includes COVID-19, other viral pneumonia, bacterial pneumonia, pulmonary edema, bronchitis, and lower on the list ACS, pulmonary embolism, other pulmonary pathology. I am not highly suspicious for vascular pathology including thoracic aortic aneurysm/dissection, AAA, or any other critical findings at this time. Disposition will likely be admission but will wait till data is retrieved for full treatment plan.. 22:33 ED course: Data reviewed including x-ray which demonstrates bilateral infiltrates. Will sp3 start Levaquin secondary to penicillin allergy. COVID-19 is negative. Patient meets admission criteria secondary to hypoxia on room air. Inpatient team contacted for admission. Blood cultures pending.. 01/05 20:46 Order name: Basic Metabolic Panel; Complete Time: 22:25 3 01/05 20:46 Order name: CBC with Diff; Complete Time: 22:25 3 01/05 20:46 Order name: LFT's; Complete Time: 22:25 3 01/05 20:46 Order name: Magnesium; Complete Time: 22:25 sp3 01/05 20:46 Order name: NT PRO-BNP; Complete Time: 22:25 3 01/05 20:46 Order name: PT-INR; Complete Time: 22:25 3 01/05 20:46 Order name: Troponin HS; Complete Time: 22:25 3 01/05 20:46 Order name: XRAY Chest (1 view); Complete Time: 22:25 3 01/05 20:46 Order name: Lactate; Complete Time: 22: 3 01/05 20:46 Order name: COVID-19/FLU A+B (Document "Date of Onset" if Symptomatic); Complete Time: cs9 22:01/05 22:27 Order name: Blood Culture Adult (2) 3 01/05 22:28 Order name: Blood Culture [facility] 01/05 20:46 Order name: EKG; Complete Time: 20:46 3 01/05 20:46 Order name: Cardiac monitoring; Complete Time: 21:10 3 01/05 20:46 Order name: EKG - Nurse/Tech; Complete Time: 21:26 3 01/05 20:46 Order name: IV Saline Lock; Complete Time: 21:36 3 01/05 20:46 Order name: Labs collected and sent; Complete Time: 21:36 3 01/05 20:46 Order name: O2 Per Protocol; Complete Time: 21: 3 01/05 20:46 Order name: O2 Sat Monitoring; Complete Time: 21:10 sp3 Administered Medications: 21:35 Drug: DuoNeb (albuterol 2.5 mg, ipratropium 0.5 mg) (3:1) (2.5 mg - 0.5 mg) 3 ml Route: al4 Nebulizer; 22:10 Follow up: Response: No adverse reaction al4 23:13 Drug: LevaQUIN (levofloxacin) 500 mg Volume: 100 ml; Route: IVPB; Infused Over: 60 al4 mins; Site: left antecubital; 01/06 00:24 Follow up: Response: No adverse reaction; IV Status: Completed infusion; IV Intake: al4 100ml 01/05 23:24 Drug: oxyCODONE 10 mg {Note: dose and type checked with ROYAL dsouza.} Route: PO; al4 01/06 00:00 Follow up: Response: No adverse reaction; RASS: Alert and Calm (0) al4 01/05 23:24 Drug: Zofran (Ondansetron) 4 mg Route: IVP; Site: left antecubital; al4 01/06 00:00 Follow up: Response: No adverse reaction al4 Disposition Summary: 01/05/22 22:34 Hospitalization Ordered Hospitalization Status: Inpatient Admission sp3 Provider: Evens Hernández sp3 Location: Telemetry/[facility] (Inpatient) sp3 Condition: Stable sp3 Problem: new sp3 Symptoms: are unchanged sp3 Bed/Room Type: Standard sp3 Room Assignment: 231(01/06/22 00:28) mw Diagnosis - Other pneumonia, unspecified organism sp3 Forms: - Medication Reconciliation Form sp3 - SBAR form sp3 Signatures: Dispatcher [employer] Brenda Nuno RN RN Melisa Huerta MD MD sp3 Mark Pradhan al4 Radha Barrera RN RN st1 Corrections: (The following items were deleted from the chart) 00:28 01/05 22:34 sp3 mw
[2022-01-05] MEDS ORDERED: Levofloxacin500mg IV 500 MG/100 ML BAG IV ONE (22:59)
[2022-01-05] MEDS ORDERED: OXYCODONE HCL 5 MG TAB ONE (23:18)
[2022-01-05] MEDS ORDERED: ONDANSETRON 4 MG/2 ML VIAL ONE (23:18)
[2022-01-05 23:54] VITALS: BMI 31.1
[2022-01-06] MEDS ORDERED: ACETAMINOPHEN 500 MG TAB PO PRN (01:33)
[2022-01-06] MEDS ORDERED: ONDANSETRON 4 MG/2 ML VIAL IV PRN (01:33)
[2022-01-06] MEDS ORDERED: ALBUTEROL 2.5 MG/3 ML NEB SOL NEB PRN ×2 (01:33→16:00)
--- NOTE | 2022-01-06 01:43 | P.HP ---
Certification for Inpatient Patient admitted to: Inpatient With expected LOS: <2 Midnights Patient will require the following post-hospital care: None Practitioner: I am a practitioner with admitting privileges, knowledge of patient current condition, hospital course, and medical plan of care. Services: Services provided to patient in accordance with Admission requirements found in Title 42 Section 412.3 of the Code of Federal Regulations Patient History Date of Service: 01/05/22 Reason for admission: hypoxia, pneumonia History of Present Illness: Ms. 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 She was hypoxic upon arrival, and her O2 sats improved on 2L. She reports cough, malaise, weakness, rhinorrhea, wheezing. She also report dizziness as well. WBC 12.9 CXR IMPRESSION: Increased bibasilar interstitial pattern all or mostly due to shallow inspiration. Lung base interstitial edema or infiltrate cannot be excluded. Allergies Penicillins Allergy (Verified 03/16/19 23:40) Shortness of breath Sulfa (Sulfonamide Antibiotics) [Sulfa(Sulfonamide Antibiotics)] Allergy (Verified 03/16/19 23:40) Shortness of breath NSAIDS Adverse Reaction (Uncoded 03/16/19 23:40) Kidney Problems Home Medications: Aspirin Chewable [Aspirin Chewable*] 81 mg PO DAILY 08/27/20 Duloxetine HCl 120 mg PO DAILY 08/27/20 Estradiol 2 mg PO DAILY 08/27/20 Fludrocortisone [Florinef *] 0.2 mg PO DAILY 08/27/20 Hydrocortisone [Cortef*] 20 mg PO BID 08/27/20 Levothyroxine Sodium 25 mcg PO DAILY 08/27/20 Oxycodone HCl [Oxycontin] 10 mg PO TID 08/27/20 Rosuvastatin Calcium 10 mg PO DAILY 08/27/20 Zaleplon 10 mg PO BEDTIME 08/27/20 clonazePAM [Klonopin*] 1 mg PO BIDP PRN 08/27/20 ARIPiprazole [Aripiprazole] 2 mg PO BEDTIME 06/05/21 Amitriptyline [Elavil*] 50 mg PO BEDTIME 06/05/21 Melatonin 10 mg PO BEDTIME 06/05/21 Ciprofloxacin HCl [Cipro 500 MG Tablet] 500 mg PO BID #20 tab 06/06/21 Potassium Chloride 20 meq PO DAILY #7 tablet.er 06/06/21 metroNIDAZOLE [Flagyl] 500 mg PO Q8H #30 tablet 06/06/21 Calcium Carbonate [Calcium] 500 mg PO TID #90 tablet 06/09/21 Magnesium Citrate [Citroma*] 300 ml PO 1X PRN #1 btl 06/09/21 Metoprolol Tartrate [Lopressor*] 50 mg PO BID #60 tab 06/09/21 Senosides [Senokot*] 17.2 mg PO BID #120 tab 06/09/21 - Past Medical/Surgical History Diabetic: No -: Bruce's -: Irritable Bowel Syndrome -: TIA -: Chronic back pain -: hyperlipidemia -: CVA -: hypothyroidism -: Cholecystectomy -: Appendectomy -: -: Hysterectomy -: Exploratory laparotomy - Family History Mother -: Stroke, Other (see notes) Notes: Asthma. Rheumatoid Arthritis - Social History Smoking Status: Never smoker Alcohol use: No CD- Drugs: No Caffeine use: No Place of Residence: Home Review of Systems 10-point ROS is otherwise unremarkable General: Weakness, Malaise Eyes: Unremarkable ENT: Unremarkable Respiratory: Cough, Shortness of Breath, Wheezing Cardiovascular: Unremarkable Gastrointestinal: Abdominal Pain Genitourinary: Unremarkable Musculoskeletal: Unremarkable Integumentary: Unremarkable Neurological: Unremarkable Lymphatics: Unremarkable Physical Examination - Physical Exam General: Alert, Oriented x3 HEENT: Atraumatic, PERRLA, Mucous membr. moist/pink, EOMI, Sclerae nonicteric Neck: Supple, 2+ carotid pulse no bruit, No LAD, Without JVD or thyroid abnormality Respiratory: Diminished Cardiovascular: No edema, Regular rate/rhythm, Normal S1 S2 Gastrointestinal: Normal bowel sounds, Soft and benign, Non-distended, No tenderness Musculoskeletal: No tenderness Integumentary: No rashes Neurological: Normal tone, Normal affect, Abnormal speech, Abnormal strength Lymphatics: No axilla or inguinal lymphadenopathy - Studies Laboratory Data (last 24 hrs) 01/05/22 21:30: PT 11.6, INR 1.01 01/05/22 21:30: WBC 12.90 H, Hgb 10.7 L, Hct 34.3 L, Plt Count 292 01/05/22 21:30: Sodium 138, Potassium 3.9, BUN 14, Creatinine 0.96, Glucose 120 H, Magnesium 2.0, Total Bilirubin 0.2, AST 21, ALT 29, Alkaline Phosphatase 105 Assessment and Plan - Problems (Diagnosis) (1) Abdominal pain Current Visit: No Status: Acute Qualifiers: Abdominal location: unspecified location Qualified Code(s): R10.9 - Unspecified abdominal pain (2) Generalized weakness Current Visit: No Status: Acute (3) H/O: CVA (cerebrovascular accident) Current Visit: No Status: Chronic (4) HTN (hypertension) Current Visit: No Status: Chronic Qualifiers: Hypertension type: primary hypertension Qualified Code(s): I10 - Essential (primary) hypertension (5) Hyperlipidemia Current Visit: No Status: Chronic Qualifiers: Hyperlipidemia type: unspecified Qualified Code(s): E78.5 - Hyperlipidemia, unspecified (6) Pneumonia Onset Date: 03/01/18 Current Visit: No Status: Acute Qualifiers: Pneumonia type: due to unspecified organism Laterality: unspecified laterality Lung location: unspecified part of lung Qualified Code(s): J18.9 - Pneumonia, unspecified organism (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 Current Visit: No Status: Chronic (8) Chronic pain Onset Date: 11/01/18 Current Visit: No Status: Chronic Qualifiers: Chronic pain type: chronic pain syndrome Qualified Code(s): G89.4 - Chronic pain syndrome (9) Irritable bowel disease Onset Date: 04/08/18 Current Visit: No Status: Chronic Qualifiers: Irritable bowel syndrome type: unspecified Qualified Code(s): K58.9 - Irritable bowel syndrome without diarrhea - Plan continue IV antibiotics continue breathing treatments, O2 as needed continue stress dose of steroids reconcile and continue home medications CT Chest Abdomen Pelvis pending Discharge Plan: Home Plan to discharge in: 48 Hours - Advance Directives Does patient have a Living Will: No Does patient have a Durable POA for Healthcare: No - Code Status/Comfort Care Code Status Assessed: Yes (full code ) Critical Care: No Time Spent Managing Pts Care (In Minutes): 70
[2022-01-06 02:06] LABS: Arterial Blood Carboxyhemoglob 1.3 % (0-1.5); Blood Gas Oxyhemoglobin 89.9 % (94-97); Blood O2 Saturation 92.2 % (92-98.5)
[2022-01-06] MEDS: HYDROCORTISONE 10 MG TAB PO SCH ×3 (02:59→22:25)
[2022-01-06] MEDS ORDERED: IPRATROPIUM BROM 0.5MG/2.5ML NEB PRN (03:00)
[2022-01-06] MEDS: MORPHINE 2 MG/ML SYR IV PRN ×2 (03:00→08:48)
--- NOTE | 2022-01-06 06:33 | P.PN ---
Date of Service: 01/06/22 Subjective: No significant change since admission last night Continues on oxygen supplementation ROS: 10 point ROS as noted above, otherwise negative Physical exam GEN: Alert, oriented HEENT: Normal conjunctiva, sclera anicteric CV: Regular rate and rhythm, no edema Pulm: Mild labored respirations on 3 L nasal cannula, tachypneic ABD: Soft, nontender, nondistended Integumentary: No rashes Neuro: Normal speech, normal affect Problem List Acute hypoxemic respiratory failure secondary to pneumonia Abdominal pain Generalized weakness HTN HLD [place]'s disease Chronic pain Irritable bowel syndrome h/o CVA Continue IV antibiotics, empiric treatment for community-acquired pneumonia Checks x-ray with some concern, procalcitonin elevated Pulmonology consulted Continue stress dose steroids, patient with history of [place]'s disease Confirm home medications, restart as appropriate Monitor blood glucose levels Wean oxygen as tolerated CT pending for today Code: Full Dispo: Anticipate DC home in 1-2 days Time Spent Managing Pts Care (In Minutes): 35
[2022-01-06 07:19] LABS: Absolute Lymphocytes (CBC) 0.9 K/uL (0.7-4.9); Hematocrit 35.2 % (36.0-45.0); Lymphocytes % 5.6 % (15.3-44.8); MPV 9.4 fL (7.6-11.3); RBC Red Blood Cell Count 4.23 M/uL (3.86-4.86)
[2022-01-06 07:30] LABS: Albumin 2.8 g/dL (3.4-5.0); Bilirubin Total 0.5 mg/dL (0.2-1.0); Magnesium 1.7 mg/dL (1.8-2.4); Phosphorus 2.8 mg/dL (2.5-4.9); Potassium 3.9 mmol/L (3.5-5.1); Protein, Total 6.6 g/dL (6.4-8.2)
[2022-01-06 07:48] LABS: Blood Morphology Comment NOT SEEN (NOT SEEN); Platelet Estimate DECR; White Blood Cell Scan OK (OK)
--- NOTE | 2022-01-06 08:11 | RAD REPORT ---
EXAM DESCRIPTION: CTAbdomen Pelvis W Contrast - 01/06/2022 7:59 am CLINICAL HISTORY: shortness of breath, abd pain COMPARISON: Abdomen Pelvis W Contrast dated 05/05/2021; Abdomen Pelvis W Contrast dated 08/27/2020 ; Abdomen Pelvis W Contrast dated 08/02/2019; Abdomen Pelvis W Contrast dated 03/16/2019; Chest Sin gle View dated 01/05/2022 TECHNIQUE: CT of the abdomen and pelvis was performed. All CT scans are performed using dose optimization technique as appropriate and may include automated exposure control or mA/KV adjustment according to patient size. FINDINGS: Lower chest: Irregular nodularity in the lower lungs bilaterally, right greater the left. Liver: Small intrahepatic biliary duct dilatation. No suspicious liver lesions. Biliary: Cholecystectomy. Stomach: No significant focal abnormality. Duodenum: No significant focal abnormality. Pancreas: No significant abnormality. Spleen: No significant abnormality. Adrenal: No suspicious lesions. Kidney/ureter: No hydronephrosis. Staghorn calculus in the right upper pole measuring 18 millimeters. Too small to characterize and/or benign appearing renal lesions are noted. Retroperitoneum: No retroperitoneal adenopathy. Vascular: Atherosclerosis without aneurysm. Bowel: Large stool burden in the ascending and transverse colon. No appendicitis.. Peritoneum: No ascites or free air. Bladder: Grossly unremarkable. Reproductive: No adnexal masses. Bones: No acute fracture. Other: n/a IMPRESSION: Large stool burden in the ascending transverse colon suggesting constipation. No bowel o bstruction. Similar staghorn calculus in the right upper pole. No hydronephrosis. Basilar airspace disease concerning for pneumonia/pneumonitis.
--- NOTE | 2022-01-06 08:13 | RAD REPORT ---
EXAM DESCRIPTION: CT - Chest For Pe Angio - 01/06/2022 7:59 am CLINICAL HISTORY: shortness of breath COMPARISON: Thorax W/ Con dated 06/26/2020; Thorax Wo Con dated 05/24/2020; Thorax Wo Con dated 9; Abdomen Pelvis W Contrast dated 01/06/2022 FINDINGS: Chest Wall: No suspicious thyroid nodules or pathologic lymphadenopathy. Lungs: Irregular nodularity and ground-glass opacities bilaterally. The nodularity is predominantly i n the lower lungs, right greater than left. The ground-glass opacities are primarily in the upper lob es. Pleura: No significant effusions or pneumothorax. Mediastinum/yen: No pathologic lymphadenopathy. Pulmonary arteries/Aorta: No filling defect identified. No aortic aneurysm. Heart: No significant pericardial effusion. Normal heart size. Upper abdomen: Reference same-day CT of the abdomen and pelvis. Bones: No acute abnormality. All CT scans are performed using dose optimization technique as appropriate and may include automated exposure control or mA/KV adjustment according to patient size. IMPRESSION: Negative for pulmonary embolism. Multifocal airspace disease concerning for pneumonia, i ncluding Covid-19.
[2022-01-06] MEDS: ENOXAPARIN 40 MG/0.4 ML SQ SCH (08:48)
--- NOTE | 2022-01-06 11:59 | P.CNS ---
Date of Consult: 01/06/22 Reason for Consult: Pneumonia Chief Complaint: hypoxia, pneumonia History of Present Illness: Patient is 66 years of age has been sick for about 10 days complaining of cough shortness of breath admitted with right lower lobe pneumonia is doing a little better Allergies Penicillins Allergy (Verified 03/16/19 23:40) Shortness of breath Sulfa (Sulfonamide Antibiotics) [Sulfa(Sulfonamide Antibiotics)] Allergy (Verified 03/16/19 23:40) Shortness of breath NSAIDS Adverse Reaction (Uncoded 03/16/19 23:40) Kidney Problems Home Medications: Aspirin Chewable [Aspirin Chewable*] 81 mg PO DAILY 08/27/20 Duloxetine HCl 120 mg PO DAILY 08/27/20 Estradiol 2 mg PO DAILY 08/27/20 Fludrocortisone [Florinef *] 0.2 mg PO DAILY 08/27/20 Hydrocortisone [Cortef*] 20 mg PO BID 08/27/20 Levothyroxine Sodium 25 mcg PO DAILY 08/27/20 Oxycodone HCl [Oxycontin] 10 mg PO TID 08/27/20 Rosuvastatin Calcium 10 mg PO DAILY 08/27/20 Zaleplon 10 mg PO BEDTIME 08/27/20 clonazePAM [Klonopin*] 1 mg PO BIDP PRN 08/27/20 ARIPiprazole [Aripiprazole] 2 mg PO BEDTIME 06/05/21 Amitriptyline [Elavil*] 50 mg PO BEDTIME 06/05/21 Melatonin 10 mg PO BEDTIME 06/05/21 Ciprofloxacin HCl [Cipro 500 MG Tablet] 500 mg PO BID #20 tab 06/06/21 Potassium Chloride 20 meq PO DAILY #7 tablet.er 06/06/21 metroNIDAZOLE [Flagyl] 500 mg PO Q8H #30 tablet 06/06/21 Calcium Carbonate [Calcium] 500 mg PO TID #90 tablet 06/09/21 Magnesium Citrate [Citroma*] 300 ml PO 1X PRN #1 btl 06/09/21 Metoprolol Tartrate [Lopressor*] 50 mg PO BID #60 tab 06/09/21 Senosides [Senokot*] 17.2 mg PO BID #120 tab 06/09/21 - Past Medical/Surgical History Diabetic: No -: [place]'s -: Irritable Bowel Syndrome -: TIA -: Chronic back pain -: hyperlipidemia -: CVA -: hypothyroidism -: Cholecystectomy -: Appendectomy -: -: Hysterectomy -: Exploratory laparotomy - Family History Mother Medical History: Stroke, Other (see notes) Notes: Asthma. Rheumatoid Arthritis - Social History Smoking Status: Unknown if ever smoked Alcohol use: No CD- Drugs: No Caffeine use: No Place of Residence: Home Review of Systems General: Weakness Respiratory: Cough, Shortness of Breath Physical Examination Temp Pulse Resp BP Pulse Ox 97.4 F 68 18 135/63 94 01/06/22 08:00 01/06/22 08:00 01/06/22 09:18 01/06/22 08:00 01/06/22 09:18 General: Alert Respiratory: Crackles/rales Cardiovascular: No edema (Right base), Regular rate/rhythm Gastrointestinal: Normal bowel sounds, Soft and benign Laboratory Data (last 24 hrs) 01/05/22 21:30: PT 11.6, INR 1.01 01/05/22 21:30: WBC 12.90 H, Hgb 10.7 L, Hct 34.3 L, Plt Count 292 01/05/22 21:30: Sodium 138, Potassium 3.9, BUN 14, Creatinine 0.96, Glucose 120 H, Magnesium 2.0, Total Bilirubin 0.2, AST 21, ALT 29, Alkaline Phosphatase 105 - Problems (1) Pneumonia Onset Date: 03/01/18 Current Visit: No Status: Acute Plan: Patient is 66 years of age admitted with right lower lobe pneumonia currently doing better she has been sick for about 10 days change to p.o. levofloxacin start a regular diet labs reviewed patient quit smoking over 20 years ago check daily room air pulse ox possible discharge tomorrow on levofloxacin patient is negative for coronavirus Qualifiers: Pneumonia type: due to unspecified organism Laterality: unspecified laterality Lung location: unspecified part of lung Qualified Code(s): J18.9 - Pneumonia, unspecified organism
[2022-01-06] MEDS ORDERED: OXYCODONE HCL 5 MG TAB PO PRN (17:43)
[2022-01-06] MEDS: FLUDROCORTISONE 0.1 MG TAB PO SCH (18:26)
[2022-01-06] MEDS ORDERED: AMITRIPTYLINE 50 MG TAB PO SCH (21:00)
[2022-01-06] MEDS ORDERED: ARIPIPRAZOLE 2 MG PO SCH (21:00)
[2022-01-06] MEDS: clonazePAM 1 MG TAB PO PRN (22:25)
[2022-01-06] MEDS: METOPROLOL TAR 50 MG TAB PO SCH (22:25)
[2022-01-07] MEDS: BENZONATATE 100 MG CAP PO PRN ×2 (00:38→09:21)
[2022-01-07] MEDS ORDERED: LEVOTHYROXINE SOD 0.025 MG TAB PO SCH (06:30)
[2022-01-07 06:37] LABS: Absolute Lymphocytes (CBC) 0.8 K/uL (0.7-4.9); Hematocrit 27.9 % (36.0-45.0); Lymphocytes % 6.9 % (15.3-44.8); MPV 8.4 fL (7.6-11.3); RBC Red Blood Cell Count 3.39 M/uL (3.86-4.86)
--- NOTE | 2022-01-07 06:39 | P.PN ---
Date of Service: 01/07/22 Subjective: ROS: 10 point ROS as noted above, otherwise negative Physical exam GEN: Alert, oriented HEENT: Normal conjunctiva, sclera anicteric CV: Regular rate and rhythm, no edema Pulm: Mild labored respirations on 3 L nasal cannula, tachypneic ABD: Soft, nontender, nondistended Integumentary: No rashes Neuro: Normal speech, normal affect Problem List Acute hypoxemic respiratory failure secondary to pneumonia Abdominal pain Generalized weakness HTN HLD [place]'s disease Chronic pain Irritable bowel syndrome h/o CVA Continue IV antibiotics, empiric treatment for community-acquired pneumonia Checks x-ray with some concern, procalcitonin elevated Pulmonology consulted Continue stress dose steroids, patient with history of [place]'s disease Confirm home medications, restart as appropriate Monitor blood glucose levels Wean oxygen as tolerated CT pending for today Code: Full Dispo: Anticipate DC home in 1-2 days Time Spent Managing Pts Care (In Minutes): 35
[2022-01-07 06:42] LABS: BUN Blood Urea Nitrogen 10 mg/dL (7-18); Bicarbonate 32 mmol/L (21-32); Glucose Level 119 mg/dL (74-106); Magnesium 2.2 mg/dL (1.8-2.4); Potassium 3.3 mmol/L (3.5-5.1); Sodium Level 140 mmol/L (136-145)
[2022-01-07] MEDS ORDERED: POTASSIUM CL SA 10 MEQ TAB PO ONE (08:00)
[2022-01-07 08:56] VITALS: O2SAT 93
[2022-01-07] MEDS ORDERED: ASPIRIN 81 MG CHEWABLE TABLET PO SCH (09:00)
[2022-01-07] MEDS ORDERED: levoFLOXacin 750 MG TAB PO SCH (09:00)
[2022-01-07] MEDS ORDERED: Levofloxacin 750mg IV 750 MG/150 ML BAG IV SCH (09:00)
[2022-01-07] MEDS ORDERED: DULOXETINE 30 MG CAP PO SCH (09:00)
[2022-01-07] MEDS ORDERED: HOME MED 1 EA UNK (Duloxetine Hcl [Duloxetine Hcl] 60 MG Capsule.Dr) PO SCH (09:00)
[2022-01-07] MEDS: ENOXAPARIN 40 MG/0.4 ML SQ SCH (09:20)
[2022-01-07] MEDS: METOPROLOL TAR 50 MG TAB PO SCH (09:21)
[2022-01-07] MEDS: FLUDROCORTISONE 0.1 MG TAB PO SCH (09:22)
[2022-01-07] MEDS: HYDROCORTISONE 10 MG TAB PO SCH (09:22)
[2022-01-07] MEDS: clonazePAM 1 MG TAB PO PRN (09:22)
[2022-01-07 14:02] VITALS: BP 145/64; TEMP 98.8
--- NOTE | 2022-01-07 18:44 | P.DS ---
Admission Date: 01/05/22 Discharge Date: 01/07/22 Disposition: ROUTINE DISCHARGE Discharge Condition: GOOD Reason for Admission: hypoxia, pneumonia Consultations: PulmonologyDr. Son Brief History of Present Illness: 66 yo with [place]'s, HLD, hypothyroidism, IBS, history of CVA who presents with 6 days of upper respiratory symptoms and shortness of breath. She was hypoxic upon arrival, and her O2 sats improved on 2L. She reports cough, malaise, weakness, rhinorrhea, wheezing. She also report dizziness as well. WBC 12.9 CXR IMPRESSION: Increased bibasilar interstitial pattern all or mostly due to shallow inspiration. Lung base interstitial edema or infiltrate cannot be excluded. Problem List Acute hypoxemic respiratory failure secondary to pneumonia Generalized weakness HTN HLD [place]'s disease Chronic pain Irritable bowel syndrome h/o CVA Hospital Course: Patient was found to have pneumonia. Improved with antibiotics. Pulmonology was consulted. Patient's oxygen supplementation was weaned off and she was breathing more comfortably on room air. Deemed stable for discharge home. Pulmonology recommended continuation of levaquin on discharge. Follow up with PCP within 1 week Follow up with pulmonology in ~1 week. Recommend taking 20mg twice a day of Hydrocortisone for the next 3 days, then resume usual 30mg /day Vital Signs/Physical Exam: Physical exam GEN: Alert, oriented HEENT: Normal conjunctiva, sclera anicteric CV: Regular rate and rhythm, no edema Pulm: Nonlabored respirations on room air, slight diminished at bases bilaterally ABD: Soft, nontender, nondistended Neuro: Normal speech, normal affect Temp Pulse Resp BP Pulse Ox 98.8 F 66 18 145/64 H 98 01/07/22 12:00 01/07/22 12:00 01/07/22 12:00 01/07/22 12:00 01/07/22 12:00 Laboratory Data at Discharge: WBC 12.10 K/uL (4.3-10.9) H D 01/07/22 06:16 Hgb 8.8 g/dL (12.0-15.0) L 01/07/22 06:16 Hct 27.9 % (36.0-45.0) L D 01/07/22 06:16 Plt Count 223 K/uL (152-406) D 01/07/22 06:16 PT 11.6 SECONDS (9.5-12.5) 01/05/22 21:30 INR 1.01 01/05/22 21:30 Sodium Cancelled 01/07/22 14:00 Potassium Cancelled 01/07/22 14:00 Potassium Cancelled 01/07/22 14:00 BUN Cancelled 01/07/22 14:00 Creatinine Cancelled 01/07/22 14:00 Glucose Cancelled 01/07/22 14:00 Phosphorus 2.8 mg/dL (2.5-4.9) 01/06/22 07:05 Magnesium 2.2 mg/dL (1.8-2.4) D 01/07/22 06:16 Total Bilirubin 0.5 mg/dL (0.2-1.0) 01/06/22 07:05 AST 87 U/L (15-37) H 01/06/22 07:05 ALT 55 U/L (12-78) 01/06/22 07:05 Alkaline Phosphatase 121 U/L (45-117) H 01/06/22 07:05 Home Medications: Aspirin Chewable [Aspirin Chewable*] 81 mg PO DAILY 08/27/20 Duloxetine HCl 120 mg PO DAILY 08/27/20 Estradiol 2 mg PO DAILY 08/27/20 Hydrocortisone [Cortef*] 20 mg PO BID 08/27/20 Levothyroxine Sodium 25 mcg PO DAILY 08/27/20 Oxycodone HCl [Oxycontin] 10 mg PO TID 08/27/20 Rosuvastatin Calcium 10 mg PO DAILY 08/27/20 Zaleplon 10 mg PO BEDTIME 08/27/20 clonazePAM [Klonopin*] 1 mg PO BIDP PRN 08/27/20 ARIPiprazole [Aripiprazole] 2 mg PO BEDTIME 06/05/21 Amitriptyline [Elavil*] 50 mg PO BEDTIME 06/05/21 Melatonin 10 mg PO BEDTIME 06/05/21 Potassium Chloride 20 meq PO DAILY #7 tablet.er 06/06/21 Calcium Carbonate [Calcium] 500 mg PO TID #90 tablet 06/09/21 Magnesium Citrate [Citroma*] 300 ml PO 1X PRN #1 btl 06/09/21 Metoprolol Tartrate [Lopressor*] 50 mg PO BID #60 tab 06/09/21 Senosides [Senokot*] 17.2 mg PO BID #120 tab 06/09/21 Benzonatate [Tessalon Perle*] 100 mg PO TID PRN 5 Days #15 cap 01/07/22 levoFLOXacin [Levaquin*] 750 mg PO DAILY 7 Days #7 tab 01/07/22 New Medications: levoFLOXacin [Levaquin*] 750 mg PO DAILY 7 Days #7 tab Benzonatate [Tessalon Perle*] 100 mg PO TID PRN 5 Days #15 cap PRN Reason: Cough Physician Discharge Instructions: Patient was found to have pneumonia. Improved with antibiotics. Pulmonology was consulted. Patient's oxygen supplementation was weaned off and she was breathing more comfortably on room air. Deemed stable for discharge home. Pulmonology recommended continuation of levaquin on discharge. Follow up with PCP within 1 week Follow up with pulmonology in ~1 week. Recommend taking 20mg twice a day of Hydrocortisone for the next 3 days, then resume usual 30mg /day Followup: Siddhartha Son MD [ACTIVE - CAN ADMIT] - Brayan Valladares MD [Primary Care Provider] - Time spent managing pt's care (in minutes): 45
== END 2022-01-07 03:15 | disposition home or self-care (01) | DRG 193 ==
LOC: ER 20:31 → ERHOLD 23:16 → 2ND 01-06 01:14
PROVIDERS: ADMIT Hospitalist; ATTEND Hospitalist
DX: J18.9 Pneumonia, unspecified organism (principal); J96.01 Acute respiratory failure with hypoxia; E27.1 Primary adrenocortical insufficiency; I10 Essential (primary) hypertension; E78.5 Hyperlipidemia, unspecified; G89.29 Other chronic pain; K58.9 Irritable bowel syndrome, unspecified; E03.9 Hypothyroidism, unspecified; Z86.73 Personal history of transient ischemic attack (TIA), and cerebral infarction without residual deficits; Z20.822 Contact with and (suspected) exposure to COVID-19; Z88.0 Allergy status to penicillin; Z88.2 Allergy status to sulfonamides
CPT/HCPCS: 0240U; 36415; 71045; 71275; 74177; 80048; 80053; 80076; 82805; 83605; 83735; 83880; 84100; 84145; 84484; 85025; 85610; 87040; 93005; 94640; 94760; 96365; 96375; 99285; J1650; J2270; J2405; Q9967

== ENCOUNTER 2022-04-01 12:49 | Observation (INO) | payer OTHER ==
--- OUTSIDE RECORDS SUMMARY | 2022-04-01 12:53 | XMS REPORT | Continuity of Care Document ---
:1955 Author Organization [facility] t Address [address] [place] [address] Care Team Providers Name Role Phone YANELIS Primary Care Physician Unavailable TANMAY, Sarai Attending Clinician Unavailable Tanmay TREADWELL S Attending Clinician Doctor Unassigned, Name Attending Clinician Unavailable Angel MANUEL Attending Clinician Payers Payer Name Policy Type Policy Number Effective Date Expiration Date S sophie [facility] MEDIC[facility] [id number] 2021 2024 ADVANTAGE 00:00:00 00:00:00 [employer] [id number] 2020 MCARE ADV CHOICE 00:00:00 PPO Problems Condition Condition Condition Status Onset Resolution Last Treating Co mments Source Name Details Category Date Date Treatment Clinician Date 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 00:00: 00 Chest pain Chest pain Disease Active N PI:183 2-19 [id number] 00:00: 00 Obesity Obesity Disease Active NPI:183 (BMI (BMI 2-19 6658954 30-39.9) 30-39.9) 00:00: 00 Elevated Elevated Disease Active NPI:1 83 alkaline alkaline 7-18 100970 1 phosphatas phosphatas 00:00: e level e level 00 Abnormal Abnormal Disease Active NPI:1 83 thyroid thyroid 06-09 [id number] blood test blood test 00:00: 00 Bruce Bruce Disease Active NPI:183 disease disease 06-09 [id number] 00:00: 00 Allergies, Adverse Reactions, Alerts Allergy Allergy Status Severity Reaction(s) Onset Inactive Treating Comm ents Source Name Type Date Date Clinician Penicill Propensi Active Anaphylaxis 2006-11 N PI:183 ins ty to 0-30 [id number] adverse 00:00: reaction 00 s Sulfa Propensi Active Anaphylaxis 2006-11 NPI :183 (Sulfona ty to 0-30 [id number] mide adverse 00:00: Antibiot reaction 00 ics) s PENICILL Drug Active Anaphylaxis 2006-11 NPI :183 INS Class 0-30 [id number] 00:00: 00 SULFA Drug Active Anaphylaxis 2006-11 NPI:1 83 (SULFONA Class 0-30 [id number] MIDE 00:00: ANTIBIOT 00 ICS) Social History Social Habit Start Date Stop Date Quantity Comments Source Exposure to 2022-03-15 2022-03-25 Not sure NPI:[id number] SARS-CoV-2 00:00:00 10:33:00 (event) Alcohol intake 2021-11-22 2021-11-22 Lifetime NPI:[id number] 00:00:00 00:00:00 non-drinker (finding) Tobacco use and 2017-06-09 2017-06-09 Never used NPI:[id number] exposure 00:00:00 00:00:00 [birth year] NPI:[id number] 00:00:00 00:00:00 Smoking Status Start Date Stop Date Source Former smoker 2017-06-09 00:00:00 2017-06-09 00:00:00 NPI:[id number] Medications Ordered Filled Start Stop Current Ordering Indication Dosage Frequency Signature Comments Components Source Medication Medication Date Date Medication? Clinician (SIG) Name Name rosuvastati 2020-11 Yes 10mg Take 10 mg NPI:183 n 10 mg 2-31 by mouth [id number] tablet 10:28: at 48 bedtime. rosuvastati 2020-11 Yes 10mg Take 10 mg NPI:183 n 10 mg 2-31 by mouth [id number] tablet 10:28: at 48 bedtime. rosuvastati 2020-11 Yes 10mg Take 10 mg NPI:183 n 10 mg 2-31 by mouth [id number] tablet 10:28: at 48 bedtime. rosuvastati 2020-11 Yes 10mg Take 10 mg NPI:183 n 10 mg 2-31 by mouth [id number] tablet 10:28: at 48 bedtime. 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 [id number] 81 10:28: 00 melatonin 2020-11 Yes 10mg Take 10 mg SUPERVIS[employer] TYPE [employer]OTOGR[employer] I:183 10 mg Tab 2-31 by mouth. [id number] 81 10:28: 00 melatonin 2020-11 Yes 10mg Take 10 mg SUPERVISOR TYPE [employer]OTOGR[employer] I:183 10 mg Tab 2-31 by mouth. [id number] 81 10:28: 00 melatonin 2020-11 Yes 10mg Take 10 mg SUPERVISOR TYPE [employer]OTOGR[employer]HY I:183 10 mg Tab 2-31 by mouth. [id number] 81 10:28: 00 DULoxetine 2020-11 Yes 60mg Take 60 mg N PI:183 60 mg 2-31 by mouth [id number] capsule 10:27: daily. 59 estradiol 2 2020-11 Yes 2mg Take 2 mg N PI:183 mg tablet 2-31 by mouth [id number] 1 10:27: daily. 59 DULoxetine 2020-11 Yes 60mg Take 60 mg N PI:183 60 mg 2-31 by mouth 4420000 capsule 10:27: daily. 59 estradiol 2 2020-11 Yes 2mg Take 2 mg N PI:183 mg tablet 2-31 by mouth [id number] 1 10:27: daily. 59 DULoxetine 2020-11 Yes 60mg Take 60 mg N PI:183 60 mg 2-31 by mouth [id number] capsule 10:27: daily. 59 estradiol 2 2020-11 Yes 2mg Take 2 mg N PI:183 mg tablet 2-31 by mouth [id number] 1 10:27: daily. 59 DULoxetine 2020-11 Yes 60mg Take 60 mg N PI:183 60 mg 2-31 by mouth [id number] capsule 10:27: daily. 59 estradiol 2 2020-11 Yes 2mg Take 2 mg N PI:183 mg tablet 2-31 by mouth [id number] 1 10:27: daily. 59 BABY 2020- Yes 81mg Take 81 mg NPI:183 ASPIRIN 2-31 by mouth. [id number] ORAL 10:27: 58 clonazePAM 2020- Yes 2mg Take 2 mg SUPERVIS[employer] TYPE [employer] I:183 2 mg tablet 2-31 by mouth 3 13 56254 10:27: (three) 58 times daily. BABY 2020- Yes 81mg Take 81 mg NPI:183 ASPIRIN 2-31 by mouth. [id number] ORAL 10:27: 58 clonazePAM 2020- Yes 2mg Take 2 mg SUPERVIS[employer] TYPE [employer] I:183 2 mg tablet 2-31 by mouth 3 13 97069 10:27: (three) 58 times daily. BABY 2020-11 Yes 81mg Take 81 mg NPI:183 ASPIRIN 2-31 by mouth. [id number] ORAL 10:27: 58 clonazePAM 2020-11 Yes 2mg Take 2 mg SUPERVISOR TYPE [employer]OTOGR[employer]HY I:183 2 mg tablet 2-31 by mouth 3 13 67158 10:27: (three) 58 times daily. BABY 2020- Yes 81mg Take 81 mg NPI:183 ASPIRIN 2-31 by mouth. 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 metoprolol 2020-11 Yes 37.5mg Take 37.5 NPI:183 tartrate 2-31 mg by [id number] 37.5 mg Tab 00:00: mouth 00 daily. hydrocortis 2020-11 Yes [id number] TAKE TWO NPI:183 one 10 mg 2-31 TABLETS BY 1318 781 tablet 00:00: MOUTH IN 00 THE MORNING AND ONE TABLET AT 2:00PM, take extra on sick days levothyroxi 2020-11 Yes [id number] 25ug Take 1 NPI:183 ne 25 mcg 2-[place] [id number] 81 tablet 00:00: mouth 00 every morning. metoprolol 2020-11 Yes 37.5mg Take 37.5 NPI:183 tartrate 2-31 mg by [id number] 37.5 mg Tab 00:00: mouth 00 daily. hydrocortis 2020-11 Yes [id number] TAKE TWO NPI:183 one 10 mg 2-31 TABLETS BY 1318 781 tablet 00:00: MOUTH IN 00 THE MORNING AND ONE TABLET AT 2:00PM, take extra on sick days levothyroxi 2020-11 Yes [id number] 25ug Take 1 NPI:183 ne 25 mcg 2-[place] [id number] 81 tablet 00:00: mouth 00 every morning. metoprolol 2020-11 Yes 37.5mg Take 37.5 NPI:183 tartrate 2-31 mg by [id number] 37.5 mg Tab 00:00: mouth 00 daily. hydrocortis 2020-11 Yes [id number] TAKE TWO NPI:183 one 10 mg 2-31 TABLETS BY 1318 781 tablet 00:00: MOUTH IN 00 THE MORNING AND ONE TABLET AT 2:00PM, take extra on sick days levothyroxi 2020-11 Yes [id number] 25ug Take 1 NPI:183 ne 25 mcg 2-[place] [id number] 81 tablet 00:00: mouth 00 every morning. metoprolol 2020-11 Yes 37.5mg Take 37.5 NPI:183 tartrate 2-31 mg by [id number] 37.5 mg Tab 00:00: mouth 00 daily. hydrocortis 2020-11 Yes [id number] TAKE TWO NPI:183 one 10 mg 2-31 TABLETS BY 1318 781 tablet 00:00: MOUTH IN 00 THE MORNING AND ONE TABLET AT 2:00PM, take extra on sick days levothyroxi 2020-11 Yes [id number] 25ug Take 1 NPI:183 ne 25 [place]cg 2-[place] [id number] 81 tablet 00:00: mouth 00 every morning. ALENDRONATE 2020-11 Yes [id number] 70mg TAKE 1 NPI:183 70 mg 2-03 TABLET BY [id number] tablet 00:00: MOUTH 00 WEEKLY ALENDRONATE 2020-11 Yes [id number] 70mg TAKE 1 NPI:183 70 mg 2-03 TABLET BY [id number] tablet 00:00: MOUTH 00 WEEKLY ALENDRONATE 2020-11 Yes [id number] 70mg TAKE 1 NPI:183 70 mg 2-03 TABLET BY [id number] tablet 00:00: MOUTH 00 WEEKLY ALENDRONATE 2020-11 Yes [id number] 70mg TAKE 1 NPI:183 70 mg 2-03 TABLET BY [id number] tablet 00:00: MOUTH 00 WEEKLY Oxycodone 2018-0 Yes NPI:183 10 mg Tab 2-08 [id number] 00:00: 00 Oxycodone 2018-0 Yes NPI:183 10 mg Tab 2-08 [id number] 00:00: 00 Oxycodone 2018-0 Yes NPI:183 10 mg Tab 2-08 [id number] 00:00: 00 Oxycodone 2018-0 Yes NPI:183 10 mg Tab 2-08 [id number] 00:00: 00 zaleplon 5 2018-0 Yes NPI:183 mg capsule 1-11 [id number] 00:00: 00 zaleplon 5 2018-0 Yes NPI:183 mg capsule 1-11 [id number] 00:00: 00 zaleplon 5 2018-0 Yes NPI:183 mg capsule 1-11 [id number] 00:00: 00 zaleplon 5 2018-0 Yes NPI:183 mg capsule 1-11 [id number] 00:00: 00 amitriptyli 2017-0 Yes 200mg Take 200 N PI:183 ne 100 mg 7-01 mg by [id number] tablet 00:00: mouth at 00 bedtime. amitriptyli 2017-0 Yes 200mg Take 200 N PI:183 ne 100 mg 7-01 mg by [id number] tablet 00:00: mouth at 00 bedtime. amitriptyli 2017-0 Yes 200mg Take 200 N PI:183 ne 100 mg 7-01 mg by [id number] tablet 00:00: mouth at 00 bedtime. amitriptyli 2017-0 Yes 200mg Take 200 N PI:183 ne 100 mg 7-01 mg by [id number] tablet 00:00: mouth at 00 bedtime. omeprazole 2017-0 Yes 20mg Take 20 mg N PI:183 20 mg 6-15 by mouth [id number] capsule 00:00: daily. 00 omeprazole 2017-0 Yes 20mg Take 20 mg N PI:183 20 mg 6-15 by mouth [id number] capsule 00:00: daily. 00 omeprazole 2017-0 Yes 20mg Take 20 mg N PI:183 20 mg 6-15 by mouth [id number] capsule 00:00: daily. 00 omeprazole 2017-0 Yes 20mg Take 20 mg N PI:183 20 mg 6-15 by mouth [id number] capsule 00:00: daily. 00 ALPRAZolam 2017-0 Yes 1mg Take 1 mg [employer] I:183 1 mg tablet 4-25 by mouth [id number] 781 00:00: daily. 00 ALPRAZolam 2017-0 Yes 1mg Take 1 mg [employer] I:183 1 mg tablet 4-25 by mouth [id number] 781 00:00: daily. 00 ALPRAZolam 2017-0 Yes 1mg Take 1 mg SUPER[employer] I:183 1 mg tablet 4-25 by mouth [id number] 781 00:00: daily. 00 ALPRAZolam 2017-0 Yes 1mg Take 1 mg SUPER[employer] TYPE [employer]GR[employer] I:183 1 mg tablet 4-25 by mouth [id number] 781 00:00: daily. 00 Immunizations Ordered Immunization Filled Immunization Date Status Commen ts Source Name Name SARS-COV-2 COVID-19 2021-02-04 Completed NPI:1 [id number] PFIZER VACCINE 00:00:00 SARS-COV-2 COVID-19 2021-02-04 Completed NPI:1 [id number] PFIZER VACCINE 00:00:00 SARS-COV-2 COVID-19 2021-02-04 Completed NPI:1 [id number] PFIZER VACCINE 00:00:00 SARS-COV-2 COVID-19 2021-02-04 Completed NPI:1 [id number] PFIZER VACCINE 00:00:00 SARS-COV-2 COVID-19 2021-01-14 Completed NPI:1 [id number] PFIZER VACCINE 00:00:00 SARS-COV-2 COVID-19 2021-01-14 Completed NPI:1 [id number] PFIZER VACCINE 00:00:00 SARS-COV-2 COVID-19 2021-01-14 Completed NPI:1 [id number] PFIZER VACCINE 00:00:00 SARS-COV-2 COVID-19 2021-01-14 Completed NPI:1 [id number] PFIZER VACCINE 00:00:00 Influenza Virus 2018-01-12 Completed NPI:[id number] Vaccine Quad IM 3+ 00:00:00 YRS Influenza Virus 2018-01-12 Completed NPI:[id number] [id number] Vaccine Quad IM 3+ 00:00:00 YRS Influenza Virus 2018-01-12 Completed NPI:[id number] Vaccine Quad IM 3+ 00:00:00 YRS Influenza Virus 2018-01-12 Completed NPI:[id number] Vaccine Quad IM 3+ 00:00:00 YRS Procedures Procedure Date / Time Performed Performing Clinician [facility] e BI ULTRASOUND BREAST 2022-03-25 18:10:39 OlmanPatrick jaraki Sarai NPI:1 [id number] COMPLETE BILATERAL BI DIAGNOSTIC 2022-03-25 16:44:00 Tanmay Vikki Moon NPI:[id number] TOMOSYNTHESIS BILATERAL REFERRAL- REQUEST/RESPONSE 2022-02-18 05:01:00 Doctor Unassigned , No Name Encounters Start End Encounter Admission Attending Care Care Encounter Source Date/Time Date/Time Type Type Clinicians Facility Department ID 2022-03-01 Outpatient [facility] [id number] NPI:152 21:32:02 [id number] 2022-04-15 2022-04-15 Outpatient Dakotah [facility] [id number] NPI:183 14:00:00 14:00:00 VIKKI [id number] 1 2022-04-10 2022-04-10 Outpatient [facility] [id number] NPI:183 13:05:00 13:05:00 VIKKI [id number] 1 2022-04-01 2022-04-01 Outpatient [facility] [id number] NPI:183 13:45:00 13:45:00 VIKKI [id number] 1 2022-04-01 2022-04-01 Outpatient [facility] [id number] NPI:183 13:45:00 13:45:00 VIKKI [id number] 1 2022-03-25 2022-03-25 [facility] [id number] [id number] NPI:183 10:33:57 23:59:00 Encounter Vikki Moon SPECIALTY [id number] [id number] [facility] 4.2.7.2.686 [facility] [id number] [facility] [address] 2022-03-25 2022-03-25 Outpatient R [facility] [id number] NPI:183 11:13:52 10:32:00 VIKKI [id number] 1 2022-03-25 2022-03-25 [facility] [id number] [id number] NPI:183 10:30:00 10:32:00 Encounter Vikki Moon SPECIALTY 350.1.13.10 [id number] [facility] 4.2.7.2.686 [facility] [id number] ROOPA HENSON 2022-03-25 2022-03-25 Outpatient R [facility] [id number] NPI:183 00:00:00 00:00:00 VIKKI [id number] 1 2022-02-18 2022-02-18 Telephone [facility] 1.2.840.114 [id number] NPI:183 00:00:00 00:00:00 Vikki Moon HEALTH 350.1.13.[id number] [facility] [id number] MDA [id number] 2022-02-18 2022-02-18 Orders Doctor PATT 1.2.840.114 [id number] NPI:183 00:00:00 00:00:00 Only Unassigned, NIEVES 350.1.13.10 [id number] [facility] 4.2.7.2.686 [id number] 2021-05-15 2021-05-15 Orders Doctor PATT 1.2.840.114 [id number] 00:00:00 00:00:00 Only Unassigned, NIEVES 350.1.13.10 [facility] 4.2.7.2.686 [id number] 2021-05-03 2021-05-03 Office [facility] 1.2.840.114 [id number] 13:19:28 14:16:38 Visit Ирина Melgarton 350.1.13.10 [place] 4.2.7.2.686 [id number] [facility] Results Test Description Test Time Test Comments Results Result Comments Source SARS-COV2/RT-PCR ([facility]) 2020-06-25 15:01:00 Test Item Value Reference Range Interpretation Comme nts SARS-COV2/RT-PCR (test code = 8288406) Negative Not Detected, N egative, See external report for linked test SARS-COV-2 PERFORMING LAB (test code = [facility] [id number]) Negative results do not preclude SARS-CoV-2 infection [...] of the Act.Fact Sheet for Healthcare Pro viders:https://www.[employer]/Documents/Xpert%20Xpress%20SARS%20CoV-2/Fact%20Sh eets/302-3802%44ZVHH-NUR-9%20HEALTHCARE%20PROVIDERS%20FACT%20SHEET.pdfFact Sheet for Healthcare Patients:https://www.[employer]/Documents/Xpert%20Xpress%20SARS%20CoV-2/Fact%20Sheets/302-3801%20SARS-COV -2%20PATIENT%20FACT%20SHEET.pdfPerforming Laboratory:[facility], [place] [address]FWBV-JZZ9/RT-PCR ([facility]) 2020-05-25 01:10:00 Test Item Value Reference Range Interpretation Comments SARS-COV2/RT-PCR (test code = Negative Not Detected, Negative [id number]) SARS-COV-2 PERFORMING LAB [facility] (test code = 4615553) Negative result for this test determines that [...] a nasopharyngeal swab specimen collected from individuals susp ected of COVID-19 by their healthcare provider.This test [...] 564(g) of the Act.Fact Sheet for Healthcare Providers:https://www.[employer].com/sites/default/files/product/documents/Fact_Shee k_IV_Uevbjbcwx_Fdbi_BNEC-ZtX-6.pdfFact Sheet for Healthcare Patients:https://www.[employer].com/sites/default/files/product/ documents/Fvgy_Ktgdp_Bzxnjqjy_Gnnn_UVFT-UaV-0.pdfPerforming Laboratory:[facility] [place] [address]
[2022-04-01 14:49] LABS: Absolute Lymphocytes (CBC) 1.6 K/uL (0.7-4.9); Hematocrit 34.2 % (36.0-45.0); MPV 8.4 fL (7.6-11.3); RBC Red Blood Cell Count 4.21 M/uL (3.86-4.86)
[2022-04-01 14:52] LABS: Albumin 3.3 g/dL (3.4-5.0); Bilirubin Total 0.1 mg/dL (0.2-1.0); Protein, Total 7.6 g/dL (6.4-8.2)
[2022-04-01 14:56] LABS: Potassium 4.2 mmol/L (3.5-5.1)
[2022-04-01] MEDS ORDERED: HYDROCORTISONE SUC 100 MG INJ ONE (14:56)
[2022-04-01] MEDS ORDERED: ONDANSETRON 4 MG/2 ML VIAL ONE (14:56)
--- NOTE | 2022-04-01 16:41 | RAD REPORT ---
EXAM DESCRIPTION: CTAbdomen Pelvis W Contrast - 04/01/2022 4:28 pm CLINICAL HISTORY: Abdominal pain. Abdominal pain, acute, nonlocalized COMPARISON: Abdomen Pelvis W Contrast dated 01/06/2022; Abdomen Pelvis W Contrast dated 05/05/2021 ; Abdomen Pelvis W Contrast dated 08/27/2020; Abdomen Pelvis W Contrast dated 08/02/2019 TECHNIQUE: Biphasic CT imaging of the abdomen and pelvis was performed with 100 ml non-ionic IV cont rast. All CT scans are performed using dose optimization technique as appropriate and may include automated exposure control or mA/KV adjustment according to patient size. FINDINGS: The lung bases are clear. Pneumobilia is present with cholecystectomy clips. No liver mass or biliary dilatation. The spleen, p ancreas, adrenal glands and kidneys are within normal limits. No bowel obstruction, free air, free fluid or abscess. Appendectomy. Significant constipation. No ev idence of significant lymphadenopathy. No suspicious bony findings. IMPRESSION: Significant constipation.
[2022-04-01] MEDS ORDERED: NA CHLORIDE 0.9% 1,000 ML ONE (17:24)
[2022-04-01] MEDS ORDERED: DICYCLOMINE HCL 20 MG/2 ML AMP IM ONE (17:42)
[2022-04-01] MEDS ORDERED: GOLYTELY 4000 ML PO ONE (18:00)
--- NOTE | 2022-04-01 19:04 | EDPHYS ---
Physician Documentation [facility] Name: Dulce Cerna Age: 66 yrs Sex: Female : 1955 Arrival Date: 04/01/2022 Time: 12:52 Bed 6 Private MD: Brayan Valladares E ED Physician Jesus Butt HPI: 04/01 13:37 This 66 yrs old Female presents to ER via Ambulatory with complaints of Constipation. jr8 13:37 Onset: The symptoms/episode began/occurred gradually, 2 week(s) ago. Associated signs jr8 and symptoms: Pertinent positives: abdominal pain. Modifying factors: The patient symptoms are alleviated by nothing, the patient symptoms are aggravated by nothing. The patient has not experienced similar symptoms in the past. The patient has not recently seen a physician. This is a 66-year-old female patient who presented to the emergency room with complaints of constipation and inability to defecate for the past 2 weeks. Patient has a history of IBS-C. Patient stated that she suffers from constipation but usually is well controlled with MiraLAX. At this point has not been able to have any sort of bowel movement for the last 2 weeks and is now becoming distended, nauseated, and now having abdominal discomfort.. Historical: - Allergies: 13:15 PENICILLINS; jl7 13:15 Sulfa (Sulfonamide Antibiotics); jl7 - Home Meds: 13:15 amitriptyline 100 mg Oral tab 1 tab once daily [Active]; clonazepam 1 mg Oral tab 1 tab jl7 2 times per day [Active]; estradiol 2 mg Oral tab 1 tab once daily [Active]; fludrocortisone 0.1 mg Oral tab 1 tab once daily for Symptomatic Orthostatic Hypotension [Active]; oxycodone 10 mg Oral tab 1 tab three times a day [Active]; Sonata 5 mg Oral cap 2 caps once daily [Active]; zaleplon 5 mg Oral cap 1 cap once daily [Active]; levothyroxine 25 mcg tab 1 tab once daily [Active]; hydrocortisone 10 mg Oral tab [Active]; duloxetine 60 mg Oral cpDR 2 caps once daily [Active]; aspirin 81 mg Oral TbEC 1 tab once daily [Active]; - PMHx: 13:15 addisons; Chronic pain; Depression; Early Dementia; Hyperlipidemia; Irritable bowel jl7 syndrome; TIA; - PSHx: 13:15 Total abdominal hysterectomy; Exploratory laparotomy; Appendectomy; Cholecystectomy; jl7 endometriosis; - Immunization history:: Client reports receiving the 2nd dose of the Covid vaccine. - Social history:: Smoking status: Patient denies any tobacco usage or history of. ROS: 13:37 Eyes: Negative for injury, pain, redness, and discharge, ENT: Negative for injury, jr8 pain, and discharge, Neck: Negative for injury, pain, and swelling, Cardiovascular: Negative for chest pain, palpitations, and edema, Respiratory: Negative for shortness of breath, cough, wheezing, and pleuritic chest pain, Back: Negative for injury and pain, MS/Extremity: Negative for injury and deformity, Skin: Negative for injury, rash, and discoloration, Neuro: Negative for headache, weakness, numbness, tingling, and seizure. 13:37 Abdomen/GI: Positive for abdominal pain, nausea, constipation, abdominal distension. Exam: 13:37 Constitutional: This is a well developed, well nourished patient who is awake, alert, jr8 and in no acute distress. Cardiovascular: Regular rate and rhythm with a normal S1 and S2. No gallops, murmurs, or rubs. Normal PMI, no JVD. No pulse deficits. Respiratory: Lungs have equal breath sounds bilaterally, clear to auscultation and percussion. No rales, rhonchi or wheezes noted. No increased work of breathing, no retractions or nasal flaring. Back: No spinal tenderness. No costovertebral tenderness. Full range of motion. Skin: Warm, dry with normal turgor. Normal color with no rashes, no lesions, and no evidence of cellulitis. MS/ Extremity: Pulses equal, no cyanosis. Neurovascular intact. Full, normal range of motion. Neuro: Awake and alert, GCS 15, oriented to person, place, time, and situation. Cranial nerves II-XII grossly intact. Motor strength 5/5 in all extremities. Sensory grossly intact. 13:37 Abdomen/GI: Inspection: distension, that is mild, Bowel sounds: diminished, in all quadrants, Palpation: soft, in all quadrants, mild abdominal tenderness, in the abdomen diffusely, no appreciated organomegaly, Indicators: McBurney's point is not tender, Perkins's sign is negative, Liver: tenderness, is not appreciated. Vital Signs: 13:14 BP 144 / 69; Pulse 81; Resp 15; Temp 97.6; Pulse Ox 99% ; Weight 79.38 kg; Height 5 ft. jl7 3 in. (160.02 cm); Pain 7/10; 18:36 BP 140 / 70; Pulse 80; Resp 16 S; Pulse Ox 99% on R/A; jd3 20:45 BP 153 / 68; Pulse 72; Resp 16 S; Pulse Ox 98% on R/A; al4 22:15 BP 175 / 84; Pulse 68; Resp 14 S; Pulse Ox 97% on R/A; al4 23:00 BP 159 / 82; Pulse 72; Resp 13 S; Pulse Ox 100% on R/A; al4 23:45 BP 153 / 83; Pulse 70; Resp 15 S; Pulse Ox 99% on R/A; al4 13:14 Body Mass Index 31.00 (79.38 kg, 160.02 cm) jl7 Procedures: 22:17 Peripheral line: by aseptic technique a peripheral line was placed in the right jr8 external jugular vein. MDM: 13:37 Patient medically screened. jr8 17:23 Data reviewed: vital signs, nurses notes, lab test result(s), radiologic studies, CT jr8 scan. Data interpreted: Pulse oximetry: on room air is 99 %. Interpretation: normal. Counseling: I had a detailed discussion with the patient and/or guardian regarding: the historical points, exam findings, and any diagnostic results supporting the discharge/admit diagnosis, lab results, radiology results. ED course: Spoke with Dr. Hatfield about patient as she has tried several modalities without success. Stated to try GoLYTELY and soapsuds enemas for now and see how she does . 19:17 ED course: Patient had contrast extravasation after the CT. contrast was injected jr8 through the left antecubital region. We have had warm packs on it but despite this patient's arm continues to swell and now has mild discoloration to the hand with pain. Difficulty obtaining palpable radial pulse on that side. Getting Doppler for further exploration. And will notify general surgery.. 20:54 ED course: Patient doing better. Doppler with no acute arterial compression. Pain jr8 decreased along with discoloration. Will admit for obs. 21:00 ED course: Consulted Dr. Seals and will see patient for the swollen arm. 04/01 13:21 Order name: CBC with Diff; Complete Time: 21:47 8 04/01 13:21 Order name: CMP; Complete Time: 15:04 8 04/01 13:21 Order name: Lipase; Complete Time: 15:04 8 04/01 15:05 Order name: CT Abd/Pelvis - IV Contrast Only; Complete Time: 16:49 04/01 21:20 Order name: COVID-19 SARS RT PCR (Document "Date of Onset" if Symptomatic); Complete Time: 23:29 04/01 21:26 Order name: CBC Smear Scan; Complete Time: 21:47 EDMS 04/01 19:30 Order name: Upper Ext Artery Uni Carson; Complete Time: 20:08 EDCT 04/01 13:21 Order name: IV Saline Lock; Complete Time: 14:00 04/01 13:21 Order name: Labs collected and sent; Complete Time: 14:00 04/01 18:00 Order name: Misc. Order: soap-nadia enema; Complete Time: 18:00 jd3 Administered Medications: 07:45 Drug: Dicyclomine 20 mg Route: IM; Site: right gluteus; jd3 14:57 Drug: Zofran (Ondansetron) 4 mg Route: IVP; Site: left antecubital; jd3 15:30 Follow up: Response: No adverse reaction jd3 14:57 Drug: Solu-CORTEF (hyrdoCORTISONE) 100 mg Route: IVP; Site: left antecubital; jd3 15:30 Follow up: Response: No adverse reaction jd3 17:50 Drug: NS 0.9% 1000 ml Route: IV; Rate: 1000 ml; Site: right antecubital; jd3 23:36 Follow up: Response: No adverse reaction; IV Status: Completed infusion al4 18:35 Drug: Golytely 240 ml Route: PO; jd3 22:14 Drug: morphine 2 mg Route: IVP; Site: right jugular; ll3 Disposition Summary: 04/01/22 21:02 Hospitalization Ordered Hospitalization Status: Observation jr8 Provider: Evens Hernández Location: Telemetry/MedSurg (observation)(04/01/22 21:02) jr8 Condition: Stable(04/01/22 21:02) jr8 Problem: new(04/01/22 21:02) jr8 Symptoms: have improved(04/01/22 21:02) jr8 Bed/Room Type: Standard jr8 Room Assignment: 223(04/01/22 23:32) mw Diagnosis - Constipation jr8 - Extravesation of contrast with arm swelling jr8 Forms: - Medication Reconciliation Form jr8 - SBAR form jr8 Addendum: 04/04/2022 07:18 Co-signature as Attending Physician, Jesus Butt MD I agree with the assessment and k dr plan of care. Signatures: Dispatcher [employer] EDMS Brenda Arias RN RN mw Rittger, Kevin, MD MD [facility] Kaushal Camarena PA PA jr8 Donte Abdalla, SHEET METAL SUPERVISOR-C SHEET METAL SUPERVISOR-Cla1 Renetta Padilla RN RN jl7 Waqas Sutton RN RN jd3 Jose Martin Caldera RN RN ll3 Mark Pradhan Corrections: (The following items were deleted from the chart) 04/01 18:49 16:57 Brain Wo Cont+MRI.RAD.BRZ ordered. EDMS EDMS 19:13 19:03 Home jr8 jr8 19:13 19:03 new jr8 jr8 19:13 19:03 have improved jr8 jr8 19:13 19:03 Stable jr8 jr8 19:13 19:03 Slow transit constipation jr8 jr8 19:21 19:03 ED course: Patient feeling much better at this point. Has had a large bowel jr8 movement. Able to get down a fair amount of the GoLytely as well. We will have her start back on her MiraLAX tomorrow and continue to vigorously hydrate.. jr8 19:30 19:16 Lower Extremity Artery Uni Ltd+US.RAD.BRZ ordered. EDMS EDMS 23:32 21:02 jr8 mw
--- NOTE | 2022-04-01 19:04 | ER ---
Nurse's Notes [facility] Name: Dulce Cerna Age: 66 yrs Sex: Female : 1955 Arrival Date: 04/01/2022 Time: 12:52 Bed 6 Private MD: Brayan Valladares E Diagnosis: Constipation;Extravesation of contrast with arm swelling Presentation: 04/01 13:14 Chief complaint: Patient states: Last BM 2 weeks ago, reports nausea. Coronavirus jl7 screen: At this time, the client does not indicate any symptoms associated with coronavirus-19. Ebola Screen: No symptoms or risks identified at this time. Initial Sepsis Screen: Does the patient meet any 2 criteria? No. Patient's initial sepsis screen is negative. Does the patient have a suspected source of infection? No. Patient's initial sepsis screen is negative. Risk Assessment: Do you want to hurt yourself or someone else? Patient reports no desire to harm self or others. Onset of symptoms was April 01, 2022. 13:14 Method Of Arrival: Ambulatory jl7 13:14 Acuity: TRACY 3 jl7 Triage Assessment: 13:15 General: Appears in no apparent distress. uncomfortable, Behavior is calm, cooperative, jl7 appropriate for age. Pain: Complains of pain in right upper quadrant and left upper quadrant Pain currently is 7 out of 10 on a pain scale. GI: Reports constipation, nausea. Historical: - Allergies: 13:15 PENICILLINS; jl7 13:15 Sulfa (Sulfonamide Antibiotics); jl7 - Home Meds: 13:15 amitriptyline 100 mg Oral tab 1 tab once daily [Active]; clonazepam 1 mg Oral tab 1 tab jl7 2 times per day [Active]; estradiol 2 mg Oral tab 1 tab once daily [Active]; fludrocortisone 0.1 mg Oral tab 1 tab once daily for Symptomatic Orthostatic Hypotension [Active]; oxycodone 10 mg Oral tab 1 tab three times a day [Active]; Sonata 5 mg Oral cap 2 caps once daily [Active]; zaleplon 5 mg Oral cap 1 cap once daily [Active]; levothyroxine 25 mcg tab 1 tab once daily [Active]; hydrocortisone 10 mg Oral tab [Active]; duloxetine 60 mg Oral cpDR 2 caps once daily [Active]; aspirin 81 mg Oral TbEC 1 tab once daily [Active]; - PMHx: 13:15 addisons; Chronic pain; Depression; Early Dementia; Hyperlipidemia; Irritable bowel jl7 syndrome; TIA; - PSHx: 13:15 Total abdominal hysterectomy; Exploratory laparotomy; Appendectomy; Cholecystectomy; jl7 endometriosis; - Immunization history:: Client reports receiving the 2nd dose of the Covid vaccine. - Social history:: Smoking status: Patient denies any tobacco usage or history of. Screenin:47 Abuse screen: Denies threats or abuse. Nutritional screening: No deficits noted. jd3 Tuberculosis screening: No symptoms or risk factors identified. Fall Risk Ambulatory Aid- None/Bed Rest/Nurse Assist (0 pts). Gait- Normal/Bed Rest/Wheelchair (0 pts) Mental Status- Oriented to own ability (0 pts). Total Vásquez Fall Scale indicates No Risk (0-24 pts). Assessment: 13:17 General: CARLYN Easley in triage assessing pt. jl7 14:47 General: Appears in no apparent distress. comfortable, Behavior is calm, cooperative, jd3 appropriate for age. Pain: Complains of pain in abdomen Quality of pain is described as aching. Neuro: [place] Agitation-Sedation Scale (RASS): 0 - Alert and Calm Level of Consciousness is awake, alert, obeys commands, Oriented to person, place, time, situation. Cardiovascular: Denies chest pain, Capillary refill < 3 seconds Patient's skin is warm and dry. Respiratory: Airway is patent Respiratory effort is even, unlabored, Respiratory pattern is regular, symmetrical, Denies cough, shortness of breath. GI: Abdomen is distended, Abdomen is tender to palpation X 4 quads. Reports constipation, nausea, vomiting. : No signs and/or symptoms were reported regarding the genitourinary system. EENT: No signs and/or symptoms were reported regarding the EENT system. Derm: Skin is intact, Skin is dry, Skin is normal, Skin temperature is warm. Musculoskeletal: Circulation, motion, and sensation intact. Range of motion: intact in all extremities. 15:13 Reassessment: Patient appears in no apparent distress at this time. No changes from jd3 previously documented assessment. Patient and/or family updated on plan of care and expected duration. Pain level reassessed. Patient is alert, oriented x 3, equal unlabored respirations, skin warm/dry/pink. 16:15 Reassessment: Patient appears in no apparent distress at this time. Patient and/or jd3 family updated on plan of care and expected duration. Pain level reassessed. Patient is alert, oriented x 3, equal unlabored respirations, skin warm/dry/pink. 17:00 Reassessment: left arm with swelling after infiltration. small blisters noted to left jd3 forearm.discoloration noted to left hand, provider notified. 18:30 Reassessment: pt with increased swelling to left arm and size of blisters to left jd3 forearm. provider notified. 18:36 Reassessment: Patient and/or family updated on plan of care and expected duration. Pain jd3 level reassessed. Patient is alert, oriented x 3, equal unlabored respirations, skin warm/dry/pink. pt with one large bowel movement after soap-suds enema Patient states feeling better. 19:15 General: Appears in no apparent distress. comfortable, Behavior is calm, cooperative, al4 appropriate for age. Pain: Complains of pain in left arm. Neuro: Level of Consciousness is awake, alert, obeys commands, Oriented to person, place, time, situation. Cardiovascular: Patient's skin is warm and dry. Respiratory: Airway is patent Respiratory effort is even, unlabored, Respiratory pattern is regular, symmetrical. GI: Abdomen is round Abdomen is tender to palpation X 4 quads. Reports nausea. : No signs and/or symptoms were reported regarding the genitourinary system. EENT: No signs and/or symptoms were reported regarding the EENT system. Derm: Skin is intact, Skin is dry, Skin temperature is warm. Derm: Wound noted dorsal aspect of left forearm Wound is dime size blisters x 3. Musculoskeletal: Circulation, motion, and sensation intact. 20:45 Reassessment: Patient is alert, oriented x 3, equal unlabored respirations, skin al4 warm/dry/pink. Provider and RN at bedside. Patient updated and understands plan of care. Patient is in no apparent distress at this time. 23:33 Reassessment: Patient appears in no apparent distress at this time. Patient is alert, al4 oriented x 3, equal unlabored respirations, skin warm/dry/pink. patient states she is becoming uncomfortable from her "bowels starting to move", RN asked if there was anything that can be done to help, patient states not at this time. patient states L arm is feeling better, but still sore. L arm is normal skin color, sensation intact. . 04/02 00:01 Reassessment: attempted to call report to second floor. RN unable to take report at al4 this time. 00:09 Reassessment: Patient appears in no apparent distress at this time. waiting on staff to [facility] become available to transport patient upstairs. Vital Signs: 04/01 13:14 BP 144 / 69; Pulse 81; Resp 15; Temp 97.6; Pulse Ox 99% ; Weight 79.38 kg; Height 5 ft. jl7 3 in. (160.02 cm); Pain 7/10; 18:36 BP 140 / 70; Pulse 80; Resp 16 S; Pulse Ox 99% on R/A; jd3 20:45 BP 153 / 68; Pulse 72; Resp 16 S; Pulse Ox 98% on R/A; al4 22:15 BP 175 / 84; Pulse 68; Resp 14 S; Pulse Ox 97% on R/A; al4 23:00 BP 159 / 82; Pulse 72; Resp 13 S; Pulse Ox 100% on R/A; al4 23:45 BP 153 / 83; Pulse 70; Resp 15 S; Pulse Ox 99% on R/A; al4 13:14 Body Mass Index 31.00 (79.38 kg, 160.02 cm) jl7 ED Course: 12:52 Patient arrived in ED. as 12:53 Brayan Valladares MD is Private Physician. as 13:15 Triage completed. jl7 13:15 Arm band placed on right wrist. jl7 13:21 Kaushal Camarena PA is PHCP. jr8 13:21 Jesus Butt MD is Attending Physician. jr8 13:59 Waqas Sutton, ROYAL is Primary Nurse. jd3 14:46 Accessed peripheral vein via ultrasound, utilizing dynamic ultrasound technique using jd3 20G Nexia IV catheter ,sterile technique, per hospital protocol. Clean \\T\\ dry. Dressing intact. Good blood return. Flushes easily. 20 G left AC. 14:47 Patient has correct armband on for positive identification. Bed in low position. Call jd3 light in reach. Side rails up X 1. Pulse ox on. NIBP on. 16:00 IV is reddened, is swollen, with fluids not infusing freely, without good blood return, jd3 IV infiltrated during CT study. provider notified. pressure dressing applied and IV D/C'd to left AC. 16:10 Accessed peripheral vein via ultrasound, utilizing dynamic ultrasound technique using jd3 20G Nexia IV catheter ,sterile technique, per hospital protocol. Clean \\T\\ dry. Dressing intact. Good blood return. Flushes easily. 20 G right AC. 16:30 CT Abd/Pelvis - IV Contrast Only In Process Unspecified. EDMS 18:20 IV is swollen, with fluids not infusing freely, without good blood return, line D/C'd jd3 on right AC and pressure dressing applied. 19:03 Milan Hatfield MD is Referral Physician. jr8 20:01 Upper Ext Artery Uni Carson In Process Unspecified. EDMS 21:01 Evens Hernández MD is Hospitalizing Provider. jr8 04/02 00:08 No provider procedures requiring assistance completed. Patient admitted, IV remains in al4 place. Administered Medications: 04/01 07:45 Drug: Dicyclomine 20 mg Route: IM; Site: right gluteus; jd3 14:57 Drug: Zofran (Ondansetron) 4 mg Route: IVP; Site: left antecubital; jd3 15:30 Follow up: Response: No adverse reaction jd3 14:57 Drug: Solu-CORTEF (hyrdoCORTISONE) 100 mg Route: IVP; Site: left antecubital; jd3 15:30 Follow up: Response: No adverse reaction jd3 17:50 Drug: NS 0.9% 1000 ml Route: IV; Rate: 1000 ml; Site: right antecubital; jd3 23:36 Follow up: Response: No adverse reaction; IV Status: Completed infusion al4 18:35 Drug: Golytely 240 ml Route: PO; jd3 22:14 Drug: morphine 2 mg Route: IVP; Site: right jugular; ll3 Outcome: 19:03 Discharge ordered by . jr8 21:02 Decision to Hospitalize by Provider. 04/02 00:08 Admitted to Med/surg room 223, Report called to Ruthann Neves RN al4 Condition: good Discharge instructions given to patient, Instructed on the need for admit, Demonstrated understanding of instructions. 00:43 Patient left the ED. al4 Signatures: Dispatcher [employer] EDMS Jaleesa Seals Josh, PA PA jr8 Renetta Padilla RN RN jl7 Waqas Sutton RN RN jd3 Jose Martin Caldera RN RN ll3 Mark Pradhan al4 Corrections: (The following items were deleted from the chart) 04/01 19:29 16:00 IV is reddened, is swollen, with fluids not infusing freely, without good blood jd3 return, IV infiltrated during CT study. provider notified. pressure dressing applied and IV D/C'd.. jd3 23:35 23:33 Reassessment: Patient appears in no apparent distress at this time. Patient is al4 alert, oriented x 3, equal unlabored respirations, skin warm/dry/pink. patient states she is becoming uncomfortable from her "bowels starting to move", RN asked if there was anything that can be done to help, patient states not at this time.. al4 04/02 00:27 00:09 Reassessment: Patient appears in no apparent distress at this time. al4 al4 00:28 05 23:33 Reassessment: Patient appears in no apparent distress at this time. Patient al4 is alert, oriented x 3, equal unlabored respirations, skin warm/dry/pink. patient states she is becoming uncomfortable from her "bowels starting to move", RN asked if there was anything that can be done to help, patient states not at this time. patient states L arm is feeling better, but still sore. . al4
--- NOTE | 2022-04-01 20:05 | RAD REPORT ---
EXAM DESCRIPTION: US - Upper Ext Artery Uni Carson - 04/01/2022 7:59 pm CLINICAL HISTORY: fluid infiltration Arm pain COMPARISON: Extrem Venous W Compress Carson dated 08/30/2021 FINDINGS: Left upper extremity arterial system was interrogated utilizing Doppler technique. No flow abnormality of the left upper extremity arterial system is seen. IMPRESSION: Negative study.
[2022-04-01 21:25] LABS: Anisocytosis 1+; Blood Morphology Comment NOTED (NOT SEEN); Platelet Estimate ADEQ; White Blood Cell Scan OK (OK)
[2022-04-01] MEDS ORDERED: MORPHINE 2 MG/ML SYR ONE (21:55)
--- NOTE | 2022-04-01 22:20 | P.HP ---
Certification for Inpatient Patient admitted to: Observation With expected LOS: <2 Midnights Patient will require the following post-hospital care: None Practitioner: I am a practitioner with admitting privileges, knowledge of patient current condition, hospital course, and medical plan of care. Services: Services provided to patient in accordance with Admission requirements found in Title 42 Section 412.3 of the Code of Federal Regulations Patient History Date of Service: 04/01/22 Reason for admission: Constipation, IV contrast extravasation History of Present Illness: 66-year-old female patient with history of IBSC, [place]'s, TIA, hyperlipidemia presents the emergency department for constipation. Patient reports that she struggles with chronic constipation on a chronic basis but had not had a bowel movement of any kind for 2 weeks, she reports she was passing gas. Patient was given soapsuds enema as well as some GoLytely in the emergency department she did have a moderate sized bowel movement and feels some relief, during her stay she did have a CT scan of her abdomen pelvis with IV contrast, during her CT scan her IV infiltrated with approximately 60 mL of IV contrast being injected into the tissues of her left upper extremity into the antecubital area. Shortly after CT scan patient noted some blisters appearing to the left antecubital area as well as pain, swelling. At first there was an Sherif bandage applied to the left upper extremity, staff noticed discoloration to the left hand, Sherif bandage was removed and extremity was elevated. Arterial Doppler was obtained which was negative for acute findings on exam patient with pain but without pallor, paresthesia, pulselessness or paralysis of left upper extremity. Given volume of contrast administered and swelling/pain ED provider wishes to admit under observation, general surgery was contacted by ED provider who will consult. Allergies Penicillins Allergy (Verified 03/16/19 23:40) Shortness of breath Sulfa (Sulfonamide Antibiotics) [Sulfa(Sulfonamide Antibiotics)] Allergy (Verified 03/16/19 23:40) Shortness of breath NSAIDS Adverse Reaction (Uncoded 03/16/19 23:40) Kidney Problems Home Medications: Aspirin Chewable [Aspirin Chewable*] 81 mg PO DAILY 08/27/20 Duloxetine HCl 120 mg PO DAILY 08/27/20 Estradiol 2 mg PO DAILY 08/27/20 Hydrocortisone [Cortef*] 20 mg PO BID 08/27/20 Levothyroxine Sodium 25 mcg PO DAILY 08/27/20 Oxycodone HCl [Oxycontin] 10 mg PO TID 08/27/20 Rosuvastatin Calcium 10 mg PO DAILY 08/27/20 Zaleplon 10 mg PO BEDTIME 08/27/20 clonazePAM [Klonopin*] 1 mg PO BIDP PRN 08/27/20 ARIPiprazole [Aripiprazole] 2 mg PO BEDTIME 06/05/21 Amitriptyline [Elavil*] 50 mg PO BEDTIME 06/05/21 Melatonin 10 mg PO BEDTIME 06/05/21 Potassium Chloride 20 meq PO DAILY #7 tablet.er 06/06/21 Calcium Carbonate [Calcium] 500 mg PO TID #90 tablet 06/09/21 Magnesium Citrate [Citroma*] 300 ml PO 1X PRN #1 btl 06/09/21 Metoprolol Tartrate [Lopressor*] 50 mg PO BID #60 tab 06/09/21 Senosides [Senokot*] 17.2 mg PO BID #120 tab 06/09/21 Benzonatate [Tessalon Perle*] 100 mg PO TID PRN 5 Days #15 cap 01/07/22 levoFLOXacin [Levaquin*] 750 mg PO DAILY 7 Days #7 tab 01/07/22 - Past Medical/Surgical History Diabetic: No -: Bruce's -: Irritable Bowel Syndrome -: TIA -: Chronic back pain -: hyperlipidemia -: CVA -: hypothyroidism -: Cholecystectomy -: Appendectomy -: -: Hysterectomy -: Exploratory laparotomy Psychosocial/ Personal History: Patient lives at home with her sister - Family History Mother -: Stroke, Other (see notes) Notes: Asthma. Rheumatoid Arthritis - Social History Smoking Status: Never smoker Alcohol use: No CD- Drugs: No Caffeine use: No Place of Residence: Home Review of Systems 10-point ROS is otherwise unremarkable Gastrointestinal: Constipation Musculoskeletal: Arm Pain, As per HPI Physical Examination - Physical Exam General: Alert, In no apparent distress, Oriented x3 HEENT: Atraumatic, PERRLA, Mucous membr. moist/pink, EOMI, Sclerae nonicteric Neck: Supple, 2+ carotid pulse no bruit, No LAD, Without JVD or thyroid abnormality Respiratory: Clear to auscultation bilaterally, Normal air movement Cardiovascular: Regular rate/rhythm, Normal S1 S2 Capillary refill: <2 Seconds Gastrointestinal: Normal bowel sounds, No tenderness Musculoskeletal: Swelling, Tenderness, Other (Pain, swelling noted to the left upper extremity without change in skin tone, paresthesia, pulselessness or paralysis.) Integumentary: No rashes Neurological: Normal speech, Normal strength at 5/5 x4 extr, Normal tone, Normal affect - Studies Laboratory Data (last 24 hrs) 04/01/22 14:15: Sodium 135 L, Potassium 4.2, BUN 13, Creatinine 0.73, Glucose 103, Total Bilirubin 0.1 L, AST 16, ALT 21, Alkaline Phosphatase 100, Lipase 58 L 04/01/22 14:15: WBC 11.6 H, Hgb 11.2 L, Hct 34.2 L, Plt Count 148 L Assessment and Plan - Plan Assessment: IV contrast extravasation left upper extremity 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 Provide cool compress intermittently for symptomatic relief as well as pain medicine as needed. Arterial Doppler obtained without acute findings. General surgery consulted. Every 2 hours neurovascular checks. Constipation secondary to IBS-C: Patient had bowel movement last night after receiving GoLytely, soapsuds enema. CT negative for acute findings obtaining continue home medications will attempt to limit opioid pain medications although they may be required for pain given extravasation. [place]'s: Continue home steroid dose Hyperlipidemia: Continue home medication Chronic pain: Continue home medication DVT PPX: Lovenox Code status: Full Discharge Plan: Home Plan to discharge in: 24 Hours - Advance Directives Does patient have a Living Will: No Does patient have a Durable POA for Healthcare: No - Code Status/Comfort Care Code Status Assessed: Yes (Full code) Critical Care: No Time Spent Managing Pts Care (In Minutes): 55
[2022-04-02 00:46] VITALS: BMI 30.9
[2022-04-02] MEDS: MORPHINE 2 MG/ML SYR IV PRN ×2 (01:20→05:50)
[2022-04-02 02:36] VITALS: O2SAT 97
[2022-04-02] MEDS ORDERED: clonazePAM 1 MG TAB PO PRN (02:41)
[2022-04-02] MEDS ORDERED: MELATONIN 5 MG TABLET PO PRN (03:02)
[2022-04-02] MEDS ORDERED: ONDANSETRON 4 MG/2 ML VIAL IV PRN (04:00)
[2022-04-02 05:40] LABS: Absolute Lymphocytes (CBC) 1.6 K/uL (0.7-4.9); Hematocrit 30.3 % (36.0-45.0); Lymphocytes % 13.3 % (15.3-44.8); RBC Red Blood Cell Count 3.71 M/uL (3.86-4.86)
[2022-04-02 06:02] LABS: Albumin 2.8 g/dL (3.4-5.0); Bilirubin Total 0.3 mg/dL (0.2-1.0); Potassium 3.5 mmol/L (3.5-5.1); Protein, Total 6.7 g/dL (6.4-8.2)
[2022-04-02 06:05] LABS: Urine Appearance CLEAR (Clear); Urine Bilirubin NEGATIVE (Negative); Urine Blood NEGATIVE (Negative); Urine Color YELLOW (Yellow); Urine Glucose NEGATIVE (Negative); Urine Microscopic Reflex NO UMIC; Urine Protein NEGATIVE (Negative)
[2022-04-02] MEDS ORDERED: ASPIRIN 81 MG CHEWABLE TABLET PO SCH (09:00)
[2022-04-02] MEDS ORDERED: OXYCODONE HCL 5 MG TAB PO PRN (09:00)
[2022-04-02] MEDS ORDERED: METOPROLOL TAR 50 MG TAB PO SCH (09:00)
[2022-04-02] MEDS ORDERED: ROSUVASTATIN 10 MG TAB PO SCH (09:00)
[2022-04-02] MEDS ORDERED: LEVOTHYROXINE SOD 0.025 MG TAB PO SCH (09:00)
[2022-04-02] MEDS ORDERED: ENOXAPARIN 40 MG/0.4 ML SQ SCH (09:00)
[2022-04-02] MEDS ORDERED: HYDROCORTISONE 10 MG TAB PO SCH ×2 (09:00→17:00)
[2022-04-02] MEDS ORDERED: POTASSIUM CL SA 10 MEQ TAB PO ONE (09:00)
[2022-04-02 12:33] VITALS: BP 145/69; TEMP 98.1
--- NOTE | 2022-04-02 18:02 | P.DS ---
Admission Date: 04/01/22 Discharge Date: 04/02/22 Disposition: ROUTINE DISCHARGE Discharge Condition: GOOD Reason for Admission: Constipation, IV contrast extravasation Consultations: General Surgery - Dr. Seals Procedures: Problem List IV contrast extravasation left upper extremity Constipation secondary to IBS-C [place]'s Hyperlipidemia Brief History of Present Illness: 66-year-old female patient with history of IBSC, [place]'s, TIA, hyperlipidemia presented to the ED for constipation. H/o chronic constipation but had not had a bowel movement of any kind for 2 weeks, she reports she was passing gas. Patient was given soapsuds enema as well as some GoLytely in the emergency department she did have a moderate sized bowel movement and feels some relief, during her stay she did have a CT scan of her abdomen pelvis with IV contrast, during her CT scan her IV infiltrated with approximately 60 mL of IV contrast being injected into the tissues of her left upper extremity into the antecubital area. Shortly after CT scan patient noted some blisters appearing to the left antecubital area as well as pain, swelling. At first there was an Sherif bandage applied to the left upper extremity, staff noticed discoloration to the left hand, Sherif bandage was removed and extremity was elevated. Arterial Doppler was obtained which was negative for acute findings on exam patient with pain but without pallor, paresthesia, pulselessness or paralysis of left upper extremity. Given volume of contrast administered and swelling/pain ED provider wishes to admit under observation, general surgery was contacted by ED provider who will consult. Hospital Course: Patient had extravasation of IV contrast in her left arm while undergoing CT scan. She had significant swelling to her arm. She was monitored overnight and had some improvement. General surgery, Dr. Seals was consulted and evaluated the patient. There was no evidence of compartment syndrome. She was deemed stable for discharge home. No changes in medications. No new prescriptions. Recommend keeping the left arm elevated to assist with swelling. Follow up with Dr. Seals this coming Thursday or Thursday. Call his office to schedule. Vital Signs/Physical Exam: Temp Pulse Resp BP Pulse Ox 98.1 F 71 18 145/69 H 94 04/02/22 12:00 04/02/22 12:00 04/02/22 12:00 04/02/22 12:00 04/02/22 12:00 General: Alert, In no apparent distress, Oriented x3 HEENT: Sclerae nonicteric Neck: Supple Respiratory: Clear to auscultation bilaterally, Normal air movement Cardiovascular: Regular rate/rhythm, No murmurs Gastrointestinal: Soft and benign, Non-distended, No tenderness Integumentary: Other (LUE: bullae near antecubital fossa, edematous from hand to elbow, 2+ radial pulse, intact sensation) Neurological: Normal speech, Normal affect Laboratory Data at Discharge: WBC 12.4 K/uL (4.3-10.9) H 04/02/22 05:28 Hgb 10.0 g/dL (12.0-15.0) L 04/02/22 05:28 Hct 30.3 % (36.0-45.0) L 04/02/22 05:28 Plt Count 225 K/uL (152-406) D 04/02/22 05:28 Sodium 137 mmol/L (136-145) 04/02/22 05:28 Potassium 3.5 mmol/L (3.5-5.1) 04/02/22 05:28 BUN 10 mg/dL (7-18) 04/02/22 05:28 Creatinine 0.68 mg/dL (0.55-1.3) 04/02/22 05:28 Glucose 80 mg/dL (74-106) 04/02/22 05:28 Total Bilirubin 0.3 mg/dL (0.2-1.0) 04/02/22 05:28 AST 14 U/L (15-37) L 04/02/22 05:28 ALT 19 U/L (12-78) 04/02/22 05:28 Alkaline Phosphatase 88 U/L (45-117) 04/02/22 05:28 Lipase 58 U/L (73-393) L 04/01/22 14:15 Home Medications: Aspirin Chewable [Aspirin Chewable*] 81 mg PO DAILY 08/27/20 Duloxetine HCl 120 mg PO DAILY 08/27/20 Estradiol 2 mg PO DAILY 08/27/20 Hydrocortisone [Cortef*] 30 mg PO SEECOM 08/27/20 Levothyroxine Sodium 25 mcg PO DAILY 08/27/20 Rosuvastatin Calcium 10 mg PO DAILY 08/27/20 Zaleplon 10 mg PO BEDTIME 08/27/20 clonazePAM [Klonopin*] 1 mg PO BIDP PRN 08/27/20 ARIPiprazole [Aripiprazole] 2 mg PO BEDTIME 06/05/21 Amitriptyline [Elavil*] 150 mg PO BEDTIME 06/05/21 Metoprolol Tartrate [Lopressor*] 50 mg PO BID #60 tab 06/09/21 Omeprazole [Prilosec] 1 cap PO DAILY 04/02/22 Oxycodone HCl 10 mg PO TID PRN 04/02/22 Followup: Gianluca Wolfe PA [Primary Care Provider] - (Call to schedule appointment.) Time spent managing pt's care (in minutes): 45
[2022-04-02] MEDS ORDERED: AMITRIPTYLINE 50 MG TAB PO SCH (21:00)
--- NOTE | 2022-04-02 21:53 | CON ---
Date of Consultation: 04/02/2022 Reason For Service: Left arm blister, status post infiltration of IV fluid. History Of Present Illness: This is the case of a 66-year-old patient, who was having a CAT scan don e for medical conditions. She has history of chronic constipation and also history of abdominal pain , but they noticed after the CAT scan was done, some of the IV got infiltrated creating a subcutaneou s infiltration with that blisters. The patient was admitted for observation. The patient feels bett er today. She was admitted last night. Past Medical History: Includes Bradford disease, constipation, endometriosis, chronic abdominal pain. Social Habits: Smoking positive. No alcohol. Past Surgical History: Surgeries include cholecystectomy, appendectomy, hysterectomy, exploratory gilbert rgery, multiple EGDs and colonoscopies, . Medications: Reviewed. Allergies: PENICILLIN AND SULFA. Family History: Includes breast cancer and COPD. Review of Systems: No shortness of breath. No chest pain. No fever. No rash. Physical Examination: General: The patient is awake, alert. Neck: Supple. Chest: Clear. Abdomen: Soft and depressible. Extremities: Good capillary refill. Left forearm, specifically the patient has about 3.5 cm blister , clear, translucent. No evidence of cellulitis. The rest of the area on the arm is soft. The gokul ent has good flexion and extension of the muscle at the wrist and elbow region with no limitation of movement. The patient has good peripheral pulses, radial, ulna. No cyanosis. Full range of motion. No sensory or motor deficits. Compartment is soft. Laboratory Data: Blood work reviewed. Plan: From the surgical standpoint is leg elevation. We are going to leave the blister intact since right now it is still waterproof without break. We asked the patient to put some triple antibiotics if there are no allergies to that and follow up with us in 1 week. There is no [place] [facility]. There are no open wounds. We will see the patient in my office. PATTI/RUPALI Voice ID: [id number] Report ID: [id number]
== END 2022-04-02 12:15 | disposition home or self-care (01) ==
LOC: ER 12:49 → ERHOLD 21:22 → 2ND 04-02 00:07
PROVIDERS: ADMIT Hospitalist; ATTEND Hospitalist
PROC: 05HP33Z Insertion of Infusion Device into Right External Jugular Vein, Percutaneous Approach (ICD-10-PCS; principal; 2022-04-01)
DX: T80.89XA Other complications following infusion, transfusion and therapeutic injection, initial encounter (principal); S50.822A Blister (nonthermal) of left forearm, initial encounter; Y84.8 Other medical procedures as the cause of abnormal reaction of the patient, or of later complication, without mention of misadventure at the time of the procedure; Y92.239 Unspecified place in hospital as the place of occurrence of the external cause; K58.1 Irritable bowel syndrome with constipation; E27.1 Primary adrenocortical insufficiency; E78.5 Hyperlipidemia, unspecified; G89.29 Other chronic pain; R10.9 Unspecified abdominal pain; M54.9 Dorsalgia, unspecified; E03.9 Hypothyroidism, unspecified; F03.90 Unspecified dementia, unspecified severity, without behavioral disturbance, psychotic disturbance, mood disturbance, and anxiety; F32.A Depression, unspecified; Z20.822 Contact with and (suspected) exposure to COVID-19; Z79.82 Long term (current) use of aspirin; Z79.899 Other long term (current) drug therapy; Z88.0 Allergy status to penicillin; Z88.2 Allergy status to sulfonamides; Z88.8 Allergy status to other drugs, medicaments and biological substances; Z86.73 Personal history of transient ischemic attack (TIA), and cerebral infarction without residual deficits; Z90.49 Acquired absence of other specified parts of digestive tract; Z90.710 Acquired absence of both cervix and uterus; Z83.6 Family history of other diseases of the respiratory system; Z82.3 Family history of stroke; Z82.5 Family history of asthma and other chronic lower respiratory diseases; Z82.61 Family history of arthritis; Z80.3 Family history of malignant neoplasm of breast
CPT/HCPCS: 85025 ×2; 36415; 82947 ×2; 81003; 83690; 80053 ×2; 74177; 93931; 96372; 99285; 36569; U0003; Q9967; J0500; J1650; J2270 ×3; J7030; J1720; J2405 ×2; G0378 ×2

== ENCOUNTER 2024-01-03 19:10 | Inpatient (IN) | payer OTHER ==
--- OUTSIDE RECORDS SUMMARY | 2024-01-03 19:15 | XMS REPORT | Continuity of Care Document ---
Author Name Unknown Address [address] [facility] [address] [place] [address] [facility] Address [address] [facility] [address] [place] [address] Care Team Providers Care Sales Development Coordinator Name Role Phone Josie Hilario Primary Care Physician [phone] LIZBETH CARDENAS Attending Clinician Unavailable Jolanta Lee MD Attending Clinician [phone] JOLANTA LEE Attending Clinician Unavailable JERONIMO MANZANO Attending Clinician Unavailable Lab, Ang - Db Attending Clinician Unavailable Lizbeth Cradenas MD Attending Clinician [phone] RADIOLOGY Attending Clinician Unavailable Radiology Attending Clinician Unavailable Doctor Unassigned, Cheriton Attending Clinician U Jose Ko Attending Clinician [phone] JOSE ORTIZ Attending Clinician Unavailable VIKKI DONATO Attending Clinician UnavailVikki Day MD Attending Clinician [phone], [facility] Attending Clinician Unavailable Unknown, Attending Attending Clinician Unavailab CARLITA Fajardo Attending Clinician Unavailable Jesus Newman MD Attending Clinician [phone] JESUS NEWMAN Attending Clinician Unavaildora Mcdonnell MD, Marychyu Ferreira Attending Clinician Unakori Pateliaz RD, Joyce Attending Clinician JOSIE HILARIO Admitting Clinician Unavailable JOSE ORTIZ Admitting Clinician Unavailable Payers Payer Name Policy Type Policy Number Effective Date Expirati on Date Source [facility] MEDIC[facility] ADVANTAGE [id number] 2021 00:00:00 2024 00:00:00 [employer] MEDICARE ADVANTAGE [id number] 2023 00:00:00 [employer] MEDICARE COMPLETE CHOICE [id number] 2019 00:00:00 Problems Condition Name Condition Details Condition Category Status Onset Date Resolution Date Last Treatment Date Treating Clinician Comments Source Age-relate d osteoporos is without current pathologic al fracture Age-relate d osteoporos is without current pathologic al fracture Disease Active 07-01 00:00: 00 [facility] Subclinica l hypothyroi dism Subclinica l hypothyroi dism Disease Active 07-01 00:00: 00 [facility] Prediabete s Prediabete s Disease Active 07-01 00:00: 00 [facility] 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 01-11 00:00: 00 [facility] Chest pain Chest pain Disease Active 01-11 00:00: 00 [facility] Obesity (BMI 30-39.9) Obesity (BMI 30-39.9) Disease Active 01-11 00:00: 00 [facility] 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 Disease Active 06-09 00:00: 00 [facility] Abnormal thyroid blood test Abnormal thyroid blood test Disease Active 06-09 00:00: 00 [facility] Bruce disease Bruce disease Disease Active 06-09 00:00: 00 [facility] Allergies, Adverse Reactions, Alerts Allergy Name Allergy Type Status Severity Reaction(s) Onset Date Inactive Date Treating Clinician Comments Source Penicill ins Propensi ty to adverse reaction s Active Anaphylaxis 2006-11 0 00:00: 00 [facility] Sulfa (Sulfona mide Antibiot ics) Propensi ty to adverse reaction s Active Anaphylaxis 2006-11 00:00: 00 [facility] Penicill ins Propensi ty to adverse reaction s Active Anaphylaxis 2006-11 00:00: 00 [facility] PENICILL INS Drug Class Active Anaphylaxis 2006-11 0 00:00: 00 [facility] SULFA (SULFONA MIDE ANTIBIOT ICS) Drug Class Active Anaphylaxis 2006-11 0 00:00: 00 [facility] Social History Social Habit Start Date Stop Date Quantity Comments Source History of tobacco use Current smoker [facility] Gender identity [facility] Sexual orientation [facility] Alcohol intake 2023-09-29 00:00:00 2023-09-29 00:00:00 Lifetime non-drinker (finding) [facility] History of Social function 2023-09-08 00:00:00 2023-09-08 00:00:00 [facility] Exposure to SARS-CoV-2 (event) 2023-03-16 00:00:00 2023-03-26 11:31:00 Not sure [facility] Tobacco use and exposure 2021-05-03 00:00:00 2021-05-03 00:00:00 Smokeless tobacco non-user [facility] Sex Ass[birth year] At 1955 00:00:00 1955 00:00:00 [facility] Smoking Status Start Date Stop Date Source Ex-smoker 2021-05-03 00:00:00 2021-05-03 00:00:00 [facility] Medications Ordered Medication Name Filled Medication Name Start Date Stop Date Current Medication? Ordering Clinician Indication Dosage Frequency Signature (SIG) Comments Components Source LINZESS 290 mcg Cap 2022-11 00:00: 00 Yes [id number] 290ug TAKE 1 CAPSULE BY MOUTH IN THE MORNING [facility] LINZESS 290 mcg Cap 2022-11 00:00: 00 Yes [id number] 290ug TAKE 1 CAPSULE BY MOUTH IN THE MORNING [facility] BABY ASPIRIN ORAL 2022-11 13:10: 10 Yes 81mg Take 81 mg by mouth. [facility] rosuvastati n 10 mg tablet 2022-11 13:10: 10 Yes 10mg Take 1 tablet by mouth at bedtime. [facility] DULoxetine 60 mg capsule 2022-11 13:10: 10 Yes 60mg Take 1 capsule by mouth in the morning. [facility] estradiol 2 mg tablet 2022-11 13:10: 10 Yes 2mg Take 1 tablet by mouth in the morning. [facility] melatonin 10 mg Tab 2022-11 13:10: 10 Yes 10mg Take 10 mg by mouth. [facility] clonazePAM 2 mg tablet 2022-11 13:10: 10 Yes 2mg Take 1 tablet by mouth in the morning and 1 tablet at noon and 1 tablet in the evening. [facility] BABY ASPIRIN ORAL 2022-11 13:10: 10 Yes 81mg Take 81 mg by mouth. [facility] rosuvastati n 10 mg tablet 2022-11 13:10: 10 Yes 10mg Take 1 tablet by mouth at bedtime. [facility] DULoxetine 60 mg capsule 2022-11 13:10: 10 Yes 60mg Take 1 capsule by mouth in the morning. [facility] estradiol 2 mg tablet 2022-11 13:10: 10 Yes 2mg Take 1 tablet by mouth in the morning. [facility] melatonin 10 mg Tab 2022-11 13:10: 10 Yes 10mg Take 10 mg by mouth. [facility] clonazePAM 2 mg tablet 2022-11 13:10: 10 Yes 2mg Take 1 tablet by mouth in the morning and 1 tablet at noon and 1 tablet in the evening. [facility] BABY ASPIRIN ORAL 2022-11 13:10: 10 Yes 81mg Take 81 mg by mouth. [facility] rosuvastati n 10 mg tablet 2022-11 13:10: 10 Yes 10mg Take 1 tablet by mouth at bedtime. [facility] DULoxetine 60 mg capsule 2022-11 13:10: 10 Yes 60mg Take 1 capsule by mouth in the morning. [facility] estradiol 2 mg tablet 2022-11 13:10: 10 Yes 2mg Take 1 tablet by mouth in the morning. [facility] melatonin 10 mg Tab 2022-11 13:10: 10 Yes 10mg Take 10 mg by mouth. [facility] clonazePAM 2 mg tablet 2022-11 13:10: 10 Yes 2mg Take 1 tablet by mouth in the morning and 1 tablet at noon and 1 tablet in the evening. [facility] BABY ASPIRIN ORAL 2022-11 13:10: 10 Yes 81mg Take 81 mg by mouth. [facility] rosuvastati n 10 mg tablet 2022-11 13:10: 10 Yes 10mg Take 1 tablet by mouth at bedtime. [facility] DULoxetine 60 mg capsule 2022-11 13:10: 10 Yes 60mg Take 1 capsule by mouth in the morning. [facility] estradiol 2 mg tablet 2022-11 13:10: 10 Yes 2mg Take 1 tablet by mouth in the morning. [facility] melatonin 10 mg Tab 2022-11 13:10: 10 Yes 10mg Take 10 mg by mouth. [facility] clonazePAM 2 mg tablet 2022-11 13:10: 10 Yes 2mg Take 1 tablet by mouth in the morning and 1 tablet at noon and 1 tablet in the evening. [facility] BABY ASPIRIN ORAL 2022-11 13:10: 10 Yes 81mg Take 81 mg by mouth. [facility] rosuvastati n 10 mg tablet 2022-11 13:10: 10 Yes 10mg Take 1 tablet by mouth at bedtime. [facility] DULoxetine 60 mg capsule 2022-11 13:10: 10 Yes 60mg Take 1 capsule by mouth in the morning. [facility] estradiol 2 mg tablet 2022-11 13:10: 10 Yes 2mg Take 1 tablet by mouth in the morning. [facility] melatonin 10 mg Tab 2022-11 13:10: 10 Yes 10mg Take 10 mg by mouth. [facility] clonazePAM 2 mg tablet 2022-11 13:10: 10 Yes 2mg Take 1 tablet by mouth in the morning and 1 tablet at noon and 1 tablet in the evening. [facility] BABY ASPIRIN ORAL 2022-11 13:10: 10 Yes 81mg Take 81 mg by mouth. [facility] rosuvastati n 10 mg tablet 2022-11 13:10: 10 Yes 10mg Take 1 tablet by mouth at bedtime. [facility] DULoxetine 60 mg capsule 2022-11 13:10: 10 Yes 60mg Take 1 capsule by mouth in the morning. [facility] estradiol 2 mg tablet 2022-11 13:10: 10 Yes 2mg Take 1 tablet by mouth in the morning. [facility] melatonin 10 mg Tab 2022-11 13:10: 10 Yes 10mg Take 10 mg by mouth. [facility] clonazePAM 2 mg tablet 2022-11 13:10: 10 Yes 2mg Take 1 tablet by mouth in the morning and 1 tablet at noon and 1 tablet in the evening. [facility] BABY ASPIRIN ORAL 2022-11 13:10: 10 Yes 81mg Take 81 mg by mouth. [facility] rosuvastati n 10 mg tablet 2022-11 13:10: 10 Yes 10mg Take 1 tablet by mouth at bedtime. [facility] DULoxetine 60 mg capsule 2022-11 13:10: 10 Yes 60mg Take 1 capsule by mouth in the morning. [facility] estradiol 2 mg tablet 2022-11 13:10: 10 Yes 2mg Take 1 tablet by mouth in the morning. [facility] melatonin 10 mg Tab 2022-11 13:10: 10 Yes 10mg Take 10 mg by mouth. [facility] clonazePAM 2 mg tablet 2022-11 13:10: 10 Yes 2mg Take 1 tablet by mouth in the morning and 1 tablet at noon and 1 tablet in the evening. [facility] benzonatate (TESSALON PERLES) 100 mg capsule 2022-11 00:00: 00 Yes [id number] Take 1-2 capsules three times a day as needed for cough. [facility] promethazin e-dextromet horphan 6.25-15 mg/5 mL syrup 2022-11 00:00: 00 Yes [id number] 5mL Take 5 mL by mouth 4 (four) times daily as needed for Cough. [facility] linaCLOtide (LINZESS) 290 mcg Cap 2022-11 00:00: 00 Yes [id number] 290ug Take 1 capsule by mouth in the morning. [facility] benzonatate (TESSALON PERLES) 100 mg capsule 2022-11 00:00: 00 Yes [id number] Take 1-2 capsules three times a day as needed for cough. [facility] promethazin e-dextromet horphan 6.25-15 mg/5 mL syrup 2022-11 00:00: 00 Yes [id number] 5mL Take 5 mL by mouth 4 (four) times daily as needed for Cough. [facility] linaCLOtide (LINZESS) 290 mcg Cap 2022-11 00:00: 00 Yes [id number] 290ug Take 1 capsule by mouth in the morning. [facility] benzonatate (TESSALON PERLES) 100 mg capsule 2022-11 00:00: 00 Yes [id number] Take 1-2 capsules three times a day as needed for cough. [facility] promethazin e-dextromet horphan 6.25-15 mg/5 mL syrup 2022-11 00:00: 00 Yes [id number] 5mL Take 5 mL by mouth 4 (four) times daily as needed for Cough. [facility] linaCLOtide (LINZESS) 290 mcg Cap 2022-11 00:00: 00 Yes [id number] 290ug Take 1 capsule by mouth in the morning. [facility] benzonatate (TESSALON PERLES) 100 mg capsule 2022-11 00:00: 00 Yes [id number] Take 1-2 capsules three times a day as needed for cough. [facility] promethazin e-dextromet horphan 6.25-15 mg/5 mL syrup 2022-11 00:00: 00 Yes [id number] 5mL Take 5 mL by mouth 4 (four) times daily as needed for Cough. [facility] benzonatate (TESSALON PERLES) 100 mg capsule 2022-11 00:00: 00 Yes [id number] Take 1-2 capsules three times a day as needed for cough. [facility] promethazin e-dextromet horphan 6.25-15 mg/5 mL syrup 2022-11 00:00: 00 Yes [id number] 5mL Take 5 mL by mouth 4 (four) times daily as needed for Cough. [facility] linaCLOtide (LINZESS) 290 mcg Cap 2022-11 00:00: 00 10-30 00:00 :00 No [id number] 290ug Take 1 capsule by mouth in the morning. [facility] alendronate 70 mg tablet 2022-11 00:00: 00 Yes [id number] 70mg Take 1 tablet by mouth weekly. [facility] fludrocorti sone 0.1 mg tablet 2022-11 00:00: 00 Yes [id number] .1mg Take 1 tablet by mouth in the morning. [facility] hydrocortis one 10 mg tablet 2022-11 00:00: 00 Yes [id number] TAKE 1.5 TABLETS BY MOUTH EVERY MORNING AND 1/2 TABLET AT 2 PM EVERY DAY AND TAKE AN EXTRA TABLET ON SICK DAYS [facility] levothyroxi ne 25 mcg tablet 2022-11 00:00: 00 Yes [id number] 25ug Take 1 tablet by mouth every morning. [facility] alendronate 70 mg tablet 2022-11 00:00: 00 Yes [id number] 70mg Take 1 tablet by mouth weekly. [facility] fludrocorti sone 0.1 mg tablet 2022-11 0 00:00: 00 Yes [id number] .1mg Take 1 tablet by mouth in the morning. [facility] hydrocortis one 10 mg tablet 2022-11 0 00:00: 00 Yes [id number] TAKE 1.5 TABLETS BY MOUTH EVERY MORNING AND 1/2 TABLET AT 2 PM EVERY DAY AND TAKE AN EXTRA TABLET ON SICK DAYS [facility] levothyroxi ne 25 mcg tablet 2022-11 0 00:00: 00 Yes [id number] 25ug Take 1 tablet by mouth every morning. [facility] alendronate 70 mg tablet 2022-11 0 00:00: 00 Yes [id number] 70mg Take 1 tablet by mouth weekly. [facility] fludrocorti sone 0.1 mg tablet 2022-11 0 00:00: 00 Yes [id number] .1mg Take 1 tablet by mouth in the morning. [facility] hydrocortis one 10 mg tablet 2022-11 00:00: 00 Yes [id number] TAKE 1.5 TABLETS BY MOUTH EVERY MORNING AND 1/2 TABLET AT 2 PM EVERY DAY AND TAKE AN EXTRA TABLET ON SICK DAYS [facility] levothyroxi ne 25 mcg tablet 2022-11 0 00:00: 00 Yes [id number] 25ug Take 1 tablet by mouth every morning. [facility] alendronate 70 mg tablet 2022-11 0 00:00: 00 Yes [id number] 70mg Take 1 tablet by mouth weekly. [facility] fludrocorti sone 0.1 mg tablet 2022-11 0 00:00: 00 Yes [id number] .1mg Take 1 tablet by mouth in the morning. [facility] hydrocortis one 10 mg tablet 2022-11 0 00:00: 00 Yes [id number] TAKE 1.5 TABLETS BY MOUTH EVERY MORNING AND 1/2 TABLET AT 2 PM EVERY DAY AND TAKE AN EXTRA TABLET ON SICK DAYS [facility] levothyroxi ne 25 mcg tablet 2022-11 017 00:00: 00 Yes [id number] 25ug Take 1 tablet by mouth every morning. [facility] alendronate 70 mg tablet 2022-11 0 00:00: 00 Yes [id number] 70mg Take 1 tablet by mouth weekly. [facility] fludrocorti sone 0.1 mg tablet 2022-11 0 00:00: 00 Yes [id number] .1mg Take 1 tablet by mouth in the morning. [facility] hydrocortis one 10 mg tablet 2022-11 00:00: 00 Yes [id number] TAKE 1.5 TABLETS BY MOUTH EVERY MORNING AND 1/2 TABLET AT 2 PM EVERY DAY AND TAKE AN EXTRA TABLET ON SICK DAYS [facility] levothyroxi ne 25 mcg tablet 2022-11 00:00: 00 Yes [id number] 25ug Take 1 tablet by mouth every morning. [facility] alendronate 70 mg tablet 2022-11 00:00: 00 Yes [id number] 70mg Take 1 tablet by mouth weekly. [facility] fludrocorti sone 0.1 mg tablet 2022-11 0 00:00: 00 Yes [id number] .1mg Take 1 tablet by mouth in the morning. [facility] hydrocortis one 10 mg tablet 2022-11 00:00: 00 Yes [id number] TAKE 1.5 TABLETS BY MOUTH EVERY MORNING AND 1/2 TABLET AT 2 PM EVERY DAY AND TAKE AN EXTRA TABLET ON SICK DAYS [facility] levothyroxi ne 25 mcg tablet 2022-11 0 00:00: 00 Yes [id number] 25ug Take 1 tablet by mouth every morning. [facility] alendronate 70 mg tablet 2022-11 0 00:00: 00 Yes [id number] 70mg Take 1 tablet by mouth weekly. [facility] fludrocorti sone 0.1 mg tablet 2022-11 0 00:00: 00 Yes [id number] .1mg Take 1 tablet by mouth in the morning. [facility] hydrocortis one 10 mg tablet 2022-11 00:00: 00 Yes [id number] TAKE 1.5 TABLETS BY MOUTH EVERY MORNING AND 1/2 TABLET AT 2 PM EVERY DAY AND TAKE AN EXTRA TABLET ON SICK DAYS [facility] levothyroxi ne 25 mcg tablet 2022-11 00:00: 00 Yes [id number] 25ug Take 1 tablet by mouth every morning. [facility] alendronate 70 mg tablet 2022-11 00:00: 00 Yes [id number] 70mg Take 1 tablet by mouth weekly. [facility] fludrocorti sone 0.1 mg tablet 2022-11 00:00: 00 Yes [id number] .1mg Take 1 tablet by mouth in the morning. [facility] hydrocortis one 10 mg tablet 2022-11 00:00: 00 Yes [id number] TAKE 1.5 TABLETS BY MOUTH EVERY MORNING AND 1/2 TABLET AT 2 PM EVERY DAY AND TAKE AN EXTRA TABLET ON SICK DAYS [facility] levothyroxi ne 25 mcg tablet 2022-11 00:00: 00 Yes [id number] 25ug Take 1 tablet by mouth every morning. [facility] hydrocortis one 10 mg tablet 06-22 00:00: 00 Yes [id number] TAKE 1.5 TABLETS BY MOUTH EVERY MORNING AND 1/2 TABLET AT 2 PM EVERY DAY AND TAKE AN EXTRA TABLET ON SICK DAYS [facility] hydrocortis one 10 mg tablet 06-22 00:00: 00 09-08 00:00 :00 No [id number] TAKE 1.5 TABLETS BY MOUTH EVERY MORNING AND 1/2 TABLET AT 2 PM EVERY DAY AND TAKE AN EXTRA TABLET ON SICK DAYS [facility] hydrocortis one 10 mg tablet 06-22 00:00: 00 09-08 00:00 :00 No [id number] TAKE 1.5 TABLETS BY MOUTH EVERY MORNING AND 1/2 TABLET AT 2 PM EVERY DAY AND TAKE AN EXTRA TABLET ON SICK DAYS [facility] ALENDRONATE 70 mg tablet 05-09 00:00: 00 Yes [id number] 70mg TAKE 1 TABLET BY MOUTH WEEKLY [facility] ALENDRONATE 70 mg tablet 05-09 00:00: 00 Yes [id number] 70mg TAKE 1 TABLET BY MOUTH WEEKLY [facility] ALENDRONATE 70 mg tablet 05-09 00:00: 00 09-08 00:00 :00 No [id number] 70mg TAKE 1 TABLET BY MOUTH WEEKLY [facility] ALENDRONATE 70 mg tablet 05-09 00:00: 00 09-08 00:00 :00 No [id number] 70mg TAKE 1 TABLET BY MOUTH WEEKLY [facility] FLUDROCORTI SONE 0.1 mg tablet 03-26 00:00: 00 Yes [id number] .1mg TAKE 1 TABLET BY MOUTH IN THE MORNING [facility] LEVOTHYROXI NE 25 mcg tablet 03-26 00:00: 00 Yes [id number] 25ug TAKE 1 TABLET BY MOUTH EVERY MORNING [facility] FLUDROCORTI SONE 0.1 mg tablet 03-26 00:00: 00 Yes [id number] .1mg TAKE 1 TABLET BY MOUTH IN THE MORNING [facility] LEVOTHYROXI NE 25 mcg tablet 03-26 00:00: 00 Yes [id number] 25ug TAKE 1 TABLET BY MOUTH EVERY MORNING [facility] FLUDROCORTI SONE 0.1 mg tablet 03-26 00:00: 00 Yes [id number] .1mg TAKE 1 TABLET BY MOUTH IN THE MORNING [facility] LEVOTHYROXI NE 25 mcg tablet 03-26 00:00: 00 Yes [id number] 25ug TAKE 1 TABLET BY MOUTH EVERY MORNING [facility] FLUDROCORTI SONE 0.1 mg tablet 03-26 00:00: 00 Yes [id number] .1mg TAKE 1 TABLET BY MOUTH IN THE MORNING [facility] LEVOTHYROXI NE 25 mcg tablet 03-26 00:00: 00 Yes [id number] 25ug TAKE 1 TABLET BY MOUTH EVERY MORNING [facility] FLUDROCORTI SONE 0.1 mg tablet 03-26 00:00: 00 09-08 00:00 :00 No [id number] .1mg TAKE 1 TABLET BY MOUTH IN THE MORNING [facility] LEVOTHYROXI NE 25 mcg tablet 03-26 00:00: 00 09-08 00:00 :00 No [id number] 25ug TAKE 1 TABLET BY MOUTH EVERY MORNING [facility] FLUDROCORTI SONE 0.1 mg tablet 03-26 00:00: 00 09-08 00:00 :00 No [id number] .1mg TAKE 1 TABLET BY MOUTH IN THE MORNING [facility] LEVOTHYROXI NE 25 mcg tablet 03-26 00:00: 00 09-08 00:00 :00 No [id number] 25ug TAKE 1 TABLET BY MOUTH EVERY MORNING [facility] alendronate 70 mg tablet 03-18 00:00: 00 Yes [id number] 70mg TAKE 1 TABLET BY MOUTH WEEKLY [facility] alendronate 70 mg tablet 03-18 00:00: 00 Yes [id number] 70mg TAKE 1 TABLET BY MOUTH WEEKLY [facility] alendronate 70 mg tablet 03-18 00:00: 00 Yes [id number] 70mg TAKE 1 TABLET BY MOUTH WEEKLY [facility] alendronate 70 mg tablet 03-18 00:00: 00 Yes [id number] 70mg TAKE 1 TABLET BY MOUTH WEEKLY [facility] alendronate 70 mg tablet 03-18 00:00: 00 05-09 00:00 :00 No [id number] 70mg TAKE 1 TABLET BY MOUTH WEEKLY [facility] hydrocortis one 10 mg tablet 02-23 00:00: 00 Yes [id number] TAKE 1.5 TABLETS BY MOUTH EVERY MORNING AND 1/2 TABLET AT 2 PM EVERY DAY AND TAKE AN EXTRA TABLET ON SICK DAYS [facility] hydrocortis one 10 mg tablet 02-23 00:00: 00 Yes [id number] TAKE 1.5 TABLETS BY MOUTH EVERY MORNING AND 1/2 TABLET AT 2 PM EVERY DAY AND TAKE AN EXTRA TABLET ON SICK DAYS [facility] hydrocortis one 10 mg tablet 2022-0 4-03 00:00: 00 Yes [id number] TAKE 1.5 TABLETS BY MOUTH EVERY MORNING AND 1/2 TABLET AT 2 PM EVERY DAY AND TAKE AN EXTRA TABLET ON SICK DAYS [facility] hydrocortis one 10 mg tablet 2022-0 4-03 00:00: 00 Yes [id number] TAKE 1.5 TABLETS BY MOUTH EVERY MORNING AND 1/2 TABLET AT 2 PM EVERY DAY AND TAKE AN EXTRA TABLET ON SICK DAYS [facility] hydrocortis one 10 mg tablet 2022-0 4-03 00:00: 00 Yes [id number] TAKE 1.5 TABLETS BY MOUTH EVERY MORNING AND 1/2 TABLET AT 2 PM EVERY DAY AND TAKE AN EXTRA TABLET ON SICK DAYS [facility] hydrocortis one 10 mg tablet 2022-0 - 00:00: 00 Yes [id number] TAKE 1.5 TABLETS BY MOUTH EVERY MORNING AND 1/2 TABLET AT 2 PM EVERY DAY AND TAKE AN EXTRA TABLET ON SICK DAYS [facility] hydrocortis one 10 mg tablet 2022-0 02-23 00:00: 00 Yes [id number] TAKE 1.5 TABLETS BY MOUTH EVERY MORNING AND 1/2 TABLET AT 2 PM EVERY DAY AND TAKE AN EXTRA TABLET ON SICK DAYS [facility] hydrocortis one 10 mg tablet 2022-0 - 00:00: 00 06-22 00:00 :00 No [id number] TAKE 1.5 TABLETS BY MOUTH EVERY MORNING AND 1/2 TABLET AT 2 PM EVERY DAY AND TAKE AN EXTRA TABLET ON SICK DAYS [facility] hydrocortis one 10 mg tablet 2021-11 00:00: 00 Yes [id number] TAKE 1.5 TABLETS BY MOUTH EVERY MORNING AND 1/2 TABLET AT 2 PM EVERY DAY AND TAKE AN EXTRA TABLET ON SICK DAYS [facility] hydrocortis one 10 mg tablet 2021-11 2 00:00: 00 Yes [id number] TAKE 1.5 TABLETS BY MOUTH EVERY MORNING AND 1/2 TABLET AT 2 PM EVERY DAY AND TAKE AN EXTRA TABLET ON SICK DAYS [facility] hydrocortis one 10 mg tablet 2021-11 00:00: 00 02-23 00:00 :00 No [id number] TAKE 1.5 TABLETS BY MOUTH EVERY MORNING AND 1/2 TABLET AT 2 PM EVERY DAY AND TAKE AN EXTRA TABLET ON SICK DAYS [facility] LEVOTHYROXI NE 25 mcg tablet 2021-11 00:00: 00 Yes [id number] 25ug TAKE 1 TABLET BY MOUTH EVERY MORNING [facility] LEVOTHYROXI NE 25 mcg tablet 2021-11 00:00: 00 Yes [id number] 25ug TAKE 1 TABLET BY MOUTH EVERY MORNING [facility] LEVOTHYROXI NE 25 mcg tablet 2021-11 00:00: 00 Yes [id number] 25ug TAKE 1 TABLET BY MOUTH EVERY MORNING [facility] LEVOTHYROXI NE 25 mcg tablet 2021-11 00:00: 00 Yes [id number] 25ug TAKE 1 TABLET BY MOUTH EVERY MORNING [facility] LEVOTHYROXI NE 25 mcg tablet 2021-11 00:00: 00 Yes [id number] 25ug TAKE 1 TABLET BY MOUTH EVERY MORNING [facility] LEVOTHYROXI NE 25 mcg tablet 2021-11 00:00: 00 Yes [id number] 25ug TAKE 1 TABLET BY MOUTH EVERY MORNING [facility] LEVOTHYROXI NE 25 mcg tablet 2021-11 00:00: 00 Yes [id number] 25ug TAKE 1 TABLET BY MOUTH EVERY MORNING [facility] LEVOTHYROXI NE 25 mcg tablet 2021-11 00:00: 00 03-26 00:00 :00 No [id number] 25ug TAKE 1 TABLET BY MOUTH EVERY MORNING [facility] alendronate 70 mg tablet 07-01 00:00: 00 Yes [id number] 70mg Take 1 tablet by mouth weekly. [facility] fludrocorti sone 0.1 mg tablet 07-01 00:00: 00 Yes [id number] .1mg Take 1 tablet by mouth in the morning. [facility] alendronate 70 mg tablet 07-01 00:00: 00 Yes [id number] 70mg Take 1 tablet by mouth weekly. [facility] fludrocorti sone 0.1 mg tablet 2021-0 07-01 00:00: 00 Yes [id number] .1mg Take 1 tablet by mouth in the morning. [facility] alendronate 70 mg tablet 2021-0 07-01 00:00: 00 Yes [id number] 70mg Take 1 tablet by mouth weekly. [facility] fludrocorti sone 0.1 mg tablet 2021-0 07-01 00:00: 00 Yes [id number] .1mg Take 1 tablet by mouth in the morning. [facility] alendronate 70 mg tablet 2021-0 07-01 00:00: 00 Yes [id number] 70mg Take 1 tablet by mouth weekly. [facility] fludrocorti sone 0.1 mg tablet 2021-0 07-01 00:00: 00 Yes [id number] .1mg Take 1 tablet by mouth in the morning. [facility] alendronate 70 mg tablet 2021-0 07-01 00:00: 00 Yes [id number] 70mg Take 1 tablet by mouth weekly. [facility] fludrocorti sone 0.1 mg tablet 2021-0 07-01 00:00: 00 Yes [id number] .1mg Take 1 tablet by mouth in the morning. [facility] alendronate 70 mg tablet 2021-0 07-01 00:00: 00 Yes [id number] 70mg Take 1 tablet by mouth weekly. [facility] fludrocorti sone 0.1 mg tablet 2021-0 07-01 00:00: 00 Yes [id number] .1mg Take 1 tablet by mouth in the morning. [facility] alendronate 70 mg tablet 2021-0 07-01 00:00: 00 Yes [id number] 70mg Take 1 tablet by mouth weekly. [facility] fludrocorti sone 0.1 mg tablet 2021-0 07-01 00:00: 00 Yes [id number] .1mg Take 1 tablet by mouth in the morning. [facility] alendronate 70 mg tablet 07-01 00:00: 00 Yes [id number] 70mg Take 1 tablet by mouth weekly. [facility] fludrocorti sone 0.1 mg tablet 07-01 00:00: 00 Yes [id number] .1mg Take 1 tablet by mouth in the morning. [facility] fludrocorti sone 0.1 mg tablet 07-01 00:00: 00 Yes [id number] .1mg Take 1 tablet by mouth in the morning. [facility] fludrocorti sone 0.1 mg tablet 07-01 00:00: 00 Yes [id number] .1mg Take 1 tablet by mouth in the morning. [facility] fludrocorti sone 0.1 mg tablet 07-01 00:00: 00 03-26 00:00 :00 No [id number] .1mg Take 1 tablet by mouth in the morning. [facility] alendronate 70 mg tablet 07-01 00:00: 00 03-18 00:00 :00 No [id number] 70mg Take 1 tablet by mouth weekly. [facility] fludrocorti sone 0.1 mg tablet 07-01 00:00: 00 07-01 00:00 :00 No [id number] .2mg Take 2 tablets by mouth in the morning. [facility] LEVOTHYROXI NE 25 mcg tablet 05-10 00:00: 00 Yes [id number] 25ug TAKE 1 TABLET BY MOUTH EVERY MORNING [facility] LEVOTHYROXI NE 25 mcg tablet 0 05-10 00:00: 00 Yes [id number] 25ug TAKE 1 TABLET BY MOUTH EVERY MORNING [facility] LEVOTHYROXI NE 25 mcg tablet 0 05-10 00:00: 00 Yes [id number] 25ug TAKE 1 TABLET BY MOUTH EVERY MORNING [facility] LEVOTHYROXI NE 25 mcg tablet 05-10 00:00: 00 10-20 00:00 :00 No [id number] 25ug TAKE 1 TABLET BY MOUTH EVERY MORNING [facility] hydrocortis one 10 mg tablet 2021-0 05-04 00:00: 00 Yes [id number] TAKE 2 TABLETS BY MOUTH EVERY MORNING AND 1 TABLET AT 2 PM EVERY DAY AND TAKE AN EXTRA TABLET ON SICK DAYS [facility] hydrocortis one 10 mg tablet 0 05-04 00:00: 00 Yes [id number] TAKE 2 TABLETS BY MOUTH EVERY MORNING AND 1 TABLET AT 2 PM EVERY DAY AND TAKE AN EXTRA TABLET ON SICK DAYS [facility] hydrocortis one 10 mg tablet 0 05-04 00:00: 00 Yes [id number] TAKE 2 TABLETS BY MOUTH EVERY MORNING AND 1 TABLET AT 2 PM EVERY DAY AND TAKE AN EXTRA TABLET ON SICK DAYS [facility] hydrocortis one 10 mg tablet 0 05-04 00:00: 00 Yes [id number] TAKE 2 TABLETS BY MOUTH EVERY MORNING AND 1 TABLET AT 2 PM EVERY DAY AND TAKE AN EXTRA TABLET ON SICK DAYS [facility] hydrocortis one 10 mg tablet 0 05-04 00:00: 00 11-02 00:00 :00 No [id number] TAKE 2 TABLETS BY MOUTH EVERY MORNING AND 1 TABLET AT 2 PM EVERY DAY AND TAKE AN EXTRA TABLET ON SICK DAYS [facility] OZEMPIC 0.25 mg or 0.5 mg(2 mg/1.5 mL) PnIj 0 04-14 00:00: 00 Yes [facility] ARIP[facility] mg tablet 0 04-14 00:00: 00 Yes [facility] LINZESS 145 mcg capsule 0 04-14 00:00: 00 Yes [facility] OZEMPIC 0.25 mg or 0.5 mg(2 mg/1.5 mL) PnIj 0 04-14 00:00: 00 Yes [facility] ARIPiprazol e 2 mg tablet 0 04-14 00:00: 00 Yes [facility] LINZESS 145 mcg capsule 0 04-14 00:00: 00 Yes [facility] OZEMPIC 0.25 mg or 0.5 mg(2 mg/1.5 mL) PnIj 2021-0 04-14 00:00: 00 Yes [facility] ARIPiprazol e 2 mg tablet 2021-0 04-14 00:00: 00 Yes [facility] LINZESS 145 mcg capsule 2021-0 04-14 00:00: 00 Yes [facility] OZEMPIC 0.25 mg or 0.5 mg(2 mg/1.5 mL) PnIj 2021-0 04-14 00:00: 00 Yes [facility] ARIPiprazol e 2 mg tablet 2021-0 04-14 00:00: 00 Yes [facility] LINZESS 145 mcg capsule 2021-0 04-14 00:00: 00 Yes [facility] OZEMPIC 0.25 mg or 0.5 mg(2 mg/1.5 mL) PnIj 2021-0 04-14 00:00: 00 Yes [facility] ARIPiprazol e 2 mg tablet 2021-0 04-14 00:00: 00 Yes [facility] LINZESS 145 mcg capsule 2021-0 04-14 00:00: 00 Yes [facility] OZEMPIC 0.25 mg or 0.5 mg(2 mg/1.5 mL) PnIj 2021-0 04-14 00:00: 00 Yes [facility] ARIPiprazol e 2 mg tablet 2021-0 04-14 00:00: 00 Yes [facility] LINZESS 145 mcg capsule 2021-0 04-14 00:00: 00 Yes [facility] OZEMPIC 0.25 mg or 0.5 mg(2 mg/1.5 mL) PnIj 2021-0 04-14 00:00: 00 Yes [facility] ARIPiprazol e 2 mg tablet 2021-0 04-14 00:00: 00 Yes [facility] LINZESS 145 mcg capsule 2021-0 04-14 00:00: 00 Yes [facility] OZEMPIC 0.25 mg or 0.5 mg(2 mg/1.5 mL) PnIj 2021-0 04-14 00:00: 00 Yes [facility] ARIPiprazol e 2 mg tablet 2021-0 04-14 00:00: 00 Yes [facility] LINZESS 145 mcg capsule 2021-0 04-14 00:00: 00 Yes [facility] OZEMPIC 0.25 mg or 0.5 mg(2 mg/1.5 mL) PnIj 2021-0 04-14 00:00: 00 Yes [facility] ARIPiprazol e 2 mg tablet 2021-0 04-14 00:00: 00 Yes [facility] LINZESS 145 mcg capsule 2021-0 04-14 00:00: 00 Yes [facility] OZEMPIC 0.25 mg or 0.5 mg(2 mg/1.5 mL) PnIj 2021-0 04-14 00:00: 00 Yes [facility] ARIPiprazol e 2 mg tablet 2021-0 04-14 00:00: 00 Yes [facility] LINZESS 145 mcg capsule 0 04-14 00:00: 00 Yes [facility] OZEMPIC 0.25 mg or 0.5 mg(2 mg/1.5 mL) PnIj 2021-0 04-14 00:00: 00 Yes [facility] ARIPiprazol e 2 mg tablet 2021-0 04-14 00:00: 00 Yes [facility] LINZESS 145 mcg capsule 2021-0 04-14 00:00: 00 Yes [facility] OZEMPIC 0.25 mg or 0.5 mg(2 mg/1.5 mL) PnIj 2021-0 04-14 00:00: 00 Yes [facility] ARIPiprazol e 2 mg tablet 2021-0 04-14 00:00: 00 Yes [facility] LINZESS 145 mcg capsule 2021-0 04-14 00:00: 00 Yes [facility] OZEMPIC 0.25 mg or 0.5 mg(2 mg/1.5 mL) PnIj 0 04-14 00:00: 00 Yes [facility] ARIPiprazol e 2 mg tablet 2021-0 04-14 00:00: 00 Yes [facility] LINZESS 145 mcg capsule 0 04-14 00:00: 00 Yes [facility] OZEMPIC 0.25 mg or 0.5 mg(2 mg/1.5 mL) PnIj 0 04-14 00:00: 00 Yes [facility] ARIPiprazol e 2 mg tablet 0 04-14 00:00: 00 Yes [facility] LINZESS 145 mcg capsule 0 04-14 00:00: 00 Yes [facility] OZEMPIC 0.25 mg or 0.5 mg(2 mg/1.5 mL) PnIj 0 04-14 00:00: 00 Yes [facility] ARIPiprazol e 2 mg tablet 0 04-14 00:00: 00 Yes [facility] LINZESS 145 mcg capsule 0 04-14 00:00: 00 Yes [facility] OZEMPIC 0.25 mg or 0.5 mg(2 mg/1.5 mL) PnIj 0 04-14 00:00: 00 Yes [facility] ARIPiprazol e 2 mg tablet 0 04-14 00:00: 00 Yes [facility] OZEMPIC 0.25 mg or 0.5 mg(2 mg/1.5 mL) PnIj 0 04-14 00:00: 00 Yes [facility] ARIPiprazol e 2 mg tablet 0 04-14 00:00: 00 Yes [facility] OZEMPIC 0.25 mg or 0.5 mg(2 mg/1.5 mL) PnIj 0 04-14 00:00: 00 Yes [facility] ARIPiprazol e 2 mg tablet 0 04-14 00:00: 00 Yes [facility] OZEMPIC 0.25 mg or 0.5 mg(2 mg/1.5 mL) PnIj 0 04-14 00:00: 00 Yes [facility] ARIPiprazol e 2 mg tablet 0 04-14 00:00: 00 Yes [facility] OZEMPIC 0.25 mg or 0.5 mg(2 mg/1.5 mL) PnIj 0 04-14 00:00: 00 Yes [facility] ARIPiprazol e 2 mg tablet 0 04-14 00:00: 00 Yes [facility] OZEMPIC 0.25 mg or 0.5 mg(2 mg/1.5 mL) PnIj 0 04-14 00:00: 00 Yes [facility] ARIPiprazol e 2 mg tablet 0 04-14 00:00: 00 Yes [facility] OZEMPIC 0.25 mg or 0.5 mg(2 mg/1.5 mL) PnIj 0 04-14 00:00: 00 Yes [facility] ARIPiprazol e 2 mg tablet 0 04-14 00:00: 00 Yes [facility] LINZESS 145 mcg capsule 2021-0 04-14 00:00: 00 09-29 00:00 :00 No [facility] LINZESS 145 mcg capsule 2021-0 04-14 00:00: 00 09-29 00:00 :00 No [facility] LINZESS 145 mcg capsule 2021-0 04-14 00:00: 00 09-29 00:00 :00 No [facility] LINZESS 145 mcg capsule 2021-0 04-14 00:00: 00 09-29 00:00 :00 No [facility] rosuvastati n 10 mg tablet 2020-11 10:28: 48 Yes 10mg Take 10 mg by mouth at bedtime. [facility] rosuvastati n 10 mg tablet 2020-11 10:28: 48 Yes 10mg Take 10 mg by mouth at bedtime. [facility] rosuvastati n 10 mg tablet 2020-11 10:28: 48 Yes 10mg Take 10 mg by mouth at bedtime. [facility] rosuvastati n 10 mg tablet 2020-11 10:28: 48 Yes 10mg Take 10 mg by mouth at bedtime. [facility] rosuvastati n 10 mg tablet 2020-11 10:28: 48 Yes 10mg Take 10 mg by mouth at bedtime. [facility] rosuvastati n 10 mg tablet 2020-11 10:28: 48 Yes 10mg Take 10 mg by mouth at bedtime. [facility] rosuvastati n 10 mg tablet 2020-11 10:28: 48 Yes 10mg Take 10 mg by mouth at bedtime. [facility] rosuvastati n 10 mg tablet 2020-11 10:28: 48 Yes 10mg Take 10 mg by mouth at bedtime. [facility] rosuvastati n 10 mg tablet 2020-11 10:28: 48 Yes 10mg Take 10 mg by mouth at bedtime. [facility] rosuvastati n 10 mg tablet 2020-11 10:28: 48 Yes 10mg Take 10 mg by mouth at bedtime. [facility] rosuvastati n 10 mg tablet 2020-11 10:28: 48 Yes 10mg Take 10 mg by mouth at bedtime. [facility] rosuvastati n 10 mg tablet 2020-11 10:28: 48 Yes 10mg Take 10 mg by mouth at bedtime. [facility] rosuvastati n 10 mg tablet 2020-11 10:28: 48 Yes 10mg Take 10 mg by mouth at bedtime. [facility] rosuvastati n 10 mg tablet 2020-11 10:28: 48 Yes 10mg Take 10 mg by mouth at bedtime. [facility] rosuvastati n 10 mg tablet 2020-11 10:28: 48 Yes 10mg Take 10 mg by mouth at bedtime. [facility] melatonin 10 mg Tab 2020-11 10:28: 00 Yes 10mg Take 10 mg by mouth. [facility] melatonin 10 mg Tab 2020-11 10:28: 00 Yes 10mg Take 10 mg by mouth. [facility] melatonin 10 mg Tab 2020-11 10:28: 00 Yes 10mg Take 10 mg by mouth. [facility] melatonin 10 mg Tab 2020-11 10:28: 00 Yes 10mg Take 10 mg by mouth. [facility] melatonin 10 mg Tab 2020-11 10:28: 00 Yes 10mg Take 10 mg by mouth. [facility] melatonin 10 mg Tab 2020-11 10:28: 00 Yes 10mg Take 10 mg by mouth. [facility] melatonin 10 mg Tab 2020-11 10:28: 00 Yes 10mg Take 10 mg by mouth. [facility] melatonin 10 mg Tab 2020-11 10:28: 00 Yes 10mg Take 10 mg by mouth. [facility] melatonin 10 mg Tab 2020-11 10:28: 00 Yes 10mg Take 10 mg by mouth. [facility] melatonin 10 mg Tab 2020-11 10:28: 00 Yes 10mg Take 10 mg by mouth. [facility] melatonin 10 mg Tab 2020-11 10:28: 00 Yes 10mg Take 10 mg by mouth. [facility] melatonin 10 mg Tab 2020-11 10:28: 00 Yes 10mg Take 10 mg by mouth. [facility] melatonin 10 mg Tab 2020-11 10:28: 00 Yes 10mg Take 10 mg by mouth. [facility] melatonin 10 mg Tab 2020-11 10:28: 00 Yes 10mg Take 10 mg by mouth. [facility] melatonin 10 mg Tab 2020-11 10:28: 00 Yes 10mg Take 10 mg by mouth. [facility] DULoxetine 60 mg capsule 2020-11 10:27: 59 Yes 60mg Take 60 mg by mouth daily. [facility] estradiol 2 mg tablet 2020-11 10:27: 59 Yes 2mg Take 2 mg by mouth daily. [facility] DULoxetine 60 mg capsule 2020-11 10:27: 59 Yes 60mg Take 60 mg by mouth daily. [facility] estradiol 2 mg tablet 2020-11 10:27: 59 Yes 2mg Take 2 mg by mouth daily. [facility] DULoxetine 60 mg capsule 2020-11 10:27: 59 Yes 60mg Take 60 mg by mouth daily. [facility] estradiol 2 mg tablet 2020-11 10:27: 59 Yes 2mg Take 2 mg by mouth daily. [facility] DULoxetine 60 mg capsule 2020-11 10:27: 59 Yes 60mg Take 60 mg by mouth daily. [facility] estradiol 2 mg tablet 2020-11 10:27: 59 Yes 2mg Take 2 mg by mouth daily. [facility] DULoxetine 60 mg capsule 2020-11 10:27: 59 Yes 60mg Take 60 mg by mouth daily. [facility] estradiol 2 mg tablet 2020-11 10:27: 59 Yes 2mg Take 2 mg by mouth daily. [facility] DULoxetine 60 mg capsule 2020-11 10:27: 59 Yes 60mg Take 60 mg by mouth daily. [facility] estradiol 2 mg tablet 2020-11 10:27: 59 Yes 2mg Take 2 mg by mouth daily. [facility] DULoxetine 60 mg capsule 2020-11 10:27: 59 Yes 60mg Take 60 mg by mouth daily. [facility] estradiol 2 mg tablet 2020-11 10:27: 59 Yes 2mg Take 2 mg by mouth daily. [facility] DULoxetine 60 mg capsule 2020-11 10:27: 59 Yes 60mg Take 60 mg by mouth daily. [facility] estradiol 2 mg tablet 2020-11 10:27: 59 Yes 2mg Take 2 mg by mouth daily. [facility] DULoxetine 60 mg capsule 2020-11 10:27: 59 Yes 60mg Take 60 mg by mouth daily. [facility] estradiol 2 mg tablet 2020-11 10:27: 59 Yes 2mg Take 2 mg by mouth daily. [facility] DULoxetine 60 mg capsule 2020-11 10:27: 59 Yes 60mg Take 60 mg by mouth daily. [facility] estradiol 2 mg tablet 2020-11 10:27: 59 Yes 2mg Take 2 mg by mouth daily. [facility] DULoxetine 60 mg capsule 2020-11 10:27: 59 Yes 60mg Take 60 mg by mouth daily. [facility] estradiol 2 mg tablet 2020-11 10:27: 59 Yes 2mg Take 2 mg by mouth daily. [facility] DULoxetine 60 mg capsule 2020-11 10:27: 59 Yes 60mg Take 60 mg by mouth daily. [facility] estradiol 2 mg tablet 2020-11 10:27: 59 Yes 2mg Take 2 mg by mouth daily. [facility] DULoxetine 60 mg capsule 2020-11 10:27: 59 Yes 60mg Take 60 mg by mouth daily. [facility] estradiol 2 mg tablet 2020-11 10:27: 59 Yes 2mg Take 2 mg by mouth daily. [facility] DULoxetine 60 mg capsule 2020-11 10:27: 59 Yes 60mg Take 60 mg by mouth daily. [facility] estradiol 2 mg tablet 2020-11 10:27: 59 Yes 2mg Take 2 mg by mouth daily. [facility] DULoxetine 60 mg capsule 2020-11 10:27: 59 Yes 60mg Take 60 mg by mouth daily. [facility] estradiol 2 mg tablet 2020-11 10:27: 59 Yes 2mg Take 2 mg by mouth daily. [facility] BABY ASPIRIN ORAL 2020-11 10:27: 58 Yes 81mg Take 81 mg by mouth. [facility] clonazePAM 2 mg tablet 2020-11 10:27: 58 Yes 2mg Take 2 mg by mouth 3 (three) times daily. [facility] BABY ASPIRIN ORAL 2020-11 10:27: 58 Yes 81mg Take 81 mg by mouth. [facility] clonazePAM 2 mg tablet 2020-11 10:27: 58 Yes 2mg Take 2 mg by mouth 3 (three) times daily. [facility] BABY ASPIRIN ORAL 2020-11 10:27: 58 Yes 81mg Take 81 mg by mouth. [facility] clonazePAM 2 mg tablet 2020-11 10:27: 58 Yes 2mg Take 2 mg by mouth 3 (three) times daily. [facility] BABY ASPIRIN ORAL 2020-11 10:27: 58 Yes 81mg Take 81 mg by mouth. [facility] clonazePAM 2 mg tablet 2020-11 10:27: 58 Yes 2mg Take 2 mg by mouth 3 (three) times daily. [facility] BABY ASPIRIN ORAL 2020-11 10:27: 58 Yes 81mg Take 81 mg by mouth. [facility] clonazePAM 2 mg tablet 2020-11 10:27: 58 Yes 2mg Take 2 mg by mouth 3 (three) times daily. [facility] BABY ASPIRIN ORAL 2020-11 10:27: 58 Yes 81mg Take 81 mg by mouth. [facility] clonazePAM 2 mg tablet 2020-11 10:27: 58 Yes 2mg Take 2 mg by mouth 3 (three) times daily. [facility] BABY ASPIRIN ORAL 2020-11 10:27: 58 Yes 81mg Take 81 mg by mouth. [facility] clonazePAM 2 mg tablet 2020-11 10:27: 58 Yes 2mg Take 2 mg by mouth 3 (three) times daily. [facility] BABY ASPIRIN ORAL 2020-11 10:27: 58 Yes 81mg Take 81 mg by mouth. [facility] clonazePAM 2 mg tablet 2020-11 10:27: 58 Yes 2mg Take 2 mg by mouth 3 (three) times daily. [facility] BABY ASPIRIN ORAL 2020-11 10:27: 58 Yes 81mg Take 81 mg by mouth. [facility] clonazePAM 2 mg tablet 2020-11 10:27: 58 Yes 2mg Take 2 mg by mouth 3 (three) times daily. [facility] BABY ASPIRIN ORAL 2020-11 10:27: 58 Yes 81mg Take 81 mg by mouth. [facility] clonazePAM 2 mg tablet 2020-11 10:27: 58 Yes 2mg Take 2 mg by mouth 3 (three) times daily. [facility] BABY ASPIRIN ORAL 2020-11 10:27: 58 Yes 81mg Take 81 mg by mouth. [facility] clonazePAM 2 mg tablet 2020-11 10:27: 58 Yes 2mg Take 2 mg by mouth 3 (three) times daily. [facility] BABY ASPIRIN ORAL 2020-11 10:27: 58 Yes 81mg Take 81 mg by mouth. [facility] clonazePAM 2 mg tablet 2020-11 10:27: 58 Yes 2mg Take 2 mg by mouth 3 (three) times daily. [facility] BABY ASPIRIN ORAL 2020-11 10:27: 58 Yes 81mg Take 81 mg by mouth. [facility] clonazePAM 2 mg tablet 2020-11 10:27: 58 Yes 2mg Take 2 mg by mouth 3 (three) times daily. [facility] BABY ASPIRIN ORAL 2020-11 10:27: 58 Yes 81mg Take 81 mg by mouth. [facility] clonazePAM 2 mg tablet 2020-11 10:27: 58 Yes 2mg Take 2 mg by mouth 3 (three) times daily. [facility] BABY ASPIRIN ORAL 2020-11 10:27: 58 Yes 81mg Take 81 mg by mouth. [facility] clonazePAM 2 mg tablet 2020-11 10:27: 58 Yes 2mg Take 2 mg by mouth 3 (three) times daily. [facility] metoprolol tartrate 37.5 mg Tab 2020-11 00:00: 00 Yes 37.5mg Take 37.5 mg by mouth daily. [facility] metoprolol tartrate 37.5 mg Tab 2020-11 00:00: 00 Yes 37.5mg Take 37.5 mg by mouth daily. [facility] metoprolol tartrate 37.5 mg Tab 2020-11 00:00: 00 Yes 37.5mg Take 37.5 mg by mouth daily. [facility] metoprolol tartrate 37.5 mg Tab 2020-11 00:00: 00 Yes 37.5mg Take 37.5 mg by mouth daily. [facility] metoprolol tartrate 37.5 mg Tab 2020-11 00:00: 00 Yes 37.5mg Take 37.5 mg by mouth daily. [facility] metoprolol tartrate 37.5 mg Tab 2020-11 00:00: 00 Yes 37.5mg Take 37.5 mg by mouth daily. [facility] metoprolol tartrate 37.5 mg Tab 2020-11 00:00: 00 Yes 37.5mg Take 37.5 mg by mouth daily. [facility] metoprolol tartrate 37.5 mg Tab 2020-11 00:00: 00 Yes 37.5mg Take 37.5 mg by mouth daily. [facility] metoprolol tartrate 37.5 mg Tab 2020-11 00:00: 00 Yes 37.5mg Take 37.5 mg by mouth daily. [facility] metoprolol tartrate 37.5 mg Tab 2020-11 00:00: 00 Yes 37.5mg Take 37.5 mg by mouth daily. [facility] metoprolol tartrate 37.5 mg Tab 2020-11 00:00: 00 Yes 37.5mg Take 37.5 mg by mouth daily. [facility] metoprolol tartrate 37.5 mg Tab 2020-11 00:00: 00 Yes 37.5mg Take 37.5 mg by mouth daily. [facility] metoprolol tartrate 37.5 mg Tab 2020-11 00:00: 00 Yes 37.5mg Take 37.5 mg by mouth daily. [facility] metoprolol tartrate 37.5 mg Tab 2020-11 00:00: 00 Yes 37.5mg Take 37.5 mg by mouth daily. [facility] metoprolol tartrate 37.5 mg Tab 2020-11 00:00: 00 Yes 37.5mg Take 37.5 mg by mouth daily. [facility] metoprolol tartrate 37.5 mg Tab 2020-11 00:00: 00 Yes 37.5mg Take 37.5 mg by mouth daily. [facility] metoprolol tartrate 37.5 mg Tab 2020-11 00:00: 00 Yes 37.5mg Take 37.5 mg by mouth daily. [facility] metoprolol tartrate 37.5 mg Tab 2020-11 00:00: 00 Yes 37.5mg Take 37.5 mg by mouth daily. [facility] metoprolol tartrate 37.5 mg Tab 2020-11 00:00: 00 Yes 37.5mg Take 37.5 mg by mouth daily. [facility] metoprolol tartrate 37.5 mg Tab 2020-11 00:00: 00 Yes 37.5mg Take 37.5 mg by mouth daily. [facility] metoprolol tartrate 37.5 mg Tab 2020-11 00:00: 00 Yes 37.5mg Take 37.5 mg by mouth daily. [facility] metoprolol tartrate 37.5 mg Tab 2020-11 00:00: 00 Yes 37.5mg Take 37.5 mg by mouth daily. [facility] ALENDRONATE 70 mg tablet 2020-11 00:00: 00 07-01 00:00 :00 No [id number] 70mg TAKE 1 TABLET BY MOUTH WEEKLY [facility] Oxycodone 10 mg Tab 2018-0 12-31 00:00: 00 Yes [facility] Oxycodone 10 mg Tab 2018-0 12-31 00:00: 00 Yes [facility] Oxycodone 10 mg Tab 2018-0 12-31 00:00: 00 Yes [facility] Oxycodone 10 mg Tab 2018-0 12-31 00:00: 00 Yes [facility] Oxycodone 10 mg Tab 2017-0 12-31 00:00: 00 Yes [facility] Oxycodone 10 mg Tab 2018-0 12-31 00:00: 00 Yes [facility] Oxycodone 10 mg Tab 2018-0 12-31 00:00: 00 Yes [facility] Oxycodone 10 mg Tab 0 12-31 00:00: 00 Yes [facility] Oxycodone 10 mg Tab 2018-0 12-31 00:00: 00 Yes [facility] Oxycodone 10 mg Tab 2017-0 12-31 00:00: 00 Yes [facility] Oxycodone 10 mg Tab 2017-0 12-31 00:00: 00 Yes [facility] Oxycodone 10 mg Tab 2017-0 12-31 00:00: 00 Yes [facility] Oxycodone 10 mg Tab 2017-0 12-31 00:00: 00 Yes [facility] Oxycodone 10 mg Tab 2018-0 12-31 00:00: 00 Yes [facility] Oxycodone 10 mg Tab 2018-0 2 00:00: 00 Yes [facility] Oxycodone 10 mg Tab 2018-0 2 00:00: 00 Yes [facility] Oxycodone 10 mg Tab 2018-0 2 00:00: 00 Yes [facility] Oxycodone 10 mg Tab 2018-0 2 00:00: 00 Yes [facility] Oxycodone 10 mg Tab 2018-0 2-08 00:00: 00 Yes [facility] Oxycodone 10 mg Tab 2017-0 2-08 00:00: 00 Yes [facility] Oxycodone 10 mg Tab 2017-0 2-08 00:00: 00 Yes [facility] Oxycodone 10 mg Tab 2017-0 208 00:00: 00 Yes [facility] zaleplon 5 mg capsule 0 - 00:00: 00 Yes [facility] zaleplon 5 mg capsule 0 12-03 00:00: 00 Yes [facility] zaleplon 5 mg capsule 0 12-03 00:00: 00 Yes [facility] zaleplon 5 mg capsule 0 12-03 00:00: 00 Yes [facility] zaleplon 5 mg capsule 0 12-03 00:00: 00 Yes [facility] zaleplon 5 mg capsule 0 12-03 00:00: 00 Yes [facility] zaleplon 5 mg capsule 0 12-03 00:00: 00 Yes [facility] zaleplon 5 mg capsule 0 12-03 00:00: 00 Yes [facility] zaleplon 5 mg capsule 0 12-03 00:00: 00 Yes [facility] zaleplon 5 mg capsule 0 12-03 00:00: 00 Yes [facility] zaleplon 5 mg capsule 0 12-03 00:00: 00 Yes [facility] zaleplon 5 mg capsule 0 12-03 00:00: 00 Yes [facility] zaleplon 5 mg capsule 0 12-03 00:00: 00 Yes [facility] zaleplon 5 mg capsule 0 12-03 00:00: 00 Yes [facility] zaleplon 5 mg capsule 0 12-03 00:00: 00 Yes [facility] zaleplon 5 mg capsule 2018-0 1-11 00:00: 00 Yes [facility] zaleplon 5 mg capsule 12-03 00:00: 00 Yes [facility] zaleplon 5 mg capsule 12-03 00:00: 00 Yes [facility] zaleplon 5 mg capsule 12-03 00:00: 00 Yes [facility] zaleplon 5 mg capsule 12-03 00:00: 00 Yes [facility] zaleplon 5 mg capsule 12-03 00:00: 00 Yes [facility] zaleplon 5 mg capsule 12-03 00:00: 00 Yes [facility] amitriptyli ne 100 mg tablet 05-23 00:00: 00 Yes 200mg Take 200 mg by mouth at bedtime. [facility] amitriptyli ne 100 mg tablet 05-23 00:00: 00 Yes 200mg Take 200 mg by mouth at bedtime. [facility] amitriptyli ne 100 mg tablet 05-23 00:00: 00 Yes 200mg Take 200 mg by mouth at bedtime. [facility] amitriptyli ne 100 mg tablet 05-23 00:00: 00 Yes 200mg Take 200 mg by mouth at bedtime. [facility] amitriptyli ne 100 mg tablet 05-23 00:00: 00 Yes 200mg Take 200 mg by mouth at bedtime. [facility] amitriptyli ne 100 mg tablet 05-23 00:00: 00 Yes 200mg Take 200 mg by mouth at bedtime. [facility] amitriptyli ne 100 mg tablet 05-23 00:00: 00 Yes 200mg Take 200 mg by mouth at bedtime. [facility] amitriptyli ne 100 mg tablet 05-23 00:00: 00 Yes 200mg Take 200 mg by mouth at bedtime. [facility] amitriptyli ne 100 mg tablet 05-23 00:00: 00 Yes 200mg Take 200 mg by mouth at bedtime. [facility] amitriptyli ne 100 mg tablet 05-23 00:00: 00 Yes 200mg Take 200 mg by mouth at bedtime. [facility] amitriptyli ne 100 mg tablet 05-23 00:00: 00 Yes 200mg Take 200 mg by mouth at bedtime. [facility] amitriptyli ne 100 mg tablet 05-23 00:00: 00 Yes 200mg Take 200 mg by mouth at bedtime. [facility] amitriptyli ne 100 mg tablet 05-23 00:00: 00 Yes 200mg Take 200 mg by mouth at bedtime. [facility] amitriptyli ne 100 mg tablet 05-23 00:00: 00 Yes 200mg Take 200 mg by mouth at bedtime. [facility] amitriptyli ne 100 mg tablet 05-23 00:00: 00 Yes 200mg Take 200 mg by mouth at bedtime. [facility] amitriptyli ne 100 mg tablet 05-23 00:00: 00 Yes 200mg Take 2 tablets by mouth at bedtime. [facility] amitriptyli ne 100 mg tablet 05-23 00:00: 00 Yes 200mg Take 2 tablets by mouth at bedtime. [facility] amitriptyli ne 100 mg tablet 05-23 00:00: 00 Yes 200mg Take 2 tablets by mouth at bedtime. [facility] amitriptyli ne 100 mg tablet 05-23 00:00: 00 Yes 200mg Take 2 tablets by mouth at bedtime. [facility] amitriptyli ne 100 mg tablet 05-23 00:00: 00 Yes 200mg Take 2 tablets by mouth at bedtime. [facility] amitriptyli ne 100 mg tablet 05-23 00:00: 00 Yes 200mg Take 2 tablets by mouth at bedtime. [facility] amitriptyli ne 100 mg tablet 05-23 00:00: 00 Yes 200mg Take 2 tablets by mouth at bedtime. [facility] omeprazole 20 mg capsule 05-07 00:00: 00 Yes 20mg Take 20 mg by mouth daily. [facility] omeprazole 20 mg capsule 05-07 00:00: 00 Yes 20mg Take 20 mg by mouth daily. [facility] omeprazole 20 mg capsule 05-07 00:00: 00 Yes 20mg Take 20 mg by mouth daily. [facility] omeprazole 20 mg capsule 05-07 00:00: 00 Yes 20mg Take 20 mg by mouth daily. [facility] omeprazole 20 mg capsule 05-07 00:00: 00 Yes 20mg Take 20 mg by mouth daily. [facility] omeprazole 20 mg capsule 05-07 00:00: 00 Yes 20mg Take 20 mg by mouth daily. [facility] omeprazole 20 mg capsule 05-07 00:00: 00 Yes 20mg Take 20 mg by mouth daily. [facility] omeprazole 20 mg capsule 05-07 00:00: 00 Yes 20mg Take 20 mg by mouth daily. [facility] omeprazole 20 mg capsule 05-07 00:00: 00 Yes 20mg Take 20 mg by mouth daily. [facility] omeprazole 20 mg capsule 05-07 00:00: 00 Yes 20mg Take 20 mg by mouth daily. [facility] omeprazole 20 mg capsule 05-07 00:00: 00 Yes 20mg Take 20 mg by mouth daily. [facility] omeprazole 20 mg capsule 05-07 00:00: 00 Yes 20mg Take 20 mg by mouth daily. [facility] omeprazole 20 mg capsule 05-07 00:00: 00 Yes 20mg Take 20 mg by mouth daily. [facility] omeprazole 20 mg capsule 05-07 00:00: 00 Yes 20mg Take 20 mg by mouth daily. [facility] omeprazole 20 mg capsule 05-07 00:00: 00 Yes 20mg Take 20 mg by mouth daily. [facility] omeprazole 20 mg capsule 05-07 00:00: 00 Yes 20mg Take 1 capsule by mouth in the morning. [facility] omeprazole 20 mg capsule 05-07 00:00: 00 Yes 20mg Take 1 capsule by mouth in the morning. [facility] omeprazole 20 mg capsule 05-07 00:00: 00 Yes 20mg Take 1 capsule by mouth in the morning. [facility] omeprazole 20 mg capsule 05-07 00:00: 00 Yes 20mg Take 1 capsule by mouth in the morning. [facility] omeprazole 20 mg capsule 05-07 00:00: 00 Yes 20mg Take 1 capsule by mouth in the morning. [facility] omeprazole 20 mg capsule 05-07 00:00: 00 Yes 20mg Take 1 capsule by mouth in the morning. [facility] omeprazole 20 mg capsule 05-07 00:00: 00 Yes 20mg Take 1 capsule by mouth in the morning. [facility] ALPRAZolam 1 mg tablet 03-17 00:00: 00 Yes 1mg Take 1 mg by mouth daily. [facility] ALPRAZolam 1 mg tablet 03-17 00:00: 00 Yes 1mg Take 1 mg by mouth daily. [facility] ALPRAZolam 1 mg tablet 03-17 00:00: 00 Yes 1mg Take 1 mg by mouth daily. [facility] ALPRAZolam 1 mg tablet 03-17 00:00: 00 Yes 1mg Take 1 mg by mouth daily. [facility] ALPRAZolam 1 mg tablet 03-17 00:00: 00 Yes 1mg Take 1 mg by mouth daily. [facility] ALPRAZolam 1 mg tablet 03-17 00:00: 00 Yes 1mg Take 1 mg by mouth daily. [facility] ALPRAZolam 1 mg tablet 03-17 00:00: 00 Yes 1mg Take 1 mg by mouth daily. [facility] 03-17 00:00: 00 Yes 1mg Take 1 mg by mouth daily. [facility] ALPRAZolam 1 mg tablet 03-17 00:00: 00 Yes 1mg Take 1 mg by mouth daily. [facility] ALPR[facility]am 1 mg tablet 03-17 00:00: 00 Yes 1mg Take 1 mg by mouth daily. [facility] AL[facility] mg tablet 03-17 00:00: 00 Yes 1mg Take 1 mg by mouth daily. [facility] ALPRAZolam 1 mg tablet 03-17 00:00: 00 Yes 1mg Take 1 mg by mouth daily. [facility] ALPRAZolam 1 mg tablet 03-17 00:00: 00 Yes 1mg Take 1 mg by mouth daily. [facility] ALPRAZolam 1 mg tablet 03-17 00:00: 00 Yes 1mg Take 1 mg by mouth daily. [facility] ALPRAZolam 1 mg tablet 03-17 00:00: 00 Yes 1mg Take 1 mg by mouth daily. [facility] ALPRAZolam 1 mg tablet 03-17 00:00: 00 Yes 1mg Take 1 tablet by mouth in the morning. [facility] ALPRAZolam 1 mg tablet 03-17 00:00: 00 Yes 1mg Take 1 tablet by mouth in the morning. [facility] ALPRAZolam 1 mg tablet 03-17 00:00: 00 Yes 1mg Take 1 tablet by mouth in the morning. [facility] ALPRAZolam 1 mg tablet 03-17 00:00: 00 Yes 1mg Take 1 tablet by mouth in the morning. [facility] ALPRAZolam 1 mg tablet 03-17 00:00: 00 Yes 1mg Take 1 tablet by mouth in the morning. [facility] ALPRAZolam 1 mg tablet 03-17 00:00: 00 Yes 1mg Take 1 tablet by mouth in the morning. [facility] ALPRAZolam 1 mg tablet 03-17 00:00: 00 Yes 1mg Take 1 tablet by mouth in the morning. [facility] Immunizations Ordered Immunization Name Filled Immunization Name Date Status Comments Source SARS-COV-2 COVID-19 PFIZER VACCINE 2021-02-04 00:00:00 Completed [facility] SARS-COV-2 COVID-19 PFIZER VACCINE 2021-02-04 00:00:00 Completed [facility] SARS-COV-2 COVID-19 PFIZER VACCINE 2021-02-04 00:00:00 Completed [facility] SARS-COV-2 COVID-19 PFIZER VACCINE 2021-02-04 00:00:00 Completed [facility] SARS-COV-2 COVID-19 PFIZER VACCINE 2021-02-04 00:00:00 Completed [facility] SARS-COV-2 COVID-19 PFIZER VACCINE 2021-02-04 00:00:00 Completed [facility] SARS-COV-2 COVID-19 PFIZER VACCINE 2021-02-04 00:00:00 Completed [facility] SARS-COV-2 COVID-19 PFIZER VACCINE 2021-02-04 00:00:00 Completed [facility] SARS-COV-2 COVID-19 PFIZER VACCINE 2021-02-04 00:00:00 Completed [facility] SARS-COV-2 COVID-19 PFIZER VACCINE 2021-02-04 00:00:00 Completed [facility] SARS-COV-2 COVID-19 PFIZER VACCINE 2021-02-04 00:00:00 Completed [facility] SARS-COV-2 COVID-19 PFIZER VACCINE 2021-02-04 00:00:00 Completed [facility] SARS-COV-2 COVID-19 PFIZER VACCINE 2021-02-04 00:00:00 Completed [facility] SARS-COV-2 COVID-19 PFIZER VACCINE 2021-02-04 00:00:00 Completed [facility] SARS-COV-2 COVID-19 PFIZER VACCINE 2021-01-14 00:00:00 Completed [facility] SARS-COV-2 COVID-19 PFIZER VACCINE 2021-01-14 00:00:00 Completed [facility] SARS-COV-2 COVID-19 PFIZER VACCINE 2021-01-14 00:00:00 Completed [facility] SARS-COV-2 COVID-19 PFIZER VACCINE 2021-01-14 00:00:00 Completed [facility] SARS-COV-2 COVID-19 PFIZER VACCINE 2021-01-14 00:00:00 Completed [facility] SARS-COV-2 COVID-19 PFIZER VACCINE 2021-01-14 00:00:00 Completed [facility] SARS-COV-2 COVID-19 PFIZER VACCINE 2021-01-14 00:00:00 Completed [facility] SARS-COV-2 COVID-19 PFIZER VACCINE 2021-01-14 00:00:00 Completed [facility] SARS-COV-2 COVID-19 PFIZER VACCINE 2021-01-14 00:00:00 Completed [facility] SARS-COV-2 COVID-19 PFIZER VACCINE 2021-01-14 00:00:00 Completed [facility] SARS-COV-2 COVID-19 PFIZER VACCINE 2021-01-14 00:00:00 Completed [facility] SARS-COV-2 COVID-19 PFIZER VACCINE 2021-01-14 00:00:00 Completed [facility] SARS-COV-2 COVID-19 PFIZER VACCINE 2021-01-14 00:00:00 Completed [facility] SARS-COV-2 COVID-19 PFIZER VACCINE 2021-01-14 00:00:00 Completed [facility] Influenza Virus Vaccine Quad IM 3+ YRS 2018-01-12 00:00:00 Completed [facility] Influenza Virus Vaccine Quad IM 3+ YRS 2018-01-12 00:00:00 Completed [facility] Influenza Virus Vaccine Quad IM 3+ YRS 2018-01-12 00:00:00 Completed [facility] Influenza Virus Vaccine Quad IM 3+ YRS 2018-01-12 00:00:00 Completed [facility] Influenza Virus Vaccine Quad IM 3+ YRS 2018-01-12 00:00:00 Completed [facility] Influenza Virus Vaccine Quad IM 3+ YRS 2018-01-12 00:00:00 Completed [facility] Influenza Virus Vaccine Quad IM 3+ YRS 2018-01-12 00:00:00 Completed [facility] Influenza Virus Vaccine Quad IM 3+ YRS 2018-01-12 00:00:00 Completed [facility] Influenza Virus Vaccine Quad IM 3+ YRS 2018-01-12 00:00:00 Completed [facility] Influenza Virus Vaccine Quad IM 3+ YRS 2018-01-12 00:00:00 Completed [facility] Influenza Virus Vaccine Quad IM 3+ YRS 2018-01-12 00:00:00 Completed [facility] Influenza Virus Vaccine Quad IM 3+ YRS 2018-01-12 00:00:00 Completed [facility] Influenza Virus Vaccine Quad IM 3+ YRS 2018-01-12 00:00:00 Completed [facility] Influenza Virus Vaccine Quad IM 3+ YRS 2018-01-12 00:00:00 Completed [facility] Influenza Virus Vaccine Quad IM 3+ YRS Unknown Completed [facility] SARS-COV-2 COVID-19 PFIZER VACCINE Unknown Completed [facility] SARS-COV-2 COVID-19 PFIZER VACCINE Unknown Completed [facility] Influenza Virus Vaccine Quad IM 3+ YRS Unknown Completed [facility] SARS-COV-2 COVID-19 PFIZER VACCINE Unknown Completed [facility] SARS-COV-2 COVID-19 PFIZER VACCINE Unknown Completed [facility] Influenza Virus Vaccine Quad IM 3+ YRS Unknown Completed [facility] SARS-COV-2 COVID-19 PFIZER VACCINE Unknown Completed [facility] SARS-COV-2 COVID-19 PFIZER VACCINE Unknown Completed [facility] Influenza Virus Vaccine Quad IM 3+ YRS Unknown Completed [facility] SARS-COV-2 COVID-19 PFIZER VACCINE Unknown Completed [facility] SARS-COV-2 COVID-19 PFIZER VACCINE Unknown Completed [facility] Influenza Virus Vaccine Quad IM 3+ YRS Unknown Completed [facility] SARS-COV-2 COVID-19 PFIZER VACCINE Unknown Completed [facility] SARS-COV-2 COVID-19 PFIZER VACCINE Unknown Completed [facility] Influenza Virus Vaccine Quad IM 3+ YRS Unknown Completed [facility] SARS-COV-2 COVID-19 PFIZER VACCINE Unknown Completed [facility] SARS-COV-2 COVID-19 PFIZER VACCINE Unknown Completed [facility] Influenza Virus Vaccine Quad IM 3+ YRS Unknown Completed [facility] SARS-COV-2 COVID-19 PFIZER VACCINE Unknown Completed [facility] SARS-COV-2 COVID-19 PFIZER VACCINE Unknown Completed [facility] Influenza Virus Vaccine Quad IM 3+ YRS Unknown Completed [facility] SARS-COV-2 COVID-19 PFIZER VACCINE Unknown Completed [facility] SARS-COV-2 COVID-19 PFIZER VACCINE Unknown Completed [facility] Vital Signs Vital Name Observation Time Observation Value Comments S ource Systolic blood pressure 2023-09-29 19:09:00 136 mm[Hg] [facility] Diastolic blood pressure 2023-09-29 19:09:00 70 mm[Hg] [facility] Heart rate 2023-09-29 19:09:00 66 /min [facility] Body temperature 2023-09-29 19:09:00 36.5 Harriet [facility] Body height 2023-09-29 19:09:00 157.5 cm [facility] Body weight 2023-09-29 19:09:00 75.342 kg [facility] BMI 2023-09-29 19:09:00 30.38 kg/m2 [facility] Oxygen saturation in Arterial blood by Pulse oximetry 2023-09-29 19:09:00 97 /min [facility] Systolic blood pressure 2023-09-08 14:13:00 141 mm[Hg] [facility] Diastolic blood pressure 2023-09-08 14:13:00 84 mm[Hg] [facility] Heart rate 2023-09-08 14:13:00 82 /min [facility] Body height 2023-09-08 14:13:00 157.5 cm [facility] Body weight 2023-09-08 14:13:00 77.52 kg [facility] BMI 2023-09-08 14:13:00 31.26 kg/m2 [facility] Oxygen saturation in Arterial blood by Pulse oximetry 2023-09-08 14:13:00 95 /min [facility] Systolic blood pressure 2022-07-01 15:16:00 139 mm[Hg] [facility] Diastolic blood pressure 2022-07-01 15:16:00 65 mm[Hg] [facility] Heart rate 2022-07-01 15:16:00 82 /min [facility] Body height 2022-07-01 15:16:00 157.5 cm [facility] Body weight 2022-07-01 15:16:00 81.874 kg [facility] BMI 2022-07-01 15:16:00 33.01 kg/m2 [facility] Oxygen saturation in Arterial blood by Pulse oximetry 2022-07-01 15:16:00 94 /min [facility] Procedures Procedure Date / Time Performed Performing Clinician Source ASSIGNMENT OF BENEFITS 2023-03-26 16:20:55 Docto r Unassigned, [place] [facility] PATIENT QUESTIONNAIRE 2022-07-01 05:01:00 Doctor Unassigned, [place] [facility] Encounters Start Date/Time End Date/Time Encounter Type Admission Type Attending Clinicians Care Facility Care Department Encounter ID Source 2022-06-17 16:29:12 Outpatient [facility] [id number] [facility] 2022-06-05 09:43:10 Outpatient [facility] [id number] [facility] 2022-03-01 21:32:02 Outpatient [facility] [id number] [facility] 2024-03-08 13:00:00 2024-03-08 13:00:00 Outpatient LIZBETH CANCHOLA [facility] [id number] [facility] 2023-10-30 00:00:00 2023-10-30 00:00:00 Layla Lee [facility] [id number] 350.1.13.10 4.2.7.2.686 [id number] [facility] 2023-10-30 00:00:00 2023-10-30 00:00:00 [facility] 1..840.114 350.1.13.10 4.2.7.2.686 [id number] [facility] 2023-09-29 13:43:28 2023-09-29 23:59:00 Outpatient R [facility] [id number] [facility] 2023-09-29 13:43:28 2023-09-29 23:59:00 Hospital Encounter [facility] 1.840.114 350.1.13.10 4.2.7.2.686 [id number] [facility] 2023-09-29 13:00:00 2023-09-29 13:43:18 [facility] 1.840.114 350.1.13.10 4.2.7.2.686 [id number] [facility] 2023-09-18 13:00:00 2023-09-18 13:00:00 Outpatient R JERONIMO MANZANO [facility] [id number] [facility] 2023-09-08 10:00:00 2023-09-08 10:15:00 Brush Cleaner Visit Lab, [facility] 1..840.114 350.1.13.10 4.2.7.2.686 [id number] [facility] 2023-09-08 09:00:00 2023-09-08 09:55:46 Outpatient R RONALD [facility] [id number] [facility] 2023-09-08 09:00:00 2023-09-08 09:55:46 [facility] 1..840.114 350.1.13.10 4.2.7.2.686 [id number] [facility] 2023-06-22 00:00:00 2023-06-22 00:00:00 Telephone Ronald [facility] [place]?[facility] 1.2840.114 350.1.13.10 4.2.7.2.686 [id number] [facility] 2023-05-08 00:00:00 2023-05-08 00:00:00 [facility] 1.20.114 350.1.13.10 4.2.7.2.686 [id number] [facility] 2023-03-26 11:31:37 2023-03-26 23:59:00 Outpatient R RADIOLOGY [facility] [id number] [facility] 2023-03-26 11:20:00 2023-03-26 23:59:00 Hospital Encounter Radiology [facility] 1.0.114 350.1.13.10 4.2.7.2.686 [id number] [facility] 2023-03-26 00:00:00 2023-03-26 00:00:00 Orders Only Doctor Unassigned, Cher[place] [facility] 1.2840.114 350.1.13.10 4.2.7.2.686 [id number] [facility] 2023-03-26 00:00:00 2023-03-26 00:00:00 Refill [facility] [facility] 1.2840.114 350.1.13.10 4.2.7.2.686 [id number] 220 [id number] [facility] 2023-03-18 00:00:00 2023-03-18 00:00:00 Refill Ronald [facility] CULLEN?[facility] 1.2840.114 350.1.13.10 4.2.7.2.686 [id number] 220 [id number] [facility] 2023-02-25 00:00:00 2023-02-25 00:00:00 [facility]phone [facility] 1.2840.114 350.1.13.10 4.2.7.2.686 [id number] 220 [id number] [facility] 2023-02-23 00:00:00 2023-02-23 00:00:00 Telephone Ronald [facility] CULLEN?[facility] 1.2.840.114 350.1.13.10 4.2.7.2.686 [id number] 220 [id number] [facility] 2023-02-14 00:00:00 2023-02-14 00:00:00 Refill Ronald [facility] CULLEN?[facility] 1.2840.114 350.1.13.10 4.2.7.2.686 [id number] 220 [id number] [facility] 2023-01-06 10:00:00 2023-01-06 10:00:00 Outpatient R RONALD [facility] [id number] [facility] 2022-11-02 00:00:00 2022-11-02 00:00:00 Refill Simón [facility] CULLEN?[facility] 1.2840.114 350.1.13.10 4.2.7.2.686 [id number] 220 [id number] [facility] 2022-10-20 00:00:00 2022-10-20 00:00:00 [facility] 1.2840.114 350.1.13.10 4.2.7.2.686 [id number] 220 [id number] [facility] 2022-07-15 00:00:00 2022-07-15 00:00:00 Telephone Ronald [facility] CULLEN?[facility] 1.84.114 350.1.13.10 4.2.7.2.686 [id number] 220 [id number] [facility] 2022-07-01 11:45:00 2022-07-01 12:00:00 Brush Cleaner Visit Lab, Ang - Db [facility] 1.84.114 350.1.13.10 4.2.7.2.686 [id number] [facility] 2022-07-01 10:30:00 2022-07-01 11:40:18 Outpatient R RONALD [facility] [id number] [facility] 2022-07-01 10:30:00 2022-07-01 11:40:18 Office Visit Ronald [facility] 1.84.114 350.1.13.10 4.2.7.2.686 [id number] 220 [id number] [facility] 2022-07-01 00:00:00 2022-07-01 00:00:00 Orders Only Doctor Unassigned, Cheriton [facility] 1.84.114 350.1.13.10 4.2.7.2.686 [id number] [id number] [facility] 2022-06-06 11:30:00 2022-06-06 11:30:00 Outpatient R SIMÓN [facility] [id number] [facility] 2022-05-10 00:00:00 2022-05-10 00:00:00 [facility] 1.84.114 350.1.13.10 4.2.7.2.686 [id number] 220 [id number] [facility] 2022-05-03 00:00:00 2022-05-03 00:00:00 Jose Sanchez [facility] 1.2.840.114 350.1.13.10 4.2.7.2.686 [id number] [facility] 2022-04-15 14:00:00 2022-04-15 14:00:00 Outpatient R OLMANKOBYVIKKI [facility] [id number] [facility] 2022-04-10 12:07:29 2022-04-10 23:59:00 [facility] 1.840.114 350.1.13.10 4.2.7.2.686 [id number] 800 [id number] [facility] 2022-04-10 12:03:57 2022-04-10 12:06:00 Outpatient R OLMANKOBYVIKKI [facility] [id number] [facility] 2022-04-10 12:03:57 2022-04-10 12:06:00 Hospital Encounter [facility] .840.114 350.1.13.10 4.2.7.2.686 [id number] 800 [id number] [facility] 2022-04-01 13:45:00 2022-04-01 13:45:00 Outpatient R OLMANKOBYVIKKI [facility] [id number] [facility] 2022-03-25 10:33:57 2022-03-25 23:59:00 [facility] ..840.114 350.1.13.10 4.2.7.2.686 [id number] 800 [id number] [facility] 2022-03-25 11:13:52 2022-03-25 10:32:00 Outpatient R VIKKI DONATO [facility] [id number] [facility] 2022-03-25 10:30:00 2022-03-25 10:32:00 Hospital Encounter Vikki Donato [facility] 1.840.114 350.1.13.10 4.2.7.2.686 [id number] [facility] 2022-03-13 00:00:00 2022-03-13 00:00:00 Orders Only Doctor Unassigned, Cheriton [facility] 1.840.114 350.1.13.10 4.2.7.2.686 [id number] [id number] [facility] 2022-03-06 09:45:00 2022-03-06 10:00:00 Brush Cleaner Visit 2, Adc Lab Unknown, [facility] 1.840.114 350.1.13.10 4.2.7.2.686 [id number] [facility] 2022-03-06 09:45:00 2022-03-06 09:45:00 Outpatient JERONIMO ROME [facility] [id number] [facility] 2022-03-06 09:45:00 2022-03-06 09:45:00 Outpatient JERONIMO ROME [facility] [id number] [facility] 2022-03-04 08:18:01 2022-03-04 23:59:00 Outpatient R VIKKI DONATO [facility] [id number] [facility] 2022-03-04 08:18:01 2022-03-04 23:59:00 Outpatient R VIKKI DONATO [facility] [id number] [facility] 2022-03-04 08:18:01 2022-03-04 23:59:00 Hospital Encounter Vikki Donato [facility] 1.2.840.114 350.1.13.10 4.2.7.2.686 [id number] [facility] 2022-03-03 00:00:00 2022-03-03 00:00:00 [facility] 1.2.840.114 350.1.13.10 4.2.7.2.686 [id number] [facility] 2022-03-03 00:00:00 2022-03-03 00:00:00 Telephone [facility] 1.2.840.114 350.1.13.10 4.2.7.2.686 [id number] [facility] 2022-02-21 10:40:23 2022-02-21 23:59:00 [facility] [id number] [facility] 2022-02-21 10:40:00 2022-02-21 23:59:00 Hospital Encounter Simón [facility] 1.2.840.114 350.1.13.10 4.2.7.2.686 [id number] [facility] 2022-02-21 00:00:00 2022-02-21 00:00:00 Orders Only Doctor Unassigned, Cheriton [facility] 1.2.840.114 350.1.13.10 4.2.7.2.686 [id number] [id number] [facility] 2022-02-18 00:00:00 2022-02-18 00:00:00 Telephone [facility] 1.2.840.114 350.1.13.10 4.2.7.2.686 [id number] [facility] 2022-02-18 00:00:00 2022-02-18 00:00:00 Orders Only Doctor Unassigned, Cheriton [facility] 1.84114 350.1.13.10 4.2.7.2.686 [id number] [facility] 2022-02-18 00:00:00 2022-02-18 00:00:00 Telephone Vikki Donato [facility] 1.84.114 350.1.13.10 4.2.7.2.686 [id number] [facility] 2021-11-22 10:00:00 2021-11-22 10:45:13 [facility] [id number] [facility] 2021-11-22 10:00:00 2021-11-22 10:45:13 [facility] 1.84.114 350.1.13.10 4.2.7.2.686 [id number] 220 [id number] [facility] 2021-11-22 10:00:00 2021-11-22 10:45:13 Outpatient R SIMÓN [facility] [id number] [facility] 2021-10-25 00:00:00 2021-10-25 00:00:00 [facility] 1.840.114 350.1.13.10 4.2.7.2.686 [id number] 220 [id number] [facility] 2021-08-13 11:00:00 2021-08-13 11:00:00 Outpatient R RONALD [facility] [id number] [facility] 2021-05-15 00:00:00 2021-05-15 00:00:00 Orders Only Doctor Unassigned, Cheriton [facility] 1.840.114 350.1.13.10 4.2.7.2.686 [id number] 2021-05-15 00:00:00 2021-05-15 00:00:00 Orders Only Doctor Unassigned, Cheriton [facility] 1.2.840.114 350.1.13.10 4.2.7.2.686 [id number] [facility] 2021-05-03 13:19:28 2021-05-03 14:16:38 [facility] 1.2.840.114 350.1.13.10 4.2.7.2.686 [id number] 220 [id number] 2021-05-03 13:19:28 2021-05-03 14:16:38 [facility] 1.2.840.114 350.1.13.10 4.2.7.2.686 [id number] [facility] 2021-05-03 13:30:00 2021-05-03 13:30:00 Outpatient R [facility] [id number] [facility] 2021-04-24 00:00:00 2021-04-24 00:00:00 Refill Ronald [facility] 1.2.840.114 350.1.13.10 4.2.7.2.686 [id number] [facility] 2021-02-26 00:00:00 2021-02-26 00:00:00 Telephone Ronald [facility] 1.2.840.114 350.1.13.10 4.2.7.2.686 [id number] [facility] 2021-02-07 09:20:34 2021-02-07 23:59:00 [facility] 1.2.840.114 350.1.13.10 4.2.7.2.686 [id number] [facility] 2021-02-07 09:45:00 2021-02-07 09:45:00 Outpatient R [facility] [id number] [facility] 2021-02-07 09:19:36 2021-02-07 09:34:36 Brush Cleaner Visit 2, Adc Lab Ronald [facility] 1..840.114 350.1.13.10 4.2.7.2.686 [id number] [facility] 2021-02-07 00:00:00 2021-02-07 00:00:00 Orders Only Doctor Unassigned, Cheriton [facility] 1.84.114 350.1.13.10 4.2.7.2.686 [id number] [facility] 2021-02-05 15:30:02 2021-02-05 16:24:34 Office Visit Ronald [facility] 1.840.114 350.1.13.10 4.2.7.2.686 [id number] [facility] 2021-02-05 15:30:00 2021-02-05 15:30:00 Outpatient R RONALD [facility] [id number] [facility] 2021-02-04 12:50:00 2021-02-04 12:50:00 Outpatient R CARLITA PADILLA [facility] [id number] [facility] 2021-01-14 10:30:00 2021-01-14 10:30:00 Outpatient R CARLITA PADILLA [facility] [id number] [facility] 2020-12-01 00:00:00 2020-12-01 00:00:00 Jesus Rodriguez [facility] 1..840.114 350.1.13.10 4.2.7.2.686 [id number] [facility] 2020-06-15 00:00:00 2020-06-15 00:00:00 Refill Jeanne Jesus Rik [facility] 1.2.840.114 350.1.13.10 4.2.7.2.686 [id number] [facility] 2020-03-25 00:00:00 2020-03-25 00:00:[address] [facility] 1.2.840.114 350.1.13.10 4.2.7.2.686 [id number] [facility] 2020-03-23 13:30:00 2020-03-23 13:30:00 Outpatient R JESUS NEWMAN [facility] [id number] [facility] 2020-03-19 00:00:00 2020-03-19 00:00:[address] [facility] 1.2.840.114 350.1.13.10 4.2.7.2.686 [id number] [facility] 2020-03-06 10:00:00 2020-03-06 10:00:00 Outpatient R RONALD [facility] [id number] [facility] 2020-03-06 08:02:38 2020-03-06 08:32:38 Telemedici ne Visit Ronald [facility] 1.2.840.114 350.1.13.10 4.2.7.2.686 [id number] [facility] 2020-02-28 00:00:00 2020-02-28 00:00:[address] [facility] 1.2.840.114 350.1.13.10 4.2.7.2.686 [id number] [facility] 2020-02-07 09:00:00 2020-02-07 09:00:00 Outpatient R LIZBETH CARDENAS [facility] [id number] [facility] 2020-01-24 11:00:00 2020-01-24 11:30:00 [facility] 1.2.840.114 350.1.13.10 4.2.7.2.686 [id number] [facility] 2020-01-24 11:00:00 2020-01-24 11:00:00 Outpatient R LIZBETH CARDENAS [facility] [id number] [facility] 2019-08-02 00:00:00 2019-08-02 00:00:00 Refill Marychuy Mcdonnell [facility] 1.2.840.114 350.1.13.10 4.2.7.2.686 [id number] [facility] 2019-07-26 13:14:50 2019-07-26 13:53:33 Office Visit Lizbeth Cardenas [facility] 1.2.840.114 350.1.13.10 4.2.7.2.686 [id number] [facility] 2019-07-26 00:00:00 2019-07-26 00:00:00 Orders Only Doctor Unassigned, Cheriton [facility] 1.2.840.114 350.1.13.10 4.2.7.2.686 [id number] [facility] 2019-06-16 14:48:06 2019-06-16 15:42:48 Shorer Visit Joyce Irizarry [facility] 1.2.840.114 350.1.13.10 4.2.7.2.686 [id number] [facility] 2019-06-16 00:00:00 2019-06-16 00:00:00 Orders Only Doctor Unassigned, Cheriton [facility] 1.2.840.114 350.1.13.10 4.2.7.2.686 [id number] [id number] [facility] Notes Date/Time Note Provider Source 2023-06-22 13:09:54 om9wCK4bVHe1wZVXrLzM dGFHqFHC6FkrbRyqKFi T0MBrIl/pDKKhWWBqmq5lGicR2226-76-77X45: 09:54 NOV: 09/08/23LOV: 07/01/22Refill sent 55383-2Tdjlscvej encounter SdiqFT8286-39-92U29:10:38Telephone encounter NoteTXT1.2.840.186635.1.13.104.2.7.2.72 7879|[id number] for patient zdmb70776-2NfyoLFMJMSUKJT[address] Fmuo[id number] CDRLMEAPTGXOGHRYZEP0094-31-03P23:10:381 .2.840.823269.1.72.3.15|1.2.840.632390. [id number] [facility] 2023-06-22 09:00:25 m4JgDEuWU+Z3EOUAFHz3 8x0BAr8KneIwzgkOplF VUPO8n3eKxeheaeeTmJdZFLii6705-92-41H99: 00:25 Images from the original note were not included. 26795-7Djizdbdxk encounter OulbGK8519-00-43C44:01:09Telephone encounter NoteTXT1.2.840.735352.1.13.104.2.7.2.72 7879|[id number] for patient kgcb82931-1DydtPK079016946Irzszk [address] Af[id number] NCTWJVODTWVUCIMZBZH7405-15-38Y36:01:091 .2.840.443170.1.72.3.15|1.2.840.665975. [id number] [facility]"
[2024-01-03] MEDS ORDERED: METHYLPREDNISOLONE 125 MG INJ ONE (19:27)
[2024-01-03] MEDS ORDERED: LEVALBUTEROL 1.25 MG/3 ML NEB ONE (19:27)
[2024-01-03 20:30] LABS: Absolute Lymphocytes (CBC) 0.8 K/uL (0.7-4.9); Hematocrit 33.8 % (36.0-45.0); Lymphocytes % 11.1 % (15.3-44.8); MCV 82.6 fL (80-100); MPV 8.5 fL (7.6-11.3); Platelets 198 thou/uL (152-406); RBC Red Blood Cell Count 4.09 M/uL (3.86-4.86)
--- NOTE | 2024-01-03 20:35 | RAD REPORT ---
EXAM DESCRIPTION: RAD - Chest Single View - 01/03/2024 8:25 pm CLINICAL HISTORY: Cough;Dyspnea Chest pain. COMPARISON: Abdomen 1 View (KUB) dated 02/22/2023; Chest Single View dated 02/20/2023; Chest Single Vie w dated 01/05/2022; Abdomen 1 View (KUB) dated 06/07/2021 FINDINGS: Portable technique limits examination quality. Interstitial markings are mildly prominent which may indicate interstitial infection/ bronchitis. The heart is upper limit of normal in size. No displaced fractures.
[2024-01-03 20:36] LABS: SARS-CoV-2 Antigen Rapid Res Negative (Negative)
[2024-01-03 20:40] LABS: Protime INR 1.06
[2024-01-03] MEDS ORDERED: AZITHROMYCIN 500 MG INJ IVPB ONE (20:50)
[2024-01-03] MEDS ORDERED: NA CHLORIDE 0.9% 250 ML ONE (20:50)
[2024-01-03 20:55] LABS: Albumin 3.2 g/dL (3.4-5.0); Bilirubin Total 0.3 mg/dL (0.2-1.0); Protein, Total 7.7 g/dL (6.4-8.2)
[2024-01-03 20:57] LABS: Potassium 2.6 mEq/L (3.5-5.1)
--- NOTE | 2024-01-03 21:40 | EDPHYS ---
Physician Documentation [facility] Name: Dulce Cerna Age: 68 yrs Sex: Female : 1955 Arrival Date: 01/03/2024 Time: 19:10 Bed 14 Private MD: ED Physician Brad Hernández HPI: 01/03 20:29 This 68 yrs old Female presents to ER via EMS with complaints of Productive Cough, rn Shortness Of Breath, Chest Pain. 20:29 The patient or guardian reports cough, difficulty breathing. Onset: The rn symptoms/episode began/occurred 2 day(s) ago. Severity of symptoms: At their worst the symptoms were moderate, in the emergency department the symptoms have improved. Modifying factors: The symptoms are alleviated by nebulizer treatment, the symptoms are aggravated by nothing. Associated signs and symptoms: Pertinent negatives: fever, rhinorrhea. The patient has experienced similar episodes in the past. Patient reports cough for several days, shortness of breath over the last 2 days. EMS reports oxygen saturation mid 80s, improved with nebulizer treatment. Patient reports auditory wheezing and does not have nebulizer at home. Recurrent episodes of pneumonia in the past.. Historical: - Allergies: 19:13 PENICILLINS; kc6 19:13 Sulfa (Sulfonamide Antibiotics); kc6 - PMHx: 19:13 addisons; Chronic pain; Depression; Early Dementia; Hyperlipidemia; Irritable bowel kc6 syndrome; TIA; - PSHx: 19:13 Appendectomy; Cholecystectomy; endometriosis; Exploratory laparotomy; Total abdominal kc6 hysterectomy; - Immunization history:: Adult Immunizations up to date. - Social history:: Smoking status: unknown. - Family history:: not pertinent. - Hospitalizations: : No recent hospitalization is reported. ROS: 20:29 Constitutional: Negative for fever, chills, and weight loss, Eyes: Negative for injury, rn pain, redness, and discharge, Neck: Negative for injury, pain, and swelling, Cardiovascular: Negative for chest pain, palpitations, and edema, Respiratory: Positive for cough and shortness of breath, positive for wheezing Abdomen/GI: Negative for abdominal pain, nausea, vomiting, diarrhea, and constipation, MS/Extremity: Negative for injury and deformity, Skin: Negative for injury, rash, and discoloration, Neuro: Negative for headache, weakness, numbness, tingling, and seizure, Exam: 20:29 Constitutional: This is a well developed, well nourished patient who is awake, alert, rn mild tachypnea Head/Face: Normocephalic, atraumatic. ENT: Dry mucous membranes, no stridor Cardiovascular: Regular rate and rhythm. No pulse deficits. Respiratory: Mild tachypnea, bilateral wheezing, worse in left upper lung Abdomen/GI: Soft, nontender MS/ Extremity: Pulses equal, no cyanosis. Neurovascular intact. Full, normal range of motion. Equal circumference. Neuro: Awake and alert, GCS 15, oriented to person, place, time, and situation. Vital Signs: 19:12 BP 162 / 63; Pulse 73; Resp 15 S; Temp 98(A); Pulse Ox 94% on R/A; Weight 73.48 kg (R); kc6 Height 5 ft. 2 in. (R); 20:29 BP 163 / 92; Pulse 73; Resp 19 S; Pulse Ox 95% on 2 lpm NC; kc6 21:25 BP 188 / 77; Pulse 77; Resp 20 S; Pulse Ox 99% on 2 lpm NC; kc6 21:41 BP 155 / 48; Pulse 71; Resp 19 S; Pulse Ox 96% on 2 lpm NC; kc6 22:19 BP 144 / 63; Pulse 70; Resp 21 S; Pulse Ox 99% on 2 lpm NC; kc6 22:30 BP 146 / 69; Pulse 61; Resp 21 S; Pulse Ox 99% on 2 lpm NC; kc6 19:12 Body Mass Index 29.63 (73.48 kg, 157.48 cm) [facility] MDM: 19:14 Patient medically screened. rn 21:37 Differential Diagnosis: Bronchitis Influenza Upper Respiratory Infection Asthma rn Exacerbation Viral Syndrome Pneumonia. Data reviewed: vital signs, nurses notes, lab test result(s), radiologic studies, plain films, and as a result, I will admit patient. Consideration of Admission/Observation Patient was admitted/placed on observation. Escalation of care including admission/observation considered. Care significantly affected by the following chronic conditions: Asthma. Counseling: I had a detailed discussion with the patient and/or guardian regarding the historical points, exam findings, and any diagnostic results supporting the discharge/admit diagnosis, lab results, radiology results, the need for further work-up and treatment in the hospital. Response to treatment: the patient's symptoms have mildly improved after treatment, and as a result, I will admit patient. ED course: Patient with bronchitis versus pneumonitis on x-ray of chest. Improved oxygenation but still requires oxygen which she normally does not. Still tachypneic. Patient still reports dyspnea. Will admit to hospitalist service for antibiotics and further care.. 01/03 19:17 Order name: Blood Culture Adult (2) rn 01/03 19:17 Order name: CBC with Diff; Complete Time: 20:44 rn 01/03 19:17 Order name: CMP; Complete Time: 21:26 rn 01/03 19:17 Order name: Lactate w/ 2H reflex if indic.; Complete Time: 21:26 rn 01/03 19:17 Order name: Protime (+inr); Complete Time: 20:44 rn 01/03 19:17 Order name: Ptt, Activated; Complete Time: 20:44 rn 01/03 19:17 Order name: Flu; Complete Time: 20:44 rn 01/03 19:17 Order name: SARS RAPID; Complete Time: 20:44 rn 01/03 19:17 Order name: Strep rn 01/03 20:09 Order name: Throat Culture EDOH 01/03 22:05 Order name: Basic Metabolic Panel EDOH 01/03 22:05 Order name: Basic Metabolic Panel EDOH 01/03 22:05 Order name: Basic Metabolic Panel EDMS 01/03 22:05 Order name: Basic Metabolic Panel EDOH 01/03 22:05 Order name: CBC with Automated Diff EDMS 01/03 22:05 Order name: CBC with Automated Diff EDMS 01/03 22:05 Order name: CBC with Automated Diff EDMS 01/03 22:05 Order name: CBC with Automated Diff EDMS 01/03 19:17 Order name: Chest Single View XRAY; Complete Time: 20:44 rn 01/03 19:17 Order name: EKG; Complete Time: 19:17 rn 01/03 19:17 Order name: Accucheck; Complete Time: 20:28 rn 01/03 19:17 Order name: Cardiac monitoring; Complete Time: 19:45 rn 01/03 19:17 Order name: EKG - Nurse/Tech; Complete Time: 19:45 rn 01/03 19:17 Order name: IV Saline Lock - Large Bore; Complete Time: 20:28 rn 01/03 19:17 Order name: Labs collected and sent; Complete Time: 20: rn 01/03 19:17 Order name: O2 Per Protocol; Complete Time: 19: rn 01/03 19:17 Order name: O2 Sat Monitoring; Complete Time: 19:25 rn 01/03 19:17 Order name: Vital Signs; Complete Time: 19:25 rn 01/03 22:49 Order name: Accucheck; Complete Time: 22:52 lg3 Administered Medications: 19:45 Drug: Levalbuterol Inhalation 1.25 mg Inhalation once Route: Inhalation; kc6 20:49 Follow up: Response: No adverse reaction kc6 20:28 Drug: MethylPrednisoLONE IVP 125 mg IVP once Route: IVP; Site: left antecubital; kc6 20:49 Follow up: Response: No adverse reaction kc6 20:55 Drug: Zithromax IVPB 500 mg IVPB once over 1 hrs; mix in 250 mL NS Route: IVPB; Infused kc6 Over: 1 hrs; Site: left antecubital; 21:41 Follow up: Response: No adverse reaction; IV Status: Completed infusion; IV Intake: kc6 250ml 22:54 Drug: Potassium Chloride IV 20 mEq IV at calculated rate once; administer over 1-2 kc6 hours Route: IV; Rate: calculated rate; Site: left antecubital; 23:02 Follow up: Response: No adverse reaction; IV Status: Infusion continued upon admission kc6 Disposition Summary: 01/03/24 21:39 Hospitalization Ordered Notes: Hospitalization Status: Inpatient Admission rn Provider: Storm Cisneros rn Location: Telemetry/[facility] (Inpatient) rn Condition: Stable rn Problem: new rn Symptoms: are unchanged rn Bed/Room Type: Standard rn Room Assignment: 214(01/03/24 22:13) cg Diagnosis - Moderate persistent asthma with (acute) exacerbation rn - Pneumonia, unspecified organism rn - Hypoxemia rn Forms: - Medication Reconciliation Form rn - SBAR form rn - Leadership Thank You Letter rn Signatures: Dispatcher [employer] Brad Lozano MD MD rn Garcia, Cindy, RN RN cg Able, Lacie, RN RN lg3 Jeannie Velásquez RN RN kc6 Corrections: (The following items were deleted from the chart) 22:13 21:39 rn cg
--- NOTE | 2024-01-03 21:40 | ER ---
Nurse's Notes [facility] Name: Dulce Cerna Age: 68 yrs Sex: Female : 1955 Arrival Date: 01/03/2024 Time: 19:10 Bed 14 Private MD: Diagnosis: Moderate persistent asthma with (acute) exacerbation;Pneumonia, unspecified organism;Hypoxemia Presentation: 01/03 19:12 Chief complaint: EMS states: coughing up green stuff with sob and chest pain x2 days. kc6 BGL en route 125. Coronavirus screen: At this time, the client does not indicate any symptoms associated with coronavirus-19. Ebola Screen: No symptoms or risks identified at this time. Initial Sepsis Screen: Does the patient meet any 2 criteria? No. Patient's initial sepsis screen is negative. Does the patient have a suspected source of infection? No. Patient's initial sepsis screen is negative. Risk Assessment: Do you want to hurt yourself or someone else? Patient reports no desire to harm self or others. Onset of symptoms was January 03, 2024. 19:12 Method Of Arrival: EMS: [facility] kc6 19:12 Acuity: TRACY 3 kc6 Triage Assessment: 19:13 General: Appears in no apparent distress. comfortable, well groomed, well developed, kc6 Behavior is calm, cooperative, appropriate for age. Pain: Complains of pain in chest. EENT: No signs and/or symptoms were reported regarding the EENT system. Neuro: Level of Consciousness is awake, alert, obeys commands, Oriented to person, place, time, situation, Appropriate for age. Cardiovascular: Reports chest pain, Heart tones S1 S2 present Capillary refill < 3 seconds. Respiratory: Reports shortness of breath Airway is patent Trachea midline Respiratory effort is even, unlabored, Respiratory pattern is regular, symmetrical, Breath sounds with wheezes bilaterally. Onset: The symptoms/episode began/occurred 2 days ago, the patient has mild shortness of breath. GI: No signs and/or symptoms were reported involving the gastrointestinal system. : No signs and/or symptoms were reported regarding the genitourinary system. Derm: No signs and/or symptoms reported regarding the dermatologic system. Skin is intact, is healthy with good turgor, Skin is pale, Skin temperature is warm. Musculoskeletal: No signs and/or symptoms reported regarding the musculoskeletal system. Circulation, motion, and sensation intact. Capillary refill < 3 seconds, Range of motion: intact in all extremities. Historical: - Allergies: 19:13 PENICILLINS; kc6 19:13 Sulfa (Sulfonamide Antibiotics); kc6 - PMHx: 19:13 addisons; Chronic pain; Depression; Early Dementia; Hyperlipidemia; Irritable bowel kc6 syndrome; TIA; - PSHx: 19:13 Appendectomy; Cholecystectomy; endometriosis; Exploratory laparotomy; Total abdominal kc6 hysterectomy; - Immunization history:: Adult Immunizations up to date. - Social history:: Smoking status: unknown. - Family history:: not pertinent. - Hospitalizations: : No recent hospitalization is reported. Screenin:15 [facility] ED Fall Risk Assessment (Adult) History of falling in the last 3 months, kc6 including since admission No falls in past 3 months (0 pts) Confusion or Disorientation No (0 pts) Intoxicated or Sedated No (0 pts) Impaired Gait No (0 pts) Mobility Assist Device Used No (0 pt) Altered Elimination No (0 pt) Score/Fall Risk Level 0 - 2 = Low Risk. Abuse screen: Denies threats or abuse. Denies injuries from another. Nutritional screening: No deficits noted. Tuberculosis screening: No symptoms or risk factors identified. Assessment: 19:15 Reassessment: please see triage assessment. 6 19:15 Cardiovascular: Rhythm is sinus rhythm. kc6 20:29 Reassessment: pt appears to be 87% on RA. pt placed on 2L via NC, pt is now 95%. kc6 21:25 Reassessment: Patient appears in no apparent distress at this time. No changes from [facility] previously documented assessment. Patient and/or family updated on plan of care and expected duration. Pain level reassessed. Patient is alert, oriented x 3, equal unlabored respirations, skin warm/dry/pink. 22:18 Reassessment: Patient appears in no apparent distress at this time. No changes from [facility] previously documented assessment. Patient and/or family updated on plan of care and expected duration. Pain level reassessed. Patient is alert, oriented x 3, equal unlabored respirations, skin warm/dry/pink. attempted to call report to 2nd floor. service secretary states nurse is busy with a pt right now and will call me back. 22:40 Reassessment: pt drowsy, responds to verbal and painful stimuli. pt is able to tell me kc6 her name and her sisters name. VSS. Dr. Hernández and ROYAL Golden notified. verbal orders received from Dr. Hernández to administer 20meq of potassium IV and recheck BGL. ROYAL Davis on second floor notified of pts condition. verbalized understanding. Vital Signs: 19:12 BP 162 / 63; Pulse 73; Resp 15 S; Temp 98(A); Pulse Ox 94% on R/A; Weight 73.48 kg (R); kc6 Height 5 ft. 2 in. (R); 20:29 BP 163 / 92; Pulse 73; Resp 19 S; Pulse Ox 95% on 2 lpm NC; kc6 21:25 BP 188 / 77; Pulse 77; Resp 20 S; Pulse Ox 99% on 2 lpm NC; kc6 21:41 BP 155 / 48; Pulse 71; Resp 19 S; Pulse Ox 96% on 2 lpm NC; kc6 22:19 BP 144 / 63; Pulse 70; Resp 21 S; Pulse Ox 99% on 2 lpm NC; kc6 22:30 BP 146 / 69; Pulse 61; Resp 21 S; Pulse Ox 99% on 2 lpm NC; kc6 19:12 Body Mass Index 29.63 (73.48 kg, 157.48 cm) [facility] ED Course: 19:11 Patient arrived in ED. kc6 19:13 Triage completed. kc6 19:13 Arm band placed on. kc6 19:14 Brad Hernández MD is Attending Physician. rn 19:15 Patient has correct armband on for positive identification. Bed in low position. Call [facility] light in reach. Side rails up X2. Client placed on continuous cardiac and pulse oximetry monitoring. NIBP monitoring applied. 19:15 Patient maintains SpO2 saturation greater than 95% on room air. kc6 19:44 Jeannie Velásquez, ROYAL is Primary Nurse. kc6 19:45 Strep Sent. kc6 19:45 SARS RAPID Sent. kc6 19:45 Flu Sent. kc6 20:05 Inserted saline lock: 20 gauge in left antecubital area, using aseptic technique. nj1 ,using aseptic technique. Ultrasound guided. Catheter tip well visualized within vasculature during placement. Blood collected. 20:27 Chest Single View XRAY In Process Unspecified. EDMS 21:38 Omitogun, Storm, MD is Hospitalizing Provider. rn 23:03 No provider procedures requiring assistance completed. Patient admitted, IV remains in kc6 place. Administered Medications: 19:45 Drug: Levalbuterol Inhalation 1.25 mg Inhalation once Route: Inhalation; kc6 20:49 Follow up: Response: No adverse reaction kc6 20:28 Drug: MethylPrednisoLONE IVP 125 mg IVP once Route: IVP; Site: left antecubital; kc6 20:49 Follow up: Response: No adverse reaction kc6 20:55 Drug: Zithromax IVPB 500 mg IVPB once over 1 hrs; mix in 250 mL NS Route: IVPB; Infused kc6 Over: 1 hrs; Site: left antecubital; 21:41 Follow up: Response: No adverse reaction; IV Status: Completed infusion; IV Intake: kc6 250ml 22:54 Drug: Potassium Chloride IV 20 mEq IV at calculated rate once; administer over 1-2 kc6 hours Route: IV; Rate: calculated rate; Site: left antecubital; 23:02 Follow up: Response: No adverse reaction; IV Status: Infusion continued upon admission kc6 Medication: 23:03 VIS not applicable for this client. kc6 Intake: 21:41 IV: 250ml; Total: 250ml. kc6 Outcome: 21:39 Decision to Hospitalize by Provider. rn 23:03 Admitted to Med/surg accompanied by tech, via stretcher, with oxygen, with chart, kc6 Report called to ROYAL Davis 23:03 Condition: stable 23:03 Instructed on the need for admit, 23:03 Patient left the ED. kc6 Signatures: Dispatcher [employer] EDMS Brad Hernández MD MD rn Campbell, Kaitlyn, RN RN kc6 Jaco, Norma, RN RN nj1 Corrections: (The following items were deleted from the chart) 21:41 21:25 BP 188 / 7; Pulse 77bpm; Resp 20bpm; Spontaneous; Pulse Ox 99% 2 lpm Nasal kc6 Cannula; kc6 21:41 21:25 BP 155 / 48; Pulse 71bpm; Resp 19bpm; Spontaneous; Pulse Ox 96% 2 lpm Nasal kc6 Cannula; kc6
[2024-01-03] MEDS ORDERED: ONDANSETRON 4 MG/2 ML VIAL IV PRN (21:59)
--- NOTE | 2024-01-03 22:04 | P.HP ---
Certification for Inpatient Patient admitted to: Inpatient With expected LOS: >2 Midnights Practitioner: I am a practitioner with admitting privileges, knowledge of patient current condition, hospital course, and medical plan of care. Services: Services provided to patient in accordance with Admission requirements found in Title 42 Section 412.3 of the Code of Federal Regulations Patient History Date of Service: 01/04/24 Reason for admission: Pneumonia, COPD exacerbation. History of Present Illness: 68-year-old female patient past medical history significant for irritable bowel syndrome, hypertension, history of COPD, hyperlipidemia, hypothyroidism and hypertension was evaluated for episode of lethargy and shortness of breath. She reports significant lethargy shortness of breath and cough with some congestion and imaging done in the ER was concerning for bronchitis/early onset pneumonia. There is also concerns for COPD exacerbation. She was started on IV steroid and she was admitted for inpatient care. She also had a dose of antibiotic given. Initial lab revealed significantly low potassium of 2.6 for which she was started on repletion protocol. Allergies Penicillins Allergy (Verified 02/20/23 15:29) Shortness of breath Sulfa (Sulfonamide Antibiotics) [Sulfa(Sulfonamide Antibiotics)] Allergy (Verified 02/20/23 15:29) Shortness of breath NSAIDS Adverse Reaction (Uncoded 03/16/19 23:40) Kidney Problems Home Medications: Duloxetine HCl 120 mg PO DAILY 08/27/20 Estradiol 2 mg PO BEDTIME 08/27/20 Levothyroxine Sodium 25 mcg PO DAILY 08/27/20 Rosuvastatin Calcium 10 mg PO DAILY 08/27/20 clonazePAM [Klonopin*] 1 mg PO BIDP PRN 08/27/20 Amitriptyline [Elavil*] 150 mg PO BEDTIME 06/05/21 Oxycodone HCl 10 mg PO TID 04/02/22 Alendronate [Fosamax*] 70 mg PO EVERY 7TH DAY 02/20/23 Clear Lax 1 tab PO DAILY PRN 02/20/23 ARIPiprazole [Aripiprazole] 2 mg PO BEDTIME #30 tab 02/24/23 Amlodipine [Norvasc*] 5 mg PO DAILY #30 tab 02/24/23 Docusate [Colace Cap*] 100 mg PO BID #60 cap 02/24/23 Eszopiclone [Lunesta] 2 tab PO BEDTIME #60 tab 02/24/23 Fludocortisone 0.1 mg PO DAILY #30 tab 02/24/23 Hydrocortisone [Cortef*] 10 mg PO BID* #60 tab 02/24/23 Melatonin [Melatonin ER] 10 mg PO BEDTIME PRN #30 tab 02/24/23 Metoprolol Tartrate [Lopressor*] 50 mg PO BID* #60 tab 02/24/23 Omeprazole [Prilosec] 1 cap PO DAILY #30 tab 02/24/23 Polyethyl Gly 3350 [Glycolax*] 17 gm PO DAILY PRN #30 udbot 02/24/23 - Past Medical/Surgical History Diabetic: No -: [place]'s -: Irritable Bowel Syndrome -: TIA -: Chronic back pain -: hyperlipidemia -: CVA -: hypothyroidism -: Depression -: Early Dementia -: Cholecystectomy -: Appendectomy -: -: Hysterectomy -: Exploratory laparotomy Psychosocial/ Personal History: Patient lives at home with her sister - Family History Mother -: Stroke, Other (see notes) Notes: Asthma. Rheumatoid Arthritis - Social History Alcohol use: No CD- Drugs: No Caffeine use: Yes Review of Systems General: Weakness, Malaise Eyes: Unremarkable ENT: Unremarkable Respiratory: Unremarkable Cardiovascular: Unremarkable Gastrointestinal: Unremarkable Genitourinary: Unremarkable Musculoskeletal: Unremarkable Integumentary: Unremarkable Neurological: Unremarkable Lymphatics: Unremarkable Physical Examination - Physical Exam General: Delirious HEENT: Atraumatic, Normocephalic Neck: Supple Respiratory: Normal air movement Cardiovascular: Regular rate/rhythm, Normal S1 S2 Gastrointestinal: Soft and benign Musculoskeletal: No swelling Integumentary: No breakdown - Studies Laboratory Data (last 24 hrs) 01/03/24 01/03/24 01/03/24 20:05 20:05 20:05 WBC 7.50 Hgb 11.3 L Hct 33.8 L Plt Count 198 PT 11.6 INR 1.06 APTT 32.4 Sodium 136 Potassium 2.6 L* BUN 10 Creatinine 1.19 H Glucose 106 Total Bilirubin 0.3 AST 21 ALT 32 Alkaline Phosphatase 92 Microbiology Data (last 24 hrs): 01/03/24 19:42 Nasopharnyx Influenza Type A Antigen Screen - Final 01/03/24 19:42 Nasopharnyx Influenza Type B Antigen Screen - Final 01/03/24 19:42 Throat Group A Streptococcus Rapid Screen - Final Assessment and Plan - Plan Pneumonia/COPD: Patient has been started on empiric antibiotic therapy with Rocephin and azithromycin for management. Will continue as needed breathing treatment. Continue steroid therapy. Cultures have been taken, will adjust based on culture report. Hypokalemia: Severe with a low potassium at 2.6. Will start aggressive repletion with IV potassium chloride and monitor labs on daily draws. Hypertension: Monitor vital signs per unit protocol and continue outpatient antihypertensive medications. Hypothyroidism: Continue levothyroxine. Hyperlipidemia: Continue statin therapy. Depression: Continue outpatient antidepressant medications. Prophylaxis: Lovenox for DVT prophylaxis. CODE STATUS: Full code Disposition: We will treat pneumonia/bronchitis episode, replete deficient electrolytes and discharge home once deemed clinically stable. - Advance Directives Does patient have a Living Will: No Does patient have a Durable POA for Healthcare: No
[2024-01-03] MEDS ORDERED: NA CHLORIDE 0.9% 1,000 ML ONE (22:49)
[2024-01-03] MEDS ORDERED: KCL 20 MEQ/100 mL IVPB 100 ML IV ONE (22:49)
[2024-01-03 23:36] LABS: Arterial Blood Carboxyhemoglob 1.1 % (0-1.5); Blood Gas Oxyhemoglobin 95.3 % (94-97); Blood O2 Saturation 97.4 % (92-98.5)
[2024-01-03] MEDS ORDERED: POTASSIUM CL 40 MEQ in NA CHLORIDE 0.9% 500 ML IV SCH (23:45)
[2024-01-04 00:45] VITALS: BMI 29.6
[2024-01-04] MEDS: KCL 20 MEQ/100 mL IVPB 20 MEQ/100 ML BAG IV SCH (01:00)
[2024-01-04 10:10] LABS: Potassium 3.8 mEq/L (3.5-5.1)
--- NOTE | 2024-01-04 10:37 | P.PN ---
Subjective Date of Service: 01/04/24 Chief Complaint: Pneumonia, COPD exacerbation. Pt is resting comfortably in bed. She is using 2L BNC. Potassium is 2.6. Continue abx for pneumonia. No other issues overnight. Review of Systems Unremarkable General: Unremarkable Eyes: Unremarkable ENT: Unremarkable Respiratory: Shortness of Breath Cardiovascular: Unremarkable Gastrointestinal: Unremarkable Genitourinary: Unremarkable Musculoskeletal: Unremarkable Integumentary: Unremarkable Neurological: Unremarkable Lymphatics: Unremarkable Physical Examination - Vital Signs Temperature: 97.1 F Blood Pressure: 178/77 Pulse: 66 Respirations: 17 Pulse Ox (%): 93 - Physical Exam General: Alert, In no apparent distress, Oriented x3 HEENT: Atraumatic, Normocephalic Neck: Supple, 2+ carotid pulse no bruit Respiratory: Clear to auscultation bilaterally, Normal air movement Cardiovascular: No edema, Normal pulses, Regular rate/rhythm, Normal S1 S2 Capillary refill: <2 Seconds Gastrointestinal: Normal bowel sounds, Soft and benign, Non-distended Musculoskeletal: No clubbing, No swelling Integumentary: No rashes, No breakdown Neurological: Normal speech, Normal strength at 5/5 x4 extr, Normal tone, Sensation intact, Cranial nerves 3-12 intact Lymphatics: No axilla or inguinal lymphadenopathy - Studies Laboratory Data (last 24 hrs) 01/03/24 01/03/24 01/03/24 20:05 20:05 20:05 WBC 7.50 Hgb 11.3 L Hct 33.8 L Plt Count 198 PT 11.6 INR 1.06 APTT 32.4 Sodium 136 Potassium 2.6 L* BUN 10 Creatinine 1.19 H Glucose 106 Total Bilirubin 0.3 AST 21 ALT 32 Alkaline Phosphatase 92 Microbiology Data (last 24 hrs): 01/03/24 19:42 Nasopharnyx Influenza Type A Antigen Screen - Final 01/03/24 19:42 Nasopharnyx Influenza Type B Antigen Screen - Final 01/03/24 19:42 Throat Group A Streptococcus Rapid Screen - Final Assessment And Plan - Plan Pneumonia: Will continue rocephin and azithro. Follow up blood cx. Acute COPD exacerbation: Will continue solumedrol, 2L BNC and prn duoneb. Will consult Wood Preparation Supervisor. Acute resp failure with hypoxia: Due to COPD/Pneumonia. Will continue treatment stated above. Hypokalemia: Severe with a low potassium at 2.6. Will replete and monitor. Will check mag. Hypertension: Will monitor BP. Hypothyroidism: Continue levothyroxine. Hyperlipidemia: Continue statin therapy. Depression: Continue outpatient antidepressant medications. DVT Prophylaxis: Lovenox Code: Full code Disposition: Pending hospital course.
[2024-01-04] MEDS: POTASSIUM CL SA 10 MEQ TAB PO SCH (10:42)
[2024-01-04] MEDS: HYDROCORTISONE 10 MG TAB PO SCH (10:42)
[2024-01-04] MEDS: CEFTRIAXONE 1,000 MG in NA CHLORIDE 0.9% 50 ML IVPB SCH (10:44)
[2024-01-04] MEDS: ENOXAPARIN 40 MG/0.4 ML SQ SCH (10:44)
[2024-01-04] MEDS: clonazePAM 1 MG TAB PO PRN (10:48)
[2024-01-04 11:07] LABS: Absolute Lymphocytes (CBC) 0.4 K/uL (0.7-4.9); Lymphocytes % 6.6 % (15.3-44.8); MCV 82.9 fL (80-100); MPV 8.4 fL (7.6-11.3); Platelets 190 thou/uL (152-406); RBC Red Blood Cell Count 3.86 M/uL (3.86-4.86)
[2024-01-04 11:42] LABS: Blood Morphology Comment NOT SEEN (NOT SEEN); Platelet Estimate ADEQ; Toxic Granulation 1+; White Blood Cell Scan OK (OK)
--- NOTE | 2024-01-04 12:37 | RAD REPORT ---
EXAM DESCRIPTION: CT - Head Brain Wo Cont - 01/04/2024 1:36 am CLINICAL HISTORY: AMS COMPARISON: None available TECHNIQUE: Axial CT of the head obtained from the skull apex to the skull base without contrast. Thi s exam was performed according to our departmental dose-optimization program, which includes automate d exposure control, adjustment of the mA and/or kV according to patient size and/or use of iterative reconstruction technique. FINDINGS: No acute intracranial hemorrhage identified. No mass, mass effect, shift of the midline, a bnormal extra-axial fluid collection or CT evidence of acute ischemic change identified. The ventricu lar system and sulcal spaces are age appropriate. Scattered areas of hypodensity throughout the sup ratentorial white matter are nonspecific and may be related to chronic small vessel ischemic change. The visualized paranasal sinuses and the mastoids are clear. No skull fracture identified. Visualiz ed orbits and globes are unremarkable. Atherosclerotic calcification of the intracranial internal car otid arteries. IMPRESSION: 1. No acute intracranial abnormality by CT criteria. Electronically signed by: Remigio Delvalle DO 01/04/2024 01:25 AM CHAIN OFFBEARER M Due to temporary technical issues with the PACS/Fluency reporting system, reports are being signed by the in house radiologist without review as a courtesy to ensure prompt reporting. The interpreting r adiologist is fully responsible for the content of the report.
[2024-01-04] MEDS ORDERED: HYDRALAZINE HCL 20 MG/ML VIAL IV PRN (12:57)
--- NOTE | 2024-01-04 13:34 | EKG ---
Test Date: 2024-01-03 Test Time: 19:31:06 Rn Emergency: SHAYE MEASUREMENT RESULTS: Intervals: Rate: 73 ID: [id number] QRSD: 96 QT: 440 QTc: 484 [place]: P: 70 ID: [id number] QRS: 43 T: 52 INTERPRETIVE STATEMENTS: Sinus rhythm with premature atrial complexes Septal infarct, age undetermined Abnormal ECG Compared to ECG 02/24/2023 06:22:39 Atrial premature complex(es) now present Myocardial infarct finding now present Atrial fibrillation no longer present Ventricular premature complex(es) no longer present ST (T wave) deviation no longer present Possible ischemia no longer present Electronically Signed On 01-04-24 13:32:31 AIRPLANE CLEANER by Gavin Howe
[2024-01-04] MEDS: OXYCODONE HCL 5 MG TAB PO SCH (13:54)
[2024-01-04] MEDS: HYDRALAZINE HCL 20 MG/ML VIAL IV PRN (13:56)
[2024-01-04] MEDS ORDERED: HYDROCORTISONE 10 MG TAB PO SCH (14:00)
[2024-01-04] MEDS: LEVALBUTEROL 1.25 MG/3 ML NEB NEB PRN (20:26)
[2024-01-04] MEDS: AMITRIPTYLINE 50 MG TAB PO SCH (20:38)
[2024-01-04] MEDS: ARIPIPRAZOLE 2 MG PO SCH (20:39)
[2024-01-04] MEDS: ACETAMINOPHEN 325 MG TABLET PO PRN (20:42)
[2024-01-05 03:55] LABS: Absolute Lymphocytes (CBC) 1.4 K/uL (0.7-4.9); Hematocrit 29.4 % (36.0-45.0); Lymphocytes % 19.2 % (15.3-44.8); Platelets 162 thou/uL (152-406); RBC Red Blood Cell Count 3.54 M/uL (3.86-4.86)
[2024-01-05 04:02] LABS: Potassium 3.7 mEq/L (3.5-5.1)
[2024-01-05] MEDS: LEVOTHYROXINE SOD 0.025 MG TAB PO SCH (05:48)
[2024-01-05] MEDS ORDERED: HOME MED 1 EA UNK (Omeprazole [Prilosec] 40 MG Capsule.Dr) PO SCH (09:00)
[2024-01-05] MEDS: predniSONE 20 MG TAB PO SCH (09:45)
[2024-01-05] MEDS: DULOXETINE 30 MG CAP PO SCH (09:45)
[2024-01-05] MEDS: ROSUVASTATIN 10 MG TAB PO SCH (09:46)
[2024-01-05] MEDS: PANTOPRAZOLE 40MG TABLET PO SCH (09:47)
[2024-01-05] MEDS: AMLODIPINE 5 MG TAB PO SCH (09:48)
--- NOTE | 2024-01-05 10:28 | P.PN ---
Subjective Date of Service: 01/05/24 Chief Complaint: Pneumonia, COPD exacerbation. Pt is resting comfortably in bed. She is using 2L BNC. Potassium is 2.7. Continue abx for pneumonia. No other issues overnight. Physical Examination - Vital Signs Temperature: 98.5 F Blood Pressure: 189/76 Pulse: 72 Respirations: 22 Pulse Ox (%): 97 - Studies Microbiology Data (last 24 hrs): 01/03/24 19:42 Throat Group A Streptococcus Rapid Screen - Final Assessment And Plan - Plan Pneumonia: Will continue rocephin and azithro. Follow up blood cx. Acute COPD exacerbation: Will continue steroid, 2L BNC and prn duoneb. Will consult Occupational Therapy Assistant. Acute resp failure with hypoxia: Due to COPD/Pneumonia. Will continue treatment stated above. Hypokalemia: resolved. K is 3.7 <- 2.6. Will monitor. Will check mag. 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 Hypothyroidism: Continue levothyroxine. Hyperlipidemia: Continue statin therapy. Depression: Continue outpatient antidepressant medications. DVT Prophylaxis: Lovenox Code: Full code Disposition: Pending hospital course.
--- NOTE | 2024-01-05 12:41 | P.CNS ---
Date of Consult: 01/05/24 Chief Complaint: COPD exacerbation. History of Present Illness: Patient is 68 years of age multiple medical problems got worse over the preceding 4 days admitted with increasing shortness of breath chest congestion productive cough better since admission Allergies Penicillins Allergy (Verified 02/20/23 15:29) Shortness of breath Sulfa (Sulfonamide Antibiotics) [Sulfa(Sulfonamide Antibiotics)] Allergy (Verified 02/20/23 15:29) Shortness of breath NSAIDS Adverse Reaction (Uncoded 03/16/19 23:40) Kidney Problems Home Medications: Duloxetine HCl 120 mg PO DAILY 08/27/20 Estradiol 2 mg PO BEDTIME 08/27/20 Levothyroxine Sodium 25 mcg PO DAILY 08/27/20 Rosuvastatin Calcium 10 mg PO DAILY 08/27/20 clonazePAM [Klonopin*] 1 mg PO BIDP PRN 08/27/20 Amitriptyline [Elavil*] 150 mg PO BEDTIME 06/05/21 Oxycodone HCl 10 mg PO TID 04/02/22 Alendronate [Fosamax*] 70 mg PO EVERY 7TH DAY 02/20/23 ARIPiprazole [Aripiprazole] 2 mg PO BEDTIME #30 tab 02/24/23 Amlodipine [Norvasc*] 5 mg PO DAILY #30 tab 02/24/23 Eszopiclone [Lunesta] 2 tab PO BEDTIME #60 tab 02/24/23 Fludocortisone 0.1 mg PO DAILY #30 tab 02/24/23 Hydrocortisone [Cortef*] 10 mg PO BID* #60 tab 02/24/23 Metoprolol Tartrate [Lopressor*] 50 mg PO BID* #60 tab 02/24/23 Omeprazole [Prilosec] 1 cap PO DAILY #30 tab 02/24/23 - Past Medical/Surgical History Diabetic: No -: [place]'s -: Irritable Bowel Syndrome -: TIA -: Chronic back pain -: hyperlipidemia -: CVA -: hypothyroidism -: Depression -: Early Dementia -: Cholecystectomy -: Appendectomy -: -: Hysterectomy -: Exploratory laparotomy Psychosocial/ Personal History: Patient lives at home with her sister - Family History Mother Medical History: Stroke, Other (see notes) Notes: Asthma. Rheumatoid Arthritis - Social History Smoking Status: Unknown if ever smoked Alcohol use: No CD- Drugs: No Caffeine use: Yes Review of Systems 10-point ROS is otherwise unremarkable General: Weakness Respiratory: Shortness of Breath Physical Examination Temp Pulse Resp BP Pulse Ox 98.5 F 72 22 H 189/76 H 97 01/05/24 10:30 01/05/24 10:30 01/05/24 10:30 01/05/24 10:30 01/05/24 10:30 General: Alert, In no apparent distress, Oriented x3 Respiratory: Clear to auscultation bilaterally, Normal air movement Cardiovascular: No edema, Regular rate/rhythm, Normal S1 S2 Gastrointestinal: Normal bowel sounds, Soft and benign Musculoskeletal: No clubbing, No swelling Integumentary: No rashes, No breakdown - Problems (1) COPD exacerbation Current Visit: Yes Status: Acute Plan: Patient is 68 years of age admitted with a COPD exacerbation chest x-ray shows some mild interstitial changes patient's blood pressure is elevated mild fever noted this admission blood gases reviewed mild hypercarbia cultures are so far negative levofloxacin discharge planning pressure is little elevated will give her some Lasix 1 dose increase the dose of amlodipine
[2024-01-05] MEDS: FUROSEMIDE 20 MG/ 2ML VIAL IV SCH (13:02)
[2024-01-05] MEDS: levoFLOXacin 750 MG TAB PO SCH (13:02)
[2024-01-05] MEDS: HYDROCORTISONE 10 MG TAB PO SCH (13:03)
[2024-01-05] MEDS ORDERED: HYDROCORTISONE 10 MG TAB PO SCH (14:00)
[2024-01-05] MEDS: METOPROLOL XL 25 MG TAB PO SCH (15:14)
[2024-01-05] MEDS: ASPIRIN 325 MG TAB PO ONE (16:31)
[2024-01-05] MEDS ORDERED: DILTIAZEM HCL 125 MG/25 ML VIAL IVP ONE (18:00)
[2024-01-05] MEDS ORDERED: dilTIAZem HCL 25 MG/5 ML VIAL IV ONE (18:04)
[2024-01-05] MEDS ORDERED: HEPARIN/D5W 25,000 UNIT/500 ML BAG IV ONE (18:05)
[2024-01-05] MEDS: dilTIAZem HCL 25 MG/5 ML VIAL IV ONE (18:06)
[2024-01-05] MEDS: HEPARIN/D5W 25,000 UNIT/500 ML BAG IV SCH (18:07)
[2024-01-05] MEDS: DILTIAZEM INJ 125 MG/25 ML 125 MG in NA CHLORIDE 0.9% 100 ML IV SCH (18:12)
[2024-01-05] MEDS ORDERED: clonazePAM 1 MG TAB ONE (21:50)
[2024-01-05] MEDS: ALPRAZOLAM 0.25 MG TABLET PO PRN (23:14)
[2024-01-06] MEDS: dilTIAZem HCL 25 MG/5 ML VIAL IV ONE (04:40)
[2024-01-06] MEDS ORDERED: NA CHLORIDE 0.9% 50 ML ONE (04:46)
[2024-01-06 05:03] LABS: Absolute Lymphocytes (CBC) 1.1 K/uL (0.7-4.9); Hematocrit 33.4 % (36.0-45.0); Lymphocytes % 17.1 % (15.3-44.8); MCV 82.2 fL (80-100); MPV 8.8 fL (7.6-11.3); Platelets 182 thou/uL (152-406); RBC Red Blood Cell Count 4.06 M/uL (3.86-4.86)
[2024-01-06 05:32] LABS: Potassium 3.4 mEq/L (3.5-5.1)
[2024-01-06] MEDS ORDERED: levoFLOXacin 750 MG TAB ONE (08:18)
[2024-01-06] MEDS ORDERED: DULOXETINE 30 MG CAP PO ONE ×2 (08:18→08:19)
[2024-01-06] MEDS: POTASSIUM CL SA 10 MEQ TAB PO ONE (08:23)
[2024-01-06] MEDS: AMLODIPINE 10 MG TAB PO SCH (09:00)
--- NOTE | 2024-01-06 09:02 | P.PN ---
Subjective Date of Service: 01/06/24 Chief Complaint: COPD exacerbation. Pt is resting comfortably in bed. She is in A. fib. HR is 85. Potassium is 3.4. Continue abx for pneumonia. No other issues overnight. Review of Systems Unremarkable General: Unremarkable Eyes: Unremarkable ENT: Unremarkable Respiratory: Unremarkable Cardiovascular: Unremarkable Gastrointestinal: Unremarkable Genitourinary: Unremarkable Musculoskeletal: Unremarkable Integumentary: Unremarkable Neurological: Unremarkable Lymphatics: Unremarkable Physical Examination - Vital Signs Temperature: 97 F Blood Pressure: 134/84 Pulse: 85 Respirations: 17 Pulse Ox (%): 91 - Physical Exam General: Alert, In no apparent distress, Oriented x3 HEENT: Atraumatic, Normocephalic, PERRLA Neck: Supple, 2+ carotid pulse no bruit Respiratory: Clear to auscultation bilaterally, Normal air movement Cardiovascular: No edema, Normal pulses, Regular rate/rhythm, Normal S1 S2 Capillary refill: <2 Seconds Gastrointestinal: Normal bowel sounds, Soft and benign, Non-distended Musculoskeletal: No clubbing, No swelling Integumentary: No rashes, No breakdown Neurological: Normal speech, Normal strength at 5/5 x4 extr, Normal tone, Sensation intact, Cranial nerves 3-12 intact Lymphatics: No axilla or inguinal lymphadenopathy - Studies Microbiology Data (last 24 hrs): 01/03/24 19:42 Throat Group A Streptococcus Rapid Screen - Final 01/03/24 19:42 Throat Culture & Sensitivity - Final NORMAL UPPER RESPIRATORY KIRSTEN GROWN. Assessment And Plan - Plan Pneumonia: Will continue Levaquin. Follow up blood cx. A. fib with RVR: Will continue diltiazem drip, heparin drip and telemetry. Last Echo showed EF 60 - 65%. Consulted Cardiology. NSTEMI: troponin is 348. Will trend troponin Q6h. Continue heparin drip. Consulted Cardiology. Acute COPD exacerbation: Will continue steroid, levaquin, 2L BNC and prn duoneb. Will consult Belt Polisher. Acute resp failure with hypoxia: Due to COPD/Pneumonia. Will continue treatment stated above. Hypokalemia: resolved. K is 3.4<- 3.7 <- 2.6. Will replete and monitor. Will check mag. Hypertension: Will continue home med Hx of [place]'s disease: Will continue stress dose hydrocortisone 40mg po BID. Hypothyroidism: Continue levothyroxine. Hyperlipidemia: Continue statin therapy. Depression: Continue outpatient antidepressant medications. DVT Prophylaxis: Lovenox Code: Full code Disposition: Pending hospital course.
[2024-01-06] MEDS ORDERED: clonazePAM 1 MG TAB ONE ×2 (09:37→21:57)
--- NOTE | 2024-01-06 12:07 | P.PN ---
Subjective Date of Service: 01/06/24 Chief Complaint: COPD exacerbation. Subjective: Improving (Patient is doing better transferred to the ICU due to rapid A-fib history of A-fib) Review of Systems Unremarkable Respiratory: Shortness of Breath Physical Examination - Vital Signs Temperature: 97 F Blood Pressure: 102/58 Pulse: 79 Respirations: 12 Pulse Ox (%): 95 - Physical Exam General: Alert, Oriented x3 Neck: Supple Respiratory: Clear to auscultation bilaterally Cardiovascular: No edema, Regular rate/rhythm, Irregular heart rate/rhythm - Studies Microbiology Data (last 24 hrs): 01/03/24 19:42 Throat Group A Streptococcus Rapid Screen - Final 01/03/24 19:42 Throat Culture & Sensitivity - Final NORMAL UPPER RESPIRATORY KIRSTEN GROWN. Assessment And Plan - Current Problems (Diagnosis) (1) COPD exacerbation Current Visit: Yes Status: Acute Plan: Patient is doing better shortness of breath is improved changed to p.o. prednisone see hydrocortisone (2) Atrial fibrillation Current Visit: Yes Status: Acute Plan: Patient developed rapid A-fib rate is controlled DC levofloxacin no evidence of infection vital signs stable oxygenation satisfactory Qualifiers: Atrial fibrillation type: longstanding persistent Qualified Code(s): I48.11 - Longstanding persistent atrial fibrillation
[2024-01-06] MEDS ORDERED: predniSONE 20 MG TAB ONE ×2 (14:10→21:07)
[2024-01-06] MEDS: predniSONE 20 MG TAB PO SCH (14:13)
--- NOTE | 2024-01-06 17:30 | P.CNS ---
Date of Consult: 01/06/24 Chief Complaint: COPD exacerbation. History of Present Illness: patient with PMH of COPD presented with weakness, SOB, found to be in AF w RVR, pateint mention that this is not the first time that she was told that she got AF Allergies Penicillins Allergy (Verified 02/20/23 15:29) Shortness of breath Sulfa (Sulfonamide Antibiotics) [Sulfa(Sulfonamide Antibiotics)] Allergy (Verified 02/20/23 15:29) Shortness of breath NSAIDS Adverse Reaction (Uncoded 03/16/19 23:40) Kidney Problems Home Medications: Duloxetine HCl 120 mg PO DAILY 08/27/20 Estradiol 2 mg PO BEDTIME 08/27/20 Levothyroxine Sodium 25 mcg PO DAILY 08/27/20 Rosuvastatin Calcium 10 mg PO DAILY 08/27/20 clonazePAM [Klonopin*] 1 mg PO BIDP PRN 08/27/20 Amitriptyline [Elavil*] 150 mg PO BEDTIME 06/05/21 Oxycodone HCl 10 mg PO TID 04/02/22 Alendronate [Fosamax*] 70 mg PO EVERY 7TH DAY 02/20/23 ARIPiprazole [Aripiprazole] 2 mg PO BEDTIME #30 tab 02/24/23 Amlodipine [Norvasc*] 5 mg PO DAILY #30 tab 02/24/23 Eszopiclone [Lunesta] 2 tab PO BEDTIME #60 tab 02/24/23 Fludocortisone 0.1 mg PO DAILY #30 tab 02/24/23 Hydrocortisone [Cortef*] 10 mg PO BID* #60 tab 02/24/23 Metoprolol Tartrate [Lopressor*] 50 mg PO BID* #60 tab 02/24/23 Omeprazole [Prilosec] 1 cap PO DAILY #30 tab 02/24/23 - Past Medical/Surgical History Diabetic: No -: Bruce's -: Irritable Bowel Syndrome -: TIA -: Chronic back pain -: hyperlipidemia -: CVA -: hypothyroidism -: Depression -: Early Dementia -: Cholecystectomy -: Appendectomy -: -: Hysterectomy -: Exploratory laparotomy Psychosocial/ Personal History: Patient lives at home with her sister - Family History Mother Medical History: Stroke, Other (see notes) Notes: Asthma. Rheumatoid Arthritis - Social History Smoking Status: Unknown if ever smoked Alcohol use: No CD- Drugs: No Caffeine use: Yes Review of Systems 10-point ROS is otherwise unremarkable Physical Examination Temp Pulse Resp BP Pulse Ox 96.8 F 98 H 14 140/93 H 93 01/06/24 16:00 01/06/24 16:00 01/06/24 16:00 01/06/24 16:00 01/06/24 16:00 General: Alert, Oriented x3 HEENT: Atraumatic Neck: Supple Respiratory: Crackles/rales Cardiovascular: Other (irregular rate and rhythm), Edema Gastrointestinal: Normal bowel sounds Musculoskeletal: No clubbing - Problems (1) Atrial fibrillation Current Visit: Yes Status: Acute Plan: increase toprol to 25 mg po BID, can give extra dose tonight continue heparin drip. Qualifiers: Atrial fibrillation type: paroxysmal Qualified Code(s): I48.0 - Paroxysmal atrial fibrillation (2) Non-STEMI (non-ST elevated myocardial infarction) Current Visit: No Status: Acute Plan: ASA 81 mg daily Lipitor 40 mg daily Heparin drip will get left/right heart cath and coronary angiogram in am, please keep patient NPO after midnight continue lasix 20 mg IV BID.
[2024-01-06] MEDS: FUROSEMIDE 20 MG/ 2ML VIAL IV SCH (21:00)
[2024-01-06] MEDS: METOPROLOL XL 25 MG TAB PO SCH (21:00)
[2024-01-06] MEDS: DOXYCYCLINE 100 MG CAP PO SCH (21:00)
[2024-01-06] MEDS ORDERED: DOXYCYCLINE 100 MG CAP PO ONE (21:07)
[2024-01-06] MEDS ORDERED: HEPARIN/D5W 25,000 UNIT/500 ML BAG IV ONE (23:24)
[2024-01-07 04:36] LABS: Absolute Lymphocytes (CBC) 0.8 K/uL (0.7-4.9); Hematocrit 32.1 % (36.0-45.0); Lymphocytes % 9.7 % (15.3-44.8); MCV 82.4 fL (80-100); MPV 8.6 fL (7.6-11.3); Platelets 217 thou/uL (152-406)
[2024-01-07 04:48] LABS: Potassium 3.6 mEq/L (3.5-5.1)
[2024-01-07] MEDS: ALENDRONATE 70 MG TAB PO SCH (06:00)
[2024-01-07] MEDS ORDERED: ALENDRONATE 10 MG TAB PO SCH (06:00)
--- NOTE | 2024-01-07 06:54 | ECHO ---
HEIGHT: 5 ft 2 in WEIGHT: 162 lb 0 oz DATE OF STUDY: 01/06/[address]: Siddhartha Son MD 2-DIMENSIONAL: YES M.MODE: YES DOPPLER: YES COLOR FLOW: YES TDS: NO PORTABLE: YES DEFINITY: NO BUBBLE STUDY: NO DIAGNOSIS: RULE OUT CONGESTIVE HEART FAILURE CARDIAC HISTORY: CATHERIZATION: SURGERY: PROSTHETIC VALVE: PACEMAKER: MEASUREMENTS (cm) DIASTOLIC (NORMALS) SYSTOLIC (NORMALS) IVSd 0.8 (0.6-1.2) LA Diam 3.6 (1.9-4.0) LVEF 59% LVIDd 3.5 (3.5-5.7) LVIDs 2.4 (2.0-3.5) %FS 31% LVPWd 0.8 (0.6-1.2) Ao Diam 2.5 (2.0-3.7) 2 DIMENSIONAL ASSESSMENT: RIGHT ATRIUM: NORMAL LEFT ATRIUM: MIDLY DILATED RIGHT VENTRICLE: NORMAL LEFT VENTRICLE: NORMAL TRICUSPID VALVE: TRACE TRICUSPID REGURGITATION MITRAL VALVE: NORMAL PULMONIC VALVE: NORMAL AORTIC VALVE: NORMAL PERICARDIAL EFFUSION: SMALL AORTIC ROOT: NORMAL LEFT VENTRICULAR WALL MOTION: NORMAL DOPPLER/COLOR FLOW: UNABLE TO ESTIMATE DIASTOLIC FUNCTION DUE TO ARRYTHMIA. COMMENTS: 1. NORMAL LEFT VENTRICULAR SYSTOLIC EJECTION FRACTION 55-60%. NORMAL WALL MOTION. 2. MILD DILATED LEFT ATRIUM. 3. NORMAL FILLING PRESSURES. TECHNOLOGIST: Allie BARROS
[2024-01-07] MEDS ORDERED: DOXYCYCLINE 100 MG CAP PO ONE ×2 (07:55→20:36)
[2024-01-07] MEDS ORDERED: predniSONE 20 MG TAB ONE ×2 (07:55→20:36)
[2024-01-07] MEDS ORDERED: DULOXETINE 30 MG CAP PO ONE (07:56)
[2024-01-07] MEDS ORDERED: clonazePAM 1 MG TAB ONE ×2 (08:08→20:37)
--- NOTE | 2024-01-07 11:00 | P.PN ---
Subjective Date of Service: 01/07/24 Chief Complaint: COPD exacerbation. Pt is resting comfortably in bed. She converted to NSR since yesterday. HR is 62. Cardiology will do cardiac cath. Continue abx for pneumonia. No other issues overnight. Review of Systems Unremarkable General: Unremarkable Eyes: Unremarkable ENT: Unremarkable Respiratory: Unremarkable Cardiovascular: Unremarkable Gastrointestinal: Unremarkable Genitourinary: Unremarkable Musculoskeletal: Unremarkable Integumentary: Unremarkable Neurological: Unremarkable Lymphatics: Unremarkable Physical Examination - Vital Signs Temperature: 97.1 F Blood Pressure: 141/59 Pulse: 71 Respirations: 17 Pulse Ox (%): 96 - Physical Exam General: Alert, In no apparent distress, Oriented x3 HEENT: Atraumatic, Normocephalic, PERRLA Neck: Supple, 2+ carotid pulse no bruit Respiratory: Clear to auscultation bilaterally, Normal air movement Cardiovascular: No edema, Normal pulses, Regular rate/rhythm, Normal S1 S2 Capillary refill: <2 Seconds Gastrointestinal: Normal bowel sounds, Soft and benign, Non-distended Musculoskeletal: No clubbing, No swelling Integumentary: No rashes, No breakdown Neurological: Normal gait, Normal speech, Normal strength at 5/5 x4 extr, Normal tone, Sensation intact, Cranial nerves 3-12 intact Lymphatics: No axilla or inguinal lymphadenopathy - Studies Microbiology Data (last 24 hrs): 01/03/24 19:42 Throat Group A Streptococcus Rapid Screen - Final 01/03/24 19:42 Throat Culture & Sensitivity - Final NORMAL UPPER RESPIRATORY KIRSTEN GROWN. Assessment And Plan - Plan Pneumonia: Will continue doxy. Off Levaquin. Follow up blood cx. A. fib with RVR: Will continue diltiazem drip, heparin drip and telemetry. Last Echo showed EF 60 - 65%. Consulted Cardiology. NSTEMI: troponin is 348. Will trend troponin Q6h. Continue heparin drip. Cardi ology will do cardiac cath today. Acute COPD exacerbation: Will continue steroid, doxy, prn duoneb and oxygen. Consulted Gore Inserter. Acute resp failure with hypoxia: Due to COPD/Pneumonia. Will continue treatment stated above. Hypokalemia: resolved. K is 3.6 <- 3.4<- 3.7 <- 2.6. Will replete and monitor. Will check mag. Hypertension: Will continue home med Hx of [place]'s disease: Will continue stress dose prednisone 20mg po BID. Hypothyroidism: Continue levothyroxine. Hyperlipidemia: Continue statin therapy. Depression: Continue outpatient antidepressant medications. DVT Prophylaxis: Lovenox Code: Full code Disposition: Pending hospital course.
[2024-01-07] MEDS: NA CHLORIDE 0.9% 500 ML ONE (13:47)
[2024-01-07] MEDS ORDERED: LIDOCAINE 1% 20 ML MDV ONE (14:29)
[2024-01-07] MEDS ORDERED: VERAPAMIL HCL 10 MG/4 ML VIAL IV ONE (14:29)
[2024-01-07] MEDS ORDERED: HEPA 1000U/500MLS 2,000 UNIT/1,000 ML BAG IV ONE (14:29)
[2024-01-07] MEDS ORDERED: FENTANYL CITR 100 MCG/2 ML ONE (14:30)
[2024-01-07] MEDS ORDERED: MIDAZOLAM HCL 2 MG/2 ML INJ ONE (14:30)
[2024-01-07] MEDS ORDERED: HEPARIN 5000 UNIT/ML 1 ML VIAL ONE (14:31)
[2024-01-07] MEDS ORDERED: ATROPINE SULF 1 MG/10 ML SYR IV ONE (14:31)
[2024-01-07] MEDS ORDERED: TICAGRELOR 90 MG TABLET PO ONE (14:31)
[2024-01-07] MEDS ORDERED: HEPARIN 10,000 UNIT/10 ML VIAL IV ONE (14:31)
[2024-01-07] MEDS ORDERED: CLOPIDOGREL 75 MG TABLET ONE (14:32)
[2024-01-07] MEDS ORDERED: ASPIRIN 325 MG TAB ONE (14:32)
[2024-01-07] MEDS ORDERED: NITROGLYCERIN/D5W 25 MG/250 ML BTL IV ONE (14:34)
--- NOTE | 2024-01-07 14:44 | EKG ---
Test Date: 2024-01-05 Test Time: 17:41:19 Waiter/Waitress Room Service: MEASUREMENT RESULTS: Intervals: Rate: 131 IA: QRSD: 106 QT: 342 QTc: 505 [place]: P: IA: QRS: 20 T: 202 INTERPRETIVE STATEMENTS: Atrial fibrillation with rapid ventricular response Minimal voltage criteria for LVH, may be normal variant Marked ST abnormality, possible inferolateral subendocardial injury Abnormal ECG Compared to ECG 01/03/2024 19:31:06 Left ventricular hypertrophy now present ST (T wave) deviation now present Sinus rhythm no longer present Atrial premature complex(es) no longer present Myocardial infarct finding no longer present Electronically Signed On 01-07-24 14:41:34 SCARF AND ANNEAL OPERATOR by Gavin Howe
--- NOTE | 2024-01-07 14:44 | EKG ---
Test Date: 2024-01-05 Test Time: 17:41:57 Cnc Programmer: MEASUREMENT RESULTS: Intervals: Rate: 138 PA: QRSD: 108 QT: 346 QTc: 524 [place]: P: PA: QRS: 19 T: 205 INTERPRETIVE STATEMENTS: Atrial fibrillation with rapid ventricular response with premature ventricular or aberrantly conducted complexes Moderate voltage criteria for LVH, may be normal variant Marked ST abnormality, possible inferolateral subendocardial injury Abnormal ECG Compared to ECG 01/03/2024 19:31:06 Ventricular premature complex(es) now present Left ventricular hypertrophy now present ST (T wave) deviation now present Sinus rhythm no longer present Atrial premature complex(es) no longer present Myocardial infarct finding no longer present Electronically Signed On 01-07-24 14:41:31 FEATHER MAKER by Gavin Howe
--- NOTE | 2024-01-07 17:15 | P.PN ---
Subjective Date of Service: 01/07/24 Chief Complaint: Atrial fibrillation Subjective: No new changes Review of Systems 10-point ROS is otherwise unremarkable Physical Examination - Vital Signs Temperature: 97.1 F Blood Pressure: 149/76 Pulse: 66 Respirations: 13 Pulse Ox (%): 92 - Physical Exam General: Alert, Oriented x3 HEENT: Atraumatic, Normocephalic Neck: Supple Respiratory: Clear to auscultation bilaterally Cardiovascular: Normal S1 S2 Gastrointestinal: Normal bowel sounds Musculoskeletal: No clubbing Assessment And Plan - Current Problems (Diagnosis) (1) Atrial fibrillation Current Visit: Yes Status: Acute Plan: continue toprol 25 mg po BID. start Eliquis 5 mg po BID. (first dose tomorrow) switch lasix to 20 mg po BID Qualifiers: Atrial fibrillation type: paroxysmal Qualified Code(s): I48.0 - Paroxysmal atrial fibrillation (2) Non-STEMI (non-ST elevated myocardial infarction) Current Visit: No Status: Acute Plan: Lipitor 40 mg daily
[2024-01-07] MEDS ORDERED: ALPRAZOLAM 0.25 MG TABLET ONE (20:36)
--- NOTE | 2024-01-08 00:37 | OP ---
Date of Procedure: 01/07/2024 Surgeon: TATO JACOBO Procedures Performed: 1.Selective coronary angiogram. 2.Left heart catheterization. 3.Right heart catheterization. Indications: CHF and elevated troponin with chest pain suggestive of [id number] myocardial inf arction. Access: 1.Right radial artery 6-[place], closed with TR band. 2.Right IJ 7-[place], closed with manual pressure. Complications: None. Bleeding: Less than 20 mL. Anesthesia: Total sedation time was 50 minutes. Description Of Procedure: After risks, benefits, and alternatives were explained, the patient agreed to procedure and signed informed consent. The patient was brought into cardiac catheterization [facility], prepped and draped in usual sterile fashion. Then, I accessed right radial artery using pedi atric micropuncture kit, placed a 6-[place] slender sheath, and accessed right IJ using micropuncture kit and ultrasound guidance, and placed a 7-[place] pinnacle sheath, took a 7-[place] balloon-tipped Sw an catheter through the IJ access through right atrium, right ventricle, pulmonary artery and wedge, obtained waveform and pressure as well as thermodilution cardiac output was obtained. Then, [place] was removed. Then, I took a 5-[place] tiger 4 catheter through the radial access into the aortic root ov er a J-wire, engaged left main, took standard views and then RCA, took standard views, and over the w jayme, catheter was pushed in the LV, measured LVEDP. Pullback did not record any gradient and then re moved the catheter and the sheath, placed TR band with good hemostasis. IJ sheath was removed and ma nual pressure was applied with good hemostasis. Findings: Coronary angiogram: 1.Left main is normal. 2.LAD; proximal 30% stenosis, diffuse, and the mid and the distal appears normal. Normal diagonal b ranches. 3.Left circumflex, normal, large vessel. 4.RCA, [id number] size vessel and it is dominant and it is normal. 5.LVEDP, borderline elevated at 40 mmHg. Right heart catheterization numbers: RA pressure is 6, RV pressure is 22/2, mean of 6, PA pressure i s 23/12, mean of 17. Pulmonary artery pressure was 10. The LVEDP was 14 mmHg. Cardiac output was 4 .35 L/minute. Conclusions: 1.Very mild nonobstructive coronary artery disease. 2.Mildly elevated left-sided filling pressure, probably diastolic dysfunction. Recommendation: Medical management. SR/MODL Voice ID: [id number] Report ID: [id number]
[2024-01-08] MEDS ORDERED: predniSONE 20 MG TAB ONE (08:27)
[2024-01-08] MEDS ORDERED: DOXYCYCLINE 100 MG CAP PO ONE (08:27)
[2024-01-08] MEDS ORDERED: DULOXETINE 30 MG CAP PO ONE (08:28)
[2024-01-08] MEDS: APIXABAN 5 MG TABLET PO SCH (08:30)
[2024-01-08] MEDS ORDERED: clonazePAM 1 MG TAB ONE (08:32)
[2024-01-08 09:11] VITALS: O2SAT 97
--- NOTE | 2024-01-08 10:18 | P.PN ---
Subjective Date of Service: 01/08/24 Chief Complaint: Atrial fibrillation Pt is resting comfortably in bed. She converted to NSR on 01/06/24. HR is 64 but BP is elevated. Cardiology did cardiac cath which showed non-obstructive CAD. Continue abx for pneumonia. No other issues overnight. Review of Systems Unremarkable General: Unremarkable Eyes: Unremarkable ENT: Unremarkable Respiratory: Unremarkable Cardiovascular: Unremarkable Gastrointestinal: Unremarkable Genitourinary: Unremarkable Musculoskeletal: Unremarkable Integumentary: Unremarkable Neurological: Unremarkable Lymphatics: Unremarkable Physical Examination - Vital Signs Temperature: 97.8 F Blood Pressure: 183/65 Pulse: 64 Respirations: 14 Pulse Ox (%): 99 - Physical Exam General: Alert, In no apparent distress, Oriented x3 HEENT: Atraumatic, Normocephalic, PERRLA Neck: Supple, 2+ carotid pulse no bruit Respiratory: Clear to auscultation bilaterally, Normal air movement Cardiovascular: No edema, Normal pulses, Regular rate/rhythm, Normal S1 S2 Capillary refill: <2 Seconds Gastrointestinal: Normal bowel sounds, Soft and benign, Non-distended Musculoskeletal: No clubbing, No swelling Integumentary: No rashes, No breakdown Neurological: Normal gait, Normal speech, Normal strength at 5/5 x4 extr, Normal tone, Sensation intact, Cranial nerves 3-12 intact Lymphatics: No axilla or inguinal lymphadenopathy Assessment And Plan - Plan Pneumonia: Will continue doxy. Off Levaquin. Follow up blood cx. A. fib with RVR: Will continue metoprolol, eliquis, and telemetry. Last Echo showed EF 60 - 65%. Consulted Cardiology. NSTEMI: troponin is 348 <- 437. Will trend troponin Q6h. Continue heparin drip. Cardiology did cardiac cath on 03/07/24 which showed non-obstructive CAD. Will continue medical therapy. Acute COPD exacerbation: Will continue steroid, doxy, prn duoneb and oxygen. Consulted Kiln Firer Helper. Acute resp failure with hypoxia: Due to COPD/Pneumonia. Will continue treatment stated above. Hypokalemia: resolved. K is 3.6 <- 3.4<- 3.7 <- 2.6. Will replete and monitor. Will check mag. Hyponatremia: Na is 134. Will continue IVF and monitor Na level. Hypertension: Will continue metoprolol with prn iv hydralazine. Hx of [place]'s disease: Will continue stress dose prednisone 20mg po BID. Hypothyroidism: Continue levothyroxine. Hyperlipidemia: Continue statin therapy. Depression: Continue outpatient antidepressant medications. DVT Prophylaxis: Lovenox Code: Full code Disposition: Pending hospital course.
--- NOTE | 2024-01-08 11:07 | P.PN ---
Subjective Date of Service: 01/08/24 Chief Complaint: Atrial fibrillation COPD exacerbation Subjective: Improving (Patient is doing better no complaints s/p cardiac) Review of Systems Unremarkable General: Weakness Respiratory: Shortness of Breath Physical Examination - Vital Signs Temperature: 97.8 F Blood Pressure: 183/65 Pulse: 64 Respirations: 14 Pulse Ox (%): 99 - Physical Exam General: Alert, Oriented x3 Respiratory: Clear to auscultation bilaterally, Diminished Cardiovascular: No edema, Regular rate/rhythm, Normal S1 S2 Gastrointestinal: Normal bowel sounds, Soft and benign Assessment And Plan - Current Problems (Diagnosis) (1) COPD exacerbation Current Visit: Yes Status: Acute Plan: Patient admitted with COPD exacerbation doing well cardiac cath shows minimal coronary artery disease medical management normal left ventricular ejection fraction (2) Atrial fibrillation Current Visit: Yes Status: Acute Plan: Patient developed rapid A-fib rate is controlled stable for discharge blood pressure is elevated oxygenation satisfactory Qualifiers: Atrial fibrillation type: paroxysmal Qualified Code(s): I48.0 - Paroxysmal atrial fibrillation
[2024-01-08 12:34] VITALS: TEMP 97.7
--- NOTE | 2024-01-08 13:54 | P.DS ---
Admission Date: 01/03/24 Discharge Date: 01/08/24 Disposition: ROUTINE DISCHARGE Discharge Condition: GOOD Reason for Admission: Atrial fibrillation COPD exacerbation Brief History of Present Illness: 68-year-old female patient past medical history significant for irritable bowel syndrome, hypertension, history of COPD, hyperlipidemia, hypothyroidism and hypertension was evaluated for episode of lethargy and shortness of breath. She reports significant lethargy shortness of breath and cough with some congestion and imaging done in the ER was concerning for bronchitis/early onset pneumonia. There is also concerns for COPD exacerbation. She was started on IV steroid and she was admitted for inpatient care. She also had a dose of antibiotic given. Initial lab revealed significantly low potassium of 2.6 for which she was s tarted on repletion protocol. Hospital Course: Pt is a 68 yo female with past medical history of irritable bowel syndrome, hypertension, history of COPD, hyperlipidemia, hypothyroidism and hypertension who presented with lethargy, shortness of breath, and cough with some congestion. Imaging study in the ER was concerning for bronchitis/early onset pneumonia. There was also concerns for COPD exacerbation and we started IV steroid/ levaquin and admitted her for inpatient care. Initial lab revealed significantly low potassium of 2.6 and we repleted. Pt later developed chest discomfort and palpitation. the levaquin was later switched to doxycycline. EKG showed A. fib with RVR and her troponin was elevated. we transferred pt to the ICu for diltiazem drip and heparin drip. Cardiology did Cardiac cath which showed non-obstructive CAD. Pt was advised to continue medical therapy. We later weaned her off diltiazem drip and continue metoprolol and eliquis. We continued home meds for other chronic medical problems. Pt was in NAD prior to discharge. Vital Signs/Physical Exam: Temp Pulse Resp BP Pulse Ox 97.7 F 64 16 137/66 97 01/08/24 12:00 01/08/24 11:07 01/08/24 12:00 01/08/24 12:00 01/08/24 12:00 Laboratory Data at Discharge: WBC 8.40 thou/uL (4.3-10.9) 01/07/24 04:17 Hgb 11.2 g/dL (12.0-15.0) L 01/07/24 04:17 Hct 32.1 % (36.0-45.0) L 01/07/24 04:17 Plt Count 217 thou/uL (152-406) 01/07/24 04:17 PT 11.6 SECONDS (9.5-12.5) 01/03/24 20:05 INR 1.06 01/03/24 20:05 APTT 27.7 SECONDS (24.3-36.9) 01/08/24 04:21 Sodium 134 mEq/L (136-145) L 01/07/24 04:17 Potassium 3.6 mEq/L (3.5-5.1) 01/07/24 04:17 BUN 17 mg/dL (7-18) 01/07/24 04:17 Creatinine 1.16 mg/dL (0.55-1.02) H 01/07/24 04:17 Glucose 171 mg/dL (74-106) H 01/07/24 04:17 Magnesium Cancelled 01/05/24 Unknown Total Bilirubin 0.3 mg/dL (0.2-1.0) 01/03/24 20:05 AST 21 U/L (15-37) 01/03/24 20:05 ALT 32 U/L (13-56) 01/03/24 20:05 Alkaline Phosphatase 92 U/L (45-117) 01/03/24 20:05 Home Medications: Duloxetine HCl 120 mg PO DAILY 08/27/20 Estradiol 2 mg PO BEDTIME 08/27/20 Levothyroxine Sodium 25 mcg PO DAILY 08/27/20 Rosuvastatin Calcium 10 mg PO DAILY 08/27/20 clonazePAM [Klonopin*] 1 mg PO BIDP PRN 08/27/20 Amitriptyline [Elavil*] 150 mg PO BEDTIME 06/05/21 Oxycodone HCl 10 mg PO TID 04/02/22 Alendronate [Fosamax*] 70 mg PO EVERY 7TH DAY 02/20/23 ARIPiprazole [Aripiprazole] 2 mg PO BEDTIME #30 tab 02/24/23 Amlodipine [Norvasc*] 5 mg PO DAILY #30 tab 02/24/23 Eszopiclone [Lunesta] 2 tab PO BEDTIME #60 tab 02/24/23 Fludocortisone 0.1 mg PO DAILY #30 tab 02/24/23 Hydrocortisone [Cortef*] 10 mg PO BID* #60 tab 02/24/23 Metoprolol Tartrate [Lopressor*] 50 mg PO BID* #60 tab 02/24/23 Omeprazole [Prilosec] 1 cap PO DAILY #30 tab 02/24/23 Apixaban [Eliquis] 5 mg PO BID 30 Days #60 tab 01/08/24 Doxycycline Hyclate 100 mg PO BID 3 Days #6 tab 01/08/24 Metoprolol Succinate [Toprol Xl*] 25 mg PO BID 30 Days #60 tab 01/08/24 New Medications: Doxycycline Hyclate 100 mg PO BID 3 Days #6 tab Apixaban [Eliquis] 5 mg PO BID 30 Days #60 tab Metoprolol Succinate [Toprol Xl*] 25 mg PO BID 30 Days #60 tab Physician Discharge Instructions: Continue ad hossein activity. Take metoprolol, eliquis, doxycycline and other home meds as prescribed. Follow up with PCP within 1 -2 weeks Diet: AHA Activity: Ad hossein Followup: NONE,NONE [Primary Care Provider] -
[2024-01-08 15:24] VITALS: BP 160/92
== END 2024-01-08 14:35 | disposition home or self-care (01) | DRG 193 ==
LOC: ER 19:10 → 2ND 21:59 → 3RD-ICU 01-05 18:02
PROVIDERS: ADMIT Internal Medicine Nephrology; ATTEND Hospitalist
PROC: 4A023N8 Measurement of Cardiac Sampling and Pressure, Bilateral, Percutaneous Approach (ICD-10-PCS; principal; 2024-01-07)
PROC: B2111ZZ Fluoroscopy of Multiple Coronary Arteries using Low Osmolar Contrast (ICD-10-PCS; 2024-01-07)
DX: J18.9 Pneumonia, unspecified organism (principal); I21.4 Non-ST elevation (NSTEMI) myocardial infarction; J96.01 Acute respiratory failure with hypoxia; J44.0 Chronic obstructive pulmonary disease with (acute) lower respiratory infection; J44.1 Chronic obstructive pulmonary disease with (acute) exacerbation; E27.1 Primary adrenocortical insufficiency; I48.11 Longstanding persistent atrial fibrillation; J45.41 Moderate persistent asthma with (acute) exacerbation; I10 Essential (primary) hypertension; F32.A Depression, unspecified; E87.6 Hypokalemia; E78.5 Hyperlipidemia, unspecified; E03.9 Hypothyroidism, unspecified; I25.10 Atherosclerotic heart disease of native coronary artery without angina pectoris; Z88.0 Allergy status to penicillin; Z88.2 Allergy status to sulfonamides; Z88.8 Allergy status to other drugs, medicaments and biological substances; Z90.49 Acquired absence of other specified parts of digestive tract; Z11.52 Encounter for screening for COVID-19; Z79.01 Long term (current) use of anticoagulants; Z86.73 Personal history of transient ischemic attack (TIA), and cerebral infarction without residual deficits; Z79.890 Hormone replacement therapy; Z79.899 Other long term (current) drug therapy; Z90.710 Acquired absence of both cervix and uterus
CPT/HCPCS: 36415; 36600; 70450; 71045; 76937; 80048; 80053; 82550; 82805; 83605; 83735; 84145; 84484; 85025; 85610; 85730; 87040; 87070; 87081; 87804; 87811; 93005; 93306; 93460; 94640; 96365; 96375; 99152; 99153; 99285; C1893; J0360; J0461; J0696; J1644; J1650; J1940; J2001; J2250; J2930; J3010; J3480; J7030; J7040; J7050; J7512; J7614; Q9966

== ENCOUNTER 2024-10-05 10:24 | Emergency (ER) | payer OTHER ==
--- OUTSIDE RECORDS SUMMARY | 2024-10-05 10:28 | XMS REPORT | Continuity of Care Document ---
Author Name Unknown Address [address] 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 Role Phone JOSIE HILARIO Primary Care Physician Unavailab Gavin Dale Attending Clinician Unavailable LIZBETH CARDENAS Attending Clinician Unavailable Lab, Ang - Db Attending Clinician Unavailable Lizbeth Cardenas MD Attending Clinician [phone] Lizbeth Cardenas MD Attending Clinician [phone] Jolanta Lee MD Attending Clinician [phone] JOLANTA LEE Attending Clinician Unavailable JERONIMO MANZANO Attending Clinician Unavailable Lab, Ang - Db Attending Clinician Unavailable RADIOLOGY Attending Clinician Unavailable Radiology Attending Clinician Unavailable Doctor Unassigned, [place] Attending Clinician U Ирина Ko Attending Clinician ИРИНА ORTIZ Attending Clinician Unavailable VIKKI DONATO Attending Clinician Unavaildora Donato MD, Vikki Moon Attending Clinician [phone], [facility] Attending Clinician Unavailable Unknown, Attending Attending Clinician Unavailab CARLITA Fajardo Attending Clinician Unavailable Jenane TREADWELL, Jesus Jolly Attending Clinician [phone] JESUS NEWMAN Attending Clinician Unavaildora Mcdonnell MD, Marychuy Ferreira Attending Clinician Dillon Pateliaz RD, Joyce Attending Clinician [phone] Physician, No Primary or Family Admitting Clinic agus Unavailable Gavin Howe Admitting Clinician Unavailable JOSIE HILARIO Admitting Clinician Unavailable ИРИНА ORTIZ Admitting Clinician Unavailable Payers Payer Name Policy Type Policy Number Effective Date Expirati on Date Source [facility] MEDICARE ADVANTAGE [id number] 2021 00:00:00 2024 00:00:00 [employer] MED[employer] ADVANTAGE [id number] 2023 00:00:00 [facility] MEDICARE COMPLETE CHOICE [id number] 2019 00:00:00 Problems Condition Name Condition Details Condition Category Status Onset Date Resolution Date Last Treatment Date Treating Clinician Comments Source Age-relate d osteoporos is without current pathologic al fracture Age-relate d osteoporos is without current pathologic al fracture Disease Active 07-01 00:00: 00 [facility] Subclinica l hypothyroi dism Subclinica l hypothyroi dism Disease Active 07-01 00:00: 00 [facility] Prediabete s Prediabete s Disease Active 07-01 00:00: 00 [facility] 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 01-11 00:00: 00 [facility] Chest pain Chest pain Disease Active 01-11 00:00: 00 [facility] Obesity (BMI 30-39.9) Obesity (BMI 30-39.9) Disease Active 01-11 00:00: 00 [facility] 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 Disease Active 06-09 00:00: 00 [facility] Abnormal thyroid blood test Abnormal thyroid blood test Disease Active 06-09 00:00: 00 [facility] [place] disease Bruce disease Disease Active 06-09 00:00: 00 [facility] Allergies, Adverse Reactions, Alerts Allergy Name Allergy Type Status Severity Reaction(s) Onset Date Inactive Date Treating Clinician Comments Source No Known Allergie s DA Active U 08-08 00:00: 00 [facility] Penicill ins Propensi ty to adverse reaction s Active Anaphylaxis 2006-11 00:00: 00 [facility] Sulfa (Sulfona mide Antibiot ics) Propensi ty to adverse reaction s Active Anaphylaxis 2006-11 00:00: 00 [facility] Penicill ins Propensi ty to adverse reaction s Active Anaphylaxis 2006-11 00:00: 00 [facility] PENICILL INS Drug Class Active Anaphylaxis 2006-11 0 00:00: 00 [facility] SULFA (SULFONA MIDE ANTIBIOT ICS) Drug Class Active Anaphylaxis 2006-11 00:00: 00 [facility] Social History Social Habit Start Date Stop Date Quantity Comments Source History of tobacco use Current smoker [facility] Gender identity [facility] Alcoholic beverage intake 2023-09-29 00:00:00 2023-09-29 00:00:00 Lifetime non-drinker (finding) [facility] Alcohol intake 2023-09-29 00:00:00 2023-09-29 00:00:00 Lifetime non-drinker (finding) [facility] History of Social function 2023-09-08 00:00:00 2023-09-08 00:00:00 [facility] Exposure to SARS-CoV-2 (event) 2023-03-16 00:00:00 2023-03-26 11:31:00 Not sure [facility] Tobacco use and exposure 2021-05-03 00:00:00 2021-05-03 00:00:00 Smokeless tobacco non-user [facility] Sex assigned at 1955 00:00:00 1955 00:00:00 [facility] Smoking Status Start Date Stop Date Source Ex-smoker 2021-05-03 00:00:00 2021-05-03 00:00:00 U [facility] Medications Ordered Medication Name Filled Medication Name Start Date Stop Date Current Medication? Ordering Clinician Indication Dosage Frequency Signature (SIG) Comments Components Source alendronate 70 mg tablet 03-08 00:00: 00 Yes [id number] 70mg Take 1 tablet by mouth weekly. [facility] fludrocorti sone 0.1 mg tablet 03-08 00:00: 00 Yes [id number] .1mg Take 1 tablet by mouth in the morning. [facility] hydrocortis one 10 mg tablet 03-08 00:00: 00 Yes [id number] TAKE 1.5 TABLETS BY MOUTH EVERY MORNING AND 1/2 TABLET AT 2 PM EVERY DAY AND TAKE AN EXTRA TABLET ON SICK DAYS [facility] levothyroxi ne 25 mcg tablet 03-08 00:00: 00 Yes [id number] 25ug Take 1 tablet by mouth every morning. [facility] levothyroxi ne 25 mcg tablet 02-21 00:00: 00 03-08 00:00 :00 No [id number] 25ug TAKE 1 TABLET BY MOUTH EVERY MORNING [facility] LINZESS 290 mcg Cap 2022-11 00:00: 00 Yes [id number] 290ug TAKE 1 CAPSULE BY MOUTH IN THE MORNING [facility] BABY ASPIRIN ORAL 2022-11 13:10: 10 Yes 81mg Take 81 mg by mouth. [facility] rosuvastati n 10 mg tablet 2022-11 13:10: 10 Yes 10mg Take 1 tablet by mouth at bedtime. [facility] DULoxetine 60 mg capsule 2022-11 13:10: 10 Yes 60mg Take 1 capsule by mouth in the morning. [facility] estradiol 2 mg tablet 2022-11 13:10: 10 Yes 2mg Take 1 tablet by mouth in the morning. [facility] melatonin 10 mg Tab 2022-11 13:10: 10 Yes 10mg Take 10 mg by mouth. [facility] clonazePAM 2 mg tablet 2022-11 13:10: 10 Yes 2mg Take 1 tablet by mouth in the morning and 1 tablet at noon and 1 tablet in the evening. [facility] benzonatate (TESSALON PERLES) 100 mg capsule 2022-11 00:00: 00 Yes [id number] Take 1-2 capsules three times a day as needed for cough. [facility] promethazin e-dextromet horphan 6.25-15 mg/5 mL syrup 2022-11 00:00: 00 Yes [id number] 5mL Take 5 mL by mouth 4 (four) times daily as needed for Cough. [facility] linaCLOtide (LINZESS) 290 mcg Cap 2022-11 00:00: 00 10-30 00:00 :00 No [id number] 290ug Take 1 capsule by mouth in the morning. [facility] alendronate 70 mg tablet 2022-11 00:00: 00 03-08 00:00 :00 No [id number] 70mg Take 1 tablet by mouth weekly. [facility] fludrocorti sone 0.1 mg tablet 2022-11 00:00: 00 03-08 00:00 :00 No [id number] .1mg Take 1 tablet by mouth in the morning. [facility] hydrocortis one 10 mg tablet 2022-11 00:00: 00 03-08 00:00 :00 No [id number] TAKE 1.5 TABLETS BY MOUTH EVERY MORNING AND 1/2 TABLET AT 2 PM EVERY DAY AND TAKE AN EXTRA TABLET ON SICK DAYS [facility] levothyroxi ne 25 mcg tablet 2022-11 0 00:00: 00 02-21 00:00 :00 No [id number] 25ug Take 1 tablet by mouth every morning. [facility] hydrocortis one 10 mg tablet 0 7-31 00:00: 00 09-08 00:00 :00 No [id number] TAKE 1.5 TABLETS BY MOUTH EVERY MORNING AND 1/2 TABLET AT 2 PM EVERY DAY AND TAKE AN EXTRA TABLET ON SICK DAYS [facility] ALENDRONATE 70 mg tablet 0 6-17 00:00: 00 09-08 00:00 :00 No [id number] 70mg TAKE 1 TABLET BY MOUTH WEEKLY [facility] FLUDROCORTI SONE 0.1 mg tablet 0 5-04 00:00: 00 09-08 00:00 :00 No [id number] .1mg TAKE 1 TABLET BY MOUTH IN THE MORNING [facility] LEVOTHYROXI NE 25 mcg tablet 0 5-04 00:00: 00 09-08 00:00 :00 No [id number] 25ug TAKE 1 TABLET BY MOUTH EVERY MORNING [facility] alendronate 70 mg tablet 0 4-26 00:00: 00 05-09 00:00 :00 No [id number] 70mg TAKE 1 TABLET BY MOUTH WEEKLY [facility] hydrocortis one 10 mg tablet 0 4-03 00:00: 00 06-22 00:00 :00 No [id number] TAKE 1.5 TABLETS BY MOUTH EVERY MORNING AND 1/2 TABLET AT 2 PM EVERY DAY AND TAKE AN EXTRA TABLET ON SICK DAYS [facility] hydrocortis one 10 mg tablet 2021-11 2-11 00:00: 00 02-23 00:00 :00 No [id number] TAKE 1.5 TABLETS BY MOUTH EVERY MORNING AND 1/2 TABLET AT 2 PM EVERY DAY AND TAKE AN EXTRA TABLET ON SICK DAYS [facility] LEVOTHYROXI NE 25 mcg tablet 2021-11 1-28 00:00: 00 03-26 00:00 :00 No [id number] 25ug TAKE 1 TABLET BY MOUTH EVERY MORNING [facility] fludrocorti sone 0.1 mg tablet 0 8-09 00:00: 00 03-26 00:00 :00 No [id number] .1mg Take 1 tablet by mouth in the morning. [facility] alendronate 70 mg tablet 07-01 00:00: 00 03-18 00:00 :00 No [id number] 70mg Take 1 tablet by mouth weekly. [facility] fludrocorti sone 0.1 mg tablet 07-01 00:00: 00 07-01 00:00 :00 No [id number] .2mg Take 2 tablets by mouth in the morning. [facility] LEVOTHYROXI NE 25 mcg tablet 05-10 00:00: 00 10-20 00:00 :00 No [id number] 25ug TAKE 1 TABLET BY MOUTH EVERY MORNING [facility] hydrocortis one 10 mg tablet 05-04 00:00: 00 11-02 00:00 :00 No [id number] TAKE 2 TABLETS BY MOUTH EVERY MORNING AND 1 TABLET AT 2 PM EVERY DAY AND TAKE AN EXTRA TABLET ON SICK DAYS [facility] OZEMPIC 0.25 mg or 0.5 mg(2 mg/1.5 mL) PnIj 04-14 00:00: 00 Yes [facility] ARIPiprazol e 2 mg tablet 04-14 00:00: 00 Yes [facility] LINZESS 145 mcg capsule 04-14 00:00: 00 09-29 00:00 :00 No [facility] rosuvastati n 10 mg tablet 2020-11 10:28: 48 Yes 10mg Take 1 tablet by mouth at bedtime. [facility] melatonin 10 mg Tab 2020-11 10:28: 00 Yes 10mg Take 10 mg by mouth. [facility] DULoxetine 60 mg capsule 2020-11 10:27: 59 Yes 60mg Take 1 capsule by mouth in the morning. [facility] estradiol 2 mg tablet 2020-11 10:27: 59 Yes 2mg Take 1 tablet by mouth in the morning. [facility] BABY ASPIRIN ORAL 2020-11 10:27: 58 Yes 81mg Take 81 mg by mouth. [facility] clonazePAM 2 mg tablet 2020-11 10:27: 58 Yes 2mg Take 1 tablet by mouth in the morning and 1 tablet at noon and 1 tablet in the evening. [facility] metoprolol tartrate 37.5 mg Tab 2020-11 00:00: 00 Yes 37.5mg Take 37.5 mg by mouth daily. [facility] ALENDRONATE 70 mg tablet 2020-11 00:00: 00 07-01 00:00 :00 No [id number] 70mg TAKE 1 TABLET BY MOUTH WEEKLY [facility] Oxycodone 10 mg Tab 12-31 00:00: 00 Yes [facility] zaleplon 5 mg capsule 12-03 00:00: 00 Yes [facility] amitriptyli ne 100 mg tablet 05-23 00:00: 00 Yes 200mg Take 2 tablets by mouth at bedtime. [facility] omeprazole 20 mg capsule 05-07 00:00: 00 Yes 20mg Take 1 capsule by mouth in the morning. [facility] ALPRAZolam 1 mg tablet 03-17 00:00: 00 Yes 1mg Take 1 tablet by mouth in the morning. [facility] Immunizations Ordered Immunization Name Filled Immunization Name Date Status Comments Source SARS-COV-2 COVID-19 PFIZER VACCINE 2021-02-04 00:00:00 Completed [facility] SARS-COV-2 COVID-19 PFIZER VACCINE 2021-02-04 00:00:00 Completed [facility] SARS-COV-2 COVID-19 PFIZER VACCINE 2021-02-04 00:00:00 Completed [facility] SARS-COV-2 COVID-19 PFIZER VACCINE 2021-02-04 00:00:00 Completed [facility] SARS-COV-2 COVID-19 PFIZER VACCINE 2021-02-04 00:00:00 Completed [facility] SARS-COV-2 COVID-19 PFIZER VACCINE 2021-02-04 00:00:00 Completed [facility] SARS-COV-2 COVID-19 PFIZER VACCINE 2021-02-04 00:00:00 Completed [facility] SARS-COV-2 COVID-19 PFIZER VACCINE 2021-02-04 00:00:00 Completed [facility] SARS-COV-2 COVID-19 PFIZER VACCINE 2021-02-04 00:00:00 Completed [facility] SARS-COV-2 COVID-19 PFIZER VACCINE 2021-02-04 00:00:00 Completed [facility] SARS-COV-2 COVID-19 PFIZER VACCINE 2021-02-04 00:00:00 Completed [facility] SARS-COV-2 COVID-19 PFIZER VACCINE 2021-02-04 00:00:00 Completed [facility] SARS-COV-2 COVID-19 PFIZER VACCINE 2021-02-04 00:00:00 Completed [facility] SARS-COV-2 COVID-19 PFIZER VACCINE 2021-02-04 00:00:00 Completed [facility] SARS-COV-2 COVID-19 PFIZER VACCINE 2021-02-04 00:00:00 Completed [facility] SARS-COV-2 COVID-19 PFIZER VACCINE 2021-01-14 00:00:00 Completed [facility] SARS-COV-2 COVID-19 PFIZER VACCINE 2021-01-14 00:00:00 Completed [facility] SARS-COV-2 COVID-19 PFIZER VACCINE 2021-01-14 00:00:00 Completed [facility] SARS-COV-2 COVID-19 PFIZER VACCINE 2021-01-14 00:00:00 Completed [facility] SARS-COV-2 COVID-19 PFIZER VACCINE 2021-01-14 00:00:00 Completed [facility] SARS-COV-2 COVID-19 PFIZER VACCINE 2021-01-14 00:00:00 Completed [facility] SARS-COV-2 COVID-19 PFIZER VACCINE 2021-01-14 00:00:00 Completed [facility] SARS-COV-2 COVID-19 PFIZER VACCINE 2021-01-14 00:00:00 Completed [facility] SARS-COV-2 COVID-19 PFIZER VACCINE 2021-01-14 00:00:00 Completed [facility] SARS-COV-2 COVID-19 PFIZER VACCINE 2021-01-14 00:00:00 Completed [facility] SARS-COV-2 COVID-19 PFIZER VACCINE 2021-01-14 00:00:00 Completed [facility] SARS-COV-2 COVID-19 PFIZER VACCINE 2021-01-14 00:00:00 Completed [facility] SARS-COV-2 COVID-19 PFIZER VACCINE 2021-01-14 00:00:00 Completed [facility] SARS-COV-2 COVID-19 PFIZER VACCINE 2021-01-14 00:00:00 Completed [facility] SARS-COV-2 COVID-19 PFIZER VACCINE 2021-01-14 00:00:00 Completed [facility] Influenza Virus Vaccine Quad IM 3+ YRS 2018-01-12 00:00:00 Completed [facility] Influenza Virus Vaccine Quad IM 3+ YRS 2018-01-12 00:00:00 Completed [facility] Influenza Virus Vaccine Quad IM 3+ 2018-01-12 00:00:00 Completed [facility] Influenza Virus Vaccine Quad IM 3+ YRS 2018-01-12 00:00:00 Completed [facility] Influenza Virus Vaccine Quad IM 3+ YRS 2018-01-12 00:00:00 Completed [facility] Influenza Virus Vaccine Quad IM 3+ YRS 2018-01-12 00:00:00 Completed [facility] Influenza Virus Vaccine Quad IM 3+ YRS 2018-01-12 00:00:00 Completed [facility] Influenza Virus Vaccine Quad IM 3+ YRS 2018-01-12 00:00:00 Completed [facility] Influenza Virus Vaccine Quad IM 3+ YRS 2018-01-12 00:00:00 Completed [facility] Influenza Virus Vaccine Quad IM 3+ YRS 2018-01-12 00:00:00 Completed [facility] Influenza Virus Vaccine Quad IM 3+ YRS 2018-01-12 00:00:00 Completed [facility] Influenza Virus Vaccine Quad IM 3+ YRS 2018-01-12 00:00:00 Completed [facility] Influenza Virus Vaccine Quad IM 3+ YRS 2018-01-12 00:00:00 Completed [facility] Influenza Virus Vaccine Quad IM 3+ YRS 2018-01-12 00:00:00 Completed [facility] Influenza Virus Vaccine Quad IM 3+ YRS 2018-01-12 00:00:00 Completed [facility] Influenza Virus Vaccine Quad IM 3+ YRS Unknown Completed [facility] SARS-COV-2 COVID-19 PFIZER VACCINE Unknown Completed [facility] Influenza Virus Vaccine Quad IM 3+ YRS Unknown Completed [facility] SARS-COV-2 COVID-19 PFIZER VACCINE Unknown Completed [facility] Influenza Virus Vaccine Quad IM 3+ YRS Unknown Completed [facility] SARS-COV-2 COVID-19 PFIZER VACCINE Unknown Completed [facility] Influenza Virus Vaccine Quad IM 3+ YRS Unknown Completed [facility] SARS-COV-2 COVID-19 PFIZER VACCINE Unknown Completed [facility] Influenza Virus Vaccine Quad IM 3+ YRS Unknown Completed [facility] SARS-COV-2 COVID-19 PFIZER VACCINE Unknown Completed [facility] Influenza Virus Vaccine Quad IM 3+ YRS Unknown Completed [facility] SARS-COV-2 COVID-19 PFIZER VACCINE Unknown Completed [facility] Influenza Virus Vaccine Quad IM 3+ YRS Unknown Completed [facility] SARS-COV-2 COVID-19 PFIZER VACCINE Unknown Completed [facility] Influenza Virus Vaccine Quad IM 3+ YRS Unknown Completed [facility] SARS-COV-2 COVID-19 PFIZER VACCINE Unknown Completed [facility] Vital Signs Vital Name Observation Time Observation Value Comments S ource Systolic blood pressure 2024-03-08 17:57:00 150 mm[Hg] [facility] Diastolic blood pressure 2024-03-08 17:57:00 84 mm[Hg] [facility] Body height 2024-03-08 17:47:00 157.5 cm [facility] Body weight 2024-03-08 17:47:00 74.617 kg [facility] BMI 2024-03-08 17:47:00 30.09 kg/m2 [facility] Systolic blood pressure 2023-09-29 19:09:00 136 mm[Hg] [facility] Diastolic blood pressure 2023-09-29 19:09:00 70 mm[Hg] [facility] Heart rate 2023-09-29 19:09:00 66 /min Unive [facility] Body temperature 2023-09-29 19:09:00 36.5 Harriet [facility] Body height 2023-09-29 19:09:00 157.5 cm [facility] Body weight 2023-09-29 19:09:00 75.342 kg [facility] BMI 2023-09-29 19:09:00 30.38 kg/m2 [facility] Oxygen saturation in Arterial blood by Pulse oximetry 2023-09-29 19:09:00 97 /min [facility] Systolic blood pressure 2023-09-08 14:13:00 141 mm[Hg] [facility] Diastolic blood pressure 2023-09-08 14:13:00 84 mm[Hg] [facility] Heart rate 2023-09-08 14:13:00 82 /min Unive [facility] Body height 2023-09-08 14:13:00 157.5 cm [facility] Body weight 2023-09-08 14:13:00 77.52 kg Univ [facility] BMI 2023-09-08 14:13:00 31.26 kg/m2 [facility] Oxygen saturation in Arterial blood by Pulse oximetry 2023-09-08 14:13:00 95 /min [facility] Systolic blood pressure 2022-07-01 15:16:00 139 mm[Hg] [facility] Diastolic blood pressure 2022-07-01 15:16:00 65 mm[Hg] [facility] Heart rate 2022-07-01 15:16:00 82 /min Unive [facility] Body height 2022-07-01 15:16:00 157.5 cm [facility] Body weight 2022-07-01 15:16:00 81.874 kg [facility] BMI 2022-07-01 15:16:00 33.01 kg/m2 Univ [facility] Oxygen saturation in Arterial blood by Pulse oximetry 2022-07-01 15:16:00 94 /min [facility] Procedures Procedure Date / Time Performed Performing Clinician Source [id number] 2024-08-10 00:00:00 RASSA [facility] POCT HEMOGLOBIN A1C TEST 2024-03-08 17:58:00 Mehul Cardenas [facility] ASSIGNMENT OF BENEFITS 2023-03-26 16:20:55 Docto r Unassigned, [place] [facility] PATIENT QUESTIONNAIRE 2022-07-01 05:01:00 Doctor Unassigned, [place] [facility] Encounters Start Date/Time End Date/Time Encounter Type Admission Type Attending Clinicians Care Facility Care Department Encounter ID Source 2024-06-28 10:00:00 Inpatient Gavin Shaikh [facility] OUTD [id number] [facility] 2022-06-17 16:29:[address] [facility] [id number] [facility] 2022-06-05 09:43:[address] [facility] [id number] [facility] 2022-03-01 21:32:[address] 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, Ang - Lizbeth Killian Lab, Ang - [facility] [id number] [facility] 2024-09-20 12:00:00 2024-09-20 12:58:42 Outpatient LIZBETH CANCHOLA [facility] [id number] [facility] 2024-08-10 12:28:00 2024-08-10 21:30:00 Inpatient Gavin Shaikh [facility] INTE.02 [id number] [facility] 2024-03-08 13:00:00 2024-03-08 13:32:57 Outpatient R LIZBETH CARDENAS [facility] [id number] [facility] 2024-03-08 13:00:00 2024-03-08 13:32:57 Office Visit Nadir [facility] [id number] [facility] 2024-02-22 00:00:00 2024-02-22 00:00:00 [facility] 1..[id number] [facility] 2023-10-30 00:00:00 2023-10-30 00:00:00 Refill Jesus [facility] CULLEN?[facility] 1..840.114 [id number] [facility] 2023-10-30 00:00:00 2023-10-30 00:00:00 [facility] 1.2.840.114 350.1.13.10 4.2.7.2.686 [id number] [facility] 2023-09-29 13:43:28 2023-09-29 23:59:00 Outpatient R [facility] [id number] [facility] 2023-09-29 13:43:28 2023-09-29 23:59:00 [facility] 1.2.840.114 350.1.13.10 4.2.7.2.686 [id number] [facility] 2023-09-29 13:00:00 2023-09-29 13:43:18 [facility] 1..840.114 350.1.13.10 4.2.7.2.686 [id number] [facility] 2023-09-18 13:00:00 2023-09-18 13:00:00 Outpatient R JERONIMO MANZANO [facility] [id number] [facility] 2023-09-08 10:00:00 2023-09-08 10:15:00 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 Lab, [facility] 1..840.114 350.1.13.10 4.2.7.2.686 [id number] [facility] 2023-09-08 09:00:00 2023-09-08 09:55:46 Outpatient R NADIR [facility] [id number] [facility] 2023-09-08 09:00:00 2023-09-08 09:55:46 Office Visit Nadir [facility] CULLEN[facility] 1..840.114 350.1.13.10 4.2.7.2.686 [id number] 220 [id number] [facility] 2023-06-22 00:00:00 2023-06-22 00:00:00 Telephone Nadir [facility] CULLEN?[facility] 1..840.114 350.1.13.10 4.2.7.2.686 [id number] 220 [id number] [facility] 2023-05-08 00:00:00 2023-05-08 00:00:00 Refill Nadir [facility] CULLEN?[facility] 1.2840.114 350.1.13.10 4.2.7.2.686 [id number] 220 [id number] [facility] 2023-03-26 11:31:37 2023-03-26 23:59:00 Outpatient R RADIOLOGY [facility] [id number] [facility] 2023-03-26 11:20:00 2023-03-26 23:59:00 Hospital Encounter Radiology [facility] 1.2840.114 350.1.13.10 4.2.7.2.686 [id number] 800 [id number] [facility] 2023-03-26 00:00:00 2023-03-26 00:00:00 Orders Only Doctor Unassigned, [place] [facility] 1.2840.114 350.1.13.10 4.2.7.2.686 [id number] [id number] [facility] 2023-03-26 00:00:00 2023-03-26 00:00:00 Refill Nadir [facility] CULLEN?[facility] 1.2840.114 350.1.13.10 4.2.7.2.686 [id number] 220 [id number] [facility] 2023-03-18 00:00:00 2023-03-18 00:00:00 Refill Nadir [facility] 1.2840.114 350.1.13.10 4.2.7.2.686 [id number] 220 [id number] [facility] 2023-02-25 00:00:00 2023-02-25 00:00:00 Telephone Nadir [facility] CULLEN?[facility] 1.2840.114 350.1.13.10 4.2.7.2.686 [id number] 220 [id number] [facility] 2023-02-23 00:00:00 2023-02-23 00:00:00 [facility] 1.2.840.114 350.1.13.10 4.2.7.2.686 [id number] 220 [id number] [facility] 2023-02-14 00:00:00 2023-02-14 00:00:00 [facility]ill [facility] 1.2.840.114 350.1.13.10 4.2.7.2.686 [id number] 220 [id number] [facility] 2023-01-06 10:00:00 2023-01-06 10:00:00 Outpatient R CARDENAS [facility] [id number] [facility] 2022-11-02 00:00:00 2022-11-02 00:00:00 [facility]ill [facility] 1..840.114 350.1.13.10 4.2.7.2.686 [id number] 220 [id number] [facility] 2022-10-20 00:00:00 2022-10-20 00:00:00 Refill [facility] 1..840.114 350.1.13.10 4.2.7.2.686 [id number] 220 [id number] [facility] 2022-07-15 00:00:00 2022-07-15 00:00:00 Telephone Nadir [facility] CULLEN?[facility] 1.2.840.114 350.1.13.10 4.2.7.2.686 [id number] 220 [id number] [facility] 2022-07-01 11:45:00 2022-07-01 12:00:00 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 Lab, [facility] 1.84.114 350.1.13.10 4.2.7.2.686 [id number] [facility] 2022-07-01 10:30:00 2022-07-01 11:40:18 Outpatient R NADIR [facility] [id number] [facility] 2022-07-01 10:30:00 2022-07-01 11:40:18 Office Visit Nadir [facility] CULLEN?[facility] 1.84.114 350.1.13.10 4.2.7.2.686 [id number] 220 [id number] [facility] 2022-07-01 00:00:00 2022-07-01 00:00:00 Orders Only Doctor Unassigned, [place] [facility] 1.84.114 350.1.13.10 4.2.7.2.686 [id number] [id number] [facility] 2022-06-06 11:30:00 2022-06-06 11:30:00 [facility] [id number] [facility] 2022-05-10 00:00:00 2022-05-10 00:00:00 Refill Simón [facility] CULLEN?[facility] 1.84.114 350.1.13.10 4.2.7.2.686 [id number] 220 [id number] [facility] 2022-05-03 00:00:00 2022-05-03 00:00:00 Refill [facility]ón [facility] 1.84.114 350.1.13.10 4.2.7.2.686 [id number] 220 [id number] [facility] 2022-04-15 14:00:00 2022-04-15 14:00:00 Outpatient R VIKKI DONATO [facility] [id number] [facility] 2022-04-10 12:07:29 2022-04-10 23:59:00 [facility] 1..840.114 350.1.13.10 4.2.7.2.686 [id number] 800 [id number] [facility] 2022-04-10 12:03:57 2022-04-10 12:06:00 Outpatient R TANMAY VIKKI [facility] [id number] [facility] 2022-04-10 12:03:57 2022-04-10 12:06:00 Hospital Encounter [facility] 1..840.114 350.1.13.10 4.2.7.2.686 [id number] 800 [id number] [facility] 2022-04-01 13:45:00 2022-04-01 13:45:00 Outpatient R ALEKSANDRAGLEN VIKKI [facility] [id number] [facility] 2022-03-25 10:33:57 2022-03-25 23:59:00 Hospital Encounter glen [facility] 1..840.114 350.1.13.10 4.2.7.2.686 [id number] 800 [id number] [facility] 2022-03-25 11:13:52 2022-03-25 10:32:00 Outpatient R BRETKOBYVIKKI [facility] [id number] [facility] 2022-03-25 10:30:00 2022-03-25 10:32:00 Hospital Encounter [facility] 1..840.114 350.1.13.10 4.2.7.2.686 [id number] 800 [id number] [facility] 2022-03-13 00:00:00 2022-03-13 00:00:00 Orders Only Doctor Unassigned, [place] [facility] 1..114 350.1.13.10 4.2.7.2.686 [id number] [id number] [facility] 2022-03-06 09:45:00 2022-03-06 10:00:00 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, Adc Lab Unknown, [facility] 1..114 350.1.13.10 4.2.7.2.686 [id number] [facility] 2022-03-06 09:45:00 2022-03-06 09:45:00 Outpatient JERONIMO ROME [facility] [id number] [facility] 2022-03-06 09:45:00 2022-03-06 09:45:00 Outpatient JERONIMO ROME [facility] [id number] [facility] 2022-03-04 08:18:01 2022-03-04 23:59:00 Outpatient R VIKKI DONATO [facility] [id number] [facility] 2022-03-04 08:18:01 2022-03-04 23:59:00 Outpatient R VIKKI DONATO [facility] [id number] [facility] 2022-03-04 08:18:01 2022-03-04 23:59:00 Hospital Encounter Vikki Donato [facility] 1.84.114 350.1.13.10 4.2.7.2.686 [id number] [facility] 2022-03-03 00:00:00 2022-03-03 00:00:00 Telephone Vikki Donato [facility] 1..114 350.1.13.10 4.2.7.2.686 [id number] [facility] 2022-03-03 00:00:00 2022-03-03 00:00:00 Telephone [facility] 1.2.840.114 350.1.13.10 4.2.7.2.686 [id number] [facility] 2022-02-21 10:40:23 2022-02-21 23:59:00 Outpatient R SIMÓN [facility] [id number] [facility] 2022-02-21 10:40:00 2022-02-21 23:59:00 Hospital Encounter Simón [facility] 1.2.840.114 350.1.13.10 4.2.7.2.686 [id number] [facility] 2022-02-21 00:00:00 2022-02-21 00:00:00 Orders Only Doctor Unassigned, [place] [facility] 1.2.840.114 350.1.13.10 4.2.7.2.686 [id number] [id number] [facility] 2022-02-18 00:00:00 2022-02-18 00:00:00 Telephone [facility] 1.2.840.114 350.1.13.10 4.2.7.2.686 [id number] [facility] 2022-02-18 00:00:00 2022-02-18 00:00:00 Orders Only Doctor Unassigned, [place] [facility] 1.2.840.114 350.1.13.10 4.2.7.2.686 [id number] [id number] [facility] 2022-02-18 00:00:00 2022-02-18 00:00:00 Telephone [facility] 1.2.840.114 350.1.13.10 4.2.7.2.686 [id number] [facility] 2021-11-22 10:00:00 2021-11-22 10:45:13 Outpatient R SIMÓN [facility] [id number] [facility] 2021-11-22 10:00:00 2021-11-22 10:45:13 Office Visit Simón [facility] 1.84114 350.1.13.10 4.2.7.2.686 [id number] 220 [id number] [facility] 2021-11-22 10:00:00 2021-11-22 10:45:13 Outpatient R SIMÓN [facility] [id number] [facility] 2021-10-25 00:00:00 2021-10-25 00:00:00 Refill Nadir [facility] 1.84.114 350.1.13.10 4.2.7.2.686 [id number] [facility] 2021-08-13 11:00:00 2021-08-13 11:00:00 Outpatient R NADIR [facility] [id number] [facility] 2021-05-15 00:00:00 2021-05-15 00:00:00 Orders Only Doctor Unassigned, [place] [address].114 350.1.13.10 4.2.7.2.686 [id number] [id number] [facility] 2021-05-15 00:00:00 2021-05-15 00:00:00 Orders Only Doctor Unassigned, [place] [facility] 1.114 350.1.13.10 4.2.7.2.686 [id number] [id number] 2021-05-03 13:19:28 2021-05-03 14:16:38 Office Visit [facility] 1.84.114 350.1.13.10 4.2.7.2.686 [id number] 220 [id number] [facility] 2021-05-03 13:19:28 2021-05-03 14:16:38 [facility] 1.2.840.114 350.1.13.10 4.2.7.2.686 [id number] 220 [id number] 2021-05-03 13:30:00 2021-05-03 13:30:00 [facility] [id number] [facility] 2021-04-24 00:00:00 2021-04-24 00:00:00 Refill Nadir [facility] 1.2.840.114 350.1.13.10 4.2.7.2.686 [id number] 220 [id number] [facility] 2021-02-26 00:00:00 2021-02-26 00:00:00 Telephone Nadir [facility] 1.2.840.114 350.1.13.10 4.2.7.2.686 [id number] 220 [id number] [facility] 2021-02-07 09:20:34 2021-02-07 23:59:00 Hospital Encounter Nadir [facility] 1.2.840.114 350.1.13.10 4.2.7.2.686 [id number] [facility] 2021-02-07 09:45:00 2021-02-07 09:45:00 Outpatient R [facility] [id number] [facility] 2021-02-07 09:19:36 2021-02-07 09:34:36 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, Adc Lab Nadir [facility] 1.2.840.114 350.1.13.10 4.2.7.2.686 [id number] [facility] 2021-02-07 00:00:00 2021-02-07 00:00:00 Orders Only Doctor Unassigned, [place] [facility] 1..840.114 350.1.13.10 4.2.7.2.686 [id number] [id number] [facility] 2021-02-05 15:30:02 2021-02-05 16:24:34 Office Visit Lizbeth Cardenas [facility] 1..840.114 350.1.13.10 4.2.7.2.686 [id number] [facility] 2021-02-05 15:30:00 2021-02-05 15:30:00 Outpatient R NDAIR [facility] [id number] [facility] 2021-02-04 12:50:00 2021-02-04 12:50:00 Outpatient R CARLITA PADILLA [facility] [id number] [facility] 2021-01-14 10:30:00 2021-01-14 10:30:00 Outpatient R CARLITA PADILLA [facility] [id number] [facility] 2020-12-01 00:00:00 2020-12-01 00:00:00 Jesus Rodriguez [facility] 1..840.114 350.1.13.10 4.2.7.2.686 [id number] 220 [id number] [facility] 2020-06-15 00:00:00 2020-06-15 00:00:00 Jesus Rodriguez [facility] 1..840.114 350.1.13.10 4.2.7.2.686 [id number] 220 [id number] [facility] 2020-03-25 00:00:00 2020-03-25 00:00:00 Lizbeth Amos [facility] 1.2.840.114 350.1.13.10 4.2.7.2.686 [id number] 220 [id number] [facility] 2020-03-23 13:30:00 2020-03-23 13:30:00 Outpatient R JESUS NEWMAN [facility] [id number] [facility] 2020-03-19 00:00:00 2020-03-19 00:00:00 Refill Nadir [facility] 1.2.840.114 350.1.13.10 4.2.7.2.686 [id number] 220 [id number] [facility] 2020-03-06 10:00:00 2020-03-06 10:00:00 Outpatient R NADIR [facility] [id number] [facility] 2020-03-06 08:02:38 2020-03-06 08:32:38 Telemedici ne Visit Nadir [facility] 1.2.840.114 350.1.13.10 4.2.7.2.686 [id number] 220 [id number] [facility] 2020-02-28 00:00:00 2020-02-28 00:00:00 Refill Nadir [facility] 1.2.840.114 350.1.13.10 4.2.7.2.686 [id number] 220 [id number] [facility] 2020-02-07 09:00:00 2020-02-07 09:00:00 Outpatient R NADIR [facility] [id number] [facility] 2020-01-24 11:00:00 2020-01-24 11:30:00 Office Visit Nadir [facility] 1.2.840.114 350.1.13.10 4.2.7.2.686 [id number] 220 [id number] [facility] 2020-01-24 11:00:2020-01-24 11:00:00 Outpatient R LIZBETH CARDENAS [facility] [id number] [facility] 2019-08-02 00:00:00 2019-08-02 00:00:00 Refill Marychuy Mcdonnell [facility] 1.2.840.114 350.1.13.10 4.2.7.2.686 [id number] 220 [id number] [facility] 2019-07-26 13:14:50 2019-07-26 13:53:33 Office Visit Lizbeth Cardenas [facility] 1.2.840.114 350.1.13.10 4.2.7.2.686 [id number] 220 [id number] [facility] 2019-07-26 00:00:00 2019-07-26 00:00:00 Orders Only Doctor Unassigned, [place] [facility] 1.2.840.114 350.1.13.10 4.2.7.2.686 [id number] [id number] [facility] 2019-06-16 14:48:06 2019-06-16 15:42:48 Account Services Associate Visit Juan CJoyce newman [facility] 1.2.840.114 350.1.13.10 4.2.7.2.686 [id number] 220 [id number] [facility] 2019-06-16 00:00:00 2019-06-16 00:00:00 Orders Only Doctor Unassigned, [place] [facility] 1.2.840.114 350.1.13.10 4.2.7.2.686 [id number] 009 [id number] [facility] Results Test Description Test Time Test Comments Results Result Co mments Source BASIC METABOLIC [id number] 13:13:00* Test Item Value Reference Range Interpretation Comme nts SODIUM (test code = NA) 141 mEq/L 134-147 N POTASSIUM (test code = K) 2.9 mEq/L 3.4-5.0 LL Critical result called to ANJALI NORMAN, RNby [id number] at 1312 08/10/24Nurse read back resut and tech confirmed it's correct? YES CHLORIDE (test code = CL) 102 mEq/L 100-108 N CARBON DIOXIDE (test code = CO2) 35 mEq/l 21-33 H ANION GAP (test code = GAP) 7 0-20 N GLUCOSE (test code = GLU) 98 mg/dL 77-141 N BLOOD UREA NITROGEN (test code = BUN) 8 mg/dL 7-25 N GLOMERULAR FILTRATION RATE (test code = GFR) 80.7 80-90 N The Glomerular Filtration Rate is a calculated parameterbased on serum Creatinine, patient age and sex. GFR valuesless than 60 mL/min/1.73 square meters are indicative ofChronic Kidney Disease. Values less than 15 mL/min/1.73square meters indicate Kidney failure. The calculation forGFR is based on the CKD-EPI (2020) calculation. This formulais race indifferent and is the recommended formula for GFRby the National Kidney Foundation for Adults.The GFR will not calculate if the sex is unknown or if thepatient's age is <18 years. CREATININE (test code = CREAT) 0.8 mg/dL 0.6-1.3 N CALCIUM (test code = CA) 8.3 mg/dL 8.0-10.5 N PROTHROMBIN [id number] 12:44:00* Test Item Value Reference Range Interpretation Comme nts PROTHROMBIN TIME PATIENT (test code = PTP) 12.0 SECONDS 9.3-12.9 N INTERNATIONAL NORMAL RATIO (test code = INR) 1.1 0.8-1.2 N TARGET INR BY INDICATION Indication INR1. Prophylaxis of venous thrombosis 2.0 - 3.0 (orthopedic surgery), Prophylaxis of venous thrombosis (other than high-risk surgery), Treatment of Deep Vein Thrombosis/Pulmonary Embolism, Prevention of systemic embolism - Tissue heart valves, Acute Myocardial Infarction (to prevent systemic embolism), Valvular heart disease, Atrial Fibrillation, Bileaflet mechanical valve in aortic position.2. Mechanical prosthetic valves (high risk), 2.5 - 3.5 Presence of Lupus Anticoagulant or Antiphospholipid Antibodies, Prevention of systemic embolism - Acute Myocardial Infarction (to prevent recurrent infarct). BASIC METABOLIC [id number] 15:41:00* Test Item Value Reference Range Interpretation Comme nts SODIUM (test code = NA) 138 mEq/L 134-147 N POTASSIUM (test code = K) 2.8 mEq/L 3.4-5.0 LL Critical result called to MONET MILLIGANRNby [id number] at 1536 08/08/24Nurse read back resut and tech confirmed it's correct? YES CHLORIDE (test code = CL) 100 mEq/L 100-108 N CARBON DIOXIDE (test code = CO2) 32 mEq/l 21-33 N ANION GAP (test code = GAP) 9 0-20 N GLUCOSE (test code = GLU) 103 mg/dL 77-141 N BLOOD UREA NITROGEN (test code = BUN) 8 mg/dL 7-25 N GLOMERULAR FILTRATION RATE (test code = GFR) 80.7 80-90 N The Glomerular Filtration Rate is a calculated parameterbased on serum Creatinine, patient age and sex. GFR valuesless than 60 mL/min/1.73 square meters are indicative ofChronic Kidney Disease. Values less than 15 mL/min/1.73square meters indicate Kidney failure. The calculation forGFR is based on the CKD-EPI (202) calculation. This formulais race indifferent and is the recommended formula for GFRby the National Kidney Foundation for Adults.The GFR will not calculate if the sex is unknown or if thepatient's age is <18 years. CREATININE (test code = CREAT) 0.8 mg/dL 0.6-1.3 N CALCIUM (test code = CA) 8.3 mg/dL 8.0-10.5 N [id number] 15:41:00* Test Item Value Reference Range Interpretation Comme nts PREALBUMIN (test code = PREALB) 13.0 mg/dL 16.0-40.0 L CBC W/AUTO [id number] 15:17:00* Test Item Value Reference Range Interpretation Comme nts WHITE BLOOD CELL (test code = WBC) 9.8 x10 3/uL 4.5-11.0 N RED BLOOD CELL (test code = RBC) 3.50 x10 6/uL 3.54-5.02 L HEMOGLOBIN (test code = HGB) 9.7 g/dL 11.0-15.0 L HEMATOCRIT (test code = HCT) 30.6 % 33.0-45.0 L MEAN CELL VOLUME (test code = MCV) 87.4 fL 81.0-99.0 N MEAN CELL HGB (test code = MCH) 27.7 pg 27.0-33.0 N MEAN CELL HGB CONCETRATION (test code = MCHC) 31.7 g/dL 33.0-37.0 L RED CELL DISTRIBUTION WIDTH CV (test code = RDW) 14.4 % 11.5-14.5 N RED CELL DISTRIBUTION WIDTH SD (test code = RDW-SD) 45.9 fL 37.0-54.0 N PLATELET COUNT (test code = PLT) 221 x10 3/uL 150-400 N MEAN PLATELET VOLUME (test c ode = MPV) 11.3 fL 7.0-9.0 H NEUTROPHIL % (test code = NT%) 81.6 % 56.0-77.0 H IMMATURE GRANULOCYTE % (test code = IG%) 0.4 % 0.0-2.0 N LYMPHOCYTE % (test code = LY%) 12.0 % 14.0-32.0 L MONOCYTE % (test code = MO%) 3.6 % 4.8-9.0 L EOSINOPHIL % (test code = EO%) 2.2 % 0.3-3.7 N BASOPHIL % (test code = BA%) 0.2 % 0.0-2.0 N NUCLEATED RBC % (test code = NRBC%) 0.0 % 0-0 N NEUTROPHIL # (test code = NT#) 7.96 x10 3/uL 2.0-7.6 H IMMATURE GRANULOCYTE # (test code = IG#) 0.04 x10 3/uL 0.00-0.03 H LYMPHOCYTE # (test code = LY#) 1.17 x10 3/uL 1.0-3.8 N MONOCYTE # (test code = MO#) 0.35 x10 3/uL 0.1-0.8 N EOSINOPHIL # (test code = EO#) 0.21 x10 3/uL 0.0-0.2 H BASOPHIL # (test code = BA#) 0.02 x10 3/uL 0.0-0.2 N NUCLEATED RBC # (test code = NRBC#) 0.00 x10 3/uL 0.0-0.1 N POCT Hemoglobin A1C [id number] 18:00:00* Test Item Value Reference Range Interpretation Comme [facility] POCT HBA1C (test code = 4548-4) 5.5 % 4-6 [facility] [id number] 18:00:00* Test Item Value Reference Range Interpretation Comme nts POCT HBA1C (test code = 4548-4) 5.5 % 4-6 [facility] Notes Date/Time Note Provider Source 2024-09-20 13:00:00 Images from the original note were not included. Venipuncture collection performed by clean technique on the back of right hand. Total of 1 attempts were made. Slight pressure and a bandage/dressing were applied to the site(s). The patient experienced no complications. The following specimens were processed according to instructions and sent to [facility] per lab order on today: LT BLUE SST 2 RED LAV PPT DK GREEN (LiHep) DK GREEN (SodH) RHODES DK BLUE (K2) DK BLUE (S) ACD Blood Culture NIPT/NTD [facility] 2024-08-11 06:51:00 [id number] [place] [address] PATIENT NAME: NORI CERNA ADMIT DATE: 08/10/24 ACCOUNT NO: [id number] ROOM NO: [facility]HA AGE: 68 REPORT TYPE: eECHOCARDIOGRAM REPORT SEX: F ADMITTING PHYSICIAN:Gavin Howe MD ATTENDING PHYSICIAN:Gavin Howe MD *[place] [address] Limited Transthoracic Echocardiogram Patient: Nori Cerna Study Date: 08/10/2024 BP: 158 / 72 URN: [id number] Location: : 1955 Age: 68 Gender: F Height: 62 in / 157.5 cm Weight: 160 lb / 72.6 kg BMI/BSA: 29.3 kg/m 2 / 1.81 m 2 *Ordering Physician: * Arash Normanp *Interpreting Physician: * Jc Smith MD *Director: Annalisa Sky Indications: Rule out pericardial effusion. Study data: Transthoracic echocardiogram, limited study. Procedure: A transthoracic echocardiogram was performed. Image quality was adequate. Limited 2D and limited spectral Doppler. Location: Bedside. Patient status: Inpatient. Patient room number: CHIN-4. Study status: [facility]. Heart rate: 67 bpm. Findings Left ventricle: The cavity size is normal. Wall thickness is mildly increased. Systolic function is normal. The estimated ejection fraction is 55-60%. Pericardium: There is no pericardial effusion. PATIENT NAME: NORI CERNA Measurements Left ventricle Value Ref DES, LAX 4.0 cm 3.8 - 5.2 ESD, LAX 2.8 cm 2.2 - 3.5 FS, LAX 30 % 27 - 45 IVS, ED 1.3 cm 0.6 - 0.9 PW, ED 1.3 cm 0.6 - 0.9 IVS/PW, ED 1.02 --------- EF 58 % 54 - 74 Conclusions Summary: Left ventricle: The cavity size is normal. Wall thickness is mildly increased. Systolic function is normal. The estimated ejection fraction is 55-60%. Electronically signed by Jc Smith MD 08/11/2024 06:51 at 0651 PATIENT NAME: NORI CERNA [facility] 2024-08-10 17:45:00 [id number] [place] [address] PATIENT NAME: NORI CERNA ADMIT DATE: 08/10/24 ACCOUNT NO: [id number] ROOM NO: [facility]APHA AGE: 68 REPORT TYPE: eTRANSESOPHAGEAL ECHO REPORT SEX: F ADMITTING PHYSICIAN:Gavin Howe MD ATTENDING PHYSICIAN:Gavin Howe MD *[place] [address] Transesophageal Echocardiogram for Og Patient: Nori Cerna Study Date: 08/10/2024 BP: URN: [id number] Location: : 1955 Age: 68 Gender: F Height: 61.8 in / 157 cm Weight: 160.9 lb / 73 kg BMI/BSA: 29.6 kg/m 2 / 1.81 m 2 *Ordering Physician: * Too Taylor *Interpreting Physician: * Jc Smith MD *Director: * Gail Pierre, [facility], S Indications: Atrial Fibrillation. Study data: Transesophageal Echocardiogram for Watchman. Consent: The risks, benefits, and alternatives to the procedure and sedation were explained to the patient and informed consent was obtained. Procedure: The patient arrived at the laboratory in a fasting state. Intravenous access was obtained. Surface ECG leads, blood pressure measurements, and pulse oximetric signals were monitored. Sedation was administered by anesthesiology staff. A transesophageal echocardiogram was performed for preoperative diagnosis, postoperative evaluation, transseptal puncture monitoring, exclusion of intracardiac thrombi, and identifying potential complications. A transesophageal probe was inserted by the anesthesiologist without difficulty. Images were obtained using a Rafaela cardiac ultrasound machine. Image quality was adequate. The transesophageal probe was removed. No intracardiac thrombus was identified. Location: laboratory. Patient status: Observation. PATIENT NAME: NORI CERNA Study status: Scheduled. Study completion: The patient tolerated the procedure well. There were no complications. Findings Left ventricle: The cavity size is normal. Systolic function is normal. Right ventricle: The cavity size is normal. Systolic function is normal. Left atrium: There is no evidence of a thrombus in the atrial cavity or appendage. Appendage: Pre LAAO device: At 0degrees the left atrial appendage ostium measures 13 mm (width) and 17 mm (depth). At 45degrees the left atrial appendage ostium measures 16 mm (width) and 15 mm (depth). At 90degrees the left atrial appendage ostium measures 14 mm (width) and 17 mm (depth). At 135degrees the left atrial appendage ostium measures 15 mm (width) and 13 mm (depth). The left atrial appendage anatomy is suitable for the appendage occlusion device. Catheter and LAAO device were implanted under RYLAND guidance. Post LAAO device: The 24 mm Watchman MACIE occluder device is well seated. There is no evidence of residual flow around the MACIE occluder device. Right atrium: There is no evidence of a thrombus in the atrial cavity. Atrial septum: There is a residual atrial shunt post-transseptal catheterization. Aorta: Aortic root: The root is normal. Aortic valve: The valve is structurally normal. The valve is trileaflet. Cusp separation is normal. There is no evidence of a vegetation. There is no evidence of stenosis. There is trace regurgitation. Tricuspid valve: There is no evidence of a vegetation. There is no evidence of stenosis. There is no significant regurgitation. Pericardium: There is no pericardial effusion. Conclusions Summary: 1. Study data: Transesophageal Echocardiogram for Watchman. 2. Procedure narrative: A transesophageal echocardiogram was performed for preoperative diagnosis, postoperative evaluation, transseptal puncture monitoring, exclusion of intracardiac thrombi, and identifying potential complications. A transesophageal probe was inserted by the anesthesiologist without difficulty. Images were obtained using a Rafaela cardiac ultrasound machine. Image quality was adequate. The transesophageal probe was removed. No intracardiac thrombus was identified. 3. Left ventricle: The cavity size is normal. Systolic function is normal. 4. Left atrium: There is no evidence of a thrombus in the atrial cavity or appendage. Post LAAO device: The 24 mm Watchman MACIE occluder device is well seated. There is no evidence of residual flow around the MACIE occluder device. 5. Right atrium: There is no evidence of a thrombus in the atrial cavity. 6. Atrial septum: There is a residual atrial shunt post-transseptal catheterization. 7. Aortic valve: There is no evidence of stenosis. 8. Pericardium, extracardiac: There is no pericardial effusion. PATIENT NAME: NORI CERNA Impressions: Patient is s/p successful implantation of a 24mm Watchman device in the left atrial appendage. Patient tolerated the procedure without post-op complications. No thrombus was identified in the pre-/intra-op RYLAND. Postoperatively, post-op transesophageal echocardiogram did not show a pericardial effusion. Electronically signed by Jc Smith MD 08/10/2024 17:45 at 1745 PATIENT NAME: NORI CERNA [facility] 2024-08-10 16:27:00 [id number] [place] [address] PATIENT NAME: NORI CERNA ADMIT DATE: 08/10/24 ACCOUNT NO: [id number] ROOM NO: [facility] AGE: 68 REPORT TYPE: eELECTROCARDIOGRAM REPORT SEX: F ADMITTING PHYSICIAN:Gavin Howe MD ATTENDING PHYSICIAN:Gavin Howe MD Order: [id number] Test Reason : S/P WATCHMAN Test Date/Time Stamp: ThuAug 10 2024 16:27:26 Blood Pressure : / mmHG Vent. Rate : 063 BPM Atrial Rate : 063 BPM P-R Int : 146 ms QRS Dur : 086 ms QT Int : 446 ms P-R-T Axes : 057 006 009 degrees QTc Int : 456 ms Normal sinus rhythm Left ventricular hypertrophy with repolarization abnormality Abnormal ECG When compared with ECG of 08-AUG-2024 13:34, Significant changes have occurred Confirmed by JEFFREY GIPSON MD ([id number]) on 08/10/2024 6:22:54 PM Referred By: Gavin Howe Confirmed by:JEFFREY GIPSON MD at 1822 PATIENT NAME: NORI CERNA [facility] 2024-08-10 15:53:00 [id number] [place] [address] PATIENT NAME: NORI CERNA ADMIT DATE: 08/10/24 ACCOUNT NO: [id number] ROOM NO: [facility] AGE: 68 REPORT TYPE: OPERATIVE REPORT SEX: F ADMITTING PHYSICIAN:Gavin Howe MD ATTENDING PHYSICIAN:Gavin Howe MD OPERATION DATE: 08/10/2024 PREOPERATIVE DIAGNOSIS: POSTOPERATIVE DIAGNOSIS: PROCEDURE PERFORMED: Left atrial appendage closure using a 24-mm Watchman FLX closure device. SURGEON: Gavin Howe MD INDUSTRIAL ENGINEERING INTERN: ANESTHESIA: INDICATION: Atrial fibrillation with high CHADS-VASc score, risk of bleeding, and intolerant of anticoagulants. ACCESS: Right common femoral vein 16-Bolivian, closed with ytrryj-me-baudy suture. COMPLICATIONS: None. BLEEDING: Less than 50 mL. was 45 minutes. DESCRIPTION OF PROCEDURE: After risks, benefits, and alternatives were explained and patient was brought into EP lab, prepped and draped in the usual sterile fashion. After anesthesia was applied, RYLAND probe was inserted and appendage was suitable for closure. There was no thrombus. I accessed right common femoral vein using a micropuncture kit and ultrasound guidance, and placed an 8-Bolivian [place] sheath and gave partial dose of heparin and then exchanged for 16-Bolivian Cook sheath and then took SL1 sheath over the wire into the SVC. With the Valmy needle into interatrial septum in the low-mid position, transseptal puncture was performed and then gave full dose heparin at this point to assure ACT level above 250. LA pressure was measured at 70 mmHg. Then, I took a ProTrack wire into the left atrium, exchanged the SL1 sheath for the Watchman double curve sheath and then took a pigtail through the Watchman sheath into the left atrium and navigated into the appendage and then telescoped the Watchman sheath appendage and performed appendage angiogram and determined a 24-mm device will be suitable for closure. Device was prepped and de-aired in the usual sterile fashion. Then, the pigtail was removed and after PATIENT NAME: NORI CERNA good bleed back from the sheath and with positive flush through the delivery system, delivery system was advanced through the Watchman sheath and placed distally in the appendage and then under fluoroscopy and RYLAND guidance, the device was deployed successfully. PASS criteria were evaluated and met and as such device was released in place and then removed the Watchman delivery system and the Watchman sheath. The Cook sheath and bjborm-uw-iykag suture was placed for closure with good hemostasis. CONCLUSION: Successful left atrial appendage closure using a 24-mm Watchman FLX closure device. Dictated By: Gavin Howe MD Date Dictated: 08/10/2024 15:53:10 Date Transcribed: 08/10/2024 18:17:17 /JUAREZ/HEM/NAG Receipt ID: [id number] Authenticated by Gavin Howe MD On 09/13/2024 07:51:13 AM at 0751 PATIENT NAME: NORI CERNA [facility] 2024-08-10 12:21:00 [facility] ([facility]) Discharge Summary REPORT#:[id number] REPORT STATUS: Signed REPORT INITIALIZATION DATE:08/10/24 TIME: 122 PATIENT: NORI CERNA UNIT #: [id number] ROOM/BED: [place] [id number] : 56 AGE: 68 SEX: F ATTEND: Gavin Howe MD ADM AUTHOR: Arash Norman REPT SERVICE DT/TIME: 08/10/24 1221 * ALL edits or amendments must be made on the electronic/computer document * PCP PCP Discharge to: home General Information Discharge date: 08/10/24 Discharge diagnosis: AFIB Hospital course: Patient with paroxysmal atrial fibrillation, [id number] score of 4, and intolerance to long-term anticoagulation due to fall risk. NYHA class II. Patient is s/p successful implantation of a 24mm Watchman device in the left atrial appendage. Patient tolerated the procedure without post-op complications. No thrombus was identified in the pre-/intra-op RYLAND. Postoperatively, chest x-ray is negative for any acute process. Post-op echo did not show a pericardial effusion. Patient ambulated without any difficulty, and heart rate and blood pressure are stable. Right groin suture removed and Dermabond applied; no infection, bleeding, or hematoma. Patient was provided with post-Watchman discharge instructions. Patient is to follow up with PCP and track oiler in 1 to 2 weeks after discharge. Patient is to follow up with track oiler for the 45-day RYLAND and for anticoagulation recommendation. Patient is to continue Xarelto for 6 weeks, then transition to aspirin and Plavix. Duration of aspirin is lifelong. Duration of Plavix is 6 months after 45-day RYLAND. Post-Watchman discharge instructions given to the patient who verbalized understanding, and patient was instructed to report any complaints of chest pain , shortness of breath, lightheadedness, or dizziness to the track oiler. Dispo: It is medically necessary that patients undergoing percutaneous left atrial appendage occlusion are admitted as an inpatient. This patient had a recovery that was earlier than expected, and can be discharged today. Med Rec PCP PCP: PCP: Gavin Howe MD Med Rec Discharge meds: Continue taking these medications: Rivaroxaban (XARELTO) (Unknown Strength) TAB Unknown Dose ORAL BEDTIME. ALENDRONATE (FOSAMAX ONCE WEEKLY) 70 MG TAB 70 MILLIGRAM ORAL EVERY 7 DAYS. clonazePAM (KlonoPIN) 1 MG TAB 1 MILLIGRAM ORAL TWICE DAILY. DULoxetine DR (CYMBALTA) 60 MG CAP.DR 120 MILLIGRAM ORAL DAILY. FLUDROCORTISONE ACETATE (FLORINEF) 0.1 MG TAB 0.1 MILLIGRAM ORAL DAILY. HYDROCORTISONE (CORTEF) 10 MG TAB 10 MILLIGRAM ORAL DAILY. LEVOTHYROXINE (SYNTHROID) 25 MCG TAB 25 MICROGRAM ORAL DAILY. METOPROLOL TARTRATE (LOPRESSOR) 50 MG TAB 50 MILLIGRAM ORAL TWICE DAILY. oxyCODONE (oxyCODONE) 10 MG TAB 10 MILLIGRAM ORAL THREE TIMES DAILY NEEDED. as needed for PAIN OMEPRAZOLE ER (PriLOSEC) 40 MG CAP.DR 40 MILLIGRAM ORAL DAILY. ROSUVASTATIN (CRESTOR) 10 MG TAB 10 MILLIGRAM ORAL BEDTIME. AMITRIPTYLINE (ELAVIL) 100 MG TAB 100 MILLIGRAM ORAL BEDTIME. AMITRIPTYLINE (ELAVIL) 50 MG TAB 50 MILLIGRAM ORAL BEDTIME. ARIPiprazole (ABILIFY) 2 MG TAB 2 MILLIGRAM ORAL DAILY. ESTRADIOL (ESTRACE) 2 MG TAB 2 MILLIGRAM ORAL BEDTIME. ESZOPICLONE (LUNESTA) 2 MG TAB 2 MILLIGRAM ORAL BEDTIME. MELATONIN (MELATONIN) 5 MG TAB 10 MILLIGRAM ORAL BEDTIME. Objective VS/I O PATIENT WEIGHT: Weight (lb): 160 Weight (oz): 4.42 Weight (kg): 72.700 General appearance: alert, awake, oriented Cardiovascular: regular rate rhythm Respiratory: clear to auscultation, no distress GI: soft, non-tender Extremities: moves all Neuro/CLAM DREDGER: alert, oriented X 3 Skin: dry Wound/incision: Location: Right groin suture removed and Dermabond applied; no infection, bleeding, or hematoma. Results Findings/Data: Laboratory Tests: 08/10 08/10 1541 1216 Chemistry Sodium (134 - 147 mEq/L) 141 Potassium (3.4 - 5.0 mEq/L) 2.9 *L Chloride (100 - 108 mEq/L) 102 Carbon Dioxide (21 - 33 mEq/l) 35 H Anion Gap (0 - 20) 7 BUN (7 - 25 mg/dL) 8 Creatinine (0.6 - 1.3 mg/dL) 0.8 Glomerular Filtr Rate (80 - 90) 80.7 Glucose (77 - 141 mg/dL) 98 Calcium (8.0 - 10.5 mg/dL) 8.3 Coagulation INR (0.8 - 1.2) 1.1 PT Patient/Control Mix (9.3 - 12.9 SECONDS) 12.0 Activated Coag Time (SECONDS) 282 Radiology data: Recent Impressions: RADIOLOGY - XR CHEST 1 V 08/10 1711 Report Impression - Status: SIGNED Entered: 08/10/2024 4608 Impression: 1. No radiographic evidence of acute cardiopulmonary disease. Impression By: Jimmy Ryan.D. Treatments Procedures Treatments Procedures: Left atrial appendage closure using a 24-mm Watchman FLX closure device. Lab: Chemistry last 24 hrs: 08/10 1216 Chemistry Sodium (134 - 147 mEq/L) 141 Potassium (3.4 - 5.0 mEq/L) 2.9 *L Chloride (100 - 108 mEq/L) 102 BUN (7 - 25 mg/dL) 8 Creatinine (0.6 - 1.3 mg/dL) 0.8 Glucose (77 - 141 mg/dL) 98 Coagulation last 24 hrs: 08/10 1216 Coagulation INR (0.8 - 1.2) 1.1 Imaging: Recent Impressions: RADIOLOGY - XR CHEST 2 V 08/08 1508 Report Impression - Status: SIGNED Entered: 08/08/2024 171 IMPRESSION: No acute cardiopulmonary process. Impression By: [email or web address] Marsha Ralph D.O. Discharge Instructions PCP PCP: PCP: Gavin Howe MD )( Discharge to: Home/Self Care Discharge Instructions Additional Discharge Routines: Attending Follow-Up )( Diet: Cardiac )( Activity: As Tolerated Follow-up Appointments Attending Physician: Attending Physician: Gavin Howe MD Attending physician follow up timeframe: In 1-2 weeks Quality: Discharge Advanced Care Plan 65 or Older Discussed with: patient at 1019 RPT #:[id number] END OF REPORT [facility] 2024-08-08 15:25:00 [facility] ([facility] Hospitalist History Physical REPORT#:[id number] REPORT STATUS: Signed REPORT INITIALIZATION DATE:08/08/24 TIME: 152 PATIENT: NORI CERNA UNIT #: [id number] ROOM/BED: : 56 AGE: 68 SEX: F ATTEND: Gavin Howe MD ADM AUTHOR: Vinod Harrington MD REPT SERVICE DT/TIME: 08/08/24 1525 * ALL edits or amendments must be made on the electronic/computer document * History of Present Illness HPI Chief complaint: PREOP EVAL FOR WATCHMAN PCP: PCP: Gavin Howe MD HPI: 68 WF WITH PAF, ON XARELTO, HTN, HLP, MILD CAD, ANXIETY/DERPRESSION, GERD, TIA, EASY BRUISING. TODAY SHE HAS NO CP/SOB/COUGH/N/V/D/F/C/SICK CONTACT. SHE CAN NORMALLY WALKS JUST ONE BLOCK WITH FEET NEUROPATHIC PAIN. Hx Obtained From Patient, Prior medical records History Past Medical Surgical Hx Additional medical history: ECHO IN 01/16 EF 55-60%, H/O PULM HTN, HYPOTHYROIDSM Additional surgical history: C/S, DIANE, ZACKARY, HYST Family History Additional family history: NO CAD/DM Social History Alcohol use: Denies EtOH use Drug use: Denies recreational drugs Smoking status for patients 13 years old or older: Former Smoker Date last smoked: 07/24/09 Packs per day: 1 Years smoked: 20 Additional social history: , LIVES WITH HER SISTER (ELIANA), HAS NO LIVING WILL, WISHES FULL CODE. Medication/Allergy-Vaccine Hx Medications: Home Medications: Rivaroxaban (XARELTO) (Unknown Dose) PO BEDTIME Allergies: Coded Allergies: No Known Allergies (08/08/24) Review of Systems Free Text ROS Notes Free Text ROS Notes: 12 POINT ROS WERE REVIEWED AND NEGATIVE. OBJECTIVE VS/I O: Patient Weight and BMI Weight (kg): 72.700 BMI: 29.3 Medications: Active Meds + DC'd Last 24 Hrs Acetaminophen (TYLENOL EXTRA STRENGTH) 1,000 MG PREOP ONCALL PO (CKD) Gabapentin (NEURONTIN) 200 MG PREOP ONCALL PO (CKD) Lactated Ringer's (LACTATED RINGERS) 1,000 ML PREOP ONCALL IV Lidocaine HCl (LIDOCAINE HCL/PF) 2 ML PREOP ONCALL LOCAL Lidocaine HCl (LIDOCAINE HCL/PF) 2 ML PREOP ONCALL LOCAL Sodium Chloride (SODIUM CHLORIDE 0.9%) 500 ML PREOP ONCALL IV Sodium Chloride (SODIUM CHLORIDE 0.9%) 500 ML PREOP ONCALL IV Sodium Chloride (SODIUM CHLORIDE 0.9%) 1,000 ML PREOP ONCALL IV Sodium Chloride (SODIUM CHLORIDE) 5 ML ASDIR PRN IV Sodium Chloride (SODIUM CHLORIDE) 10 ML ASDIR PRN IV Sodium Chloride (SODIUM CHLORIDE 0.9%) 250 ML ASDIR PRN IV General appearance: alert, awake, oriented Neck: no JVD Cardiovascular: normal heart sounds, regular rate rhythm Respiratory: aerating well, clear to auscultation Abdomen: non-tender, normal bowel sounds, soft Extremities: no edema Musculoskeletal: normal inspection Neuro/CLAM DREDGER: alert, oriented X 3, normal speech, no motor deficits Skin: normal color Psychiatry: normal affect Results Findings/Data: Laboratory Tests: 08/08 1421 Hematology WBC (4.5 - 11.0 x10 3/uL) 9.8 RBC (3.54 - 5.02 x10 6/uL) 3.50 L Hgb (11.0 - 15.0 g/dL) 9.7 L Hct (33.0 - 45.0 %) 30.6 L MCV (81.0 - 99.0 fL) 87.4 MCH (27.0 - 33.0 pg) 27.7 MCHC (33.0 - 37.0 g/dL) 31.7 L RDW (11.5 - 14.5 %) 14.4 Plt Count (150 - 400 x10 3/uL) 221 MPV (7.0 - 9.0 fL) 11.3 H Neut % (Auto) (56.0 - 77.0 %) 81.6 H Lymph % (Auto) (14.0 - 32.0 %) 12.0 L [place] % (Auto) (4.8 - 9.0 %) 3.6 L Eos % (Auto) (0.3 - 3.7 %) 2.2 Baso % (Auto) (0.0 - 2.0 %) 0.2 Neut # (Auto) (2.0 - 7.6 x10 3/uL) 7.96 H Lymph # (Auto) (1.0 - 3.8 x10 3/uL) 1.17 [place] # (Auto) (0.1 - 0.8 x10 3/uL) 0.35 Eos # (Auto) (0.0 - 0.2 x10 3/uL) 0.21 H Baso # (Auto) (0.0 - 0.2 x10 3/uL) 0.02 Abs Immat Gran (auto) (0.00 - 0.03 x10 3/uL) 0.04 H Immature Gran % (0.0 - 2.0 %) 0.4 Nucleated RBC % (0 - 0 %) 0.0 Nucleated RBCs # (Man) (0.0 - 0.1 x10 3/uL) 0.00 Laboratory Tests 08/08/24 1421: [Embedded Image Not Available] Diagnosis, Assessment Plan Free Text A P: PAF - ON XARELTO WITH EASY BRUISING, CARD SEEN, PLAN FRO WATCHMAN HTN - GOOD, CONT HOME MEDS OTHERS - STABLE DVT PX - ON XARELTO FULL CODE Quality: Gen Med Crit Care VTE Prophylaxis VTE prophylaxis initiated: yes Advanced Care Plan 65 or Older Discussed with: patient Discussion included: living will, power of district attorney, code status, FULL CODE at 1531 RPT #:[id number] END OF REPORT [facility] 2024-08-08 13:34:00 [id number] [place] [address] PATIENT NAME: NORI CERNA ADMIT DATE: ACCOUNT NO: [id number] ROOM NO: AGE: 68 REPORT TYPE: eELECTROCARDIOGRAM REPORT SEX: F ADMITTING PHYSICIAN: ATTENDING PHYSICIAN:Gavin Howe MD Order: [id number] Test Reason : PREOP Test Date/Time Stamp: ThuAug 08 2024 13:34:23 Blood Pressure : / mmHG Vent. Rate : 073 BPM Atrial Rate : 073 BPM P-R Int : 160 ms QRS Dur : 088 ms QT Int : 388 ms P-R-T Axes : 059 011 -56 degrees QTc Int : 427 ms Sinus rhythm with marked sinus arrhythmia Left ventricular hypertrophy with repolarization abnormality Abnormal ECG No previous ECGs available Confirmed by JEFFREY GIPSON MD ([id number]) on 08/08/2024 3:32:36 PM Referred By: Gavin Howe Confirmed by:JEFFREY GIPSON MD at 1532 PATIENT NAME: NORI CERNA [facility] 2024-02-22 09:12:07 SHIRIN 09/08/23 NOV 03/08/[address] [facility] note: Hypothyroidism: --Continue Levothyroxine 25 mcg daily. Take on an empty stomach. Nimco Mccabe LVN [facility] 2023-06-22 13:09:54 Formatting of this n ote might be different from the original. NOV: 09/08/23 SHIRIN: 07/01/22 Refill sent [facility] 2023-06-22 09:00:25 Formatting of this n ote might be different from the original. Images from the original note were not included. Danyell Martinez [facility]
[2024-10-05] MEDS ORDERED: NA CHLORIDE 0.9% 1,000 ML ONE (11:39)
[2024-10-05] MEDS ORDERED: ONDANSETRON 4 MG/2 ML VIAL ONE (11:39)
[2024-10-05 11:54] LABS: Absolute Eosinophils 0.2 K/uL (0-0.5); Absolute Lymphocytes (CBC) 0.8 K/uL (0.7-4.9); Absolute Monocytes 0.4 K/uL (0.1-1.3); Absolute Neutrophil 7.9 K/uL (1.8-8.0); Basophils % 0.5 % (0-1.3); Eosinophils % 1.6 % (0-4.4); Hematocrit 32.7 % (36.0-45.0); Hemoglobin 10.6 g/dL (12.0-15.0); Lymphocytes % 8.4 % (15.3-44.8); MCH 26.9 pg (27.0-35.0); MCHC 32.4 g/dL (32.0-36.0); MCV 83.2 fL (80-100); Monocytes % 4.7 % (3.3-12.3); Neutrophils % 84.8 % (41.7-73.7); Platelets 224 thou/uL (152-406); RBC Red Blood Cell Count 3.93 M/uL (3.86-4.86); Red Cell Distribution Width 14.3 % (12.1-15.2)
--- NOTE | 2024-10-05 11:57 | RAD REPORT ---
Procedure: Chest Single View HISTORY: Chest pain COMPARISON: April 2024 FINDINGS: The lungs appear clear of acute infiltrate. No significant pleural effusion noted. The heart is normal size. IMPRESSION: No acute abnormality is displayed.
--- NOTE | 2024-10-05 12:01 | RAD REPORT ---
Exam:Humerus Right CLINICAL HISTORY: Right arm pain FINDINGS: No fracture or dislocation seen
[2024-10-05 12:10] LABS: Albumin 3.3 g/dL (3.4-5.0); Albumin/Globulin Ratio 0.9 (1.1-1.8); Anion Gap 9.6 mEq/L (5.0-15.0); Bilirubin Total 0.5 mg/dL (0.2-1.0); Globulin 3.8 g/dL (2.3-3.5); Potassium 3.6 mEq/L (3.5-5.1); Protein, Total 7.1 g/dL (6.4-8.2)
--- NOTE | 2024-10-05 12:48 | RAD REPORT ---
EXAM: CT brain without contrast HISTORY: GLF;Trauma COMPARISON: 01/04/2024 TECHNIQUE: Multiple contiguous axial images were obtained and a CT of the brain without contrast. Sag ittal and coronal reformats were performed. One or more of the following dose reduction techniques were used: Automated exposure control, adjust ment of the mA and/or kV according to patient size, and/or iterative reconstruction. FINDINGS: No evidence of hydrocephalus, intracranial hemorrhage, or extra-axial fluid collection. Mild brain atrophy with mild periventricular and deep white matter chronic microvascular ischemic ch anges present. No evidence of midline shift or areas of brain edema. The calvarium is intact. The visualized paranasal sinuses and mastoid air cells are essentially clear . IMPRESSION: No evidence of acute intracranial abnormality.
--- NOTE | 2024-10-05 12:54 | RAD REPORT ---
EXAMINATION: CT ABDOMEN AND PELVIS WITH CONTRAST CLINICAL INDICATION: ABD PAIN TECHNIQUE: CT abdomen and pelvis was performed, after the administration of IV contrast, as per [facility] protocol. Axial, sagittal and coronal reconstructions were obtained. One or more of the following dose reduction techniques were used: Automated exposure control, adjustment of the mA and k V according to patient size, and iterative reconstruction. Unless otherwise specified, incidental findings do not require dedicated imaging follow-up. COMPARISON: 04/01/2022 FINDINGS: LOWER CHEST: Small right pleural effusion. LIVER: Normal in size and contour. No focal lesion. Cholecystectomy clips. Mild pneumobilia. SPLEEN: Normal size. No focal lesion. PANCREAS: No mass, ductal dilation, or haylee-pancreatic fluid. ADRENALS: Normal; no mass. KIDNEYS: 24 mm large stone superior pole right kidney. No hydronephrosis. GASTROINTESTINAL TRACT: No evidence of free air, significant intra-abdominal free fluid, bowel obstru ction or abscess. Significant retained stool seen in the colon, particularly the transverse colon. APPENDIX: Normal appendix. LYMPH NODES: No lymphadenopathy. MUSCULOSKELETAL: No acute or suspicious osseous abnormality. ADDITIONAL FINDINGS: None. IMPRESSION: No acute or concerning abnormalities seen in the abdomen or pelvis. Large amount of stool retained in the colon. Large calculus superior pole right kidney without hydronephrosis.
[2024-10-05 13:52] LABS: Specific Gravity 1.017 (1.005-1.030); Urine Bilirubin NEGATIVE (Negative); Urine Blood Negative (Negative); Urine Clarity Clear (Clear); Urine Color Colorless (Yellow); Urine Glucose NEGATIVE (Negative); Urine Ketones NEGATIVE (Negative); Urine Microscopic Reflex YN NO UMIC; Urine Nitrite NEGATIVE (Negative); Urine Protein NEGATIVE (Negative); Urine Urobilinogen Normal (Normal)
--- NOTE | 2024-10-05 13:53 | ER ---
Nurse's Notes [facility] Name: Dulce Cerna Age: 68 yrs Sex: Female : 1955 Arrival Date: 10/05/2024 Time: 10:24 Bed 8 Private MD: Diagnosis: Weakness;Shoulder Pain;Abdominal pain, unspecified;Anemia, unspecified;Constipation, unspecified Presentation: 10/05 10:31 Chief complaint: EMS states: patient had a fall this morning, complaining of right arm ap3 pain, right hip pain. patient also complaining of increased weakness over the last week or so. patient reports increased urinary frequency and urgency. Coronavirus screen: At this time, the client does not indicate any symptoms associated with coronavirus-19. Ebola Screen: No symptoms or risks identified at this time. Risk Assessment: Do you want to hurt yourself or someone else? Patient reports no desire to harm self or others. Onset of symptoms is unknown. 10:31 Method Of Arrival: EMS: [facility] ap3 10:31 Acuity: TRACY 3 ap3 14:09 Initial Sepsis Screen: Does the patient meet any 2 criteria? No. Patient's initial ll1 sepsis screen is negative. Does the patient have a suspected source of infection? No. Patient's initial sepsis screen is negative. Triage Assessment: 10:33 General: Appears in no apparent distress. Behavior is calm, cooperative. Pain: ap3 Complains of pain in right hip and right arm. Neuro: Level of Consciousness is awake, alert, obeys commands, Oriented to person, place, time, situation, Speech is normal. Cardiovascular: Patient's skin is warm and dry. Respiratory: Airway is patent Respiratory effort is even, unlabored, Respiratory pattern is regular, symmetrical. Derm: Bruising that is on right bicep. Historical: - Allergies: 10:32 PENICILLINS; ap3 10:32 Sulfa (Sulfonamide Antibiotics); ap3 - PMHx: 10:32 addisons; Chronic pain; Depression; Early Dementia; Hyperlipidemia; Irritable bowel ap3 syndrome; TIA; - Immunization history:: Adult Immunizations unknown. - Infectious Disease History:: Denies. - Social history:: Smoking status: unknown. Screenin:07 [facility] ED Fall Risk Assessment (Adult) History of falling in the last 3 months, ph including since admission Yes- fall prone (multiple falls) (3 pts) Confusion or Disorientation No (0 pts) Intoxicated or Sedated No (0 pts) Impaired Gait Yes (1 pt) Mobility Assist Device Used Yes (1 pt) Altered Elimination Yes (1 pt) Score/Fall Risk Level 3 or more points = High Risk Oriented to surroundings, Maintained a safe environment, Hourly rounding (assess needs \T\ fall precautionary measures) done, Used ambulatory aids as needed (educated on \T\ assisted with). Abuse screen: Denies threats or abuse. Denies injuries from another. Nutritional screening: No deficits noted. Tuberculosis screening: No symptoms or risk factors identified. Assessment: 11:54 Reassessment: No changes from previously documented assessment. Patient and/or family ll1 updated on plan of care and expected duration. Pain level reassessed. Patient is alert, oriented x 3, equal unlabored respirations, skin warm/dry/pink. 13:32 Reassessment: No changes from previously documented assessment. Patient and/or family ll1 updated on plan of care and expected duration. Pain level reassessed. Patient is alert, oriented x 3, equal unlabored respirations, skin warm/dry/pink. 14:08 Reassessment: No changes from previously documented assessment. Patient and/or family ll1 updated on plan of care and expected duration. Pain level reassessed. Patient is alert, oriented x 3, equal unlabored respirations, skin warm/dry/pink. Vital Signs: 11:06 BP 118 / 107; Pulse 80; Resp 18; Temp 99; Pulse Ox 98% on R/A; Weight 71.67 kg; Height ph 5 ft. 2 in. ; 11:54 BP 120 / 101; Pulse 55; Resp 18; Pulse Ox 95% on R/A; ll1 14:08 BP 132 / 86; Pulse 89; Resp 17; Temp 97.6; Pulse Ox 96% ; ll1 11:06 Body Mass Index 28.90 (71.67 kg, 157.48 cm) ED Course: 10:27 Patient arrived in ED. ec2 10:27 Sigifredo Burgess MD is Attending Physician. ec2 10:32 Triage completed. ap3 10:52 Michael Godfrey RN is Primary Nurse. ll1 11:07 Arm band placed on Patient placed in an exam room, on a stretcher, on pulse oximetry. ph 11:08 Patient has correct armband on for positive identification. Bed in low position. Call ph light in reach. Side rails up X2. Pulse ox on. NIBP on. Door closed. Noise minimized. Warm blanket given. 11:11 CXR XRAY In Process Unspecified. EDMS 11:11 Humerus Right XRAY In Process Unspecified. EDMS 11:29 Missed attempt(s): 24 gauge in right forearm. Bleeding controlled, band aid applied, ph catheter tip intact. Missed attempt(s): 24 gauge in left wrist. Bleeding controlled, band aid applied, catheter tip intact. 11:50 Inserted saline lock: 20 gauge in right EJ, using aseptic technique. ,using aseptic ll1 technique. per Dr. Burgess Blood collected. Flushed with 10 mL NS. 12:33 CT Abd/Pelvis - IV Contrast Only In Process Unspecified. EDMS 12:33 CT Head Brain wo Cont In Process Unspecified. EDMS 13:31 Urinalysis w/ reflexes Sent. ll1 14:08 No provider procedures requiring assistance completed. IV discontinued, intact, ll1 bleeding controlled, No redness/swelling at site. Pressure dressing applied. 14:10 Provided Education on: return to ED as needed. ll1 Administered Medications: 11:53 Drug: Ondansetron IVP 4 mg IVP once; over 2 minutes Route: IVP; Site: right jugular; ll1 14:18 Follow up: Response: No adverse reaction; Nausea is decreased ll1 11:53 Drug: NS 0.9% IV 1000 ml IV at 1 bolus Per protocol; to be given as a bolus over 60 ll1 minutes Route: IV; Rate: 1 bolus; Site: right jugular; 14:18 Follow up: Response: No adverse reaction; IV Status: Completed infusion; IV Intake: ll1 1000ml Medication: 11:07 VIS not applicable for this client. ph Intake: 14:18 IV: 1000ml; Total: 1000ml. ll1 Outcome: 13:53 Discharge ordered by . ec2 14:09 Discharged to home via wheelchair, ll1 14:09 Condition: stable 14:09 Discharge instructions given to patient, Instructed on discharge instructions, follow up and referral plans. medication usage, Demonstrated understanding of instructions, follow-up care, medications, Prescriptions given X 1, 14:19 Patient left the ED. ll1 Signatures: Dispatcher [employer] Cyn Mccarthy RN RN Elodia Jade RN RN ap3 Michael Godfrey RN RN ll1 Sigifredo Burgess MD MD ec2
--- NOTE | 2024-10-05 13:53 | EDPHYS ---
Physician Documentation [facility] Name: Dulce Cerna Age: 68 yrs Sex: Female : 1955 Arrival Date: 10/05/2024 Time: 10:24 Bed 8 Private MD: ED Physician Sigifredo Burgess HPI: 10/05 10:39 This 68 yrs old Female presents to ER via EMS with complaints of Fall Injury. ec2 10:39 Patient arrives today for evaluation after ground-level fall. States that she fell and ec2 injured her right upper extremity, also struck her head. Patient is on Plavix. No LOC. Denies any prodromal symptoms such as chest pain, shortness of breath. Reports she has been having some abdominal pain has been ongoing for at least a week. Reports generalized weakness. 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 Historical: - Allergies: 10:32 PENICILLINS; ap3 10:32 Sulfa (Sulfonamide Antibiotics); ap3 - PMHx: 10:32 addisons; Chronic pain; Depression; Early Dementia; Hyperlipidemia; Irritable bowel ap3 syndrome; TIA; - Immunization history:: Adult Immunizations unknown. - Infectious Disease History:: Denies. - Social history:: Smoking status: unknown. ROS: 10:39 Constitutional: as per hpi ec2 Exam: 10:39 Constitutional: GEN: NAD Head: atraumatic Eyes: EOMI Ears: External ears are ec2 normal. CV: regular rate LUNGS: no respiratory distress ABD: non-distended, soft, tender in the abdomen, not guarding, not rigid SKIN: no evidence of rashes MSK: Contusion ecchymosis noted to the right humerus, intact range of motion. Vital Signs: 11:06 BP 118 / 107; Pulse 80; Resp 18; Temp 99; Pulse Ox 98% on R/A; Weight 71.67 kg; Height ph 5 ft. 2 in. ; 11:54 BP 120 / 101; Pulse 55; Resp 18; Pulse Ox 95% on R/A; ll1 14:08 BP 132 / 86; Pulse 89; Resp 17; Temp 97.6; Pulse Ox 96% ; ll1 11:06 Body Mass Index 28.90 (71.67 kg, 157.48 cm) ph MDM: 10:27 Medical Screening Exam initiated ec2 10:39 Data reviewed: vital signs, nurses notes. ED course: Patient arrives today for ec2 evaluation of febrile low fall with complaints of shoulder pain as well as abdominal pain and a head strike. Examination remarkable for MSK findings as above otherwise tender abdomen. Will obtain lab work, CT scan of the head, CT abdomen pelvis, also radiograph of the right humerus to evaluate for fracture. Differential diagnose include humerus fracture, intracranial brain bleed, doubt C-spine fracture, anemia, electrolyte disturbances, arrhythmia. 11:30 ED course: EKG independently reviewed and interpreted by me, shows atrial fibrillation, ec2 rate of 93, no acute ST segment elevations, intervals are nonactionable.. 13:24 ED course: CBC, metabolic profile, CT of abdomen pelvis are nonactionable. Does have ec2 constipation noted on the CT imaging. CT of the head shows no acute intracranial process. Chest x-ray without acute traumatic process. Humerus x-ray without traumatic process identified. Pending urine studies.. 13:52 ED course: Urine noninfectious appearing. Will discharge home and have the patient ec2 follow-up with her primary care doctor. Return precautions given.. 10/05 10:29 Order name: CBC with Diff; Complete Time: 12:02 ec2 10/05 10:29 Order name: CMP; Complete Time: 12:13 ec2 10/05 10:29 Order name: Urinalysis w/ reflexes; Complete Time: 13:52 ec2 10/05 10:29 Order name: CT Abd/Pelvis - IV Contrast Only; Complete Time: 13:17 ec2 10/05 10:29 Order name: CT Head Brain wo Cont; Complete Time: 13:17 ec2 10/05 10:29 Order name: CXR XRAY; Complete Time: 12:02 ec2 10/05 10:29 Order name: Humerus Right XRAY; Complete Time: 12:02 ec2 10/05 10:29 Order name: IV Saline Lock; Complete Time: 10:52 ec2 10/05 10:29 Order name: Labs collected and sent; Complete Time: 10:52 ec2 10/05 10:29 Order name: EKG - Nurse/Tech; Complete Time: 11:29 ec2 Administered Medications: 11:53 Drug: Ondansetron IVP 4 mg IVP once; over 2 minutes Route: IVP; Site: right jugular; ll1 14:18 Follow up: Response: No adverse reaction; Nausea is decreased ll1 11:53 Drug: NS 0.9% IV 1000 ml IV at 1 bolus Per protocol; to be given as a bolus over 60 ll1 minutes Route: IV; Rate: 1 bolus; Site: right jugular; 14:18 Follow up: Response: No adverse reaction; IV Status: Completed infusion; IV Intake: ll1 1000ml Disposition Summary: 10/05/24 13:53 Discharge Ordered Notes: Location: Home ec2 Condition: Stable ec2 Diagnosis - Weakness ec2 - Shoulder Pain ec2 - Abdominal pain, unspecified ec2 - Anemia, unspecified ec2 - Constipation, unspecified ec2 Followup: ec2 - With: Private Physician - When: - Reason: Re-evaluation by your physician Discharge Instructions: - Discharge Summary Sheet ec2 - Abdominal Pain, Adult ec2 Forms: - Medication Reconciliation Form ec2 - Antibiotic Education ec2 - Prescription Opioid Use ec2 - Patient Portal Instructions ec2 - Leadership Thank You Letter ec2 Prescriptions: - Lactulose 10 gram/15 mL Oral Solution - take 30 milliliters ORAL route once daily; 300 milliliter; Refills: 0, Product ec2 Selection Permitted Signatures: Dispatcher [employer] Cyn Mccarthy RN RN Elodia Jade RN RN ap3 Michael Godfrey RN RN ll1 Sigifredo Burgess MD MD ec2 Corrections: (The following items were deleted from the chart) 13:31 13:24 Gonzales ordered. ec2 ll1
[2024-10-05 14:54] VITALS: BP 132/86; TEMP 97.6; O2SAT 96
== END 2024-10-05 14:19 | disposition home or self-care (01) ==
LOC: ER 10:24
DX: R53.1 Weakness (principal); M25.511 Pain in right shoulder; R10.9 Unspecified abdominal pain; D64.9 Anemia, unspecified; K59.00 Constipation, unspecified; W18.30XA Fall on same level, unspecified, initial encounter; G89.29 Other chronic pain
CPT/HCPCS: 85025; 36415; 81003; 80053; 70450; 74177; 71045; 73060; Q9967; J2405; J7030

== ENCOUNTER 2024-11-15 10:49 | Emergency (ER) | payer OTHER ==
--- OUTSIDE RECORDS SUMMARY | 2024-11-15 10:54 | XMS REPORT | Continuity of Care Document ---
Author Name Unknown Address [address] [facility] [address] [place] [address] [facility] Address [address] [facility] [address] [place] [address] Care Team Providers Care Manager Energy Name Role Phone Josie Hilario Primary Care Physician [phone] Gavin Howe Attending Clinician Unavailable Lizbeth Cardenas MD Attending Clinician [phone] LIZBETH CARDENAS Attending Clinician Unavailable Lab, Ang - Db Attending Clinician Unavailable Lizbeth Cardenas MD Attending Clinician [phone] Jolanta Lee MD Attending Clinician [phone] JOLANTA LEE Attending Clinician Unavailable JERONIMO MANZANO Attending Clinician Unavailable Lab, Ang - Db Attending Clinician Unavailable RADIOLOGY Attending Clinician Unavailable Radiology Attending Clinician Unavailable Doctor Unassigned, [place] Attending Clinician Jose Carlos Attending Clinician [phone] JOSE ORTIZ Attending Clinician Unavailable VIKKI DONATO Attending Clinician Unavaildora Donato MD, Vikki Moon Attending Clinician [phone], [facility] Attending Clinician Unavailable Unknown, Attending Attending Clinician Unavailab CARLITA Fajardo Attending Clinician Unavailable Jeanne TREADWELL, Jesus Jolly Attending Clinician [phone] JESUS NEWMAN Attending Clinician Unavaildora Mcdonnell MD, Marychuy Ferreira Attending Clinician Dillon Pateliaz RD, Joyce Attending Clinician [phone] Physician, No Primary or Family Admitting Clinic agus Unavailable Gavin Howe Admitting Clinician Unavailable JOSIE HILARIO Admitting Clinician Unavailable JOSE ORTIZ Admitting Clinician Unavailable Payers Payer Name Policy Type Policy Number Effective Date Expirati on Date Source [employer] MEDICARE ADVANTAGE [id number] 2021 00:00:00 2024 00:00:[address] 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 01-11 00:00: 00 [facility] Chest pain Chest pain Disease Active 01-11 00:00: 00 [facility] Obesity (BMI 30-39.9) Obesity (BMI 30-39.9) Disease Active 01-11 00:00: 00 [facility] 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 Disease Active 06-09 00:00: 00 [facility] Abnormal thyroid blood test Abnormal thyroid blood test Disease Active 06-09 00:00: 00 [facility] Gosper disease Gosper disease Disease Active 06-09 00:00: 00 [facility] Allergies, Adverse Reactions, Alerts Allergy Name Allergy Type Status Severity Reaction(s) Onset Date Inactive Date Treating Clinician Comments Source No Known Allergie s DA Active U 916 00:00: 00 [facility] Penicill ins Propensi ty to adverse reaction s Active Anaphylaxis 2006-11 00:00: 00 [facility] Sulfa (Sulfona mide Antibiot ics) Propensi ty to adverse reaction s Active Anaphylaxis 2006-11 00:00: 00 [facility] Penicill ins Propensi ty to adverse reaction s Active Anaphylaxis 2006-11 00:00: 00 [facility] PENICILL INS Drug Class Active Anaphylaxis 2006-11 0 00:00: 00 [facility] SULFA (SULFONA MIDE ANTIBIOT ICS) Drug Class Active Anaphylaxis 2006-11 00:00: 00 [facility] Social History Social Habit Start Date Stop Date Quantity Comments Source History of tobacco use Current smoker [facility] Gender identity [facility] Sexual orientation [facility] Alcoholic beverage intake 2023-09-29 00:00:00 2023-09-29 00:00:00 Lifetime non-drinker (finding) [facility] Alcohol intake 2023-09-29 00:00:00 2023-09-29 00:00:00 Lifetime non-drinker (finding) [facility] History of Social function 2023-09-08 00:00:00 2023-09-08 00:00:[address] [facility] Exposure to SARS-CoV-2 (event) 2023-03-16 00:00:00 2023-03-26 11:31:[address] [facility] Tobacco use and exposure 2021-05-03 00:00:00 2021-05-03 00:00:[address] Smokeless tobacco non-user [facility] Sex assigned at 1955 00:00:00 1955 00:00:[address] [facility] Smoking Status Start Date Stop Date Source Ex-smoker 2021-05-03 00:00:00 2021-05-03 00:00:00 [facility] Medications Ordered Medication Name Filled Medication Name Start Date Stop Date Current Medication? Ordering Clinician Indication Dosage Frequency Signature (SIG) Comments Components Source alendronate 70 mg tablet 03-08 00:00: 00 Yes [id number] 70mg Take 1 tablet by mouth weekly. [facility] fludrocorti sone 0.1 mg tablet 03-08 00:00: 00 Yes [id number] .1mg Take 1 tablet by mouth in the morning. [facility] hydrocortis one 10 mg tablet 03-08 00:00: 00 Yes [id number] TAKE 1.5 TABLETS BY MOUTH EVERY MORNING AND 1/2 TABLET AT 2 PM EVERY DAY AND TAKE AN EXTRA TABLET ON SICK DAYS [facility] levothyroxi ne 25 mcg tablet 03-08 00:00: 00 Yes [id number] 25ug Take 1 tablet by mouth every morning. [facility] levothyroxi ne 25 mcg tablet 02-21 00:00: 00 03-08 00:00 :00 No [id number] 25ug TAKE 1 TABLET BY MOUTH EVERY MORNING [facility] LINZESS 290 mcg Cap 2022-11 00:00: 00 Yes [id number] 290ug TAKE 1 CAPSULE BY MOUTH IN THE MORNING [facility] BABY ASPIRIN ORAL 2022-11 13:10: 10 Yes 81mg Take 81 mg by mouth. [facility] rosuvastati n 10 mg tablet 2022-11 13:10: 10 Yes 10mg Take 1 tablet by mouth at bedtime. [facility] DULoxetine 60 mg capsule 2022-11 13:10: 10 Yes 60mg Take 1 capsule by mouth in the morning. [facility] estradiol 2 mg tablet 2022-11 13:10: 10 Yes 2mg Take 1 tablet by mouth in the morning. [facility] melatonin 10 mg Tab 2022-11 13:10: 10 Yes 10mg Take 10 mg by mouth. [facility] clonazePAM 2 mg tablet 2022-11 13:10: 10 Yes 2mg Take 1 tablet by mouth in the morning and 1 tablet at noon and 1 tablet in the evening. [facility] benzonatate (TESSALON PERLES) 100 mg capsule 2022-11 00:00: 00 Yes [id number] Take 1-2 capsules three times a day as needed for cough. [facility] promethazin e-dextromet horphan 6.25-15 mg/5 mL syrup 2022-11 00:00: 00 Yes [id number] 5mL Take 5 mL by mouth 4 (four) times daily as needed for Cough. [facility] linaCLOtide (LINZESS) 290 mcg Cap 2022-11 00:00: 00 10-30 00:00 :00 No [id number] 290ug Take 1 capsule by mouth in the morning. [facility] alendronate 70 mg tablet 2022-11 0-17 00:00: 00 03-08 00:00 :00 No [id number] 70mg Take 1 tablet by mouth weekly. [facility] fludrocorti sone 0.1 mg tablet 2022-11 017 00:00: 00 03-08 00:00 :00 No [id number] .1mg Take 1 tablet by mouth in the morning. [facility] hydrocortis one 10 mg tablet 2022-11 0-17 00:00: 00 03-08 00:00 :00 No [id number] TAKE 1.5 TABLETS BY MOUTH EVERY MORNING AND 1/2 TABLET AT 2 PM EVERY DAY AND TAKE AN EXTRA TABLET ON SICK DAYS [facility] levothyroxi ne 25 mcg tablet 2022-11 0-17 00:00: 00 02-21 00:00 :00 No [id number] 25ug Take 1 tablet by mouth every morning. [facility] hydrocortis one 10 mg tablet 2023-0 7-31 00:00: 00 09-08 00:00 :00 No [id number] TAKE 1.5 TABLETS BY MOUTH EVERY MORNING AND 1/2 TABLET AT 2 PM EVERY DAY AND TAKE AN EXTRA TABLET ON SICK DAYS [facility] ALENDRONATE 70 mg tablet 6-17 00:00: 00 09-08 00:00 :00 No [id number] 70mg TAKE 1 TABLET BY MOUTH WEEKLY [facility] FLUDROCORTI SONE 0.1 mg tablet 5-04 00:00: 00 09-08 00:00 :00 No [id number] .1mg TAKE 1 TABLET BY MOUTH IN THE MORNING [facility] LEVOTHYROXI NE 25 mcg tablet 5- 00:00: 00 09-08 00:00 :00 No [id number] 25ug TAKE 1 TABLET BY MOUTH EVERY MORNING [facility] alendronate 70 mg tablet 4-26 00:00: 00 05-09 00:00 :00 No [id number] 70mg TAKE 1 TABLET BY MOUTH WEEKLY [facility] hydrocortis one 10 mg tablet 4-03 00:00: 00 06-22 00:00 :00 No [id number] TAKE 1.5 TABLETS BY MOUTH EVERY MORNING AND 1/2 TABLET AT 2 PM EVERY DAY AND TAKE AN EXTRA TABLET ON SICK DAYS [facility] hydrocortis one 10 mg tablet 2021-11 2-11 00:00: 00 02-23 00:00 :00 No [id number] TAKE 1.5 TABLETS BY MOUTH EVERY MORNING AND 1/2 TABLET AT 2 PM EVERY DAY AND TAKE AN EXTRA TABLET ON SICK DAYS [facility] LEVOTHYROXI NE 25 mcg tablet 2021-11 1-28 00:00: 00 03-26 00:00 :00 No [id number] 25ug TAKE 1 TABLET BY MOUTH EVERY MORNING [facility] fludrocorti sone 0.1 mg tablet 8-09 00:00: 00 03-26 00:00 :00 No [id number] .1mg Take 1 tablet by mouth in the morning. [facility] alendronate 70 mg tablet 07-01 00:00: 00 03-18 00:00 :00 No [id number] 70mg Take 1 tablet by mouth weekly. [facility] fludrocorti sone 0.1 mg tablet 07-01 00:00: 00 07-01 00:00 :00 No [id number] .2mg Take 2 tablets by mouth in the morning. [facility] LEVOTHYROXI NE 25 mcg tablet 05-10 00:00: 00 10-20 00:00 :00 No [id number] 25ug TAKE 1 TABLET BY MOUTH EVERY MORNING [facility] hydrocortis one 10 mg tablet 05-04 00:00: 00 11-02 00:00 :00 No [id number] TAKE 2 TABLETS BY MOUTH EVERY MORNING AND 1 TABLET AT 2 PM EVERY DAY AND TAKE AN EXTRA TABLET ON SICK DAYS [facility] OZEMPIC 0.25 mg or 0.5 mg(2 mg/1.5 mL) PnIj 04-14 00:00: 00 Yes [facility] ARIPiprazol e 2 mg tablet 04-14 00:00: 00 Yes [facility] LINZESS 145 mcg capsule 04-14 00:00: 00 09-29 00:00 :00 No [facility] rosuvastati n 10 mg tablet 2020-11 10:28: 48 Yes 10mg Take 1 tablet by mouth at bedtime. [facility] melatonin 10 mg Tab 2020-11 10:28: 00 Yes 10mg Take 10 mg by mouth. [facility] DULoxetine 60 mg capsule 2020-11 10:27: 59 Yes 60mg Take 1 capsule by mouth in the morning. [facility] estradiol 2 mg tablet 2020-11 10:27: 59 Yes 2mg Take 1 tablet by mouth in the morning. [facility] BABY ASPIRIN ORAL 2020-11 10:27: 58 Yes 81mg Take 81 mg by mouth. [facility] clonazePAM 2 mg tablet 2020-11 10:27: 58 Yes 2mg Take 1 tablet by mouth in the morning and 1 tablet at noon and 1 tablet in the evening. [facility] metoprolol tartrate 37.5 mg Tab 2020-11 00:00: 00 Yes 37.5mg Take 37.5 mg by mouth daily. [facility] ALENDRONATE 70 mg tablet 2020-11 00:00: 00 07-01 00:00 :00 No [id number] 70mg TAKE 1 TABLET BY MOUTH WEEKLY [facility] Oxycodone 10 mg Tab 12-31 00:00: 00 Yes [facility] zaleplon 5 mg capsule 12-03 00:00: 00 Yes [facility] amitriptyli ne 100 mg tablet 05-23 00:00: 00 Yes 200mg Take 2 tablets by mouth at bedtime. [facility] omeprazole 20 mg capsule 05-07 00:00: 00 Yes 20mg Take 1 capsule by mouth in the morning. [facility] ALPRAZolam 1 mg tablet 03-17 00:00: 00 Yes 1mg Take 1 tablet by mouth in the morning. [facility] Immunizations Ordered Immunization Name Filled Immunization Name Date Status Comments Source SARS-COV-2 COVID-19 PFIZER VACCINE 2021-02-04 00:00:[address] [facility] SARS-COV-2 COVID-19 PFIZER VACCINE 2021-02-04 00:00:[address] [facility] SARS-COV-2 COVID-19 PFIZER VACCINE 2021-02-04 00:00:[address] [facility] SARS-COV-2 COVID-19 PFIZER VACCINE 2021-02-04 00:00:[address] [facility] SARS-COV-2 COVID-19 PFIZER VACCINE 2021-02-04 00:00:[address] [facility] SARS-COV-2 COVID-19 PFIZER VACCINE 2021-02-04 00:00:[address] [facility] SARS-COV-2 COVID-19 PFIZER VACCINE 2021-02-04 00:00:[address] [facility] SARS-COV-2 COVID-19 PFIZER VACCINE 2021-02-04 00:00:[address] [facility] SARS-COV-2 COVID-19 PFIZER VACCINE 2021-02-04 00:00:[address] [facility] SARS-COV-2 COVID-19 PFIZER VACCINE 2021-02-04 00:00:[address] [facility] SARS-COV-2 COVID-19 PFIZER VACCINE 2021-02-04 00:00:[address] [facility] SARS-COV-2 COVID-19 PFIZER VACCINE 2021-02-04 00:00:[address] [facility] SARS-COV-2 COVID-19 PFIZER VACCINE 2021-02-04 00:00:[address] [facility] SARS-COV-2 COVID-19 PFIZER VACCINE 2021-02-04 00:00:[address] [facility] SARS-COV-2 COVID-19 PFIZER VACCINE 2021-02-04 00:00:[address] [facility] SARS-COV-2 COVID-19 PFIZER VACCINE 2021-01-14 00:00:[address] [facility] SARS-COV-2 COVID-19 PFIZER VACCINE 2021-01-14 00:00:[address] [facility] SARS-COV-2 COVID-19 PFIZER VACCINE 2021-01-14 00:00:[address] [facility] SARS-COV-2 COVID-19 PFIZER VACCINE 2021-01-14 00:00:[address] [facility] SARS-COV-2 COVID-19 PFIZER VACCINE 2021-01-14 00:00:[address] [facility] SARS-COV-2 COVID-19 PFIZER VACCINE 2021-01-14 00:00:[address] [facility] SARS-COV-2 COVID-19 PFIZER VACCINE 2021-01-14 00:00:[address] [facility] SARS-COV-2 COVID-19 PFIZER VACCINE 2021-01-14 00:00:[address] [facility] SARS-COV-2 COVID-19 PFIZER VACCINE 2021-01-14 00:00:[address] [facility] SARS-COV-2 COVID-19 PFIZER VACCINE 2021-01-14 00:00:[address] [facility] SARS-COV-2 COVID-19 PFIZER VACCINE 2021-01-14 00:00:[address] [facility] SARS-COV-2 COVID-19 PFIZER VACCINE 2021-01-14 00:00:[address] [facility] SARS-COV-2 COVID-19 PFIZER VACCINE 2021-01-14 00:00:[address] [facility] SARS-COV-2 COVID-19 PFIZER VACCINE 2021-01-14 00:00:[address] [facility] SARS-COV-2 COVID-19 PFIZER VACCINE 2021-01-14 00:00:[address] [facility] Influenza Virus Vaccine Quad IM 3+ YRS 2018-01-[address] 00:00:[address] [facility] Influenza Virus Vaccine Quad IM 3+ YRS 2018-01-[address] 00:00:[address] [facility] Influenza Virus Vaccine Quad IM 3+ YRS 2018-01-[address] 00:00:[address] [facility] Influenza Virus Vaccine Quad IM 3+ YRS 2018-01-[address] 00:00:[address] [facility] Influenza Virus Vaccine Quad IM 3+ YRS 2018-01-[address] 00:00:[address] [facility] Influenza Virus Vaccine Quad IM 3+ YRS 2018-01-[address] 00:00:[address] [facility] Influenza Virus Vaccine Quad IM 3+ YRS 2018-01-12 00:00:[address] [facility] Influenza Virus Vaccine Quad IM 3+ YRS 2018-01-12 00:00:[address] [facility] Influenza Virus Vaccine Quad IM 3+ YRS 2018-01-12 00:00:[address] [facility] Influenza Virus Vaccine Quad IM 3+ YRS 2018-01-12 00:00:[address] [facility] Influenza Virus Vaccine Quad IM 3+ YRS 2018-01-12 00:00:[address] [facility] Influenza Virus Vaccine Quad IM 3+ YRS 2018-01-12 00:00:[address] [facility] Influenza Virus Vaccine Quad IM 3+ YRS 2018-01-12 00:00:[address] [facility] Influenza Virus Vaccine Quad IM 3+ YRS 2018-01-12 00:00:[address] [facility] Influenza Virus Vaccine Quad IM 3+ YRS 2018-01-12 00:00:[address] [facility] Influenza Virus Vaccine Quad IM 3+ YRS Unknown Completed [facility] SARS-COV-2 COVID-19 PFIZER VACCINE Unknown Completed [facility] Influenza Virus Vaccine Quad IM 3+ YRS Unknown Completed [facility] SARS-COV-2 COVID-19 PFIZER VACCINE Unknown Completed [facility] Influenza Virus Vaccine Quad IM 3+ YRS Unknown Completed [facility] SARS-COV-2 COVID-19 PFIZER VACCINE Unknown Completed [facility] Influenza Virus Vaccine Quad IM 3+ YRS Unknown Completed [facility] SARS-COV-2 COVID-19 PFIZER VACCINE Unknown Completed [facility] Influenza Virus Vaccine Quad IM 3+ YRS Unknown Completed [facility] SARS-COV-2 COVID-19 PFIZER VACCINE Unknown Completed [facility] Influenza Virus Vaccine Quad IM 3+ YRS Unknown Completed [facility] SARS-COV-2 COVID-19 PFIZER VACCINE Unknown Completed [facility] Influenza Virus Vaccine Quad IM 3+ YRS Unknown Completed [facility] SARS-COV-2 COVID-19 PFIZER VACCINE Unknown Completed [facility] Influenza Virus Vaccine Quad IM 3+ YRS Unknown Completed [facility] SARS-COV-2 COVID-19 PFIZER VACCINE Unknown Completed [facility] Vital Signs Vital Name Observation Time Observation Value Comments S ource Systolic blood pressure 2024-09-20 16:49:00 135 mm[Hg] [facility] Diastolic blood pressure 2024-09-20 16:49:00 88 mm[Hg] [facility] Heart rate 2024-09-20 16:49:00 95 /min [facility] Respiratory rate 2024-09-20 16:49:00 18 /min [facility] Body height 2024-09-20 16:49:00 157.5 cm [facility] Body weight 2024-09-20 16:49:00 72.32 kg [facility] BMI 2024-09-20 16:49:00 29.16 kg/m2 [facility] Oxygen saturation in Arterial blood by Pulse oximetry 2024-09-20 16:49:00 96 /min [facility] Systolic blood pressure 2024-03-08 17:57:00 150 mm[Hg] [facility] Diastolic blood pressure 2024-03-08 17:57:00 84 mm[Hg] [facility] Body height 2024-03-08 17:47:00 157.5 cm [facility] Body weight 2024-03-08 17:47:00 74.617 kg [facility] BMI 2024-03-08 17:47:00 30.09 kg/m2 [facility] Systolic blood pressure 2023-09-29 19:09:00 136 mm[Hg] [facility] Diastolic blood pressure 2023-09-29 19:09:00 70 mm[Hg] [facility] Heart rate 2023-09-29 19:09:00 66 /min [facility] Body temperature 2023-09-29 19:09:[address] [facility] Body height 2023-09-29 19:09:00 157.5 cm [facility] Body weight 2023-09-29 19:09:00 75.342 kg Univ [facility] BMI 2023-09-29 19:09:00 30.38 kg/m2 [facility] Oxygen saturation in Arterial blood by Pulse oximetry 2023-09-29 19:09:00 97 /min [facility] Systolic blood pressure 2023-09-08 14:13:00 141 mm[Hg] [facility] Diastolic blood pressure 2023-09-08 14:13:00 84 mm[Hg] [facility] Heart rate 2023-09-08 14:13:00 82 /min [facility] Body height 2023-09-08 14:13:00 157.5 cm [facility] Body weight 2023-09-08 14:13:00 77.52 kg Univ [facility] BMI 2023-09-08 14:13:00 31.26 kg/m2 [facility] Oxygen saturation in Arterial blood by Pulse oximetry 2023-09-08 14:13:00 95 /min [facility] Systolic blood pressure 2022-07-01 15:16:00 139 mm[Hg] [facility] Diastolic blood pressure 2022-07-01 15:16:00 65 mm[Hg] [facility] Heart rate 2022-07-01 15:16:00 82 /min [facility] Body height 2022-07-01 15:16:00 157.5 cm [facility] Body weight 2022-07-01 15:16:00 81.874 kg [facility] BMI 2022-07-01 15:16:00 33.01 kg/m2 [facility] Oxygen saturation in Arterial blood by Pulse oximetry 2022-07-01 15:16:00 94 /min [facility] Procedures Procedure Date / Time Performed Performing Clinician Source POCT HEMOGLOBIN A1C TEST 2024-09-20 16:54:[address] [facility] [id number] 2024-08-10 00:00:00 RAMYA [facility] POCT HEMOGLOBIN A1C TEST 2024-03-08 17:58:[address] [facility] ASSIGNMENT OF BENEFITS 2023-03-26 16:20:55 Docto r Unassigned, [place] [facility] PATIENT QUESTIONNAIRE 2022-07-01 05:01:00 Doctor Unassigned, [place] [facility] Encounters Start Date/Time End Date/Time Encounter Type Admission Type Attending Clinicians Care Facility Care Department Encounter ID Source 2024-06-28 10:00:00 Inpatient Gavin Shaikh [facility] OUTD [id number] [facility] 2022-06-17 16:29:12 Outpatient [facility] [id number] [facility] 2022-06-05 09:43:10 Outpatient [facility] [id number] [facility] 2022-03-01 21:32:02 Outpatient [facility] [id number] [facility] 2024-10-06 00:00:00 2024-10-06 15:00:01 Telephone Lizbeth [facility] [id number] [id number] [facility] 2024-10-06 00:00:00 2024-10-06 00:00:00 Outpatient R RONALD [facility] [id number] [facility] 2024-09-30 00:00:00 2024-09-30 00:00:00 Outpatient R CARDENAS [facility] [id number] [facility] 2024-09-20 13:00:00 2024-09-20 13:15:00 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 1..840.114 350.1.13.10 4.2.7.2.686 [id number] [facility] 2024-08-10 12:28:00 2024-08-10 21:30:00 Inpatient Gavin Shaikh [facility] INTE.02 [id number] [facility] 2024-03-08 13:00:00 2024-03-08 13:32:57 Outpatient R RONALD [facility] [id number] [facility] 2024-03-08 13:00:00 2024-03-08 13:32:[address] [facility] 1..840.114 350.1.13.10 4.2.7.2.686 [id number] [facility] 2024-02-22 00:00:00 2024-02-22 00:00:00 Refill Lizbeth [facility]arden[facility] [id number] 350.1.13.10 [id number] [id number] [facility] 2023-10-30 00:00:00 2023-10-30 00:00:00 Refill Jesus [facility] 1..840.114 350.1.13.10 4.2.7.2.686 [id number] [facility] 2023-10-30 00:00:00 2023-10-30 00:00:00 Refill Jesus [facility] [id number] 350.1.13.10 [id number] [id number] [facility] 2023-09-29 13:43:28 2023-09-29 23:59:00 Outpatient [facility] [id number] [facility] 2023-09-29 13:43:28 2023-09-29 23:59:00 Hospital Encounter Jesus [facility] [id number] 350.1.13.10 4.2.7.2.686 [id number] [facility] 2023-09-29 13:00:00 2023-09-29 13:43:18 [facility] [id number] 350.1.13.10 4.2.7.2.686 [id number] [facility] 2023-09-18 13:00:00 2023-09-18 13:00:00 Outpatient R JERONIMO MANZANO [facility] [id number] [facility] [facility] 2023-09-08 10:00:00 2023-09-08 10:15:00 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, Ang - Db Ronald [facility] CULLEN?[facility] 1.2.840.114 350.1.13.10 4.2.7.2.686 [id number] [facility] 2023-09-08 09:00:00 2023-09-08 09:55:46 Outpatient R [facility] [id number] [facility] 2023-09-08 09:00:00 2023-09-08 09:55:46 Office Visit [facility] [place] [place] 1.2.840.114 350.1.13.10 4.2.7.2.686 [id number] 220 [id number] [facility] 2023-06-22 00:00:00 2023-06-22 00:00:00 Telephone [facility] CULLEN?[facility]ESSEE [facility] 1.2.840.114 350.1.13.10 4.2.7.2.686 [id number] 220 [id number] [facility] 2023-05-08 00:00:00 2023-05-08 00:00:00 Refill [facility] 1..840.114 350.1.13.10 4.2.7.2.686 [id number] 220 [id number] [facility] 2023-03-26 11:31:37 2023-03-26 23:59:00 Outpatient R RADIOLOGY [facility] [id number] [facility] 2023-03-26 11:20:00 2023-03-26 23:59:00 Hospital Encounter Radiology [facility] 1.2840.114 350.1.13.10 4.2.7.2.686 [id number] 800 [id number] [facility] 2023-03-26 00:00:00 2023-03-26 00:00:00 Orders Only Doctor Unassigned, [place] [facility] 1.2840.114 350.1.13.10 4.2.7.2.686 [id number] [facility] 2023-03-26 00:00:00 2023-03-26 00:00:00 Refill Cardenas, [facility] CULLEN?[facility] 1.2840.114 350.1.13.10 4.2.7.2.686 [id number] 220 [id number] [facility] 2023-03-18 00:00:00 2023-03-18 00:00:00 Refill Cardenas, [facility] CULLEN?[facility] 1.840.114 350.1.13.10 4.2.7.2.686 [id number] 220 [id number] [facility] 2023-02-25 00:00:00 2023-02-25 00:00:00 Telephone Cardenas, [facility] CULLEN?[facility] 1.840.114 350.1.13.10 4.2.7.2.686 [id number] 220 [id number] [facility] 2023-02-23 00:00:00 2023-02-23 00:00:00 Telephone Cardenas [facility] CULLEN?[facility] 1.2840.114 350.1.13.10 4.2.7.2.686 [id number] 220 [id number] [facility] 2023-02-14 00:00:00 2023-02-14 00:00:00 Refill Cardenas, [facility] CULLEN?[facility] 1.2840.114 350.1.13.10 4.2.7.2.686 [id number] 220 [id number] [facility] 2023-01-06 10:00:00 2023-01-06 10:00:00 Outpatient R [facility] [id number] [facility] 2022-11-02 00:00:00 2022-11-02 00:00:00 [facility] 1.2.840.114 350.1.13.10 4.2.7.2.686 [id number] 220 [id number] [facility] 2022-10-20 00:00:00 2022-10-20 00:00:00 Refhemalatha Ortiz [facility] 1.2.840.114 350.1.13.10 4.2.7.2.686 [id number] 220 [id number] [facility] 2022-07-15 00:00:00 2022-07-15 00:00:00 Telephone [facility] [place] [place]?[facility] 1.2.840.114 350.1.13.10 4.2.7.2.686 [id number] 220 [id number] [facility] 2022-07-01 11:45:00 2022-07-01 12:00:00 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 [place] 1..840.114 350.1.13.10 4.2.7.2.686 [id number] 220 [id number] [facility] 2022-07-01 00:00:00 2022-07-01 00:00:00 Orders Only Doctor Unassigned, [place] [facility] 1.84.114 350.1.13.10 4.2.7.2.686 [id number] [facility] 2022-06-06 11:30:00 2022-06-06 11:30:00 Outpatient R [facility] [id number] [facility] 2022-05-10 00:00:00 2022-05-10 00:00:00 Layla [facility] 1..840.114 350.1.13.10 4.2.7.2.686 [id number] 220 [id number] [facility] 2022-05-03 00:00:00 2022-05-03 00:00:00 Layla [facility] 1.2.840.114 350.1.13.10 4.2.7.2.686 [id number] 220 [id number] [facility] 2022-04-15 14:00:00 2022-04-15 14:00:00 Outpatient VIKKI MENDES [facility] [id number] [facility] 2022-04-10 12:07:29 2022-04-10 23:59:00 Hospital Encounter Vikki Donato [facility] 1..840.114 350.1.13.10 4.2.7.2.686 [id number] [facility] 2022-04-10 12:03:57 2022-04-10 12:06:00 Outpatient VIKKI MENDES [facility] [id number] [facility] 2022-04-10 12:03:57 2022-04-10 12:06:00 Hospital Encounter Patrick Donatoki [facility] 1.0.114 350.1.13.10 4.2.7.2.686 [id number] 800 [id number] [facility] 2022-04-01 13:45:00 2022-04-01 13:45:00 Outpatient R TANMAY VIKKI [facility] [id number] [facility] 2022-03-25 10:33:57 2022-03-25 23:59:00 [facility] 1..114 350.1.13.10 4.2.7.2.686 [id number] [facility] 2022-03-25 11:13:52 2022-03-25 10:32:00 Outpatient R TANMAY VIKKI [facility] [id number] [facility] 2022-03-25 10:30:00 2022-03-25 10:32:00 [facility] 1..114 350.1.13.10 4.2.7.2.686 [id number] 800 [id number] [facility] 2022-03-13 00:00:00 2022-03-13 00:00:00 Orders Only Doctor Unassigned, [place] [facility] 1..114 350.1.13.10 4.2.7.2.686 [id number] [id number] [facility] 2022-03-06 09:45:00 2022-03-06 10:00:00 Farm Supervisor Visit 2, Adc Lab Unknown, [facility]ending [facility] 1..114 350.1.13.10 4.2.7.2.686 [id number] [facility] 2022-03-06 09:45:00 2022-03-06 09:45:00 Outpatient R JERONIMO MANZANO [facility] [id number] [facility] 2022-03-06 09:45:00 2022-03-06 09:45:00 Outpatient R JERONIMO MANZANO [facility] [id number] [facility] 2022-03-04 08:18:01 2022-03-04 23:59:00 Outpatient R VIKKI DONATO [facility] [id number] [facility] 2022-03-04 08:18:01 2022-03-04 23:59:00 Outpatient R VIKKI DONATO [facility] [id number] [facility] 2022-03-04 08:18:01 2022-03-04 23:59:00 [facility] 1.2.840.114 350.1.13.10 4.2.7.2.686 [id number] [facility] 2022-03-03 00:00:00 2022-03-03 00:00:00 Telephone [facility] 1.2.840.114 350.1.13.10 4.2.7.2.686 [id number] [facility] 2022-03-03 00:00:00 2022-03-03 00:00:00 Telephone [facility] 1.2.840.114 350.1.13.10 4.2.7.2.686 [id number] [facility] 2022-02-21 10:40:23 2022-02-21 23:59:00 Outpatient R JOSE ORTIZ [facility] [id number] [facility] 2022-02-21 10:40:00 2022-02-21 23:59:00 [facility] 1.2.840.114 350.1.13.10 4.2.7.2.686 [id number] [facility] 2022-02-21 00:00:00 2022-02-21 00:00:00 Orders Only Doctor Unassigned, [place] [facility] 1.2.840.114 350.1.13.10 4.2.7.2.686 [id number] [facility] 2022-02-18 00:00:00 2022-02-18 00:00:00 Telephone [facility] 1.2.840.114 350.1.13.10 4.2.7.2.686 [id number] [facility] 2022-02-18 00:00:00 2022-02-18 00:00:00 Orders Only Doctor Unassigned, [place] [facility] 1.2.840.114 350.1.13.10 4.2.7.2.686 [id number] [facility] 2022-02-18 00:00:00 2022-02-18 00:00:00 Telephone [facility] 1.2.840.114 350.1.13.10 4.2.7.2.686 [id number] [facility] 2021-11-22 10:00:00 2021-11-22 10:45:13 Outpatient R [facility] [id number] [facility] 2021-11-22 10:00:00 2021-11-22 10:45:13 [facility] 1.2840.114 350.1.13.10 4.2.7.2.686 [id number] [facility] 2021-11-22 10:00:00 2021-11-22 10:45:13 Outpatient R JOSE ORTIZ [facility] [id number] [facility] 2021-10-25 00:00:00 2021-10-25 00:00:00 Refill Lizbeth Cardenas [facility] 1.2.840.114 350.1.13.10 4.2.7.2.686 [id number] [facility] 2021-08-13 11:00:00 2021-08-13 11:00:00 Outpatient R CARDE[facility] [id number] [facility] 2021-05-15 00:00:00 2021-05-15 00:00:00 Orders Only Doctor Unassigned, [place] [facility] 1.2.840.114 350.1.13.10 4.2.7.2.686 [id number] [facility] 2021-05-15 00:00:00 2021-05-15 00:00:00 Orders Only Doctor Unassigned, [place] [facility] 1.2.840.114 350.1.13.10 4.2.7.2.686 [id number] 2021-05-03 13:19:28 2021-05-03 14:16:38 [facility] 1.2.840.114 350.1.13.10 4.2.7.2.686 [id number] [facility] 2021-05-03 13:19:28 2021-05-03 14:16:38 [facility] 1.2.840.114 350.1.13.10 4.2.7.2.686 [id number] 2021-05-03 13:30:00 2021-05-03 13:30:00 Outpatient R JOSE ORTIZ [facility] [id number] [facility] 2021-04-24 00:00:00 2021-04-24 00:00:[address] [facility] 1.2.840.114 350.1.13.10 4.2.7.2.686 [id number] [facility] 2021-02-26 00:00:00 2021-02-26 00:00:[address] [facility] 1.2.840.114 350.1.13.10 4.2.7.2.686 [id number] 220 [id number] [facility] 2021-02-07 09:20:34 2021-02-07 23:59:00 Hospital Encounter Ronald [facility] 1..840.114 350.1.13.10 4.2.7.2.686 [id number] [facility] 2021-02-07 09:45:00 2021-02-07 09:45:00 Outpatient R [facility] [id number] [facility] 2021-02-07 09:19:36 2021-02-07 09:34:36 Farm Supervisor Visit 2, Adc Lab Ronald [facility] 1..840.114 350.1.13.10 4.2.7.2.686 [id number] [facility] 2021-02-07 00:00:00 2021-02-07 00:00:00 Orders Only Doctor Unassigned, [place] [facility] 1.2840.114 350.1.13.10 4.2.7.2.686 [id number] [facility] 2021-02-05 15:30:02 2021-02-05 16:24:[address] [facility] 1.2.840.114 350.1.13.10 4.2.7.2.686 [id number] [facility] 2021-02-05 15:30:00 2021-02-05 15:30:00 Outpatient R LIZBETH CARDENAS [facility] [id number] [facility] 2021-02-04 12:50:00 2021-02-04 12:50:00 Outpatient R CARLITA PADILLA [facility] [id number] [facility] 2021-01-14 10:30:00 2021-01-14 10:30:00 Outpatient R CARLITA PADILLA [facility] [id number] [facility] 2020-12-01 00:00:00 2020-12-01 00:00:00 RefJesus Luciano [facility] 1.2.840.114 350.1.13.10 4.2.7.2.686 [id number] [facility] 2020-06-15 00:00:00 2020-06-15 00:00:00 Jesus Rodriguez [facility] 1.2.840.114 350.1.13.10 4.2.7.2.686 [id number] 220 [id number] [facility] 2020-03-25 00:00:00 2020-03-25 00:00:00 Refill Lizbeth Cardenas [facility] 1.2.840.114 350.1.13.10 4.2.7.2.686 [id number] 220 [id number] [facility] 2020-03-23 13:30:00 2020-03-23 13:30:00 Outpatient R JESUS NEWMAN [facility] [id number] [facility] 2020-03-19 00:00:00 2020-03-19 00:00:00 Refhemalatha Cardenas [facility] Building 1.2.840.114 350.1.13.10 4.2.7.2.686 [id number] [facility] 2020-03-06 10:00:00 2020-03-06 10:00:00 Outpatient R [facility] [id number] [facility] 2020-03-06 08:02:38 2020-03-06 08:32:38 Telemedici ne Visit Ronald [facility] 1.2.840.114 350.1.13.10 4.2.7.2.686 [id number] 220 [id number] [facility] 2020-02-28 00:00:00 2020-02-28 00:00:00 Refill Ronald [facility] 1.2.840.114 350.1.13.10 4.2.7.2.686 [id number] [facility] 2020-02-07 09:00:00 2020-02-07 09:00:00 Outpatient R [facility] [id number] [facility] 2020-01-24 11:00:00 2020-01-24 11:30:00 Office Visit Ronald [facility] 1.2.840.114 350.1.13.10 4.2.7.2.686 [id number] [facility] 2020-01-24 11:00:00 2020-01-24 11:00:00 Outpatient R [facility] [id number] [facility] 2019-08-02 00:00:00 2019-08-02 00:00:00 Refill Marychuy Mcdonnell [facility] 1.2.840.114 350.1.13.10 4.2.7.2.686 [id number] [facility] 2019-07-26 13:14:50 2019-07-26 13:53:33 Office Visit Lizbeth Cardenas [facility] 1.2.840.114 350.1.13.10 4.2.7.2.686 [id number] [facility] 2019-07-26 00:00:00 2019-07-26 00:00:00 Orders Only Doctor Unassigned, [place] [facility] 1.2840.114 350.1.13.10 4.2.7.2.686 [id number] [facility] 2019-06-16 14:48:06 2019-06-16 15:42:48 Speech Language Pathology Assistant Visit Juan CJoyce newman [facility] 1.2.840.114 350.1.13.10 4.2.7.2.686 [id number] [facility] 2019-06-16 00:00:00 2019-06-16 00:00:00 Orders Only Doctor Unassigned, [place] [facility] 1.2.840.114 350.1.13.10 4.2.7.2.686 [id number] [facility] Results Test Description Test Time Test Comments Results Result Co mments Source [facility] [id number] 15:46:00 * Test Item Value Reference Range Interpretation Comme nts COAGULATION TIME ACTIVATED (test code = ACT) 282 SECONDS Performed by certified cooker operator at [facility] BASIC METABOLIC [id number] 13:13:00* Test Item Value Reference Range Interpretation Comme nts SODIUM (test code = NA) 141 mEq/L 134-147 N POTASSIUM (test code = K) 2.9 mEq/L 3.4-5.0 LL Critical result called to Calvin BLOUNT [id number] at 1312 08/10/24Nurse read back resut and [...] = CA) 8.3 mg/dL 8.0-10.5 N PROTHROMBIN [id number] 12:44:00* Test Item Value Reference Range Interpretation [...] Infarction (to prevent recurrent infarct). BASIC METABOLIC [id number] 15:41:00* Test Item Value Reference Range Interpretation Comme nts SODIUM (test code = NA) 138 mEq/L 134-147 N POTASSIUM (test code = K) 2.8 mEq/L 3.4-5.0 LL Critical result called to Calvin ORELLANA [id number] at 1536 08/08/24Nurse read back resut and [...] code = CA) 8.3 mg/dL 8.0-10.5 N [id number] 15:41:00* Test Item Value Reference Range Interpretation Comme nts PREALBUMIN (test code = PREALB) 13.0 mg/dL 16.0-40.0 L CBC W/AUTO [id number] 15:17:00* Test Item Value Reference Range Interpretation [...] x10 3/uL 0.0-0.1 N POCT Hemoglobin A1C [id number] 18:00:00* Test Item Value Reference Range Interpretation Comme [facility] POCT HBA1C (test code = 4548-4) 5.5 % 4-6 [facility] Hemoglobin A1C [id number] 18:00:00* Test Item Value Reference Range Interpretation Comme [facility] POCT HBA1C (test code = 4548-4) 5.5 % 4-[address] [facility]
--- NOTE | 2024-11-15 12:42 | RAD REPORT ---
EXAMINATION: CT ABDOMEN AND PELVIS WITHOUT CONTRAST CLINICAL INDICATION: Abdominal pain TECHNIQUE: CT abdomen and pelvis was performed, as per department protocol. IV contrast was not admin istered.Oral contrast given. Axial, sagittal and coronal reconstructions were obtained. One or more of the following dose reduction techniques were used: Automated exposure control, adjustment of the m A and/or kV according to the patient size, and/or iterative reconstruction. Unless otherwise specified, incidental findings do not require dedicated imaging follow-up. [id number]. COMPARISON: September 2024 FINDINGS: The lack of intravenous limits evaluation of solid organs, vessels . Cholecystectomy. Pneumobilia. Spleen, pancreas, adrenals and left kidney grossly normal. Staghorn calculus right kidney unchanged. No hydronephrosis. Hysterectomy. No adnexal mass. A large amount stool is present within the mid transverse and right colon. The colon is distended jannie suring up to 7 cm. Remainder of the colon is decompressed. Small bilateral pleural effusions. IMPRESSION: Large amount of stool within the mid transverse and right colon with mild distention. This may repres ent a fecal impaction.
--- NOTE | 2024-11-15 12:43 | RAD REPORT ---
Procedure: Chest Single View HISTORY: Cough COMPARISON: September 2024 FINDINGS: The lungs appear clear of acute infiltrate. Small pleural effusions. The heart is normal size.
[2024-11-15] MEDS ORDERED: BISACODYL 10 MG RECTAL SUPP ONE ×2 (14:14→16:35)
[2024-11-15] MEDS ORDERED: LACTULOSE 20 GM/30 ML UCUP ONE (14:14)
[2024-11-15] MEDS ORDERED: ONDANSETRON 4 MG/2 ML VIAL ONE (15:20)
[2024-11-15] MEDS ORDERED: NA CHLORIDE 0.9% 1,000 ML ONE (15:20)
[2024-11-15 15:28] LABS: Absolute Eosinophils 0.6 K/uL (0-0.5); Absolute Lymphocytes (CBC) 0.8 K/uL (0.7-4.9); Absolute Monocytes 0.4 K/uL (0.1-1.3); Absolute Neutrophil 6.8 K/uL (1.8-8.0); Basophils % 0.5 % (0-1.3); Eosinophils % 6.7 % (0-4.4); Hematocrit 28.9 % (36.0-45.0); Hemoglobin 9.6 g/dL (12.0-15.0); Lymphocytes % 9.7 % (15.3-44.8); MCH 26.7 pg (27.0-35.0); MCHC 33.1 g/dL (32.0-36.0); MCV 80.7 fL (80-100); Monocytes % 4.2 % (3.3-12.3); Neutrophils % 78.9 % (41.7-73.7); Nucleated Red Blood Cells % 0.1 % (0-0); Platelets 262 thou/uL (152-406); RBC Red Blood Cell Count 3.58 M/uL (3.86-4.86)
[2024-11-15 15:29] LABS: PT Prothrombin Time 12.1 SECONDS (9.4-12.5); Protime INR 1.08
[2024-11-15 15:43] LABS: ALT/SGPT 24 U/L (13-56); AST/SGOT 18 U/L (15-37); Albumin/Globulin Ratio 0.8 (1.1-1.8); Alkaline Phosphatase 114 U/L (45-117); Anion Gap 8.7 mEq/L (5.0-15.0); BUN Blood Urea Nitrogen 15 mg/dL (7-18); Bicarbonate 28 mEq/L (21-32); Bilirubin Direct < 0.2 mg/dL (0-0.2); Bilirubin Indirect, Calculated 0.1 mg/dL (0.2-0.8); Bilirubin Total 0.3 mg/dL (0.2-1.0); Globulin 3.9 g/dL (2.3-3.5); Glomerular Filtration Rate 72 ml/min (=/>90); Glucose Level 95 mg/dL (74-106); HDL Cholesterol 81 mg/dL (40-60); LDL Cholesterol, Calculated 42 mg/dL (<130); LDL Cholesterol,Calc NonReport 42; Magnesium 2.2 mg/dL (1.6-2.4); NT PRO-BNP 2285 pg/mL (<125); Potassium 3.7 mEq/L (3.5-5.1); Protein, Total 6.9 g/dL (6.4-8.2); Sodium Level 134 mEq/L (136-145); Troponin High Sensitivity 4.9 pg/mL (<58.9)
[2024-11-15 16:13] LABS: Specific Gravity 1.006 (1.005-1.030); Sqamous Epithelial <5 /HPF (None Seen); Urine Bacteria <20 /HPF (<20); Urine Bilirubin NEGATIVE (Negative); Urine Blood Negative (Negative); Urine Clarity Clear (Clear); Urine Color Colorless (Yellow); Urine Culture Reflex Order NOT NEEDED; Urine Glucose NEGATIVE (Negative); Urine Ketones NEGATIVE (Negative); Urine Microscopic Reflex YN ORDER UMIC; Urine Nitrite NEGATIVE (Negative); Urine Protein NEGATIVE (Negative); Urine RBC <5 /HPF (None Seen); Urine Urobilinogen Normal (Normal); Urine WBC <5 /HPF (<5); Urine WBC Clump Rare /HPF (None Seen); Urine pH 6.5 (5.0-7.0)
[2024-11-15] MEDS ORDERED: HYDROCORTISONE SUC 100 MG INJ ONE (16:20)
--- NOTE | 2024-11-15 16:20 | ER ---
Nurse's Notes [facility] Name: Dulce Cerna Age: 68 yrs Sex: Female : 1955 Arrival Date: 11/15/2024 Time: 10:49 Bed 25 Private MD: Diagnosis: Abdominal pain, Generalized;Constipation-fecal impaction;Anemia, unspecified Presentation: 11/15 10:58 Chief complaint: Constipation, abdominal pain and distention, and nausea x 1 week. Has hb tried multiple enemas, Dulcolax, mag citrate with no relief. Coronavirus screen: At this time, the client does not indicate any symptoms associated with coronavirus-19. Ebola Screen: No symptoms or risks identified at this time. Initial Sepsis Screen: Does the patient meet any 2 criteria? No. Patient's initial sepsis screen is negative. Does the patient have a suspected source of infection? No. Patient's initial sepsis screen is negative. Risk Assessment: Do you want to hurt yourself or someone else? Patient reports no desire to harm self or others. Onset of symptoms was November 05, 2024. 10:58 Method Of Arrival: Ambulatory hb 10:58 Acuity: TRACY 3 hb Historical: - Allergies: 11:01 PENICILLINS; hb 11:01 Sulfa (Sulfonamide Antibiotics); hb - PMHx: 11:01 Depression; Chronic pain; addisons; Early Dementia; Irritable bowel syndrome; hb Hyperlipidemia; TIA; - PSHx: 11:01 Cholecystectomy; Appendectomy; endometriosis; Exploratory laparotomy; hb - Immunization history:: Adult Immunizations up to date. - Infectious Disease History:: Denies. - Social history:: Smoking status: Patient denies any tobacco usage or history of. Screenin:30 [facility] ED Fall Risk Assessment (Adult) History of falling in the last 3 months, me1 including since admission No falls in past 3 months (0 pts) Confusion or Disorientation No (0 pts) Intoxicated or Sedated No (0 pts) Impaired Gait No (0 pts) Mobility Assist Device Used No (0 pt) Altered Elimination No (0 pt) Score/Fall Risk Level 0 - 2 = Low Risk Maintained a safe environment, Provided non-skid footwear, Hourly rounding (assess needs \T\ fall precautionary measures) done. Abuse screen: Denies threats or abuse. Nutritional screening: No deficits noted. Tuberculosis screening: No symptoms or risk factors identified. Assessment: 12:30 General: Appears uncomfortable, well groomed, well developed, well nourished, Behavior me1 is calm, cooperative, appropriate for age, Reports Constipation, abdominal pain and distention, and nausea x 1 week. Has tried multiple enemas, Dulcolax, mag citrate with no relief. Pain: Complains of pain in abdomen Pain does not radiate. Pain currently is 9 out of 10 on a pain scale. Quality of pain is described as crampy, sharp, Pain began one week ago. Neuro: Level of Consciousness is awake, alert, obeys commands, Oriented to person, place, time, situation, Appropriate for age. Cardiovascular: Patient's skin is warm and dry. Respiratory: Airway is patent Respiratory effort is even, unlabored, Respiratory pattern is regular, symmetrical. GI: Abdomen is round distended, Bowel sounds Abdomen is tender to palpation X 4 quads. Reports lower abdominal pain, upper abdominal pain, bloating, constipation. : No signs and/or symptoms were reported regarding the genitourinary system. EENT: No signs and/or symptoms were reported regarding the EENT system. Derm: Skin is intact, is healthy with good turgor, Skin is pink, warm \T\ dry. Musculoskeletal: No signs and/or symptoms reported regarding the musculoskeletal system. Circulation, motion, and sensation intact. Range of motion: intact in all extremities. 12:48 Reassessment: Yashira Sheri : [phone] call when patient is ready to go or if she me1 needs something. 16:35 Reassessment: Discharge held for another suppository as patient has not had a bowel me1 movement yet. 17:33 Reassessment: No BM with 2nd suppository, Dr Pruitt informed. me1 Vital Signs: 10:58 BP 121 / 52; Pulse 88; Resp 16; Temp 98.2; Pulse Ox 100% on R/A; Weight 69.85 kg; hb Height 5 ft. 2 in. ; Pain 9/10; 13:00 BP 134 / 79; Pulse 59; Resp 16; Pulse Ox 99% ; me1 14:00 BP 134 / 89; Pulse 80; Resp 15; Pulse Ox 100% ; me1 15:00 BP 151 / 83; Pulse 78; Resp 14; Pulse Ox 100% ; me1 16:00 BP 145 / 89; Pulse 79; Resp 16; Temp 98.5; Pulse Ox 100% ; me1 17:00 BP 179 / 83; Pulse 66; Resp 18; Pulse Ox 99% ; me1 18:00 BP 163 / 87; Pulse 57; Resp 17; Pulse Ox 99% ; me1 19:19 BP 142 / 86; Pulse 94; Resp 13; Temp 98.4; Pulse Ox 93% ; me1 10:58 Body Mass Index 28.17 (69.85 kg, 157.48 cm) hb 10:58 Pain Scale: Adult hb ED Course: 10:53 Patient arrived in ED. im 11:01 Triage completed. hb 11:01 Fletcher Pruitt MD is Attending Physician. christ 11:02 Arm band placed on. hb 12:20 Jesusita Hsu, ROYAL is Primary Nurse. me1 12:23 Abdomen In Process Unspecified. EDMS 12:30 Patient has correct armband on for positive identification. Bed in low position. Call me1 light in reach. Side rails up X 1. Provided Education on: POC. Verbalized understanding.. Client placed on continuous cardiac and pulse oximetry monitoring. NIBP monitoring applied. Pulse ox on. NIBP on. 12:38 XRAY Chest (1 view) In Process Unspecified. EDMS 13:41 No provider procedures requiring assistance completed. me1 13:41 Missed attempt(s): 22 gauge in left antecubital area. me1 14:37 EKG done, by ED staff, reviewed by Fletcher Pruitt MD. me1 15:18 Inserted saline lock: 20 gauge in right EJ, using aseptic technique. ,using aseptic me1 technique. by Dr Pruitt Blood collected. Flushed with 10 mL NS. 19:31 IV discontinued, intact, bleeding controlled, No redness/swelling at site. Pressure me1 dressing applied. Administered Medications: 14:24 Drug: Dulcolax MO Suppository 10 mg MO once Route: MO; me1 14:47 Follow up: Response: No adverse reaction me1 14:24 Drug: Lactulose PO 60 grams 45 ml PO once Volume: 45 ml; Route: PO; me1 14:46 Follow up: Response: No adverse reaction me1 15:23 Drug: NS 0.9% IV 500 ml 500 ml IV at 1 bolus once; to be given as a bolus over 30 me1 minutes Volume: 500 ml; Route: IV; Rate: 1 bolus; Site: right jugular; 15:53 Follow up: Response: No adverse reaction; IV Status: Completed infusion; IV Intake: me1 500ml 15:23 Drug: NS 0.9% IV 500 ml 500 ml IV at 125 ml/hr once Volume: 500 ml; Route: IV; Rate: me1 125 ml/hr; Site: right jugular; 19:01 Follow up: Response: No adverse reaction; IV Status: Completed infusion me1 15:23 Drug: Ondansetron IVP 4 mg IVP once; over 2 minutes Route: IVP; Site: right jugular; me1 15:53 Follow up: Response: No adverse reaction; Nausea is decreased me1 16:22 Drug: Solu-CORTEF IVP 100 mg IVP once Route: IVP; Site: right jugular; me1 16:23 Follow up: Response: No adverse reaction me1 16:35 Drug: Dulcolax MO Suppository 10 mg MO once Route: MO; me1 17:32 Follow up: Response: No adverse reaction; No change in condition me1 Medication: 12:30 VIS not applicable for this client. me1 Intake: 15:53 IV: 500ml; Total: 500ml. me1 Outcome: 16:20 Discharge ordered by . [facility] 19:31 Discharged to home via wheelchair, with family, me1 19:31 Condition: stable 19:31 Discharge instructions given to patient, Instructed on discharge instructions, follow up and referral plans. medication usage, Demonstrated understanding of instructions, follow-up care, medications, Prescriptions given X 2, 19:32 Patient left the ED. me1 Signatures: Dispatcher [employer] [facility] Fletcher Pruitt MD MD cha Baxter, Heather, RN RN Mary Lou Yoder Michelle RN RN me1 Corrections: (The following items were deleted from the chart) 13:10 10:58 Chief complaint: Constipation, abdominal pain and distention, and nausea x 1 me1 week. Has tried multiple enemas, Dulcolax, mag citrate with no relief. 16:41 16:35 Reassessment: Discharge held for another suppository and PO contrast me1 me1
--- NOTE | 2024-11-15 16:20 | EDPHYS ---
Physician Documentation [facility] Name: Dulce Cerna Age: 68 yrs Sex: Female : 1955 Arrival Date: 11/15/2024 Time: 10:49 Bed 25 Private MD: ED Physician Fletcher Pruitt HPI: 11/15 15:42 This 68 yrs old Female presents to ER via Ambulatory with complaints of christ Abdominal Pain, Back Pain, Constipation. 15:42 The patient presents with pain that is chronic. christ Historical: - Allergies: 11:01 PENICILLINS; hb 11:01 Sulfa (Sulfonamide Antibiotics); hb - PMHx: 11:01 Depression; Chronic pain; addisons; Early Dementia; Irritable bowel syndrome; hb Hyperlipidemia; TIA; - PSHx: 11:01 Cholecystectomy; Appendectomy; endometriosis; Exploratory laparotomy; hb - Immunization history:: Adult Immunizations up to date. - Infectious Disease History:: Denies. - Social history:: Smoking status: Patient denies any tobacco usage or history of. ROS: 15:43 Constitutional: Negative for fever, chills, and weight loss, Eyes: Negative for injury, christ pain, redness, and discharge, ENT: Negative for injury, pain, and discharge, Neck: Negative for injury, pain, and swelling, Cardiovascular: Negative for chest pain, palpitations, and edema, Respiratory: Negative for shortness of breath, cough, wheezing, and pleuritic chest pain, Back: Negative for injury and pain, : Negative for injury, bleeding, discharge, and swelling, MS/Extremity: Negative for injury and deformity, Skin: Negative for injury, rash, and discoloration, Neuro: Negative for headache, weakness, numbness, tingling, and seizure, Psych: Negative for depression, anxiety, suicide ideation, homicidal ideation, and hallucinations, Allergy/Immunology: Negative for hives, rash, and allergies, Endocrine: Negative for neck swelling, polydipsia, polyuria, polyphagia, and marked weight changes, Hematologic/Lymphatic: Negative for swollen nodes, abnormal bleeding, and unusual bruising, 15:43 Abdomen/GI: Positive for constipation, Exam: 15:43 Constitutional: This is a well developed, well nourished patient who is awake, alert, christ and in no acute distress. Head/Face: Normocephalic, atraumatic. Eyes: Pupils equal round and reactive to light, extra-ocular motions intact. Lids and lashes normal. Conjunctiva and sclera are non-icteric and not injected. Cornea within normal limits. Periorbital areas with no swelling, redness, or edema. ENT: Nares patent. No nasal discharge, no septal abnormalities noted. Tympanic membranes are normal and external auditory canals are clear. Oropharynx with no redness, swelling, or masses, exudates, or evidence of obstruction, uvula midline. Mucous membranes moist. Neck: Trachea midline, no thyromegaly or masses palpated, and no cervical lymphadenopathy. Supple, full range of motion without nuchal rigidity, or vertebral point tenderness. No Meningismus. Chest/axilla: Normal chest wall appearance and motion. Nontender with no deformity. No lesions are appreciated. Cardiovascular: Regular rate and rhythm with a normal S1 and S2. No gallops, murmurs, or rubs. Normal PMI, no JVD. No pulse deficits. Respiratory: Lungs have equal breath sounds bilaterally, clear to auscultation and percussion. No rales, rhonchi or wheezes noted. No increased work of breathing, no retractions or nasal flaring. Back: No spinal tenderness. No costovertebral tenderness. Full range of motion. Female : Normal external genitalia. MS/ Extremity: Pulses equal, no cyanosis. Neurovascular intact. Full, normal range of motion., bilateral aka Neuro: Awake and alert, GCS 15, oriented to person, place, time, and situation. Cranial nerves II-XII grossly intact. Motor strength 5/5 in all extremities. Sensory grossly intact. Cerebellar exam normal. Normal gait. Psych: Awake, alert, with orientation to person, place and time. Behavior, mood, and affect are within normal limits. 15:43 Musculoskeletal/extremity: DVT Exam: No signs of deep vein thrombosis. no pain, no swelling, no tenderness, negative Homans' sign noted on exam, no appreciated bluish discoloration, no erythema, no increased warmth, 15:43 Skin: Appearance: Temperature: warm, Moisture: normal moisture, petechiae, not noted, ecchymosis, not noted, Vital Signs: 10:58 BP 121 / 52; Pulse 88; Resp 16; Temp 98.2; Pulse Ox 100% on R/A; Weight 69.85 kg; hb Height 5 ft. 2 in. ; Pain 9/10; 13:00 BP 134 / 79; Pulse 59; Resp 16; Pulse Ox 99% ; me1 14:00 BP 134 / 89; Pulse 80; Resp 15; Pulse Ox 100% ; me1 15:00 BP 151 / 83; Pulse 78; Resp 14; Pulse Ox 100% ; me1 16:00 BP 145 / 89; Pulse 79; Resp 16; Temp 98.5; Pulse Ox 100% ; me1 17:00 BP 179 / 83; Pulse 66; Resp 18; Pulse Ox 99% ; me1 18:00 BP 163 / 87; Pulse 57; Resp 17; Pulse Ox 99% ; me1 19:19 BP 142 / 86; Pulse 94; Resp 13; Temp 98.4; Pulse Ox 93% ; me1 10:58 Body Mass Index 28.17 (69.85 kg, 157.48 cm) hb 10:58 Pain Scale: Adult hb Procedures: 16:48 Peripheral line: by aseptic technique a peripheral line was placed in the right [facility] external jugular vein. MDM: 11:01 Medical Screening Exam initiated christ 15:44 Differential diagnosis: chronic back pain, Fracture Hydronephrosis Obesity bowel christ obstruction, diverticulitis, gastritis, gastroesophageal reflux disease, non-specific abd pain, pancreatitis, Peptic Ulcer Disease, Pyelonephritis, urinary tract infection. Data reviewed: vital signs, nurses notes, lab test result(s), radiologic studies, plain films. Consideration of Admission/Observation Escalation of care including admission/observation considered. I considered the following discharge prescriptions or medication management in the emergency department Medications were administered in the Emergency Department. See MAR. Independent interpretation of the following test(s) in the Emergency Department CT Scan: My interpretation is ct ab/pelvis. Test considered but Not performed: EKG: no ekg. Historians other than the Patient: pt well informed. Care significantly affected by the following chronic conditions: depression, dementia, ibs, addissons. 11/15 11:03 Order name: Basic Metabolic Panel; Complete Time: 16:19 [facility] 11/15 11:03 Order name: CBC with Diff; Complete Time: 16:34 [facility] 11/15 11:03 Order name: LFT's; Complete Time: 16:19 [facility] 11/15 11:03 Order name: Magnesium; Complete Time: 16:19 [facility] 11/15 11:03 Order name: NT PRO-BNP; Complete Time: 16:19 [facility] 11/15 11:03 Order name: PT-INR; Complete Time: 15:39 [facility] 11/15 11:03 Order name: Troponin HS; Complete Time: 16:19 [facility] 11/15 11:03 Order name: Lipid Profile; Complete Time: 16:19 [facility] 11/15 11:03 Order name: Urinalysis w/ reflexes; Complete Time: 16:19 [facility] 11/15 15:36 Order name: CBC Smear Scan; Complete Time: 16:34 [facility] 11/15 11:03 Order name: XRAY Chest (1 view); Complete Time: 15:39 [facility] 11/15 12:19 Order name: Abdomen ; Complete Time: 15:39 [facility] 11/15 11:03 Order name: EKG; Complete Time: 11:04 [facility] 11/15 11:03 Order name: Cardiac monitoring; Complete Time: 14:37 [facility] 11/15 11:03 Order name: EKG - Nurse/Tech; Complete Time: 14:37 [facility] 11/15 11:03 Order name: IV Saline Lock; Complete Time: 14:36 [facility] 11/15 11:03 Order name: Labs collected and sent; Complete Time: 14:36 [facility] 11/15 11:03 Order name: O2 Per Protocol; Complete Time: 14:36 [facility] 11/15 11:03 Order name: O2 Sat Monitoring; Complete Time: 14:36 [facility] Administered Medications: 14:24 Drug: Dulcolax [place] Suppository 10 mg TX once Route: TX; me1 14:47 Follow up: Response: No adverse reaction me1 14:24 Drug: Lactulose PO 60 grams 45 ml PO once Volume: 45 ml; Route: PO; me1 14:46 Follow up: Response: No adverse reaction me1 15:23 Drug: NS 0.9% IV 500 ml 500 ml IV at 1 bolus once; to be given as a bolus over 30 me1 minutes Volume: 500 ml; Route: IV; Rate: 1 bolus; Site: right jugular; 15:53 Follow up: Response: No adverse reaction; IV Status: Completed infusion; IV Intake: me1 500ml 15:23 Drug: NS 0.9% IV 500 ml 500 ml IV at 125 ml/hr once Volume: 500 ml; Route: IV; Rate: me1 125 ml/hr; Site: right jugular; 19:01 Follow up: Response: No adverse reaction; IV Status: Completed infusion me1 15:23 Drug: Ondansetron IVP 4 mg IVP once; over 2 minutes Route: IVP; Site: right jugular; me1 15:53 Follow up: Response: No adverse reaction; Nausea is decreased me1 16:22 Drug: Solu-CORTEF IVP 100 mg IVP once Route: IVP; Site: right jugular; me1 16:23 Follow up: Response: No adverse reaction me1 16:35 Drug: Dulcolax TX Suppository 10 mg TX once Route: TX; me1 17:32 Follow up: Response: No adverse reaction; No change in condition me1 Disposition Summary: 11/15/24 16:20 Discharge Ordered Notes: Location: Home christ Problem: an acute exacerbation christ Symptoms: have improved christ Condition: Stable christ Diagnosis - Abdominal pain, Generalized christ - Constipation - fecal impaction christ - Anemia, unspecified christ Followup: christ - With: Private Physician - When: 2 - 3 days - Reason: Recheck today's complaints, Continuance of care, Re-evaluation by your physician Discharge Instructions: - Discharge Summary Sheet christ - Abdominal Pain, Adult christ - Anemia christ - Constipation, Adult christ - Constipation, Adult, [place] christ - Abdominal Pain, Adult, [id number] [facility] Forms: - Medication Reconciliation Form christ - Antibiotic Education christ - Prescription Opioid Use christ - Patient Portal Instructions [facility] - Leadership Thank You Letter [facility] Prescriptions: - Dulcolax (bisacodyl) 10 mg Rectal suppository - insert 1 suppository RECTAL route every 12 hours for 5 days; 10 suppository; [facility] Refills: 0, Product Selection Permitted - Lactulose 10 gram/15 mL Oral solution - take 30 milliliters ORAL route every 12 hours; 300 milliliter; Refills: 0, [facility] Product Selection Permitted Signatures: Dispatcher [employer] Fletcher Rodriguez MD MD cha Baxter, Heather, RN RN Jesusita Hsu RN RN me1 Corrections: (The following items were deleted from the chart) 11:04 11:04 Abdomen Pelvis W Con+CT.RAD.BRZ ordered. EDMS EDMS
[2024-11-15 16:30] LABS: Platelet Estimate INCR; White Blood Cell Scan OK (OK)
[2024-11-15 16:31] LABS: Blood Morphology Comment NOT SEEN (NOT SEEN)
[2024-11-15 19:48] VITALS: BP 142/86; TEMP 98.4; O2SAT 93
== END 2024-11-15 19:32 | disposition home or self-care (01) ==
LOC: ER 10:49
DX: K56.41 Fecal impaction (principal); R10.84 Generalized abdominal pain; D64.9 Anemia, unspecified; Z88.0 Allergy status to penicillin; Z88.2 Allergy status to sulfonamides
CPT/HCPCS: 96361; 85025; 81001; 80048; 36415; 83735; 85610; 80061; 80076; 84484; 83880; 74176; 71045; 96375; 96374; 99285; J1720; J2405; J7030

== ENCOUNTER 2025-05-23 15:08 | Inpatient (IN) | payer OTHER ==
--- OUTSIDE RECORDS SUMMARY | 2025-05-23 15:23 | XMS REPORT | Continuity of Care Document ---
Author Name Unknown Address [address] [facility] [place] [address] [facility] [place] Address [address] [facility] [place] [address] Care Team Providers Care Asic Verification Engineer Name Role Phone Josie Hilario Primary Care Physician [phone] Gavin Howe Attending Clinician Unavailable KARINA WHIPPLE Attending Clinician Unavailable KARINA WHIPPLE Attending Clinician Unavailable Lizbeth Cardenas MD Attending Clinician [phone] Jolanta Lee MD Attending Clinician [phone] Radiology Attending Clinician Unavailable RADIOLOGY Attending Clinician Unavailable LIZBETH CARDENAS Attending Clinician Unavailable Lab, Ang - Db Attending Clinician Unavailable Lizbeth Cardenas MD Attending Clinician [phone] Jolanta Lee MD Attending Clinician [phone] JOLANTA LEE Attending Clinician Unavailable JERONIMO MANZANO Attending Clinician Unavailable Lab, Ang - Db Attending Clinician Unavailable Radiology Attending Clinician Unavailable Doctor Unassigned, [place] Attending Clinician Ирина Carlos Attending Clinician [phone] ИРИНА ORTIZ Attending Clinician Unavailable VIKKI DONATO Attending Clinician Unavaildora Donato MD, Vikki Moon Attending Clinician [phone], [facility] Attending Clinician Unavailable Unknown, Attending Attending Clinician Unavailab CARLITA Fajardo Attending Clinician Unavailable Jeanne TREADWELL, Jesus Jolly Attending Clinician [phone] JESUS NEWMAN Attending Clinician Unavaildora Mcdonnell MD, Marychuy Ferreira Attending Clinician Unakori Irizarry RD, Joyce Attending Clinician [phone] Physician, No Primary or Family Admitting Clinic agus Unavailable Gavin Howe Admitting Clinician Unavailable JOSIE HILARIO Admitting Clinician Unavailable ИРИНА ORTIZ Admitting Clinician Unavailable Payers Payer Name Policy Type Policy Number Effective Date Expirati on Date Source [facility] MEDIC[facility] ADVANTAGE [id number] 2021 00:00:00 2024 00:00:00 [facility] MEDICARE COMPLETE CHOICE [id number] 2019 00:00:00 Problems Condition Name Condition Details Condition Category Status Onset Date Resolution Date Last Treatment Date Treating Clinician Comments Source Age-relate d osteoporos is without current pathologic al fracture Age-relate d osteoporos is without current pathologic al fracture Disease Active 07-01 00:00: 00 [facility] Subclinica l hypothyroi dism Subclinica l hypothyroi dism Disease Active 07-01 00:00: 00 [facility] Prediabete s Prediabete s Disease Active 07-01 00:00: 00 [facility] 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 01-11 00:00: 00 [facility] Chest pain Chest pain Disease Active 01-11 00:00: 00 [facility] Obesity (BMI 30-39.9) Obesity (BMI 30-39.9) Disease Active 2018-0 2-19 00:00: 00 [facility] 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 Disease Active 06-09 00:00: 00 [facility] Abnormal thyroid blood test Abnormal thyroid blood test Disease Active 06-09 00:00: 00 [facility] Bruce disease Wells disease Disease Active 06-09 00:00: 00 [facility] Allergies, Adverse Reactions, Alerts Allergy Name Allergy Type Status Severity Reaction(s) Onset Date Inactive Date Treating Clinician Comments Source No Known Allergie s DA Active U 08-08 00:00: 00 [facility] Penicill ins Propensi ty to adverse reaction s Active Anaphylaxis 2006-11 00:00: 00 [facility] Sulfa (Sulfona mide Antibiot ics) Propensi ty to adverse reaction s Active Anaphylaxis 2006-11 00:00: 00 [facility] Penicill ins Propensi ty to adverse reaction s Active Anaphylaxis 2006-11 00:00: 00 [facility] PENICILL INS Drug Class Active Anaphylaxis 2006-11 00:00: 00 [facility] SULFA (SULFONA MIDE ANTIBIOT ICS) Drug Class Active Anaphylaxis 2006-11 00:00: 00 [facility] Penicill ins Propensi ty to adverse reaction s Active Anaphylaxis 2006-11 00:00: 00 [facility] Penicill ins Propensi ty to adverse reaction s Active Anaphylaxis 2006-11 00:00: 00 [facility] Social History Social Habit Start Date Stop Date Quantity Comments Source History of tobacco use Current smoker [facility] Not [facility] Alcoholic beverage intake 2023-09-29 00:00:00 2023-09-29 00:00:00 Lifetime non-drinker (finding) [facility] Alcohol intake 2023-09-29 00:00:00 2023-09-29 00:00:00 Lifetime non-drinker (finding) [facility] History of Social function 2023-09-08 00:00:00 2023-09-08 00:00:00 [facility] Exposure to SARS-CoV-2 (event) 2023-03-16 00:00:00 2023-03-26 11:31:00 Not sure [facility] Tobacco use and exposure 2021-05-03 00:00:00 2021-05-03 00:00:00 Smokeless tobacco non-user [facility] Sex assigned at 1955 00:00:00 1955 00:00:00 [facility] Smoking Status Start Date Stop Date Source Ex-smoker 2021-05-03 00:00:00 2021[facility] Ordered [facility]ication Name Filled Medication Name Start Date Stop Date Current Medication? Ordering Clinician Indication Dosage Frequency Signature (SIG) Comments Components Source levothyroxi ne 25 mcg tablet 04-26 00:00: 00 Yes [id number] 25ug TAKE 1 TABLET BY MOUTH EVERY MORNING [facility] FLUDROCORTI SONE 0.1 mg tablet 03-23 00:00: 00 Yes [id number] .1mg TAKE 1 TABLET BY MOUTH IN THE MORNING [facility] alendronate 70 mg tablet 03-08 00:00: 00 Yes [id number] 70mg Take 1 tablet by mouth weekly. [facility] hydrocortis one 10 mg tablet 03-08 00:00: 00 Yes [id number] TAKE 1.5 TABLETS BY MOUTH EVERY MORNING AND 1/2 TABLET AT 2 PM EVERY DAY AND TAKE AN EXTRA TABLET ON SICK DAYS [facility] levothyroxi ne 25 mcg tablet 16 00:00: 00 04-26 00:00 :00 No [id number] 25ug Take 1 tablet by mouth every morning. [facility] fludrocorti sone 0.1 mg tablet 16 00:00: 00 03-23 00:00 :00 No [id number] .1mg Take 1 tablet by mouth in the morning. [facility] levothyroxi ne 25 mcg tablet - 00:00: 00 03-08 00:00 :00 No [id number] 25ug TAKE 1 TABLET BY MOUTH EVERY MORNING [facility] LINZESS 290 mcg Cap 2022-11 00:00: 00 Yes [id number] 290ug TAKE 1 CAPSULE BY MOUTH IN THE MORNING [facility] BABY ASPIRIN ORAL 2022-11 13:10: 10 Yes 81mg Take 81 mg by mouth. [facility] rosuvastati n 10 mg tablet 2022-11 13:10: 10 Yes 10mg Take 1 tablet by mouth at bedtime. [facility] DULoxetine 60 mg capsule 2022-11 13:10: 10 Yes 60mg Take 1 capsule by mouth in the morning. [facility] estradiol 2 mg tablet 2022-11 13:10: 10 Yes 2mg Take 1 tablet by mouth in the morning. [facility] melatonin 10 mg Tab 2022-11 13:10: 10 Yes 10mg Take 10 mg by mouth. [facility] clonazePAM 2 mg tablet 2022-11 13:10: 10 Yes 2mg Take 1 tablet by mouth in the morning and 1 tablet at noon and 1 tablet in the evening. [facility] benzonatate (TESSALON PERLES) 100 mg capsule 2022-11 00:00: 00 Yes [id number] Take 1-2 capsules three times a day as needed for cough. [facility] promethazin e-dextromet horphan 6.25-15 mg/5 mL syrup 2022-11 00:00: 00 Yes [id number] 5mL Take 5 mL by mouth 4 (four) times daily as needed for Cough. [facility] linaCLOtide (LINZESS) 290 mcg Cap 2022-11 00:00: 00 10-30 00:00 :00 No [id number] 290ug Take 1 capsule by mouth in the morning. [facility] alendronate 70 mg tablet 2022-11 00:00: 00 03-08 00:00 :00 No [id number] 70mg Take 1 tablet by mouth weekly. [facility] fludrocorti sone 0.1 mg tablet 2022-11 0-17 00:00: 00 03-08 00:00 :00 No [id number] .1mg Take 1 tablet by mouth in the morning. [facility] hydrocortis one 10 mg tablet 2022-11 017 00:00: 00 03-08 00:00 :00 No [id number] TAKE 1.5 TABLETS BY MOUTH EVERY MORNING AND 1/2 TABLET AT 2 PM EVERY DAY AND TAKE AN EXTRA TABLET ON SICK DAYS [facility] levothyroxi ne 25 mcg tablet 2022-11 0 00:00: 00 02-21 00:00 :00 No [id number] 25ug Take 1 tablet by mouth every morning. [facility] hydrocortis one 10 mg tablet 0 7-31 00:00: 00 09-08 00:00 :00 No [id number] TAKE 1.5 TABLETS BY MOUTH EVERY MORNING AND 1/2 TABLET AT 2 PM EVERY DAY AND TAKE AN EXTRA TABLET ON SICK DAYS [facility] ALENDRONATE 70 mg tablet 6-17 00:00: 00 09-08 00:00 :00 No [id number] 70mg TAKE 1 TABLET BY MOUTH WEEKLY [facility] FLUDROCORTI SONE 0.1 mg tablet 0 5-04 00:00: 00 09-08 00:00 :00 No [id number] .1mg TAKE 1 TABLET BY MOUTH IN THE MORNING [facility] LEVOTHYROXI NE 25 mcg tablet 0 5-04 00:00: 00 09-08 00:00 :00 No [id number] 25ug TAKE 1 TABLET BY MOUTH EVERY MORNING [facility] alendronate 70 mg tablet 0 4-26 00:00: 00 05-09 00:00 :00 No [id number] 70mg TAKE 1 TABLET BY MOUTH WEEKLY [facility] hydrocortis one 10 mg tablet 2022-0 4-03 00:00: 00 06-22 00:00 :00 No [id number] TAKE 1.5 TABLETS BY MOUTH EVERY MORNING AND 1/2 TABLET AT 2 PM EVERY DAY AND TAKE AN EXTRA TABLET ON SICK DAYS [facility] hydrocortis one 10 mg tablet 2021-11 00:00: 00 02-23 00:00 :00 No [id number] TAKE 1.5 TABLETS BY MOUTH EVERY MORNING AND 1/2 TABLET AT 2 PM EVERY DAY AND TAKE AN EXTRA TABLET ON SICK DAYS [facility] LEVOTHYROXI NE 25 mcg tablet 2021-11 00:00: 00 03-26 00:00 :00 No [id number] 25ug TAKE 1 TABLET BY MOUTH EVERY MORNING [facility] fludrocorti sone 0.1 mg tablet 07-01 00:00: 00 03-26 00:00 :00 No [id number] .1mg Take 1 tablet by mouth in the morning. [facility] alendronate 70 mg tablet 07-01 00:00: 00 03-18 00:00 :00 No [id number] 70mg Take 1 tablet by mouth weekly. [facility] fludrocorti sone 0.1 mg tablet 07-01 00:00: 00 07-01 00:00 :00 No [id number] .2mg Take 2 tablets by mouth in the morning. [facility] LEVOTHYROXI NE 25 mcg tablet 18 00:00: 00 10-20 00:00 :00 No [id number] 25ug TAKE 1 TABLET BY MOUTH EVERY MORNING [facility] hydrocortis one 10 mg tablet 05-04 00:00: 00 11-02 00:00 :00 No [id number] TAKE 2 TABLETS BY MOUTH EVERY MORNING AND 1 TABLET AT 2 PM EVERY DAY AND TAKE AN EXTRA TABLET ON SICK DAYS [facility] OZEMPIC 0.25 mg or 0.5 mg(2 mg/1.5 mL) PnIj 04-14 00:00: 00 Yes [facility] ARIPiprazol e 2 mg tablet 04-14 00:00: 00 Yes [facility] LINZESS 145 mcg capsule 04-14 00:00: 00 09-29 00:00 :00 No [facility] rosuvastati n 10 mg tablet 2020-11 10:28: 48 Yes 10mg Take 1 tablet by mouth at bedtime. [facility] melatonin 10 mg Tab 2020-11 10:28: 00 Yes 10mg Take 10 mg by mouth. [facility] DULoxetine 60 mg capsule 2020-11 10:27: 59 Yes 60mg Take 1 capsule by mouth in the morning. [facility] estradiol 2 mg tablet 2020-11 10:27: 59 Yes 2mg Take 1 tablet by mouth in the morning. [facility] BABY ASPIRIN ORAL 2020-11 10:27: 58 Yes 81mg Take 81 mg by mouth. [facility] clonazePAM 2 mg tablet 2020-11 10:27: 58 Yes 2mg Take 1 tablet by mouth in the morning and 1 tablet at noon and 1 tablet in the evening. [facility] metoprolol tartrate 37.5 mg Tab 2020-11 00:00: 00 Yes 37.5mg Take 37.5 mg by mouth daily. [facility] ALENDRONATE 70 mg tablet 2020-11 00:00: 00 07-01 00:00 :00 No [id number] 70mg TAKE 1 TABLET BY MOUTH WEEKLY [facility] levothyroxi ne 25 mcg tablet 2018-11 00:00: 00 03-26 00:00 :00 No [id number] 25ug Take 1 tablet by mouth every morning. [facility] hydrocortis one 10 mg tablet 07-26 00:00: 00 06-15 00:00 :00 No [id number] TAKE TWO TABLETS BY MOUTH IN THE MORNING AND ONE TABLET AT 2:00PM, take extra on sick days [facility] tiZANidine 2 mg tablet 06-10 00:00: 00 02-05 00:00 :00 No [facility] azithromyci n 250 mg tablet 01-12 00:00: 00 05-03 00:00 :00 No One tablet once daily [facility] Oxycodone 10 mg Tab 08 00:00: 00 Yes [facility] zaleplon 5 mg capsule 12-03 00:00: 00 Yes [facility] fludrocorti sone 0.1 mg tablet 06-09 00:00: 00 02-05 00:00 :00 No [id number] One tablet three times a week [facility] proMETHazin e 25 mg tablet 06-04 00:00: 00 05-03 00:00 :00 No 25mg Take 25 mg by mouth every 6 (six) hours. [facility] amitriptyli ne 100 mg tablet 05-23 00:00: 00 Yes 200mg Take 2 tablets by mouth at bedtime. [facility] cyclobenzap rine 10 mg tablet 05-23 00:00: 00 05-03 00:00 :00 No 10mg Take 10 mg by mouth as needed. [facility] omeprazole 20 mg capsule 15 00:00: 00 Yes 20mg Take 1 capsule by mouth in the morning. [facility] ALPRAZolam 1 mg tablet 03-17 00:00: 00 Yes 1mg Take 1 tablet by mouth in the morning. [facility] Immunizations Ordered Immunization Name Filled Immunization Name Date Status Comments Source Influenza Virus Vaccine Quad IM 3+ YRS 2024-03-08 13:00:00 Completed [facility] SARS-COV-2 COVID-19 PFIZER VACCINE 2024-03-08 13:00:00 Completed [facility] Influenza Virus Vaccine Quad IM 3+ YRS 2024-02-22 00:00:00 Completed [facility] SARS-COV-2 COVID-19 PFIZER VACCINE 2024-02-22 00:00:00 Completed [facility] Influenza Virus Vaccine Quad IM 3+ YRS 2023-10-30 00:00:00 Completed [facility] SARS-COV-2 COVID-19 PFIZER VACCINE 2023-10-30 00:00:00 Completed [facility] Influenza Virus Vaccine Quad IM 3+ YRS 2023-10-30 00:00:00 Completed [facility] SARS-COV-2 COVID-19 PFIZER VACCINE 2023-10-30 00:00:00 Completed [facility] Influenza Virus Vaccine Quad IM 3+ YRS 2023-09-29 13:43:28 Completed [facility] SARS-COV-2 COVID-19 PFIZER VACCINE 2023-09-29 13:43:28 Completed [facility] Influenza Virus Vaccine Quad IM 3+ YRS 2023-09-29 13:00:00 Completed [facility] SARS-COV-2 COVID-19 PFIZER VACCINE 2023-09-29 13:00:00 Completed [facility] Influenza Virus Vaccine Quad IM 3+ YRS 2023-09-08 10:00:00 Completed [facility] SARS-COV-2 COVID-19 PFIZER VACCINE 2023-09-08 10:00:00 Completed [facility] Influenza Virus Vaccine Quad IM 3+ YRS 2023-09-08 09:00:00 Completed [facility] SARS-COV-2 COVID-19 PFIZER VACCINE 2023-09-08 09:00:00 Completed [facility] SARS-COV-2 COVID-19 PFIZER VACCINE 2021-02-04 00:00:00 Completed [facility] SARS-COV-2 COVID-19 PFIZER VACCINE 2021-02-04 00:00:00 Completed [facility] SARS-COV-2 COVID-19 PFIZER VACCINE 2021-02-04 00:00:00 Completed [facility] SARS-COV-2 COVID-19 PFIZER VACCINE 2021-02-04 00:00:00 Completed [facility] SARS-COV-2 COVID-19 PFIZER VACCINE 2021-02-04 00:00:00 Completed [facility] SARS-COV-2 COVID-19 PFIZER VACCINE 2021-02-04 00:00:00 Completed [facility] SARS-COV-2 COVID-19 PFIZER VACCINE 2021-02-04 00:00:00 Completed [facility] SARS-COV-2 COVID-19 PFIZER VACCINE 2021-02-04 00:00:00 Completed [facility] SARS-COV-2 COVID-19 PFIZER VACCINE 2021-02-04 00:00:00 Completed [facility] SARS-COV-2 COVID-19 PFIZER VACCINE 2021-02-04 00:00:00 Completed [facility] SARS-COV-2 COVID-19 PFIZER VACCINE 2021-02-04 00:00:00 Completed [facility] SARS-COV-2 COVID-19 PFIZER VACCINE 2021-02-04 00:00:00 Completed [facility] SARS-COV-2 COVID-19 PFIZER VACCINE 2021-02-04 00:00:00 Completed [facility] SARS-COV-2 COVID-19 PFIZER VACCINE 2021-02-04 00:00:00 Completed [facility] SARS-COV-2 COVID-19 PFIZER VACCINE 2021-02-04 00:00:00 Completed [facility] SARS-COV-2 COVID-19 PFIZER VACCINE 2021-01-14 00:00:00 Completed [facility] SARS-COV-2 COVID-19 PFIZER VACCINE 2021-01-14 00:00:00 Completed [facility] SARS-COV-2 COVID-19 PFIZER VACCINE 2021-01-14 00:00:00 Completed [facility] SARS-COV-2 COVID-19 PFIZER VACCINE 2021-01-14 00:00:00 Completed [facility] SARS-COV-2 COVID-19 PFIZER VACCINE 2021-01-14 00:00:00 Completed [facility] SARS-COV-2 COVID-19 PFIZER VACCINE 2021-01-14 00:00:00 Completed [facility] SARS-COV-2 COVID-19 PFIZER VACCINE 2021-01-14 00:00:00 Completed [facility] SARS-COV-2 COVID-19 PFIZER VACCINE 2021-01-14 00:00:00 Completed [facility] SARS-COV-2 COVID-19 PFIZER VACCINE 2021-01-14 00:00:00 Completed [facility] SARS-COV-2 COVID-19 PFIZER VACCINE 2021-01-14 00:00:00 Completed [facility] SARS-COV-2 COVID-19 PFIZER VACCINE 2021-01-14 00:00:00 Completed [facility] SARS-COV-2 COVID-19 PFIZER VACCINE 2021-01-14 00:00:00 Completed [facility] SARS-COV-2 COVID-19 PFIZER VACCINE 2021-01-14 00:00:00 Completed [facility] SARS-COV-2 COVID-19 PFIZER VACCINE 2021-01-14 00:00:00 Completed [facility] SARS-COV-2 COVID-19 PFIZER VACCINE 2021-01-14 00:00:00 Completed [facility] Influenza Virus Vaccine Quad IM 3+ YRS 2018-01-12 00:00:00 Completed [facility] Influenza Virus Vaccine Quad IM 3+ YRS 2018-01-12 00:00:00 Completed [facility] Influenza Virus Vaccine Quad IM 3+ YRS 2018-01-12 00:00:00 Completed [facility] Influenza Virus Vaccine Quad IM 3+ YRS 2018-01-12 00:00:00 Completed [facility] Influenza Virus Vaccine Quad IM 3+ YRS 2018-01-12 00:00:00 Completed [facility] Influenza Virus Vaccine Quad IM 3+ YRS 2018-01-12 00:00:00 Completed [facility] Influenza Virus Vaccine Quad IM 3+ YRS 2018-01-12 00:00:00 Completed [facility] Influenza Virus Vaccine Quad IM 3+ YRS 2018-01-12 00:00:00 Completed [facility] Influenza Virus Vaccine Quad IM 3+ YRS 2018-01-12 00:00:00 Completed [facility] Influenza Virus Vaccine Quad IM 3+ YRS 2018-01-12 00:00:00 Completed [facility] Influenza Virus Vaccine Quad IM 3+ YRS 2018-01-12 00:00:00 Completed [facility] Influenza Virus Vaccine Quad IM 3+ YRS 2018-01-12 00:00:00 Completed [facility] Influenza Virus Vaccine Quad IM 3+ YRS 2018-01-12 00:00:00 Completed [facility] Influenza Virus Vaccine Quad IM 3+ YRS 2018-01-12 00:00:00 Completed [facility] Influenza Virus Vaccine Quad IM 3+ YRS 2018-01-12 00:00:00 Completed [facility] Vital Signs Vital Name Observation Time Observation Value Comments S ource Systolic blood pressure 2024-09-20 16:49:00 135 [facility]Hg[facility] Di[facility] blood [facility] 2024-09-20 16:49:00 88 mm[Hg[facility] Heart rate 2024-09-20 16:49:00 95 /min [facility] Respiratory rate 2024-09-20 16:49:00 18 /min [facility] Body height 2024-09-20 16:49:00 157.5 cm [facility] Body weight 2024-09-20 16:49:00 72.32 kg [facility] BMI 2024-09-20 16:49:00 29.16 kg/m2 [facility] Oxygen saturation in Arterial blood by Pulse oximetry 2024-09-20 16:49:00 96 /min [facility] Systolic blood pressure 2024-03-08 17:57:00 150 mm[Hg[facility] Diastolic blood pressure 2024-03-08 17:57:00 84 mm[Hg[facility] Body height 2024-03-08 17:47:00 157.5 cm [facility] Body weight 2024-03-08 17:47:00 74.617 kg [facility] BMI 2024-03-08 17:47:00 30.09 kg/m2 [facility] Systolic blood pressure 2023-09-29 19:09:00 136 mm[Hg[facility] Diastolic blood pressure 2023-09-29 19:09:00 70 mm[Hg[facility] Heart rate 2023-09-29 19:09:00 66 /min [facility] Body temperature 2023-09-29 19:09:00 36.5 Harriet [facility] Body height 2023-09-29 19:09:00 157.5 cm [facility] Body weight 2023-09-29 19:09:00 75.342 kg [facility] BMI 2023-09-29 19:09:00 30.38 kg/m2 [facility] Oxygen saturation in Arterial blood by Pulse oximetry 2023-09-29 19:09:00 97 /min [facility] Systolic blood pressure 2023-09-08 14:13:00 141 mm[Hg[facility] Diastolic blood pressure 2023-09-08 14:13:00 84 mm[Hg] [facility] Heart rate 2023-09-08 14:13:00 82 /min [facility] Body height 2023-09-08 14:13:00 157.5 cm [facility] Body weight 2023-09-08 14:13:00 77.52 kg [facility] BMI 2023-09-08 14:13:00 31.26 kg/m2 [facility] Oxygen saturation in Arterial blood by Pulse oximetry 2023-09-08 14:13:00 95 /min [facility] Systolic blood pressure 2022-07-01 15:16:00 139 mm[Hg] [facility] Diastolic blood pressure 2022-07-01 15:16:00 65 mm[Hg] [facility] Heart rate 2022-07-01 15:16:00 82 /min [facility] Body height 2022-07-01 15:16:00 157.5 cm [facility] Body weight 2022-07-01 15:16:00 81.874 kg [facility] BMI 2022-07-01 15:16:00 33.01 kg/m2 [facility] Oxygen saturation in Arterial blood by Pulse oximetry 2022-07-01 15:16:00 94 /min [facility] Procedures Procedure Date / Time Performed Performing Clinician Source DEXA AXIAL (HIP AND SPINE) 2025-03-03 20:16:01 Barbara Webster [facility] POCT HEMOGLOBIN A1C TEST 2024-09-20 16:54:00 Mehul Cardenas [facility] [id number] 2024-08-10 00:00:00 RAMYA CHARLES [facility] POCT HEMOGLOBIN A1C TEST 2024-03-08 17:58:00 Mehul Cardenas [facility] ASSIGNMENT OF BENEFITS 2023-03-26 16:20:55 Docto r Unassigned, [place] [facility] PATIENT QUESTIONNAIRE 2022-07-01 05:01:00 Doctor Unassigned, [place] [facility] Encounters Start Date/Time End Date/Time Encounter Type Admission Type Attending [facility] Care Facility Care Department Encounter ID Source 2024-06-28 10:00:00 Inpatient Gavin Shaikh [facility]D [id number] [facility] 2022-06-17 16:29:12 Outpatient [facility] [id number] [facility] 2022-06-05 09:43:10 Outpatient [facility] [id number] [facility] 2022-03-01 21:32:02 Outpatient [facility] [id number] [facility] 2025-04-25 00:00:00 2025-04-26 09:01:52 Refill Nadir [facility] BU[facility] 1.2.840.114 350.1.13.10 4.2.7.2.686 [id number] 220 [id number] [facility] 2025-03-23 00:00:00 2025-03-23 14:56:20 Refill Nadir [facility] 1.2.840.114 350.1.13.10 4.2.7.2.686 [id number] 220 [id number] [facility] 2020-02-25 00:00:00 2025-03-16 21:59:43 [facility] 1.2.840.114 350.1.13.10 4.2.7.2.686 [id number] 220 [id number] [facility] 2023-12-04 00:00:00 2025-03-16 21:12:34 [facility] 1..840.114 350.1.13.10 4.2.7.2.686 [id number] [facility] 2025-03-03 14:36:15 2025-03-03 23:59:00 Hospital Encounter Radiology Radiology [facility] 1.2.840.114 350.1.13.10 4.2.7.2.686 [id number] 800 [id number] [facility] 2025-03-03 14:33:37 2025-03-03 14:35:00 Outpatient R RADIOLOGY [facility] [id number] [facility] 2025-03-03 14:33:37 2025-03-03 14:35:00 Hospital Encounter Radiology Radiology [facility] 1..840.114 350.1.13.10 4.2.7.2.686 [id number] 800 [id number] [facility] 2025-02-17 00:00:00 2025-02-17 00:00:00 Outpatient R RADIOLOGY [facility] [id number] [facility] 2024-10-06 00:00:00 2024-10-06 15:00:01 Telephone Lizbeth Cardenas [facility] OFF[facility] BUILDING 1..840.114 350.1.13.10 4.2.7.2.686 [id number] 220 [id number] [facility] 2024-10-06 00:00:00 2024-10-06 00:00:00 Outpatient R LIZBETH CARDENAS [facility] [id number] [facility] 2024-09-30 00:00:00 2024-09-30 00:00:00 Outpatient R LIZBETH CARDENAS [facility] [id number] [facility] 2024-09-20 13:00:00 2024-09-20 13:15:00 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, Lizbeth Vargas Lab, Jin Perez [facility] OFF[facility] BUILDING 1.284114 350.1.13.10 4.2.7.2.686 [id number] 353 [id number] [facility] 2024-09-20 12:00:00 2024-09-20 12:58:42 Outpatient R NADIR [facility] [id number] [facility] 2024-09-20 12:00:00 2024-09-20 12:58:42 Office Visit Nadir [facility] CULLEN?J[facility]SEE [facility] MED[facility] OFFICE BUILDING 1.84114 350.1.13.10 4.2.7.2.686 [id number] 220 [id number] [facility] 2024-08-10 12:28:00 2024-08-10 21:30:00 Inpatient Gavin Shaikh [facility] INTE.02 [id number] 89 [facility] 2024-03-08 13:00:00 2024-03-08 13:32:57 Outpatient R NADIR [facility] [id number] [facility] 2024-03-08 13:00:00 2024-03-08 13:32:57 Office Visit Nadir [facility] CULLEN?[facility] OFF[facility] BUILDING 1.114 350.1.13.10 4.2.7.2.686 [id number] 220 [id number] [facility] 2024-02-22 00:00:00 2024-02-22 00:00:00 Refill Nadir [facility] CULLEN?J[facility]SEE [facility] OFF[facility] BUILDING 1.84.114 350.1.13.10 4.2.7.2.686 [id number] 220 [id number] [facility] 2023-10-30 00:00:00 2023-10-30 00:00:00 Refill Malcom[facility] CULLEN?[facility]SEE [facility] OFFICE BUILDING 1.84114 350.1.13.10 4.2.7.2.686 [id number] [id number] [facility] 2023-10-30 00:00:00 2023-10-30 00:00:00 [facility] BU[facility] 1.2.840.114 350.1.13.10 4.2.7.2.686 [id number] [id number] [facility] 2023-09-29 13:43:28 2023-09-29 23:59:00 [facility] [id number] [facility] 2023-09-29 13:43:28 2023-09-29 23:59:00 Hospital [facility] OFF[facility] BUILD[facility] 1.2.840.114 350.1.13.10 4.2.7.2.686 [id number] [facility] 2023-09-29 13:00:00 2023-09-29 13:43:18 [facility] OFF[facility] BUILDING 1.2.840.114 350.1.13.10 4.2.7.2.686 [id number] [facility] 2023-09-18 13:00:00 2023-09-18 13:00:00 Outpatient R JERONIMO MANZANO [facility] [id number] [facility] 2023-09-08 10:00:00 2023-09-08 10:15:00 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, Jin Cardenas [facility] MED[facility] OFFICE BUILDING 1.2.840.114 350.1.13.10 4.2.7.2.686 [id number] 353 [id number] [facility] 2023-09-08 09:00:00 2023-09-08 09:55:46 Outpatient R LIZBETH CARDENAS [facility] [id number] [facility] 2023-09-08 09:00:00 2023-09-08 09:55:46 Office Visit Nadir [facility] CULLEN?JESSEE [facility] MED[facility] OFFICE BUILDING 1.2840.114 350.1.13.10 4.2.7.2.686 [id number] 220 [id number] [facility] 2023-06-22 00:00:00 2023-06-22 00:00:00 Telephone Nadir [facility] CULLEN?[facility]ESSEE [facility] MED[facility] OFFICE BUILDING 1.2840.114 350.1.13.10 4.2.7.2.686 [id number] 220 [id number] [facility] 2023-05-08 00:00:00 2023-05-08 00:00:00 [facility] OFFICE BUILDING 1.2840.114 350.1.13.10 4.2.7.2.686 [id number] 220 [id number] [facility] 2023-03-26 11:31:37 2023-03-26 23:59:00 Outpatient R RADIOLOGY [facility] [id number] [facility] 2023-03-26 11:20:00 2023-03-26 23:59:[address] [facility] 1.2840.114 350.1.13.10 4.2.7.2.686 [id number] 800 [id number] [facility] 2023-03-26 00:00:00 2023-03-26 00:00:00 Orders Only Doctor Unassigned, [place] [employer] [facility] 1.2840.114 350.1.13.10 4.2.7.2.686 [id number] [facility] 2023-03-26 00:00:00 2023-03-26 00:00:00 Refill Nadir [facility] OFFICE BUILDING 1.2840.114 350.1.13.10 4.2.7.2.686 [id number] 220 [id number] [facility] 2023-03-18 00:00:00 2023-03-18 00:00:00 Refill Nadir [facility]EN?[facility]SEE [facility] MEDICAL OFFICE BUILDING 1.2.840.114 350.1.13.10 4.2.7.2.686 [id number] 220 [id number] [facility] 2023-02-25 00:00:00 2023-02-25 00:00:00 Telephone Nadir [facility]EN?[facility] OFFICE BUILDING 1..840.114 350.1.13.10 4.2.7.2.686 [id number] 220 [id number] [facility] 2023-02-23 00:00:00 2023-02-23 00:00:00 Telephone Nadir [facility] OFFICE BUILDING 1..840.114 350.1.13.10 4.2.7.2.686 [id number] 220 [id number] [facility] 2023-02-14 00:00:00 2023-02-14 00:00:00 Refill Nadir [facility]EN?[facility] OFFICE BUILDING 1.2.840.114 350.1.13.10 4.2.7.2.686 [id number] 220 [id number] [facility] 2023-01-06 10:00:00 2023-01-06 10:00:00 Outpatient R NADIR [facility] [id number] [facility] 2022-11-02 00:00:00 2022-11-02 00:00:00 Refhemalatha Ирина Ortiz [facility]EN?[facility] OFFICE BUILDING 1.2.840.114 350.1.13.10 4.2.7.2.686 [id number] 220 [id number] [facility] 2022-10-20 00:00:2022-10-20 00:00:00 [facility] OFF[facility] BUILD[facility] 1.2.840.114 350.1.13.10 4.2.7.2.686 [id number] 220 [id number] [facility] 2022-07-15 00:00:00 2022-07-15 00:00:00 Telephone Nadir [facility]EN?[facility] 1.2.840.114 350.1.13.10 4.2.7.2.686 [id number] 220 [id number] [facility] 2022-07-01 11:45:00 2022-07-01 12:00:00 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, Jin - Chris [facility] 1.2.840.114 350.1.13.10 4.2.7.2.686 [id number] 353 [id number] [facility] 2022-07-01 10:30:00 2022-07-01 11:40:18 Outpatient R NADIR [facility] [id number] [facility] 2022-07-01 10:30:00 2022-07-01 11:40:18 Office Visit Nadir [facility] 1.2.840.114 350.1.13.10 4.2.7.2.686 [id number] 220 [id number] [facility] 2022-07-01 00:00:00 2022-07-01 00:00:00 Orders Only Doctor Unassigned, [place] [employer] [facility] 1.2840.114 350.1.13.10 4.2.7.2.686 [id number] [id number] [facility] 2022-06-06 11:30:00 2022-06-06 11:30:00 [facility] [id number] 2022-05-10 00:00:00 2022-05-10 00:00:00 Layla Ortiz [facility]EN?[facility] 1.2.840.114 350.1.13.10 4.2.7.2.686 [id number] 220 [id number] [facility] 2022-05-03 00:00:00 2022-05-03 00:00:00 Layla Ortiz [facility] C[facility]EN?[facility] 1.2.840.114 350.1.13.10 4.2.7.2.686 [id number] 220 [id number] [facility] 2022-04-15 14:00:00 2022-04-15 14:00:00 Outpatient R VIKKI DONATO [facility] [id number] [facility] 2022-04-10 12:07:29 2022-04-10 23:59:00 Hospital Encounter Vikki Donato [facility] 1..840.114 350.1.13.10 4.2.7.2.686 [id number] 800 [id number] [facility] 2022-04-10 12:03:57 2022-04-10 12:06:00 Outpatient R VIKKI DONATO [facility] [id number] [facility] 2022-04-10 12:03:57 2022-04-10 12:06:00 Hospital Encounter Vikki Donato [facility] 1..840.114 350.1.13.10 4.2.7.2.686 [id number] 800 [id number] [facility] 2022-04-01 13:45:00 2022-04-01 13:45:00 Outpatient R VIKKI DONATO [facility] [id number] [facility] 2022-03-25 10:33:57 2022-03-25 23:59:00 Hospital Encounter Vikki Donato [facility] 1.2840.114 350.1.13.10 4.2.7.2.686 [id number] 800 [id number] [facility] 2022-03-25 11:13:52 2022-03-25 10:32:00 Outpatient VIKKI MENDES [facility] [id number] [facility] 2022-03-25 10:30:00 2022-03-25 10:32:00 Hospital Encounter Vikki Donato [facility] 1.840.114 350.1.13.10 4.2.7.2.686 [id number] 800 [id number] [facility] 2022-03-13 00:00:00 2022-03-13 00:00:00 Orders Only Doctor Unassigned, [place] [facility] 1.840.114 350.1.13.10 4.2.7.2.686 [id number] [facility] 2022-03-06 09:45:00 2022-03-06 10:00:00 Signs And Displays Salesperson Visit 2, Adc Lab Unknown, Attending [facility] 1.20.114 350.1.13.10 4.2.7.2.686 [id number] [facility] 2022-03-06 09:45:00 2022-03-06 09:45:00 Outpatient JERONIMO ROME [facility] [id number] [facility] 2022-03-06 09:45:00 2022-03-06 09:45:00 Outpatient JERONIMO ROME [facility] [id number] [facility] 2022-03-04 08:18:01 2022-03-04 23:59:00 Outpatient VIKKI MENDES [facility] [id number] [facility] 2022-03-04 08:18:01 2022-03-04 23:59:00 Outpatient VIKKI MENDES [facility] [id number] [facility] 2022-03-04 08:18:01 2022-03-04 23:59:00 Hospital Encounter Andrescameron Vikki [facility] 1.2.840.114 350.1.13.10 4.2.7.2.686 [id number] 802 [id number] [facility] 2022-03-03 00:00:00 2022-03-03 00:00:00 Telephone [facility] 1.2.840.114 350.1.13.10 4.2.7.2.686 [id number] [facility] 2022-03-03 00:00:00 2022-03-03 00:00:00 Telephone [facility] 1.2840.114 350.1.13.10 4.2.7.2.686 [id number] [facility] 2022-02-21 10:40:23 2022-02-21 23:59:00 Outpatient R SIMÓN [facility] [id number] [facility] 2022-02-21 10:40:00 2022-02-21 23:59:00 Hospital Encounter Ирина Ortiz [facility] 1.2840.114 350.1.13.10 4.2.7.2.686 [id number] 800 [id number] [facility] 2022-02-21 00:00:00 2022-02-21 00:00:00 Orders Only Doctor Unassigned, [place] [facility] 1.2.840.114 350.1.13.10 4.2.7.2.686 [id number] [id number] [facility] 2022-02-18 00:00:00 2022-02-18 00:00:00 Telephone [facility] 1.2.840.114 350.1.13.10 4.2.7.2.686 [id number] [facility] 2022-02-18 00:00:00 2022-02-18 00:00:00 Orders Only Doctor Unassigned, [place] [facility] 1.2.840.114 350.1.13.10 4.2.7.2.686 [id number] [facility] 2022-02-18 00:00:00 2022-02-18 00:00:00 Telephone Vikki Donato [facility] 1.2.840.114 350.1.13.10 4.2.7.2.686 [id number] [facility] 2021-11-22 10:00:00 2021-11-22 10:45:13 Outpatient R SIMÓN [facility] [id number] [facility] 2021-11-22 10:00:00 2021-11-22 10:45:13 [facility] 1..840.114 350.1.13.10 4.2.7.2.686 [id number] 220 [id number] [facility] 2021-11-22 10:00:00 2021-11-22 10:45:13 Outpatient R SIM[facility]N [facility] [id number] [facility] 2021-10-25 00:00:00 2021-10-25 00:00:00 Refill Lizbeth Cardenas [facility] 1..840.114 350.1.13.10 4.2.7.2.686 [id number] 220 [id number] [facility] 2021-08-13 11:00:00 2021-08-13 11:00:00 Outpatient R LIZBETH CARDENAS [facility] [id number] [facility] 2021-05-15 00:00:00 2021-05-15 00:00:00 Orders Only Doctor Unassigned, [place] [facility] 1.2.840.114 350.1.13.10 4.2.7.2.686 [id number] [facility] 2021-05-15 00:00:00 2021-05-15 00:00:00 Orders Only Doctor Unassigned, [place] [facility] 1.2.840.114 350.1.13.10 4.2.7.2.686 [id number] 2021-05-03 13:19:28 2021-05-03 14:16:38 Office Visit [facility] 1.2.840.114 350.1.13.10 4.2.7.2.686 [id number] 220 [id number] [facility] 2021-05-03 13:19:28 2021-05-03 14:16:38 Office Visit Simón [facility] 1.2.840.114 350.1.13.10 4.2.7.2.686 [id number] 220 [id number] 2021-05-03 13:30:00 2021-05-03 13:30:00 Outpatient R SIMÓN [facility] [id number] [facility] 2021-04-24 00:00:00 2021-04-24 00:00:00 Refill Lizbeth Cardenas [facility] 1.2.840.114 350.1.13.10 4.2.7.2.686 [id number] 220 [id number] [facility] 2021-02-26 00:00:00 2021-02-26 00:00:00 Telephone Nadir [facility] 1.2.840.114 350.1.13.10 4.2.7.2.686 [id number] 220 [id number] [facility] 2021-02-07 09:20:34 2021-02-07 23:59:00 Hospital Encounter Lizbeth Cardenas [facility] 1.2.840.114 350.1.13.10 4.2.7.2.686 [id number] 800 [id number] [facility] 2021-02-07 09:45:00 2021-02-07 09:45:00 Outpatient R [facility] [id number] [facility] 2021-02-07 09:19:36 2021-02-07 09:34:36 Signs And Displays Salesperson Visit 2, Adc Lab Nadir [facility] 1.2.840.114 350.1.13.10 4.2.7.2.686 [id number] [facility] 2021-02-07 00:00:00 2021-02-07 00:00:00 Orders Only Doctor Unassigned, [place] [facility] 1.2.840.114 350.1.13.10 4.2.7.2.686 [id number] [facility] 2021-02-05 15:30:02 2021-02-05 16:24:34 [facility] 1.2.840.114 350.1.13.10 4.2.7.2.686 [id number] 220 [id number] [facility] 2021-02-05 15:30:00 2021-02-05 15:30:00 [facility] [id number] [facility] 2021-02-04 12:50:00 2021-02-04 12:50:00 Outpatient CARLITA ERNANDEZ [facility] [id number] [facility] 2021-01-14 10:30:00 2021-01-14 10:30:00 Outpatient CARLITA ERNANDEZ [facility] [id number] [facility] 2020-12-01 00:00:00 2020-12-01 00:00:00 Refill Jesus Newman [facility] 1.2.840.114 350.1.13.10 4.2.7.2.686 [id number] 220 [id number] [facility] 2020-06-15 00:00:00 2020-06-15 00:00:00 Refill Jesus Newman [facility] 1.2.840.114 350.1.13.10 4.2.7.2.686 [id number] 220 [id number] [facility] 2020-03-25 00:00:00 2020-03-25 00:00:00 Refill Lizbeth Cardenas [facility] 1.2.840.114 350.1.13.10 4.2.7.2.686 [id number] 220 [id number] [facility] 2020-03-23 13:30:00 2020-03-23 13:30:00 Outpatient R JESUS NEWMAN [facility] [id number] [facility] 2020-03-19 00:00:00 2020-03-19 00:00:00 Refill Lizbeth Cardenas [facility] 1.2.840.114 350.1.13.10 4.2.7.2.686 [id number] 220 [id number] [facility] 2020-03-06 10:00:00 2020-03-06 10:00:00 Outpatient R NADIR [facility] [id number] [facility] 2020-03-06 08:02:38 2020-03-06 08:32:38 Telemedici ne Visit Nadir [facility] 1.2.840.114 350.1.13.10 4.2.7.2.686 [id number] 220 [id number] [facility] 2020-02-28 00:00:00 2020-02-28 00:00:00 Refill Nadir [facility] 1.2.840.114 350.1.13.10 4.2.7.2.686 [id number] 220 [id number] [facility] 2020-02-07 09:00:00 2020-02-07 09:00:00 Outpatient R NADIR [facility] [id number] [facility] 2020-01-24 11:00:00 2020-01-24 11:30:00 Office Visit Nadir [facility] 1.2.840.114 350.1.13.10 4.2.7.2.686 [id number] 220 [id number] [facility] 2020-01-24 11:00:00 2020-01-24 11:00:00 Outpatient R NADIR [facility] [id number] [facility] 2019-08-02 00:00:00 2019-08-02 00:00:00 Refill Marychuy Mcdonnell [facility] 1..840.114 350.1.13.10 4.2.7.2.686 [id number] 220 [id number] [facility] 2019-07-26 13:14:50 2019-07-26 13:53:33 Office Visit Nadir [facility] 1.2.840.114 350.1.13.10 4.2.7.2.686 [id number] 220 [id number] [facility] 2019-07-26 00:00:00 2019-07-26 00:00:00 Orders Only Doctor Unassigned, [place] [facility] 1.2.840.114 350.1.13.10 4.2.7.2.686 [id number] [id number] [facility] 2019-06-16 14:48:06 2019-06-16 15:42:48 Retail Assistant Store Manager Visit Joyce Irizarry [facility] 1.2.840.114 350.1.13.10 4.2.7.2.686 [id number] 220 [id number] [facility] 2019-06-16 00:00:00 2019-06-16 00:00:00 Orders Only Doctor Unassigned, [place] [facility] 1..840.114 350.1.13.10 4.2.7.2.686 [id number] [id number] [facility] Results Test Description Test Time Test Comments Results Resul t Comments Source Dexa Axial (hip and spine) 2025-02-21 1 20:59:02 EXAM: Dual-energy X-ray absorptiometry. HISTORY: Age-related osteoporosis without current pathological fractureExternal orders COMPARISON: 02/21/2022. TECHNIQUE and FINDINGS: Bone densitometry of the lumbar spine and right hip was performed. --WHO-definitions: T-score normal: +/- 1 SD around the meanosteopenia: >1 to 2.4 SD below the meanosteoporosis: >2.5 SD below the meanFracture risk doubles for each 1.5 SD below the mean. ------- [facility] [id number] 15:46:00 * Test Item Value Reference Range Interpretation Comme nts COAGULATION TIME ACTIVATED (test code = ACT) 282 SECONDS Performed by certified gear milling machine set up operator at [facility] BASIC METABOLIC [id number] 13:13:00* Test Item Value Reference Range Interpretation Comme nts SODIUM (test code = NA) 141 mEq/L 134-147 N POTASSIUM (test code = K) 2.9 mEq/L 3.4-5.0 LL Critical result called to Calvin BLOUNT [id number] at 1312 08/10/24Nurse read back resut and [...] = CA) 8.3 mg/dL 8.0-10.5 N PROTHROMBIN [id number] 12:44:00* Test Item Value Reference Range Interpretation [...] Infarction (to prevent recurrent infarct). BASIC METABOLIC [id number] 15:41:00* Test Item Value Reference Range Interpretation Comme nts SODIUM (test code = NA) 138 mEq/L 134-147 N POTASSIUM (test code = K) 2.8 mEq/L 3.4-5.0 LL Critical result called to MONET MILLIGAN,RNby [id number] at 1536 08/08/24Nurse read back resut and [...] code = CA) 8.3 mg/dL 8.0-10.5 N [id number] 15:41:00* Test Item Value Reference Range Interpretation Comme nts PREALBUMIN (test code = PREALB) 13.0 mg/dL 16.0-40.0 L CBC W/AUTO [id number] 15:17:00* Test Item Value Reference Range Interpretation [...] x10 3/uL 0.0-0.1 N POCT Hemoglobin A1C [id number] 18:00:00* Test Item Value Reference Range Interpretation Comme nts POCT HBA1C (test code = 4548-4) 5.5 % 4-6 [facility] Hemoglobin A1C [id number] 18:00:00* Test Item Value Reference Range Interpretation Comme nts POCT HBA1C (test code = 4548-4) 5.5 % 4-6 [facility] Notes Date/Time Note Provider Source 2025-04-26 09:01:08 Renfill has been set to phx on file . Requested Prescriptions Pending Prescriptions Disp Refills levothyroxine 25 mcg tablet [Pharmacy Med Name: LEVOTHYROXINE 0.025MG (25MCG) TAB] 90 tablet 0 Sig: TAKE 1 TABLET BY MOUTH EVERY MORNING Ly Renteria MA [facility] 2025-03-23 14:53:21 Refill has been sent to pharmacy on file. Elodia Sumner RN [facility] 2024-10-06 14:55:02 Spoke with patient, she has experience dizziness since having a walkman placed for her A-Fib. Pt was recommended to follow up with her client services director and her PCP. Pt verbalized that she called her client services director and has an appt 10/13. She stated she has not talked to her PCP, she stated she will FU with her PCP and then call us for a FU after. Pt verbalized no further questions. ASSAYER Elodia Sumner RN [facility] 2024-10-06 14:22:08 Nori Cerna is a 68 year old female Patient is calling to schedule an appointment with Dr. Cardenas per ER request. The soonest I see is in January, please check if the patient can be overbooked. Patient mentioned that she has been very dizzy and weak, and had a fall last Thursday. Currently exhibiting symptoms. Patient disconnected. Please advise. ASSAYER Carolina Solo [facility] 2024-09-20 13:00:00 Images from the original note were not included. Venipuncture collection performed by clean technique on the back of right hand. Total of 1 attempts were made. Slight pressure and a bandage/dressing were applied to the site(s). The patient experienced no complications. The following specimens were processed according to instructions and sent to [facility] laboratories per lab order on today: LT BLUE SST 2 RED LAV PPT DK GREEN (LiHep) DK GREEN (SodH) RHODES DK BLUE (K2) DK BLUE (S) ACD Blood Culture NIPT/NTD [facility] 2024-08-11 06:51:00 [id number] [place] [address] PATIENT NAME: NORI CERNA ADMIT DATE: 08/10/24 ACCOUNT NO: [id number] ROOM NO: [place] AGE: 68 REPORT TYPE: eECHOCARDIOGRAM REPORT SEX: F ADMITTING PHYSICIAN:Gavin Howe MD ATTENDING PHYSICIAN:Gavin Howe MD *[place] [address] Limited Transthoracic Echocardiogram Patient: Nori Cerna Study Date: 08/10/2024 BP: 158 / 72 URN: [id number] Location: : 1955 Age: 68 Gender: F Height: 62 in / 157.5 cm Weight: 160 lb / 72.6 kg BMI/BSA: 29.3 kg/m 2 / 1.81 m 2 *Ordering Physician: * Arash Norman *Interpreting Physician: * Jc Smith MD *Field Marketing Lead: * Annalisa Jamison Indications: Rule out pericardial effusion. Study data: Transthoracic echocardiogram, limited study. Procedure: A transthoracic echocardiogram was performed. Image quality was adequate. Limited 2D and limited spectral Doppler. Location: Bedside. Patient status: Inpatient. Patient room number: CHIN-4. Study status: [facility]. Heart rate: 67 bpm. Findings Left [...] 06:51 at 0651 PATIENT NAME: NORI CERNA [facility] 2024-08-10 17:45:00 [id number] [place] [address] PATIENT NAME: NORI CERNA ADMIT DATE: 08/10/24 ACCOUNT NO: [id number] ROOM NO: [place] AGE: 68 REPORT TYPE: eTRANSESOPHAGEAL ECHO REPORT SEX: F ADMITTING PHYSICIAN:Gavin Howe MD ATTENDING PHYSICIAN:Gavin Howe MD *[place] [address] Transesophageal Echocardiogram for Og Patient: Nori Cerna Study Date: 08/10/2024 BP: URN: [id number] Location: : 1955 Age: 68 Gender: F Height: 61.8 in / 157 cm Weight: 160.9 lb / 73 kg BMI/BSA: 29.6 kg/m 2 / 1.81 m 2 *Ordering Physician: * Too Taylor *Interpreting Physician: * Jc Smith MD *Field Marketing Lead: * Gail Pierre, HANKCS, RVS Indications: Atrial Fibrillation. Study data: Transesophageal Echocardiogram [...] removed. No intracardiac thrombus was identified. Location: EP laboratory. Patient status: Observation. PATIENT NAME: NORI [...] 17:45 at 1745 PATIENT NAME: NORI CERNA [facility] 2024-08-10 16:27:00 [id number] [place] [address] PATIENT NAME: NORI CERNA ADMIT DATE: 08/10/24 ACCOUNT NO: [id number] ROOM NO: [facility] AGE: 68 REPORT TYPE: eELECTROCARDIOGRAM REPORT SEX: F ADMITTING PHYSICIAN:Gavin Howe MD ATTENDING PHYSICIAN:Gavin Howe MD Order: [id number] Test Reason : S/P WATCHMAN Test Date/Time [...] MD at 1822 PATIENT NAME: NORI CERNA [facility] 2024-08-10 15:53:00 [id number] [place] [address] PATIENT NAME: NORI CERNA ADMIT DATE: 08/10/24 ACCOUNT NO: [id number] ROOM NO: [place] AGE: 68 REPORT TYPE: OPERATIVE REPORT SEX: F ADMITTING PHYSICIAN:Gavin Howe MD ATTENDING PHYSICIAN:Gavin Howe MD OPERATION DATE: 08/10/2024 PREOPERATIVE DIAGNOSIS: POSTOPERATIVE DIAGNOSIS: PROCEDURE PERFORMED: Left atrial appendage closure using a 24-mm Watchman FLX closure device. SURGEON: Gavin Howe MD SOLAR ENGINEER: ANESTHESIA: INDICATION: Atrial fibrillation with high CHADS-VASc score, risk of bleeding, and intolerant of anticoagulants. ACCESS: Right common femoral vein 16-Monegasque, closed with ubtdip-or-uiwso suture. COMPLICATIONS: None. BLEEDING: Less than 50 [...] kit and ultrasound guidance, and placed an 8-Monegasque [place] sheath and gave partial dose of heparin and then exchanged for 16-Monegasque Cook sheath and then took SL1 sheath over the wire into the SVC. With the [place] needle into interatrial septum in the low-mid [...] the Watchman sheath. The Cook sheath and hzfleu-mn-tnetb suture was placed for closure with good hemostasis. CONCLUSION: Successful left atrial appendage closure using a 24-mm Watchman FLX closure device. Dictated By: Gavin Howe MD Date Dictated: 08/10/2024 15:53:10 Date Transcribed: 08/10/2024 18:17:17 SR/JUAREZ/LUIS/NAG Receipt ID: [id number] Authenticated by Gavin Howe MD On 09/13/2024 07:51:13 AM at 0751 PATIENT NAME: NORI CERNA [facility] 2024-08-10 12:21:00 [facility] ([facility]) Discharge Summary REPORT#:[id number] REPORT STATUS: Signed REPORT INITIALIZATION DATE:08/10/24 TIME: 1220 PATIENT: NORI CERNA UNIT #: [id number] ROOM/BED: [place] [address] : [birth year] AGE: 68 SEX: F ATTEND: Gavin Howe MD ADM AUTHOR: Arash Norman REPT SERVICE DT/TIME: 08/10/24 1221 * ALL edits or amendments must be made on the electronic/computer document * PCP PCP Discharge to: home General Information Discharge date: 08/10/24 Discharge diagnosis: AFIB Hospital course: Patient with paroxysmal atrial fibrillation, [id number] score of 4, and intolerance to long-term [...] is to follow up with PCP and client services director in 1 to 2 weeks after discharge. Patient is to follow up with client services director for the 45-day RYLAND and for anticoagulation [...] of breath, lightheadedness, or dizziness to the client services director. Dispo: It is medically necessary that patients [...] distress GI: soft, non-tender Extremities: moves all Neuro/GLOBAL MOBILITY SPECIALIST: alert, oriented X 3 Skin: dry Wound/incision: [...] 1711 Report Impression - Status: SIGNED Entered: 08/10/20241815 Impression: 1. No radiographic evidence of acute cardiopulmonary disease. Impression By: Charissa Duran M.D. Treatments Procedures Treatments Procedures: Left atrial appendage [...] Report Impression - Status: SIGNED Entered: 08/08/2024 1716 IMPRESSION: No acute cardiopulmonary process. Impression By: [...] or Older Discussed with: patient at 1019 at 2027 RPT #:[id number] END OF REPORT [facility] 2024-08-08 15:25:00 [facility] ([facility] Hospitalist History Physical REPORT#:[id number] REPORT STATUS: Signed REPORT INITIALIZATION DATE:08/08/24 TIME: 152 PATIENT: NORI CERNA UNIT #: [id number] ROOM/BED: : 56 AGE: 68 SEX: F [...] soft Extremities: no edema Musculoskeletal: normal inspection Neuro/GLOBAL MOBILITY SPECIALIST: alert, oriented X 3, normal speech, no [...] (Auto) (14.0 - 32.0 %) 12.0 L [place] % (Auto) (4.8 - 9.0 %) 3.6 L Eos % (Auto) (0.3 - 3.7 %) 2.2 Baso % (Auto) (0.0 - 2.0 %) 0.2 Neut # (Auto) (2.0 - 7.6 x10 3/uL) 7.96 H Lymph # (Auto) (1.0 - 3.8 x10 3/uL) 1.17 [place] # (Auto) (0.1 - 0.8 x10 3/uL) [...] patient Discussion included: living will, power of manager customs, code status, FULL CODE at 1531 [facility] #:[id number] END OF REPORT [facility] 2024-08-08 13:34:00 [id number] [place] [address] PATIENT NAME: NORI CERNA ADMIT DATE: ACCOUNT NO: [id number] ROOM NO: AGE: 68 REPORT TYPE: eELECTROCARDIOGRAM REPORT SEX: F ADMITTING PHYSICIAN: ATTENDING PHYSICIAN:Gavin Howe MD Order: [id number] Test Reason : PREOP Test Date/Time Stamp: [...] MD at 1532 PATIENT NAME: NORI CERNA [facility] 2024-02-22 09:12:07 SHIRIN 09/08/23 NOV 03/08/24 Per [facility] note: Hypothyroidism: --Continue Levothyroxine 25 mcg daily. Take on an empty stomach. Nimco Mccabe LVN [facility] 2023-12-04 16:24:41 Images from the original note were not included. Last Refilled: 10/30/23 Notes: [facility] - [place], [place] - [address] Recent Visits Date Type Provider Dept 09/29/23 Office Visit Jolanta Lee MD [facility] Showing recent visits within past 540 days with a meds authorizing provider and meeting all other requirements Future Appointments No visits were found meeting these conditions. Showing future appointments within next 150 days with a meds authorizing provider and meeting all other requirements Name from pharmacy: [facility] 290MCG CAPSULES Will file in chart as: [facility] 290 mcg Cap Sig: TAKE 1 CAPSULE BY MOUTH IN THE MORNING Disp: 30 capsule Refills: 0 (Pharmacy requested: Not specified) Start: 12/04/2023 Class: eRX Non-formulary For: Constipation, unspecified constipation type; Irritable bowel syndrome with constipation Last ordered: 1 month ago (10/30/2023) by Jolanta Lee MD Last refill: 10/30/2023 Rx #: [id number]|0|1 Off-Protocol Eemwud1312/04/2023 03:51 PM Protocol Details Medication not assigned to a protocol, forward to provider. Valid encounter within last 12 months [id number] [place], [place] - [address] [facility] [employer] IRA Cabrales MA [facility] 2023-06-22 13:09:54 Formatting of this n ote might be different from the original. NOV: 09/08/23 SHIRIN: 07/01/22 Refill sent [facility] 2023-06-22 09:00:25 Formatting of this n ote might be different from the original. Images from the original note were not included. Danyell Martinez [facility] 2020-02-27 10:39:27 Patient no-showed last two OV. Please schedule telemed visit with Dr. Cardenas. SHIRIN: 09/28/19 Beth Maravilla RN [facility]"
[2025-05-23] MEDS ORDERED: NA CHLORIDE 0.9% 1,000 ML ONE (15:46)
[2025-05-23] MEDS ORDERED: HYDROCORTISONE SUC 100 MG INJ ONE (15:46)
[2025-05-23 15:54] LABS: Absolute Lymphocytes (CBC) 1.1 K/uL (0.7-4.9); Hematocrit 33.2 % (36.0-45.0); Hemoglobin 11.0 g/dL (12.0-15.0); MCH 24.1 pg (27.0-35.0); MCHC 33.1 g/dL (32.0-36.0); MCV 72.8 fL (80-100); MPV 7.6 fL (7.6-11.3); Nucleated RBC Absolute Count 0.0 (0-0); Nucleated Red Blood Cells % 0.0 % (0-0); RBC Red Blood Cell Count 4.56 M/uL (3.86-4.86); White Blood Count 11.50 thou/uL (4.3-10.9)
[2025-05-23 16:00] LABS: PT Prothrombin Time 14.1 SECONDS (10-13.0); Protime INR 1.25
[2025-05-23 16:03] LABS: Anisocytosis 1+; Blood Morphology Comment NOTED (NOT SEEN); White Blood Cell Scan OK (OK)
--- NOTE | 2025-05-23 16:21 | RAD REPORT ---
EXAM: Chest Single View HISTORY: 69 years Female PALPITATIONS COMPARISON: 11/15/2024 FINDINGS: LUNGS/PLEURA: Diffuse prominence of the pulmonary vasculature. CARDIAC/MEDIASTINUM: Mild to moderate cardiomegaly. UPPER ABDOMEN: No significant abnormality. BONES: No acute abnormality. LINES/TUBES/OTHER: N/A IMPRESSION: Pulmonary vascular congestion.
[2025-05-23 16:23] LABS: ALT/SGPT 81.0 U/L (13-56); AST/SGOT 102.0 U/L (15-37); Albumin 3.2 g/dL (3.4-5.0); Alkaline Phosphatase 137.0 U/L (45-117); Anion Gap 12.9 mEq/L (5.0-15.0); BUN Blood Urea Nitrogen 25.0 mg/dL (7-18); Bilirubin Indirect, Calculated 0.3 mg/dL (0.2-0.8); Globulin 4.3 g/dL (2.3-3.5); Glucose Level 124.0 mg/dL (74-106); Potassium 2.9 mEq/L (3.5-5.1)
[2025-05-23 16:24] LABS: Albumin/Globulin Ratio 0.7 (1.1-1.8); NT PRO-BNP 20992.0 pg/mL (<125); Thyroid Stimulating Hormone 1.72 uIU/mL (0.358-3.740)
[2025-05-23 16:26] LABS: Troponin High Sensitivity 771.1 pg/mL (<58.9)
--- NOTE | 2025-05-23 17:00 | RAD REPORT ---
EXAMINATION: Abdomen Pelvis W Contrast CLINICAL INDICATION: Female, 69 years old.abd pain/distension TECHNIQUE: CT abdomen and pelvis was performed, after the administration of IV contrast, as per [facility] protocol. Axial, sagittal and coronal reconstructions were obtained. One or more of the following dose reduction techniques were used: Automated exposure control, adjustment of the mA and/o r kV according to patient size, and/or iterative reconstruction. Unless otherwise specified, incidental findings do not require dedicated imaging follow-up. [id number]. COMPARISON: 10/05/2024 FINDINGS: LOWER CHEST: Bilateral pleural effusions and associated atelectasis.Moderate cardiomegaly. Mild circu mferential thickening of the distal esophagus which could reflect esophagitis. UPPER GI: No significant abnormality. LIVER: Hepatic steatosis, but otherwise unremarkable. Pneumobilia. GALLBLADDER/BILE DUCTS: Cholecystectomy. Moderate extrahepatic biliary ductal dilatation. This could be secondary to the post-cholecystectomy state. Recommend correlation with LFT's. If abnormal, consider MRCP for further evaluation. ? PANCREAS: Atrophy but no acute findings. SPLEEN: Unremarkable. ADRENALS: No adrenal masses. KIDNEYS AND URETERS: No hydronephrosis.Low density and/or too small to characterize renal lesions whi ch are statistically benign.Right upper pole renal stone measuring 2.2 cm. ABDOMINAL AORTA AND OTHER VESSELS: Mild atherosclerotic changes. PERITONEUM: No abnormal free fluid. No free air. LYMPH NODES: No pathologic lymphadenopathy. ABDOMINAL WALL: Unremarkable SMALL BOWEL/COLON: Large volume of semiformed stool contents in the colon. No bowel obstruction URINARY BLADDER: Underdistended but grossly unremarkable. REPRODUCTIVE ORGANS: No pathologic process. MUSCULOSKELETAL: Remote T12 compression fracture. ADDITIONAL FINDINGS: None. IMPRESSION: No acute findings within the abdomen or pelvis. Large volume of semiformed contents within the colon but no bowel obstruction or evidence of fecal im paction.
[2025-05-23] MEDS ORDERED: CIPROFLOXACIN 400mg IV 400 MG/200 ML BAG IV ONE (17:06)
[2025-05-23] MEDS ORDERED: METRONIDAZOLE 500mg IVPB 500 MG/100 ML BAG IV ONE (17:06)
--- NOTE | 2025-05-23 17:06 | EDPHYS ---
Physician Documentation [facility] Name: Dulce Cerna Age: 69 yrs Sex: Female : 1955 Arrival Date: 05/23/2025 Time: 15:08 Bed 4 Private MD: ED Physician Brad Hernández HPI: 05/23 15:23 This 69 yrs old Female presents to ER via EMS with complaints of palpitations, weakness.rn 15:23 EMS reports A-fib with RVR and hypotension. Patient with known A-fib, takes metoprolol. rn Patient reports generalized weakness and fell last night, denies injury from fall but reports too weak to get up. Patient also with history of Wagoner's disease. Reports abdominal pain with nausea but no vomiting or diarrhea. No blood in stool. Reports abdominal distention.. Historical: - Allergies: 15:23 PENICILLINS; jb4 15:23 Sulfa (Sulfonamide Antibiotics); jb4 - Home Meds: 15:23 aripiprazole 2 mg Oral tablet every day at bedtime [Active]; duloxetine 60 mg Oral cpDR jb4 2 caps once daily [Active]; levothyroxine 25 mcg tab 1 tab once daily [Active]; metoprolol tartrate 100 mg Oral tablet 2 times per day [Active]; rosuvastatin 10 mg Oral tablet daily [Active]; oxycodone 10 mg Oral tab 1 tab three times a day [Active]; fludrocortisone 0.1 mg Oral tab 1 tab once daily for Symptomatic Orthostatic Hypotension [Active]; 15:50 alendronate 70 mg Oral tablet every week [Active]; amitriptyline 150 mg oral tablet hb [Active]; clonazepam 0.5 mg oral tablet as needed [Active]; estradiol 2 mg Oral tab 1 tab once daily [Active]; hydrocortisone 10 mg Oral tab [Active]; eszopiclone 2 mg Oral tablet every day at bedtime [Active]; omeprazole 20 mg oral capsule,delayed release (e.c.) daily [Active]; amiodarone 100 mg Oral tablet 2 times per day [Active]; Linzess 290 mcg oral capsule nightly [Active]; Movantik 25 mg oral tablet every morning [Active]; aspirin 81 mg Oral tablet,chewable daily [Active]; - PMHx: 15:23 addisons; Chronic pain; Early Dementia; Hyperlipidemia; Irritable bowel syndrome; jb4 Depression; TIA; - PSHx: 15:23 Appendectomy; Cholecystectomy; endometriosis; Exploratory laparotomy; jb4 - Immunization history:: Adult Immunizations up to date. - Infectious Disease History:: Denies. - Family history:: not pertinent. - Social history:: Smoking status: Patient denies any tobacco usage or history of. - Hospitalizations: : No recent hospitalization is reported. ROS: 15:23 Constitutional: Negative for fever, chills, and weight loss, Cardiovascular: Negative rn for chest pain, and edema, Respiratory: Negative for cough, wheezing, and pleuritic chest pain, Abdomen/GI: Positive for abdominal pain with bloating and nausea MS/Extremity: Negative for injury and deformity, Skin: Negative for injury, rash, and discoloration, Neuro: Positive for generalized weakness Exam: 15:23 Constitutional: This is a well developed, well nourished patient who is awake, alert, rn and in no acute distress. Head/Face: Normocephalic, atraumatic. Cardiovascular: Tachycardic, irregular Respiratory: No increased work of breathing, no retractions or nasal flaring. Abdomen/GI: Soft, tympanitic and gaseous distention of upper abdomen. No peritoneal signs. Mid abdominal tenderness present. MS/ Extremity: Pulses equal, no cyanosis. Neuro: Awake and alert, GCS 15, oriented to person, place, time, and situation. Cranial nerves II-XII grossly intact. Motor strength 4/5 in all extremities. Sensory grossly intact. Vital Signs: 15:20 BP 95 / 55; Pulse 83; Resp 18; Pulse Ox 96% on R/A; jb4 15:51 BP 91 / 64; Pulse 92; Resp 16; Pulse Ox 92% on R/A; Pain 0/10; ss 15:54 Temp 98.6(O); ss 16:23 BP 97 / 68; Pulse 86; Resp 15; Pulse Ox 92% on R/A; hb 16:58 BP 98 / 65; Pulse 81; Resp 16; Pulse Ox 94% on R/A; hb 17:43 BP 105 / 82; Pulse 87; Resp 15; Pulse Ox 94% on R/A; Pain 0/10; ss 18:19 BP 122 / 73; Pulse 81; Resp 15; Pulse Ox 95% ; Pain 0/10; ss 15:51 Pain Scale: Adult ss 17:43 Pain Scale: Adult ss 18:19 Pain Scale: Adult ss MDM: 15:20 Medical Screening Exam initiated rn 17:02 Differential Diagnosis Addisonian crisis, A-fib RVR, dehydration. Data reviewed: vital rn signs, nurses notes, lab test result(s), EKG, radiologic studies, CT scan, plain films, and as a result, I will admit patient. Consideration of Admission/Observation Patient was admitted/placed on observation. Escalation of care including admission/observation considered. Counseling: I had a detailed discussion with the patient and/or guardian regarding the historical points, exam findings, and any diagnostic results supporting the discharge/admit diagnosis, lab results, radiology results, the need for further work-up and treatment in the hospital. ED course: CT abdomen pelvis negative for obstruction or fecal impaction. Covered with antibiotics. Admitted to hospitalist service. Current heart rate in the 90s. Blood pressure 99/70. Given steroids for Wagoner's disease.. 05/23 15:21 Order name: Basic Metabolic Panel; Complete Time: 16: 05/23 15:21 Order name: CBC with Diff; Complete Time: 16: 05/23 15:21 Order name: LFT's; Complete Time: 16: 05/23 15:21 Order name: NT PRO-BNP; Complete Time: 16: 05/23 15:21 Order name: PT-INR; Complete Time: 16: 05/23 15:21 Order name: Troponin HS; Complete Time: 16: 05/23 15:21 Order name: TSH; Complete Time: 16: 05/23 15:21 Order name: T4 Free; Complete Time: 16: 05/23 16:04 Order name: CBC Smear Scan; Complete Time: 16: [facility] 05/23 17:44 Order name: UA Rfx Twan Cult if indicated 05/23 17:55 Order name: Hemoglobin A1c [facility] 05/23 17:55 Order name: Lipid Profile [facility] 05/23 18:02 Order name: Magnesium [facility] 05/23 18:02 Order name: Phosphorus [facility] 05/23 18:02 Order name: Basic Metabolic Panel [facility] 05/23 18:02 Order name: Basic Metabolic Panel EDMS 05/23 18:02 Order name: CBC with Automated Diff EDMS 05/23 18:02 Order name: CBC with Automated Diff EDMS 05/23 15:21 Order name: XRAY Chest (1 view); Complete Time: 16:26 rn 05/23 15:21 Order name: CT Abd/Pelvis - IV Contrast Only; Complete Time: 17:01 rn 05/23 18:56 Order name: US EDMS 05/23 19:41 Order name: CT EDMS 05/23 15:21 Order name: EKG; Complete Time: 15:22 rn 05/23 15:21 Order name: Cardiac monitoring; Complete Time: 15:49 rn 05/23 15:21 Order name: EKG - Nurse/Tech; Complete Time: 15:49 rn 05/23 15:21 Order name: IV Saline Lock; Complete Time: 15:49 rn 05/23 15:21 Order name: Labs collected and sent; Complete Time: 15:49 rn 05/23 15:21 Order name: O2 Per Protocol; Complete Time: 15:49 rn 05/23 15:21 Order name: O2 Sat Monitoring; Complete Time: 15:49 rn Administered Medications: 15:49 Drug: Solu-CORTEF IVP 100 mg IVP once Route: IVP; Site: right antecubital; 17:42 Follow up: Response: No adverse reaction ss 15:49 Drug: NS 0.9% IV 1000 ml IV at 1000 ml once; to be given as a bolus over 60 minutes ss Route: IV; Rate: 1000 ml; Site: right antecubital; 17:43 Follow up: IV Status: Completed infusion; IV Intake: 1000ml ss 17:13 Drug: metroNIDAZOLE IVPB 500 mg 100 ml IVPB at 200 ml/hr once over 30 mins Volume: 100 hb ml; Route: IVPB; Rate: 200 ml/hr; Infused Over: 30 mins; Site: right antecubital; 17:42 Follow up: IV Status: Completed infusion ss 17:42 Drug: Ciprofloxacin IVPB 400 mg 200 ml IVPB once over 60 mins Volume: 200 ml; Route: ss IVPB; Infused Over: 60 mins; Site: right antecubital; 20:00 Follow up: Response: No adverse reaction; IV Status: Completed infusion ha1 Disposition Summary: 05/23/25 17:05 Hospitalization Ordered Notes: Hospitalization Status: Inpatient Admission rn Provider: Giacomo Awad rn Location: Telemetry/MedSurg (Inpatient) rn Condition: Stable rn Problem: new rn Symptoms: have improved rn Bed/Room Type: Standard rn Room Assignment: 222(05/23/25 18:13) bc6 Diagnosis - Other specified disorders of adrenal gland - Addisonian crisis rn - Hypotension, unspecified rn - Persistent atrial fibrillation rn - Muscle weakness (generalized) rn Forms: - Medication Reconciliation Form rn - SBAR form rn - Leadership Thank You Letter government program manager time excluding procedures: 17:02 Critical care time: Bedside Care: 30 minutes, Consultation: 5 minutes. Total time: 35 rn minutes Signatures: Dispatcher [employer] EDFL Brad Hernández MD MD rn Blanchard, Shelby, RN RN Humaira Schwarz RN RN hb Bryson, James RN RN [facility] Martine Correa [facility] Jeanne Marinelli RN ha1 Corrections: (The following items were deleted from the chart) 15:22 15:22 Abdomen Pelvis W Con+CT.RAD.BRZ ordered. [facility] 15:58 15:23 Home Meds: alendronate 70 mg Oral tablet every week; [facility] 15:58 15:23 Home Meds: amitriptyline 100 mg Oral tab 1 tab once daily; [facility] 15:58 15:23 Home Meds: amlodipine oral; [facility] 15:58 15:23 Home Meds: clonazepam 1 mg Oral tab 1 tab 2 times per day; [facility] 15:58 15:23 Home Meds: estradiol 2 mg Oral tab 1 tab once daily; [facility] 15:58 15:23 Home Meds: hydrocortisone 10 mg Oral tab; 2 tabs in AM; [facility] 15:58 15:23 Home Meds: eszopiclone 2 mg Oral tablet every day at bedtime; [facility] 15:58 15:23 Home Meds: Omeprazole Oral; [facility] 18:13 17:05 rn bc6
--- NOTE | 2025-05-23 17:06 | ER ---
Nurse's Notes [facility] Name: Dulce Cerna Age: 69 yrs Sex: Female : 1955 Arrival Date: 05/23/2025 Time: 15:08 Bed 4 Private MD: Diagnosis: Other specified disorders of adrenal gland-Addisonian crisis;Hypotension, unspecified;Persistent atrial fibrillation;Muscle weakness (generalized) Presentation: 05/23 15:20 Chief complaint: EMS states: Pt fell last night and was too weak to get up. Her sister zora found her this morning and helped her to a chair. Upon EMS arrival pt was pale a diaphoretic sitting in the chair. Rhythm noted as A-fib with RVR. B/p was 85/54. Coronavirus screen: At this time, the client does not indicate any symptoms associated with coronavirus-19. Initial Sepsis Screen: Does the patient meet any 2 criteria? No. Patient's initial sepsis screen is negative. Does the patient have a suspected source of infection? No. Patient's initial sepsis screen is negative. Risk Assessment: Do you want to hurt yourself or someone else? Patient reports no desire to harm self or others. Onset of symptoms was May 22, 2025. Transition of care: patient was not received from another setting of care. 15:20 Method Of Arrival: EMS: [facility] jb4 15:20 Acuity: TRACY 2 jb4 Historical: - Allergies: 15:23 PENICILLINS; jb4 15:23 Sulfa (Sulfonamide Antibiotics); jb4 - Home Meds: 15:23 aripiprazole 2 mg Oral tablet every day at bedtime [Active]; duloxetine 60 mg Oral cpDR jb4 2 caps once daily [Active]; levothyroxine 25 mcg tab 1 tab once daily [Active]; metoprolol tartrate 100 mg Oral tablet 2 times per day [Active]; rosuvastatin 10 mg Oral tablet daily [Active]; oxycodone 10 mg Oral tab 1 tab three times a day [Active]; fludrocortisone 0.1 mg Oral tab 1 tab once daily for Symptomatic Orthostatic Hypotension [Active]; 15:50 alendronate 70 mg Oral tablet every week [Active]; amitriptyline 150 mg oral tablet hb [Active]; clonazepam 0.5 mg oral tablet as needed [Active]; estradiol 2 mg Oral tab 1 tab once daily [Active]; hydrocortisone 10 mg Oral tab [Active]; eszopiclone 2 mg Oral tablet every day at bedtime [Active]; omeprazole 20 mg oral capsule,delayed release (e.c.) daily [Active]; amiodarone 100 mg Oral tablet 2 times per day [Active]; Linzess 290 mcg oral capsule nightly [Active]; Movantik 25 mg oral tablet every morning [Active]; aspirin 81 mg Oral tablet,chewable daily [Active]; - PMHx: 15:23 addisons; Chronic pain; Early Dementia; Hyperlipidemia; Irritable bowel syndrome; jb4 Depression; TIA; - PSHx: 15:23 Appendectomy; Cholecystectomy; endometriosis; Exploratory laparotomy; jb4 - Immunization history:: Adult Immunizations up to date. - Infectious Disease History:: Denies. - Family history:: not pertinent. - Social history:: Smoking status: Patient denies any tobacco usage or history of. - Hospitalizations: : No recent hospitalization is reported. Screenin:23 [facility] ED Fall Risk Assessment (Adult) History of falling in the last 3 months, hb including since admission No falls in past 3 months (0 pts) Confusion or Disorientation No (0 pts) Intoxicated or Sedated No (0 pts) Impaired Gait No (0 pts) Mobility Assist Device Used No (0 pt) Altered Elimination No (0 pt) Score/Fall Risk Level 0 - 2 = Low Risk Oriented to surroundings, Maintained a safe environment, Educated pt \T\ family on fall prevention, incl call for assistance when getting out of bed. Abuse screen: Denies threats or abuse. Denies injuries from another. Nutritional screening: No deficits noted. Tuberculosis screening: No symptoms or risk factors identified. Assessment: 15:51 General: Appears in no apparent distress. Behavior is calm, cooperative, drowsy. Neuro: ss Level of Consciousness is awake, obeys commands, Oriented to person, place, time, situation, Speech is normal, Facial symmetry appears normal. Cardiovascular: Rhythm is atrial fibrillation. Respiratory: Airway is patent Respiratory effort is even, unlabored, Respiratory pattern is regular, symmetrical. GI: Patient currently denies diarrhea, nausea, vomiting. : No signs and/or symptoms were reported regarding the genitourinary system. Derm: Skin is clammy, Skin is pink, Skin temperature is cool. 16:04 Reassessment: XRAY at bedside. ss 16:40 Reassessment: Pt to CT at this time VIA stretcher. ss 18:09 Reassessment: Sister Yashira [phone]. hb 18:23 Reassessment: US at bedside. Pt is resting with eyes closed. RR even and unlabored ss Report faxed to 2nd floor. Spoke with ROYAL Ashton. Vital Signs: 15:20 BP 95 / 55; Pulse 83; Resp 18; Pulse Ox 96% on R/A; jb4 15:51 BP 91 / 64; Pulse 92; Resp 16; Pulse Ox 92% on R/A; Pain 0/10; ss 15:54 Temp 98.6(O); ss 16:23 BP 97 / 68; Pulse 86; Resp 15; Pulse Ox 92% on R/A; hb 16:58 BP 98 / 65; Pulse 81; Resp 16; Pulse Ox 94% on R/A; hb 17:43 BP 105 / 82; Pulse 87; Resp 15; Pulse Ox 94% on R/A; Pain 0/10; ss 18:19 BP 122 / 73; Pulse 81; Resp 15; Pulse Ox 95% ; Pain 0/10; ss 15:51 Pain Scale: Adult ss 17:43 Pain Scale: Adult ss 18:19 Pain Scale: Adult ss ED Course: 15:19 Patient arrived in ED. iw 15:20 Brad Hernández MD is Attending Physician. rn 15:20 Bib Riley, RN is Primary Nurse. jb4 15:23 Triage completed. jb4 15:23 Arm band placed on right wrist. jb4 16:15 XRAY Chest (1 view) In Process Unspecified. EDMS 16:23 Patient has correct armband on for positive identification. Bed in low position. Call hb light in reach. Provided Education on: call light . 16:23 Accessed peripheral vein via ultrasound, utilizing dynamic ultrasound technique using hb per hospital protocol. Clean \T\ dry. Dressing intact. Good blood return. Flushes easily. 20g RAC, by Marcia PAIGE. 16:26 Notified ED physician of a critical lab result(s). TROP 771.1. hb 16:38 CT Abd/Pelvis - IV Contrast Only In Process Unspecified. EDMS 17:04 Giacomo Awad MD is Hospitalizing Provider. rn 17:58 No provider procedures requiring assistance completed. Straight cath inserted, using sterile technique, 16 Fr. Specimen obtained. 550 output Returned clear yellow urine. Patient tolerated well. Patient admitted, IV remains in place. Administered Medications: 15:49 Drug: Solu-CORTEF IVP 100 mg IVP once Route: IVP; Site: right antecubital; 17:42 Follow up: Response: No adverse reaction ss 15:49 Drug: NS 0.9% IV 1000 ml IV at 1000 ml once; to be given as a bolus over 60 minutes ss Route: IV; Rate: 1000 ml; Site: right antecubital; 17:43 Follow up: IV Status: Completed infusion; IV Intake: 1000ml ss 17:13 Drug: metroNIDAZOLE IVPB 500 mg 100 ml IVPB at 200 ml/hr once over 30 mins Volume: 100 hb ml; Route: IVPB; Rate: 200 ml/hr; Infused Over: 30 mins; Site: right antecubital; 17:42 Follow up: IV Status: Completed infusion 17:42 Drug: Ciprofloxacin IVPB 400 mg 200 ml IVPB once over 60 mins Volume: 200 ml; Route: ss IVPB; Infused Over: 60 mins; Site: right antecubital; 20:00 Follow up: Response: No adverse reaction; IV Status: Completed infusion ha1 Medication: 20:14 VIS not applicable for this client. ha1 Intake: 17:43 IV: 1000ml; Total: 1000ml. Outcome: 17:05 Decision to Hospitalize by Provider. rn 18:24 Instructed on the need for admit, 20:13 Admitted to Med/surg accompanied by [facility], via stretcher, room 222, with chart, ha1 20:13 Condition: stable 20:14 Patient left the ED. ha1 Signatures: Dispatcher [employer] EDMS Cassandra Perry RN RN Brad Hernández MD MD rn Blanchard, Shelby, RN RN Humaira King RN RN hb Bryson, James, RN RN jb4 Ayala, Heidy, RN RN ha1 Corrections: (The following items were deleted from the chart) 15:58 15:23 Home Meds: alendronate 70 mg Oral tablet every week; zora 15:58 15:23 Home Meds: amitriptyline 100 mg Oral tab 1 tab once daily; [facility] 15:58 15:23 Home Meds: amlodipine oral; [facility] 15:58 15:23 Home Meds: clonazepam 1 mg Oral tab 1 tab 2 times per day; [facility] 15:58 15:23 Home Meds: estradiol 2 mg Oral tab 1 tab once daily; [facility] 15:58 15:23 Home Meds: hydrocortisone 10 mg Oral tab; 2 tabs in AM; [facility] 15:58 15:23 Home Meds: eszopiclone 2 mg Oral tablet every day at bedtime; [facility] 15:58 15:23 Home Meds: Omeprazole Oral; [facility] 16:25 16:23 Accessed peripheral vein via ultrasound, utilizing dynamic ultrasound technique hb using per hospital protocol. Clean \T\ dry. Dressing intact. Good blood return. Flushes easily. 20g RFA, by Marcia PAIGE. hb
[2025-05-23] MEDS ORDERED: ACETAMINOPHEN 325 MG TABLET PO PRN (17:51)
[2025-05-23 18:10] LABS: Sqamous Epithelial <5 /HPF (None Seen); Urine Culture Reflex Order NOT NEEDED; Urine Microscopic Reflex YN ORDER UMIC
--- NOTE | 2025-05-23 18:15 | P.HP ---
Certification for Inpatient Patient admitted to: Inpatient With expected LOS: >2 Midnights Patient will require the following post-hospital care: None Practitioner: I am a practitioner with admitting privileges, knowledge of patient current condition, hospital course, and medical plan of care. Services: Services provided to patient in accordance with Admission requirements found in Title 42 Section 412.3 of the Code of Federal Regulations Patient History Date of Service: 05/23/25 Reason for admission: Syncope, generalized weakness History of Present Illness: Patient is a 69-year-old female past medical history significant for A-fib, depression, anxiety disorder, hypothyroidism, GERD, hyperlipidemia, hypertension, Bruce's disease, CVA, early dementia, chronic back pain, TIA, IBS who presents with complaint of fall which occurred last night. Patient was found on the floor by family. Patient cannot recall falling but reports episodes of generalized weakness in the last couple of days. Family also reported the patient has been having episodes of dizziness and vertigo in the last couple of days and was placed on meclizine by her PCP. Patient was unable to get up and had to be assisted by her family. Family reported that patient was noted to be confused, lethargic and diaphoretic. At time of assessment patient is alert and oriented x 1, confused and unable to provide any accurate history. Patient however reports nausea and abdominal pain. Patient unable to quantify or pinpoint location of abdominal pain due to confusion. No other signs and symptoms reported. Symptoms are aggravated or relieved by nothing. Patient was brought to the hospital for medical evaluation. Allergies Penicillins Allergy (Verified 02/20/23 15:29) Shortness of breath Sulfa (Sulfonamide Antibiotics) [Sulfa(Sulfonamide Antibiotics)] Allergy (Verified 02/20/23 15:29) Shortness of breath NSAIDS Adverse Reaction (Uncoded 03/16/19 23:40) Kidney Problems Home Medications: Duloxetine HCl 120 mg PO DAILY 08/27/20 Estradiol 2 mg PO BEDTIME 08/27/20 Levothyroxine Sodium 25 mcg PO DAILY 08/27/20 Rosuvastatin Calcium 10 mg PO DAILY 08/27/20 clonazePAM [Klonopin*] 1 mg PO BIDP PRN 08/27/20 Amitriptyline [Elavil*] 150 mg PO BEDTIME 06/05/21 Oxycodone HCl 10 mg PO TID 05/11/22 Alendronate [Fosamax*] 70 mg PO EVERY 7TH DAY 02/20/23 ARIPiprazole [Aripiprazole] 2 mg PO BEDTIME #30 tab 02/24/23 Amlodipine [Norvasc*] 5 mg PO DAILY #30 tab 02/24/23 Eszopiclone [Lunesta] 2 tab PO BEDTIME #60 tab 02/24/23 Fludocortisone 0.1 mg PO DAILY #30 tab 02/24/23 Hydrocortisone [Cortef*] 10 mg PO BID* #60 tab 02/24/23 Omeprazole [Prilosec] 1 cap PO DAILY #30 tab 02/24/23 Apixaban [Eliquis] 5 mg PO BID 30 Days #60 tab 01/08/24 Doxycycline Hyclate 100 mg PO BID 3 Days #6 tab 01/08/24 Metoprolol Succinate [Toprol Xl*] 25 mg PO BID 30 Days #60 tab 01/08/24 Amiodarone HCl [Cordarone*] 200 mg PO BID #60 tab 10/11/24 Fluconazole [Diflucan] 100 mg PO DAILY #3 tab 10/11/24 - Past Medical/Surgical History Diabetic: No -: Mayaguez's -: Irritable Bowel Syndrome -: TIA -: Chronic back pain -: hyperlipidemia -: CVA -: hypothyroidism -: Depression -: Early Dementia -: Cholecystectomy -: Appendectomy -: -: Hysterectomy -: Exploratory laparotomy Psychosocial/ Personal History: Patient lives at home with her sister - Family History Mother -: Stroke, Other (see notes) Notes: Asthma. Rheumatoid Arthritis - Social History Smoking Status: Never smoker Alcohol use: No CD- Drugs: No Caffeine use: Yes Place of Residence: Home Review of Systems is unable to be obtained (Patient confused.) Physical Examination - Physical Exam General: Alert, Oriented x1, Mild distress HEENT: Atraumatic, PERRLA, Mucous membr. moist/pink, EOMI, Sclerae nonicteric Neck: Supple, 2+ carotid pulse no bruit, No LAD, Without JVD or thyroid abnormality Respiratory: Clear to auscultation bilaterally, Normal air movement Cardiovascular: No edema, Normal S1 S2 Capillary refill: <2 Seconds Gastrointestinal: Normal bowel sounds, Distended, Tenderness Musculoskeletal: No clubbing, No swelling, No tenderness Integumentary: No rashes, No breakdown Neurological: Normal speech, Normal tone, Normal affect Lymphatics: No axilla or inguinal lymphadenopathy - Studies Laboratory Data (last 24 hrs) 05/23/25 05/23/25 05/23/25 15:46 15:46 15:46 WBC 11.50 H Hgb 11.0 L Hct 33.2 L Plt Count 257 PT 14.1 H INR 1.25 Sodium 134 L Potassium 2.9 L BUN 25 H Creatinine 1.55 H Glucose 124 H Total Bilirubin 0.6 AST 102 H ALT 81 H Alkaline Phosphatase 137 H Assessment and Plan - Plan Syncope Dizziness Generalized weakness --CT head unremarkable for any acute intracranial abnormality. --Echocardiogram pending to assess cardiac structure and functions. --Carotid Doppler pending to rule out any carotid artery stenosis --Will get some orthostatic vital signs. --Cardiology consulted. Recommendations appreciated. --PT eval and treat. Atrial fibrillation with RVR --At time of assessment heart rate fluctuating between the upper 90s and low 100s --Continue amiodarone --Family reported that patient has a Watchman and no longer on Eliquis --Further management per associate media director. Acute encephalopathy --Unclear etiology. --CT head unremarkable for any acute intracranial abnormality --UA negative for UTI --Continue supportive care. Elevated troponin --Echocardiogram pending to assess cardiac structure and function. --Will trend serial troponins Elevated BNP. --Echocardiogram pending to assess LV\valvular functions and wall motion. --Chest x-ray indicates pulmonary vascular congestion. --Continue diuresis with Lasix. --Daily weight and strict I/O. Abdominal pain. History of IBS --CT abdomen unremarkable for any acute findings. --Continue current pain medication regimen and home medications Anxiety disorder\hypothyroidism\Mayaguez's disease\GERD\depression\HLD --Continue home medications. Chronic back pain --Continue current pain medication regimen Hypertension --Patient currently hypotensive --Will hold off on BP meds --Will continue to monitor blood pressure levels History of CVA\TIA --Continue statin. Early dementia --With superimposed delirium. --Continue supportive care DVT prophylaxis with Heparin subQ Discharge Plan: Home Plan to discharge in: Greater than 2 days - Advance Directives Does patient have a Living Will: No Does patient have a Durable POA for Healthcare: No - Code Status/Comfort Care Code Status Assessed: Yes Code Status: Full Code Physician Review: Patient Assessed, Agree with Above Assessment and Plan Critical Care: No
--- NOTE | 2025-05-23 18:55 | RAD REPORT ---
EXAMINATION: US CAROTID DUPLEX CLINICAL INDICATION: , 69 years old. Syncope. TECHNIQUE: Real-time grayscale, color flow and spectral Doppler sonographic images were obtained of t extracranial carotid system using a linear transducer. [id number]. COMPARISON: No prior exam. FINDINGS: RIGHT: Common carotid artery: 40 cm/s Internal carotid artery: 27 cm/s External carotid artery: 34 cm/s Right ICA/CCA ratio: 0.7 Plaque None Vertebral artery Antegrade LEFT: Common carotid artery: 46 cm/s Internal carotid artery: 56 cm/s External carotid artery: 50 cm/s lEFT ICA/CCA ratio: 1.2 Plaque None Vertebral artery Antegrade IMPRESSION: No hemodynamically significant stenosis (greater than 50%) within the extracranial internal carotid a [facility].
--- NOTE | 2025-05-23 19:41 | RAD REPORT ---
EXAMINATION: Head Brain Wo Cont CLINICAL INDICATION: Female, 69 years old.Syncope, AMS TECHNIQUE: Axial CT images from the skull base to the vertex without intravenous contrast. Coronal an d sagittal reformatted images were created from the data set. One or more of the following dose reduction techniques were used: Automated exposure control, adjustment of the mA and/or kV according to patient size, and/or iterative reconstruction. Unless otherwise specified, incidental findings do not require dedicated imaging follow-up. [id number]. COMPARISON: 10/05/2024 FINDINGS: INTRACRANIAL: No acute intracranial hemorrhage. No hydrocephalus. No mass effect or midline shift. Mo derate to advanced chronic small vessel ischemic changes.Mild cerebral atrophy. VASCULATURE: No visualized abnormalities in the arteries or dural venous sinuses. SCALP/SKULL: No calvarial fracture identified. No acute soft tissue abnormality. SINUSES: The visualized paranasal sinuses are mostly clear. No significant mastoid fluid. IMPRESSION: No acute intracranial abnormality.
[2025-05-23] MEDS: HEPARIN 5000 UNIT/ML 1 ML VIAL SQ SCH (21:37)
[2025-05-23] MEDS: FUROSEMIDE 40 MG/4 ML VIAL IV SCH (21:37)
[2025-05-23 23:01] LABS: HDL Cholesterol 91.0 mg/dL (40-60); LDL Cholesterol, Calculated 20.0 mg/dL (<130); LDL Cholesterol,Calc NonReport 20.0
[2025-05-24] MEDS: D5 0.45 NS 1,000 ML IV SCH (00:30)
[2025-05-24 06:07] LABS: Absolute Lymphocytes (CBC) 0.6 K/uL (0.7-4.9); Hematocrit 29.3 % (36.0-45.0); Hemoglobin 9.8 g/dL (12.0-15.0); MCH 24.4 pg (27.0-35.0); MCHC 33.5 g/dL (32.0-36.0); MCV 73.1 fL (80-100); MPV 8.0 fL (7.6-11.3); Nucleated RBC Absolute Count 0.0 (0-0); Nucleated Red Blood Cells % 0.0 % (0-0); RBC Red Blood Cell Count 4.01 M/uL (3.86-4.86); White Blood Count 10.30 thou/uL (4.3-10.9)
[2025-05-24 06:20] LABS: Anion Gap 8.0 mEq/L (5.0-15.0); BUN Blood Urea Nitrogen 24.0 mg/dL (7-18); Glucose Level 122.0 mg/dL (74-106); Magnesium 1.8 mg/dL (1.6-2.4); Potassium 3.0 mEq/L (3.5-5.1)
[2025-05-24] MEDS: POTASSIUM CL SA 10 MEQ TAB PO ONE (08:58)
[2025-05-24] MEDS: MAGNESIUM SULFATE 1 gm IVPB 1 GM/100 ML BAG IV ONE (08:58)
--- NOTE | 2025-05-24 12:46 | P.CNS ---
Date of Consult: 05/24/25 Chief Complaint: Syncope, generalized weakness History of Present Illness: Patient with PMH of atrial fibrillation s/p watchman, HTN presented with syncope, her friend found her sleeping on the ground, not sure for how long, patient can not remeber what happened, actively she denies having chest pain, no palpitations, no SOB. Allergies Penicillins Allergy (Verified 02/20/23 15:29) Shortness of breath Sulfa (Sulfonamide Antibiotics) [Sulfa(Sulfonamide Antibiotics)] Allergy (Verified 02/20/23 15:29) Shortness of breath NSAIDS Adverse Reaction (Uncoded 03/16/19 23:40) Kidney Problems Home medications list reviewed: Yes Home Medications: Duloxetine HCl 120 mg PO DAILY 08/27/20 Estradiol 2 mg PO BEDTIME 08/27/20 Levothyroxine Sodium 25 mcg PO DAILY 08/27/20 Rosuvastatin Calcium 10 mg PO DAILY 08/27/20 clonazePAM [Klonopin*] 0.5 mg PO DAILY PRN 08/27/20 Amitriptyline [Elavil*] 150 mg PO BEDTIME 06/05/21 Oxycodone HCl 10 mg PO TID 04/02/22 ARIPiprazole [Aripiprazole] 2 mg PO BEDTIME #30 tab 02/24/23 Eszopiclone [Lunesta] 2 tab PO BEDTIME #60 tab 02/24/23 Fludocortisone 0.1 mg PO DAILY #30 tab 02/24/23 Hydrocortisone [Cortef*] 10 mg PO BID* #60 tab 02/24/23 Amiodarone HCl [Cordarone*] 200 mg PO BID #60 tab 10/11/24 Aspirin [Aspirin EC 81 MG] 81 mg PO DAILY 05/24/25 Linaclotide [Linzess] 290 mcg PO BEDTIME 05/24/25 Meclizine HCl 25 mg PO TID 05/24/25 Metoprolol Tartrate 50 mg PO BID 05/24/25 Naloxegol Oxalate [Movantik] 25 mg PO DAILY 05/24/25 Omeprazole 20 mg PO DAILY 05/24/25 - Past Medical/Surgical History Diabetic: No -: Luck's -: Irritable Bowel Syndrome -: TIA -: Chronic back pain -: hyperlipidemia -: CVA -: hypothyroidism -: Depression -: Early Dementia -: Cholecystectomy -: Appendectomy -: -: Hysterectomy -: Exploratory laparotomy Psychosocial/ Personal History: Patient lives at home with her sister - Family History Mother Medical History: Stroke, Other (see notes) Notes: Asthma. Rheumatoid Arthritis - Social History Smoking Status: Unknown if ever smoked Alcohol use: No CD- Drugs: No Caffeine use: Yes Place of Residence: Home Review of Systems 10-point ROS is otherwise unremarkable Physical Examination Temp Pulse Resp BP Pulse Ox 99.0 F 88 20 131/76 96 05/24/25 12:00 05/24/25 12:00 05/24/25 12:00 05/24/25 12:00 05/24/25 12:00 General: Alert, In no apparent distress HEENT: Atraumatic, PERRLA, Mucous membr. moist/pink, EOMI, Sclerae nonicteric Neck: Supple, 2+ carotid pulse no bruit, No LAD, Without JVD or thyroid abnormality Respiratory: Clear to auscultation bilaterally, Normal air movement Cardiovascular: Normal S1 S2, Irregular heart rate/rhythm Gastrointestinal: Normal bowel sounds, No tenderness Musculoskeletal: No tenderness Integumentary: No rashes Neurological: Normal gait, Normal speech, Normal tone, Normal affect Lymphatics: No axilla or inguinal lymphadenopathy Laboratory Data (last 24 hrs) 05/23/25 05/23/25 05/23/25 15:46 15:46 15:46 WBC 11.50 H Hgb 11.0 L Hct 33.2 L Plt Count 257 PT 14.1 H INR 1.25 Sodium 134 L Potassium 2.9 L BUN 25 H Creatinine 1.55 H Glucose 124 H Total Bilirubin 0.6 AST 102 H ALT 81 H Alkaline Phosphatase 137 H - Problems (1) Atrial fibrillation Current Visit: No Status: Acute Plan: Patient is currently in AF, rate controlled she is s/p watchman continue her home dose Amiodarone. hold her BB as her BP is borderline continue ASA 81 mg daily continue to monitor on tele (2) Near syncope Current Visit: No Status: Acute Plan: unclear etiology, continue to monitor on tele (3) Troponin level elevated Current Visit: Yes Status: Acute Plan: down trending, most likely type 2 RI from Rhabdo as she was down on the floor for unknown period, advise to check CK level outpatient follow up with cardiology for stress test.
--- NOTE | 2025-05-24 13:28 | P.PN ---
Date of Service: 05/24/25 Subjective: Assuming care today. Resting comfortably in bed. She has no new complaints today. Denies any pain Review of Systems is unable to be obtained (Patient confused.) Physical Examination - Physical Exam General: Alert, Oriented x1, Mild distress HEENT: Atraumatic, PERRLA, Mucous membr. moist/pink, EOMI, Sclerae nonicteric Neck: Supple, 2+ carotid pulse no bruit, No LAD, Without JVD or thyroid abnormality Respiratory: Clear to auscultation bilaterally, Normal air movement Cardiovascular: No edema, Normal S1 S2 Capillary refill: <2 Seconds Gastrointestinal: Normal bowel sounds, Distended, Tenderness Musculoskeletal: No clubbing, No swelling, No tenderness Integumentary: No rashes, No breakdown Neurological: Normal speech, Normal tone, Normal affect Lymphatics: No axilla or inguinal lymphadenopathy - Studies Laboratory Data (last 24 hrs) 05/23/25 05/23/25 05/23/25 15:46 15:46 15:46 WBC 11.50 H Hgb 11.0 L Hct 33.2 L Plt Count 257 PT 14.1 H INR 1.25 Sodium 134 L Potassium 2.9 L BUN 25 H Creatinine 1.55 H Glucose 124 H Total Bilirubin 0.6 AST 102 H ALT 81 H Alkaline Phosphatase 137 H Assessment and Plan - Plan Syncope Dizziness Generalized weakness --CT head unremarkable for any acute intracranial abnormality. --Carotid Doppler negative --Will get some orthostatic vital signs. --Cardiology consulted. Follow-up with outpatient stress test --PT eval and treat. Atrial fibrillation with RVR --At time of assessment heart rate fluctuating between the upper 90s and low 100s --Continue amiodarone at current dose --Family reported that patient has a Watchman and no longer on Eliquis --Appreciate cardiology recommendation Acute encephalopathy --Unclear etiology. --CT head unremarkable for any acute intracranial abnormality --UA negative for UTI --Continue supportive care. Elevated troponin --Echocardiogram pending to assess cardiac structure and function. --Serial troponins are downtrending Elevated BNP. --Chest x-ray indicates pulmonary vascular congestion. --Continue diuresis with Lasix. --Daily weight and strict I/O. Abdominal pain. History of IBS --CT abdomen unremarkable for any acute findings. --Continue current pain medication regimen and home medications Anxiety disorder\hypothyroidism\Blaine's disease\GERD\depression\HLD --Continue home medications. Chronic back pain --Continue current pain medication regimen Hypertension --Patient currently hypotensive --Will hold off on BP meds --Will continue to monitor blood pressure levels History of CVA\TIA --Continue statin. Early dementia --With superimposed delirium. --Continue supportive care DVT prophylaxis with Heparin subQ Discharge Plan: Home Plan to discharge in: Greater than 2 days - Advance Directives Does patient have a Living Will: No Does patient have a Durable POA for Healthcare: No - Code Status/Comfort Care Code Status Assessed: Yes Code Status: Full Code
[2025-05-24 17:04] LABS: Potassium 2.5 mEq/L (3.5-5.1)
[2025-05-24] MEDS: KCL 20 MEQ/100 mL IVPB 20 MEQ/100 ML BAG IV SCH (17:55)
[2025-05-24] MEDS: FENTANYL CITR 100 MCG/2 ML IV PRN (21:09)
[2025-05-24] MEDS: LEVALBUTEROL 0.63 MG/3 ML NEB NEB ONE (23:05)
[2025-05-24] MEDS: METOPROLOL TAR 25 MG TAB PO ONE (23:15)
[2025-05-25] MEDS: AMIODARONE HCL 200 MG TAB PO ONE (00:11)
[2025-05-25] MEDS: ALBUTEROL 2.5 MG/3 ML NEB SOL NEB ONE (00:20)
[2025-05-25] MEDS: FUROSEMIDE 40 MG/4 ML VIAL IV ONE (03:48)
[2025-05-25] MEDS: LORazepam 2 MG/ML VIAL ONE (03:48)
[2025-05-25] MEDS: LORazepam 2 MG/ML VIAL IV ONE (03:54)
[2025-05-25] MEDS ORDERED: AMIODARONE HCL 900 MG in Dextrose 5%-Water 482 ML IV SCH (04:00)
[2025-05-25] MEDS: AMIODARONE HCL 150 MG in D5W 100 ML IV STA (04:16)
[2025-05-25 05:32] LABS: Anion Gap 12.8 mEq/L (5.0-15.0); BUN Blood Urea Nitrogen 16.0 mg/dL (7-18); Glucose Level 128.0 mg/dL (74-106); Magnesium 1.9 mg/dL (1.6-2.4); Potassium 3.8 mEq/L (3.5-5.1)
--- NOTE | 2025-05-25 07:46 | RAD REPORT ---
EXAMINATION: ONE VIEW CHEST XR CLINICAL INDICATION: Cough TECHNIQUE: Frontal chest projection is submitted. Examination is limited by patient positioning and t echnique. COMPARISON: 05/23/2025 FINDINGS: Moderate bilateral pulmonary opacities representing pulmonary edema or pneumonia. Small pleural effus ions. The heart is upper limit of normal in size. No displaced fractures identified. IMPRESSION: Moderate CHF versus volume overload.
[2025-05-25] MEDS: POTASSIUM CL SA 10 MEQ TAB PO ONE (08:55)
[2025-05-25] MEDS: AMIODARONE HCL 200 MG TAB PO SCH ×2 (08:55→22:09)
[2025-05-25] MEDS ORDERED: AMIODARONE HCL 200 MG TAB PO SCH (09:00)
--- NOTE | 2025-05-25 11:37 | P.PN ---
Subjective Date of Service: 05/25/25 Chief Complaint: Syncope, generalized weakness Subjective: No new changes, No C/O voiced, Tolerating diet, Ambulating, Improving Review of Systems 10-point ROS is otherwise unremarkable Physical Examination - Vital Signs Temperature: 97.6 F Blood Pressure: 133/71 Pulse: 119 Respirations: 21 Pulse Ox (%): 99 - Physical Exam General: Alert, In no apparent distress HEENT: Atraumatic, PERRLA, EOMI Neck: Supple, JVD not distended Respiratory: Clear to auscultation bilaterally, Normal air movement Cardiovascular: Regular rate/rhythm, Normal S1 S2 Gastrointestinal: Normal bowel sounds, No tenderness Musculoskeletal: No tenderness Integumentary: No rashes Neurological: Normal speech, Normal tone, Normal affect Lymphatics: No axilla or inguinal lymphadenopathy - Studies Medications List Reviewed: Yes Assessment And Plan - Current Problems (Diagnosis) (1) Atrial fibrillation Current Visit: No Status: Acute Plan: Patient is currently in AF, rate controlled she is s/p watchman Patient is in ST overnight as Amiodarone was continued during her hospital stay. continue Amiodarone 200 mg po BID May resume Metoprolol at 25 mg po BID continue ASA 81 mg daily continue to monitor on tele (2) Near syncope Current Visit: No Status: Acute Plan: unclear etiology, continue to monitor on tele (3) Troponin level elevated Current Visit: Yes Status: Acute Plan: down trending, most likely type 2 [place] from [place] as she was down on the floor for unknown period, advise to check CK level outpatient follow up with cardiology for stress test. Physician Review: Patient Assessed, Agree with Above Assessment and Plan
[2025-05-25] MEDS ORDERED: clonazePAM 0.5 MG TAB PO PRN (14:57)
[2025-05-25] MEDS ORDERED: ESZOPICLONE 1 MG TAB PO PRN (15:01)
--- NOTE | 2025-05-25 15:53 | P.PN ---
Date of Service: 05/25/25 Subjective: Assuming care today. Resting comfortably in bed. She has no new complaints today. Denies any pain Review of Systems is unable to be obtained (Patient confused.) Physical Examination - Physical Exam General: Alert, Oriented x1, Mild distress HEENT: Atraumatic, PERRLA, Mucous membr. moist/pink, EOMI, Sclerae nonicteric Neck: Supple, 2+ carotid pulse no bruit, No LAD, Without JVD or thyroid abnormality Respiratory: Clear to auscultation bilaterally, Normal air movement Cardiovascular: No edema, Normal S1 S2 Capillary refill: <2 Seconds Gastrointestinal: Normal bowel sounds, Distended, Tenderness Musculoskeletal: No clubbing, No swelling, No tenderness Integumentary: No rashes, No breakdown Neurological: Normal speech, Normal tone, Normal affect Lymphatics: No axilla or inguinal lymphadenopathy - Studies Laboratory Data (last 24 hrs) 05/23/25 05/23/25 05/23/25 15:46 15:46 15:46 WBC 11.50 H Hgb 11.0 L Hct 33.2 L Plt Count 257 PT 14.1 H INR 1.25 Sodium 134 L Potassium 2.9 L BUN 25 H Creatinine 1.55 H Glucose 124 H Total Bilirubin 0.6 AST 102 H ALT 81 H Alkaline Phosphatase 137 H Assessment and Plan - Plan Syncope Dizziness Generalized weakness --CT head unremarkable for any acute intracranial abnormality. --Carotid Doppler negative --Will get some orthostatic vital signs. --Cardiology consulted. Follow-up with outpatient stress test --PT eval and treat. Atrial fibrillation with RVR --At time of assessment heart rate fluctuating between the upper 90s and low 100s --Continue amiodarone at current dose --Family reported that patient has a Watchman and no longer on Eliquis --Appreciate cardiology recommendation Acute encephalopathy --Unclear etiology. --CT head unremarkable for any acute intracranial abnormality --UA negative for UTI --Continue supportive care. Elevated troponin --Echocardiogram pending to assess cardiac structure and function. --Serial troponins are downtrending Elevated BNP. --Chest x-ray indicates pulmonary vascular congestion. --Continue diuresis with IV Lasix --Daily weight and strict I/O. Abdominal pain. History of IBS --CT abdomen unremarkable for any acute findings. --Continue current pain medication regimen and home medications Anxiety disorder\hypothyroidism\Winterset's disease\GERD\depression\HLD --Continue home medications. Chronic back pain --Continue current pain medication regimen Hypertension --Patient currently hypotensive --Will hold off on BP meds --Will continue to monitor blood pressure levels History of CVA\TIA --Continue statin. Early dementia --With superimposed delirium. --Continue supportive care DVT prophylaxis with Heparin subQ Discharge Plan: Home Plan to discharge in: Greater than 2 days - Advance Directives Does patient have a Living Will: No Does patient have a Durable POA for Healthcare: No - Code Status/Comfort Care Code Status Assessed: Yes Code Status: Full Code
[2025-05-25] MEDS: ONDANSETRON 4 MG/2 ML VIAL IV PRN (18:30)
[2025-05-25] MEDS: Linaclotide [Linzess] 290 MCG Capsule *PT OWN MED PO SCH (21:00)
[2025-05-25] MEDS: ARIPIPRAZOLE 2 MG PO SCH (21:00)
[2025-05-25] MEDS ORDERED: HOME MED 1 EA UNK (Eszopiclone [Lunesta] 2 MG Tablet) PO SCH (21:00)
[2025-05-25] MEDS: ROSUVASTATIN 10 MG TAB PO SCH (22:09)
[2025-05-25] MEDS: OXYCODONE HCL 5 MG TAB PO SCH (22:09)
[2025-05-25] MEDS: AMITRIPTYLINE 50 MG TAB PO SCH (22:09)
[2025-05-25] MEDS: METOPROLOL TAR 50 MG TAB PO SCH (22:10)
[2025-05-26] MEDS: LEVOTHYROXINE SOD 0.025 MG TAB PO SCH (06:26)
[2025-05-26 06:55] LABS: Anion Gap 9.1 mEq/L (5.0-15.0); BUN Blood Urea Nitrogen 14.0 mg/dL (7-18); Glucose Level 98.0 mg/dL (74-106)
[2025-05-26 06:57] LABS: Potassium 4.1 mEq/L (3.5-5.1)
[2025-05-26 08:08] LABS: Absolute Lymphocytes (CBC) 1.9 K/uL (0.7-4.9); Hematocrit 29.0 % (36.0-45.0); Hemoglobin 9.7 g/dL (12.0-15.0); MCH 24.3 pg (27.0-35.0); MCHC 33.4 g/dL (32.0-36.0); MCV 72.8 fL (80-100); MPV 8.4 fL (7.6-11.3); Nucleated RBC Absolute Count 0.0 (0-0); Nucleated Red Blood Cells % 0.2 % (0-0); RBC Red Blood Cell Count 3.98 M/uL (3.86-4.86); White Blood Count 9.80 thou/uL (4.3-10.9)
[2025-05-26 08:36] LABS: Anisocytosis 1+; Blood Morphology Comment NOTED (NOT SEEN); Microcytosis 1+; White Blood Cell Scan OK (OK)
[2025-05-26] MEDS: DULOXETINE 30 MG CAP PO SCH (08:56)
[2025-05-26] MEDS: HYDROCORTISONE 10 MG TAB PO SCH (08:56)
[2025-05-26] MEDS: SODIUM CHLORIDE 1 GM TAB PO SCH (08:57)
[2025-05-26] MEDS: [UNRECOGNIZED DRUG - OTHER] PO SCH (08:59)
[2025-05-26] MEDS ORDERED: HOME MED 1 EA UNK (Duloxetine Hcl [Duloxetine Hcl] 60 MG Capsule.Dr) PO SCH (09:00)
--- NOTE | 2025-05-26 11:01 | P.PN ---
Subjective Date of Service: 05/26/25 Chief Complaint: Syncope, generalized weakness Subjective: No new changes, No C/O voiced, Tolerating diet, Ambulating, Improving Review of Systems 10-point ROS is otherwise unremarkable Physical Examination - Vital Signs Temperature: 98.0 F Blood Pressure: 100/66 Pulse: 84 Respirations: 18 Pulse Ox (%): 100 - Physical Exam General: Alert, In no apparent distress HEENT: Atraumatic, PERRLA, EOMI Neck: Supple, JVD not distended Respiratory: Clear to auscultation bilaterally, Normal air movement Cardiovascular: Normal S1 S2, Irregular heart rate/rhythm Gastrointestinal: Normal bowel sounds, No tenderness Musculoskeletal: No tenderness Integumentary: No rashes Neurological: Normal speech, Normal tone, Normal affect Lymphatics: No axilla or inguinal lymphadenopathy - Studies Medications List Reviewed: Yes Assessment And Plan - Current Problems (Diagnosis) (1) Atrial fibrillation Current Visit: No Status: Acute Plan: Patient is currently in AF, rate controlled she is s/p watchman Patient is in ST overnight as Amiodarone was continued during her hospital stay. continue Amiodarone 200 mg po BID continue Metoprolol 25 mg po BID continue ASA 81 mg daily continue to monitor on tele (2) Near syncope Current Visit: No Status: Acute Plan: unclear etiology, continue to monitor on tele (3) Troponin level elevated Current Visit: Yes Status: Acute Plan: down trending, most likely type 2 [place] from [place] as she was down on the floor for unknown period, advise to check CK level outpatient follow up with cardiology for stress test. (4) Acute on chronic diastolic heart failure Current Visit: Yes Status: Acute Plan: D/C IV lasix switch to lasix 40 mg po daily for 1 week on discharge then continue lasix 20 mg daily Outpatient follow up with cardiology. Physician Review: Patient Assessed, Agree with Above Assessment and Plan
[2025-05-26] MEDS ORDERED: POLYETHYL GLY 3350 17 GM/DOSE PO PRN (13:20)
--- NOTE | 2025-05-26 14:52 | P.PN ---
Date of Service: 05/26/25 Subjective: No new events overnight. We discussed her getting out of bed more. Family member at bedside. She would like to go home with home health. Denies fevers and chills Review of Systems 10 point review of systems otherwise negative Physical Examination - Physical Exam General: Alert, Oriented x1, Mild distress HEENT: Atraumatic, PERRLA, Mucous membr. moist/pink, EOMI, Sclerae nonicteric Neck: Supple, 2+ carotid pulse no bruit, No LAD, Without JVD or thyroid abnormality Respiratory: Clear to auscultation bilaterally, Normal air movement Cardiovascular: No edema, Normal S1 S2 Capillary refill: <2 Seconds Gastrointestinal: Normal bowel sounds, Distended, Tenderness Musculoskeletal: No clubbing, No swelling, No tenderness Integumentary: No rashes, No breakdown Neurological: Normal speech, Normal tone, Normal affect Lymphatics: No axilla or inguinal lymphadenopathy - Studies Laboratory Data (last 24 hrs) 05/23/25 05/23/25 05/23/25 15:46 15:46 15:46 WBC 11.50 H Hgb 11.0 L Hct 33.2 L Plt Count 257 PT 14.1 H INR 1.25 Sodium 134 L Potassium 2.9 L BUN 25 H Creatinine 1.55 H Glucose 124 H Total Bilirubin 0.6 AST 102 H ALT 81 H Alkaline Phosphatase 137 H Assessment and Plan - Plan Syncope Dizziness Generalized weakness --CT head unremarkable for any acute intracranial abnormality. --Carotid Doppler negative --Orthostatic vital signs within normal limits --Cardiology consulted. Follow-up with outpatient stress test --PT eval and treat. Atrial fibrillation with RVR --Continue amiodarone --Family reported that patient has a Watchman and no longer on Eliquis --Appreciate cardiology recommendation Acute encephalopathy --Resolved --CT head unremarkable for any acute intracranial abnormality --UA negative for UTI --Continue supportive care. Elevated troponin --Echocardiogram pending to assess cardiac structure and function. --Serial troponins are downtrending Elevated BNP. --Chest x-ray indicates pulmonary vascular congestion. --Continue diuresis with IV Lasix --Daily weight and strict I/O. Abdominal pain. History of IBS --CT abdomen unremarkable for any acute findings. --Continue current pain medication regimen and home medications Anxiety disorder\hypothyroidism\Avoyelles's disease\GERD\depression\HLD --Continue home medications. Chronic back pain --Continue current pain medication regimen Hypertension --Patient currently hypotensive --Will hold off on BP meds --Will continue to monitor blood pressure levels History of CVA\TIA --Continue statin. Early dementia --With superimposed delirium. --Continue supportive care DVT prophylaxis with Heparin subQ Discharge Plan: Home with home health Plan to discharge in: Greater than 2 days - Advance Directives Does patient have a Living Will: No Does patient have a Durable POA for Healthcare: No - Code Status/Comfort Care Code Status Assessed: Yes Code Status: Full Code
[2025-05-26] MEDS: METOPROLOL TAR 25 MG TAB PO SCH (17:52)
[2025-05-26] MEDS: OXYCODONE *CR* 10 MG TAB PO PRN (21:09)
[2025-05-26 21:20] VITALS: BMI 29.0
[2025-05-27 09:08] VITALS: O2SAT 96
--- NOTE | 2025-05-27 11:52 | P.DS ---
Admission Date: 05/23/25 Discharge Date: 05/27/25 Disposition: ROUTINE DISCHARGE Discharge Condition: GOOD Reason for Admission: Syncope, generalized weakness Brief History of Present Illness: Patient is a 69-year-old female past medical history significant for A-fib, depression, anxiety disorder, hypothyroidism, GERD, hyperlipidemia, hypertension, Colville's disease, CVA, early dementia, chronic back pain, TIA, IBS who presents with complaint of fall which occurred last night. Patient was found on the floor by family. Patient cannot recall falling but reports episodes of generalized weakness in the last couple of days. Family also reported the patient has been having episodes of dizziness and vertigo in the last couple of days and was placed on meclizine by her PCP. Patient was unable to get up and had to be assisted by her family. Family reported that patient was noted to be confused, lethargic and diaphoretic. At time of assessment patient is alert and oriented x 1, confused and unable to provide any accurate history. Patient however reports nausea and abdominal pain. Patient unable to quantify or pinpoint location of abdominal pain due to confusion. No other signs and symptoms reported. Symptoms are aggravated or relieved by nothing. Patient was brought to the hospital for medical evaluation. Physical Examination - Physical Exam General: Alert, Oriented x1, Mild distress HEENT: Atraumatic, PERRLA, Mucous membr. moist/pink, EOMI, Sclerae nonicteric Neck: Supple, 2+ carotid pulse no bruit, No LAD, Without JVD or thyroid abnormality Respiratory: Clear to auscultation bilaterally, Normal air movement Cardiovascular: No edema, Normal S1 S2 Capillary refill: <2 Seconds Gastrointestinal: Normal bowel sounds, Distended, Tenderness Musculoskeletal: No clubbing, No swelling, No tenderness Integumentary: No rashes, No breakdown Neurological: Normal speech, Normal tone, Normal affect Lymphatics: No axilla or inguinal lymphadenopathy Hospital Course: Assessment and Plan - Plan Syncope Dizziness Generalized weakness --CT head unremarkable for any acute intracranial abnormality. --Carotid Doppler negative --Orthostatic vital signs within normal limits --Cardiology consulted. Follow-up with outpatient stress test --PT eval and treat. Atrial fibrillation with RVR --Continue amiodarone --Family reported that patient has a Watchman and no longer on Eliquis --Appreciate cardiology recommendation Acute encephalopathy --Resolved --CT head unremarkable for any acute intracranial abnormality --UA negative for UTI --Continue supportive care. Elevated troponin --Echocardiogram pending to assess cardiac structure and function. --Serial troponins are downtrending Elevated BNP. --Chest x-ray indicates pulmonary vascular congestion. --Continue diuresis with IV Lasix --Daily weight and strict I/O. Abdominal pain. History of IBS --CT abdomen unremarkable for any acute findings. --Continue current pain medication regimen and home medications Anxiety disorder\hypothyroidism\Bruce's disease\GERD\depression\HLD --Continue home medications. Chronic back pain --Continue current pain medication regimen Hypertension --Patient currently hypotensive --Will hold off on BP meds --Will continue to monitor blood pressure levels History of CVA\TIA --Continue statin. Early dementia --With superimposed delirium. --Continue supportive care DVT prophylaxis with Heparin subQ Discharge Plan: Home with home health Plan to discharge in: Greater than 2 days - Advance Directives Does patient have a Living Will: No Does patient have a Durable POA for Healthcare: No - Code Status/Comfort Care Code Status Assessed: Yes Code Status: Full Code Vital Signs/Physical Exam: Temp Pulse Resp BP Pulse Ox 97.9 F 77 16 106/55 L 96 05/27/25 08:00 05/27/25 09:00 05/27/25 08:00 05/27/25 09:00 05/27/25 10:27 Laboratory Data at Discharge: WBC 9.80 thou/uL (4.3-10.9) 05/26/25 07:48 Hgb 9.7 g/dL (12.0-15.0) L 05/26/25 07:48 Hct 29.0 % (36.0-45.0) L 05/26/25 07:48 Plt Count 175 thou/uL (152-406) 05/26/25 07:48 PT 14.1 SECONDS (10-13.0) H 05/23/25 15:46 INR 1.25 05/23/25 15:46 Sodium 132 mEq/L (136-145) L 05/26/25 06:06 Potassium 4.1 mEq/L (3.5-5.1) 05/26/25 06:06 BUN 14 mg/dL (7-18) 05/26/25 06:06 Creatinine 0.92 mg/dL (0.55-1.02) 05/26/25 06:06 Glucose 98 mg/dL (74-106) 05/26/25 06:06 Phosphorus 3.5 mg/dL (2.5-4.9) 05/24/25 05:50 Magnesium 1.9 mg/dL (1.6-2.4) 05/25/25 05:10 Total Bilirubin 0.6 mg/dL (0.2-1.0) 05/23/25 15:46 AST 102 U/L (15-37) H 05/23/25 15:46 ALT 81 U/L (13-56) H 05/23/25 15:46 Alkaline Phosphatase 137 U/L (45-117) H 05/23/25 15:46 Triglycerides 69 mg/dL (<150) 05/23/25 22:20 Cholesterol 125 mg/dL (<200) 05/23/25 22:20 HDL Cholesterol 91 mg/dL (40-60) H 05/23/25 22:20 Cholesterol/HDL Ratio 1.37 05/23/25 22:20 Home Medications: Duloxetine HCl 120 mg PO DAILY 08/27/20 Estradiol 2 mg PO BEDTIME 08/27/20 Levothyroxine Sodium 25 mcg PO DAILY 08/27/20 Rosuvastatin Calcium 10 mg PO DAILY 08/27/20 clonazePAM [Klonopin*] 0.5 mg PO DAILY PRN 08/27/20 Amitriptyline [Elavil*] 150 mg PO BEDTIME 06/05/21 Oxycodone HCl 10 mg PO TID 04/02/22 ARIPiprazole [Aripiprazole] 2 mg PO BEDTIME #30 tab 02/24/23 Eszopiclone [Lunesta] 2 tab PO BEDTIME #60 tab 02/24/23 Fludocortisone 0.1 mg PO DAILY #30 tab 02/24/23 Hydrocortisone [Cortef*] 10 mg PO BID* #60 tab 02/24/23 Aspirin [Aspirin EC 81 MG] 81 mg PO DAILY 05/24/25 Linaclotide [Linzess] 290 mcg PO BEDTIME 05/24/25 Meclizine HCl 25 mg PO TID 05/24/25 Naloxegol Oxalate [Movantik] 25 mg PO DAILY 05/24/25 Omeprazole 20 mg PO DAILY 05/24/25 Amiodarone HCl [Cordarone*] 200 mg PO BID 30 Days #60 tab 05/27/25 Metoprolol Tartrate [Lopressor*] 25 mg PO BID 6AM 6PM 30 Days #60 tab 05/27/25 predniSONE [Deltasone] 20 mg PO DAILY 30 Days #30 tab 05/27/25 New Medications: Amiodarone HCl [Cordarone*] 200 mg PO BID 30 Days #60 tab Metoprolol Tartrate [Lopressor*] 25 mg PO BID 6AM 6PM 30 Days #60 tab predniSONE [Deltasone] 20 mg PO DAILY 30 Days #30 tab Followup: Barbara Webster FNP [Primary Care Provider] -
[2025-05-27 12:16] VITALS: BP 129/58; TEMP 98
--- NOTE | 2025-05-29 13:01 | ECHO ---
HEIGHT: 5 ft 2 in WEIGHT: 159 lb 0 oz DATE OF STUDY: 05/24/[address]: Palma Thompson 2-DIMENSIONAL: YES M.MODE: YES DOPPLER: YES COLOR FLOW: YES TDS: NO PORTABLE: YES DEFINITY: NO BUBBLE STUDY: NO DIAGNOSIS: SYNCOPE CARDIAC HISTORY: CATHERIZATION: NO SURGERY: NO PROSTHETIC VALVE: NO PACEMAKER: NO MEASUREMENTS (cm) DIASTOLIC (NORMALS) SYSTOLIC (NORMALS) IVSd 1.2 (0.6-1.2) LA Diam 4.0 (1.9-4.0) LVEF 55-60% LVIDd 5.1 (3.5-5.7) LVIDs 3.7 (2.0-3.5) %FS 28% LVPWd 1.2 (0.6-1.2) Ao Diam 2.6 (2.0-3.7) 2 DIMENSIONAL ASSESSMENT: RIGHT ATRIUM: NORMAL LEFT ATRIUM: MODERATELY DILATED RIGHT VENTRICLE: NORMAL LEFT VENTRICLE: NORMAL TRICUSPID VALVE: MILD TRICUSPID REGURGITATION MITRAL VALVE: MILD MITRAL REGURGITATION PULMONIC VALVE: NORMAL AORTIC VALVE: NORMAL PERICARDIAL EFFUSION: NONE AORTIC ROOT: NORMAL LEFT VENTRICULAR WALL MOTION: NORMAL. DOPPLER/COLOR FLOW: DIASTOLIC DYSFUNCTION. COMMENTS: 1. NORMAL LEFT VENTRICULAR SYSOLIC FUNCTION. LEFT VENTRICULAR EJECTION FRACTION 55-60%. NORMAL WALL MOTION. 2. DIASTOLIC DYSFUNCTION. TECHNOLOGIST: MICHELLE RENDON
== END 2025-05-27 15:20 | disposition home or self-care (01) | DRG 280 ==
LOC: ER 15:08 → ERHOLD 17:53 → 2ND 19:48
PROVIDERS: ADMIT Hospitalist; ATTEND Family Medicine
PROC: 5A09457 Assistance with Respiratory Ventilation, 24-96 Consecutive Hours, Continuous Positive Airway Pressure (ICD-10-PCS; principal; 2025-05-25)
DX: I48.19 Other persistent atrial fibrillation (principal); I50.33 Acute on chronic diastolic (congestive) heart failure; I21.A1 Myocardial infarction type 2; E27.2 Addisonian crisis; G93.40 Encephalopathy, unspecified; F03.94 Unspecified dementia, unspecified severity, with anxiety; F03.93 Unspecified dementia, unspecified severity, with mood disturbance; F05 Delirium due to known physiological condition; I11.0 Hypertensive heart disease with heart failure; R55 Syncope and collapse; E78.5 Hyperlipidemia, unspecified; E03.9 Hypothyroidism, unspecified; G89.29 Other chronic pain; M54.9 Dorsalgia, unspecified; K58.9 Irritable bowel syndrome, unspecified; K21.9 Gastro-esophageal reflux disease without esophagitis; Z88.0 Allergy status to penicillin; Z88.2 Allergy status to sulfonamides; Z79.82 Long term (current) use of aspirin; Z90.49 Acquired absence of other specified parts of digestive tract; Z86.73 Personal history of transient ischemic attack (TIA), and cerebral infarction without residual deficits; Z79.890 Hormone replacement therapy; Z79.899 Other long term (current) drug therapy; Z79.01 Long term (current) use of anticoagulants; Z90.710 Acquired absence of both cervix and uterus; Z79.52 Long term (current) use of systemic steroids
CPT/HCPCS: 36415; 51702; 70450; 71045; 74177; 80048; 80061; 80076; 81001; 82550; 82947; 83036; 83735; 83880; 84100; 84132; 84439; 84443; 84484; 85025; 85610; 87040; 93005; 93306; 93880; 94640; 94660; 94760; 96361; 96365; 96366; 96367; 96375; 97110; 97161; 97530; 99285; J0744; J1644; J1720; J1938; J2405; J3010; J3475; J3480; J7030; J7613; J7799; Q9967

== ENCOUNTER 2025-07-07 14:48 | Emergency (ER) | payer OTHER ==
--- OUTSIDE RECORDS SUMMARY | 2025-07-07 14:54 | XMS REPORT | Continuity of Care Document ---
Author Name Unknown Address [address] [facility] [place] [address] [facility] Address [address] [facility] [address] [place] [address] Care Team Providers Care Lab Assistant Name Role Phone Josie Hilario Primary Care Physician [phone] Gavin Howe Attending Clinician Unavailable KARINA WHIPPLE Attending Clinician Unavailable KARINA WHIPPLE Attending Clinician Unavailable Erasmo Garcia Attending Clinician Lizbeth Sherman MD Attending Clinician [phone] Doctor Unassigned, [place] Attending Clinician Jolanta Su MD Attending Clinician [phone] Radiology Attending Clinician Unavailable RADIOLOGY Attending Clinician Unavailable LIZBETH CARDENAS Attending Clinician Unavailable Lab, Ang - Db Attending Clinician Unavailable Lizbeth Cardenas MD Attending Clinician [phone] Jolanta Lee MD Attending Clinician [phone] JOLANTA LEE Attending Clinician Unavailable JERONIMO MANZANO Attending Clinician Unavailable Lab, Ang - Db Attending Clinician Unavailable Radiology Attending Clinician Unavailable Doctor Unassigned, [place] Attending Clinician Ирина Carlos Attending Clinician [phone] ИРИНА ORTIZ Attending Clinician Unavailable VIKKI DONATO Attending Clinician UnavailVikki Day MD Attending Clinician [phone], [facility] Attending Clinician Unavailable Unknown, Attending Attending Clinician Unavailab CARLITA Fajardo Attending Clinician Unavailable Jesus Newman MD Attending Clinician [phone] JESUS NEWMAN Attending Clinician Unavaildora Mcdonnell MD, Marychuy Ferreira Attending Clinician Unakori Pateliaz RD, Joyce Attending Clinician [phone] Physician, No Primary or Family Admitting Clinic agus Unavailable Gavin Howe Admitting Clinician Unavailable JOSIE HILARIO Admitting Clinician Unavailable ИРИНА ORTIZ Admitting Clinician Unavailable Payers Payer Name Policy Type Policy Number Effective Date Expirati on Date Source [facility] MEDICARE ADVANTAGE [id number] 2021 00:00:00 2024 00:00:00 [facility] MEDICARE COMPLETE CHOICE [id number] 2019 00:00:00 Problems Condition Name Condition Details Condition Category Status Onset Date Resolution Date Last Treatment Date Treating Clinician Comments Source Age-relate d osteoporos is without current pathologic al fracture Age-relate d osteoporos is without current pathologic al fracture Disease Active 07-01 00:00: 00 [facility] Subclinica l hypothyroi dism Subclinica l hypothyroi dism Disease Active 07-01 00:00: 00 [facility] Prediabete s Prediabete s Disease Active 07-01 00:00: 00 [facility] 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 01-11 00:00: 00 [facility] Chest pain Chest pain Disease Active 01-11 00:00: 00 [facility] Obesity (BMI 30-39.9) Obesity (BMI 30-39.9) Disease Active 2-19 00:00: 00 [facility] 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 Disease Active 06-09 00:00: 00 [facility] Abnormal thyroid blood test Abnormal thyroid blood test Disease Active 06-09 00:00: 00 [facility] [place] disease [place] disease Disease Active 06-09 00:00: 00 [facility] Allergies, Adverse Reactions, Alerts Allergy Name Allergy Type Status Severity Reaction(s) Onset Date Inactive Date Treating Clinician Comments Source No Known Allergie s DA Active U 06-21 00:00: 00 [facility] No Known Allergie s DA Active U 08-08 00:00: 00 [facility] Penicill ins Propensi ty to adverse reaction s Active Anaphylaxis 2006-11 00:00: 00 [facility] Sulfa (Sulfona mide Antibiot ics) Propensi ty to adverse reaction s Active Anaphylaxis 2006-11 00:00: 00 [facility] Penicill ins Propensi ty to adverse reaction s Active Anaphylaxis 2006-11 00:00: 00 [facility] PENICILL INS Drug Class Active Anaphylaxis 2006-11 00:00: 00 [facility] SULFA (SULFONA MIDE ANTIBIOT ICS) Drug Class Active Anaphylaxis 2006-11 00:00: 00 [facility] Penicill ins Propensi ty to adverse reaction s Active Anaphylaxis 2006-11 00:00: 00 [facility] Penicill ins Propensi ty to adverse reaction s Active Anaphylaxis 2006-11 00:00: 00 [facility] Social History Social Habit Start Date Stop Date Quantity Comments Source History of tobacco use Current smoker [facility] Gender identity [facility] Alcoholic beverage intake 2023-09-29 00:00:2023-09-29 00:00:00 Lifetime non-drinker (finding) [facility] Alcohol intake 2023-09-29 00:00:00 2023-09-29 00:00:00 Lifetime non-drinker (finding) [facility] History of Social function 2023-09-08 00:00:00 2023-09-08 00:00:00 [facility] Exposure to SARS-CoV-2 (event) 2023-03-16 00:00:00 2023-03-26 11:31:00 Not sure [facility] Tobacco use and exposure 2021-05-03 00:00:00 2021-05-03 00:00:00 Smokeless tobacco non-user [facility] Sex assigned at 1955 00:00:00 1955 00:00:00 [facility] Smoking Status Start Date Stop Date Source Ex-smoker 2021-05-03 00:00:00 2021-05-03 [facility] Medications Ordered Medication Name Filled Medication Name Start Date Stop Date Current Medication? Ordering Clinician Indication Dosage Frequency Signature (SIG) Comments Components Source hydrocortis one 10 mg tablet 05-29 00:00: 00 Yes [id number] TAKE 1 AND 1/2 TABLET BY MOUTH EVERY MORNING AND 1/2 TABLET BY MOUTH EVERY DAY AT 2 PM. TAKE EXTRA TABLET ON SICK DAYS [facility] levothyroxi ne 25 mcg tablet 04-26 00:00: 00 Yes [id number] 25ug TAKE 1 TABLET BY MOUTH EVERY MORNING [facility] FLUDROCORTI SONE 0.1 mg tablet 03-23 00:00: 00 Yes [id number] .1mg TAKE 1 TABLET BY MOUTH IN THE MORNING [facility] alendronate 70 mg tablet 03-08 00:00: 00 Yes [id number] 70mg Take 1 tablet by mouth weekly. [facility] hydrocortis one 10 mg tablet 03-08 00:00: 00 05-29 00:00 :00 No [id number] TAKE 1.5 TABLETS BY MOUTH EVERY MORNING AND 1/2 TABLET AT 2 PM EVERY DAY AND TAKE AN EXTRA TABLET ON SICK DAYS [facility] levothyroxi ne 25 mcg tablet 03-08 00:00: 00 04-26 00:00 :00 No [id number] 25ug Take 1 tablet by mouth every morning. [facility] fludrocorti sone 0.1 mg tablet 03-08 00:00: 00 03-23 00:00 :00 No [id number] .1mg Take 1 tablet by mouth in the morning. [facility] levothyroxi ne 25 mcg tablet 02-21 00:00: 00 03-08 00:00 :00 No [id number] 25ug TAKE 1 TABLET BY MOUTH EVERY MORNING [facility] LINZESS 290 mcg Cap 2022-11 00:00: 00 Yes [id number] 290ug TAKE 1 CAPSULE BY MOUTH IN THE MORNING [facility] BABY ASPIRIN ORAL 2022-11 13:10: 10 Yes 81mg Take 81 mg by mouth. [facility] rosuvastati n 10 mg tablet 2022-11 13:10: 10 Yes 10mg Take 1 tablet by mouth at bedtime. [facility] DULoxetine 60 mg capsule 2022-11 13:10: 10 Yes 60mg Take 1 capsule by mouth in the morning. [facility] estradiol 2 mg tablet 2022-11 13:10: 10 Yes 2mg Take 1 tablet by mouth in the morning. [facility] melatonin 10 mg Tab 2022-11 13:10: 10 Yes 10mg Take 10 mg by mouth. [facility] clonazePAM 2 mg tablet 2022-11 13:10: 10 Yes 2mg Take 1 tablet by mouth in the morning and 1 tablet at noon and 1 tablet in the evening. [facility] benzonatate (TESSALON PERLES) 100 mg capsule 2022-11 00:00: 00 Yes [id number] Take 1-2 capsules three times a day as needed for cough. [facility] promethazin e-dextromet horphan 6.25-15 mg/5 mL syrup 2022-11 00:00: 00 Yes [id number] 5mL Take 5 mL by mouth 4 (four) times daily as needed for Cough. [facility] linaCLOtide (LINZESS) 290 mcg Cap 2022-11 00:00: 00 10-30 00:00 :00 No [id number] 290ug Take 1 capsule by mouth in the morning. [facility] alendronate 70 mg tablet 2022-11 00:00: 00 03-08 00:00 :00 No [id number] 70mg Take 1 tablet by mouth weekly. [facility] fludrocorti sone 0.1 mg tablet 2022-11 00:00: 00 03-08 00:00 :00 No [id number] .1mg Take 1 tablet by mouth in the morning. [facility] hydrocortis one 10 mg tablet 2022-11 00:00: 00 03-08 00:00 :00 No [id number] TAKE 1.5 TABLETS BY MOUTH EVERY MORNING AND 1/2 TABLET AT 2 PM EVERY DAY AND TAKE AN EXTRA TABLET ON SICK DAYS [facility] levothyroxi ne 25 mcg tablet 2022-11 00:00: 00 02-21 00:00 :00 No [id number] 25ug Take 1 tablet by mouth every morning. [facility] hydrocortis one 10 mg tablet 06-22 00:00: 00 09-08 00:00 :00 No [id number] TAKE 1.5 TABLETS BY MOUTH EVERY MORNING AND 1/2 TABLET AT 2 PM EVERY DAY AND TAKE AN EXTRA TABLET ON SICK DAYS [facility] ALENDRONATE 70 mg tablet -17 00:00: 00 09-08 00:00 :00 No [id number] 70mg TAKE 1 TABLET BY MOUTH WEEKLY [facility] FLUDROCORTI SONE 0.1 mg tablet 5-04 00:00: 00 09-08 00:00 :00 No [id number] .1mg TAKE 1 TABLET BY MOUTH IN THE MORNING [facility] LEVOTHYROXI NE 25 mcg tablet 0 5-04 00:00: 00 09-08 00:00 :00 No [id number] 25ug TAKE 1 TABLET BY MOUTH EVERY MORNING [facility] alendronate 70 mg tablet 4-26 00:00: 00 05-09 00:00 :00 No [id number] 70mg TAKE 1 TABLET BY MOUTH WEEKLY [facility] hydrocortis one 10 mg tablet 4- 00:00: 00 06-22 00:00 :00 No [id number] TAKE 1.5 TABLETS BY MOUTH EVERY MORNING AND 1/2 TABLET AT 2 PM EVERY DAY AND TAKE AN EXTRA TABLET ON SICK DAYS [facility] hydrocortis one 10 mg tablet 2021-11 2- 00:00: 00 02-23 00:00 :00 No [id number] TAKE 1.5 TABLETS BY MOUTH EVERY MORNING AND 1/2 TABLET AT 2 PM EVERY DAY AND TAKE AN EXTRA TABLET ON SICK DAYS [facility] LEVOTHYROXI NE 25 mcg tablet 2021-11 00:00: 00 03-26 00:00 :00 No [id number] 25ug TAKE 1 TABLET BY MOUTH EVERY MORNING [facility] fludrocorti sone 0.1 mg tablet 07-01 00:00: 00 03-26 00:00 :00 No [id number] .1mg Take 1 tablet by mouth in the morning. [facility] alendronate 70 mg tablet - 00:00: 00 03-18 00:00 :00 No [id number] 70mg Take 1 tablet by mouth weekly. [facility] fludrocorti sone 0.1 mg tablet - 00:00: 00 07-01 00:00 :00 No [id number] .2mg Take 2 tablets by mouth in the morning. [facility] LEVOTHYROXI NE 25 mcg tablet 6-18 00:00: 00 10-20 00:00 :00 No [id number] 25ug TAKE 1 TABLET BY MOUTH EVERY MORNING [facility] hydrocortis one 10 mg tablet 05-04 00:00: 00 11-02 00:00 :00 No [id number] TAKE 2 TABLETS BY MOUTH EVERY MORNING AND 1 TABLET AT 2 PM EVERY DAY AND TAKE AN EXTRA TABLET ON SICK DAYS [facility] OZEMPIC 0.25 mg or 0.5 mg(2 mg/1.5 mL) PnIj 04-14 00:00: 00 Yes [facility] ARIPiprazol e 2 mg tablet 04-14 00:00: 00 Yes [facility] LINZESS 145 mcg capsule 04-14 00:00: 00 09-29 00:00 :00 No [facility] rosuvastati n 10 mg tablet 2020-11 10:28: 48 Yes 10mg Take 1 tablet by mouth at bedtime. [facility] melatonin 10 mg Tab 2020-11 10:28: 00 Yes 10mg Take 10 mg by mouth. [facility] DULoxetine 60 mg capsule 2020-11 10:27: 59 Yes 60mg Take 1 capsule by mouth in the morning. [facility] estradiol 2 mg tablet 2020-11 10:27: 59 Yes 2mg Take 1 tablet by mouth in the morning. [facility] BABY ASPIRIN ORAL 2020-11 10:27: 58 Yes 81mg Take 81 mg by mouth. [facility] clonazePAM 2 mg tablet 2020-11 10:27: 58 Yes 2mg Take 1 tablet by mouth in the morning and 1 tablet at noon and 1 tablet in the evening. [facility] metoprolol tartrate 37.5 mg Tab 2020-11 00:00: 00 Yes 37.5mg Take 37.5 mg by mouth daily. [facility] ALENDRONATE 70 mg tablet 2020-11 00:00: 00 07-01 00:00 :00 No [id number] 70mg TAKE 1 TABLET BY MOUTH WEEKLY [facility] levothyroxi ne 25 mcg tablet 2018-11 00:00: 00 03-26 00:00 :00 No [id number] 25ug Take 1 tablet by mouth every morning. [facility] hydrocortis one 10 mg tablet 07-26 00:00: 00 06-15 00:00 :00 No [id number] TAKE TWO TABLETS BY MOUTH IN THE MORNING AND ONE TABLET AT 2:00PM, take extra on sick days [facility] tiZANidine 2 mg tablet 06-10 00:00: 00 02-05 00:00 :00 No [facility] azithromyci n 250 mg tablet 01-12 00:00: 00 05-03 00:00 :00 No One tablet once daily [facility] Oxycodone 10 mg Tab 12-31 00:00: 00 Yes [facility] zaleplon 5 mg capsule 12-03 00:00: 00 Yes [facility] fludrocorti sone 0.1 mg tablet 06-09 00:00: 00 02-05 00:00 :00 No [id number] One tablet three times a week [facility] proMETHazin e 25 mg tablet 06-04 00:00: 00 05-03 00:00 :00 No 25mg Take 25 mg by mouth every 6 (six) hours. [facility] amitriptyli ne 100 mg tablet 05-23 00:00: 00 Yes 200mg Take 2 tablets by mouth at bedtime. [facility] cyclobenzap rine 10 mg tablet 05-23 00:00: 00 05-03 00:00 :00 No 10mg Take 10 mg by mouth as needed. [facility] omeprazole 20 mg capsule 15 00:00: 00 Yes 20mg Take 1 capsule by mouth in the morning. [facility] ALPRAZolam 1 mg tablet 03-17 00:00: 00 Yes 1mg Take 1 tablet by mouth in the morning. [facility] Immunizations Ordered Immunization Name Filled Immunization Name Date Status Comments Source Influenza Virus Vaccine Quad IM 3+ YRS 2024-03-08 13:00:00 Completed [facility] SARS-COV-2 COVID-19 PFIZER VACCINE 2024-03-08 13:00:00 Completed [facility] Influenza Virus Vaccine Quad IM 3+ YRS 2024-02-22 00:00:00 Completed [facility] SARS-COV-2 COVID-19 PFIZER VACCINE 2024-02-22 00:00:00 Completed [facility] Influenza Virus Vaccine Quad IM 3+ YRS 2023-10-30 00:00:00 Completed [facility] SARS-COV-2 COVID-19 PFIZER VACCINE 2023-10-30 00:00:00 Completed [facility] Influenza Virus Vaccine Quad IM 3+ YRS 2023-10-30 00:00:00 Completed [facility] SARS-COV-2 COVID-19 PFIZER VACCINE 2023-10-30 00:00:00 Completed [facility] Influenza Virus Vaccine Quad IM 3+ YRS 2023-09-29 13:43:28 Completed [facility] SARS-COV-2 COVID-19 PFIZER VACCINE 2023-09-29 13:43:28 Completed [facility] Influenza Virus Vaccine Quad IM 3+ YRS 2023-09-29 13:00:00 Completed [facility] SARS-COV-2 COVID-19 PFIZER VACCINE 2023-09-29 13:00:00 Completed [facility] Influenza Virus Vaccine Quad IM 3+ YRS 2023-09-08 10:00:00 Completed [facility] SARS-COV-2 COVID-19 PFIZER VACCINE 2023-09-08 10:00:00 Completed [facility] Influenza Virus Vaccine Quad IM 3+ YRS 2023-09-08 09:00:00 Completed [facility] SARS-COV-2 COVID-19 PFIZER VACCINE 2023-09-08 09:00:00 Completed [facility] SARS-COV-2 COVID-19 PFIZER VACCINE 2021-02-04 00:00:00 Completed [facility] SARS-COV-2 COVID-19 PFIZER VACCINE 2021-02-04 00:00:00 Completed [facility] SARS-COV-2 COVID-19 PFIZER VACCINE 2021-02-04 00:00:00 Completed [facility] SARS-COV-2 COVID-19 PFIZER VACCINE 2021-02-04 00:00:00 Completed [facility] SARS-COV-2 COVID-19 PFIZER VACCINE 2021-02-04 00:00:00 Completed [facility] SARS-COV-2 COVID-19 PFIZER VACCINE 2021-02-04 00:00:00 Completed [facility] SARS-COV-2 COVID-19 PFIZER VACCINE 2021-02-04 00:00:00 Completed [facility] SARS-COV-2 COVID-19 PFIZER VACCINE 2021-02-04 00:00:00 Completed [facility] SARS-COV-2 COVID-19 PFIZER VACCINE 2021-02-04 00:00:00 Completed [facility] SARS-COV-2 COVID-19 PFIZER VACCINE 2021-02-04 00:00:00 Completed [facility] SARS-COV-2 COVID-19 PFIZER VACCINE 2021-02-04 00:00:00 Completed [facility] SARS-COV-2 COVID-19 PFIZER VACCINE 2021-02-04 00:00:00 Completed [facility] SARS-COV-2 COVID-19 PFIZER VACCINE 2021-02-04 00:00:00 Completed [facility] SARS-COV-2 COVID-19 PFIZER VACCINE 2021-02-04 00:00:00 Completed [facility] SARS-COV-2 COVID-19 PFIZER VACCINE 2021-02-04 00:00:00 Completed [facility] SARS-COV-2 COVID-19 PFIZER VACCINE 2021-01-14 00:00:00 Completed [facility] SARS-COV-2 COVID-19 PFIZER VACCINE 2021-01-14 00:00:00 Completed [facility] SARS-COV-2 COVID-19 PFIZER VACCINE 2021-01-14 00:00:00 Completed [facility] SARS-COV-2 COVID-19 PFIZER VACCINE 2021-01-14 00:00:00 Completed [facility] SARS-COV-2 COVID-19 PFIZER VACCINE 2021-01-14 00:00:00 Completed [facility] SARS-COV-2 COVID-19 PFIZER VACCINE 2021-01-14 00:00:00 Completed [facility] SARS-COV-2 COVID-19 PFIZER VACCINE 2021-01-14 00:00:00 Completed [facility] SARS-COV-2 COVID-19 PFIZER VACCINE 2021-01-14 00:00:00 Completed [facility] SARS-COV-2 COVID-19 PFIZER VACCINE 2021-01-14 00:00:00 Completed [facility] SARS-COV-2 COVID-19 PFIZER VACCINE 2021-01-14 00:00:00 Completed [facility] SARS-COV-2 COVID-19 PFIZER VACCINE 2021-01-14 00:00:00 Completed [facility] SARS-COV-2 COVID-19 PFIZER VACCINE 2021-01-14 00:00:00 Completed [facility] SARS-COV-2 COVID-19 PFIZER VACCINE 2021-01-14 00:00:00 Completed [facility] SARS-COV-2 COVID-19 PFIZER VACCINE 2021-01-14 00:00:00 Completed [facility] SARS-COV-2 COVID-19 PFIZER VACCINE 2021-01-14 00:00:00 Completed [facility] Influenza Virus Vaccine Quad IM 32018-01-12 00:00:00 Completed [facility] Influenza Virus Vaccine Quad IM 32018-01-12 00:00:00 Completed [facility] Influenza Virus Vaccine Quad IM 32018-01-12 00:00:00 Completed [facility] Influenza Virus Vaccine Quad IM 2018-01-12 00:00:00 Completed [facility] Influenza Virus Vaccine Quad IM 32018-01-12 00:00:00 Completed [facility] Influenza Virus Vaccine Quad IM 32018-01-12 00:00:00 Completed [facility] Influenza Virus Vaccine Quad IM 32018-01-12 00:00:00 Completed [facility] Influenza Virus Vaccine Quad IM 32018-01-12 00:00:00 Completed [facility] Influenza Virus Vaccine Quad IM 32018-01-12 00:00:00 Completed [facility] Influenza Virus Vaccine Quad IM 3+ YRS 2018-01-12 00:00:00 Completed [facility] Influenza Virus Vaccine Quad IM 3+ YRS 2018-01-12 00:00:00 Completed [facility] Influenza Virus Vaccine Quad IM 3+ YRS 2018-01-12 00:00:00 Completed [facility] Influenza Virus Vaccine Quad IM 3+ YRS 2018-01-12 00:00:00 Completed [facility] Influenza Virus Vaccine Quad IM 3+ YRS 2018-01-12 00:00:00 Completed [facility] Influenza Virus Vaccine Quad IM 3+ YRS 2018-01-12 00:00:00 Completed [facility] Vital Signs Vital Name Observation Time Observation Value Comments S ource Systolic blood pressure 2024-09-20 16:49:00 135 mm[Hg] [facility] Diastolic blood pressure 2024-09-20 16:49:00 88 mm[Hg] [facility] Heart rate 2024-09-20 16:49:00 95 /min [facility] Respiratory rate 2024-09-20 16:49:00 18 /min [facility] Body height 2024-09-20 16:49:00 157.5 cm [facility] Body weight 2024-09-20 16:49:00 72.32 kg [facility] BMI 2024-09-20 16:49:00 29.16 kg/m2 [facility] Oxygen saturation in Arterial blood by Pulse oximetry 2024-09-20 16:49:00 96 /min [facility] Systolic blood pressure 2024-03-08 17:57:00 150 mm[Hg] [facility] Diastolic blood pressure 2024-03-08 17:57:00 84 mm[Hg] [facility] Body height 2024-03-08 17:47:00 157.5 cm [facility] Body weight 2024-03-08 17:47:00 74.617 kg [facility] BMI 2024-03-08 17:47:00 30.09 kg/m2 [facility] Systolic blood pressure 2023-09-29 19:09:00 136 mm[Hg] [facility] Diastolic blood pressure 2023-09-29 19:09:00 70 mm[Hg] [facility] Heart rate 2023-09-29 19:09:00 66 /[facility] temperature 2023-09-29 19:09:00 36.5 Harriet [facility] Body height 2023-09-29 19:09:00 157.5 cm [facility] Body weight 2023-09-29 19:09:00 75.342 kg [facility] BMI 2023-09-29 19:09:00 30.38 kg/m2 [facility] Oxygen saturation in Arterial blood by Pulse oximetry 2023-09-29 19:09:00 97 /min [facility] Systolic blood pressure 2023-09-08 14:13:00 141 mm[Hg] [facility] Diastolic blood pressure 2023-09-08 14:13:00 84 mm[Hg] [facility] Heart rate 2023-09-08 14:13:00 82 /min [facility] Body height 2023-09-08 14:13:00 157.5 cm [facility] Body weight 2023-09-08 14:13:00 77.52 kg Univ [facility] BMI 2023-09-08 14:13:00 31.26 kg/m2 [facility] Oxygen saturation in Arterial blood by Pulse oximetry 2023-09-08 14:13:00 95 /min [facility] Systolic blood pressure 2022-07-01 15:16:00 139 mm[Hg] [facility] Diastolic blood pressure 2022-07-01 15:16:00 65 mm[Hg] [facility] Heart rate 2022-07-01 15:16:00 82 /min [facility] Body height 2022-07-01 15:16:00 157.5 cm [facility] Body weight 2022-07-01 15:16:00 81.874 kg [facility] BMI 2022-07-01 15:16:00 33.01 kg/m2 [facility] Oxygen saturation in Arterial blood by Pulse oximetry 2022-07-01 15:16:00 94 /min [facility] Procedures Procedure Date / Time Performed Performing Clinician Source DEXA AXIAL (HIP AND SPINE) 2025-03-03 20:16:01 Barbara Webster [facility] POCT HEMOGLOBIN A1C TEST 2024-09-20 16:54:00 Mehul Cardenas [facility] [id number] 2024-08-10 00:00:00 RAMYA [facility] POCT HEMOGLOBIN A1C TEST 2024-03-08 17:58:00 Mehul Cardenas [facility] ASSIGNMENT OF BENEFITS 2023-03-26 16:20:55 Docto r Unassigned, [place] [facility] PATIENT QUESTIONNAIRE 2022-07-01 05:01:00 Doctor Unassigned, [place] [facility] Encounters Start Date/Time End Date/Time Encounter Type Admission Type Attending Clinicians Care Facility Care Department Encounter ID Source 2024-06-28 10:00:00 Inpatient Gavin Shaikh [facility] OUTD [id number] [facility] 2022-06-17 16:29:12 Outpatient [facility] [id number] [facility] 2022-06-05 09:43:10 Outpatient [facility] [id number] [facility] 2022-03-01 21:32:02 Outpatient [facility] [id number] [facility] 2025-06-23 06:09:00 2025-06-23 06:09:00 Outpatient Erasmo Romero [facility] OUTD [id number] [facility] 2025-05-28 00:00:00 2025-05-29 08:58:19 [facility] 1.2.840.114 350.1.13.10 4.2.7.2.686 [id number] 220 [id number] [facility] 2025-04-26 00:00:00 2025-05-27 18:20:08 Patient Secure Msg Doctor Unassigned, [place] Doctor [place]assigned, [place] [facility] 1.2840.114 350.1.13.10 4.2.7.2.686 [id number] 220 [id number] [facility] 2025-04-25 00:00:00 2025-04-26 09:01:52 Refill Nadir [facility] CULLEN?[facility] 1.2.840.114 350.1.13.10 4.2.7.2.686 [id number] 220 [id number] [facility] 2025-03-23 00:00:00 2025-03-23 14:56:20 Refill Nadir [facility] CULLEN?[facility] OFF[facility] BUILDING 1.2840.114 350.1.13.10 4.2.7.2.686 [id number] 220 [id number] [facility] 2020-02-25 00:00:00 2025-03-16 21:59:43 [facility] 1.2.840.114 350.1.13.10 4.2.7.2.686 [id number] 220 [id number] [facility] 2023-12-04 00:00:00 2025-03-16 21:12:34 Refill Jolanta Lee [facility] MEDICAL OFFICE BUILDING 1.2.840.114 350.1.13.10 4.2.7.2.686 [id number] [facility] 2025-03-03 14:36:15 2025-03-03 23:59:00 Hospital Encounter Radiology Radiology [facility] 1.2.840.114 350.1.13.10 4.2.7.2.686 [id number] 800 [id number] [facility] 2025-03-03 14:33:37 2025-03-03 14:35:00 Outpatient R RADIOLOGY [facility] [id number] [facility] 2025-03-03 14:33:37 2025-03-03 14:35:00 Hospital Encounter Radiology Radiology [facility] 1.840.114 350.1.13.10 4.2.7.2.686 [id number] 800 [id number] [facility] 2025-02-17 00:00:00 2025-02-17 00:00:00 Outpatient R RADIOLOGY [facility] [id number] [facility] 2024-10-06 00:00:00 2024-10-06 15:00:01 Telephone Nadir [facility] MEDICAL OFFICE BUILDING 1.840.114 350.1.13.10 4.2.7.2.686 [id number] 220 [id number] [facility] 2024-10-06 00:00:00 2024-10-06 00:00:00 Outpatient R NADIR [facility] [id number] [facility] 2024-09-30 00:00:00 2024-09-30 00:00:00 Outpatient R NADIR [facility] [id number] [facility] 2024-09-20 13:00:00 2024-09-20 13:15:00 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, Ang - Db Lizbeth Cardenas Lab, Ang - Db [facility] MEDICAL OFFICE BUILDING 1..840.114 350.1.13.10 4.2.7.2.686 [id number] [facility] 2024-09-20 12:00:00 2024-09-20 12:58:42 Outpatient R NADIR LIZBETH [facility] [id number] [facility] 2024-09-20 12:00:00 2024-09-20 12:58:42 Office Visit Nadir Counts include 234 beds at the [facility] MEDICAL OFFICE BUILDING 1..840.114 350.1.13.10 4.2.7.2.686 [id number] 220 [id number] [facility] 2024-08-10 12:28:00 2024-08-10 21:30:00 Inpatient Gavin Shaikh [facility] INTE.02 [id number] [facility] 2024-03-08 13:00:00 2024-03-08 13:32:57 Outpatient R NADIR [facility] [id number] [facility] 2024-03-08 13:00:00 2024-03-08 13:32:57 Office Visit Nadir [facility] MEDICAL OFFICE BUILDING 1.2.840.114 350.1.13.10 4.2.7.2.686 [id number] 220 [id number] [facility] 2024-02-22 00:00:00 2024-02-22 00:00:00 Refill Cardenas [facility] CULLEN?[facility] MEDICAL OFFICE BUILDING 1.2.840.114 350.1.13.10 4.2.7.2.686 [id number] 220 [id number] [facility] 2023-10-30 00:00:00 2023-10-30 00:00:[address] [facility] CULLEN?[facility] MEDICAL OFFICE BUILDING 1.2.840.114 350.1.13.10 4.2.7.2.686 [id number] [facility] 2023-10-30 00:00:00 2023-10-30 00:00:00 [facility] MED[facility] OFFICE BUILDING 1.2.840.114 350.1.13.10 4.2.7.2.686 [id number] [facility] 2023-09-29 13:43:28 2023-09-29 23:59:00 Outpatient [facility]ANTA [facility]ICE [facility] [id number] [facility] 2023-09-29 13:43:28 2023-09-29 23:59:00 [facility] 1.2.114 350.1.13.10 4.2.7.2.686 [id number] [facility] 2023-09-29 13:00:00 2023-09-29 13:43:18 [facility] 1..114 350.1.13.10 4.2.7.2.686 [id number] [facility] 2023-09-18 13:00:00 2023-09-18 13:00:00 Outpatient JERONIMO ROME [facility] [id number] [facility] 2023-09-08 10:00:00 2023-09-08 10:15:00 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, Jin - Chris Nadir [facility] 1.84.114 350.1.13.10 4.2.7.2.686 [id number] 353 [id number] [facility] 2023-09-08 09:00:00 2023-09-08 09:55:46 Outpatient R NADIR [facility] [id number] [facility] 2023-09-08 09:00:00 2023-09-08 09:55:46 Office Visit Nadir [facility] CULLEN?[facility] 1.84.114 350.1.13.10 4.2.7.2.686 [id number] 220 [id number] [facility] 2023-06-22 00:00:00 2023-06-22 00:00:00 [facility] 1.84.114 350.1.13.10 4.2.7.2.686 [id number] 220 [id number] [facility] 2023-05-08 00:00:00 2023-05-08 00:00:00 Refill Nadir [facility] CULLEN?[facility] 1.2840.114 350.1.13.10 4.2.7.2.686 [id number] 220 [id number] [facility] 2023-03-26 11:31:37 2023-03-26 23:59:00 Outpatient R RADIOLOGY [facility] [id number] [facility] 2023-03-26 11:20:00 2023-03-26 23:59:00 Hospital Encounter Radiology [facility] 1.20.114 350.1.13.10 4.2.7.2.686 [id number] [facility] 2023-03-26 00:00:00 2023-03-26 00:00:00 Orders Only Doctor Unassigned, [place] [facility] 1.2840.114 350.1.13.10 4.2.7.2.686 [id number] [facility] 2023-03-26 00:00:00 2023-03-26 00:00:00 Refill Nadir [facility] CULLEN?[facility] MEDICAL OFFICE BUILDING 1.840.114 350.1.13.10 4.2.7.2.686 [id number] 220 [id number] [facility] 2023-03-18 00:00:00 2023-03-18 00:00:00 Refill Nadir [facility] CULLEN?[facility] 1.2840.114 350.1.13.10 4.2.7.2.686 [id number] 220 [id number] [facility] 2023-02-25 00:00:00 2023-02-25 00:00:00 Telephone Nadir [facility] CULLEN?[facility] 1.2840.114 350.1.13.10 4.2.7.2.686 [id number] 220 [id number] [facility] 2023-02-23 00:00:00 2023-02-23 00:00:00 Telephone [facility] 1.2840.114 350.1.13.10 4.2.7.2.686 [id number] 220 [id number] [facility] 2023-02-14 00:00:00 2023-02-14 00:00:00 Refill Nadir [facility] C[facility]EN?[facility] MEDICAL OFFICE BUILDING 1..114 350.1.13.10 4.2.7.2.686 [id number] 220 [id number] [facility] 2023-01-06 10:00:00 2023-01-06 10:00:00 Outpatient R NADIR [facility] [id number] [facility] 2022-11-02 00:00:00 2022-11-02 00:00:00 Refill Simón [facility] CULLEN?[facility] MEDICAL OFFICE BUILDING 1..114 350.1.13.10 4.2.7.2.686 [id number] 220 [id number] [facility] 2022-10-20 00:00:00 2022-10-20 00:00:00 [facility]ill [facility] MEDICAL OFFICE BUILDING 1.20.114 350.1.13.10 4.2.7.2.686 [id number] 220 [id number] [facility] 2022-07-15 00:00:00 2022-07-15 00:00:00 Telephone Nadir [facility] 1.840.114 350.1.13.10 4.2.7.2.686 [id number] 220 [id number] [facility] 2022-07-01 11:45:00 2022-07-01 12:00:00 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, Ang - Db Nadir [facility] C[facility]EN?[facility] MED[facility] 1..114 350.1.13.10 4.2.7.2.686 [id number] 353 [id number] [facility] 2022-07-01 10:30:00 2022-07-01 11:40:18 Outpatient R NADIR [facility] [id number] [facility] 2022-07-01 10:30:00 2022-07-01 11:40:18 Office Visit [facility] 1.114 350.1.13.10 4.2.7.2.686 [id number] 220 [id number] [facility] 2022-07-01 00:00:00 2022-07-01 00:00:00 Orders Only Doctor Unassigned, [place] [facility] 1.114 350.1.13.10 4.2.7.2.686 [id number] [id number] [facility] 2022-06-06 11:30:00 2022-06-06 11:30:00 Outpatient R SIMÓN [facility] [id number] [facility] 2022-05-10 00:00:00 2022-05-10 00:00:00 Refill Simón [facility] C[facility]EN?[facility] MEDICAL OFFICE BUILDING 1..114 350.1.13.10 4.2.7.2.686 [id number] 220 [id number] [facility] 2022-05-03 00:00:00 2022-05-03 00:00:00 Refill Simón [facility] CULLEN?[facility] MEDICAL OFFICE BUILDING 1..114 350.1.13.10 4.2.7.2.686 [id number] 220 [id number] [facility] 2022-04-15 14:00:00 2022-04-15 14:00:00 Outpatient R VIKKI DONATO [facility] [id number] [facility] 2022-04-10 12:07:29 2022-04-10 23:59:00 [facility] ..840.114 350.1.13.10 4.2.7.2.686 [id number] 800 [id number] [facility] 2022-04-10 12:03:57 2022-04-10 12:06:00 Outpatient R VIKKI DONATO [facility] [id number] [facility] 2022-04-10 12:03:57 2022-04-10 12:06:00 Hospital Encounter [facility] ..840.114 350.1.13.10 4.2.7.2.686 [id number] 800 [id number] [facility] 2022-04-01 13:45:00 2022-04-01 13:45:00 Outpatient R VIKKI DONATO [facility] [id number] [facility] 2022-03-25 10:33:57 2022-03-25 23:59:00 [facility] ..840.114 350.1.13.10 4.2.7.2.686 [id number] 800 [id number] [facility] 2022-03-25 11:13:52 2022-03-25 10:32:00 Outpatient R VIKKI DONATO [facility] [id number] [facility] 2022-03-25 10:30:00 2022-03-25 10:32:00 [facility] .840.114 350.113.10 4.2.7.2.686 [id number] [facility] 2022-03-13 00:00:00 2022-03-13 00:00:00 Orders Only Doctor Unassigned, [place] [facility] 1.114 350.1.13.10 4.2.7.2.686 [id number] [id number] [facility] 2022-03-06 09:45:00 2022-03-06 10:00:00 Bridge Worker Visit 2, Adc Lab Unknown, Attending [facility] 1. 350.1.13.10 4.2.7.2.686 [id number] [facility] 2022-03-06 09:45:00 2022-03-06 09:45:00 Outpatient R JERONIMO MANZANO [facility] [id number] [facility] 2022-03-06 09:45:00 2022-03-06 09:45:00 Outpatient JERONIMO ROME [facility] [id number] [facility] 2022-03-04 08:18:01 2022-03-04 23:59:00 Outpatient R VIKKI DONATO [facility] [id number] [facility] 2022-03-04 08:18:01 2022-03-04 23:59:00 Outpatient R VIKKI DONATO [facility] [id number] [facility] 2022-03-04 08:18:01 2022-03-04 23:59:00 Hospital Encounter Vikki Donato [facility] 1.114 350.1.13.10 4.2.7.2.686 [id number] 802 [id number] [facility] 2022-03-03 00:00:00 2022-03-03 00:00:00 Telephone Vikki Donato [facility] 1.2.840.114 350.1.13.10 4.2.7.2.686 [id number] [facility] 2022-03-03 00:00:00 2022-03-03 00:00:00 Telephone Erik [facility] 1.2.840.114 350.1.13.10 4.2.7.2.686 [id number] [facility] 2022-02-21 10:40:23 2022-02-21 23:59:00 Outpatient R SIMÓN [facility] [id number] [facility] 2022-02-21 10:40:00 2022-02-21 23:59:00 Hospital Encounter Simón [facility] 1.2.840.114 350.1.13.10 4.2.7.2.686 [id number] 800 [id number] [facility] 2022-02-21 00:00:00 2022-02-21 00:00:00 Orders Only Doctor Unassigned, [place] [facility] 1.2.840.114 350.1.13.10 4.2.7.2.686 [id number] [facility] 2022-02-18 00:00:00 2022-02-18 00:00:00 Telephone [facility] 1.2840.114 350.1.13.10 4.2.7.2.686 [id number] 419 [id number] [facility] 2022-02-18 00:00:00 2022-02-18 00:00:00 Orders Only Doctor Unassigned, [place] [facility] 1.2.840.114 350.1.13.10 4.2.7.2.686 [id number] [facility] 2022-02-18 00:00:00 2022-02-18 00:00:00 Telephone [facility] 1..840.114 350.1.13.10 4.2.7.2.686 [id number] [facility] 2021-11-22 10:00:00 2021-11-22 10:45:13 Outpatient R SIMÓ[facility] [id number] [facility] 2021-11-22 10:00:00 2021-11-22 10:45:13 Office Visit Simón [facility] GREGOR[facility] MEDICAL OFFICE BUILDING 1.2.840.114 350.1.13.10 4.2.7.2.686 [id number] 220 [id number] [facility] 2021-11-22 10:00:00 2021-11-22 10:45:13 Outpatient R SIMÓN [facility] [id number] [facility] 2021-10-25 00:00:00 2021-10-25 00:00:00 [facility] 1.2.840.114 350.1.13.10 4.2.7.2.686 [id number] 220 [id number] [facility] 2021-08-13 11:00:00 2021-08-13 11:00:00 Outpatient R NADIR [facility] [id number] [facility] 2021-05-15 00:00:00 2021-05-15 00:00:00 Orders Only Doctor Unassigned, [place] [facility] 1.2840.114 350.1.13.10 4.2.7.2.686 [id number] [id number] [facility] 2021-05-15 00:00:00 2021-05-15 00:00:00 Orders Only Doctor Unassigned, [place] [facility] 1.2840.114 350.1.13.10 4.2.7.2.686 [id number] [id number] 2021-05-03 13:19:28 2021-05-03 14:16:38 Office Visit Ирина Ortiz [facility] 1.2.840.114 350.1.13.10 4.2.7.2.686 [id number] 220 [id number] [facility] 2021-05-03 13:19:28 2021-05-03 14:16:38 Office Visit Ирина Ortiz [facility] 1.2.840.114 350.1.13.10 4.2.7.2.686 [id number] 220 [id number] 2021-05-03 13:30:00 2021-05-03 13:30:00 [id number] 2021-04-24 00:00:00 2021-04-24 00:00:00 Refill Nadir [facility] 1.2.840.114 350.1.13.10 4.2.7.2.686 [id number] 220 [id number] [facility] 2021-02-26 00:00:00 2021-02-26 00:00:00 Telephone Nadir [facility] 1.2.840.114 350.1.13.10 4.2.7.2.686 [id number] 220 [id number] [facility] 2021-02-07 09:20:34 2021-02-07 23:59:00 Hospital Encounter Lizbeth Cardenas [facility] 1.2.840.114 350.1.13.10 4.2.7.2.686 [id number] 800 [id number] [facility] 2021-02-07 09:45:00 2021-02-07 09:45:00 Outpatient R [facility] [id number] [facility] 2021-02-07 09:19:36 2021-02-07 09:34:36 Bridge Worker Visit 2, Adc Lab [facility] 1.2.840.114 350.1.13.10 4.2.7.2.686 [id number] [facility] 2021-02-07 00:00:00 2021-02-07 00:00:00 Orders Only Doctor Unassigned, [place] [facility] 1.2840.114 350.1.13.10 4.2.7.2.686 [id number] [id number] [facility] 2021-02-05 15:30:02 2021-02-05 16:24:34 Office Visit Nadir [facility] 1.2840.114 350.1.13.10 4.2.7.2.686 [id number] 220 [id number] [facility] 2021-02-05 15:30:00 2021-02-05 15:30:00 Outpatient R NADIR [facility] [id number] [facility] 2021-02-04 12:50:00 2021-02-04 12:50:00 Outpatient CARLITA ERNANDEZ [facility] [id number] [facility] 2021-01-14 10:30:00 2021-01-14 10:30:00 Outpatient CARLITA ERNANDEZ [facility] [id number] [facility] 2020-12-01 00:00:00 2020-12-01 00:00:00 Jesus Rodriguez [facility] 1.2.840.114 350.1.13.10 4.2.7.2.686 [id number] 220 [id number] [facility] 2020-06-15 00:00:00 2020-06-15 00:00:00 Jesus Rodriguez [facility] Building 1.2.840.114 350.1.13.10 4.2.7.2.686 [id number] 220 [id number] [facility] 2020-03-25 00:00:00 2020-03-25 00:00:00 Refill Nadir [facility] Building 1.2.840.114 350.1.13.10 4.2.7.2.686 [id number] 220 [id number] [facility] 2020-03-23 13:30:00 2020-03-23 13:30:00 Outpatient R JESUS NEWMAN [facility] [id number] [facility] 2020-03-19 00:00:00 2020-03-19 00:00:00 Refill Nadir [facility] Building 1.2.840.114 350.1.13.10 4.2.7.2.686 [id number] 220 [id number] [facility] 2020-03-06 10:00:00 2020-03-06 10:00:00 Outpatient R NADIR [facility] [id number] [facility] 2020-03-06 08:02:38 2020-03-06 08:32:38 Telemedici ne Visit Nadir [facility] Building 1.2.840.114 350.1.13.10 4.2.7.2.686 [id number] 220 [id number] [facility] 2020-02-28 00:00:00 2020-02-28 00:00:00 Refill Nadir [facility] Building 1.2.840.114 350.1.13.10 4.2.7.2.686 [id number] 220 [id number] [facility] 2020-02-07 09:00:00 2020-02-07 09:00:00 Outpatient R NADIR [facility] [id number] [facility] 2020-01-24 11:00:00 2020-01-24 11:30:00 Office Visit Nadir [facility] Building 1.2.840.114 350.1.13.10 4.2.7.2.686 [id number] 220 [id number] [facility] 2020-01-24 11:00:00 2020-01-24 11:00:00 Outpatient R LIZBETH CARDENAS [facility] [id number] [facility] 2019-08-02 00:00:00 2019-08-02 00:00:00 Refill Marychuy Mcdonnell [facility] 1.2.840.114 350.1.13.10 4.2.7.2.686 [id number] 220 [id number] [facility] 2019-07-26 13:14:50 2019-07-26 13:53:33 Office Visit NadirLizbeth [facility] 1.2.840.114 350.1.13.10 4.2.7.2.686 [id number] 220 [id number] [facility] 2019-07-26 00:00:00 2019-07-26 00:00:00 Orders Only Doctor Unassigned, [place] [facility] 1.2.840.114 350.1.13.10 4.2.7.2.686 [id number] [id number] [facility] 2019-06-16 14:48:06 2019-06-16 15:42:48 Group Cio Visit Joyce Irizarry [facility] 1.2.840.114 350.1.13.10 4.2.7.2.686 [id number] 220 [id number] [facility] 2019-06-16 00:00:00 2019-06-16 00:00:00 Orders Only Doctor Unassigned, [place] [facility] 1.2.840.114 350.1.13.10 4.2.7.2.686 [id number] [id number] [facility] Results Test Description Test Time Test Comments Results Result Co mments Source GLUCOSE [id number] 07:14:00* Test Item Value Reference Range Interpretation Comme nts GLUCOSE BEDSIDE (test code = GLUBED) 87 MG/DL 70-110 N Performed by cer tified circular shear operator at [facility] [id number] 07:05:00* Test Item Value Reference Range Interpretation Comme nts POTASSIUM (test code = K) 3.2 mEq/L 3.4-5.0 L BASIC METABOLIC [id number] 10:58:00* Test Item Value Reference Range Interpretation Comme nts SODIUM (test code = NA) 135 mEq/L 134-147 N POTASSIUM (test code = K) 3.0 mEq/L 3.4-5.0 L CHLORIDE (test code = CL) 98 mEq/L 100-108 L CARBON DIOXIDE (test code = CO2) 29 mEq/l 21-33 N ANION GAP (test code = GAP) 11 0-20 N GLUCOSE (test code = GLU) 78 mg/dL 77-141 N BLOOD UREA NITROGEN (test code = BUN) 11 mg/dL 7-25 N GLOMERULAR FILTRATION RATE (test code = GFR) 80.2 80-90 N The Glomerular Filtration Rate is [...] 0.6-1.3 N CALCIUM (test code = CA) 9.0 mg/dL 8.0-10.5 N CBC W/AUTO [id number] 10:57:00* Test Item Value Reference Range Interpretation Comme nts WHITE BLOOD CELL (test code = WBC) 9.2 x10 3/uL 4.5-11.0 N RED BLOOD CELL (test code = RBC) 3.69 x10 6/uL 3.54-5.02 N HEMOGLOBIN (test code = HGB) 9.0 g/dL 11.0-15.0 L HEMATOCRIT (test code = HCT) 29.1 % 33.0-45.0 L MEAN CELL VOLUME (test code = MCV) 78.9 fL 81.0-99.0 L MEAN CELL HGB (test code = MCH) 24.4 pg 27.0-33.0 L MEAN CELL HGB CONCETRATION (test code = MCHC) 30.9 g/dL 33.0-37.0 L RED CELL DISTRIBUTION WIDTH CV (test code = RDW) 18.3 % 11.5-14.5 H RED CELL DISTRIBUTION WIDTH SD (test code = RDW-SD) 52.8 fL 37.0-54.0 N PLATELET COUNT (test code = PLT) 242 x10 3/uL 150-400 N MEAN PLATELET VOLUME (test c ode = MPV) 10.0 fL 7.0-9.0 H NEUTROPHIL % (test code = NT%) 69.8 % 56.0-77.0 N IMMATURE GRANULOCYTE % (test code = IG%) 1.2 % 0.0-2.0 N LYMPHOCYTE % (test code = LY%) 18.4 % 14.0-32.0 N MONOCYTE % (test code = MO%) 6.6 % 4.8-9.0 N EOSINOPHIL % (test code = EO%) 3.3 % 0.3-3.7 N BASOPHIL % (test code = BA%) 0.7 % 0.0-2.0 N NUCLEATED RBC % (test code = NRBC%) 0.0 % 0-0 N NEUTROPHIL # (test code = NT#) 6.40 x10 3/uL 2.0-7.6 N IMMATURE GRANULOCYTE # (test code = IG#) 0.11 x10 3/uL 0.00-0.03 H LYMPHOCYTE # (test code = LY#) 1.68 x10 3/uL 1.0-3.8 N MONOCYTE # (test code = MO#) 0.60 x10 3/uL 0.1-0.8 N EOSINOPHIL # (test code = EO#) 0.30 x10 3/uL 0.0-0.2 H BASOPHIL # (test code = BA#) 0.06 x10 3/uL 0.0-0.2 N NUCLEATED RBC # (test code = NRBC#) 0.00 x10 3/uL 0.0-0.1 N PROTHROMBIN [id number] 10:53:00* Test Item Value Reference Range Interpretation [facility] PROTHROMBIN TIME PATIENT (test code = PTP) 11.8 SECONDS 9.3-12.9 N INTERNATIONAL NORMAL RATIO (test [...] Acute Myocardial Infarction (to prevent recurrent infarct). Dexa Axial (hip and spine)2025-03-03 20:59:02EXAM: Dual-energy X-ray absorptiometry. HISTORY: Age-related osteoporosis without current pathological fractureExternal orders COMPARISON: 02/21/2022. TECHNIQUE and FINDINGS: Bone densitometry of the lumbar spine and right hip was performed. WHO-definitions: T-score normal: +/- 1 SD around the meanosteopenia: >1 to 2.4 SD below the meanosteoporosis: &gt ;2.5 SD below the meanFracture risk doubles for each 1.5 SD below the mean. [facility] [facility] A[facility] [id number] 16:54:00* Test Item Value Reference Range Interpretation [facility] POCT HBA1C (test code = 4548-4) 5.6 % 4-6 [facility]AG[facility] [id number] 15:46:00 * Test Item Value Reference Range Interpretation [facility] COAGULATION TIME ACTIVATED (test code = ACT) 282 SECONDS Performed by certified circular shear operator at [facility] BASIC METABOLIC [id number] 13:13:00* Test Item Value Reference Range Interpretation Comme nts SODIUM (test code = NA) 141 mEq/L 134-147 N POTASSIUM (test code = K) 2.9 mEq/L 3.4-5.0 LL Critical result called to ANJALI NORMAN, RNby [id number] at 1312 08/10/24Nurse read back resut and [...] = CA) 8.3 mg/dL 8.0-10.5 N PROTHROMBIN [id number] 12:44:00* Test Item Value Reference Range Interpretation [...] Infarction (to prevent recurrent infarct). BASIC METABOLIC [id number] 15:41:00* Test Item Value Reference Range Interpretation Comme nts SODIUM (test code = NA) 138 mEq/L 134-147 N POTASSIUM (test code = K) 2.8 mEq/L 3.4-5.0 LL Critical result called to MONET MILLIGAN RNby [id number] at 1536 08/08/24Nurse read back resut and [...] code = CA) 8.3 mg/dL 8.0-10.5 N [id number] 15:41:00* Test Item Value Reference Range Interpretation Comme nts PREALBUMIN (test code = PREALB) 13.0 mg/dL 16.0-40.0 L CBC W/AUTO [id number] 15:17:00* Test Item Value Reference Range Interpretation [...] x10 3/uL 0.0-0.1 N POCT Hemoglobin A1C [id number] 18:00:00* Test Item Value Reference Range Interpretation Comme nts POCT HBA1C (test code = 4548-4) 5.5 % 4-6 [facility] Hem[facility] A1C [id number] 18:00:00* Test Item Value Reference Range Interpretation Comme nts POCT HBA1C (test code = 4548-4) 5.5 % 4-6 [facility] Notes Date/Time Note Provider Source 2025-06-23 09:07:00 [facility] ([facility]) DT Operative Note REPORT#:[id number] REPORT STATUS: Signed REPORT INITIALIZATION DATE:06/23/25 TIME: 906 PATIENT: NORI CERNA UNIT #: [id number] ROOM/BED: : 56 AGE: 69 SEX: F ATTEND: Erasmo Garcia MD ADM AUTHOR: Erasmo Garcia MD REPT SERVICE DT/TIME: 06/23/25 09 * ALL edits or amendments must be made on the electronic/computer document * Operative Report Operative Note Note: OPERATION DATE: 06/23/2025 PREOPERATIVE DIAGNOSES: 1. Persistent atrial fibrillation, refractory to medical therapy. 2. Shortness of breath. 3. Tiredness POSTOPERATIVE DIAGNOSES: 1. Persistent atrial fibrillation, refractory to medical therapy. 2. Shortness of breath. 3. Tiredness PROCEDURES PERFORMED: 1. Comprehensive electrophysiology study with induction. 2. Ablation of atrial fibrillation. 3. Additional linear ablation in the left atrium for atrial fibrillation. SURGEON: Erasmo Geronimo MD DUST COLLECTOR: ESTIMATED BLOOD LOSS: 20 mL. COMPLICATIONS: None. ANESTHESIA: General. DESCRIPTION OF PROCEDURE: After informed consent was obtained, the patient was brought to the electrophysiology laboratory in a fasting sedated state. The area over her groin was prepped and draped in the usual sterile fashion. General anesthesia was started. Vascular access was obtained x 2 in the right common femoral vein under ultrasound. Heparin was given to maintain ACT greater than 350. There was no pericardial effusion at baseline, no thrombus in the left atrium. We then performed transeptal access x1. A 3D map of the left atrium was created using V[employer] System. The patient was in Atrial fibrillation We then performed pulse field ablation lesions using the basket configuration x2 , then rotated about 30 degrees, delivered two more lesions, then the flower configuration x2, rotated about 30 degrees and delivered two more lesions on each vein until all four veins were isolated. We then performed additional linear ablation with the same pulse field ablation catheter in the flower configuration x2 lesions per each location at the posterior wall until successful isolation. Also, performed two lesions at the SVC to successfully isolate the ostium Cardioversion was performed to sinus rhythm with a single shock of 360J Post ablation ablation map demonstrated entrance and exit block in all four veins and the posterior wall. The patient tolerated the procedure well. Procedure was complete. There was no pericardial effusion. We gave protamine. We removed the sheaths. We used Vascade. Total lesions delivered 54 IMPRESSION: 1. Atrial fibrillation on presentation. 2. Successful isolation of the four pulmonary veins, posterior wall and SVC using pulse field ablation 3. Cardioversion to sinus rhythm 4. No complications PLAN: 1. Routine postop monitoring on telemetry. 2. Continue oral anticoagulation and current medicines. 3. Will follow in 1-2 weeks at 0911 [facility] #:[id number] END OF REPORT [facility] 2025-06-21 10:34:00 [id number] [place] [id number] PATIENT NAME: NORI CERNA ADMIT DATE: ACCOUNT NO: [id number] ROOM NO: AGE: 69 REPORT TYPE: eELECTROCARDIOGRAM REPORT SEX: F ADMITTING PHYSICIAN: ATTENDING PHYSICIAN:Erasmo Garcia MD Order: [id number] Test Reason : PREOP Test Date/Time Stamp: ThuJun 21 2025 10:34:13 Blood Pressure : */* mmHG Vent. Rate : 91 BPM Atrial Rate : 241 BPM P-R Int : * ms QRS Dur : 114 ms QT Int : 380 ms P-R-T Axes : * 54 179 degrees QTcB Int : 467 ms Atrial fibrillation with premature ventricular or aberrantly conducted complexes Incomplete left bundle branch block ST and T wave abnormality, consider inferolateral ischemia Abnormal ECG When compared with ECG of 10-Aug-2024 16:27, Significant changes have occurred Confirmed by VANCE FOSTER ([id number]) on 06/21/2025 12:33:16 PM Referred By: Erasmo Geronimo Confirmed by: VANCE FOSTER at 1233 PATIENT NAME: NORI CERNA [facility] 2025-05-29 08:56:34 Refill has been sent to pharmacy on file. MUST BE SEEN FOR FURTHER REFILLS Future Appointments No visits were found meeting these conditions. Showing future appointments within next 150 days with a meds authorizing provider and meeting all other requirements Elodia Sumner RN [facility] 2025-04-26 09:01:08 Renfill has been set to phx on file . Requested Prescriptions Pending Prescriptions Disp Refills levothyroxine 25 mcg tablet [Pharmacy Med Name: LEVOTHYROXINE 0.025MG (25MCG) TAB] 90 tablet 0 Sig: TAKE 1 TABLET BY MOUTH EVERY MORNING Ly Renteria MA [facility] 2025-03-23 14:53:21 Refill has been sent to pharmacy on file. Elodia Sumner RN [facility] 2024-10-06 14:55:02 Spoke with patient, she has experience dizziness since having a walkman placed for her A-Fib. Pt was recommended to follow up with her station installer and her PCP. Pt verbalized that she called her station installer and has an appt 10/13. She stated she has not talked to her PCP, she stated she will FU with her PCP and then call us for a FU after. Pt verbalized no further questions. F CONCIERGE Elodia Sumner RN [facility] 2024-10-06 14:22:08 Nori Cerna is a 68 year old female Patient is calling to schedule an appointment with Dr. Cardenas per ER request. The soonest I see is in January, please check if the patient can be overbooked. Patient mentioned that she has been very dizzy and weak, and had a fall last Thursday. Currently exhibiting symptoms. Patient disconnected. Please advise. IRA Solo [facility] 2024-09-20 13:00:00 Images from the original note were not included. Venipuncture collection performed by clean technique on the back of right hand. Total of 1 attempts were made. Slight pressure and a bandage/dressing were applied to the site(s). The patient experienced no complications. The following specimens were processed according to instructions and sent to [facility] laboratories per lab order on today: LT BLUE SST 2 RED LAV PPT DK GREEN (LiHep) DK GREEN (SodH) RHODES DK BLUE (K2) DK BLUE (S) ACD Blood Culture NIPT/NTD [facility] 2024-08-11 06:51:00 [id number] [place] [address] PATIENT NAME: NORI CERNA ADMIT DATE: 08/10/24 ACCOUNT NO: [id number] ROOM NO: MUSTAPHA AGE: 68 REPORT TYPE: eECHOCARDIOGRAM REPORT SEX: F ADMITTING PHYSICIAN:Gavin Howe MD ATTENDING PHYSICIAN:Gavin Howe MD *[address] [address] Limited Transthoracic Echocardiogram Patient: Nori Cerna Study Date: 08/10/2024 BP: 158 / 72 URN: [id number] Location: : 1955 Age: 68 Gender: F Height: 62 in / 157.5 cm Weight: 160 lb / 72.6 kg BMI/BSA: 29.3 kg/m 2 / 1.81 m 2 *Ordering Physician: Arash Lizarraga *Interpreting Physician: * Jc Smith MD *Inoculator: Annalisa Sky Indications: Rule out pericardial effusion. Study data: Transthoracic echocardiogram, limited study. Procedure: A transthoracic echocardiogram was performed. Image quality was adequate. Limited 2D and limited spectral Doppler. Location: Bedside. Patient status: Inpatient. Patient room number: CHIN-4. Study status: [facility]. Heart rate: 67 bpm. Findings Left [...] 06:51 at 0651 PATIENT NAME: NORI CERNA [facility] 2024-08-10 17:45:00 [id number] [place] [address] PATIENT NAME: NORI CERNA ADMIT DATE: 08/10/24 ACCOUNT NO: [id number] ROOM NO: MUSTAPHA AGE: 68 REPORT TYPE: eTRANSESOPHAGEAL ECHO REPORT SEX: F ADMITTING PHYSICIAN:Gavin Howe MD ATTENDING PHYSICIAN:Gavin Howe MD *[place] [address] Transesophageal Echocardiogram for Og Patient: Nori Cerna Study Date: 08/10/2024 BP: URN: [id number] Location: : 1955 Age: 68 Gender: F Height: 61.8 in / 157 cm Weight: 160.9 lb / 73 kg BMI/BSA: 29.6 kg/m 2 / 1.81 m 2 *Ordering Physician: * Too Taylor *Interpreting Physician: * Jc Smith MD *Inoculator: * Gail Pierre, TESSIE, S Indications: Atrial Fibrillation. Study data: Transesophageal Echocardiogram for Og. 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 SURGEON: Gavin Howe MD DUST COLLECTOR: ANESTHESIA: INDICATION: Atrial fibrillation with high CHADS-VASc score, risk of bleeding, and intolerant of anticoagulants. ACCESS: Right common femoral vein 16-Scottish, closed with odntfc-ca-hjtvb suture. COMPLICATIONS: None. BLEEDING: Less than 50 [...] kit and ultrasound guidance, and placed an 8-Scottish Cambridge sheath and gave partial dose of heparin and then exchanged for 16-Scottish Cook sheath and then took SL1 sheath over the wire into the SVC. With the Mahomet needle into interatrial septum in the low-mid [...] the Watchman sheath. The Cook sheath and xzaslf-nz-ehhkb suture was placed for closure with good hemostasis. CONCLUSION: Successful left atrial appendage closure using a 24-mm Watchman FLX closure device. Dictated By: Gavin Howe MD Date Dictated: 08/10/2024 15:53:10 Date Transcribed: 08/10/2024 18:17:17 SR/JUAREZ/HEM/NAG Receipt ID: [id number] Authenticated by Gavin Howe MD On 09/13/2024 07:51:13 AM at 0751 PATIENT NAME: NORI CERNA [facility] 2024-08-10 12:21:00 [facility] ([facility]) Discharge Summary REPORT#:[id number] REPORT STATUS: Signed REPORT INITIALIZATION DATE:08/10/24 TIME: 1221 PATIENT: NORI CERNA UNIT #: [id number] ROOM/BED: [place] [address] : 56 AGE: 68 SEX: F ATTEND: Gavin Howe MD ADM AUTHOR: Arash Norman REPT SERVICE DT/TIME: 08/10/24 1221 * ALL edits or amendments must be made on the electronic/computer document * PCP PCP Discharge to: home General Information Discharge date: 08/10/24 Discharge diagnosis: AFIB Hospital course: Patient with paroxysmal atrial fibrillation, MJR8ED3-VWHb score of 4, and intolerance to long-term [...] is to follow up with PCP and station installer in 1 to 2 weeks after discharge. Patient is to follow up with station installer for the 45-day RYLAND and for anticoagulation [...] of breath, lightheadedness, or dizziness to the station installer. Dispo: It is medically necessary that patients [...] distress GI: soft, non-tender Extremities: moves all Neuro/TARIFF PUBLISHING AGENT: alert, oriented X 3 Skin: dry Wound/incision: [...] Report Impression - Status: SIGNED Entered: 08/10/2024 1816 Impression: 1. No radiographic evidence of acute [...] 1508 Report Impression - Status: SIGNED Entered: 08/08/20241715 IMPRESSION: No acute cardiopulmonary process. Impression By: [email or web address] - Imer Ralph D.O. Discharge Instructions PCP PCP: PCP: Gavin Howe MD )( Discharge to: Home/Self Care Discharge Instructions Additional Discharge Routines: Attending Follow-Up )( Diet: Cardiac )( Activity: As Tolerated Follow-up Appointments Attending Physician: Attending Physician: Gavin Howe MD Attending physician follow up timeframe: In 1-2 weeks Quality: Discharge Advanced Care Plan 65 or Older Discussed with: patient at 1019 at 2027 RPT #:[id number] END OF REPORT [facility] 2024-08-08 15:25:00 [facility] ([facility]) Hospitalist History Physical REPORT#:[id number] REPORT STATUS: Signed REPORT INITIALIZATION DATE:08/08/24 TIME: 152 PATIENT: NORI CERNA UNIT #: [id number] ROOM/BED: : 56 AGE: 68 SEX: F ATTEND: Gavin Hwoe MD ADM AUTHOR: Vinod Harrington MD REPT [...] social history: , LIVES WITH HER SISTER (POA), HAS NO LIVING WILL, WISHES FULL CODE. [...] soft Extremities: no edema Musculoskeletal: normal inspection Neuro/TARIFF PUBLISHING AGENT: alert, oriented X 3, normal speech, no [...] (Auto) (14.0 - 32.0 %) 12.0 L [place] % (Auto) (4.8 - 9.0 %) 3.6 L Eos % (Auto) (0.3 - 3.7 %) 2.2 Baso % (Auto) (0.0 - 2.0 %) 0.2 Neut # (Auto) (2.0 - 7.6 x10 3/uL) 7.96 H Lymph # (Auto) (1.0 - 3.8 x10 3/uL) 1.17 [place] # (Auto) (0.1 - 0.8 x10 3/uL) [...] patient Discussion included: living will, power of information technology project manager, code status, FULL CODE at 1531 RPT #:[id number] END OF REPORT [facility] 2024-08-08 13:34:00 [id number] [place] [address] PATIENT NAME: NORI CERNA ADMIT DATE: ACCOUNT NO: [id number] ROOM NO: AGE: 68 REPORT TYPE: eELECTROCARDIOGRAM REPORT SEX: F ADMITTING PHYSICIAN: ATTENDING PHYSICIAN:Gavin Howe MD Order: [id number] Test Reason : PREOP Test Date/Time Stamp: [...] MD at 1532 PATIENT NAME: NORI CERNA [facility] 2024-02-22 09:12:07 SHIRIN 09/08/23 NOV 03/08/24 Per SHIRIN note: Hypothyroidism: --Continue Levothyroxine 25 mcg daily. Take on an empty stomach. Nimco Mccabe LVN [facility] 2023-12-04 16:24:41 Images from the original note were not included. Last Refilled: 10/30/23 Notes: [id number] - [place], [place] - [address] [place] [address] Recent Visits Date Type Provider Dept 09/29/23 Office Visit Jolanta Lee MD [facility] Showing recent visits within past 540 [...] Lee MD Last refill: 10/30/2023 Rx #: [id number]|0|1 Off-Protocol Mehgyy5112/04/2023 03:51 PM Protocol Details Medication not assigned to a protocol, forward to provider. Valid encounter within last 12 months To be filled at: [facility] #[id number] [place] [address] - [address] [place] [address] [facility] F CONCIERGE Qi Cabrales MA [facility] 2023-06-22 13:09:54 Formatting of this n ote might be different from the original. NOV: 09/08/23 SHIRIN: 07/01/22 Refill sent [facility] 2023-06-22 09:00:25 Formatting of this n ote might be different from the original. Images from the original note were not included. Danyell Martinez [facility] 2020-02-27 10:39:27 Patient no-showed last two OV. Please schedule telemed visit with Dr. Cardenas. SHIRIN: 09/28/19 Beth Maravilla RN [facility]"
[2025-07-07 16:45] LABS: Absolute Lymphocytes (CBC) 0.4 K/uL (0.7-4.9); Hematocrit 21.8 % (36.0-45.0); Hemoglobin 7.1 g/dL (12.0-15.0); MCH 24.2 pg (27.0-35.0); MCHC 32.7 g/dL (32.0-36.0); MCV 74.1 fL (80-100); MPV 7.7 fL (7.6-11.3); Nucleated RBC Absolute Count 0.0 (0-0); Nucleated Red Blood Cells % 0.0 % (0-0); RBC Red Blood Cell Count 2.94 M/uL (3.86-4.86); White Blood Count 10.80 thou/uL (4.3-10.9)
[2025-07-07] MEDS ORDERED: ONDANSETRON 4 MG/2 ML VIAL ONE (16:45)
[2025-07-07] MEDS ORDERED: IPRATROPIUM BROM 0.5MG/2.5ML ONE (16:45)
[2025-07-07] MEDS ORDERED: ALBUTEROL 2.5 MG/3 ML NEB SOL ONE (16:45)
[2025-07-07] MEDS ORDERED: HYDROCORTISONE SUC 100 MG INJ ONE (16:45)
[2025-07-07] MEDS ORDERED: WATER FOR INJ,STERILE 0 ML ONE (16:46)
[2025-07-07] MEDS ORDERED: FENTANYL CITR 100 MCG/2 ML ONE ×2 (16:46→21:39)
[2025-07-07 16:54] LABS: PT Prothrombin Time 25.3 SECONDS (10-13.0); Protime INR 2.29
[2025-07-07 17:08] LABS: ALT/SGPT 20.0 U/L (13-56); AST/SGOT 22.0 U/L (15-37); Albumin 2.3 g/dL (3.4-5.0); Albumin/Globulin Ratio 0.6 (1.1-1.8); Alkaline Phosphatase 116.0 U/L (45-117); Anion Gap 10.7 mEq/L (5.0-15.0); BUN Blood Urea Nitrogen 8.0 mg/dL (7-18); Bilirubin Indirect, Calculated 0.4 mg/dL (0.2-0.8); Globulin 4.1 g/dL (2.3-3.5); Glucose Level 156.0 mg/dL (74-106); Magnesium 2.0 mg/dL (1.6-2.4); NT PRO-BNP 2065.0 pg/mL (<125); Potassium 2.7 mEq/L (3.5-5.1); Troponin High Sensitivity 37.9 pg/mL (<58.9)
[2025-07-07 17:09] LABS: Blood Morphology Comment NOTED (NOT SEEN); Ovalocytes SLIGHT; White Blood Cell Scan OK (OK)
[2025-07-07 17:24] LABS: Influenza A Ag Negative; Influenza B Ag Negative; SARS-CoV-2 Antigen Rapid Res Negative (Negative)
--- NOTE | 2025-07-07 17:54 | RAD REPORT ---
EXAMINATION: CT HEAD WITHOUT CONTRAST CT CERVICAL SPINE WITHOUT CONTRAST CLINICAL INDICATION: Head and neck injury status post fall. Head and neck pain TECHNIQUE: Axial CT images from the skull base to the vertex without intravenous contrast. Axial CT i mages through the cervical spine were obtained without intravenous contrast. Sagittal and coronal reformatted images were created from the data set. Coronal and sagittal reformatted images were creat ed from the data set. One or more of the following dose reduction techniques were used: Automated exposure control, adjustment of the mA and/or kV according to patient size, and/or iterative reconstr uction. Unless otherwise specified, incidental findings do not require dedicated imaging follow-up. [id number]. Comparison: 2019 FINDINGS: An intracranial bleed is not seen. Ventricles are normal in caliber. No significant hypodensity within the brain No extra-axial fluid collection. No fluid within the sinuses/mastoids No fracture or dislocation is seen involving the cervical spine. IMPRESSION: No acute intracranial abnormality noted A cervical fracture is not seen. 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
--- NOTE | 2025-07-07 18:09 | RAD REPORT ---
EXAMINATION: CT ABDOMEN AND PELVIS WITH CONTRAST CLINICAL INDICATION: Abdominal pain TECHNIQUE: CT abdomen and pelvis was performed, after the administration of 100 cc Isovue-300.. Sagit kayy and coronal reconstructions were obtained. One or more of the following dose reduction techniques were used: Automated exposure control, adjustment of the mA and kV according to patient si ze, and iterative reconstruction. Unless otherwise specified, incidental findings do not require dedicated imaging follow-up. OF0866. Oral contrast was not given which limits evaluation of bowel and appendix. COMPARISON: .October 2024 FINDINGS: Chronic pneumobilia. Cholecystectomy. Liver otherwise unremarkable. Atrophic pancreas. Adrenals and left kidney unremarkable. Spleen has a mildly diminished diffusely Staghorn right renal calculus unchanged. No hydronephrosis. Small renal cysts. Mild bladder distention. Mild borderline distention of the transverse and right colon is chronic. No mechanical obstruction. : IMPRESSION: The spleen has a mildly diffuse diminished attenuation. The significant of this is uncertain. This co uld be monitored on a subsequent exam. Nonobstructing Staghorn calculus right kidney
--- NOTE | 2025-07-07 18:09 | RAD REPORT ---
EXAMINATION: CTA CHEST PE CLINICAL INDICATION: Chest pain TECHNIQUE: 100 cc 370 Isovue administered intravenously. This examination was performed according to an angiographic protocol with 3D post-processing. This involves 3D reconstructions, MIPs, volume rendered images and/or shaded surface rendering. One or more of the following dose reduction techniqu es were used: Automated exposure control, adjustment of the mA and/or kV according to patient size, and/or iterative reconstruction. Unless otherwise specified, incidental findings do not require dedic ated imaging follow-up. [id number]. COMPARISON: No previous CT chest . FINDINGS: A pulmonary embolus is not seen. An aortic aneurysm not noted. Small to moderate bilateral pleural effusions. A watchman device is present within the heart. Moderate to marked left upper lobe alveolar opacities. Moderate right upper lobe alveolar opacities. Mild to moderate left lower lobe alveolar opacities. Mild right lower lobe opacities. Minimal compression superior vertebral endplate of T12 vertebral body unchanged from October 2024 IMPRESSION: No evidence of a pulmonary embolism Bilateral alveolar opacities left greater than right probably pneumonia or pneumonitis
--- NOTE | 2025-07-07 18:29 | RAD REPORT ---
Procedure: Chest Single View HISTORY: Shortness of breath COMPARISON: May 2025 FINDINGS: Moderate left lung opacities mostly left upper lobe. Mild to moderate right lung opacities No significant pleural effusion noted. The heart is borderline enlarged. IMPRESSION: Bilateral pulmonary opacities probably pneumonia or pneumonitis
--- NOTE | 2025-07-07 20:11 | EDPHYS ---
Physician Documentation [facility] Name: Dulce Cerna Age: 69 yrs Sex: Female : 1955 Arrival Date: 07/07/2025 Time: 14:48 Bed 3 Private MD: ED Physician Fletcher Pruitt HPI: 07/07 15:20 This 69 yrs old Female presents to ER via Wheelchair with complaints of Shortness Of cp Breath, Back Pain, Pelvic Pain. 15:20 The patient has shortness of breath at rest. Onset: The symptoms/episode began/occurred cp 2 day(s) ago. 15:20 Associated signs and symptoms: Pertinent positives: back pain and general weakness. cp 15:20 Duration: The symptoms are continuous, but are steadily getting better. cp 15:20 Severity of symptoms: in the emergency department the symptoms are unchanged despite cp home interventions. Historical: - Allergies: 14:58 PENICILLINS; ll1 14:58 Sulfa (Sulfonamide Antibiotics); ll1 - PMHx: 14:58 Hyperlipidemia; Chronic pain; Irritable bowel syndrome; Depression; Early Dementia; ll1 addisons; TIA; - PSHx: 14:58 Cholecystectomy; endometriosis; Appendectomy; Exploratory laparotomy; ablation ll1 (Exploratory laparotomy); - Immunization history:: Adult Immunizations up to date. - Infectious Disease History:: Denies. - Social history:: Smoking status: Patient denies any tobacco usage or history of. ROS: 15:20 Constitutional: Negative for body aches, chills, fever, poor PO intake, cp 15:20 Eyes: Negative for injury, pain, redness, and discharge, cp 15:20 ENT: Negative for drainage from ear(s), ear pain, sore throat, difficulty swallowing, difficulty handling secretions, 15:20 Cardiovascular: Negative for chest pain, palpitations, 15:20 Respiratory: Positive for shortness of breath, Negative for cough, wheezing, 15:20 Abdomen/GI: Positive for abdominal pain, 15:20 Back: Positive for pain at rest, pain with movement, 15:20 Neuro: Positive for weakness, Negative for altered mental status, syncope, near syncope, 15:20 All other systems are negative, Exam: 15:20 ECG was reviewed by the Attending Physician. cp 15:25 Constitutional: The patient appears in no acute distress, alert, awake, cp non-diaphoretic, non-toxic, well developed, well nourished, uncomfortable, 15:25 Head/Face: Normocephalic, atraumatic. cp 15:25 Eyes: Periorbital structures: appear normal, Pupils: equal, round, and reactive to light and accomodation, Extraocular movements: intact throughout, Conjunctiva: normal, no exudate, no injection, Sclera: no appreciated abnormality, Lids and lashes: appear normal, bilaterally, 15:25 ENT: External ear(s): are unremarkable, Nose: is normal, Mouth: Lips: moist, Oral mucosa: moist, Posterior pharynx: Airway: no evidence of obstruction, patent, 15:25 Chest/axilla: Inspection: normal, 15:25 Cardiovascular: Rate: normal, Rhythm: regular, Edema: is not appreciated, JVD: is not appreciated, 15:25 Respiratory: the patient does not display signs of respiratory distress, Respirations: labored breathing, that is mild, shallow respirations, that is mild, Breath sounds: decreased breath sounds, that are mild, throughout, stridor, is not appreciated, wheezing: is not appreciated, 15:25 Abdomen/GI: Inspection: abdomen appears normal, Bowel sounds: active, all quadrants, Palpation: soft, in all quadrants, mild abdominal tenderness, in all quadrants, 15:25 Back: pain, that is moderate, of the right scapular area, ROM is painful, with all movement, vertebral tenderness, is not appreciated, 15:25 Musculoskeletal/extremity: Exam is negative for decreased range of motion, deformity, 15:25 Neuro: Orientation: to person, place, situation, Mentation: able to follow commands, Motor: moves all fours, no focal deficits, Sensation: no obvious gross deficits, Vital Signs: 14:58 BP 138 / 52; Pulse 81; Resp 18; Temp 97.1; Pulse Ox 90% on R/A; Weight 67.13 kg; Height ll1 5 ft. 2 in. ; Pain 7/10; 15:45 BP 139 / 56; Pulse 77; Resp 18; Pulse Ox 97% on 2 lpm NC; ar8 17:07 BP 154 / 67; Pulse 77; Resp 19; Pulse Ox 100% on currently receiving neb tx; Pain 7/10; ar8 17:37 Pulse Ox 84% on R/A; ar8 17:39 BP 145 / 55; Pulse 74; Resp 16; Pulse Ox 94% on 2 lpm NC; ar8 18:43 BP 126 / 89; Pulse 76; Resp 22; Pulse Ox 95% on 2 lpm NC; ar8 21:22 BP 153 / 73; Pulse 89; Resp 15; Temp 98.9; Pulse Ox 98% on NC; 3 07/08 00:21 BP 143 / 71; Pulse 70; Resp 19; Pulse Ox 96% on R/A; 3 01:09 BP 136 / 65; Pulse 67; Resp 17; Temp 97.8; Pulse Ox 98% on NC; 3 07/07 14:58 Body Mass Index 27.07 (67.13 kg, 157.48 cm) ll1 07/07 14:58 Pain Scale: Adult ll1 17:07 Pain Scale: Adult ar8 MDM: 07/07 15:00 Medical Screening Exam initiated christ 16:00 Differential diagnosis: Anemia Bronchitis pneumonia, Pneumothorax pulmonary edema, cp Pulmonary Embolism Sepsis. 19:30 Management of patient was discussed with the following: Hospitalist: MR Fuentes with cp recommendation of admission for transfusion and continued care. 22:25 ED course: patient seen and evaluated by hsopitalist MR Fuentes who recommends transfer cp for GI services due to hemoglobin of 7. 23:30 Data reviewed: vital signs, nurses notes, lab test result(s), radiologic studies, CT cp scan, plain films, and as a result, I will transfer patient. 23:30 Antibiotic administration: Levaquin given. I considered the following discharge cp prescriptions or medication management in the emergency department Medications were administered in the Emergency Department. See MAR. Care significantly affected by the following chronic conditions: [place]'s disease, dementia. Counseling: I had a detailed discussion with the patient and/or guardian regarding the historical points, exam findings, and any diagnostic results supporting the discharge/admit diagnosis, lab results, radiology results, the need to transfer to another facility, [facility] does not immediately have the required specialist, GI services due to decrease in hemoglobin from 11 on 05-23-2025 to 7 today and request by hospitalist. Response to treatment: the patient's symptoms have mildly improved after treatment. 23:32 ED course: consult with hospitalist at [facility], DR Spence, concerning results of cp today's testing and request for GI services who will accept transfer. 07/07 15:18 Order name: Basic Metabolic Panel; Complete Time: 17:39 cp 07/07 17:40 Interpretation: Normal except: K 2.7; GLUC 156; GFR 71. cp 07/07 15:18 Order name: CBC with Diff; Complete Time: 17:39 cp 07/07 17:02 Interpretation: Normal except: RBC 2.94; HGB 7.1; HCT 21.8; MCV 74.1; MCH 24.2; RDW cp 19.3; STIVEN% 89.9; LYM% 3.7; NEUT A 9.7; LYMA 0.4. 07/07 15:18 Order name: LFT's; Complete Time: 17:39 cp 07/07 15:18 Order name: Magnesium; Complete Time: 17:39 cp 07/07 15:18 Order name: NT PRO-BNP; Complete Time: 17:39 cp 07/07 15:18 Order name: PT-INR; Complete Time: 17:02 07/07 15:18 Order name: Troponin HS; Complete Time: 17:39 cp 07/07 15:18 Order name: COVID-19 Ag + Flu A+B Ag; Complete Time: 17:39 cp 07/07 16:52 Order name: CBC Smear Scan; Complete Time: 17:39 EDGA 07/07 19:28 Order name: Lactate w/ 2H reflex if indic.; Complete Time: 23:20 cp 07/07 19:28 Order name: Blood Culture Adult (2) cp 07/07 19:28 Order name: Type And Screen 07/07 23:49 Order name: Packed RBC Leukored EDGA 07/07 15:18 Order name: XRAY Chest (1 view); Complete Time: 19:20 cp 07/07 15:26 Order name: CT Head C Spine; Complete Time: 19:20 cp 07/07 15:26 Order name: CT Chest For PE Angio; Complete Time: 19:20 cp 07/07 19:21 Interpretation: Report reviewed. 07/07 15:26 Order name: CT Abd/Pelvis - IV Contrast Only; Complete Time: 19:20 cp 07/07 15:18 Order name: Cardiac monitoring; Complete Time: 15:36 cp 07/07 15:18 Order name: EKG - Nurse/Tech; Complete Time: 15:36 cp 07/07 15:18 Order name: IV Saline Lock; Complete Time: 16:40 cp 15 15:18 Order name: Labs collected and sent; Complete Time: 16:41 cp 15 15:18 Order name: O2 Per Protocol; Complete Time: 15:36 cp 15 15:18 Order name: O2 Sat Monitoring; Complete Time: 15:36 cp EC:20 Rate is 79 beats/min. Rhythm is regular. WA interval is prolonged at 310 msec. QRS cp interval is prolonged at 108 msec. QT interval is prolonged at 500 msec. Interpreted by me. Reviewed by me. Administered Medications: 16:52 Drug: Ondansetron IVP 4 mg IVP once; over 2 minutes Route: IVP; Site: right upper arm; ar8 18:17 Follow up: Response: No adverse reaction ar8 16:54 Drug: fentaNYL (PF) IVP 25 mcg IVP once Route: IVP; Site: right upper arm; ar8 18:17 Follow up: Response: No adverse reaction ar8 16:56 Drug: DuoNeb Nebulize (2.5 mg - 0.5 mg) 3 ml Nebulizer once Route: Nebulizer; ar8 18:17 Follow up: Response: No adverse reaction; Marked relief of symptoms ar8 16:58 Drug: Solu-CORTEF IVP 100 mg IVP once Route: IVP; Site: right upper arm; ar8 18:17 Follow up: Response: No adverse reaction ar8 21:20 Drug: Potassium Chloride IV 20 mEq IV at calculated rate once; administer over 1-2 mf3 hours Route: IV; Rate: calculated rate; Site: right upper arm; 23:15 Follow up: Response: No adverse reaction; IV Status: Completed infusion cp4 21:21 Drug: levofloxacin IVPB 750 mg 150 ml IVPB once over 90 mins Volume: 150 ml; Route: mf3 IVPB; Infused Over: 90 mins; Site: right forearm; 22:40 Follow up: Response: No adverse reaction; IV Status: Completed infusion mf3 21:21 Drug: Potassium PO Effervescent Tablet 50 mEq PO once; dissolve in 4 ounces of water or mf3 juice Route: PO; 21:43 Follow up: Response: No adverse reaction 3 21:43 Drug: fentaNYL (PF) IVP 25 mcg IVP once Route: IVP; Site: right forearm; mf3 22:00 Follow up: Response: No adverse reaction mf3 Disposition Summary: 07/07/25 23:27 Transfer Ordered Notes: Transfer Location: [facility] cp Reason: Higher level of care cp Condition: Stable(07/07/25 23:27) cp Problem: new(07/07/25 23:27) cp Symptoms: have improved(07/07/25 23:27) cp Accepting Physician: Doctor(07/08/25 01:34) cp4 Diagnosis - Weakness(07/07/25 23:27) cp - Hypokalemia(07/07/25 23:27) cp - Anemia in other chronic diseases classified elsewhere(07/07/25 23:27) cp - Hypoxemia cp - Other pneumonia, unspecified organism cp Forms: - Medication Reconciliation Form cp - SBAR form cp Addendum: 07/11/2025 13:51 Co-signature as Attending Physician, Fletcher Pruitt MD I agree with the assessment and c garibay plan of care. Signatures: Dispatcher [employer] EDFletcher Patterson MD MD cha Page, Corey, PA-C PA-C Michael Mcdowell, RN RN ll1 Yany Juárez cp4 Gera Dahl, RN RN ar8 Edie Rivera, RN RN mf3 Corrections: (The following items were deleted from the chart) 07/07 15:19 15:19 Chest Single View+RAD.RAD.BRZ ordered. EDGA EDMS 15:26 15:26 Chest For PE Angio+CT.RAD.BRZ ordered. EDMS EDMS 15:26 15:26 Abdomen Pelvis W Con+CT.RAD.BRZ ordered. EDGA EDMS 19:28 19:28 LACTATE+C.LAB.BRZ ordered. EDMS EDMS 19:28 19:28 BLOOD CULTURE*+BA.LAB.BRZ ordered. EDMS EDMS 19:28 19:28 TYPE AND SCREEN+BB.LAB.BRZ ordered. EDGA EDMS 23:25 20:10 Inpatient Admission cp cp 23:25 20:10 Ward Fuentes cp cp 23:25 20:10 Telemetry/MedSurg (Inpatient) cp cp 23:25 20:10 Stable cp cp 23:25 20:10 new cp cp : 20:10 have improved cp cp : 20:10 Standard cp cp : 20:10 cp cp : 20:10 Anemia in other chronic diseases classified elsewhere cp cp : 20:10 Weakness cp cp : 20:10 Repeated falls cp cp : 21:54 Hypokalemia cp cp 07/08 01:34 07/07 23:27 Doctor cp cp4
--- NOTE | 2025-07-07 20:11 | ER ---
Nurse's Notes [facility] Name: Dulce Cerna Age: 69 yrs Sex: Female : 1955 Arrival Date: 07/07/2025 Time: 14:48 Bed 3 Private MD: Diagnosis: Weakness;Hypokalemia;Anemia in other chronic diseases classified elsewhere;Hypoxemia;Other pneumonia, unspecified organism Presentation: 07/07 14:58 Chief complaint: Patient states: R sided trunk and back pain from previous falls last ll1 week. SOB with exertion for 2 days. Coronavirus screen: Client denies travel out of the [place] in the last 14 days. At this time, the client does not indicate any symptoms associated with coronavirus-19. Ebola Screen: Patient denies travel to an Ebola-affected area in the 21 days before illness onset. Initial Sepsis Screen: Does the patient meet any 2 criteria? No. Patient's initial sepsis screen is negative. Does the patient have a suspected source of infection? No. Patient's initial sepsis screen is negative. Risk Assessment: Do you want to hurt yourself or someone else? Patient reports no desire to harm self or others. Onset of symptoms was July 06, 2025. 14:58 Method Of Arrival: Wheelchair ll1 14:58 Acuity: TRACY 2 ll1 Triage Assessment: 14:58 General: Appears uncomfortable, Behavior is calm, cooperative, appropriate for age. ll1 Pain: Complains of pain in R trunk Quality of pain is described as aching. Respiratory: Reports shortness of breath on exertion Onset: The symptoms/episode began/occurred yesterday, the patient has moderate shortness of breath. Musculoskeletal: Reports R trunk pain. Historical: - Allergies: 14:58 PENICILLINS; ll1 14:58 Sulfa (Sulfonamide Antibiotics); ll1 - PMHx: 14:58 Hyperlipidemia; Chronic pain; Irritable bowel syndrome; Depression; Early Dementia; ll1 addisons; TIA; - PSHx: 14:58 Cholecystectomy; endometriosis; Appendectomy; Exploratory laparotomy; ablation ll1 (Exploratory laparotomy); - Immunization history:: Adult Immunizations up to date. - Infectious Disease History:: Denies. - Social history:: Smoking status: Patient denies any tobacco usage or history of. Screenin:10 [facility] ED Fall Risk Assessment (Adult) History of falling in the last 3 months, ar8 including since admission Yes- fall prone (multiple falls) (3 pts) Confusion or Disorientation No (0 pts) Intoxicated or Sedated No (0 pts) Impaired Gait Yes (1 pt) Mobility Assist Device Used Yes (1 pt) Altered Elimination No (0 pt) Score/Fall Risk Level 3 or more points = High Risk Oriented to surroundings, Maintained a safe environment. Abuse screen: Denies threats or abuse. Nutritional screening: No deficits noted. Tuberculosis screening: No symptoms or risk factors identified. Assessment: 15:10 General: Appears distressed, Behavior is cooperative. Pain: Complains of pain in right ar8 subscapular area and abdomen. Neuro: No deficits noted. Level of Consciousness is awake, alert, obeys commands, Oriented to person, place, time, situation. Cardiovascular: No deficits noted. Rhythm is sinus rhythm. Respiratory: Reports shortness of breath on exertion Airway is patent Respiratory effort is labored, Respiratory pattern is tachypnea Breath sounds with crackles bilaterally. 15:10 GI: Reports RUQ pain- patient states she fell against a bookcase two days ago hitting ar8 her right side. Derm: Bruising that is dark purple, brown, yellow, to right side of mid back. Musculoskeletal: Tenderness present in right subscapular area. Vital Signs: 14:58 BP 138 / 52; Pulse 81; Resp 18; Temp 97.1; Pulse Ox 90% on R/A; Weight 67.13 kg; Height ll1 5 ft. 2 in. ; Pain 7/10; 15:45 BP 139 / 56; Pulse 77; Resp 18; Pulse Ox 97% on 2 lpm NC; ar8 17:07 BP 154 / 67; Pulse 77; Resp 19; Pulse Ox 100% on currently receiving neb tx; Pain 7/10; ar8 17:37 Pulse Ox 84% on R/A; ar8 17:39 BP 145 / 55; Pulse 74; Resp 16; Pulse Ox 94% on 2 lpm NC; ar8 18:43 BP 126 / 89; Pulse 76; Resp 22; Pulse Ox 95% on 2 lpm NC; ar8 21:22 BP 153 / 73; Pulse 89; Resp 15; Temp 98.9; Pulse Ox 98% on NC; mf3 07/08 00:21 BP 143 / 71; Pulse 70; Resp 19; Pulse Ox 96% on R/A; mf3 01:09 BP 136 / 65; Pulse 67; Resp 17; Temp 97.8; Pulse Ox 98% on NC; 3 07/07 14:58 Body Mass Index 27.07 (67.13 kg, 157.48 cm) ll1 07/07 14:58 Pain Scale: Adult ll1 17:07 Pain Scale: Adult ar8 ED Course: 07/07 14:54 Patient arrived in ED. al6 14:55 Fletcher Lerma PA is PHCP. cp 14:55 Fletcher Pruitt MD is Attending Physician. cp 14:58 Arm band placed on. ll1 15:00 Triage completed. ll1 15:10 Bed in low position. Call light in reach. Side rails up X2. Provided Education on: plan ar8 of care. 15:10 No provider procedures requiring assistance completed. Missed attempt(s): 22 gauge in ar8 right forearm. Bleeding controlled, band aid applied, catheter tip intact. 15:20 EKG done, by ED staff, reviewed by Fletcher ALCOCER. ar8 15:21 Gera Dahl, RN is Primary Nurse. ar8 16:17 XRAY Chest (1 view) In Process Unspecified. EDMS 16:38 Inserted saline lock: 22 gauge in right upper arm, using aseptic technique. Flushed aa5 with 10 mL NS. 16:38 Initial lab(s) drawn, by va, sent to lab. aa5 17:07 COVID-19 Ag + Flu A+B Ag Sent. ar8 17:32 CT Head C Spine In Process Unspecified. EDMS 17:32 CT Chest For PE Angio In Process Unspecified. EDMS 17:32 CT Abd/Pelvis - IV Contrast Only In Process Unspecified. EDMS 20:09 Ward Fuentes, RN is Hospitalizing Provider. cp 21:10 Inserted saline lock: 20 gauge in right antecubital area, using aseptic technique. bm8 ,using aseptic technique. ultrasound guided Blood collected. Flushed with 10 mL NS. 21:21 Inserted saline lock: 20 gauge in right forearm, using aseptic technique. 3 21:51 Sister Yashira [phone] call when Hospitalist makes decision about hospitalization. rv1 07/08 01:01 initiated transfer with Mili \T\ 2240. Pt was accepted by Dr. Spence, N \T\8002. Mili ovalles leny J \T\6002. Number for nurse to nurse report [phone]. [facility] to transfer pt once nurse to nurse is complete. 01:33 Patient transferred, IV remains in place. cp4 Administered Medications: 07/07 16:52 Drug: Ondansetron IVP 4 mg IVP once; over 2 minutes Route: IVP; Site: right upper arm; ar8 18:17 Follow up: Response: No adverse reaction ar8 16:54 Drug: fentaNYL (PF) IVP 25 mcg IVP once Route: IVP; Site: right upper arm; ar8 18:17 Follow up: Response: No adverse reaction ar8 16:56 Drug: DuoNeb Nebulize (2.5 mg - 0.5 mg) 3 ml Nebulizer once Route: Nebulizer; ar8 18:17 Follow up: Response: No adverse reaction; Marked relief of symptoms ar8 16:58 Drug: Solu-CORTEF IVP 100 mg IVP once Route: IVP; Site: right upper arm; ar8 18:17 Follow up: Response: No adverse reaction ar8 21:20 Drug: Potassium Chloride IV 20 mEq IV at calculated rate once; administer over 1-2 mf3 hours Route: IV; Rate: calculated rate; Site: right upper arm; 23:15 Follow up: Response: No adverse reaction; IV Status: Completed infusion 4 21:21 Drug: levofloxacin IVPB 750 mg 150 ml IVPB once over 90 mins Volume: 150 ml; Route: mf3 IVPB; Infused Over: 90 mins; Site: right forearm; 22:40 Follow up: Response: No adverse reaction; IV Status: Completed infusion 3 21:21 Drug: Potassium PO Effervescent Tablet 50 mEq PO once; dissolve in 4 ounces of water or mf3 juice Route: PO; 21:43 Follow up: Response: No adverse reaction 3 21:43 Drug: fentaNYL (PF) IVP 25 mcg IVP once Route: IVP; Site: right forearm; mf3 22:00 Follow up: Response: No adverse reaction 3 Medication: 15:10 VIS not applicable for this client. ar8 Outcome: 20:10 Decision to Hospitalize by Provider. cp 23:27 ER care complete, transfer ordered by MD. garcia 07/08 01:29 Transferred by ground EMS to [facility], Transfer form completed. cp4 X-rays sent w/ patient. Condition: stable 01:32 Instructed on the need for transfer, cp4 01:34 Patient left the ED. cp4 Signatures: Dispatcher [employer] EDCherise Kwon, RN RN aa5 Fletcher Lerma, TAMMY PAMichael Silva cp, RN RN ll1 Sara Burch Christina cp4 Elza Vegas [facility] Dhaval Quiles RN RN bm8 Krystal Gamez6 Gera Dahl RN RN ar8 Edie Rivera RN RN mf3 Corrections: (The following items were deleted from the chart) 07/07 21:57 21:22 BP 151 / ???; Pulse 89bpm; Resp 15bpm; Pulse Ox 98% Nasal Cannula; Temp 98.9F; [id number] 07/08 01:33 01:29 Discharge instructions given to patient, Instructed on Demonstrated understanding cp4 of instructions, follow-up care, cp4
[2025-07-07] MEDS ORDERED: KCL 20 MEQ/100 mL IVPB 100 ML IV ONE (21:12)
[2025-07-07] MEDS ORDERED: POTASSIUM 25 MEQ EFFERV TAB ONE (21:12)
[2025-07-07] MEDS ORDERED: NA CHLORIDE 0.9% 1,000 ML ONE (21:12)
[2025-07-07] MEDS ORDERED: Levofloxacin 750mg IV 750 MG/150 ML BAG IV ONE (21:13)
[2025-07-07] MEDS ORDERED: NA CHLORIDE 0.9% 250 ML ONE (23:43)
[2025-07-08 08:13] VITALS: BP 136/65; TEMP 97.8; O2SAT 98
== END 2025-07-08 01:34 | disposition short-term general hospital (02) ==
LOC: ER 14:48
PROC: 30233N1 Transfusion of Nonautologous Red Blood Cells into Peripheral Vein, Percutaneous Approach (ICD-10-PCS; principal; 2025-07-08)
DX: D64.9 Anemia, unspecified (principal); E87.6 Hypokalemia; J18.8 Other pneumonia, unspecified organism; R09.02 Hypoxemia; Z11.52 Encounter for screening for COVID-19
CPT/HCPCS: 93005; 87040 ×2; 85025; 80048; 36415; 86900; 83735; 86850; 85610; 86901; 80076; 83605; 86920; 84484; 83880; 70450; 72125; 71275; 74177; 71045; 99285; 87428; 36430; Q9967; J3480; J7613; J7644; J3010 ×2; J1720; J2405; P9016; J7050; J7030

== ENCOUNTER 2025-07-14 06:40 | Emergency (ER) | payer OTHER ==
[2025-07-14] MEDS ORDERED: IBUPROFEN 400 MG TAB ONE (07:02)
[2025-07-14] MEDS ORDERED: NA CHLORIDE 0.9% 2,000 ML ONE (07:03)
[2025-07-14] MEDS ORDERED: CEFEPIME 2 GM VIAL ONE (07:03)
[2025-07-14] MEDS ORDERED: VANCOMYCIN 1 GM/VIAL ONE (07:03)
[2025-07-14] MEDS ORDERED: ACETAMINOPHEN 500 MG TAB ONE ×2 (07:28→07:33)
[2025-07-14 07:41] LABS: Absolute Lymphocytes (CBC) 0.6 K/uL (0.7-4.9); Hematocrit 34.5 % (36.0-45.0); Hemoglobin 11.7 g/dL (12.0-15.0); MCH 26.3 pg (27.0-35.0); MCHC 34.0 g/dL (32.0-36.0); MCV 77.3 fL (80-100); MPV 7.7 fL (7.6-11.3); Nucleated RBC Absolute Count 0.0 (0-0); Nucleated Red Blood Cells % 0.1 % (0-0); RBC Red Blood Cell Count 4.47 M/uL (3.86-4.86); White Blood Count 8.50 thou/uL (4.3-10.9)
[2025-07-14 07:50] LABS: PT Prothrombin Time 19.6 SECONDS (10-13.0); PTT, Activated Partial Thromb 35.7 SECONDS (27.2-37.4); Protime INR 1.76
[2025-07-14 07:59] LABS: Influenza A Ag Negative; Influenza B Ag Negative
[2025-07-14 08:01] LABS: SARS-CoV-2 Antigen Rapid Res Positive (Negative)
--- NOTE | 2025-07-14 08:36 | RAD REPORT ---
EXAMINATION: CT Abdomen Pelvis Wo Contrast CLINICAL INDICATION: Female, 69 years old. Flank pain;Fever TECHNIQUE: CT abdomen and pelvis was performed, without IV contrast, as per department protocol. Axia l, sagittal and coronal reconstructions were obtained. One or more of the following dose reduction techniques were used: Automated exposure control, adjustment of the mA and kV according to the patien t size, and iterative reconstruction. Unless otherwise specified, incidental findings do not require dedicated imaging follow-up. COMPARISON: 07/07/2025 FINDINGS: The lack of intravenous contrast limits the sensitivity of this exam for evaluation of solid visceral organs, vascular structures, and retroperitoneum. LOWER CHEST: Small layering pleural effusions LIVER: Normal in size and contour. No focal lesion. BILIARY SYSTEM: Status post cholecystectomy. Limited Central pneumobilia SPLEEN: Normal size. No focal lesion. PANCREAS: No mass, ductal dilation, or haylee-pancreatic fluid. ADRENALS: Normal; no mass. KIDNEYS AND URETERS: Normal size and contour. Large right upper pole calyceal calculus measuring up t o. No hydronephrosis. URINARY BLADDER: Normal contour. GASTROINTESTINAL TRACT: No evidence of bowel obstruction, significant free fluid, free air or abscess . Moderate to large burden most notably along the transverse colon APPENDIX: Appendix not visualized, but no inflammatory changes in region of appendix. LYMPH NODES: No lymphadenopathy. MUSCULOSKELETAL: No acute or suspicious osseous abnormality. ADDITIONAL FINDINGS: Status post hysterectomy. IMPRESSION: Large nonobstructing right upper renal pole calculus. Moderate to large stool burden most notably along the transverse colon. No other acute or suspicious findings
--- NOTE | 2025-07-14 08:42 | RAD REPORT ---
EXAM: CT brain without contrast HISTORY: fall at home COMPARISON: 07/07/2025 TECHNIQUE: Multiple contiguous axial images were obtained and a CT of the brain without contrast. Sag ittal and coronal reformats were performed. FINDINGS: No evidence of hydrocephalus, intracranial hemorrhage, or extra-axial fluid collection. Moderate brain atrophy with moderate periventricular and deep white matter chronic microvascular isc hemic changes present. The calvarium is intact. The visualized paranasal sinuses and mastoid air cells are essentially clear . IMPRESSION: No evidence of acute intracranial abnormality. Table chronic findings as above. EXAM: CT of the cervical spine without contrast HISTORY: fall at home COMPARISON: None TECHNIQUE: Multiple contiguous axial images were obtained in a CT of the cervical spine without contr ast. Sagittal and coronal reformats were performed. FINDINGS: The vertebral bodies demonstrate normal height and alignment. No evidence of acute fracture or subluxation.. No degenerative changes or mild to moderate osseous remodeling at the atlantoodontoid articulation. No prevertebral soft tissue swelling is seen. The posterior facets are well aligned. Normal alignment of the skull base with the cervical spine is seen. Interstitial coarsening and patchy groundglass attenuation worse on the left upper lung. Appearance i s much improved since the prior exam. Hypoattenuating right thyroid 8 mm nodule with focus of calcification, not well evaluated. IMPRESSION: No evidence of acute osseous abnormality of the cervical spine. Improving or suspicious coarsening groundglass opacities in the upper lungs, could relate to improvin g pulmonary edema or nonspecific pneumonitis. Right thyroid lobe 8 mm hypoattenuating of calcification, not. May benefit from dedicated thyroid ult rasound evaluation not previously performed.
[2025-07-14 08:56] LABS: Sqamous Epithelial <5 /HPF (None Seen); Urine Culture Reflex Order NOT NEEDED; Urine Microscopic Reflex YN ORDER UMIC
--- NOTE | 2025-07-14 09:02 | RAD REPORT ---
EXAMINATION: ONE VIEW CHEST XR CLINICAL INDICATION: Female, 69 years old.,sepsis TECHNIQUE: Frontal chest projection is submitted. Examination is limited by patient positioning and t echnique. COMPARISON: 07/07/2025 FINDINGS: Interstitial coarsening and architectural distortion involving the left upper to midlung and right up per lung, with overall mildly improved underlying left upper lobe. Central interstitial prominence again seen. No pneumothorax or sizable effusion. The heart is normal in size. Mediastinal contours a re unremarkable. IMPRESSION: Partial improvement of predominantly interstitial left upper to midlung and right upper lung opacitie s, could reflect combined alveolar and interstitial infectious or inflammatory process. Underlying congestive changes should also be considered.
--- NOTE | 2025-07-14 09:03 | RAD REPORT ---
EXAMINATION: XR PELVIS CLINICAL INDICATION: Female, 69 years old. [facility] acute fall Bed Name: 17 TECHNIQUE: AP Pelvis radiograph was obtained. COMPARISON: No prior exam. FINDINGS: No evidence of fracture or dislocation. Normal alignment. No evidence of AVN. Soft tissues are unremarkable. IMPRESSION: No acute or significant abnormalities.
[2025-07-14 11:06] LABS: ALT/SGPT 25.0 U/L (13-56); AST/SGOT 29.0 U/L (15-37); Albumin 2.6 g/dL (3.4-5.0); Albumin/Globulin Ratio 0.7 (1.1-1.8); Alkaline Phosphatase 97.0 U/L (45-117); Anion Gap 5.5 mEq/L (5.0-15.0); BUN Blood Urea Nitrogen 13.0 mg/dL (7-18); Globulin 3.9 g/dL (2.3-3.5); Glucose Level 90.0 mg/dL (74-106); NT PRO-BNP 2574.0 pg/mL (<125); Troponin High Sensitivity 29.9 pg/mL (<58.9)
[2025-07-14 11:09] LABS: Potassium 2.5 mEq/L (3.5-5.1)
--- NOTE | 2025-07-14 11:18 | ER ---
Nurse's Notes [facility] Name: Dulce Cerna Age: 69 yrs Sex: Female : 1955 Arrival Date: 07/14/2025 Time: 06:40 Bed 17 Private MD: Diagnosis: COVID-19, viral illness, hypokalemia Presentation: 07/14 06:44 Chief complaint: EMS states: patient found on the floor at home, patient experiencing al5 lower back pain, fever, lethargy. Coronavirus screen: fever, lethargy. Ebola Screen: No symptoms or risks identified at this time. Initial Sepsis Screen: Does the patient meet any 2 criteria? Temp <36.0*C (96.8*F)) or > 38.3*C (100.9*F). Altered Mental Status. Yes Does the patient have a suspected source of infection? No. Patient's initial sepsis screen is negative. Risk Assessment: Do you want to hurt yourself or someone else? Patient reports no desire to harm self or others. Onset of symptoms was July 14, 2025. 06:44 Method Of Arrival: EMS: [facility] al5 06:44 Acuity: TRACY 3 al5 06:44 Care prior to arrival: Medication(s) given: Tylenol, 975 mg Glucose check: 101. al5 Triage Assessment: 06:46 General: Appears in no apparent distress. comfortable, Behavior is calm, cooperative. al5 Pain: Complains of pain in low back area. EENT: No signs and/or symptoms were reported regarding the EENT system. Neuro: Level of Consciousness is awake, obeys commands, confused, Oriented to person. Cardiovascular: Patient's skin is warm and dry. Respiratory: Airway is patent Respiratory effort is even, unlabored, Respiratory pattern is regular, symmetrical. GI: Abdomen is flat, non-distended. : No signs and/or symptoms were reported regarding the genitourinary system. Derm: Skin is intact, Skin is pink, warm \T\ dry. normal. Musculoskeletal: Circulation, motion, and sensation intact. Range of motion:. Historical: - Allergies: 06:46 PENICILLINS; al5 06:46 Sulfa (Sulfonamide Antibiotics); al5 07:31 NSAIDS; hb - PMHx: 06:46 addisons; Chronic pain; Depression; Early Dementia; Hyperlipidemia; Irritable bowel al5 syndrome; TIA; - PSHx: 06:46 ablation (at); Appendectomy; Cholecystectomy; endometriosis; Exploratory laparotomy; al5 - Immunization history:: Adult Immunizations up to date. - Infectious Disease History:: Denies. - Social history:: Smoking status: Patient denies any tobacco usage or history of. - Family history:: not pertinent. Screenin:48 [facility] ED Fall Risk Assessment (Adult) History of falling in the last 3 months, al5 including since admission No falls in past 3 months (0 pts) Confusion or Disorientation Yes (5 pts) Intoxicated or Sedated No (0 pts) Impaired Gait Yes (1 pt) Mobility Assist Device Used Yes (1 pt) Altered Elimination No (0 pt) Score/Fall Risk Level 3 or more points = High Risk Oriented to surroundings, Maintained a safe environment, Hourly rounding (assess needs \T\ fall precautionary measures) done. Abuse screen: Denies threats or abuse. Denies injuries from another. Nutritional screening: No deficits noted. Tuberculosis screening: No symptoms or risk factors identified. Assessment: 06:48 Reassessment: see triage assessment. al5 07:00 General: Appears in no apparent distress. Behavior is calm, cooperative, appropriate ll1 for age, Reports fever for fatigue for. Pain: Complains of pain in low back area Quality of pain is described as aching. Neuro: Reports weakness. Musculoskeletal: Reports pain in low back area. 08:15 Reassessment: No changes from previously documented assessment. Patient and/or family ll1 updated on plan of care and expected duration. Pain level reassessed. 11:52 Reassessment: No changes from previously documented assessment. Patient and/or family ll1 updated on plan of care and expected duration. Pain level reassessed. Patient is alert, oriented x 3, equal unlabored respirations, skin warm/dry/pink. Vital Signs: 06:44 BP 161 / 62; Pulse 77; Resp 16; Temp 102.1(O); Pulse Ox 95% on 3 lpm NC; Weight 64.5 al5 kg; Height 5 ft. 2 in. ; 08:14 BP 119 / 43; Pulse 80; Resp 17; Temp 98.7; Pulse Ox 99% ; ll1 09:53 BP 119 / 54; Pulse 64; Resp 16; Pulse Ox 100% ; ll1 11:35 BP 135 / 70; Pulse 58; Resp 16; Pulse Ox 100% ; ll1 06:44 Body Mass Index 26.01 (64.50 kg, 157.48 cm) al5 [place] Coma Score: 06:47 Eye Response: spontaneous(4). Motor Response: obeys commands(6). Verbal Response: sp4 confused(4). Total: 14. ED Course: 06:43 Patient arrived in ED. al5 06:46 Triage completed. al5 06:46 Keron Varner MD is Attending Physician. sp4 06:46 Arm band placed on right wrist. Patient placed in the treatment room, in view of staff al5 members, on oxygen, on cardiac monitor technician, on pulse oximetry. 06:48 Patient has correct armband on for positive identification. Bed in low position. Call al5 light in reach. Side rails up X2. 06:48 No provider procedures requiring assistance completed. al5 07:03 Attending Physician role handed off by Keron Varner MD sp3 07:03 Melisa Vital MD is Attending Physician. sp3 07:05 Provided Education on: ER procedures and process. ll1 07:26 Michael Godfrey, RN is Primary Nurse. ll1 07:31 Initial lab(s) drawn, by me, sent to lab. hb 07:31 EKG done, by ED staff, reviewed by Melisa Vital MD. hb 07:38 COVID-19 Ag + Flu A+B Ag Sent. ll1 07:52 CT Head C Spine In Process Unspecified. EDMS 07:52 CT Abd/Pelvis - Without Contrast In Process Unspecified. EDMS 08:11 Chest Single View XRAY In Process Unspecified. EDMS 08:11 Pelvis XRAY In Process Unspecified. EDMS 09:29 Missed attempt(s): 20 gauge in right foot. 22 gauge in left Breast. Bleeding cm10 controlled, band aid applied, catheter tip intact. 11:52 Patient did not have IV access during this emergency room visit. ll1 Administered Medications: 07:32 Not Given (Patient Refused): [id number] mg PO once hb 07:37 Drug: Acetaminophen PO 1000 mg PO once Route: PO; ll1 11:22 Follow up: Response: No adverse reaction; Temperature is decreased ll1 08:04 Not Given (Physician Discretion): vancomycin1 grams IVPB once over 2 hrs ll1 08:05 Not Given (Physician Discretion): cefepime2 grams IVPB at 200 ml/hr once over 30 mins; ll1 (mix in NS 100 mL) 08:15 Not Given (Physician Discretion): ns 0.9% (30 ml/kg) 30 ml/kg IV at bolus once; Sepsis ll1 Protocol; to be given as a bolus over 90 minutes 11:35 Drug: Potassium PO Effervescent Tablet 50 mEq PO once; dissolve in 4 ounces of water or ll1 juice Route: PO; 11:53 Follow up: Response: No adverse reaction ll1 Medication: 06:48 VIS not applicable for this client. al5 Outcome: 11:18 Discharge ordered by . sp3 11:52 Discharged to home via wheelchair, 1 11:52 Condition: stable 11:52 Discharge instructions given to patient, family, Instructed on discharge instructions, follow up and referral plans. medication usage, Demonstrated understanding of instructions, follow-up care, medications, Prescriptions given X 1, 11:53 Patient left the ED. ll1 Signatures: Dispatcher [employer] EDMS Humaira King RN RN Michael Leone RN RN ll1 Melisa Vital MD MD sp3 Keron Varner MD MD sp4 Kelly Seals, RN RN cm10 Elodia Pro RN RN al5
--- NOTE | 2025-07-14 11:18 | EDPHYS ---
Physician Documentation [facility] Name: Dulce Cerna Age: 69 yrs Sex: Female : 1955 Arrival Date: 07/14/2025 Time: 06:40 Bed 17 Private MD: ED Physician Melisa Vital HPI: 07/14 06:46 This 69 yrs old Female presents to ER via EMS with complaints of Altered sp4 Mental Status, Low Back Pain. 20:45 69-year-old female brought in with complaint of mental status changes, fever, low back sp4 pain.. Historical: - Allergies: 06:46 PENICILLINS; al5 06:46 Sulfa (Sulfonamide Antibiotics); al5 07:31 NSAIDS; hb - PMHx: 06:46 addisons; Chronic pain; Depression; Early Dementia; Hyperlipidemia; Irritable bowel al5 syndrome; TIA; - PSHx: 06:46 ablation (at); Appendectomy; Cholecystectomy; endometriosis; Exploratory laparotomy; al5 - Immunization history:: Adult Immunizations up to date. - Infectious Disease History:: Denies. - Social history:: Smoking status: Patient denies any tobacco usage or history of. - Family history:: not pertinent. ROS: 06:47 Constitutional: Positive for acute fever, confusion, fall at home. sp4 06:47 All other systems are negative, Exam: 06:47 Constitutional: This is a well developed, well nourished patient who is awake, alert, sp4 and in no acute distress. Patient is pleasantly confused Head/Face: Normocephalic, atraumatic. Eyes: Pupils equal round and reactive to light, extra-ocular motions intact. Lids and lashes normal. Conjunctiva and sclera are not injected. Cornea within normal limits. Periorbital areas with no swelling, redness, or edema. ENT: Nares patent. No nasal discharge, no septal abnormalities noted. Tympanic membranes are normal and external auditory canals are clear. Oropharynx with no redness, swelling, or masses, exudates, or evidence of obstruction, uvula midline. Mucous membranes moist. Neck: Trachea midline, no thyromegaly or masses palpated, and no cervical lymphadenopathy. Supple, full range of motion without nuchal rigidity, or vertebral point tenderness. Chest/axilla: Normal chest wall appearance and motion. Nontender with no deformity. No lesions are appreciated. Cardiovascular: Regular rate and rhythm with a normal S1 and S2. No gallops, murmurs, or rubs. No pulse deficits. Respiratory: Lungs have equal breath sounds bilaterally, clear to auscultation and percussion. No rales, rhonchi or wheezes noted. No increased work of breathing, no retractions or nasal flaring. Abdomen/GI: Soft, with normal bowel sounds. No distension or tympany. No guarding or rebound. No evidence of tenderness throughout. Back: No spinal tenderness. No costovertebral tenderness. Skin: Warm, dry with normal turgor. Normal color with no rashes, no lesions, and no evidence of cellulitis. MS/ Extremity: Pulses equal, no cyanosis. Neurovascular intact. Full, normal range of motion. Neuro: Awake and alert,oriented to person,. Cranial nerves II-XII grossly intact. Motor strength 5/5 in all extremities. Sensory grossly intact. Psych: Awake, alert, with orientation to person, alert and oriented to self only. 07:56 ECG was reviewed by the Attending Physician. EKG demonstrates normal sinus rhythm at 78 sp3 bpm with normal intervals, normal QRS, poor R wave progression and nonspecific diffuse ST/T changes without evidence of acute ischemia. Vital Signs: 06:44 BP 161 / 62; Pulse 77; Resp 16; Temp 102.1(O); Pulse Ox 95% on 3 lpm NC; Weight 64.5 al5 kg; Height 5 ft. 2 in. ; 08:14 BP 119 / 43; Pulse 80; Resp 17; Temp 98.7; Pulse Ox 99% ; ll1 09:53 BP 119 / 54; Pulse 64; Resp 16; Pulse Ox 100% ; ll1 11:35 BP 135 / 70; Pulse 58; Resp 16; Pulse Ox 100% ; ll1 06:44 Body Mass Index 26.01 (64.50 kg, 157.48 cm) al5 [place] Coma Score: 06:47 Eye Response: spontaneous(4). Motor Response: obeys commands(6). Verbal Response: sp4 confused(4). Total: 14. MDM: 06:51 Medical Screening Exam initiated sp4 07:39 Data reviewed: vital signs, nurses notes, lab test result(s), EKG, radiologic studies. sp3 07:39 Transition of care:. ED course: 69-year-old female with history of [place]'s disease sp3 now presents with low back pain and fever currently being worked up for sepsis. I will add CT scan of the abdomen pelvis noncontrast given bleeding contender for source is urine.. 11:17 ED course: Patient is COVID-positive. Also potassium at 2.5. We will replenish sp3 potassium and send patient home on antiviral agent.. 07/14 06:44 Order name: BNP; Complete Time: 11:16 sp4 07/14 06:44 Order name: Blood Culture Adult (2) sp4 07/14 06:44 Order name: CBC with Diff; Complete Time: 20:46 sp4 07/14 06:44 Order name: CMP; Complete Time: 11:16 sp4 07/14 06:44 Order name: Protime (+inr); Complete Time: 09:17 sp4 07/14 06:44 Order name: Ptt, Activated; Complete Time: 09:17 sp4 07/14 06:44 Order name: Troponin HS; Complete Time: 11:16 sp4 07/14 06:45 Order name: COVID-19 Ag + Flu A+B Ag; Complete Time: 09:17 sp4 07/14 08:11 Order name: CBC Smear Scan; Complete Time: 20:46 EDMS 07/14 08:39 Order name: UA Rfx Twan Cult if indicated; Complete Time: 09:17 sp3 07/14 06:44 Order name: Chest Single View XRAY; Complete Time: 09:17 sp4 07/14 06:45 Order name: CT Head C Spine; Complete Time: 09:17 sp4 07/14 06:46 Order name: Pelvis XRAY; Complete Time: 09:17 sp4 07/14 07:40 Order name: CT Abd/Pelvis - Without Contrast; Complete Time: 09:17 sp3 07/14 06:44 Order name: Accucheck; Complete Time: 08:15 sp4 07/14 06:44 Order name: Cardiac monitoring; Complete Time: 07:37 sp4 07/14 06:44 Order name: Cath; Complete Time: 08:37 sp4 07/14 06:44 Order name: EKG - Nurse/Tech; Complete Time: 07:37 sp4 07/14 06:44 Order name: IV Saline Lock - Large Bore; Complete Time: 07:14 4 07/14 06:44 Order name: Labs collected and sent; Complete Time: 07:14 4 07/14 06:44 Order name: O2 Per Protocol; Complete Time: 07:00 4 07/14 06:44 Order name: O2 Sat Monitoring; Complete Time: 07:00 4 07/14 06:44 Order name: Vital Signs; Complete Time: 07:14 4 07/14 08:05 Order name: Labs - recollect needed: recollect chemistries they are hemolyzed per bola Jimenez; Complete Time: 10:34 Administered Medications: 07:32 Not Given (Patient Refused): [id number] mg PO once hb 07:37 Drug: Acetaminophen PO 1000 mg PO once Route: PO; ll1 11:22 Follow up: Response: No adverse reaction; Temperature is decreased ll1 08:04 Not Given (Physician Discretion): vancomycin1 grams IVPB once over 2 hrs ll1 08:05 Not Given (Physician Discretion): cefepime2 grams IVPB at 200 ml/hr once over 30 mins; ll1 (mix in NS 100 mL) 08:15 Not Given (Physician Discretion): ns 0.9% (30 ml/kg) 30 ml/kg IV at bolus once; Sepsis ll1 Protocol; to be given as a bolus over 90 minutes 11:35 Drug: Potassium PO Effervescent Tablet 50 mEq PO once; dissolve in 4 ounces of water or ll1 juice Route: PO; 11:53 Follow up: Response: No adverse reaction ll1 Disposition Summary: 07/14/25 11:18 Discharge Ordered Notes: Location: Home sp3 Condition: Stable sp3 Diagnosis - COVID-19, viral illness, hypokalemia sp3 Followup: sp3 - With: Private Physician - When: Upon discharge from the Emergency Department - Reason: Recheck today's complaints, Continuance of care Discharge Instructions: - Discharge Summary Sheet sp3 - Hypokalemia sp3 - COVID-19 sp3 Forms: - Medication Reconciliation Form sp3 - Antibiotic Education sp3 - Prescription Opioid Use sp3 - Patient Portal Instructions sp3 - Leadership Thank You Letter sp3 Prescriptions: - Paxlovid 300 mg (150 mg x 2)-100 mg Oral Tablet, Dose Pack - take 1 dose pack ORAL route as directed on dose pack take TWO 150 mg tablets of sp3 nirmatrelvir with ONE 100 mg tablet of ritonavir twice daily for 5 days; 1 blisters; Refills: 0, Product Selection Permitted Signatures: Dispatcher [employer] EDMS Humaira King, RN RN Kayce Hollis Lynsay, RN RN ll1 Melisa Vital MD MD sp3 Keron Varner MD MD sp4 Elodia Pro RN RN al5 Corrections: (The following items were deleted from the chart) 06:45 06:45 Chest Single View+RAD.RAD.BRZ ordered. EDMS EDMS 06:45 06:45 COVID-19 Ag + Flu A+B Ag+I.LAB.BRZ ordered. EDMS EDMS 06:46 06:46 Pelvis+RAD.RAD.BRZ ordered. EDMS EDMS 08:44 06:45 UA W/ Microscopic+U.LAB.BRZ ordered. EDMS EDMS
[2025-07-14] MEDS ORDERED: POTASSIUM 25 MEQ EFFERV TAB ONE (11:20)
[2025-07-14 11:59] VITALS: TEMP 98.7
[2025-07-14 12:01] VITALS: O2SAT 100
[2025-07-14 12:03] VITALS: BP 135/70
[2025-07-14 15:38] LABS: Anisocytosis 2+; Blood Morphology Comment NOTED (NOT SEEN); Polychromasia 1+; White Blood Cell Scan OK (OK)
== END 2025-07-14 11:53 | disposition home or self-care (01) ==
LOC: ER 06:40
DX: U07.1 COVID-19 (principal); E87.6 Hypokalemia; M54.50 Low back pain, unspecified
CPT/HCPCS: 93005; 85025; 81001; 36415; 85610; 85730; 84484; 80053; 83880; 70450; 72125; 74176; 71045; 72170; 99284; 87428; J3370; J0692; J7030